=== PATIENT | female | born 1940 | race Caucasian/White ===

== ENCOUNTER → 2016-03-16 | Outpatient (CLI) | payer OTHER, MEDICARE ==
[~2016-03-16] MED LIST: ACET325T96 PO; ALBUAER2 INH; ALPHTAB4 PO; AMLO2.5T PO; ASCO250T4 PO; CALC1TAB9 PO; CARB6.5D11 OTB; CHOL100010 PO; CICL160A INH; COEN100C7 PO; ESTR10TA PV; FEXO1TAB49 PO; LEVO50TA PO; LEVO75TA PO; MISCCAP80 PO; MONT1TAB3 PO; MULT-845 PO; PANT40TA PO; POLY335019 PO; SALI1SPR3
[2016-03-16 16:44] LABS: BASO % 1.1 %; BASO ABS # 0.05 K/uL (0-0.2); COMPLETE YES; EOS % 0.4 %; HEMATOCRIT 41.8 % (37-47); IG% 0.2 %; LYMPH % 23.2 %; LYMPH ABS # 1.04 K/uL (1.2-3.4); MEAN CELL VOLUME 89.7 fL (80-100); MEAN CORPUSCULAR HEMOGLOBIN 30.3 pg (25-34); MEAN CORPUSCULAR HGB CONC 33.7 g/dl (32-36); MEAN PLATELET VOLUME 11.4 fL (7.4-10.4); MONO % 9.4 %; NEUT % 65.7 %; PLATELET COUNT 181 K/uL (130-400); RED BLOOD COUNT 4.66 M/uL (4.2-5.4); WHITE BLOOD COUNT 4.48 K/uL (4.8-10.8)
[2016-03-16 16:51] LABS: BLOOD UREA NITROGEN 20 mg/dl (7-18); BUN/CREATININE RATIO 25.2 (10-20); CALCIUM 9.2 mg/dl (8.5-10.1); CARBON DIOXIDE 24 mmol/L (21-32); CHLORIDE 107 mmol/L (98-107); GLUCOSE 98 mg/dl (70-99); POTASSIUM 3.7 mmol/L (3.5-5.1); SODIUM 143 mmol/L (136-145)
[2016-03-16 16:54] LABS: ALB/GLOB RATIO 1.2 (0.9-2); ALKALINE PHOSPHATASE 87 U/L (45-117); ALT/SGPT 21 U/L (12-78); AST/SGOT 20 U/L (15-37)
== END | disposition home or self-care (01) ==
LOC: C.LAB1850 15:23
PROVIDERS: ATTEND Internal Medicine
DX: D69.3 Immune thrombocytopenic purpura (principal)

== ENCOUNTER → 2016-05-24 | Outpatient (CLI) | payer OTHER, MEDICARE | END | disposition home or self-care (01) | LOC: C.PATH 13:24 | PROVIDERS: ATTEND Dermatology | DX: L60.1 Onycholysis (principal) ==

== ENCOUNTER → 2016-07-06 | Outpatient (CLI) | payer OTHER, MEDICARE | END | disposition home or self-care (01) | LOC: C.PATHSPEC 07-05 17:24 → C.LABSPEC 14:24 | PROVIDERS: ATTEND Dermatology | DX: L08.9 Local infection of the skin and subcutaneous tissue, unspecified (principal) ==

== ENCOUNTER → 2016-07-12 | Outpatient (CLI) | payer OTHER, MEDICARE ==
[2016-07-12 14:53] LABS: BLOOD UREA NITROGEN 22 mg/dl (7-18); BUN/CREATININE RATIO 28.2 (10-20); CARBON DIOXIDE 25 mmol/L (21-32); CHLORIDE 106 mmol/L (98-107); CHOLESTEROL 305 mg/dl (0-200); CREATININE 0.78 mg/dl (0.60-1.20); GLUCOSE 99 mg/dl (70-99); POTASSIUM 3.5 mmol/L (3.5-5.1); SODIUM 143 mmol/L (136-145); TRIGLYCERIDES 69 mg/dl (0-150); VERY LOW DENSITY LIPOPROT CALC 14 mg/dl
[2016-07-12 14:55] LABS: CALCIUM 9.6 mg/dl (8.5-10.1)
[2016-07-12 15:04] LABS: CHOLESTEROL/HDL RATIO 3.2; HDL CHOLESTEROL 95 mg/dl; LDL CHOLESTEROL CALCULATED 196 mg/dl
== END | disposition home or self-care (01) ==
LOC: C.LAB1850 13:11
PROVIDERS: ATTEND Internal Medicine
DX: E78.5 Hyperlipidemia, unspecified (principal); E03.9 Hypothyroidism, unspecified; I10 Essential (primary) hypertension; J45.909 Unspecified asthma, uncomplicated

== ENCOUNTER → 2016-09-14 | Outpatient (CLI) | payer OTHER, MEDICARE ==
--- NOTE | 2016-09-14 16:19 | MAMMOGRAPHY REPORT ---
BILATERAL DIGITAL SCREENING MAMMOGRAM TOMOSYNTHESIS WITH CAD: 09/14/2016 CLINICAL HISTORY: Routine screening. Patient has no complaints. TECHNIQUE: Breast tomosynthesis in addition to standard 2D mammography was performed. Current study was also evaluated with a Computer Aided Detection (CAD) system. COMPARISON: Comparison is made to exams dated: 09/08/2015 mammogram, 09/02/2014 mammogram, 09/01/2013 m ammogram, 08/29/2012 mammogram, 08/29/2011 mammogram, and 08/25/2010 mammogram - [facility] enter. BREAST COMPOSITION: The tissue of both breasts is heterogeneously dense, which may obscure small mas ses. FINDINGS: There is evidence of previous surgery in the posterior 12:00 right breast. There are mo derate vascular calcifications and benign-appearing rim calcifications in the breasts. No new suspic ious mass, architectural distortion or cluster of microcalcifications is seen bilaterally. IMPRESSION: ACR BI-RADS CATEGORY 2: BENIGN Stable bilateral mammograms, without mammographic evidence of malignancy. A 1 year screening mammogra m is recommended. The patient will receive written notification of the results. Approximately 10% of breast cancers are not detected with mammography. A negative mammographic report should not delay biopsy if a clinically suggestive mass is present. Sophie Joyce M.D. ay/:09/14/2016 15:26:36 Global Climate Change Researcher: Lacie STALLINGS(Melodie)(Manpreet)(BD), [facility] letter sent: Normal 1/2 BI-RADS Code: ACR BI-RADS Category 2: Benign
== END | disposition home or self-care (01) ==
LOC: C.MAMM 14:46
PROVIDERS: ATTEND Obstetrics & Gynecology
DX: Z12.31 Encounter for screening mammogram for malignant neoplasm of breast (principal); Z85.3 Personal history of malignant neoplasm of breast

== ENCOUNTER → 2016-10-02 | Outpatient (CLI) | payer OTHER, MEDICARE ==
[2016-10-05 14:15] LABS: HERPES SIMPLEX CULT SOURCE OTHER-LOWER LIP; HERPES SIMPLEX VIRUS CULT NOT ISOLATED (NOT ISOLATED)
== END | disposition home or self-care (01) ==
LOC: C.LABSPEC 17:40
PROVIDERS: ATTEND Dermatology
DX: B00.9 Herpesviral infection, unspecified (principal); B35.1 Tinea unguium

== ENCOUNTER → 2016-10-12 | Outpatient (CLI) | payer OTHER, MEDICARE ==
[2015-10-12 14:35] VITALS: BP 138/76; PULSE 64
[2016-10-12 13:52] VITALS: BP 137/71; PULSE 68; TEMP 36.8; O2SAT 97
--- NOTE | 2016-10-12 15:58 | Radiation Oncology Follow-Up ---
Radiation Oncology Follow-Up Date of Visit Oct 12, 2016. 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 She denies any changes to her breast. She has noted no masses or tenderness no change of the axilla. She's had no swelling of her arm. She is up-to-date on mammography. We did discuss at length the procedure for obtaining her mammography results. She has anxiety prior to having her mammogram and then waiting for the results. She noted that this past year she had her mammogram at the end of the week and by Sunday had a result. Previously she had to wait approximately 3 weeks. She now has screening mammograms and previously with a diagnostic mammograms she was given her results prior to leaving the breast Center. Allergies Coded Allergies: Sulfa Drugs (Verified Allergy, Intermediate, HIVES, 06/01/15) Atropine (Unverified Allergy, Mild, pain & diarrhea, 06/01/15) Diphenoxylate (Unverified Allergy, Mild, pain & diarrhea, 06/01/15) Moxifloxacin (Unverified Allergy, Mild, pain & diarrhea, 06/01/15) Amoxicillin (Unverified Allergy, Unknown, GI SYMPTOMS, 06/01/15) Cat Dander (Verified Allergy, Unknown, ALLERGIES, 06/01/15) Ciprofloxacin (Unverified Allergy, Unknown, GI SYMPTOMS, 06/01/15) Clavulanic Acid (Unverified Allergy, Unknown, GI SYMPTOMS, 06/01/15) [place] (Verified Allergy, Unknown, ALLERGIES, 06/01/15) Desloratadine (Verified Allergy, Unknown, UNK, 06/01/15) Dust (Verified Allergy, Unknown, ALLERGIES, 06/01/15) Erythromycin (Unverified Allergy, Unknown, GI SYMPTOMS, 06/01/15) Macrolides (Verified Allergy, Unknown, 06/01/15) Metronidazole (Unverified Allergy, Unknown, GI SYMPTOMS, 06/01/15) Minocycline (Unverified Allergy, Unknown, GI SYMPTOMS, 06/01/15) Home Medications Scheduled Pqork-R-Gvxhhjdgqspad (Beano), 2 TAB PO DAILY Amlodipine Besylate (Norvasc), 1 TAB PO DAILY Ascorbic Acid (Vitamin C), 1 TAB PO DAILY Calcium Citrate-Vitamin D (Citracal + D3 Maximum), 1 TAB PO BID Cholecalciferol (Vitamin D), 1,000 INTER.UNIT PO BID Ciclesonide (Alvesco), 1 PUFF INH DAILY Coenzyme Q10 (Ubidecarenone) (Coq10), 1 CAP PO DAILY Estradiol Vaginal (Vagifem), 1 TAB PV 3XWK Fexofenadine Hcl (Estee Allergy), 1 TAB PO DAILY Levothyroxine Sodium (Synthroid), 1 TAB PO Q2D Levothyroxine Sodium (Synthroid), 1 TAB PO Q2D Montelukast Sodium (Singulair), 1 TAB PO HS Multiple Vitamins W/ Minerals (Centrum Silver Adult 50+), 1 TAB PO Q2D Pantoprazole Sodium (Protonix), 1 TAB PO BID Polyethylene Glycol 3350 (Miralax), 17 GM PO HS Probiotic Product (Probiotic), 1 CAP PO DAILY Scheduled PRN Acetaminophen Tab (Tylenol), 325 MG PO Q6 PRN for prn Albuterol (Ventolin), 2 PUFFS INH QID PRN for SOB/Wheezing Carbamide Peroxide (Otic) (Ear Drops), 1 DROP OTB for prn Saline (Saline Nasal [place]), 1 SPRAY NA QID PRN for prn Review of Systems Gastrointestinal: Symptoms: Constipation GI Comments: Constipation manageable with miralax; Oral: Symptoms: No Problems Respiratory: Symptoms: Dry Cough Other Respiratory: That she relates to a constan postnasal drip; Urinary: Symptoms: Frequency Comments: Follows with Dr. Joyce for blood in urine; Skin: Symptoms: No Problems Breast: Right Upper Arm Measurement: 25.3 Right Mid Arm Measurement: 21.0 Right Wrist Measurement: 15.3 Left Upper Arm Measurement: 27.0 Left Mid Arm Measurement: 21.0 Left Wrist Measurement: 16.3 Arm Dominence: Right Patient Cosmetic Evaluation: Excellent Staff Cosmetic Evalaluation: Excellent Physical Exam Vital Signs Date Time Temp Pulse Resp B/P (MAP) Pulse Ox O2 Delivery O2 Flow Rate FiO2 10/12/16 13:52 36.8 68 12 137/71 97 Pain: Side: Bilateral Patient Pain Scale: 0 - 10 Initial Pain Intensity: 0.0 Fatigue: None General Appearance: no apparent distress Eyes: normal inspection, EOMI ENT: normal ENT inspection, hearing grossly normal Neck: no adenopathy, thyroid normal Respiratory/Chest: lungs clear, no respiratory distress, no accessory muscle use Breast: Right breast reveals well-healed incisions. There are no masses or tenderness and no axillary adenopathy. She has no skin retractions or nipple changes. Using the [place] score cosmesis she has a in excellent outcome. Left breast shows no masses or tenderness and no axillary adenopathy. Cardiovascular: regular rate, rhythm, no gallop, no murmur Abdomen: non tender, soft, no organomegaly Extremities: no pedal edema Neurologic/Psychiatric: no motor/sensory deficits, alert, normal mood/affect Skin: warm/dry Laboratory Studies Test 07/12/16 13:23 10/02/16 00:00 10/12/16 14:44 Sodium Level 143 mmol/L (136-145) 142 mmol/L (136-145) Potassium Level 3.5 mmol/L (3.5-5.1) 3.8 mmol/L (3.5-5.1) Chloride Level 106 mmol/L (98-107) 109 mmol/L (98-107) Carbon Dioxide Level 25 mmol/L (21-32) 28 mmol/L (21-32) Anion Gap 12.0 mmol/L (3-11) 5.0 mmol/L (3-11) Blood Urea Nitrogen 22 mg/dl (7-18) 21 mg/dl (7-18) Creatinine 0.78 mg/dl (0.60-1.20) 0.74 mg/dl (0.60-1.20) Estimated GFR () 84.4 89.9 Estimated GFR (Non- 72.8 77.6 BUN/Creatinine Ratio 28.2 (10-20) 27.8 (10-20) Random Glucose 99 mg/dl (70-99) 95 mg/dl (70-99) Calcium Level 9.6 mg/dl (8.5-10.1) 9.3 mg/dl (8.5-10.1) Triglycerides Level 69 mg/dl (0-150) Cholesterol Level 305 mg/dl (0-200) HDL Cholesterol 95 mg/dl LDL Cholesterol, Calculated 196 mg/dl VLDL Cholesterol, Calculated 14 mg/dl Cholesterol/HDL Ratio 3.2 Thyroid Stimulating Hormone (TSH) 1.360 uIu/ml (0.300-4.500) Herpes Simplex Virus Culture Source OTHER-LOWER LIP Herpes Simplex Virus Culture NOT ISOLATED (NOT ISOLATED) White Blood Count 4.20 K/uL (4.8-10.8) Red Blood Count 4.64 M/uL (4.2-5.4) Hemoglobin 14.0 g/dL (12.0-16.0) Hematocrit 42.3 % (37-47) Mean Corpuscular Volume 91.2 fL (80-100) Mean Corpuscular Hemoglobin 30.2 pg (25-34) Mean Corpuscular Hemoglobin Concent 33.1 g/dl (32-36) Platelet Count 140 K/uL (130-400) Mean Platelet Volume 10.3 fL (7.4-10.4) Neutrophils (%) (Auto) 58.9 % Lymphocytes (%) (Auto) 27.9 % Monocytes (%) (Auto) 11.2 % Eosinophils (%) (Auto) 1.0 % Basophils (%) (Auto) 1.0 % Neutrophils # (Auto) 2.48 K/uL (1.4-6.5) Lymphocytes # (Auto) 1.17 K/uL (1.2-3.4) Monocytes # (Auto) 0.47 K/uL (0.11-0.59) Eosinophils # (Auto) 0.04 K/uL (0-0.5) Basophils # (Auto) 0.04 K/uL (0-0.2) RDW Standard Deviation 49.4 fL (36.4-46.3) RDW Coefficient of Variation 14.7 % (11.5-14.5) Immature Granulocyte % (Auto) 0.0 % Immature Granulocyte # (Auto) 0.00 K/uL (0.00-0.02) Est Creatinine Clear Calc Drug Dose 63.6 ml/min Total Bilirubin 0.8 mg/dl (0.2-1) Aspartate Amino Transferase (AST) 19 U/L (15-37) Alanine Aminotransferase (ALT) 25 U/L (12-78) Alkaline Phosphatase 83 U/L (45-117) Lactate Dehydrogenase 183 U/L (84-246) Total Protein 7.2 gm/dl (6.4-8.2) Albumin 4.0 gm/dl (3.4-5.0) Globulin 3.2 gm/dl (2.5-4.0) Albumin/Globulin Ratio 1.3 (0.9-2) Additional Studies Patient: NICK ROMERO Rec: [id number] Address1: [address] Address2: Acct ID: [id number] Date: 1940 Sex: F Ref Phy: Heide Farley M.D. Att Phy: Heide Farley M.D. Elvia Phy: Luis Daniel Flores M.D. Inter Phy: Sophie Joyce MD [facility] Zip: [place] [address] SC: C.MAMM Report #: [id number] Supervisor [place] Department: [facility] Diagnosis: ASYMPTOMATIC, HX BREAST CANCER Service Date: 09/14/16 MNE: [id number] Ordering Dr: Heide Farley M.D. CC: Heide Farley M.D. CONF: DICTATED BY: Sophie Joyce MD MAMMOGRAPHY REPORT BILATERAL DIGITAL SCREENING MAMMOGRAM TOMOSYNTHESIS WITH CAD: 09/14/2016 CLINICAL HISTORY: Routine screening. Patient has no complaints. TECHNIQUE: Breast tomosynthesis in addition to standard 2D mammography was performed. Current study was also evaluated with a Computer Aided Detection (CAD ) system. COMPARISON: Comparison is made to exams dated: 09/08/2015 mammogram, 09/02/2014 mammogram, 09/01/2013 mammogram, 08/29/2012 mammogram, 08/29/2011 mammogram, and mammogram - [facility]. BREAST COMPOSITION: The tissue of both breasts is heterogeneously dense, which may obscure small masses. FINDINGS: There is evidence of previous surgery in the posterior 12:00 right breast. There are moderate vascular calcifications and benign-appearing rim calcifications in the breasts. No new suspicious mass, architectural distortion or cluster of microcalcifications is seen bilaterally. IMPRESSION: ACR BI-RADS CATEGORY 2: BENIGN Stable bilateral mammograms, without mammographic evidence of malignancy. A 1 year screening mammogram is recommended. The patient will receive written notification of the results. Approximately 10% of breast cancers are not detected with mammography. A negative mammographic report should not delay biopsy if a clinically suggestive mass is present. Sophie Joyce M.D. ay/:09/14/2016 15:26:36 Production Potter: Lacie BOYER)(Manpreet)(BD), [facility] letter sent: Normal 1/2 BI-RADS Code: ACR BI-RADS Category 2: Benign Dictated by: Sophie Joyce MD Signed by: Sophie Joyce MD Assessment & Plan Continue annual mammography. We discussed having her mammogram scheduled on a Sunday so that she could have her results by Sunday. We also discussed the patient portal its available at [facility]. She currently does not have this available at home. I discussed with her she could have her results the next day if she wanted to set up this program. She was happy with the idea of having a mammogram earlier in the week to have the results by Sunday. We asked her to return to our office in 1 year. She may call if she has any questions or concerns in the interim. Total Time In Follow-Up I spent 20 minutes the patient performing examination. I spent 15 minutes reviewing information on completing this note. Copy To Abraham Morfin D.O.; ,Luis Daniel Miner M.D.
== END | disposition home or self-care (01) ==
LOC: C.ONC 13:28
PROVIDERS: ATTEND Physician Assistant Medical
DX: Z08 Encounter for follow-up examination after completed treatment for malignant neoplasm (principal); Z92.3 Personal history of irradiation; Z85.3 Personal history of malignant neoplasm of breast; D69.3 Immune thrombocytopenic purpura

== ENCOUNTER → 2016-10-26 | Outpatient (CLI) | payer OTHER, MEDICARE ==
--- NOTE | 2016-10-26 18:20 | DIAGNOSTIC IMAGING REPORT ---
ABDOMEN 2VIEW W/PA CHEST RTN CLINICAL HISTORY: 76 years-old Female presenting with CONSTIPATION. TECHNIQUE: PA view of the chest and supine and upright views of the abdomen were obtained. COMPARISON: CT from 06/01/2015. FINDINGS: Carotid mediastinal silhouette lungs and pleural spaces clear. Degenerative changes of the right glenohumeral joint.. Nonobstructive bowel gas pattern. Moderate stool burden noted in the colon. No gross pneumoperitoneum. Calcification in the pelvis system with calcified uterine fibroid. Splenic arterial calcifications also noted. No convincing evidence of calcifications projecting over the kidneys or along the courses of the ureters. Scoliotic curvature of the spine with associated degenerative changes. IMPRESSION: 1. No acute cardiopulmonary disease. 2. Moderate stool burden consistent with constipation. No bowel obstruction. Electronically signed by: Andres Mackey M.D. 10/26/2016 6:19 PM Dictated Date/Time: 10/26/2016 6:15 PM
== END | disposition home or self-care (01) ==
LOC: C.RAD 17:51
PROVIDERS: ATTEND Registered Nurse
DX: K59.00 Constipation, unspecified (principal)

== ENCOUNTER → 2016-12-06 | Outpatient (CLI) | payer OTHER, MEDICARE ==
[2016-12-06 17:33] LABS: BASO % 1.9 %; BASO ABS # 0.07 K/uL (0-0.2); COMPLETE YES; EOS % 1.1 %; HEMATOCRIT 42.3 % (37-47); IG% 0.3 %; LYMPH ABS # 1.16 K/uL (1.2-3.4); MEAN CELL VOLUME 91.6 fL (80-100); MEAN CORPUSCULAR HEMOGLOBIN 29.7 pg (25-34); MEAN CORPUSCULAR HGB CONC 32.4 g/dl (32-36); MEAN PLATELET VOLUME 10.6 fL (7.4-10.4); MONO % 7.4 %; NEUT % 57.3 %; PLATELET COUNT 168 K/uL (130-400); RED BLOOD COUNT 4.62 M/uL (4.2-5.4); WHITE BLOOD COUNT 3.63 K/uL (4.8-10.8)
[2016-12-06 17:55] LABS: ALT/SGPT 27 U/L (12-78); BLOOD UREA NITROGEN 22 mg/dl (7-18); BUN/CREATININE RATIO 26.9 (10-20); CALCIUM 9.6 mg/dl (8.5-10.1); CARBON DIOXIDE 24 mmol/L (21-32); CHLORIDE 107 mmol/L (98-107); CREATININE 0.83 mg/dl (0.60-1.20); GLUCOSE 91 mg/dl (70-99); POTASSIUM 3.8 mmol/L (3.5-5.1); SODIUM 143 mmol/L (136-145)
[2016-12-06 18:06] LABS: ALB/GLOB RATIO 1.2 (0.9-2); ALKALINE PHOSPHATASE 86 U/L (45-117); AST/SGOT 24 U/L (15-37)
== END | disposition home or self-care (01) ==
LOC: C.LAB1850 16:39
PROVIDERS: ATTEND Internal Medicine
DX: D69.3 Immune thrombocytopenic purpura (principal); E03.9 Hypothyroidism, unspecified

== ENCOUNTER → 2017-01-26 | Outpatient (CLI) | payer OTHER, MEDICARE ==
--- NOTE | 2017-01-26 17:53 | DIAGNOSTIC IMAGING REPORT ---
RIGHT HIP 2 VIEWS HISTORY: Right HIP PAIN COMPARISON: None. FINDINGS: There is no fracture or dislocation. Soft tissues are unremarkable. Mild cartilage space narrowing within the right hip and tiny marginal osteophytes. This is consistent with degenerative change. The visualized pelvic bones are intact. IMPRESSION: Mild right hip osteoarthritis. No fracture or dislocation. Electronically signed by: Hugo Drake M.D. 01/26/2017 5:51 PM Dictated Date/Time: 01/26/2017 5:50 PM
== END | disposition home or self-care (01) ==
LOC: C.RAD1850 16:39
PROVIDERS: ATTEND Internal Medicine
DX: M25.551 Pain in right hip (principal)

== ENCOUNTER 2017-03-13 19:26 | Emergency (ER) | payer OTHER, MEDICARE ==
[~2017-03-13] VITALS: Ht 167.6 cm; Wt 72.2 kg
[~2017-03-13 19:26] MED LIST changes: -ACET-1693 PO; +ACET325T96 PO; -BLACK PEPPER PO; -CEFD1CAP14 PO; -CHOL100027 PO; -IVER1CRE TOP; -MOME0.1O3 TOP; -NZRCR TOP; -PLMINS INH; -PRD10 PO; -PRVHFAIN INH; -SALI-3; +SALI1SPR3; -SNG10 PO; -SYN50 PO; -SYN75 PO; -UBIDECARENONE PO; -VGFVS/24 PV; -XRL20 PO
[2017-03-13 19:42] VITALS: TEMP 37.2; Ht 167.6 cm; Wt 72.2 kg
[2017-03-13] MEDS ORDERED: ALBUT/IPRATROP 3MG/0.5MG NEB 3 ML VIAL INH STA (20:30)
[2017-03-13] MEDS ORDERED: CEFTRIAXONE SOD INJ 1 GM ADDVIAL IV STA (20:33)
--- NOTE | 2017-03-13 20:40 | EMERGENCY ROOM VISIT NOTE ---
History Report prepared by Nico: Yani Brumfield Under the Supervision of: Dr. Luis Daniel Watts D.O. First contact with patient: 20:21 Chief Complaint: RESPIRATORY PROBLEMS Stated Complaint: PNEUMONIA- PHYSICIAN REFERRED History of Present Illness The patient is a 76 year old female who presents to the Emergency Room with complaints of worsening generalized illness beginning ten days ago. The patient notes that on Sunday, ten days ago, she started to feel fatigued and short of breath. She also reports a productive cough, abdominal pain, and decreased appetite but denies urinary symptoms or increased swelling to her legs. At baseline, the patient has swelling to her legs. The patient was able to get into her PCP's office today. While there, she had a chest x-ray. Then she was told she had pneumonia and was refereed to the ED. She denies having a flu swab at her PCPs office today. The patient has a history of IBS. The patient notes sensitivity to antibiotics. The patient does not drink alcohol and denies any recent travel. Source of History: patient Onset: ten days ago Position: other (generalized illness) Quality: other (illness) Timing: worsening Associated Symptoms: + cough, + SOB, + abdominal pain, + fatigue, No urinary symptoms Review of Systems See HPI for pertinent positives & negatives. A total of 10 systems reviewed and were otherwise negative. Past Medical & Surgical Medical Problems: (1) Asthma (2) Breast cancer (3) Hypertension (4) Positive ARTEMIO (antinuclear antibody) (5) Thrombocytopenia (6) Vaginal irritation Family History Cancer Diabetes mellitus Heart disease Hypertension Lung disease Social History Smoking Status: Never Smoker Alcohol Use: none Housing Status: lives with family Occupation Status: unemployed Current/Historical Medications Scheduled Opmxq-K-Qfdhuueyrkyef (Beano), 2 TABS PO DAILY Amlodipine Besylate (Norvasc), 2.5 MG PO DAILY Ascorbic Acid (Vitamin C), 250 MG PO DAILY Calcium Citrate-Vitamin D (Citracal + D3 Maximum), 1 TAB PO BID Cefdinir (Omnicef), 300 MG PO Q12H Cholecalciferol (Vitamin D 1000 Unit), 2,000 INTER.UNIT PO DAILY Ciclesonide (Alvesco), 1 PUFF INH DAILY Coenzyme Q10 (Ubidecarenone) (Coq10), 100 MG PO DAILY Estradiol (Vagifem), 10 MCG PV 3XWK Ivermectin (Rosacea) (Soolantra), 1 APPLN TOP DAILY Levothyroxine Sodium (Synthroid), 50 MCG PO Q2D Levothyroxine Sodium (Synthroid), 75 MCG PO Q2D Montelukast Sod (Montelukast Sodium), 10 MG PO HS Multiple Vitamins W/ Minerals (Centrum Silver Adult 50+), 1 TAB PO Q2D Pantoprazole Sodium (Protonix), 40 MG PO BID Probiotic Product (Probiotic), 1 CAP PO DAILY Scheduled PRN Acetaminophen Tab (Tylenol), 325 MG PO Q6H PRN for Pain or Fever Albuterol (Ventolin Hfa), 2 PUFFS INH Q6H PRN for SOB/Wheezing Fexofenadine Hcl (Estee Allergy), 180 MG PO DAILY PRN for Allergy Symptoms Polyethylene Glycol 3350 (Miralax), 17 GM PO BID PRN for Constipation Saline (Saline Nasal [place]), 1 SPRAY NA QID PRN for Nasal Dryness Allergies Coded Allergies: Sulfa Drugs (Verified Allergy, Intermediate, HIVES, 06/01/15) Atropine (Unverified Allergy, Mild, pain & diarrhea, 06/01/15) Diphenoxylate (Unverified Allergy, Mild, pain & diarrhea, 06/01/15) Moxifloxacin (Unverified Allergy, Mild, pain & diarrhea, 06/01/15) Amoxicillin (Unverified Allergy, Unknown, GI SYMPTOMS, 06/01/15) Cat Dander (Verified Allergy, Unknown, ALLERGIES, 06/01/15) Ciprofloxacin (Unverified Allergy, Unknown, GI SYMPTOMS, 06/01/15) Clavulanic Acid (Unverified Allergy, Unknown, GI SYMPTOMS, 06/01/15) [place] Tree (Verified Allergy, Unknown, ALLERGIES, 06/01/15) Desloratadine (Verified Allergy, Unknown, UNK, 06/01/15) Dust (Verified Allergy, Unknown, ALLERGIES, 06/01/15) Erythromycin (Unverified Allergy, Unknown, GI SYMPTOMS, 06/01/15) Macrolides (Verified Allergy, Unknown, 06/01/15) Metronidazole (Unverified Allergy, Unknown, GI SYMPTOMS, 06/01/15) Minocycline (Unverified Allergy, Unknown, GI SYMPTOMS, 06/01/15) Physical Exam Vital Signs Date Time Temp Pulse Resp B/P (MAP) Pulse Ox O2 Delivery O2 Flow Rate FiO2 03/13/17 23:01 84 145/64 95 03/13/17 22:46 88 16 94 03/13/17 22:31 84 19 94 03/13/17 22:30 147/71 03/13/17 22:16 90 20 94 03/13/17 22:01 83 139/73 95 03/13/17 21:46 84 100 03/13/17 21:41 85 100 03/13/17 21:31 144/83 03/13/17 21:26 78 12 100 03/13/17 21:17 157/86 03/13/17 21:11 72 03/13/17 21:11 79 20 96 Room Air 03/13/17 19:42 37.2 100 20 141/78 100 Room Air Physical Exam GENERAL: Patient is awake, alert, and in no acute distress. Patient is mildly anxious appearing but resting comfortably. EYES: The conjunctivae are clear. The pupils are round and reactive. EARS, NOSE, MOUTH AND THROAT: The nose is without any evidence of any deformity. Mucous membranes are moist tongue is midline NECK: The neck is nontender and supple. RESPIRATORY: Lung sounds diminished throughout, scattered rhonchi, diminished breath sounds at right base. CARDIOVASCULAR: Irregular rate, no definite murmurs noted to auscultation. GASTROINTESTINAL: The abdomen is soft. Bowel sounds are present in all quadrants. Abdomen is nontender MUSCULOSKELETAL/EXTREMITIES: There is no evidence of gross deformity full range of motion is noted in the hips and shoulders SKIN: There is no obvious evidence of any rash. There are no petechiae, pallor or cyanosis noted. NEUROLOGIC: Patient is awake alert and oriented x3 Medical Decision & Procedures Laboratory Results 03/13/17 21:10 Red Blood Count 4.31, Mean Corpuscular Volume 89.8, Mean Corpuscular Hemoglobin 30.4, Mean Corpuscular Hemoglobin Concent 33.9, Mean Platelet Volume 10.3, Neutrophils (%) (Auto) 74.6, Lymphocytes (%) (Auto) 13.6, Monocytes (%) (Auto) 11.3, Eosinophils (%) (Auto) 0.3, Basophils (%) (Auto) 0.1, Neutrophils # (Auto ) 5.00, Lymphocytes # (Auto) 0.91, Monocytes # (Auto) 0.76, Eosinophils # (Auto ) 0.02, Basophils # (Auto) 0.01 03/13/17 21:10 Test 03/13/17 21:10 White Blood Count 6.71 K/uL (4.8-10.8) Red Blood Count 4.31 M/uL (4.2-5.4) Hemoglobin 13.1 g/dL (12.0-16.0) Hematocrit 38.7 % (37-47) Mean Corpuscular Volume 89.8 fL (80-100) Mean Corpuscular Hemoglobin 30.4 pg (25-34) Mean Corpuscular Hemoglobin Concent 33.9 g/dl (32-36) Platelet Count 247 K/uL (130-400) Mean Platelet Volume 10.3 fL (7.4-10.4) Neutrophils (%) (Auto) 74.6 % Lymphocytes (%) (Auto) 13.6 % Monocytes (%) (Auto) 11.3 % Eosinophils (%) (Auto) 0.3 % Basophils (%) (Auto) 0.1 % Neutrophils # (Auto) 5.00 K/uL (1.4-6.5) Lymphocytes # (Auto) 0.91 K/uL (1.2-3.4) Monocytes # (Auto) 0.76 K/uL (0.11-0.59) Eosinophils # (Auto) 0.02 K/uL (0-0.5) Basophils # (Auto) 0.01 K/uL (0-0.2) RDW Standard Deviation 46.4 fL (36.4-46.3) RDW Coefficient of Variation 14.1 % (11.5-14.5) Immature Granulocyte % (Auto) 0.1 % Immature Granulocyte # (Auto) 0.01 K/uL (0.00-0.02) Prothrombin Time 11.4 SECONDS (9.0-12.0) Prothromb Time International Ratio 1.1 (0.9-1.1) Activated Partial Thromboplast Time 29.0 SECONDS (21.0-31.0) Partial Thromboplastin Ratio 1.1 Anion Gap 8.0 mmol/L (3-11) Est Creatinine Clear Calc Drug Dose 73.7 ml/min Estimated GFR () 99.1 Estimated GFR (Non- 85.5 BUN/Creatinine Ratio 16.7 (10-20) Calcium Level 8.7 mg/dl (8.5-10.1) Total Bilirubin 0.6 mg/dl (0.2-1) Aspartate Amino Transf (AST/SGOT) 15 U/L (15-37) Alanine Aminotransferase (ALT/SGPT) 23 U/L (12-78) Alkaline Phosphatase 99 U/L (45-117) Troponin I < 0.015 ng/ml (0-0.045) Total Protein 7.2 gm/dl (6.4-8.2) Albumin 3.5 gm/dl (3.4-5.0) Globulin 3.7 gm/dl (2.5-4.0) Albumin/Globulin Ratio 0.9 (0.9-2) Laboratory results per my review. Medications Administered Medications (Trade) Dose Ordered Sig/Drew Route Start Time Stop Time Status Last Admin Dose Admin Albuterol/ Ipratropium (Duoneb) 3 ml NOW STAT INH 03/13/17 20:30 03/13/17 20:33 DC 03/13/17 21:23 3 ML Ceftriaxone Sodium (Rocephin Inj) 1 gm NOW STAT IV 03/13/17 20:33 03/13/17 20:34 DC 03/13/17 21:37 1 GM Potassium Chloride (Klor-Con M10) 10 meq NOW STAT PO 03/13/17 22:52 03/13/17 22:53 DC 03/13/17 23:02 10 MEQ ECG Indication: SOB/dyspnea Rate (beats per minute): 67 Rhythm: atrial fibrillation Findings: other (No PVC, no acute ST segment) Comparison ECG Date: 08/01/08 Change: Atrial fibrillation new. ED Course 2026: The patient was evaluated in room B11B. A complete history and physical examination were performed. 2029: Ordered Duoneb 3ml INH. 2032: Ordered Rocephin Inj 1 gm IV. 2145: The patient states she has a history of atrial fibrillation but is not on any anticoagulation. 2251: Ordered Potassium Chloride 10 meq PO. 2302: Upon reevaluation, the patient is resting comfortably. I discussed the results and treatment plan with the patient. She verbalized agreement of the treatment plan. The patient was discharged home. Medical Decision Differential diagnosis: Etiologies such as infections, reactive airway disease, pneumonia, pneumothorax , COPD, CHF, cardiac ischemia, pulmonary embolism, musculoskeletal, gastrointestinal, as well as others were entertained. Nursing notes reviewed. The patient's chest x-ray from earlier was also reviewed. The patient is a 76-year-old female who presented to the emergency department at the request of her primary care physician for pneumonia. The patient's had a cough. She had a chest x-ray is an outpatient showed a pneumonia. The patient was not hypoxic. She was treated with IV antibiotic in emergency department. I discussed the patient's laboratory and radiographic studies with her. She was encouraged to continue all medications as prescribed and follow-up with her family doctor this week. Otherwise she was encouraged to rest and avoid any strenuous activity and return to the emergency department immediately if symptoms change worsen or the need arises. Medication Reconcilliation Current Medication List: was personally reviewed by me Blood Pressure Screening Patient's blood pressure: Elevated blood pressure Blood pressure disposition: Elevated BP felt to be situational Impression Primary Impression: Pneumonia Scribe Attestation The scribe's documentation has been prepared under my direction and personally reviewed by me in its entirety. I confirm that the note above accurately reflects all work, treatment, procedures, and medical decision making performed by me. Departure Information Dispostion Home / Self-Care Prescriptions Cefdinir (Omnicef) 300 Mg Cap 300 MG PO Q12H, #14 CAP Prov: Luis Daniel Watts, DO 03/13/17 Referrals Luis Daniel Flores M.D. (PCP) Forms HOME CARE DOCUMENTATION FORM, IMPORTANT VISIT INFORMATION, WORK / SCHOOL INSTRUCTIONS Patient Instructions My [facility], Pneumonia Additional Instructions Follow-up with your family for reevaluation. Continue all medications as prescribed. Drink plenty clear liquids. I would recommend that you have a repeat EKG as well as repeat electrolytes to recheck the abnormalities were noted in the emergency Department this evening. Problem Qualifiers Primary Impression: Pneumonia Pneumonia type: due to unspecified organism Laterality: unspecified laterality Lung location: unspecified part of lung Qualified Codes: J18.9 - Pneumonia, unspecified organism
[2017-03-13 21:33] LABS: BASO % 0.1 %; BASO ABS # 0.01 K/uL (0-0.2); EOS % 0.3 %; EOS ABS # 0.02 K/uL (0-0.5); HEMATOCRIT 38.7 % (37-47); HEMOGLOBIN 13.1 g/dL (12.0-16.0); IG# 0.01 K/uL (0.00-0.02); LYMPH % 13.6 %; LYMPH ABS # 0.91 K/uL (1.2-3.4); MEAN CELL VOLUME 89.8 fL (80-100); MEAN CORPUSCULAR HEMOGLOBIN 30.4 pg (25-34); MEAN CORPUSCULAR HGB CONC 33.9 g/dl (32-36); MEAN PLATELET VOLUME 10.3 fL (7.4-10.4); MONO % 11.3 %; MONO ABS # 0.76 K/uL (0.11-0.59); NEUT % 74.6 %; PLATELET COUNT 247 K/uL (130-400); RED CELL DISTRIBUTION WIDTH CV 14.1 % (11.5-14.5); RED CELL DISTRIBUTION WIDTH SD 46.4 fL (36.4-46.3); WHITE BLOOD COUNT 6.71 K/uL (4.8-10.8)
[2017-03-13 21:43] LABS: INR 1.1 (0.9-1.1)
[2017-03-13] MEDS ORDERED: SNG10 PO (22:06)
[2017-03-13] MEDS ORDERED: SYN75 PO (22:06)
[2017-03-13] MEDS ORDERED: SYN50 PO (22:06)
[2017-03-13] MEDS ORDERED: IVER1CRE TOP (22:06)
[2017-03-13] MEDS ORDERED: VGFVS/24 PV (22:06)
[2017-03-13 22:21] LABS: ALBUMIN 3.5 gm/dl (3.4-5.0); ALKALINE PHOSPHATASE 99 U/L (45-117); ALT/SGPT 23 U/L (12-78); AST/SGOT 15 U/L (15-37); BLOOD UREA NITROGEN 11 mg/dl (7-18); CALCIUM 8.7 mg/dl (8.5-10.1); CARBON DIOXIDE 27 mmol/L (21-32); CREATININE 0.64 mg/dl (0.60-1.20); GLUCOSE 107 mg/dl (70-99); POTASSIUM 2.9 mmol/L (3.5-5.1); SODIUM 139 mmol/L (136-145); TOTAL PROTEIN 7.2 gm/dl (6.4-8.2)
[2017-03-13] MEDS ORDERED: PRVHFAIN INH (22:23)
[2017-03-13] MEDS ORDERED: CHOL100027 PO (22:23)
[2017-03-13] MEDS ORDERED: POTASSIUM CHLORIDE 10 MEQ TABCR PO STA (22:52)
[2017-03-13] MEDS ORDERED: CEFD1CAP14 PO (23:00)
[2017-03-13 23:01] VITALS: BP 145/64; PULSE 84; O2SAT 95
== END 2017-03-13 23:11 | disposition home or self-care (01) ==
LOC: C.EDB 19:27
DX: J18.9 Pneumonia, unspecified organism (principal); K58.9 Irritable bowel syndrome, unspecified; J45.909 Unspecified asthma, uncomplicated; I10 Essential (primary) hypertension; Z85.3 Personal history of malignant neoplasm of breast; Z80.9 Family history of malignant neoplasm, unspecified; Z83.3 Family history of diabetes mellitus; Z82.49 Family history of ischemic heart disease and other diseases of the circulatory system; Z79.899 Other long term (current) drug therapy

== ENCOUNTER → 2017-03-13 | Outpatient (CLI) | payer OTHER, MEDICARE ==
[~2017-03-13] MED LIST changes: +ACET-1693 PO; -ACET325T96 PO; +BLACK PEPPER PO; +CEFD1CAP14 PO; +CHOL100027 PO; +IVER1CRE TOP; +MOME0.1O3 TOP; +NZRCR TOP; +PLMINS INH; +PRD10 PO; +PRVHFAIN INH; +SALI-3; -SALI1SPR3; +SNG10 PO; +SYN50 PO; +SYN75 PO; +UBIDECARENONE PO; +VGFVS/24 PV; +XRL20 PO
--- NOTE | 2017-03-13 17:08 | DIAGNOSTIC IMAGING REPORT ---
CHEST 2 VIEWS ROUTINE HISTORY: 76 years-old Female R50.9 [id number] Cough productive of purulent sputum acute fever with cough COMPARISON: Acute abdominal series radiographs 10/26/2016, CT 08/03/2013 TECHNIQUE: PA and lateral views of the chest FINDINGS: Subsegmental alveolar opacities are present within the basal right lower lobe. There is associated trace right pleural effusion. No pneumothorax. Mild cardiomegaly without overt pulmonary edema. Left lung is generally clear. Atherosclerosis of the aorta. Advanced degenerative changes of the shoulders with dextroscoliosis of the lower thoracic spine. IMPRESSION: Alveolar opacities of the right lower lobe suggest pneumonia or aspiration pneumonitis. Small right pleural effusion is likely parapneumonic. The above report was generated using voice recognition software. It may contain grammatical, syntax or spelling errors. Electronically signed by: Kam Sheehan M.D. 03/13/2017 5:06 PM Dictated Date/Time: 03/13/2017 5:02 PM
== END | disposition home or self-care (01) ==
LOC: C.RAD1850 16:49
PROVIDERS: ATTEND Internal Medicine
DX: R05 Cough (principal); R50.9 Fever, unspecified; R91.8 Other nonspecific abnormal finding of lung field; J90 Pleural effusion, not elsewhere classified

== ENCOUNTER → 2017-03-16 | Outpatient (CLI) | payer OTHER, MEDICARE ==
[~2017-03-16] MED LIST changes: +ACET-1693 PO; -ACET325T96 PO; -ALBUAER2 INH; +BLACK PEPPER PO; -CARB6.5D11 OTB; +CEFD1CAP14 PO; -CHOL100010 PO; +CHOL100027 PO; -ESTR10TA PV; +IVER1CRE TOP; -LEVO50TA PO; -LEVO75TA PO; +MOME0.1O3 TOP; -MONT1TAB3 PO; +NZRCR TOP; +PLMINS INH; +PRD10 PO; +PRVHFAIN INH; +SALI-3; -SALI1SPR3; +SNG10 PO; +SYN50 PO; +SYN75 PO; +UBIDECARENONE PO; +VGFVS/24 PV; +XRL20 PO
== END | disposition home or self-care (01) ==
LOC: C.LAB1850 14:31
PROVIDERS: ATTEND Physician Assistant
DX: E87.6 Hypokalemia (principal)

== ENCOUNTER → 2017-03-29 | Outpatient (CLI) | payer OTHER, MEDICARE ==
[~2017-03-29] MED LIST changes: -ACET-1693 PO; +ACET325T96 PO; -BLACK PEPPER PO; -MOME0.1O3 TOP; -NZRCR TOP; -PLMINS INH; -PRD10 PO; -SALI-3; +SALI1SPR3; -UBIDECARENONE PO; -XRL20 PO
== END | disposition home or self-care (01) ==
LOC: C.LAB1850 15:10
PROVIDERS: ATTEND Physician Assistant
DX: E87.6 Hypokalemia (principal)

== ENCOUNTER → 2017-04-16 | Outpatient (CLI) | payer OTHER, MEDICARE ==
--- NOTE | 2017-04-16 16:17 | DIAGNOSTIC IMAGING REPORT ---
CHEST 2 VIEWS ROUTINE CLINICAL HISTORY: 76 years-old Female presenting with J18.9 community acquired pneumonia. TECHNIQUE: PA and lateral views of the chest were obtained. COMPARISON: 03/13/2017. FINDINGS: Atherosclerosis of aortic arch. Cardiac silhouette mildly enlarged. Blunting of the bilateral posterior costophrenic sulci right or on the right. No new focal infiltrate. Degenerative changes of the thoracic spine. Degenerative changes of the bilateral glenohumeral joints. Surgical clips noted in the right axilla. Upper abdomen normal. IMPRESSION: 1. Trace bilateral pleural effusions and possible minimal bibasilar atelectasis suspected. No focal infiltrate to suggest pneumonia. 2. Mild cardiomegaly. No lucila pulmonary edema. Electronically signed by: Andres Mackey M.D. 04/16/2017 4:15 PM Dictated Date/Time: 04/16/2017 4:13 PM
== END | disposition home or self-care (01) ==
LOC: C.RAD1850 15:56
PROVIDERS: ATTEND Internal Medicine Pulmonary Disease
DX: J18.9 Pneumonia, unspecified organism (principal)

== ENCOUNTER → 2017-04-24 | Outpatient (CLI) | payer OTHER, MEDICARE ==
[~2017-04-24] MED LIST changes: +ACET-1693 PO; -ACET325T96 PO
[2017-04-24 16:46] LABS: HEMATOCRIT 39.8 % (37-47); HEMOGLOBIN 13.3 g/dL (12.0-16.0); MEAN CELL VOLUME 89.4 fL (80-100); MEAN CORPUSCULAR HEMOGLOBIN 29.9 pg (25-34); MEAN CORPUSCULAR HGB CONC 33.4 g/dl (32-36); MEAN PLATELET VOLUME 11.1 fL (7.4-10.4); PLATELET COUNT 194 K/uL (130-400); RED CELL DISTRIBUTION WIDTH SD 49.1 fL (36.4-46.3); WHITE BLOOD COUNT 4.37 K/uL (4.8-10.8)
[2017-04-24 17:05] LABS: BLOOD UREA NITROGEN 26 mg/dl (7-18); CALCIUM 9.3 mg/dl (8.5-10.1); CARBON DIOXIDE 25 mmol/L (21-32); GLUCOSE 90 mg/dl (70-99); POTASSIUM 3.6 mmol/L (3.5-5.1); SODIUM 141 mmol/L (136-145)
== END | disposition home or self-care (01) ==
LOC: C.LAB1850 15:29
PROVIDERS: ATTEND Internal Medicine
DX: E87.6 Hypokalemia (principal); D69.3 Immune thrombocytopenic purpura

== ENCOUNTER 2017-07-10 20:15 | Inpatient (IN) | payer OTHER, MEDICARE ==
[~2017-07-10] VITALS: Ht 170.2 cm; Wt 73.4 kg
[~2017-07-10 20:15] MED LIST changes: -BLACK PEPPER PO; -CHOL100027 PO; -IVER1CRE TOP; -MOME0.1O3 TOP; -NZRCR TOP; -PRVHFAIN INH; -SNG10 PO; -SYN50 PO; -SYN75 PO; -UBIDECARENONE PO; -VGFVS/24 PV; -XRL20 PO
[2017-07-10] MEDS ORDERED: SODIUM CHLORIDE 0.9% 1000ML 1,000 ML IV STA (21:06)
[2017-07-10 21:29] LABS: BASO % 0.5 %; BASO ABS # 0.03 K/uL (0-0.2); EOS % 0.3 %; EOS ABS # 0.02 K/uL (0-0.5); HEMATOCRIT 36.3 % (37-47); LYMPH % 14.7 %; LYMPH ABS # 0.88 K/uL (1.2-3.4); MEAN CELL VOLUME 86.4 fL (80-100); MEAN CORPUSCULAR HEMOGLOBIN 28.6 pg (25-34); MEAN CORPUSCULAR HGB CONC 33.1 g/dl (32-36); MEAN PLATELET VOLUME 9.6 fL (7.4-10.4); MONO % 10.4 %; MONO ABS # 0.62 K/uL (0.11-0.59); NEUT % 74.1 %; NEUT ABS # 4.44 K/uL (1.4-6.5); PLATELET COUNT 215 K/uL (130-400); RED CELL DISTRIBUTION WIDTH CV 15.1 % (11.5-14.5); RED CELL DISTRIBUTION WIDTH SD 47.8 fL (36.4-46.3); WHITE BLOOD COUNT 5.99 K/uL (4.8-10.8)
[2017-07-10] MEDS ORDERED: CEFTRIAXONE SOD INJ 1 GM in DEXTROSE 5% ADD-VANTAGE 50ML 50 ML IV STA (21:33)
--- NOTE | 2017-07-10 21:33 | EMERGENCY ROOM VISIT NOTE ---
History Report prepared by Nico: Iris Chaparro Under the Supervision of: Dr. Trevor Wiggins M.D. First contact with patient: 20:53 Chief Complaint: REFERRED BY DOCTOR Stated Complaint: DR FERRARA REFERED. CHEST X RAY SHOWS PNEUMONIA History of Present Illness The patient is a 77 year old female who presents to the Emergency Room with complaints of persistent SOB starting 1.5 weeks ago. The patient was seen by her doctor today and sent to the ED after the chest X-ray found pneumonia. She has had pneumonia in the past. She has had a minor cough and chills. She has some soreness in her chest which worsens with breathing. She denies any fever. She has a history of irregular heartbeat. She is on Xarelto. She denies any history of PE. She had phlebitis after her 2nd son was born. She has a history of asthma. Source of History: patient Onset: 1.5 weeks ago Position: chest Quality: other (SOB) Timing: other (persistent) Associated Symptoms: + chills, + cough, + chest pain, No fevers Review of Systems See HPI for pertinent positives & negatives. A total of 10 systems reviewed and were otherwise negative. Past Medical & Surgical Medical Problems: (1) Asthma (2) Breast cancer (3) Hypertension (4) Positive ARTEMIO (antinuclear antibody) (5) Thrombocytopenia (6) Vaginal irritation Old medical records were reviewed. Nurse's notes were reviewed and I agree with. Family History Cancer Diabetes mellitus Heart disease Hypertension Lung disease Social History Smoking Status: Former Smoker Alcohol Use: none Marital Status: Occupation Status: retired Current/Historical Medications Scheduled Ydrpk-S-Ohsdiklowreme (Beano), 2 TABS PO DAILY Amlodipine Besylate (Norvasc), 2.5 MG PO DAILY Ascorbic Acid (Vitamin C), 250 MG PO DAILY Calcium Citrate-Vitamin D (Citracal + D3 Maximum), 1 TAB PO BID Cefdinir (Omnicef), 300 MG PO Q12H Cholecalciferol (Vitamin D 1000 Unit), 2,000 INTER.UNIT PO DAILY Ciclesonide (Alvesco), 1 PUFF INH DAILY Coenzyme Q10 (Ubidecarenone) (Coq10), 100 MG PO DAILY Estradiol (Vagifem), 10 MCG PV 3XWK Ivermectin (Rosacea) (Soolantra), 1 APPLN TOP DAILY Levothyroxine Sodium (Synthroid), 50 MCG PO Q2D Levothyroxine Sodium (Synthroid), 75 MCG PO Q2D Montelukast Sod (Montelukast Sodium), 10 MG PO HS Multiple Vitamins W/ Minerals (Centrum Silver Adult 50+), 1 TAB PO Q2D Pantoprazole Sodium (Protonix), 40 MG PO BID Probiotic Product (Probiotic), 1 CAP PO DAILY Scheduled PRN Acetaminophen Tab (Tylenol), 325 MG PO Q6H PRN for Pain or Fever Albuterol (Ventolin Hfa), 2 PUFFS INH Q6H PRN for SOB/Wheezing Fexofenadine Hcl (Estee Allergy), 180 MG PO DAILY PRN for Allergy Symptoms Polyethylene Glycol 3350 (Miralax), 17 GM PO BID PRN for Constipation Saline (Saline Nasal [place]), 1 SPRAY NA QID PRN for Nasal Dryness Allergies Coded Allergies: Sulfa Drugs (Verified Allergy, Intermediate, HIVES, 07/10/17) Atropine (Unverified Allergy, Mild, pain & diarrhea, 07/10/17) Diphenoxylate (Unverified Allergy, Mild, pain & diarrhea, 07/10/17) Moxifloxacin (Unverified Allergy, Mild, pain & diarrhea, 07/10/17) Amoxicillin (Unverified Allergy, Unknown, GI SYMPTOMS, 07/10/17) Cat Dander (Verified Allergy, Unknown, ALLERGIES, 07/10/17) Ciprofloxacin (Unverified Allergy, Unknown, GI SYMPTOMS, 07/10/17) Clavulanic Acid (Unverified Allergy, Unknown, GI SYMPTOMS, 07/10/17) [place] Tree (Verified Allergy, Unknown, ALLERGIES, 07/10/17) Desloratadine (Verified Allergy, Unknown, UNK, 07/10/17) Dust (Verified Allergy, Unknown, ALLERGIES, 07/10/17) Erythromycin (Unverified Allergy, Unknown, GI SYMPTOMS, 07/10/17) Macrolides (Verified Allergy, Unknown, 07/10/17) Metronidazole (Unverified Allergy, Unknown, GI SYMPTOMS, 07/10/17) Minocycline (Unverified Allergy, Unknown, GI SYMPTOMS, 07/10/17) Physical Exam Vital Signs Date Time Temp Pulse Resp B/P (MAP) Pulse Ox O2 Delivery O2 Flow Rate FiO2 07/10/17 22:51 78 18 135/77 96 Room Air 07/10/17 21:29 37.0 81 20 119/71 94 Room Air 07/10/17 20:48 81 07/10/17 20:45 94 Room Air 07/10/17 20:30 37.0 87 20 119/71 96 Room Air Physical Exam General: Non-ill appearing older female in no acute distress. HEENT: Normal cephalic atraumatic. Pupils are equal round and reactive to light. Extraocular movements are intact. Oropharynx is pink with moist mucous membranes. No swelling of the mouth lips or tongue. Neck: Supple with a midline trachea. No meningeal signs or stiffness, no JVD or bruits. No Stridor. Chest: Crackles in the base, mostly on the right. No increased work of breathing. Heart: regular rate and rhythm. Abdomen: Soft nontender, nondistended without rebound guarding or rigidity. Extremities: No cyanosis clubbing or edema. No calf tenderness or assymetry Spine/Back. Non tender to palpation. No CVA tenderness Skin: Good turgor without rashes. Neurologic exam: Cranial nerves two through 12 are intact. Motor and sensation are intact and symmetrical throughout. Medical Decision & Procedures Laboratory Results 07/10/17 20:40 Red Blood Count 4.20, Mean Corpuscular Volume 86.4, Mean Corpuscular Hemoglobin 28.6, Mean Corpuscular Hemoglobin Concent 33.1, Mean Platelet Volume 9.6, Neutrophils (%) (Auto) 74.1, Lymphocytes (%) (Auto) 14.7, Monocytes (%) (Auto) 10.4, Eosinophils (%) (Auto) 0.3, Basophils (%) (Auto) 0.5, Neutrophils # (Auto ) 4.44, Lymphocytes # (Auto) 0.88, Monocytes # (Auto) 0.62, Eosinophils # (Auto ) 0.02, Basophils # (Auto) 0.03 07/10/17 20:40 Test 07/10/17 20:40 07/10/17 21:07 White Blood Count 5.99 K/uL (4.8-10.8) Red Blood Count 4.20 M/uL (4.2-5.4) Hemoglobin 12.0 g/dL (12.0-16.0) Hematocrit 36.3 % (37-47) Mean Corpuscular Volume 86.4 fL (80-100) Mean Corpuscular Hemoglobin 28.6 pg (25-34) Mean Corpuscular Hemoglobin Concent 33.1 g/dl (32-36) Platelet Count 215 K/uL (130-400) Mean Platelet Volume 9.6 fL (7.4-10.4) Neutrophils (%) (Auto) 74.1 % Lymphocytes (%) (Auto) 14.7 % Monocytes (%) (Auto) 10.4 % Eosinophils (%) (Auto) 0.3 % Basophils (%) (Auto) 0.5 % Neutrophils # (Auto) 4.44 K/uL (1.4-6.5) Lymphocytes # (Auto) 0.88 K/uL (1.2-3.4) Monocytes # (Auto) 0.62 K/uL (0.11-0.59) Eosinophils # (Auto) 0.02 K/uL (0-0.5) Basophils # (Auto) 0.03 K/uL (0-0.2) RDW Standard Deviation 47.8 fL (36.4-46.3) RDW Coefficient of Variation 15.1 % (11.5-14.5) Immature Granulocyte % (Auto) 0.0 % Immature Granulocyte # (Auto) 0.00 K/uL (0.00-0.02) Prothrombin Time 11.6 SECONDS (9.0-12.0) Prothromb Time International Ratio 1.1 (0.9-1.1) Activated Partial Thromboplast Time 28.4 SECONDS (21.0-31.0) Partial Thromboplastin Ratio 1.1 Anion Gap 7.0 mmol/L (3-11) Est Creatinine Clear Calc Drug Dose 60.7 ml/min Estimated GFR () 90.8 Estimated GFR (Non- 78.3 BUN/Creatinine Ratio 24.5 (10-20) Calcium Level 8.7 mg/dl (8.5-10.1) Total Bilirubin 0.7 mg/dl (0.2-1) Aspartate Amino Transf (AST/SGOT) 16 U/L (15-37) Alanine Aminotransferase (ALT/SGPT) 19 U/L (12-78) Alkaline Phosphatase 107 U/L (45-117) Total Protein 7.2 gm/dl (6.4-8.2) Albumin 3.4 gm/dl (3.4-5.0) Globulin 3.8 gm/dl (2.5-4.0) Albumin/Globulin Ratio 0.9 (0.9-2) Bedside Lactic Acid Venous 1.24 mmol/L (0.90-1.70) Laboratory studies as stated above per my review. Medications Administered Medications (Trade) Dose Ordered Sig/Drew Route Start Time Stop Time Status Last Admin Dose Admin Sodium Chloride 1,000 ml @ 999 mls/hr Q1H1M STAT IV 07/10/17 21:06 07/10/17 22:06 DC 07/10/17 21:12 999 MLS/HR Ceftriaxone Sodium 1 gm/ Dextrose 50 ml @ 100 mls/hr ONE STAT IV 07/10/17 21:33 07/10/17 22:02 DC 07/10/17 21:44 100 MLS/HR ECG Per My Interpretation Indication: SOB/dyspnea Rate (beats per minute): 78 Rhythm: atrial flutter Findings: PVC (occasional), no acute ischemic change, other (variable block) Comparison ECG Date: 13-Mar-2017 Change: A flutter has replaced A fib. ED Course 2053: Past medical records reviewed. The patient was evaluated in room C7, and a complete history and physical examination were performed. 2105: Sodium Chloride 1000 ml @ 999 mls/hr IV. 2132: Ceftriaxone Sodium 1 gm/Dextrose 50 ml @ 100 mls/hr IV. 0: I discussed the patient's case with Dr. Lagunas, [facility] [place] hospitalist. The patient will be evaluated for further management. 5: Upon reevaluation, the patient is resting comfortably. I discussed the results and treatment plan with the patient. She verbalized agreement of the treatment plan. The patient will be evaluated for further management. Medical Decision Differentials include, but are not limited to; pneumonia, cardiac disease, arrhythmia, electrolyte or metabolic abnormality, PE. This patient comes in as described above. She was sent over for admission by her furniture removalist, Dr. Ferrara. She had an outpatient x-ray which showed infiltrates in the bases bilaterally. IV access established, blood work was obtained including blood cultures. She does have a history of asthma. She has been having trouble breathing for about a week. Her furniture removalist was also worried about aspiration apparently. I have reviewed her chest x-ray. EKG was obtained which shows atrial flutter without ischemic changes. she apparently has been on this chronically and is on anticoagulation for this. Multiple blood testing was obtained. She has no elevation of her lactic acid. She is non-hypoxemic. She has multiple antibiotic sensitivities or allergies. Most of them seem to be GI sensitivities to p.o. meds. She was seen earlier this year for pneumonia and did tolerate IV Rocephin and was given this. She has no elevation of her white count or lactic acid. She has no significant electrolyte or metabolic abnormalities. I did consult Dr. Lopez who saw her in the ER for admission/observation. Medication Reconcilliation Current Medication List: was personally reviewed by me Blood Pressure Screening Patient's blood pressure: Normal blood pressure Blood pressure disposition: Did not require urgent referral Consults Time Called: 2214 Consulting Physician: Dr. Lagunas, [place] [facility] [place] hospitalist Returned Call: [phone] Discussed the patient's case. The patient will be evaluated for further management. Impression Primary Impression: Pneumonia Scribe Attestation The scribe's documentation has been prepared under my direction and personally reviewed by me in its entirety. I confirm that the note above accurately reflects all work, treatment, procedures, and medical decision making performed by me. Departure Information Dispostion Being Evaluated By Hospitalist Referrals Luis Daniel Flores M.D. (PCP) Patient Instructions My [facility]
[2017-07-10 21:38] LABS: ALBUMIN 3.4 gm/dl (3.4-5.0); CALCIUM 8.7 mg/dl (8.5-10.1); CREATININE 0.73 mg/dl (0.60-1.20); POTASSIUM 3.3 mmol/L (3.5-5.1)
[2017-07-10 21:40] LABS: TOTAL PROTEIN 7.2 gm/dl (6.4-8.2)
[2017-07-10] MEDS ORDERED: CEFTRIAXONE SOD INJ 1 GM ADDVIAL ONE (21:40)
[2017-07-10 21:47] LABS: INR 1.1 (0.9-1.1); PTT PATIENT 28.4 SECONDS (21.0-31.0)
[2017-07-10] MEDS ORDERED: VGFVS/24 PV (22:06)
[2017-07-10] MEDS ORDERED: SNG10 PO (22:06)
[2017-07-10] MEDS ORDERED: IVER1CRE TOP (22:06)
[2017-07-10] MEDS ORDERED: SYN50 PO (22:06)
[2017-07-10] MEDS ORDERED: SYN75 PO (22:06)
[2017-07-10] MEDS ORDERED: PRVHFAIN INH (22:23)
[2017-07-10] MEDS ORDERED: CHOL100027 PO (22:23)
--- NOTE | 2017-07-10 23:02 | History and Physical ---
History & Physical Date & Time of Service: July 10, 2017 at 23:02 Chief Complaint: Dr Anderson Refered. Chest X Ray Shows Pneumonia Primary Care Physician: Luis Daniel Flores M.D. History of Present Illness Source: patient, clinic records, hospital records The patient is a 77-year-old female who presents to the emergency department after referral from her outpatient seamer panty hose Dr. Anderson, to whom she reported to today due to shortness of breath over the past 1-1/2 weeks, and had an outside chest x-ray performed suggesting pneumonia. Other significant history is the patient is on Xarelto for atrial fibrillation. She is also known to have several medication allergies/sensitivities, including penicillins , fluoroquinolones, macrolides and tetracyclines. She does have a history of previous pneumonia. Past Medical/Surgical History Medical Problems: (1) Abdominal pain (2) Anxiety (3) Anxiety (4) Asthma (5) Breast cancer (6) Cyst of kidney, acquired (7) Facial contusion (8) Fall (9) Hematoma of arm (10) Hypertension (11) Pneumonia (12) Positive ARTEMIO (antinuclear antibody) (13) Renal cyst (14) Right knee injury (15) Thrombocytopenia (16) Vaginal irritation Family History Cancer Diabetes mellitus Heart disease Hypertension Lung disease Social History Smoking Status: Former Smoker Smokeless Tobacco Use: No Alcohol Use: none Drug Use: none Marital Status: Housing status: lives with family Occupational Status: retired Immunizations History of Influenza Vaccine: Yes History of Tetanus Vaccine?: UTD History of Pneumococcal: Yes History of Hepatitis B Vaccine: No Allergies Coded Allergies: Sulfa Drugs (Verified Allergy, Intermediate, HIVES, 07/10/17) Atropine (Unverified Allergy, Mild, pain & diarrhea, 07/10/17) Diphenoxylate (Unverified Allergy, Mild, pain & diarrhea, 07/10/17) Moxifloxacin (Unverified Allergy, Mild, pain & diarrhea, 07/10/17) Amoxicillin (Unverified Allergy, Unknown, GI SYMPTOMS, 07/10/17) Cat Dander (Verified Allergy, Unknown, ALLERGIES, 07/10/17) Ciprofloxacin (Unverified Allergy, Unknown, GI SYMPTOMS, 07/10/17) Clavulanic Acid (Unverified Allergy, Unknown, GI SYMPTOMS, 07/10/17) [place] Tree (Verified Allergy, Unknown, ALLERGIES, 07/10/17) Desloratadine (Verified Allergy, Unknown, UNK, 07/10/17) Dust (Verified Allergy, Unknown, ALLERGIES, 07/10/17) Erythromycin (Unverified Allergy, Unknown, GI SYMPTOMS, 07/10/17) Macrolides (Verified Allergy, Unknown, 07/10/17) Metronidazole (Unverified Allergy, Unknown, GI SYMPTOMS, 07/10/17) Minocycline (Unverified Allergy, Unknown, GI SYMPTOMS, 07/10/17) Home Medications Scheduled Acetaminophen Tab (Tylenol), 325 MG PO BID Mukmn-D-Fuvsvogmhzuwb (Beano), 2 TABS PO DAILY Amlodipine Besylate (Norvasc), 2.5 MG PO DAILY Ascorbic Acid (Vitamin C), 250 MG PO DAILY Calcium Citrate-Vitamin D (Citracal + D3 Maximum), 1 TAB PO BID Cholecalciferol (Vitamin D 1000 Unit), 2,000 INTER.UNIT PO DAILY Ciclesonide (Alvesco), 1 PUFF INH BID Estradiol (Vagifem), 10 MCG PV 3XWK Ivermectin (Rosacea) (Soolantra), 1 APPLN TOP DAILY Ketoconazole (Ketoconazole), 1 APPLN TOP BID Levothyroxine Sodium (Synthroid), 50 MCG PO Q2D Levothyroxine Sodium (Synthroid), 75 MCG PO Q2D Mometasone Furoate (Mometasone Furoate), 1 APPLN TOP UD Montelukast Sod (Montelukast Sodium), 10 MG PO HS Multiple Vitamins W/ Minerals (Centrum Silver Adult 50+), 1 TAB PO Q2D Pantoprazole Sodium (Protonix), 40 MG PO BID Probiotic Product (Probiotic), 1 CAP PO DAILY Rivaroxaban (Xarelto), 20 MG PO DAILY [Coq10/Black Pepper], 200 MG PO DAILY Scheduled PRN Acetaminophen Tab (Tylenol), 325 MG PO Q6H PRN for Pain or Fever Albuterol (Ventolin Hfa), 2 PUFFS INH Q6H PRN for SOB/Wheezing Fexofenadine Hcl (Estee Allergy), 180 MG PO DAILY PRN for Allergy Symptoms Polyethylene Glycol 3350 (Miralax), 17 GM PO BID PRN for Constipation Saline (Saline Nasal [place]), 1 SPRAY NA QID PRN for Nasal Dryness Review of Systems The patient denies cough, lower extremity swelling, sore throat, fevers, chills , sweats, nausea, vomiting, diarrhea , constipation, abdominal pain, pelvic pain, blood in urine or stool, dysuria, urinary frequency or urgency, lightheadedness, dizziness, headache, memory loss, loss of consciousness, imbalance, focal weakness, numbness or tingling in arms or legs, back or neck pain, or night sweats. The review of systems is otherwise negative other than for that already noted above, and at least 10 systems have been reviewed. Physical Exam Vital Signs Date Time Temp Pulse Resp B/P (MAP) Pulse Ox O2 Delivery O2 Flow Rate FiO2 07/10/17 22:51 78 18 135/77 96 Room Air 07/10/17 21:29 37.0 81 20 119/71 94 Room Air 07/10/17 20:48 81 07/10/17 20:45 94 Room Air 07/10/17 20:30 37.0 87 20 119/71 96 Room Air The patient is awake, alert and oriented 3, normocephalic and atraumatic, lying in bed and in no acute distress. HEENT--PERRL, EOMI, mucous membranes and oropharynx normal. Neck--supple. No JVD. No bruits. Thyroid normal, trachea midline, no adenopathy. Heart--normal S1 and S2. Premature beats. Lungs--clear bilaterally, no respiratory distress, no accessory muscle use. Abdomen--normal bowel sounds and soft. Nontender. Nondistended. Extremities--no cyanosis or clubbing. No edema. There are good distal pulses b/ l. Dermatologic--normal skin turgor, normal color, no abnormal lymph nodes. A few scattered ecchymoses. Neurologic--cranial nerves II through XII grossly intact. Rheumatologic--normal range of motion. Psychiatric--normal affect. Diagnostics Laboratory Results Results Past 24 Hours Test 07/10/17 20:40 07/10/17 21:07 Range/Units White Blood Count 5.99 4.8-10.8 K/uL Red Blood Count 4.20 4.2-5.4 M/uL Hemoglobin 12.0 12.0-16.0 g/dL Hematocrit 36.3 37-47 % Mean Corpuscular Volume 86.4 80-100 fL Mean Corpuscular Hemoglobin 28.6 25-34 pg Mean Corpuscular Hemoglobin Concent 33.1 32-36 g/dl Platelet Count 215 130-400 K/uL Mean Platelet Volume 9.6 7.4-10.4 fL Neutrophils (%) (Auto) 74.1 % Lymphocytes (%) (Auto) 14.7 % Monocytes (%) (Auto) 10.4 % Eosinophils (%) (Auto) 0.3 % Basophils (%) (Auto) 0.5 % Neutrophils # (Auto) 4.44 1.4-6.5 K/uL Lymphocytes # (Auto) 0.88 1.2-3.4 K/uL Monocytes # (Auto) 0.62 0.11-0.59 K/uL Eosinophils # (Auto) 0.02 0-0.5 K/uL Basophils # (Auto) 0.03 0-0.2 K/uL RDW Standard Deviation 47.8 36.4-46.3 fL RDW Coefficient of Variation 15.1 11.5-14.5 % Immature Granulocyte % (Auto) 0.0 % Immature Granulocyte # (Auto) 0.00 0.00-0.02 K/uL Prothrombin Time 11.6 9.0-12.0 SECONDS Prothromb Time International Ratio 1.1 0.9-1.1 Activated Partial Thromboplast Time 28.4 21.0-31.0 SECONDS Partial Thromboplastin Ratio 1.1 Sodium Level 140 136-145 mmol/L Potassium Level 3.3 3.5-5.1 mmol/L Chloride Level 106 98-107 mmol/L Carbon Dioxide Level 27 21-32 mmol/L Anion Gap 7.0 3-11 mmol/L Blood Urea Nitrogen 18 7-18 mg/dl Creatinine 0.73 0.60-1.20 mg/dl Est Creatinine Clear Calc Drug Dose 60.7 ml/min Estimated GFR () 90.8 Estimated GFR (Non- 78.3 BUN/Creatinine Ratio 24.5 10-20 Random Glucose 107 70-99 mg/dl Calcium Level 8.7 8.5-10.1 mg/dl Total Bilirubin 0.7 0.2-1 mg/dl Aspartate Amino Transf (AST/SGOT) 16 15-37 U/L Alanine Aminotransferase (ALT/SGPT) 19 12-78 U/L Alkaline Phosphatase 107 45-117 U/L Total Protein 7.2 6.4-8.2 gm/dl Albumin 3.4 3.4-5.0 gm/dl Globulin 3.8 2.5-4.0 gm/dl Albumin/Globulin Ratio 0.9 0.9-2 Bedside Lactic Acid Venous 1.24 0.90-1.70 mmol/L Microbiology Results 07/10/17 Blood Culture, Received Pending 07/10/17 Blood Culture, Received Pending Diagnostic Radiology Patient Name: NICK ROMERO Unit Number: [id number] Dictated: 07/10/171611 Transcribed: 07/10/171611 MS Printed Date/Time: [~ rep prt dt]/[~ rep prt tm] [~ rep ct labl] - [~ rep ct ivnm] [facility] [place] [address] Dictated: 07/10/171611 Transcribed: 07/10/171611 MS Printed Date/Time: [~ rep prt dt]/[~ rep prt tm] [~ rep ct labl] - [~ rep ct ivnm] [~ rep ct add3]] CHEST 2 VIEWS ROUTINE CLINICAL HISTORY: J45.909 Extrinsic [id number] dyspnea COMPARISON STUDY: 04/16/2017 FINDINGS: Mild stable cardiomegaly. Poorly defined parenchymal infiltrate left perihilar region. Parenchymal infiltrate right mid and lower lung. Pulmonary apices are clear. Emphysematous changes present. IMPRESSION: Bilateral parenchymal infiltrates. Baseline emphysematous change. The above report was generated using voice recognition software. It may contain grammatical, syntax or spelling errors. Electronically signed by: Hussain Cody M.D. 07/10/2017 4:13 PM Dictated Date/Time: 07/10/2017 4:12 PM The status of this report is Signed. Draft = Not yet reviewed or approved by Radiologist. Signed = Reviewed and approved by Radiologist. <AttendingPhy>Zachary Anderson, </AttendingPhy> <FamilyPhy></FamilyPhy> < PrimaryPhy>Luis Daniel Flores M.D.</PrimaryPhy> <UnitNumber>[id number]</UnitNumber > <VisitNumber>[id number]</VisitNumber> <PatientName>NICK ROMERO</ PatientName> <DateOfBirth>1940</DateOfBirth> <Location>[id number]</Location > <ServiceDate>07/10/17</ServiceDate> <MNE>ESINDI</MNE> <OrderingPhy>Zachary Anderson DO</OrderingPhy> <OrderingPhyMNE>f rep ord dr tan</OrderingPhyMNE> < DictatingPhyMNE>f rep dict dr tan</DictatingPhyMNE> <CCListMNE>f rep ct rahule</ CCListMNE> <AdmittingPhyMNE>f pt admit dr tan</AdmittingPhyMNE> <AttendingPhyMNE >f pt attend dr tan</AttendingPhyMNE> <ConsultingPhyMNE>f pt consult dr tan</ConsultingPhyMNE> <FamilyPhyMNE>f pt fam dr tan</FamilyPhyMNE> <OtherPhyMNE>f pt other dr tan</OtherPhyMNE> < PrimaryPhyMNE>f pt prim care dr tan</PrimaryPhyMNE> <ReferringPhyMNE>f pt referring dr tan</ReferringPhyMNE> EKG NICK ROMERO ID:[id number] 10-JUL-2017 20:41:12 [facility] Atrial fibrillation with premature ventricular or aberrantly conducted complexes Left axis deviation Anteroseptal infarct (cited on or before 10-JUL-2017) Abnormal ECG When compared with ECG of 13-MAR-2017 21:05, Nonspecific T wave abnormality no longer evident in Lateral leads 25mm/s 10mm/mV 150Hz 8.0 SP2 12SL 241 MIGUEL: 13 Referred by: Unconfirmed Vent. rate 78 BPM NM interval * ms QRS duration 94 ms QT/QTc 400/456 ms P-R-T axes * -76 73 1940 (77 yr) Female Room: Loc:15 Petrol Tanker Driver:SHAZIA QUICK Test ind: My interpretation of EKG is that of atrial flutter with variable block at 78 bpm , left axis deviation, old anteroseptal infarct, there are no acute ST-T changes. Impression Assessment and Plan Bilateral pneumonia involving low both lower lobes, right greater than left/ asthma-- Considering multiple patient antibiotic allergies, will start patient on vancomycin IV and aztreonam IV. Guaifenesin 600 mg p.o. twice daily. Nasal cannula 2 L oxygen, titrate to keep pulse ox greater than or equal to 92%. Add Pulmicort Respules 0.5 mg inhaled twice daily. Avoid other nebulizers at this point due to heart rhythm and the patient is relatively comfortable. Increase probiotic to 4 tabs p.o with meals and at bedtime. Continue Singulair 10 mg p.o. daily. Consult her seamer panty hose Dr. Anderson History of atrial fibrillation/presently in atrial flutter with variable block-- Continue Xarelto 20 mg daily. Hold amlodipine 2.5 mg p.o. daily. Potassium presently 3.3. We will replace via IV fluids. And check a magnesium level Consult her industrial chemistry teacher Dr. Cantu Hypothyroidism-- Continue levothyroxine sodium 50 mcg alternating 75 mcg. Check a TSH level. GERD-- Continue pantoprazole 40 mg p.o. twice daily. Advanced Directives Existing Advance Directive: No Existing Living Will: No Existing Power of Fork Truck Driver: No Resuscitation Status VTE Prophylaxis Will order VTE Prophylaxis: Yes Social Service Consult None Apply
[2017-07-10] MEDS ORDERED: VANCOMYCIN IV 1,000 MG in SODIUM CHLORIDE 0.9% 250ML 250 ML IV STA (23:04)
[2017-07-10] MEDS ORDERED: ONDANSETRON INJ 2 MG/ML 2 ML VIAL IV PRN (23:15)
[2017-07-10] MEDS ORDERED: VANCOMYCIN CONSULT ACTIVE PRN (23:15)
[2017-07-10] MEDS ORDERED: MOME0.1O3 TOP (23:26)
[2017-07-10] MEDS ORDERED: XRL20 PO (23:26)
[2017-07-10] MEDS ORDERED: NZRCR TOP (23:26)
[2017-07-10] MEDS ORDERED: BLACK PEPPER PO (23:26)
[2017-07-10] MEDS ORDERED: ACET-1693 PO (23:26)
[2017-07-10] MEDS ORDERED: UBIDECARENONE PO (23:26)
[2017-07-10 23:30] VITALS: BP 151/84; PULSE 85; TEMP 36.7; O2SAT 93; Ht 170.2 cm; Wt 73.4 kg
[2017-07-10 23:59] VITALS: BP 135/78; PULSE 80; TEMP 36.8; O2SAT 96
[2017-07-11] VITALS (11 sets, daily range): BP systolic 128–154; BP diastolic 70–89; PULSE 71–85; TEMP 36.6–37.1; O2SAT 95–98
[2017-07-11] MEDS ORDERED: VANCOMYCIN IV 1,500 MG in SODIUM CHLORIDE 0.9% 500ML 500 ML IV SCH ×2
[2017-07-11] MEDS ORDERED: FEXOFENADINE HCL 180 MG TAB PO PRN (03:30)
[2017-07-11] MEDS ORDERED: POLYETHYLENE (MIRALAX) 17 GM PACK PO PRN (03:30)
[2017-07-11] MEDS ORDERED: SODIUM CHLORIDE 0.65% NA SOLN 45 ML (OCEAN) PRN (03:30)
[2017-07-11] MEDS: CEROVITE ADV FORMULA TAB PO SCH ×2 (03:30→05:58)
[2017-07-11] MEDS: AZTREONAM IV 1,000 MG in DEXTROSE 5% 100ML 100 ML IV SCH ×3 (03:33→18:18)
[2017-07-11] MEDS: ACETAMINOPHEN 325 MG TAB PO PRN (05:57)
[2017-07-11] MEDS: LEVOTHYROXINE 50 MCG TAB PO SCH (05:57)
[2017-07-11] MEDS: BUDESONIDE 0.5 MG/2 ML VIAL (PULMICORT) INH SCH ×2 (06:58→18:52)
[2017-07-11] MEDS: PANTOprazole SOD 40 MG TAB PO SCH ×2 (07:54→20:52)
[2017-07-11] MEDS: LACTOBACILLUS ACIDOPHILUS (FLORANEX) TAB PO SCH ×3 (07:54→18:18)
[2017-07-11] MEDS: GUAIFENESIN 600 MG TABCR PO SCH ×2 (07:54→20:52)
[2017-07-11] MEDS: ASCORBIC ACID 500 MG TAB PO SCH (07:54)
[2017-07-11] MEDS: CALCIUM 600MG + VIT D 400 IU TAB PO SCH ×2 (07:54→20:52)
[2017-07-11] MEDS: CHOLECALCIFEROL 1000 INTER.UNIT TAB PO SCH (07:55)
[2017-07-11] MEDS ORDERED: RIVAROXABAN 20 MG TAB PO SCH (09:00)
[2017-07-11] MEDS ORDERED: NON-FORMULARY MEDICATION (Alpha-D-Galactosidase (Beano) 2 TABS) PO SCH (09:00)
--- NOTE | 2017-07-11 09:48 | Pharmacy Progress Note ---
Pharmacy Abx Initial Consult Date of Service July 11, 2017. Pharmacy Dosing Scope Date of Consult: 07/11/17 Consultation requested by: Dr. Lagunas Pharmacy is consulted to initiate Vancomycin IV dosing therapy, order appropriate labs and adjust drug dose/frequency. Subjective The patient is a 77 year old female admitted on July 10, 2017 at 23:04. Objective Height (Feet): 5 Height (Inches): 7.00 Weight (Kilograms): 74.700 (BMI 25.8) Vital Signs (Past 12Hrs) Vital Signs Past 12 Hours Date Time Temp Pulse Resp B/P (MAP) Pulse Ox O2 Delivery O2 Flow Rate FiO2 07/11/17 08:00 95 Room Air 07/11/17 07:28 36.8 78 16 154/89 (110) 95 07/11/17 06:58 78 16 95 Room Air 07/11/17 04:00 Room Air 07/11/17 03:55 37.0 78 16 153/77 (102) 97 Room Air 07/11/17 03:25 36.6 80 18 128/82 (97) 98 Room Air 07/10/17 23:59 36.8 80 18 135/78 (97) 96 Room Air 07/10/17 23:30 36.7 85 20 151/84 93 Room Air 07/10/17 22:51 78 18 135/77 96 Room Air 07/10/17 21:29 37.0 81 20 119/71 94 Room Air Lab Results (24Hrs) Laboratory Tests (24 Hours) Test 07/10/17 20:40 White Blood Count 5.99 K/uL (4.8-10.8) Red Blood Count 4.20 M/uL (4.2-5.4) Hemoglobin 12.0 g/dL (12.0-16.0) Hematocrit 36.3 % (37-47) L Mean Corpuscular Volume 86.4 fL (80-100) Mean Corpuscular Hemoglobin 28.6 pg (25-34) Mean Corpuscular Hemoglobin Concent 33.1 g/dl (32-36) Platelet Count 215 K/uL (130-400) Mean Platelet Volume 9.6 fL (7.4-10.4) Neutrophils (%) (Auto) 74.1 % Lymphocytes (%) (Auto) 14.7 % Monocytes (%) (Auto) 10.4 % Eosinophils (%) (Auto) 0.3 % Basophils (%) (Auto) 0.5 % Neutrophils # (Auto) 4.44 K/uL (1.4-6.5) Lymphocytes # (Auto) 0.88 K/uL (1.2-3.4) L Monocytes # (Auto) 0.62 K/uL (0.11-0.59) H Eosinophils # (Auto) 0.02 K/uL (0-0.5) Basophils # (Auto) 0.03 K/uL (0-0.2) Micro Results Date/Time Source Procedure Growth Status 07/10/17 20:57 Blood Blood Culture Pending Received 07/10/17 20:40 Blood Blood Culture Pending Received Assessment & Plan Assessment 77 year old female started on Vancomycin and Aztreonam for pneumonia. Patient has multiple drug allergies Plan Estimated p'kinetics: Uriel ~ 0.055 hr-1; T1/2 ~ 12 hr; Vd ~ 0.7 L/kg Vancomycin & Aztreonam for treatment of pneumonia Vancomycin IV * Loading dose: 1500 mg ~ (24 mg/kg) * Maintenance dose: 1000 mg IV ~ (16 mg/kg) every 12 hours * Goal trough level for indication : 15 to 20 mcg/mL * Trough level ordered for 07/12/17 @ 1130 Will also order MRSA nasal swab to see if deescalation is possible. Pharmacy will continue to follow and will adjust dose/frequency as necessary. Thank you.
--- NOTE | 2017-07-11 10:16 | PULMONARY CONSULTATION ---
DATE OF CONSULTATION: 07/11/2017 REASON FOR CONSULTATION: Pneumonia. HISTORY OF PRESENT ILLNESS: A 77-year-old white female, patient of Dr. Zachary Anderson and Dr. Luis Daniel Flores, was admitted through the Emergency Room last evening by Dr. Lagunas. Dr. Anderson have seen the patient earlier in the day and the patient over the past several weeks has complained of an atypical chest discomfort associated with "incomplete expansion of the lungs" and inability to get "air into her lungs." She just has not felt well. Admits to some dyspnea with exertion over this time period. She has been on Xarelto for paroxysmal atrial fibrillation and has been exquisitely sensitive from a GI standpoint to numerous antibiotics including penicillin, fluoroquinolones, macrolides, and tetracycline, although she tends to tolerate the intravenous antibiotic better. She does have a limited smoking history, perhaps 6 years of smoking less than a pack of cigarettes a day in the early . 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 She denies dysphagia or true postprandial symptomatology, i.e., coughing with signs of aspiration. She has a remote history in 1997 of being diagnosed with a right breast cancer and underwent a lumpectomy followed by irradiation to that field. She was evaluated by Dr. Morfin for thrombocytopenia in mid 2011 and it was perhaps felt to be from an autoimmune etiology. ITP was considered. Platelet count ranged from 150,000 to 185,000 and then dropped to 108,000 in September of 2011. She was mildly leukopenic, but not anemic at that time. Ultrasound of the liver and spleen showed a stable right hepatic lobe hemangioma and workup by Dr. Perez, a perinatal specialist in the past showed an ARTEMIO of 1:640 homogenous pattern, but further testing that included antiDNA, anti-Chowdary, anti-RNT, SSA, SSP, anticentromere, SCL 70 antibody and antihistone antibody and were all negative at that time. She was told she had pneumonia and needed to be admitted but came to the Emergency Room from Dr. Anderson's office. She has not been running a fever. Her sputum for the most part has been minimal; has an intermittent dry and nonproductive cough. No true pleuritic pain or hemoptysis has been noted. She has been on Alvesco b.i.d. along with a short acting beta agonist for asthma/COPD. Apparently last time she had a CAT scan with contrast. There was infiltration and a great deal of pain in the left upper arm and she is reticent to undergo CAT scanning where contrast is used. Apparently she saw Dr. Perez for chronic knee pain in the past. She has also been evaluated by urology in the past and a complex cyst involving the right kidney. No current symptoms are noted to that extent currently. She has had extensive allergy testing in the past. For details of past medical history, medications, family and social history, refer your current and past record. PAST MEDICAL HISTORY: Review of Dr. Anderson's note states the patient has been acutely ill or became acutely ill at [facility] 2017. She does have a history of extrinsic asthma/COPD and has symptoms of allergic rhinitis, reflux, and anxiety. She was on immunotherapy with allergy injections from 2001 to 2008. PHYSICAL EXAMINATION: GENERAL: Reveals a well-developed, well-nourished white female, in no respiratory distress. CURRENT VITAL SIGNS: Stable. Respirations were 16, blood pressure 130/82, 96% sats on room air, afebrile, heart rate 103 and irregular. SKIN: Without lesion. HEENT: Atraumatic, normocephalic, PERRLA, EOMI. Conjunctivae pale. Sclerae nonicteric. Fundi poorly visualized. NECK: Neck veins are not distended at 45 degrees. No obvious adenopathy in the supra or infraclavicular areas. LUNGS: Distant P and A, may be some fine rales, right posterior base. CARDIAC EXAM: Irregular regular rhythm. I do not appreciate an S3. ABDOMEN: Soft, scaphoid. No evidence for hepatosplenomegaly. EXTREMITIES: Trace pedal edema. No clubbing. Peripheral cyanosis. NEUROLOGICAL: Cranial nerves II-XII grossly intact. No lateralizing signs. OVERALL ASSESSMENT: A 77-year-old white female with mild chronic obstructive pulmonary disease/extrinsic asthma with significant allergic rhinitis symptoms with worsening and persistent respiratory symptoms that are hard to fully categorize. Chest x-ray clearly shows with now as appearing to be a chronic right basilar infiltrate that is quite vague perhaps also with a left perihilar infiltrate. It is more extensive than it was back in March of this year and was virtually absent a year ago. I do not appreciate any hilar or mediastinal adenopathy from the plain radiograph. At this point in time, I think the patient requires an additional workup. I have discussed with her CAT scanning of the chest with and without contrast. She has a significant fear of contrast because of a previous infiltration involving the left forearm and upper arm. I tried to reassure her that if contrast was to be given, the technicians are usually quite careful to make sure that the IV access is adequate for the contrast to be given, but certainly we do not have to do that to give contrast if she is loathe to receiving it. In addition, I have offered her bronchoscopic evaluation at this point because I think we need to see if there is any endobronchial etiology for these persistent infiltrates whether indeed chronic aspiration is playing a role here. It is somewhat coincidental that the right-sided infiltrate is on the side of the previous lumpectomy and breast irradiation, but that would be an unusual manifestation of radiation changes this many years later without having seen it back in the late or early 1999. In any event, this is atypical for a community acquired pneumonitis. The patient is currently on IV vancomycin and IV aztreonam given her multiple drug allergies. I will go back and discuss with her further workup and will follow along with you.Patient reports mild dysphagia when eating rice and isolated foodstuffs w post-prandial cough. She is adverse to stopping her xarelto for 3 days for bronchoscopic evaluation( due to Embolic risk for CVA-she was told we could bridge w lovenox to reduce the risk) Thank you very much for this consultation. Certainly, if she was to undergo bronchoscopic evaluation, we would have to hold her Xarelto for 3 days. MTDD
--- NOTE | 2017-07-11 11:02 | Cardiology Consultation ---
Cardiology Consultation Date of Consultation: July 11, 2017. Requesting Physician: Dr. Lagunas Attending Physician: Dr. Devine Reason for Consultation: Atrial flutter Pt evaluation today including: conversation w/ patient, physical exam, chart review, lab review, review of studies, review of inpatient medication list, conversation w/ attending History of Present Illness Ms. Malone is a 77-year-old female with a history of atrial fibrillation who was admitted yesterday in the setting of bilateral pneumonia. 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 She also noted a dry cough and nasal congestion. A chest x-ray was obtained which showed bilateral parenchymal infiltrates. She was subsequently referred to the hospital for further evaluation and treatment. She was ill with pneumonia in March of 2017, and she was also diagnosed with atrial fibrillation around that time. She has been asymptomatic with the arrhythmia, and she has not required rate control therapy. She has been treated with anticoagulation in the form of Xarelto 20 mg daily. The patient is currently resting comfortably in her room in 275. She denies shortness of breath. She always sleeps with the head of her bed elevated due to reflux symptoms. She denies PND. She has noted mild ankle edema over the last 2.5 months, but she denies any significant lower extremity edema currently. She notes soreness of her chest when palpating her chest wall but denies any anginal symptoms. She denies palpitations, syncope, or presyncope. She denies abnormal bleeding such as melena, hematochezia, or hematuria. She denies cerebrovascular symptoms. Review of symptoms: As noted in HPI. All other ROS are reviewed and otherwise negative at this time. Past Medical/Surgical History 1. Atrial fibrillation 2. Hypertension 3. Chronic venous insufficiency 4. Dyslipidemia 5. ITP 6. Asthma 7. GERD 8. Anxiety 9. Hypothyroidism 10. Allergic rhinitis 11. Appendectomy 12. Cholecystectomy 13. Tonsillectomy Family History Cancer Diabetes mellitus Heart disease Hypertension Lung disease Noncontributory given advanced age. Social History Smoking Status: Former Smoker History of Alcohol Use: No She quit smoking in the 1980s. She denies alcohol or illicit drug use. Allergies Coded Allergies: Sulfa Drugs (Verified Allergy, Intermediate, HIVES, 07/10/17) Atropine (Unverified Allergy, Mild, pain & diarrhea, 07/10/17) Diphenoxylate (Unverified Allergy, Mild, pain & diarrhea, 07/10/17) Moxifloxacin (Unverified Allergy, Mild, pain & diarrhea, 07/10/17) Amoxicillin (Unverified Allergy, Unknown, GI SYMPTOMS, 07/10/17) Cat Dander (Verified Allergy, Unknown, ALLERGIES, 07/10/17) Ciprofloxacin (Unverified Allergy, Unknown, GI SYMPTOMS, 07/10/17) Clavulanic Acid (Unverified Allergy, Unknown, GI SYMPTOMS, 07/10/17) [place] (Verified Allergy, Unknown, ALLERGIES, 07/10/17) Desloratadine (Verified Allergy, Unknown, UNK, 07/10/17) Dust (Verified Allergy, Unknown, ALLERGIES, 07/10/17) Erythromycin (Unverified Allergy, Unknown, GI SYMPTOMS, 07/10/17) Macrolides (Verified Allergy, Unknown, 07/10/17) Metronidazole (Unverified Allergy, Unknown, GI SYMPTOMS, 07/10/17) Minocycline (Unverified Allergy, Unknown, GI SYMPTOMS, 07/10/17) Medications Current Inpatient Medications Medications (Trade) Dose Ordered Sig/Drew Route Start Time Stop Time Status Last Admin Dose Admin Acetaminophen (Tylenol Tab) 650 mg Q4H PRN PO 07/10/17 23:15 08/09/17 23:14 07/11/17 05:57 650 MG Miscellaneous Information (Consult) 1 ea UD PRN N/A 07/10/17 23:15 08/09/17 23:14 Aztreonam 1000 mg/ Dextrose 110 ml @ 100 mls/hr Q8H IV 07/11/17 02:00 07/18/17 01:59 07/11/17 03:33 100 MLS/HR Budesonide (Pulmicort Respules 0.5MG/ 2ML Neb Soln) 0.5 mg BIDR INH 07/11/17 08:00 08/10/17 07:59 07/11/17 06:58 0.5 MG Ondansetron HCl (Zofran Inj) 4 mg Q6H PRN IV 07/10/17 23:15 08/09/17 23:14 Guaifenesin (Mucinex Contr Rel Tab) 600 mg Q12 PO 07/11/17 09:00 08/10/17 08:59 07/11/17 07:54 600 MG Lactobacillus Acidophilus (Floranex Tab) 4 tab TIDM PO 07/11/17 08:00 08/10/17 07:59 07/11/17 07:54 4 TAB Cholecalciferol (Vitamin D Tab) 2,000 inter.unit DAILY PO 07/11/17 09:00 08/10/17 08:59 07/11/17 07:55 2,000 INTER.UNIT Fexofenadine HCl (Estee Tab) 180 mg DAILY PRN PO 07/11/17 03:30 08/10/17 03:29 Levothyroxine Sodium (Synthroid Tab) 50 mcg Q2D@0630 PO 07/11/17 06:30 08/10/17 06:29 07/11/17 05:57 50 MCG Levothyroxine Sodium (Synthroid Tab) 75 mcg Q2D@0630 PO 07/12/17 06:30 08/11/17 06:29 Montelukast Sodium (Singulair Tab) 10 mg HS PO 07/11/17 21:00 08/10/17 20:59 Multivitamins/ Minerals (Multivitamin W/ Minerals Tab) 1 tab Q2D PO 07/11/17 03:30 08/10/17 03:29 Pantoprazole Sodium (Protonix Tab) 40 mg BID PO 07/11/17 09:00 08/10/17 08:59 07/11/17 07:54 40 MG Rivaroxaban (Xarelto Tab) 20 mg DAILY PO 07/11/17 09:00 08/10/17 08:59 07/11/17 07:55 20 MG Sodium Chloride ([place] Nasal [place]) 1 sprays QID PRN NA 07/11/17 03:30 08/10/17 03:29 07/11/17 05:55 1 SPRAYS Ascorbic Acid (Vitamin C Tab) 250 mg DAILY PO 07/11/17 09:00 08/10/17 08:59 07/11/17 07:54 250 MG Miscellaneous Information (Order Awaiting Action) 1 ea QS N/A 07/11/17 08:00 08/10/17 07:59 Miscellaneous Information (Order Awaiting Action) 1 ea QS N/A 07/11/17 08:00 08/10/17 07:59 Calcium/Vitamin D (Caltrate Plus Tab) 1 tab BID PO 07/11/17 09:00 08/10/17 08:59 07/11/17 07:54 1 TAB Polyethylene (Miralax Powder Packet) 17 gm BID PRN PO 07/11/17 03:30 08/10/17 03:29 07/11/17 06:08 17 GM Physical Exam Vital Signs Past 12 Hours Date Time Temp Pulse Resp B/P (MAP) Pulse Ox O2 Delivery O2 Flow Rate FiO2 07/11/17 08:00 95 Room Air 07/11/17 07:28 36.8 78 16 154/89 (110) 95 07/11/17 06:58 78 16 95 Room Air 07/11/17 04:00 Room Air 07/11/17 03:55 37.0 78 16 153/77 (102) 97 Room Air 07/11/17 03:25 36.6 80 18 128/82 (97) 98 Room Air 07/10/17 23:59 36.8 80 18 135/78 (97) 96 Room Air 07/10/17 23:30 36.7 85 20 151/84 93 Room Air 07/10/17 22:51 78 18 135/77 96 Room Air 07/10/17 21:29 37.0 81 20 119/71 94 Room Air Constitutional: Alert, oriented, in no acute distress HEENT: Head is atraumatic and normocephalic. EOMs intact. Sclera anicteric. Face is symmetric. No perioral cyanosis. Mucous membranes moist. Neck: Supple, no JVD Pulmonary: Normal respiratory effort, bibasilar crackles Cardiac: Irregularly irregular, normal S1 and S2, no gallops, no rubs, no murmurs Extremities: No significant lower extremity edema bilaterally. No clubbing or cyanosis. Pulses intact Abdomen: Normal bowel sounds, soft, non-tender, no abdominal mass palpated Skin: Normal skin color, turgor, and pigmentation, no rash, no skin lesions Neurological: Oriented to person, place, and time Data Laboratory Results: Last 24 Hours Test 07/10/17 20:40 07/10/17 21:07 07/11/17 03:44 White Blood Count 5.99 K/uL Red Blood Count 4.20 M/uL Hemoglobin 12.0 g/dL Hematocrit 36.3 % Mean Corpuscular Volume 86.4 fL Mean Corpuscular Hemoglobin 28.6 pg Mean Corpuscular Hemoglobin Concent 33.1 g/dl Platelet Count 215 K/uL Mean Platelet Volume 9.6 fL Neutrophils (%) (Auto) 74.1 % Lymphocytes (%) (Auto) 14.7 % Monocytes (%) (Auto) 10.4 % Eosinophils (%) (Auto) 0.3 % Basophils (%) (Auto) 0.5 % Neutrophils # (Auto) 4.44 K/uL Lymphocytes # (Auto) 0.88 K/uL Monocytes # (Auto) 0.62 K/uL Eosinophils # (Auto) 0.02 K/uL Basophils # (Auto) 0.03 K/uL RDW Standard Deviation 47.8 fL RDW Coefficient of Variation 15.1 % Immature Granulocyte % (Auto) 0.0 % Immature Granulocyte # (Auto) 0.00 K/uL Prothrombin Time 11.6 SECONDS Prothromb Time International Ratio 1.1 Activated Partial Thromboplast Time 28.4 SECONDS Partial Thromboplastin Ratio 1.1 Sodium Level 140 mmol/L Potassium Level 3.3 mmol/L Chloride Level 106 mmol/L Carbon Dioxide Level 27 mmol/L Anion Gap 7.0 mmol/L Blood Urea Nitrogen 18 mg/dl Creatinine 0.73 mg/dl Est Creatinine Clear Calc Drug Dose 60.7 ml/min Estimated GFR () 90.8 Estimated GFR (Non- 78.3 BUN/Creatinine Ratio 24.5 Random Glucose 107 mg/dl Calcium Level 8.7 mg/dl Total Bilirubin 0.7 mg/dl Aspartate Amino Transf (AST/SGOT) 16 U/L Alanine Aminotransferase (ALT/SGPT) 19 U/L Alkaline Phosphatase 107 U/L Total Protein 7.2 gm/dl Albumin 3.4 gm/dl Globulin 3.8 gm/dl Albumin/Globulin Ratio 0.9 Bedside Lactic Acid Venous 1.24 mmol/L Magnesium Level 1.9 mg/dl Thyroid Stimulating Hormone (TSH) 1.750 uIu/ml Echo 04/17/2017: Normal LV, wall motion and systolic function. EF 55-60%. Mild MR. Mild to moderately dilated left and right atrium. Mild TR. Normal RVSP. EKG: Atrial fibrillation with a PVC or aberrantly conducted complex. 78 bpm. Left axis deviation. Poor R wave progression. Telemetry reviewed: Atrial fibrillation with rates in the 70-80s. PVCs and couplets. 13 beat run of wide complex tachycardia which appears to be nonsustained ventricular tachycardia. Assessment & Plan ASSESSMENT/PLAN: 1. Atrial fibrillation: Her ECG was thought to possibly be atrial flutter, but upon further review, it does appear consistent with atrial fibrillation. Patient has been in persistent atrial fibrillation since at least March of 2017. She has been well rate controlled without the need for rate control therapy. She is asymptomatic with the arrhythmia. She is tolerating anticoagulation therapy with no bleeding complaints. Would continue her current dose of Xarelto for thromboembolic prophylaxis. 2. Nonsustained ventricular tachycardia: She had a 13 beat run of what appears to be nonsustained VT. She was asymptomatic with this. Her recent echocardiogram in April 2017 demonstrated normal LV size and systolic function. There is therefore no need for further evaluation in this regard. Would not institute beta blockade at this time as she may be more prone to bradycardia given her atrial fibrillation. 3. Hypertension: Her BP has been mildly elevated. Would resume her usual outpatient antihypertensive therapy with amlodipine 2.5 mg daily. Thank you for allowing us to see this patient in consultation. The patient was discussed with Dr. Devine as well as Dr. Sandhu.
--- NOTE | 2017-07-11 11:53 | DIAGNOSTIC IMAGING REPORT ---
CT OF THE CHEST WITHOUT IV CONTRAST CLINICAL HISTORY: Bronchopneumonia. COMPARISON STUDY: Chest radiograph July 10, 2017 and April 16, 2017. CT DOSE: 194.37 mGycm TECHNIQUE: Axial images of the chest were obtained without IV contrast. Images were reviewed in the axial, sagittal, and coronal planes. IV contrast was not administered for this examination. A dose lowering technique was utilized adhering to the principles of ALARA. FINDINGS: No enlarged axillary, mediastinal or hilar lymph nodes are present. The heart is moderately enlarged. There is no pericardial effusion. There is extensive coronary artery calcification. The central airways are patent. Multifocal consolidation with associated groundglass opacities noted, most pronounced within the right lower lobe and the lingula. No cavitation is present. There is no pneumothorax or pleural effusion. The central airways are patent. No suspicious osseous lesion is present. Upper abdomen is unremarkable this unenhanced study. Caliber of the thoracic aorta is normal. IMPRESSION: 1. Multifocal consolidation with adjacent groundglass opacity. No cavitation or pleural effusion. The findings suggest multifocal pneumonia. Less likely considerations include pulmonary hemorrhage, eosinophilic pneumonia and organizing pneumonia. Radiographic follow up to ensure resolution is recommended. 2. Moderate cardiomegaly and extensive coronary artery calcification. 3. No thoracic lymphadenopathy. Electronically signed by: Rickey Monae M.D. 07/11/2017 11:51 AM Dictated Date/Time: 07/11/2017 11:43 AM
[2017-07-11] MEDS: VANCOMYCIN IV 1,000 MG in SODIUM CHLORIDE 0.9% 250ML 250 ML IV SCH ×2 (12:07→23:36)
--- NOTE | 2017-07-11 12:32 | DIAGNOSTIC IMAGING REPORT ---
VIDEO SWALLOW CLINICAL HISTORY: dysphagia r/o Chronic Aspiration COMPARISON STUDY: Upper GI series November 21, 2016. Fluoroscopy time: 2 minutes. FINDINGS: Note is made of moderate esophageal dysmotility. No tracheal aspiration is identified with thin liquids, nectar thick liquids, pudding or crackers with paste. Swallowing mechanism was intact. IMPRESSION: 1. No tracheal aspiration. 2. Moderate esophageal dysmotility. 3. Full recommendations by speech pathology to follow. Electronically signed by: Rickey Monae M.D. 07/11/2017 12:31 PM Dictated Date/Time: 07/11/2017 12:30 PM
--- NOTE | 2017-07-11 13:57 | Hospitalist Progress Note ---
Hospitalist Progress Note Date of Service July 11, 2017. (Sydney Youngblood ., EDGAR) Subjective Pt evaluation today including: conversation w/ patient, physical exam, chart review, lab review, review of inpatient medication list Voiding: no voiding problems Ms. Malone continues to have some mild sob, mild cough with scant sputum production. She has some reproducible to palpation chest pain across the front of her chest. She has had nauseas on and off but is feeling well enough to eat. She has also had some intermittent diarrhea. ROS Constitutional: no chills, aches, sweats or fever Respiratory: see HPI Cardiac: see HPI GI: no abdominal pain, nausea, vomiting, diarrhea or constipation : no dysuria or hesitancy Extremities: no joint pain or weakness Skin: no rash All other systems reviewed and negative (Sydney Youngblood CRNP) Medications Medications Administered Medications (Trade) Dose Ordered Sig/Drew Route Start Time Stop Time Status Last Admin Dose Admin Sodium Chloride 1,000 ml @ 999 mls/hr Q1H1M STAT IV 07/10/17 21:06 07/10/17 22:06 DC 07/10/17 21:12 999 MLS/HR Ceftriaxone Sodium 1 gm/ Dextrose 50 ml @ 100 mls/hr ONE STAT IV 07/10/17 21:33 07/10/17 22:02 DC 07/10/17 21:44 100 MLS/HR Acetaminophen (Tylenol Tab) 650 mg Q4H PRN PO 07/10/17 23:15 08/09/17 23:14 07/11/17 05:57 650 MG Aztreonam 1000 mg/ Dextrose 110 ml @ 100 mls/hr Q8H IV 07/11/17 02:00 07/18/17 01:59 07/11/17 10:58 100 MLS/HR Budesonide (Pulmicort Respules 0.5MG/ 2ML Neb Soln) 0.5 mg BIDR INH 07/11/17 08:00 08/10/17 07:59 07/11/17 06:58 0.5 MG Guaifenesin (Mucinex Contr Rel Tab) 600 mg Q12 PO 07/11/17 09:00 08/10/17 08:59 07/11/17 07:54 600 MG Vancomycin HCl 1500 mg/Sodium Chloride 530 ml @ 200 mls/hr TODAY@0000 IV 07/11/17 00:00 07/11/17 02:38 DC 07/11/17 00:00 200 MLS/HR Lactobacillus Acidophilus (Floranex Tab) 4 tab TIDM PO 07/11/17 08:00 08/10/17 07:59 07/11/17 12:06 4 TAB Cholecalciferol (Vitamin D Tab) 2,000 inter.unit DAILY PO 07/11/17 09:00 08/10/17 08:59 07/11/17 07:55 2,000 INTER.UNIT Levothyroxine Sodium (Synthroid Tab) 50 mcg Q2D@0630 PO 07/11/17 06:30 08/10/17 06:29 07/11/17 05:57 50 MCG Pantoprazole Sodium (Protonix Tab) 40 mg BID PO 07/11/17 09:00 08/10/17 08:59 07/11/17 07:54 40 MG Rivaroxaban (Xarelto Tab) 20 mg DAILY PO 07/11/17 09:00 08/10/17 08:59 07/11/17 07:55 20 MG Sodium Chloride ([place] Nasal [place]) 1 sprays QID PRN NA 07/11/17 03:30 08/10/17 03:29 07/11/17 05:55 1 SPRAYS Ascorbic Acid (Vitamin C Tab) 250 mg DAILY PO 07/11/17 09:00 08/10/17 08:59 07/11/17 07:54 250 MG Calcium/Vitamin D (Caltrate Plus Tab) 1 tab BID PO 07/11/17 09:00 08/10/17 08:59 07/11/17 07:54 1 TAB Polyethylene (Miralax Powder Packet) 17 gm BID PRN PO 07/11/17 03:30 08/10/17 03:29 07/11/17 06:08 17 GM Vancomycin HCl 1000 mg/Sodium Chloride 270 ml @ 125 mls/hr Q12H IV 07/11/17 12:00 07/18/17 11:59 07/11/17 12:07 125 MLS/HR (Sydney Youngblood CRNP) Objective Vital Signs Date Time Temp Pulse Resp B/P (MAP) Pulse Ox O2 Delivery O2 Flow Rate FiO2 07/11/17 11:41 36.7 71 16 135/70 (91) 96 07/11/17 08:00 95 Room Air 07/11/17 07:28 36.8 78 16 154/89 (110) 95 07/11/17 06:58 78 16 95 Room Air 07/11/17 04:00 Room Air 07/11/17 03:55 37.0 78 16 153/77 (102) 97 Room Air 07/11/17 03:25 36.6 80 18 128/82 (97) 98 Room Air 07/10/17 23:59 36.8 80 18 135/78 (97) 96 Room Air 07/10/17 23:30 36.7 85 20 151/84 93 Room Air 07/10/17 22:51 78 18 135/77 96 Room Air 07/10/17 21:29 37.0 81 20 119/71 94 Room Air 07/10/17 20:48 81 07/10/17 20:45 94 Room Air 07/10/17 20:30 37.0 87 20 119/71 96 Room Air (Sydney Youngblood CRNP) Physical Exam Notes: General: no distress Eyes: normal inspection, PERLL Respiratory: chest non tender, clear to auscultation, diminished breath sounds, no respiratory distress, no accessory muscle use Cardiac: irregular rate and rhythm, no rub or gallop, no murmur, no edema, no jvd GI/: active bowel sounds, no abd pain or tenderness, soft, non distended Extremities: normal range of motion, normal strength, non tender Neuro/Psych: alert and oriented x 3, normal mood and affect Skin: normal color, dry (Sydney Youngblood CRNP) Laboratory Results Last 24 Hours Test 07/10/17 20:40 07/10/17 21:07 07/11/17 03:44 White Blood Count 5.99 K/uL Red Blood Count 4.20 M/uL Hemoglobin 12.0 g/dL Hematocrit 36.3 % Mean Corpuscular Volume 86.4 fL Mean Corpuscular Hemoglobin 28.6 pg Mean Corpuscular Hemoglobin Concent 33.1 g/dl Platelet Count 215 K/uL Mean Platelet Volume 9.6 fL Neutrophils (%) (Auto) 74.1 % Lymphocytes (%) (Auto) 14.7 % Monocytes (%) (Auto) 10.4 % Eosinophils (%) (Auto) 0.3 % Basophils (%) (Auto) 0.5 % Neutrophils # (Auto) 4.44 K/uL Lymphocytes # (Auto) 0.88 K/uL Monocytes # (Auto) 0.62 K/uL Eosinophils # (Auto) 0.02 K/uL Basophils # (Auto) 0.03 K/uL RDW Standard Deviation 47.8 fL RDW Coefficient of Variation 15.1 % Immature Granulocyte % (Auto) 0.0 % Immature Granulocyte # (Auto) 0.00 K/uL Prothrombin Time 11.6 SECONDS Prothromb Time International Ratio 1.1 Activated Partial Thromboplast Time 28.4 SECONDS Partial Thromboplastin Ratio 1.1 Sodium Level 140 mmol/L Potassium Level 3.3 mmol/L Chloride Level 106 mmol/L Carbon Dioxide Level 27 mmol/L Anion Gap 7.0 mmol/L Blood Urea Nitrogen 18 mg/dl Creatinine 0.73 mg/dl Est Creatinine Clear Calc Drug Dose 60.7 ml/min Estimated GFR () 90.8 Estimated GFR (Non- 78.3 BUN/Creatinine Ratio 24.5 Random Glucose 107 mg/dl Calcium Level 8.7 mg/dl Total Bilirubin 0.7 mg/dl Aspartate Amino Transf (AST/SGOT) 16 U/L Alanine Aminotransferase (ALT/SGPT) 19 U/L Alkaline Phosphatase 107 U/L Total Protein 7.2 gm/dl Albumin 3.4 gm/dl Globulin 3.8 gm/dl Albumin/Globulin Ratio 0.9 Bedside Lactic Acid Venous 1.24 mmol/L Magnesium Level 1.9 mg/dl Thyroid Stimulating Hormone (TSH) 1.750 uIu/ml (Sydney Youngblood, EDGAR) Assessment and Plan Ms. Malone is a 77 year old woman here for community acquired pneumonia. Bilateral community acquired multifocal pneumonia/asthma/COPD - CT without contrast today showing multifocal pneumonia - continue telemetry monitoring - patient did have 13 beat run of V tach over the night - continue IV vanc and aztreonam - patient has multiple antibiotic allergies, BC pending - Continue Guaifenesin, Pulmicort - Add Pulmicort Respules 0.5 mg inhaled twice daily, add Xopenex inhaler q6h prn - Continue Singulair 10 mg p.o. daily. - Consult her pulmonology - considering bronch - will need to hold Xeralto for three days if bronch is opted for per pulm note - Speech consult and video swallow - no apparent aspiration History of atrial fibrillation/presently in atrial flutter with variable block, htn-- - Continue Xarelto 20 mg daily. - amlodipine 2.5 mg p.o. held on admission - can restart today - bps stable Hypokalemia - replaced - prp am Hypothyroidism-- Continue levothyroxine sodium 50 mcg alternating 75 mcg. Check a TSH level. GERD-- Continue pantoprazole 40 mg p.o. twice daily. Diarrhea - C.diff pending Full code Xeralto, SCDs Continued [facility] stay due to: multiple IV medications needed Discharge planning: home (Sydney Youngblood ., EDGAR) IP COUNSEL Physician Supervision Note: I interviewed and examined the patient. Discussed with Sydney Youngblood IP COUNSEL and agree with findings and plan as documented in the note. Any exceptions or clarifications are listed here: None Patient is a direct admitted for multifocal pneumonia she does have some esophageal dysmotility seen in video swallow but no lucila aspiration. CT scan does also confirm this multifocal pneumonia she has multiple drug allergies is currently on vancomycin and aztreonam as oversight by pulmonary medicine. She is a history of atrial fibrillation to have a short run of V. tach but cardiology did see the patient is not concerned that further evaluation needs to be undertaken regarding this She is currently comfortable she is slightly fatigued she sleeps poorly in the hospital temperature 36 8 pulse 70 respiration 16 BP 1 454/89 her cardiac exam is regular lungs have coarse breath sounds in all lung waller no focal air loss or wheezes. She has a nonproductive cough during my visit her cardiac exam sounds to be irregular with no murmurs Multifocal pneumonia with concern for gram-negative or atypical like she is also on vancomycin with concern for healthcare associated pneumonia subsequently she will have atypical coverage attempted to be added with azithromycin and with pulmonary medicine following up to consider if the patient needs further diagnostic testing continuing her rate control but holding her anticoagulation for the possibility of bronchoscopy in the future I did speak on the answering machine to her son dog at area code [phone] with message left for him Documented By: Ángel Anderson (Ángel Anderson M.D.)
[2017-07-11] MEDS ORDERED: LEValbuterol HFA 15GM INHALER INH PRN (14:00)
[2017-07-11] MEDS: MONTELUKAST SOD 10 MG TAB PO SCH (20:53)
[2017-07-12] VITALS (10 sets, daily range): BP systolic 143–164; BP diastolic 72–98; PULSE 60–93; TEMP 36.2–37.1; O2SAT 91–97
[2017-07-12] MEDS: AZTREONAM IV 1,000 MG in DEXTROSE 5% 100ML 100 ML IV SCH ×2 (02:10→10:27)
[2017-07-12] MEDS: ACETAMINOPHEN 325 MG TAB PO PRN (04:58)
[2017-07-12] MEDS: LEVOTHYROXINE 75 MCG TAB PO SCH (06:21)
[2017-07-12] MEDS: BUDESONIDE 0.5 MG/2 ML VIAL (PULMICORT) INH SCH ×2 (06:55→18:56)
[2017-07-12 07:20] LABS: BASO % 0.5 %; BASO ABS # 0.03 K/uL (0-0.2); EOS % 1.1 %; EOS ABS # 0.07 K/uL (0-0.5); HEMATOCRIT 37.2 % (37-47); HEMOGLOBIN 12.5 g/dL (12.0-16.0); IG# 0.01 K/uL (0.00-0.02); LYMPH % 21.3 %; MEAN CELL VOLUME 85.1 fL (80-100); MEAN CORPUSCULAR HEMOGLOBIN 28.6 pg (25-34); MEAN CORPUSCULAR HGB CONC 33.6 g/dl (32-36); MEAN PLATELET VOLUME 9.8 fL (7.4-10.4); MONO % 11.6 %; MONO ABS # 0.71 K/uL (0.11-0.59); NEUT % 65.3 %; NEUT ABS # 3.98 K/uL (1.4-6.5); PLATELET COUNT 211 K/uL (130-400); RED CELL DISTRIBUTION WIDTH CV 14.8 % (11.5-14.5); RED CELL DISTRIBUTION WIDTH SD 46.6 fL (36.4-46.3)
[2017-07-12 07:28] LABS: INR 1.1 (0.9-1.1); PTT PATIENT 28.7 SECONDS (21.0-31.0)
[2017-07-12 07:46] LABS: CALCIUM 8.7 mg/dl (8.5-10.1); CREATININE 0.67 mg/dl (0.60-1.20)
[2017-07-12] MEDS: FEXOFENADINE HCL 180 MG TAB PO SCH (08:13)
[2017-07-12] MEDS: AMLODIPINE BESYLATE 5 MG TAB PO SCH (08:14)
[2017-07-12] MEDS: CALCIUM 600MG + VIT D 400 IU TAB PO SCH ×2 (08:14→21:43)
[2017-07-12] MEDS: CHOLECALCIFEROL 1000 INTER.UNIT TAB PO SCH (08:14)
[2017-07-12] MEDS: GUAIFENESIN 600 MG TABCR PO SCH ×2 (08:14→21:43)
[2017-07-12] MEDS: ASCORBIC ACID 500 MG TAB PO SCH (08:15)
[2017-07-12] MEDS: PANTOprazole SOD 40 MG TAB PO SCH ×2 (08:15→21:43)
[2017-07-12] MEDS: LACTOBACILLUS ACIDOPHILUS (FLORANEX) TAB PO SCH ×3 (08:16→17:42)
[2017-07-12] MEDS: SOOLANTRA 1% EXT SCH (08:22)
[2017-07-12] MEDS ORDERED: ENOXAPARIN 40 MG/0.4 ML SYR SQ SCH (09:00)
[2017-07-12] MEDS ORDERED: POTASSIUM CHLORIDE 20 MEQ TABCR PO ONE (09:15)
[2017-07-12] MEDS ORDERED: VANCOMYCIN TROUGH ONE (11:30)
[2017-07-12] MEDS: VANCOMYCIN IV 1,000 MG in SODIUM CHLORIDE 0.9% 250ML 250 ML IV SCH (12:01)
--- NOTE | 2017-07-12 12:25 | PULMONARY PROGRESS NOTE ---
DATE: 07/12/2017 Pulmonary medicine note. HISTORY OF PRESENT ILLNESS: A 77-year-old with a history of atrial fibrillation, was admitted after discussion with Dr. Anderson through the ER onto the hospitalist service because she had abnormal chest x-ray. Patient was afebrile at that time, but has noted several weeks of increased dyspnea and chest congestion and inability to take a deep breath. She does have a dry cough. No hemoptysis has been noted. On 03/2017, she was diagnosed with atrial fibrillation, was asymptomatic and had not required rate control therapy. She was started on Xarelto and is now on 20 mg daily. She has had no previous TIA or cerebrovascular accident. She does have a limited remote smoking history. Workup yesterday included a video swallow which showed moderate esophageal dysmotility, but no tracheal aspiration and chest CT was obtained without contrast showed multifocal consolidation with adjacent ground-glass opacity with no cavitation or pleural effusion. This suggested a multifocal pneumonia less likely, considerations include pulmonary hemorrhage, eosinophilic granuloma and organizing pneumonia, moderate cardiomegaly with extensive coronary artery calcification noted. No thoracic lymphadenopathy. Contrast was not given. The patient's white count is 6100, H&H 12.5 and 37.2 and no significant peripheral eosinophilia. PT, PTT within normal limits. Potassium 3.0. Patient is currently receiving IV vancomycin and IV aztreonam. She has a history of ALLERGIES TO PENICILLIN, SULFA, QUINOLONE in the form of MOXIFLOXACIN and CIPROFLOXACIN, ERYTHROMYCIN, MACROLIDES, METRONIDAZOLE, and MINOCYCLINE, MOST OF WHICH GIVES HER GI DISTRESS. OVERALL ASSESSMENT: A 77-year-old with a history of extrinsic asthma/mild chronic obstructive pulmonary disease with persistent infiltrates and areas of opacification and consolidation involving right lower lobe and lingula. While these findings appeared to have been present and looking at the abdominal/pelvic CT scan that was performed on 06/01/2015, they appeared more prominent and consolidated now. I suspect patient has been aspirating and now has more of an organized pneumonia. There is no sign of pulmonary hemorrhage clinically as patient has not exhibited any hemoptysis. Eosinophilic granuloma would be unusual to manifest at this age and without the presence of cystic or nodular lesions involving these infiltrative areas, neoplasm would be way down on the list. I do believe she should undergo bronchoscopic evaluation with and without transbronchial biopsy and would aim for Sunday. Her Xarelto will need to be held 3 days. While empirically she does not need to be bridged with Lovenox given the absence of previous TIA or a history of embolic phenomenon, this may reassure her that she will be left "uncovered" without anticoagulation "for a shorter period of time" by bridging with Lovenox. We will discuss with primary service. In addition, I would consider adding Cleocin to the regimen and may be helpful to involve infectious disease consultation with her management at this point in time.
--- NOTE | 2017-07-12 12:48 | Hospitalist Progress Note ---
Hospitalist Progress Note Date of Service July 12, 2017. (Katie Del Toro ., PA-C) Subjective Pt evaluation today including: conversation w/ patient, physical exam, lab review, review of studies, review of inpatient medication list Voiding: no voiding problems Patient ambulated from restroom to beside w/out difficulty. Feeling well. +cough w/out sputum production. No SOB. On RA. Eating and drinking OK. Pulmonary recommending bronchoscopy- leaning towards doing it but once to speak w/ cardiology about Xarelto. +diarrhea but improving. Patient denies any fever, chills, sweats, lightheadedness, dizziness, vision changes, CP, palpitations, edema, SOB, wheezing, abdominal pain, nausea, vomiting, urinary symptoms, melena, numbness/tingling, weakness, muscle/joint pain, anxiety/depression, active bleeding, or new skin discoloration/changes. (Katie Del Toro ., PA-C) Medications Current Inpatient Medications Medications (Trade) Dose Ordered Sig/Drew Route Start Time Stop Time Status Last Admin Dose Admin Acetaminophen (Tylenol Tab) 650 mg Q4H PRN PO 07/10/17 23:15 08/09/17 23:14 07/12/17 04:58 325 MG Miscellaneous Information (Consult) 1 ea UD PRN N/A 07/10/17 23:15 08/09/17 23:14 Aztreonam 1000 mg/ Dextrose 110 ml @ 100 mls/hr Q8H IV 07/11/17 02:00 07/18/17 01:59 07/12/17 10:27 100 MLS/HR Budesonide (Pulmicort Respules 0.5MG/ 2ML Neb Soln) 0.5 mg BIDR INH 07/11/17 08:00 08/10/17 07:59 07/12/17 06:55 0.5 MG Ondansetron HCl (Zofran Inj) 4 mg Q6H PRN IV 07/10/17 23:15 08/09/17 23:14 Guaifenesin (Mucinex Contr Rel Tab) 600 mg Q12 PO 07/11/17 09:00 08/10/17 08:59 07/12/17 08:14 600 MG Lactobacillus Acidophilus (Floranex Tab) 4 tab TIDM PO 07/11/17 08:00 08/10/17 07:59 07/12/17 12:01 4 TAB Cholecalciferol (Vitamin D Tab) 2,000 inter.unit DAILY PO 07/11/17 09:00 08/10/17 08:59 07/12/17 08:14 2,000 INTER.UNIT Levothyroxine Sodium (Synthroid Tab) 50 mcg Q2D@0630 PO 07/11/17 06:30 08/10/17 06:29 07/11/17 05:57 50 MCG Levothyroxine Sodium (Synthroid Tab) 75 mcg Q2D@0630 PO 07/12/17 06:30 08/11/17 06:29 07/12/17 06:21 75 MCG Montelukast Sodium (Singulair Tab) 10 mg HS PO 07/11/17 21:00 08/10/17 20:59 07/11/17 20:53 10 MG Multivitamins/ Minerals (Multivitamin W/ Minerals Tab) 1 tab Q2D PO 07/11/17 03:30 08/10/17 03:29 Pantoprazole Sodium (Protonix Tab) 40 mg BID PO 07/11/17 09:00 08/10/17 08:59 07/12/17 08:15 40 MG Sodium Chloride ([place] Nasal [place]) 1 sprays QID PRN NA 07/11/17 03:30 08/10/17 03:29 07/11/17 05:55 1 SPRAYS Ascorbic Acid (Vitamin C Tab) 250 mg DAILY PO 07/11/17 09:00 08/10/17 08:59 07/12/17 08:15 250 MG Miscellaneous Information (Order Awaiting Action) 1 ea QS N/A 07/11/17 08:00 08/10/17 07:59 Calcium/Vitamin D (Caltrate Plus Tab) 1 tab BID PO 07/11/17 09:00 08/10/17 08:59 07/12/17 08:14 1 TAB Polyethylene (Miralax Powder Packet) 17 gm BID PRN PO 07/11/17 03:30 08/10/17 03:29 07/11/17 06:08 17 GM Vancomycin HCl 1000 mg/Sodium Chloride 270 ml @ 125 mls/hr Q12H IV 07/11/17 12:00 07/18/17 11:59 5/3/18 12:01 125 MLS/HR Levalbuterol (Xopenex Hfa Inhaler) 2 puffs QID PRN INH 07/11/17 14:00 08/10/17 13:59 Amlodipine Besylate (Norvasc Tab) 2.5 mg DAILY PO 07/12/17 09:00 08/11/17 08:59 07/12/17 08:14 2.5 MG Fexofenadine HCl (Estee Tab) 180 mg DAILY PO 07/12/17 09:00 08/10/17 03:29 07/12/17 08:13 180 MG Non-Formulary Medication (Non-Formulary Patient'S Own Med) 1 ea QAM EXT 07/12/17 09:00 08/11/17 08:59 07/12/17 08:22 1 EA (Katie Del Toro, PA-C) Objective Vital Signs Date Time Temp Pulse Resp B/P (MAP) Pulse Ox O2 Delivery O2 Flow Rate FiO2 07/12/17 11:19 36.5 60 18 149/77 (101) 96 Room Air 07/12/17 07:45 96 Room Air 07/12/17 07:28 36.2 85 18 159/98 (118) 96 Room Air 07/12/17 06:55 73 16 96 Room Air 07/12/17 04:31 36.7 93 20 149/72 (97) 91 Room Air 07/12/17 04:00 Room Air 07/12/17 00:00 Room Air 07/11/17 23:17 37.1 75 20 144/78 (100) 97 Room Air 07/11/17 20:00 Room Air 07/11/17 19:38 36.6 85 20 153/77 (102) 96 Room Air 07/11/17 18:54 77 16 97 Room Air 07/11/17 16:00 Room Air 07/11/17 15:23 36.7 78 20 136/73 (94) 95 (Katie Del Toro, PA-C) Physical Exam General Appearance: no apparent distress Eyes: normal inspection, PERRL ENT: hearing grossly normal Neck: supple Respiratory/Chest: lungs clear, no respiratory distress, no accessory muscle use, + decreased breath sounds (throughout) Cardiovascular: + irregularly irregular (rate controlled) Abdomen: normal bowel sounds, non tender, soft Extremities: no pedal edema, no calf tenderness Neurologic/Psychiatric: alert, normal mood/affect, oriented x 3 Skin: normal color, warm/dry, no rash (Katie Del Toro PA-C) Laboratory Results Last 24 Hours Test 07/12/17 07:04 07/12/17 11:57 White Blood Count 6.10 K/uL Red Blood Count 4.37 M/uL Hemoglobin 12.5 g/dL Hematocrit 37.2 % Mean Corpuscular Volume 85.1 fL Mean Corpuscular Hemoglobin 28.6 pg Mean Corpuscular Hemoglobin Concent 33.6 g/dl Platelet Count 211 K/uL Mean Platelet Volume 9.8 fL Neutrophils (%) (Auto) 65.3 % Lymphocytes (%) (Auto) 21.3 % Monocytes (%) (Auto) 11.6 % Eosinophils (%) (Auto) 1.1 % Basophils (%) (Auto) 0.5 % Neutrophils # (Auto) 3.98 K/uL Lymphocytes # (Auto) 1.30 K/uL Monocytes # (Auto) 0.71 K/uL Eosinophils # (Auto) 0.07 K/uL Basophils # (Auto) 0.03 K/uL RDW Standard Deviation 46.6 fL RDW Coefficient of Variation 14.8 % Immature Granulocyte % (Auto) 0.2 % Immature Granulocyte # (Auto) 0.01 K/uL Prothrombin Time 12.0 SECONDS Prothromb Time International Ratio 1.1 Activated Partial Thromboplast Time 28.7 SECONDS Partial Thromboplastin Ratio 1.1 Sodium Level 139 mmol/L Potassium Level 3.0 mmol/L Chloride Level 107 mmol/L Carbon Dioxide Level 26 mmol/L Anion Gap 6.0 mmol/L Blood Urea Nitrogen 12 mg/dl Creatinine 0.67 mg/dl Est Creatinine Clear Calc Drug Dose 66.2 ml/min Estimated GFR () 96.9 Estimated GFR (Non- 83.6 BUN/Creatinine Ratio 18.1 Random Glucose 95 mg/dl Calcium Level 8.7 mg/dl Magnesium Level 1.8 mg/dl (Katie Del Toro PA-C) Assessment and Plan Ms. Malone is a 77 year old woman here for community acquired pneumonia. Bilateral community-acquired multifocal PNA, asthma, COPD: - Admitted to [facility] for cardiac monitoring - CT w/out contrast- multifocal PNA - CT without contrast today showing multifocal pneumonia - Speech consulted- no evidence of aspiration on video swallow - IV Vancomycin + Aztreonam on admission due to allergies- discussed w/ pharmacy , will deescalate abx treatment to IV Rocephin today - BCx negative; MRSA swab negative - Continue Guaifenesin, Pulmicort 0.5 mg inhaled BID, Xopenex inhaler q6h PRN - Continue Singulair and Estee - Consult Pulmonary, appreciate recommendations- recommend bronchoscopy, Xarelto needs held x3 days- received on 07/11 h/o atrial fibrillation- rate controlled, HTN, NSVT: - Xarelto held as above - Continue Amlodipine 2.5 mg daily - Cardiology consulted, appreciate recommendations- continue current management , 13 beat-run of NSVT- no intervention at this time Hypokalemia- STABLE: Replace w/ PO KCL supplement, follow and replace PRN Hypothyroidism- TSH WNL: Continue Levothyroxine 50 mcg Q2D and 75 mcg Q2D Diarrhea: - C.diff- negative - Continue Probiotic GERD: Continue Pantoprazole 40 mg BID DVT prophylaxis: Ambulation; hold chemical anticoagulation due to possible upcoming bronch Code status: LEVEL I, FULL Dispo: From home- following Called and updated sonRajesh- # [phone] (Katie Del Toro ., PA-C) PA Physician Supervision Note: I Discussed with Katie GUERRA and agree with findings and plan as documented in the note. Any exceptions or clarifications are listed here: None Patient has multiple complaints about somatic effects of her antibiotics mostly with abnormal taste in her mouth etc. Patient is improving however not at a pace acceptable by pulmonary medicine and there is consideration for bronchoscopic evaluation her antibiotics were changed today which did prompt some of her more frequent somatic complaints vital signs are stable Patient is noted with multifocal pneumonia which is refractory to outpatient therapy antibiotics were amended today including clearance in an consideration of bronchoscopy on 07/13 Documented By: Ángel Anderson (Ángel Anderson M.D.)
--- NOTE | 2017-07-12 13:40 | PULMONARY PROGRESS NOTE ---
DATE: 07/12/2017 TIME OF VISIT: 1300. I reviewed the patient's case with Dr. King and will discuss with Dr. Anderson as well. I went back and I spoke with the patient. The patient has been on IV vancomycin and IV aztreonam, has numerous drug allergies or intolerances. I have added IV Cleocin 600 mg q.8 to the regimen to cover for acute on chronic aspiration and will also consider IV Solu-Medrol if patient continues to complain of dyspnea and inability to produce any significant amount of sputum. I think we can be conservative and continue our regimen and see if we see improvement in symptoms, and once discharged, to see if we see radiographic improvement as well. If not, then I would strongly consider a robotic VATS assisted biopsy or at least at a minimum fiberoptic bronchoscopy with transbronchial biopsy. I did speak with Dr. Devine who felt we could safely stop the Xarelto without bridging as patient remains at very-very low risk for embolic phenomenon given the absence of previous TIA or CVA from an embolic episode. We will hold the Xarelto, add the Cleocin and Solu-Medrol along with aerosolized bronchodilator, and reevaluate in the weekend. If there is clinical improvement, then I believe we can safely discharge her on oral medication, restart her Xarelto, and reevaluate as an outpatient.
[2017-07-12] MEDS: CLINDAMYCIN IV 600 MG in DEXTROSE 5% 50ML 50 ML IV SCH ×2 (14:20→21:43)
[2017-07-12] MEDS: CEFTRIAXONE SOD INJ 1 GM in DEXTROSE 5% ADD-VANTAGE 50ML 50 ML IV SCH (15:34)
[2017-07-12] MEDS ORDERED: COUGH DROP (SUGAR FREE) LOZ 24 LOZ/1 BOX LOZ PRN (18:00)
[2017-07-12] MEDS: METHYLPREDNISOLONE IV 40 MG in SYRINGE 0 ML IV SCH (21:15)
[2017-07-12] MEDS: MONTELUKAST SOD 10 MG TAB PO SCH (21:43)
[2017-07-13] VITALS (9 sets, daily range): BP systolic 135–165; BP diastolic 65–94; PULSE 76–98; TEMP 36.4–36.8; O2SAT 94–99
[2017-07-13] MEDS: ACETAMINOPHEN 325 MG TAB PO PRN ×2 (00:44→22:23)
[2017-07-13] MEDS: CEROVITE ADV FORMULA TAB PO SCH ×2 (03:30→07:17)
[2017-07-13 06:33] LABS: BASO % 0.2 %; BASO ABS # 0.01 K/uL (0-0.2); HEMATOCRIT 40.1 % (37-47); HEMOGLOBIN 13.7 g/dL (12.0-16.0); IG# 0.01 K/uL (0.00-0.02); LYMPH % 8.7 %; LYMPH ABS # 0.46 K/uL (1.2-3.4); MEAN CELL VOLUME 85.3 fL (80-100); MEAN CORPUSCULAR HEMOGLOBIN 29.1 pg (25-34); MEAN CORPUSCULAR HGB CONC 34.2 g/dl (32-36); MEAN PLATELET VOLUME 9.7 fL (7.4-10.4); MONO ABS # 0.05 K/uL (0.11-0.59); NEUT % 89.9 %; NEUT ABS # 4.73 K/uL (1.4-6.5); PLATELET COUNT 222 K/uL (130-400); RED CELL DISTRIBUTION WIDTH CV 14.7 % (11.5-14.5); RED CELL DISTRIBUTION WIDTH SD 46.1 fL (36.4-46.3); WHITE BLOOD COUNT 5.26 K/uL (4.8-10.8)
[2017-07-13] MEDS: CLINDAMYCIN IV 600 MG in DEXTROSE 5% 50ML 50 ML IV SCH ×3 (06:38→22:16)
[2017-07-13] MEDS: LEVOTHYROXINE 50 MCG TAB PO SCH (06:40)
[2017-07-13 07:05] LABS: CALCIUM 8.8 mg/dl (8.5-10.1); CREATININE 0.64 mg/dl (0.60-1.20); POTASSIUM 3.3 mmol/L (3.5-5.1)
[2017-07-13 07:11] LABS: INR 1.1 (0.9-1.1); PTT PATIENT 29.2 SECONDS (21.0-31.0)
[2017-07-13] MEDS: BUDESONIDE 0.5 MG/2 ML VIAL (PULMICORT) INH SCH ×2 (07:20→20:10)
[2017-07-13] MEDS ORDERED: POTASSIUM CHLORIDE 10 MEQ TABCR PO ONE (08:30)
[2017-07-13] MEDS: METHYLPREDNISOLONE IV 40 MG in SYRINGE 0 ML IV SCH ×2 (08:39→21:24)
[2017-07-13] MEDS: SOOLANTRA 1% EXT SCH (08:39)
[2017-07-13] MEDS: ASCORBIC ACID 500 MG TAB PO SCH (08:44)
[2017-07-13] MEDS: AMLODIPINE BESYLATE 5 MG TAB PO SCH (08:44)
[2017-07-13] MEDS: PANTOprazole SOD 40 MG TAB PO SCH ×2 (08:44→21:26)
[2017-07-13] MEDS: FEXOFENADINE HCL 180 MG TAB PO SCH (08:44)
[2017-07-13] MEDS: GUAIFENESIN 600 MG TABCR PO SCH ×2 (08:44→21:26)
[2017-07-13] MEDS: LACTOBACILLUS ACIDOPHILUS (FLORANEX) TAB PO SCH ×3 (08:44→17:10)
[2017-07-13] MEDS: CALCIUM 600MG + VIT D 400 IU TAB PO SCH ×2 (08:44→21:00)
[2017-07-13] MEDS: CHOLECALCIFEROL 1000 INTER.UNIT TAB PO SCH (08:45)
[2017-07-13] MEDS ORDERED: NURSING VERBAL MED ORDER ONE (10:45)
[2017-07-13] MEDS: KETOCONAZOLE 2% EXT SCH ×2 (11:51→21:23)
[2017-07-13] MEDS: MOMETASONE FUROATE 0.1% EXT SCH ×2 (11:51→21:24)
[2017-07-13] MEDS: ESTRADIOL PV SCH (11:52)
[2017-07-13] MEDS: [UNRECOGNIZED DRUG - OTHER] PV SCH (11:52)
--- NOTE | 2017-07-13 12:17 | CARDIOLOGY PROGRESS NOTE ---
DATE: 07/13/2017 SUBJECTIVE: Mrs. Malone is resting comfortably at the bedside without complaints of chest pain, dyspnea, or palpitations. OBJECTIVE: VITAL SIGNS: Blood pressure is 149/77 with an irregular pulse of 80. Respiratory rate is 18. The patient is afebrile at 36.7 degrees Celsius. Saturations 95% on room air. NECK: Supple with full carotid upstrokes. No obvious bruits. Jugular venous pressure is flat at 90 degrees. There is no thyromegaly. CARDIOVASCULAR: Reveals an irregular regular rhythm with distant heart sounds. No obvious murmurs. LUNGS: Clear without rales, rhonchi, or wheezes. ABDOMEN: Soft without bruits. EXTREMITIES: Reveal intact radial artery pulses bilaterally. Trace pretibial edema is noted. DATA: CBC notes hemoglobin 13.7, hematocrit 40.1, white count 5.26, platelet count 222,000. Electrolytes note a sodium of 141, potassium 3.3, chloride 108, bicarb 25, BUN 13, creatinine 0.64, glucose 147. EKG notes atrial fibrillation with a controlled ventricular response. There is left axis deviation along with an old anteroseptal myocardial infarction pattern. IMPRESSION AND PLAN: 1. Permanent atrial fibrillation - Xarelto currently on hold as she will have a bronchoscopy performed. No need for bridging therapy at this time. 2. Hypertension - controlled. 3. Hypercholesterolemia - continue statin. 4. Gastroesophageal reflux disease. 5. Chronic venous insufficiency.
--- NOTE | 2017-07-13 12:35 | Hospitalist Progress Note ---
Hospitalist Progress Note Date of Service July 13, 2017. (Sydney Youngblood, EDGAR) Subjective Pt evaluation today including: conversation w/ patient, physical exam, chart review, lab review, review of inpatient medication list Voiding: no voiding problems Ms. Malone is not feeling much improvement of her breathing symptoms. She is on room air, coughing occasionally. ROS Constitutional: no chills, aches, sweats or fever Respiratory: no sob,cough, sputum, or wheezing Cardiac: no chest pain, palpitations, edema, orthopnea or lightheadedness GI: no abdominal pain, nausea, vomiting, diarrhea or constipation : no dysuria or hesitancy Extremities: no joint pain or weakness Skin: no rash All other systems reviewed and negative (Sydney Youngblood CRNP) Medications Medications Administered Medications (Trade) Dose Ordered Sig/Drew Route Start Time Stop Time Status Last Admin Dose Admin Sodium Chloride 1,000 ml @ 999 mls/hr Q1H1M STAT IV 07/10/17 21:06 07/10/17 22:06 DC 07/10/17 21:12 999 MLS/HR Ceftriaxone Sodium 1 gm/ Dextrose 50 ml @ 100 mls/hr ONE STAT IV 07/10/17 21:33 07/10/17 22:02 DC 07/10/17 21:44 100 MLS/HR Acetaminophen (Tylenol Tab) 650 mg Q4H PRN PO 07/10/17 23:15 08/09/17 23:14 07/13/17 00:44 650 MG Aztreonam 1000 mg/ Dextrose 110 ml @ 100 mls/hr Q8H IV 07/11/17 02:00 07/12/17 12:45 DC 07/12/17 10:27 100 MLS/HR Budesonide (Pulmicort Respules 0.5MG/ 2ML Neb Soln) 0.5 mg BIDR INH 07/11/17 08:00 08/10/17 07:59 07/13/17 07:20 0.5 MG Guaifenesin (Mucinex Contr Rel Tab) 600 mg Q12 PO 07/11/17 09:00 08/10/17 08:59 07/13/17 08:44 600 MG Vancomycin HCl 1500 mg/Sodium Chloride 530 ml @ 200 mls/hr TODAY@0000 IV 07/11/17 00:00 07/11/17 02:38 DC 07/11/17 00:00 200 MLS/HR Lactobacillus Acidophilus (Floranex Tab) 4 tab TIDM PO 07/11/17 08:00 08/10/17 07:59 07/13/17 11:52 4 TAB Cholecalciferol (Vitamin D Tab) 2,000 inter.unit DAILY PO 07/11/17 09:00 08/10/17 08:59 07/13/17 08:45 2,000 INTER.UNIT Levothyroxine Sodium (Synthroid Tab) 50 mcg Q2D@0630 PO 07/11/17 06:30 08/10/17 06:29 07/13/17 06:40 50 MCG Levothyroxine Sodium (Synthroid Tab) 75 mcg Q2D@0630 PO 07/12/17 06:30 08/11/17 06:29 07/12/17 06:21 75 MCG Montelukast Sodium (Singulair Tab) 10 mg HS PO 07/11/17 21:00 08/10/17 20:59 07/12/17 21:43 10 MG Multivitamins/ Minerals (Multivitamin W/ Minerals Tab) 1 tab Q2D PO 07/11/17 03:30 08/10/17 03:29 07/13/17 07:17 1 TAB Pantoprazole Sodium (Protonix Tab) 40 mg BID PO 07/11/17 09:00 08/10/17 08:59 07/13/17 08:44 40 MG Rivaroxaban (Xarelto Tab) 20 mg DAILY PO 07/11/17 09:00 07/11/17 14:11 DC 07/11/17 07:55 20 MG Sodium Chloride ([place] Nasal [place]) 1 sprays QID PRN NA 07/11/17 03:30 08/10/17 03:29 07/11/17 05:55 1 SPRAYS Ascorbic Acid (Vitamin C Tab) 250 mg DAILY PO 07/11/17 09:00 08/10/17 08:59 07/13/17 08:44 250 MG Calcium/Vitamin D (Caltrate Plus Tab) 1 tab BID PO 07/11/17 09:00 08/10/17 08:59 07/13/17 08:44 1 TAB Polyethylene (Miralax Powder Packet) 17 gm BID PRN PO 07/11/17 03:30 08/10/17 03:29 07/11/17 06:08 17 GM Vancomycin HCl 1000 mg/Sodium Chloride 270 ml @ 125 mls/hr Q12H IV 07/11/17 12:00 07/12/17 12:45 DC 07/12/17 12:01 125 MLS/HR Amlodipine Besylate (Norvasc Tab) 2.5 mg DAILY PO 07/12/17 09:00 08/11/17 08:59 07/13/17 08:44 2.5 MG Fexofenadine HCl (Estee Tab) 180 mg DAILY PO 07/12/17 09:00 08/10/17 03:29 07/13/17 08:44 180 MG Non-Formulary Medication (Non-Formulary Patient'S Own Med) 1 ea QAM EXT 07/12/17 09:00 08/11/17 08:59 07/13/17 08:39 1 EA Potassium Chloride (Klor-Con Tab) 40 meq NOW ONCE PO 07/12/17 09:15 07/12/17 09:16 DC 07/12/17 10:01 40 MEQ Ceftriaxone Sodium 1 gm/ Dextrose 50 ml @ 100 mls/hr Q24H IV 07/12/17 16:00 07/19/17 15:59 07/12/17 15:34 100 MLS/HR Clindamycin Phosphate 600 mg/ Dextrose 54 ml @ 100 mls/hr Q8H IV 07/12/17 14:00 07/26/17 13:59 07/13/17 06:38 100 MLS/HR Methylprednisolone Sodium Succinate 40 mg/Syringe 0.64 ml @ 1.5 mls/min Q12 IV 07/12/17 21:00 08/11/17 20:59 07/13/17 08:39 1.5 MLS/MIN Potassium Chloride (Klor-Con M10) 40 meq NOW ONCE PO 07/13/17 08:30 07/13/17 08:35 DC 07/13/17 09:17 40 MEQ Ketoconazole (Nizoral 2% Crm) 1 appln BID EXT 07/13/17 12:00 07/23/17 11:59 07/13/17 11:51 1 APPLN Mometasone Furoate (Elocon 0.1% Oint) 1 appln BID EXT 07/13/17 12:00 08/12/17 11:59 07/13/17 11:51 1 APPLN Estradiol (Vagifem Vaginal Tab) 10 mcg MoWeFr@0900 PV 07/13/17 12:00 08/12/17 11:59 07/13/17 11:52 10 MCG (Sydney Youngblood CRNP) Objective Vital Signs Date Time Temp Pulse Resp B/P (MAP) Pulse Ox O2 Delivery O2 Flow Rate FiO2 07/13/17 11:20 36.7 90 18 149/77 (101) 95 Room Air 07/13/17 08:10 95 Room Air 07/13/17 07:30 36.6 81 17 148/91 (110) 95 Room Air 07/13/17 07:22 82 16 97 Room Air 07/13/17 04:31 36.8 98 18 165/94 (117) 94 Room Air 07/13/17 04:01 Room Air 07/13/17 00:05 Room Air 07/12/17 23:52 37.1 78 18 158/90 (112) 95 Room Air 07/12/17 20:14 36.5 84 18 164/83 (110) 93 Room Air 07/12/17 20:00 Room Air 07/12/17 18:58 70 16 97 Room Air 07/12/17 16:00 Room Air 07/12/17 15:34 37.0 88 18 143/82 (102) 97 Room Air (Sydney Youngblood CRNP) Physical Exam Notes: General: no distress Eyes: normal inspection, PERLL Respiratory: chest non tender, clear to auscultation, normal breath sounds, no respiratory distress, no accessory muscle use Cardiac: irregular rate and rhythm, no rub or gallop, no murmur, no edema, no jvd GI/: active bowel sounds, no abd pain or tenderness, soft, non distended Extremities: normal range of motion, normal strength, non tender Neuro/Psych: alert and oriented x 3, normal mood and affect Skin: normal color, dry (Sydney Youngblood CRNP) Laboratory Results Last 24 Hours Test 07/13/17 06:21 White Blood Count 5.26 K/uL Red Blood Count 4.70 M/uL Hemoglobin 13.7 g/dL Hematocrit 40.1 % Mean Corpuscular Volume 85.3 fL Mean Corpuscular Hemoglobin 29.1 pg Mean Corpuscular Hemoglobin Concent 34.2 g/dl Platelet Count 222 K/uL Mean Platelet Volume 9.7 fL Neutrophils (%) (Auto) 89.9 % Lymphocytes (%) (Auto) 8.7 % Monocytes (%) (Auto) 1.0 % Eosinophils (%) (Auto) 0.0 % Basophils (%) (Auto) 0.2 % Neutrophils # (Auto) 4.73 K/uL Lymphocytes # (Auto) 0.46 K/uL Monocytes # (Auto) 0.05 K/uL Eosinophils # (Auto) 0.00 K/uL Basophils # (Auto) 0.01 K/uL RDW Standard Deviation 46.1 fL RDW Coefficient of Variation 14.7 % Immature Granulocyte % (Auto) 0.2 % Immature Granulocyte # (Auto) 0.01 K/uL Prothrombin Time 11.7 SECONDS Prothromb Time International Ratio 1.1 Activated Partial Thromboplast Time 29.2 SECONDS Partial Thromboplastin Ratio 1.1 Sodium Level 141 mmol/L Potassium Level 3.3 mmol/L Chloride Level 108 mmol/L Carbon Dioxide Level 25 mmol/L Anion Gap 8.0 mmol/L Blood Urea Nitrogen 13 mg/dl Creatinine 0.64 mg/dl Est Creatinine Clear Calc Drug Dose 69.3 ml/min Estimated GFR () 98.4 Estimated GFR (Non- 84.9 BUN/Creatinine Ratio 20.0 Random Glucose 147 mg/dl Calcium Level 8.8 mg/dl Magnesium Level 1.8 mg/dl (Sydney Youngblood CRNP) Assessment and Plan Ms. Malone is a 77 year old woman here for community acquired pneumonia. Bilateral community acquired multifocal pneumonia/asthma/COPD - CT without contrast showing multifocal pneumonia - no events on telemetry overnight - initially on IV vanc and aztreonam - patient has multiple antibiotic allergies - changed to clindamycin and ceftriaxone per pulmonology - Continue Guaifenesin, Pulmicort, Xopenex inhaler q6h prn - Continue Singulair 10 mg p.o. daily. - Consult her pulmonology - considering bronch - will need to hold Xeralto for three days if bronch is opted for - at the moment pulm recommending continue Xeralto and see how patient does on abx - Speech consult and video swallow - no apparent aspiration History of atrial fibrillation/presently in atrial flutter with variable block, htn-- - Continue Xarelto 20 mg daily. - continue amlodipine 2.5 mg - bps stable Hypokalemia - replaced - prp am Hypothyroidism-- Continue levothyroxine sodium 50 mcg alternating 75 mcg. TSH wnl GERD-- Continue pantoprazole 40 mg p.o. twice daily. Diarrhea - C.diff negative Chronic vaginitis - continue home estradiol cream and mometasone cream Full code Xeralto, SCDs Transfer to med/surg (Sydney Youngblood ., EDGAR) [employer] Physician Supervision Note: I interviewed and examined the patient. Discussed with Sydney Youngblood [employer] and agree with findings and plan as documented in the note. Any exceptions or clarifications are listed here: None This patient is doing well the decision to proceed with bronchoscopy has been postponed we will continue with IV antibiotic therapy to see if she improves patient is markedly anxious about returning home at this time Vital signs show 36 6 pulse 81 respiration rate 17 BP 148/91 her lung exam is some coarse breath sounds but otherwise sounds fairly clear her heart is regular Multifocal pneumonia failing outpatient treatment patient continue intravenous antibiotics as directed by pulmonary medicine with no plans of bronchoscopy at this time continuing her chronic anticoagulation Documented By: Ángel Anderson (Ángel Anderson M.D.)
--- NOTE | 2017-07-13 13:20 | PULMONARY PROGRESS NOTE ---
DATE: 07/13/2017 SUBJECTIVE: The patient feels somewhat better. States that she is breathing slightly more easily, but still has a "tickle in the back of her throat", may be having some reflux symptoms. Tolerating medications without difficulty. Major complaint is that she is not getting enough sleep as her sleep is constantly interrupted "by people coming in and out of the room", no pleuritic pain or significant sputum production noted. PHYSICAL EXAMINATION: CURRENT VITAL SIGNS: Temperature 36.6, pulse 81 and regular, respiratory rate 17, blood pressure 148/91, O2 sat 95% on room air. SKIN: Warm and dry. HEENT: Atraumatic, normocephalic. PERRLA. LUNGS: Distant P and A. CARDIAC: Unchanged. ABDOMEN: Soft. EXTREMITIES: No pedal edema, clubbing or cyanosis. NEUROLOGIC: Intact. OVERALL ASSESSMENT: A 77-year-old with a history of extrinsic asthma with probable multifocal areas of acute and chronic aspiration pneumonia, currently on triple antibiotics including recent addition of IV Cleocin (numerous drug allergies and intolerances to oral antibiotic). I would continue the patient through the weekend on the current regimen(discontinuing the IV Vanco and IV Aztreonam this weekend )and slowly tapering the steroid therapy and would restart the patient's Xarelto. I do not anticipate an invasive procedure, i.e. bronchoscopy or even open lung biopsy at this point until the patient has had several weeks of oral antibiotic therapy with a slow steroid taper over 16 days that would also include her chronic maintenance inhaler and the use of a nebulizer with aerosolized bronchodilator. If followup chest x-ray or even CT scans continued to show the areas in question have not improved significantly or resolved, and they remains consolidation, then I would discuss with Dr. Anderson a more invasive workup. She will follow up with Dr. Anderson as an outpatient. CESAR
[2017-07-13] MEDS: CEFTRIAXONE SOD INJ 1 GM in DEXTROSE 5% ADD-VANTAGE 50ML 50 ML IV SCH (17:10)
[2017-07-13] MEDS: RIVAROXABAN 20 MG TAB PO SCH (17:38)
[2017-07-13] MEDS: MONTELUKAST SOD 10 MG TAB PO SCH (21:26)
[2017-07-14] VITALS (7 sets, daily range): BP systolic 105–151; BP diastolic 65–88; PULSE 65–88; TEMP 36.6–36.9; O2SAT 95–97
[2017-07-14] MEDS: LEVOTHYROXINE 75 MCG TAB PO SCH (06:17)
[2017-07-14] MEDS: CLINDAMYCIN IV 600 MG in DEXTROSE 5% 50ML 50 ML IV SCH ×3 (06:17→22:19)
[2017-07-14] MEDS: BUDESONIDE 0.5 MG/2 ML VIAL (PULMICORT) INH SCH ×2 (07:08→19:10)
[2017-07-14] MEDS: GUAIFENESIN 600 MG TABCR PO SCH ×2 (08:28→20:35)
[2017-07-14] MEDS: CHOLECALCIFEROL 1000 INTER.UNIT TAB PO SCH (08:28)
[2017-07-14] MEDS: PANTOprazole SOD 40 MG TAB PO SCH ×2 (08:28→20:34)
[2017-07-14] MEDS: METHYLPREDNISOLONE IV 40 MG in SYRINGE 0 ML IV SCH ×2 (08:28→20:35)
[2017-07-14] MEDS: ASCORBIC ACID 500 MG TAB PO SCH (08:29)
[2017-07-14] MEDS: FEXOFENADINE HCL 180 MG TAB PO SCH (08:29)
[2017-07-14] MEDS: CALCIUM 600MG + VIT D 400 IU TAB PO SCH ×2 (08:30→20:33)
[2017-07-14] MEDS: AMLODIPINE BESYLATE 5 MG TAB PO SCH (08:30)
[2017-07-14] MEDS: KETOCONAZOLE 2% EXT SCH ×2 (08:31→20:33)
[2017-07-14] MEDS: LACTOBACILLUS ACIDOPHILUS (FLORANEX) TAB PO SCH ×3 (08:31→17:12)
[2017-07-14] MEDS: SOOLANTRA 1% EXT SCH (08:32)
[2017-07-14] MEDS: MOMETASONE FUROATE 0.1% EXT SCH ×2 (08:32→20:33)
[2017-07-14 09:14] LABS: HEMATOCRIT 37.6 % (37-47); HEMOGLOBIN 12.6 g/dL (12.0-16.0); IG# 0.01 K/uL (0.00-0.02); LYMPH % 5.5 %; LYMPH ABS # 0.38 K/uL (1.2-3.4); MEAN CELL VOLUME 85.6 fL (80-100); MEAN CORPUSCULAR HEMOGLOBIN 28.7 pg (25-34); MEAN CORPUSCULAR HGB CONC 33.5 g/dl (32-36); MEAN PLATELET VOLUME 9.9 fL (7.4-10.4); MONO % 5.3 %; MONO ABS # 0.37 K/uL (0.11-0.59); NEUT % 89.1 %; NEUT ABS # 6.18 K/uL (1.4-6.5); PLATELET COUNT 263 K/uL (130-400); RED CELL DISTRIBUTION WIDTH CV 14.9 % (11.5-14.5); WHITE BLOOD COUNT 6.94 K/uL (4.8-10.8)
[2017-07-14 09:43] LABS: CALCIUM 9.1 mg/dl (8.5-10.1); CREATININE 0.66 mg/dl (0.60-1.20); POTASSIUM 3.6 mmol/L (3.5-5.1)
[2017-07-14] MEDS: RIVAROXABAN 20 MG TAB PO SCH (12:03)
--- NOTE | 2017-07-14 14:46 | Hospitalist Progress Note ---
Hospitalist Progress Note Date of Service July 14, 2017. Subjective Pt evaluation today including: conversation w/ patient, physical exam, chart review, lab review, review of inpatient medication list Voiding: no voiding problems Ms. Malone feels marginally better today than yesterday but is still sob. She feels like when she coughs she has something she needs to cough up but just can' t get it out. ROS Constitutional: no chills, aches, sweats or fever Respiratory: no sob,cough, sputum, or wheezing Cardiac: no chest pain, palpitations, edema, orthopnea or lightheadedness GI: no abdominal pain, nausea, vomiting, diarrhea or constipation : no dysuria or hesitancy Extremities: no joint pain or weakness Skin: no rash All other systems reviewed and negative Medications Medications Administered Medications (Trade) Dose Ordered Sig/Drew Route Start Time Stop Time Status Last Admin Dose Admin Sodium Chloride 1,000 ml @ 999 mls/hr Q1H1M STAT IV 07/10/17 21:06 07/10/17 22:06 DC 07/10/17 21:12 999 MLS/HR Ceftriaxone Sodium 1 gm/ Dextrose 50 ml @ 100 mls/hr ONE STAT IV 07/10/17 21:33 07/10/17 22:02 DC 07/10/17 21:44 100 MLS/HR Acetaminophen (Tylenol Tab) 650 mg Q4H PRN PO 07/10/17 23:15 08/09/17 23:14 07/13/17 22:23 650 MG Aztreonam 1000 mg/ Dextrose 110 ml @ 100 mls/hr Q8H IV 07/11/17 02:00 07/12/17 12:45 DC 07/12/17 10:27 100 MLS/HR Budesonide (Pulmicort Respules 0.5MG/ 2ML Neb Soln) 0.5 mg BIDR INH 07/11/17 08:00 08/10/17 07:59 07/14/17 07:08 0.5 MG Guaifenesin (Mucinex Contr Rel Tab) 600 mg Q12 PO 07/11/17 09:00 08/10/17 08:59 07/14/17 08:28 600 MG Vancomycin HCl 1500 mg/Sodium Chloride 530 ml @ 200 mls/hr TODAY@0000 IV 07/11/17 00:00 07/11/17 02:38 DC 07/11/17 00:00 200 MLS/HR Lactobacillus Acidophilus (Floranex Tab) 4 tab TIDM PO 07/11/17 08:00 08/10/17 07:59 07/14/17 12:03 4 TAB Cholecalciferol (Vitamin D Tab) 2,000 inter.unit DAILY PO 07/11/17 09:00 08/10/17 08:59 07/14/17 08:28 2,000 INTER.UNIT Levothyroxine Sodium (Synthroid Tab) 50 mcg Q2D@0630 PO 07/11/17 06:30 08/10/17 06:29 07/13/17 06:40 50 MCG Levothyroxine Sodium (Synthroid Tab) 75 mcg Q2D@0630 PO 07/12/17 06:30 08/11/17 06:29 07/14/17 06:17 75 MCG Montelukast Sodium (Singulair Tab) 10 mg HS PO 07/11/17 21:00 08/10/17 20:59 07/13/17 21:26 10 MG Multivitamins/ Minerals (Multivitamin W/ Minerals Tab) 1 tab Q2D PO 07/11/17 03:30 08/10/17 03:29 07/13/17 07:17 1 TAB Pantoprazole Sodium (Protonix Tab) 40 mg BID PO 07/11/17 09:00 08/10/17 08:59 07/14/17 08:28 40 MG Rivaroxaban (Xarelto Tab) 20 mg DAILY PO 07/11/17 09:00 07/11/17 14:11 DC 07/11/17 07:55 20 MG Sodium Chloride ([place] Nasal [place]) 1 sprays QID PRN NA 07/11/17 03:30 08/10/17 03:29 07/11/17 05:55 1 SPRAYS Ascorbic Acid (Vitamin C Tab) 250 mg DAILY PO 07/11/17 09:00 08/10/17 08:59 07/14/17 08:29 250 MG Calcium/Vitamin D (Caltrate Plus Tab) 1 tab BID PO 07/11/17 09:00 08/10/17 08:59 07/14/17 08:30 1 TAB Polyethylene (Miralax Powder Packet) 17 gm BID PRN PO 07/11/17 03:30 08/10/17 03:29 07/11/17 06:08 17 GM Vancomycin HCl 1000 mg/Sodium Chloride 270 ml @ 125 mls/hr Q12H IV 07/11/17 12:00 07/12/17 12:45 DC 07/12/17 12:01 125 MLS/HR Amlodipine Besylate (Norvasc Tab) 2.5 mg DAILY PO 07/12/17 09:00 08/11/17 08:59 07/14/17 08:30 2.5 MG Fexofenadine HCl (Estee Tab) 180 mg DAILY PO 07/12/17 09:00 08/10/17 03:29 07/14/17 08:29 180 MG Non-Formulary Medication (Non-Formulary Patient'S Own Med) 1 ea QAM EXT 07/12/17 09:00 08/11/17 08:59 07/14/17 08:32 1 EA Potassium Chloride (Klor-Con Tab) 40 meq NOW ONCE PO 07/12/17 09:15 07/12/17 09:16 DC 07/12/17 10:01 40 MEQ Ceftriaxone Sodium 1 gm/ Dextrose 50 ml @ 100 mls/hr Q24H IV 07/12/17 16:00 07/19/17 15:59 07/13/17 17:10 100 MLS/HR Clindamycin Phosphate 600 mg/ Dextrose 54 ml @ 100 mls/hr Q8H IV 07/12/17 14:00 07/26/17 13:59 07/14/17 06:17 100 MLS/HR Methylprednisolone Sodium Succinate 40 mg/Syringe 0.64 ml @ 1.5 mls/min Q12 IV 07/12/17 21:00 08/11/17 20:59 07/14/17 08:28 1.5 MLS/MIN Potassium Chloride (Klor-Con M10) 40 meq NOW ONCE PO 07/13/17 08:30 07/13/17 08:35 DC 07/13/17 09:17 40 MEQ Ketoconazole (Nizoral 2% Crm) 1 appln BID EXT 07/13/17 12:00 07/23/17 11:59 07/14/17 08:31 1 APPLN Mometasone Furoate (Elocon 0.1% Oint) 1 appln BID EXT 07/13/17 12:00 08/12/17 11:59 07/14/17 08:32 1 APPLN Estradiol (Vagifem Vaginal Tab) 10 mcg MoWeFr@0900 PV 07/13/17 12:00 08/12/17 11:59 07/13/17 11:52 10 MCG Rivaroxaban (Xarelto Tab) 20 mg DAILY@1800 PO 07/14/17 12:00 08/13/17 11:59 07/14/17 12:03 20 MG Objective Vital Signs Date Time Temp Pulse Resp B/P (MAP) Pulse Ox O2 Delivery O2 Flow Rate FiO2 07/14/17 08:00 Room Air 07/14/17 07:09 88 16 97 Room Air 07/14/17 07:08 36.7 68 18 151/70 (97) 95 Room Air 07/14/17 04:19 36.7 85 20 147/84 (105) 97 Room Air 07/14/17 00:04 Room Air 07/14/17 00:01 36.9 83 20 142/88 (106) 96 Room Air 07/13/17 20:10 91 16 97 Room Air 07/13/17 19:44 36.6 76 16 135/65 (88) 96 Room Air 07/13/17 16:03 95 Room Air 07/13/17 15:14 36.4 91 18 147/80 (102) 99 Room Air Physical Exam Notes: General: no distress Eyes: normal inspection, PERLL Respiratory: chest non tender, clear to auscultation, normal breath sounds, no respiratory distress, no accessory muscle use Cardiac: regular rate and rhythm, no rub or gallop, no murmur, no edema, no jvd GI/: active bowel sounds, no abd pain or tenderness, soft, non distended Extremities: normal range of motion, normal strength, non tender Neuro/Psych: alert and oriented x 3, normal mood and affect Skin: normal color, dry Laboratory Results Last 24 Hours Test 07/14/17 07:59 White Blood Count 6.94 K/uL Red Blood Count 4.39 M/uL Hemoglobin 12.6 g/dL Hematocrit 37.6 % Mean Corpuscular Volume 85.6 fL Mean Corpuscular Hemoglobin 28.7 pg Mean Corpuscular Hemoglobin Concent 33.5 g/dl Platelet Count 263 K/uL Mean Platelet Volume 9.9 fL Neutrophils (%) (Auto) 89.1 % Lymphocytes (%) (Auto) 5.5 % Monocytes (%) (Auto) 5.3 % Eosinophils (%) (Auto) 0.0 % Basophils (%) (Auto) 0.0 % Neutrophils # (Auto) 6.18 K/uL Lymphocytes # (Auto) 0.38 K/uL Monocytes # (Auto) 0.37 K/uL Eosinophils # (Auto) 0.00 K/uL Basophils # (Auto) 0.00 K/uL RDW Standard Deviation 46.0 fL RDW Coefficient of Variation 14.9 % Immature Granulocyte % (Auto) 0.1 % Immature Granulocyte # (Auto) 0.01 K/uL Sodium Level 140 mmol/L Potassium Level 3.6 mmol/L Chloride Level 109 mmol/L Carbon Dioxide Level 24 mmol/L Anion Gap 7.0 mmol/L Blood Urea Nitrogen 20 mg/dl Creatinine 0.66 mg/dl Est Creatinine Clear Calc Drug Dose 67.2 ml/min Estimated GFR () 97.4 Estimated GFR (Non- 84.0 BUN/Creatinine Ratio 30.3 Random Glucose 135 mg/dl Calcium Level 9.1 mg/dl Assessment and Plan Ms. Malone is a 77 year old woman here for community acquired pneumonia. Bilateral community acquired multifocal pneumonia/asthma/COPD - CT without contrast showing multifocal pneumonia - initially on IV vanc and aztreonam - patient has multiple antibiotic allergies - changed to clindamycin and ceftriaxone per pulmonology - Continue Guaifenesin, Pulmicort, Xopenex inhaler q6h prn - Continue Singulair 10 mg p.o. daily. - Consulted pulmonology - per their note, do not anticipate need for bronch - continue abx and steroids - they recommend 16 day taper - Speech consult and video swallow - no apparent aspiration History of atrial fibrillation/presently in atrial flutter with variable block, htn-- - Continue Xarelto 20 mg daily. - continue amlodipine 2.5 mg - bps stable Hypokalemia - replaced - prp am Hypothyroidism-- Continue levothyroxine sodium 50 mcg alternating 75 mcg. TSH wnl GERD-- Continue pantoprazole 40 mg p.o. twice daily. Diarrhea - C.diff negative Chronic vaginitis - continue home estradiol cream and mometasone cream Full code Xeralto, SCDs
--- NOTE | 2017-07-14 15:51 | Pulmonology Progress Note ---
Pulmonary Progress Note Date of Service July 14, 2017. Attending Dr. King Subjective Patient is able to sit up in bed with no signs of respiratory insufficiency during our conversation: She has noted acute changes no instability in her pulmonary function/status Objective Patient doing well sitting up in bed having long conversation on room air showing no signs of respiratory insufficiency: PmHx: Extrinsic asthma (allergy injections 2001 until 2008), allergic rhinitis , GERD, anxiety, atrial fibrillation/Xarelto, hypertension, hypercholesterolemia , chronic venous insufficiency Vital signs: Stable on room air Respiratory: Some inspiratory rhonchi/Velcro rales appreciated in the right lower lobe posterior subsegment Cardiac: S1-S2 no murmurs rubs or gallops appreciated, irregular rhythm Abdomen: Positive bowel sounds soft nontender Extremities: No clubbing cyanosis or edema Pulmonary Medications 1. Xarelto 20 mg daily 2. Methylprednisolone 40 mg q.12 hours 3. Ceftriaxone 1 g Q 24 hours 4. Clindamycin 600 mg q.8 hours 5. Estee 180 mg daily 6. Montelukast 10 mg daily 7. Xopenex HFA a 8. Mucinex 600 mg q.12 hours 9. Budesonide 0.5 mg b.i.d. Medication allergies: Augmentin, moxifloxacin, ciprofloxacin, erythromycin derivatives, Flagyl, minocycline Spirometry 03/28/2016: Mild obstructive ventilatory disease with an FEV1 of 77% Spirometry 10/07/2007: Mild obstructive ventilatory disease with an FEV1 of 79% Outpatient medications Estee 180 mg, [place] 160 mcg nebulized b.i.d., montelukast 10 mg, saline nasal spray, Protonix 40 mg, Ventolin HFA, Xarelto 20 mg daily, Xopenex HFA, Assessment & Plan 77-year-old female admitted for community-acquired pneumonia notably stabilizing and workup showing bilateral infiltrate versus mass process: 1. Pneumonia: This is a difficult patient is she has multiple allergy case and is notably responding well to current therapy. Per the IDSA/ATS standards patient will require minimum of 5 days of antibiotic therapy with a 48 hour window of no signs of pneumonia complication. At this time I suggest we continue the patient on a 7 day course of IV antibiotics as once again current recommendations for oral antibiotics are not feasible secondary to patient's allergies. 2. Asthma: Patient has a history of asthma. Looking back at her spirometry over the last decade there is no signs of notable obstructive ventilatory disease. I will move her steroids down to 40 mg oral prednisone starting 2017. 3. Pulmonary Masses: Patient does have large bilateral pulmonary infiltrates versus masses with normal looking mediastinum. After the patient's 7 day course of antibiotics if she is doing well as suggest we discharge in the follow -up with PET-CT imaging and then if required repeat high-resolution CT scan 6 weeks following 07/11/[address] imaging. Patient's Xarelto can be re-initiated. Data Medications: Current Inpatient Medications Medications (Trade) Dose Ordered Sig/Drew Route Start Time Stop Time Status Last Admin Dose Admin Acetaminophen (Tylenol Tab) 650 mg Q4H PRN PO 07/10/17 23:15 08/09/17 23:14 07/13/17 22:23 650 MG Budesonide (Pulmicort Respules 0.5MG/ 2ML Neb Soln) 0.5 mg BIDR INH 07/11/17 08:00 08/10/17 07:59 07/14/17 07:08 0.5 MG Ondansetron HCl (Zofran Inj) 4 mg Q6H PRN IV 07/10/17 23:15 08/09/17 23:14 Guaifenesin (Mucinex Contr Rel Tab) 600 mg Q12 PO 07/11/17 09:00 08/10/17 08:59 07/14/17 08:28 600 MG Lactobacillus Acidophilus (Floranex Tab) 4 tab TIDM PO 07/11/17 08:00 08/10/17 07:59 07/14/17 12:03 4 TAB Cholecalciferol (Vitamin D Tab) 2,000 inter.unit DAILY PO 07/11/17 09:00 08/10/17 08:59 07/14/17 08:28 2,000 INTER.UNIT Levothyroxine Sodium (Synthroid Tab) 50 mcg Q2D@0630 PO 07/11/17 06:30 08/10/17 06:29 07/13/17 06:40 50 MCG Levothyroxine Sodium (Synthroid Tab) 75 mcg Q2D@0630 PO 07/12/17 06:30 08/11/17 06:29 07/14/17 06:17 75 MCG Montelukast Sodium (Singulair Tab) 10 mg HS PO 07/11/17 21:00 08/10/17 20:59 07/13/17 21:26 10 MG Multivitamins/ Minerals (Multivitamin W/ Minerals Tab) 1 tab Q2D PO 07/11/17 03:30 08/10/17 03:29 07/13/17 07:17 1 TAB Pantoprazole Sodium (Protonix Tab) 40 mg BID PO 07/11/17 09:00 08/10/17 08:59 07/14/17 08:28 40 MG Sodium Chloride ([place] Nasal [place]) 1 sprays QID PRN NA 07/11/17 03:30 08/10/17 03:29 07/11/17 05:55 1 SPRAYS Ascorbic Acid (Vitamin C Tab) 250 mg DAILY PO 07/11/17 09:00 08/10/17 08:59 07/14/17 08:29 250 MG Calcium/Vitamin D (Caltrate Plus Tab) 1 tab BID PO 07/11/17 09:00 08/10/17 08:59 07/14/17 08:30 1 TAB Polyethylene (Miralax Powder Packet) 17 gm BID PRN PO 07/11/17 03:30 08/10/17 03:29 07/11/17 06:08 17 GM Levalbuterol (Xopenex Hfa Inhaler) 2 puffs QID PRN INH 07/11/17 14:00 08/10/17 13:59 Amlodipine Besylate (Norvasc Tab) 2.5 mg DAILY PO 07/12/17 09:00 08/11/17 08:59 07/14/17 08:30 2.5 MG Fexofenadine HCl (Estee Tab) 180 mg DAILY PO 07/12/17 09:00 08/10/17 03:29 07/14/17 08:29 180 MG Non-Formulary Medication (Non-Formulary Patient'S Own Med) 1 ea QAM EXT 07/12/17 09:00 08/11/17 08:59 07/14/17 08:32 1 EA Ceftriaxone Sodium 1 gm/ Dextrose 50 ml @ 100 mls/hr Q24H IV 07/12/17 16:00 07/19/17 15:59 07/13/17 17:10 100 MLS/HR Clindamycin Phosphate 600 mg/ Dextrose 54 ml @ 100 mls/hr Q8H IV 07/12/17 14:00 07/26/17 13:59 07/14/17 13:43 100 MLS/HR Methylprednisolone Sodium Succinate 40 mg/Syringe 0.64 ml @ 1.5 mls/min Q12 IV 07/12/17 21:00 08/11/17 20:59 07/14/17 08:28 1.5 MLS/MIN Menthol (Nice Jb) 1 jb Q1H PRN JB 07/12/17 18:00 08/11/17 17:59 Ketoconazole (Nizoral 2% Crm) 1 appln BID EXT 07/13/17 12:00 07/23/17 11:59 07/14/17 08:31 1 APPLN Mometasone Furoate (Elocon 0.1% Oint) 1 appln BID EXT 07/13/17 12:00 08/12/17 11:59 07/14/17 08:32 1 APPLN Estradiol (Vagifem Vaginal Tab) 10 mcg MoWeFr@0900 PV 07/13/17 12:00 08/12/17 11:59 07/13/17 11:52 10 MCG Rivaroxaban (Xarelto Tab) 20 mg DAILY@1800 PO 07/14/17 12:00 08/13/17 11:59 07/14/17 12:03 20 MG I & O: 24-Hour Column 07/15/17 08:00 Intake Total 384 ml Output Total 500 ml Balance -116 ml Vital Signs: Date Time Temp Pulse Resp B/P (MAP) Pulse Ox O2 Delivery O2 Flow Rate FiO2 07/14/17 14:48 36.8 76 18 105/65 (78) 96 Room Air 07/14/17 08:00 Room Air 07/14/17 07:09 88 16 97 Room Air 07/14/17 07:08 36.7 68 18 151/70 (97) 95 Room Air 07/14/17 04:19 36.7 85 20 147/84 (105) 97 Room Air 07/14/17 00:04 Room Air 07/14/17 00:01 36.9 83 20 142/88 (106) 96 Room Air 07/13/17 20:10 91 16 97 Room Air 07/13/17 19:44 36.6 76 16 135/65 (88) 96 Room Air 07/13/17 16:03 95 Room Air Laboratory Results: Last 24 Hours Test 07/14/17 07:59 White Blood Count 6.94 K/uL Red Blood Count 4.39 M/uL Hemoglobin 12.6 g/dL Hematocrit 37.6 % Mean Corpuscular Volume 85.6 fL Mean Corpuscular Hemoglobin 28.7 pg Mean Corpuscular Hemoglobin Concent 33.5 g/dl Platelet Count 263 K/uL Mean Platelet Volume 9.9 fL Neutrophils (%) (Auto) 89.1 % Lymphocytes (%) (Auto) 5.5 % Monocytes (%) (Auto) 5.3 % Eosinophils (%) (Auto) 0.0 % Basophils (%) (Auto) 0.0 % Neutrophils # (Auto) 6.18 K/uL Lymphocytes # (Auto) 0.38 K/uL Monocytes # (Auto) 0.37 K/uL Eosinophils # (Auto) 0.00 K/uL Basophils # (Auto) 0.00 K/uL RDW Standard Deviation 46.0 fL RDW Coefficient of Variation 14.9 % Immature Granulocyte % (Auto) 0.1 % Immature Granulocyte # (Auto) 0.01 K/uL Sodium Level 140 mmol/L Potassium Level 3.6 mmol/L Chloride Level 109 mmol/L Carbon Dioxide Level 24 mmol/L Anion Gap 7.0 mmol/L Blood Urea Nitrogen 20 mg/dl Creatinine 0.66 mg/dl Est Creatinine Clear Calc Drug Dose 67.2 ml/min Estimated GFR () 97.4 Estimated GFR (Non- 84.0 BUN/Creatinine Ratio 30.3 Random Glucose 135 mg/dl Calcium Level 9.1 mg/dl
[2017-07-14] MEDS: CEFTRIAXONE SOD INJ 1 GM in DEXTROSE 5% ADD-VANTAGE 50ML 50 ML IV SCH (15:59)
[2017-07-14] MEDS: MONTELUKAST SOD 10 MG TAB PO SCH (20:34)
[2017-07-15] VITALS (9 sets, daily range): BP systolic 133–159; BP diastolic 72–95; PULSE 55–104; TEMP 36.4–36.9; O2SAT 95–97
[2017-07-15] MEDS: ACETAMINOPHEN 325 MG TAB PO PRN ×2 (00:30→20:54)
[2017-07-15] MEDS: LEVOTHYROXINE 50 MCG TAB PO SCH (06:26)
[2017-07-15] MEDS: CEROVITE ADV FORMULA TAB PO SCH (06:26)
[2017-07-15] MEDS: CLINDAMYCIN IV 600 MG in DEXTROSE 5% 50ML 50 ML IV SCH ×3 (06:26→21:48)
[2017-07-15] MEDS: BUDESONIDE 0.5 MG/2 ML VIAL (PULMICORT) INH SCH ×2 (07:07→19:46)
[2017-07-15] MEDS: SOOLANTRA 1% EXT SCH (07:46)
[2017-07-15] MEDS: KETOCONAZOLE 2% EXT SCH ×2 (07:47→20:45)
[2017-07-15] MEDS: MOMETASONE FUROATE 0.1% EXT SCH ×2 (07:47→20:45)
[2017-07-15] MEDS: ESTRADIOL PV SCH (07:47)
[2017-07-15] MEDS: [UNRECOGNIZED DRUG - OTHER] PV SCH (07:47)
[2017-07-15] MEDS: CHOLECALCIFEROL 1000 INTER.UNIT TAB PO SCH (07:48)
[2017-07-15] MEDS: ASCORBIC ACID 500 MG TAB PO SCH (07:48)
[2017-07-15] MEDS: PANTOprazole SOD 40 MG TAB PO SCH ×2 (07:48→20:54)
[2017-07-15] MEDS: CALCIUM 600MG + VIT D 400 IU TAB PO SCH ×2 (07:49→20:56)
[2017-07-15] MEDS: FEXOFENADINE HCL 180 MG TAB PO SCH (07:50)
[2017-07-15] MEDS: GUAIFENESIN 600 MG TABCR PO SCH ×2 (07:50→20:55)
[2017-07-15] MEDS: LACTOBACILLUS ACIDOPHILUS (FLORANEX) TAB PO SCH ×3 (07:50→17:33)
[2017-07-15] MEDS: AMLODIPINE BESYLATE 5 MG TAB PO SCH (07:51)
--- NOTE | 2017-07-15 14:46 | Hospitalist Progress Note ---
Hospitalist Progress Note Date of Service July 15, 2017. Subjective Pt evaluation today including: conversation w/ patient, physical exam, chart review, lab review, review of inpatient medication list Voiding: no voiding problems Ms. Malone is slowly improving, she still has a cough that is not particularly productive. Her sob is improving. ROS Constitutional: no chills, aches, sweats or fever Respiratory: see HPI Cardiac: no chest pain, palpitations, edema, orthopnea or lightheadedness GI: no abdominal pain, nausea, vomiting, diarrhea or constipation : no dysuria or hesitancy Extremities: no joint pain or weakness Skin: no rash All other systems reviewed and negative Medications Medications Administered Medications (Trade) Dose Ordered Sig/Drew Route Start Time Stop Time Status Last Admin Dose Admin Sodium Chloride 1,000 ml @ 999 mls/hr Q1H1M STAT IV 07/10/17 21:06 07/10/17 22:06 DC 07/10/17 21:12 999 MLS/HR Ceftriaxone Sodium 1 gm/ Dextrose 50 ml @ 100 mls/hr ONE STAT IV 07/10/17 21:33 07/10/17 22:02 DC 07/10/17 21:44 100 MLS/HR Acetaminophen (Tylenol Tab) 650 mg Q4H PRN PO 07/10/17 23:15 08/09/17 23:14 07/15/17 00:30 325 MG Aztreonam 1000 mg/ Dextrose 110 ml @ 100 mls/hr Q8H IV 07/11/17 02:00 07/12/17 12:45 DC 07/12/17 10:27 100 MLS/HR Budesonide (Pulmicort Respules 0.5MG/ 2ML Neb Soln) 0.5 mg BIDR INH 07/11/17 08:00 08/10/17 07:59 07/15/17 07:07 0.5 MG Guaifenesin (Mucinex Contr Rel Tab) 600 mg Q12 PO 07/11/17 09:00 08/10/17 08:59 07/15/17 07:50 600 MG Vancomycin HCl 1500 mg/Sodium Chloride 530 ml @ 200 mls/hr TODAY@0000 IV 07/11/17 00:00 07/11/17 02:38 DC 07/11/17 00:00 200 MLS/HR Lactobacillus Acidophilus (Floranex Tab) 4 tab TIDM PO 07/11/17 08:00 08/10/17 07:59 07/15/17 12:00 4 TAB Cholecalciferol (Vitamin D Tab) 2,000 inter.unit DAILY PO 07/11/17 09:00 08/10/17 08:59 07/15/17 07:48 2,000 INTER.UNIT Levothyroxine Sodium (Synthroid Tab) 50 mcg Q2D@0630 PO 07/11/17 06:30 08/10/17 06:29 07/15/17 06:26 50 MCG Levothyroxine Sodium (Synthroid Tab) 75 mcg Q2D@0630 PO 07/12/17 06:30 08/11/17 06:29 07/14/17 06:17 75 MCG Montelukast Sodium (Singulair Tab) 10 mg HS PO 07/11/17 21:00 08/10/17 20:59 07/14/17 20:34 10 MG Multivitamins/ Minerals (Multivitamin W/ Minerals Tab) 1 tab Q2D PO 07/11/17 03:30 08/10/17 03:29 07/15/17 06:26 1 TAB Pantoprazole Sodium (Protonix Tab) 40 mg BID PO 07/11/17 09:00 08/10/17 08:59 07/15/17 07:48 40 MG Rivaroxaban (Xarelto Tab) 20 mg DAILY PO 07/11/17 09:00 07/11/17 14:11 DC 07/11/17 07:55 20 MG Sodium Chloride ([place] Nasal [place]) 1 sprays QID PRN NA 07/11/17 03:30 08/10/17 03:29 07/11/17 05:55 1 SPRAYS Ascorbic Acid (Vitamin C Tab) 250 mg DAILY PO 07/11/17 09:00 08/10/17 08:59 07/15/17 07:48 250 MG Calcium/Vitamin D (Caltrate Plus Tab) 1 tab BID PO 07/11/17 09:00 08/10/17 08:59 07/15/17 07:49 1 TAB Polyethylene (Miralax Powder Packet) 17 gm BID PRN PO 07/11/17 03:30 08/10/17 03:29 07/11/17 06:08 17 GM Vancomycin HCl 1000 mg/Sodium Chloride 270 ml @ 125 mls/hr Q12H IV 07/11/17 12:00 07/12/17 12:45 DC 07/12/17 12:01 125 MLS/HR Amlodipine Besylate (Norvasc Tab) 2.5 mg DAILY PO 07/12/17 09:00 08/11/17 08:59 07/15/17 07:51 2.5 MG Fexofenadine HCl (Estee Tab) 180 mg DAILY PO 07/12/17 09:00 08/10/17 03:29 07/15/17 07:50 180 MG Non-Formulary Medication (Non-Formulary Patient'S Own Med) 1 ea QAM EXT 07/12/17 09:00 08/11/17 08:59 07/15/17 07:46 1 EA Potassium Chloride (Klor-Con Tab) 40 meq NOW ONCE PO 07/12/17 09:15 07/12/17 09:16 DC 07/12/17 10:01 40 MEQ Ceftriaxone Sodium 1 gm/ Dextrose 50 ml @ 100 mls/hr Q24H IV 07/12/17 16:00 07/19/17 15:59 07/14/17 15:59 100 MLS/HR Clindamycin Phosphate 600 mg/ Dextrose 54 ml @ 100 mls/hr Q8H IV 07/12/17 14:00 07/26/17 13:59 07/15/17 13:47 100 MLS/HR Methylprednisolone Sodium Succinate 40 mg/Syringe 0.64 ml @ 1.5 mls/min Q12 IV 07/12/17 21:00 07/14/17 23:59 DC 07/14/17 20:35 1.5 MLS/MIN Potassium Chloride (Klor-Con M10) 40 meq NOW ONCE PO 07/13/17 08:30 07/13/17 08:35 DC 07/13/17 09:17 40 MEQ Ketoconazole (Nizoral 2% Crm) 1 appln BID EXT 07/13/17 12:00 07/23/17 11:59 07/15/17 07:47 1 APPLN Mometasone Furoate (Elocon 0.1% Oint) 1 appln BID EXT 07/13/17 12:00 08/12/17 11:59 07/15/17 07:47 1 APPLN Estradiol (Vagifem Vaginal Tab) 10 mcg MoWeFr@0900 PV 07/13/17 12:00 08/12/17 11:59 07/15/17 07:47 10 MCG Rivaroxaban (Xarelto Tab) 20 mg DAILY@1800 PO 07/14/17 12:00 08/13/17 11:59 07/14/17 12:03 20 MG Prednisone (PredniSONE TAB) 40 mg DAILY PO 07/15/17 09:00 08/14/17 08:59 07/15/17 07:49 40 MG Objective Vital Signs Date Time Temp Pulse Resp B/P (MAP) Pulse Ox O2 Delivery O2 Flow Rate FiO2 07/15/17 11:49 36.9 75 18 133/72 (92) 95 Room Air 07/15/17 08:00 Room Air 07/15/17 07:20 36.5 75 18 156/95 (115) 95 Room Air 07/15/17 07:07 55 16 96 Room Air 07/15/17 04:36 36.4 104 18 159/88 (111) 97 Room Air 07/15/17 00:32 36.6 76 18 155/80 (105) 95 Room Air 07/15/17 00:02 Room Air 07/14/17 19:27 36.6 74 18 147/80 (102) 95 Room Air 07/14/17 19:10 65 16 97 Room Air 07/14/17 16:00 Room Air 07/14/17 14:48 36.8 76 18 105/65 (78) 96 Room Air Physical Exam Notes: General: no distress Eyes: normal inspection, PERLL Respiratory: chest non tender, clear to auscultation, normal breath sounds, no respiratory distress, no accessory muscle use Cardiac: irregular rate and rhythm, no rub or gallop, no murmur, no edema, no jvd GI/: active bowel sounds, no abd pain or tenderness, soft, non distended Extremities: normal range of motion, normal strength, non tender Neuro/Psych: alert and oriented x 3, normal mood and affect Skin: normal color, dry Assessment and Plan Ms. Malone is a 77 year old woman here for community acquired pneumonia. Bilateral community acquired multifocal pneumonia/asthma/COPD - CT without contrast showing multifocal pneumonia - initially on IV vanc and aztreonam - patient has multiple antibiotic allergies - changed to clindamycin and ceftriaxone per pulmonology - tomorrow is 7 days of abx and can be discontinued after that point - Continue Guaifenesin, Pulmicort, Xopenex inhaler q6h prn - Continue Singulair 10 mg p.o. daily. - Consulted pulmonology - per their note, do not anticipate need for bronch - continue abx and steroids - decreased steroids to 40 mg prednisone - Speech consult and video swallow - no apparent aspiration History of atrial fibrillation/presently in atrial flutter with variable block, htn-- - Continue Xarelto 20 mg daily. - continue amlodipine 2.5 mg - bps stable Hypokalemia - replaced - prp am Hypothyroidism-- Continue levothyroxine sodium 50 mcg alternating 75 mcg. TSH wnl GERD-- Continue pantoprazole 40 mg p.o. twice daily. Diarrhea - C.diff negative Chronic vaginitis - continue home estradiol cream and mometasone cream Full code Xeralto, SCDs
[2017-07-15] MEDS: CEFTRIAXONE SOD INJ 1 GM in DEXTROSE 5% ADD-VANTAGE 50ML 50 ML IV SCH (15:49)
[2017-07-15] MEDS: RIVAROXABAN 20 MG TAB PO SCH (17:33)
--- NOTE | 2017-07-15 17:45 | Pulmonology Progress Note ---
Pulmonary Progress Note Date of Service July 15, 2017. Attending Dr. King Subjective Patient notes she is overall doing better today. She denies any acute changes in her respiratory status over the last 24 hours. Objective Patient is sitting up in bed easily moving throughout her bed with no signs of respiratory insufficiency: PmHx: Extrinsic asthma (allergy injections 2001 until 2008), allergic rhinitis , GERD, anxiety, atrial fibrillation/Xarelto, hypertension, hypercholesterolemia , chronic venous insufficiency Vital signs: Stable on room air Respiratory: Some inspiratory rhonchi/Velcro rales appreciated in the right lower lobe posterior subsegment Cardiac: S1-S2 no murmurs rubs or gallops appreciated, irregular rhythm Abdomen: Positive bowel sounds soft nontender Extremities: No clubbing cyanosis or edema Pulmonary Medications 1. Xarelto 20 mg daily 2. Prednisone 40 mg daily 3. Ceftriaxone 1 g Q 24 hours 4. Clindamycin 600 mg q.8 hours 5. Estee 180 mg daily 6. Montelukast 10 mg daily 7. Xopenex HFA a 8. Mucinex 600 mg q.12 hours 9. Budesonide 0.5 mg b.i.d. Medication allergies: Augmentin, moxifloxacin, ciprofloxacin, erythromycin derivatives, Flagyl, minocycline Spirometry 03/28/2016: Mild obstructive ventilatory disease with an FEV1 of 77% Spirometry 10/07/2007: Mild obstructive ventilatory disease with an FEV1 of 79% Outpatient medications Estee 180 mg, Alvesco 160 mcg nebulized b.i.d., montelukast 10 mg, saline nasal spray, Protonix 40 mg, Ventolin HFA, Xarelto 20 mg daily, Xopenex HFA, Assessment & Plan 77-year-old female admitted for community-acquired pneumonia notably stabilizing and workup showing bilateral infiltrate versus mass process: 1. Pneumonia: This is a difficult patient is she has multiple allergy case and is notably responding well to current therapy. Per the IDSA/ATS standards patient will require minimum of 5 days of antibiotic therapy with a 48 hour window of no signs of pneumonia complication. At this time I suggest we continue the patient on a 7 day course of IV antibiotics as once again current recommendations for oral antibiotics are not feasible secondary to patient's allergies. 2. Asthma: Patient has a history of asthma. Patient is doing well on oral prednisone at this time suggest we slowly taper over the next 10 days. 3. Pulmonary Masses: Patient does have large bilateral pulmonary infiltrates versus masses with normal looking mediastinum. After the patient's 7 day course of antibiotics if she is doing well as suggest we discharge in the follow -up with PET-CT imaging and then if required repeat high-resolution CT scan 6 weeks following 07/11/[address] imaging. Patient's Xarelto can be re-initiated. At this time pulmonary will follow up the patient can be seen by Dr. Zachary bates as an outpatient within the 2 weeks status post discharge. Data Medications: Current Inpatient Medications Medications (Trade) Dose Ordered Sig/Drew Route Start Time Stop Time Status Last Admin Dose Admin Acetaminophen (Tylenol Tab) 650 mg Q4H PRN PO 07/10/17 23:15 08/09/17 23:14 07/15/17 00:30 325 MG Budesonide (Pulmicort Respules 0.5MG/ 2ML Neb Soln) 0.5 mg BIDR INH 07/11/17 08:00 08/10/17 07:59 07/15/17 07:07 0.5 MG Ondansetron HCl (Zofran Inj) 4 mg Q6H PRN IV 07/10/17 23:15 08/09/17 23:14 Guaifenesin (Mucinex Contr Rel Tab) 600 mg Q12 PO 07/11/17 09:00 08/10/17 08:59 07/15/17 07:50 600 MG Lactobacillus Acidophilus (Floranex Tab) 4 tab TIDM PO 07/11/17 08:00 08/10/17 07:59 07/15/17 17:33 4 TAB Cholecalciferol (Vitamin D Tab) 2,000 inter.unit DAILY PO 07/11/17 09:00 08/10/17 08:59 07/15/17 07:48 2,000 INTER.UNIT Levothyroxine Sodium (Synthroid Tab) 50 mcg Q2D@0630 PO 07/11/17 06:30 08/10/17 06:29 07/15/17 06:26 50 MCG Levothyroxine Sodium (Synthroid Tab) 75 mcg Q2D@0630 PO 07/12/17 06:30 08/11/17 06:29 07/14/17 06:17 75 MCG Montelukast Sodium (Singulair Tab) 10 mg HS PO 07/11/17 21:00 08/10/17 20:59 07/14/17 20:34 10 MG Multivitamins/ Minerals (Multivitamin W/ Minerals Tab) 1 tab Q2D PO 07/11/17 03:30 08/10/17 03:29 07/15/17 06:26 1 TAB Pantoprazole Sodium (Protonix Tab) 40 mg BID PO 07/11/17 09:00 08/10/17 08:59 07/15/17 07:48 40 MG Sodium Chloride ([place] Nasal [place]) 1 sprays QID PRN NA 07/11/17 03:30 08/10/17 03:29 07/11/17 05:55 1 SPRAYS Ascorbic Acid (Vitamin C Tab) 250 mg DAILY PO 07/11/17 09:00 08/10/17 08:59 07/15/17 07:48 250 MG Calcium/Vitamin D (Caltrate Plus Tab) 1 tab BID PO 07/11/17 09:00 08/10/17 08:59 07/15/17 07:49 1 TAB Polyethylene (Miralax Powder Packet) 17 gm BID PRN PO 07/11/17 03:30 08/10/17 03:29 07/11/17 06:08 17 GM Levalbuterol (Xopenex Hfa Inhaler) 2 puffs QID PRN INH 07/11/17 14:00 08/10/17 13:59 Amlodipine Besylate (Norvasc Tab) 2.5 mg DAILY PO 07/12/17 09:00 08/11/17 08:59 07/15/17 07:51 2.5 MG Fexofenadine HCl (Estee Tab) 180 mg DAILY PO 07/12/17 09:00 08/10/17 03:29 07/15/17 07:50 180 MG Non-Formulary Medication (Non-Formulary Patient'S Own Med) 1 ea QAM EXT 07/12/17 09:00 08/11/17 08:59 07/15/17 07:46 1 EA Ceftriaxone Sodium 1 gm/ Dextrose 50 ml @ 100 mls/hr Q24H IV 07/12/17 16:00 07/19/17 15:59 07/15/17 15:49 100 MLS/HR Clindamycin Phosphate 600 mg/ Dextrose 54 ml @ 100 mls/hr Q8H IV 07/12/17 14:00 07/26/17 13:59 07/15/17 13:47 100 MLS/HR Menthol (Nice Jb) 1 jb Q1H PRN JB 07/12/17 18:00 08/11/17 17:59 Ketoconazole (Nizoral 2% Crm) 1 appln BID EXT 07/13/17 12:00 07/23/17 11:59 07/15/17 07:47 1 APPLN Mometasone Furoate (Elocon 0.1% Oint) 1 appln BID EXT 07/13/17 12:00 08/12/17 11:59 07/15/17 07:47 1 APPLN Estradiol (Vagifem Vaginal Tab) 10 mcg MoWeFr@0900 PV 07/13/17 12:00 08/12/17 11:59 07/15/17 07:47 10 MCG Rivaroxaban (Xarelto Tab) 20 mg DAILY@1800 PO 07/14/17 12:00 08/13/17 11:59 07/15/17 17:33 20 MG Prednisone (PredniSONE TAB) 40 mg DAILY PO 07/15/17 09:00 08/14/17 08:59 07/15/17 07:49 40 MG I & O: 24-Hour Column 07/16/17 08:00 Intake Total 240 ml Output Total 1000 ml Balance -760 ml Vital Signs: Date Time Temp Pulse Resp B/P (MAP) Pulse Ox O2 Delivery O2 Flow Rate FiO2 07/15/17 16:00 Room Air 07/15/17 15:28 36.7 78 18 150/85 (106) 95 Room Air 07/15/17 11:49 36.9 75 18 133/72 (92) 95 Room Air 07/15/17 08:00 Room Air 07/15/17 07:20 36.5 75 18 156/95 (115) 95 Room Air 07/15/17 07:07 55 16 96 Room Air 07/15/17 04:36 36.4 104 18 159/88 (111) 97 Room Air 07/15/17 00:32 36.6 76 18 155/80 (105) 95 Room Air 07/15/17 00:02 Room Air 07/14/17 19:27 36.6 74 18 147/80 (102) 95 Room Air 07/14/17 19:10 65 16 97 Room Air
[2017-07-15] MEDS: MONTELUKAST SOD 10 MG TAB PO SCH (20:56)
[2017-07-16] VITALS (7 sets, daily range): BP systolic 116–154; BP diastolic 70–90; PULSE 48–86; TEMP 36.4–36.6; O2SAT 92–97
[2017-07-16] MEDS: CLINDAMYCIN IV 600 MG in DEXTROSE 5% 50ML 50 ML IV SCH ×3 (05:57→21:13)
[2017-07-16] MEDS: LEVOTHYROXINE 75 MCG TAB PO SCH (06:01)
[2017-07-16] MEDS: BUDESONIDE 0.5 MG/2 ML VIAL (PULMICORT) INH SCH ×2 (07:04→19:07)
[2017-07-16 09:13] LABS: HEMATOCRIT 43.1 % (37-47); HEMOGLOBIN 14.6 g/dL (12.0-16.0); MEAN CELL VOLUME 85.5 fL (80-100); MEAN CORPUSCULAR HGB CONC 33.9 g/dl (32-36); MEAN PLATELET VOLUME 9.7 fL (7.4-10.4); PLATELET COUNT 334 K/uL (130-400); RED CELL DISTRIBUTION WIDTH CV 15.1 % (11.5-14.5); WHITE BLOOD COUNT 7.43 K/uL (4.8-10.8)
[2017-07-16] MEDS: CALCIUM 600MG + VIT D 400 IU TAB PO SCH ×2 (09:19→21:13)
[2017-07-16] MEDS: AMLODIPINE BESYLATE 5 MG TAB PO SCH (09:20)
[2017-07-16] MEDS: FEXOFENADINE HCL 180 MG TAB PO SCH (09:20)
[2017-07-16] MEDS: LACTOBACILLUS ACIDOPHILUS (FLORANEX) TAB PO SCH ×3 (09:21→17:40)
[2017-07-16] MEDS: PANTOprazole SOD 40 MG TAB PO SCH ×2 (09:21→21:13)
[2017-07-16] MEDS: GUAIFENESIN 600 MG TABCR PO SCH ×2 (09:21→21:13)
[2017-07-16] MEDS: ASCORBIC ACID 500 MG TAB PO SCH (09:21)
[2017-07-16] MEDS: CHOLECALCIFEROL 1000 INTER.UNIT TAB PO SCH (09:21)
[2017-07-16] MEDS: ESTRADIOL PV SCH (09:22)
[2017-07-16] MEDS: [UNRECOGNIZED DRUG - OTHER] PV SCH (09:22)
[2017-07-16] MEDS: MOMETASONE FUROATE 0.1% EXT SCH ×2 (09:23→21:14)
[2017-07-16] MEDS: KETOCONAZOLE 2% EXT SCH ×2 (09:23→21:14)
[2017-07-16] MEDS: SOOLANTRA 1% EXT SCH (09:33)
[2017-07-16 09:43] LABS: CALCIUM 8.7 mg/dl (8.5-10.1); CREATININE 0.84 mg/dl (0.60-1.20); POTASSIUM 3.5 mmol/L (3.5-5.1)
--- NOTE | 2017-07-16 09:49 | CARDIOLOGY PROGRESS NOTE ---
DATE: 07/16/2017 SUBJECTIVE: Mrs. Malone is resting comfortably in the bedside chair without complaints of chest pain, dyspnea, or palpitations. OBJECTIVE: VITAL SIGNS: Blood pressure is 140/70 with an irregular pulse of 60. Respiratory rate is 18. The patient is afebrile at 36.6 degrees Celsius. Saturations 95% on room air. NECK: Supple with full carotid upstrokes. There are no carotid bruits. Jugular venous pressure is flat at 90 degrees. There is no thyromegaly. CARDIOVASCULAR: Reveals an irregular regular rhythm with distant heart sounds. No obvious murmurs. LUNGS: Clear without rales, rhonchi, or wheeze. ABDOMEN: Soft, nontender without bruits. EXTREMITIES: Reveals intact radial artery pulses bilaterally. There is no peripheral edema. DATA: CBC and PRP are pending at this time. IMPRESSION AND PLAN: 1. Permanent atrial fibrillation - Xarelto has been restarted as there is no plan for pulmonary biopsy. 2. Hypertension - controlled. 3. Hypercholesterolemia - continue statin. 4. Gastroesophageal reflux disease. 5. Chronic venous insufficiency. 6. Pulmonary issues - being treated for bilobar pneumonia. The possibility of pulmonary masses is being entertained. Management per tutorial laboratory supervisor. MTDD
--- NOTE | 2017-07-16 15:28 | Hospitalist Progress Note ---
Hospitalist Progress Note Date of Service July 16, 2017. (Sydney Youngblood ., EDGAR) Subjective Pt evaluation today including: conversation w/ patient, physical exam, chart review, lab review, conversation w/ contaminated land consultant (Dr. King ) Voiding: no voiding problems Ms. Malone is feeling somewhat better today. She is still complaining of feeling that something is sticking in her throat and that she is not breathing as well as she'd like. She had a number of questions about medications which I did spend time answering for her. ROS Constitutional: no chills, aches, sweats or fever Respiratory: no sob,cough, sputum, or wheezing Cardiac: no chest pain, palpitations, edema, orthopnea or lightheadedness GI: no abdominal pain, nausea, vomiting, diarrhea or constipation : no dysuria or hesitancy Extremities: no joint pain or weakness Skin: no rash All other systems reviewed and negative (Sydney Youngblood .EDGAR) Medications Medications Administered Medications (Trade) Dose Ordered Sig/Drew Route Start Time Stop Time Status Last Admin Dose Admin Sodium Chloride 1,000 ml @ 999 mls/hr Q1H1M STAT IV 07/10/17 21:06 07/10/17 22:06 DC 07/10/17 21:12 999 MLS/HR Ceftriaxone Sodium 1 gm/ Dextrose 50 ml @ 100 mls/hr ONE STAT IV 07/10/17 21:33 07/10/17 22:02 DC 07/10/17 21:44 100 MLS/HR Acetaminophen (Tylenol Tab) 650 mg Q4H PRN PO 07/10/17 23:15 08/09/17 23:14 07/15/17 20:54 325 MG Aztreonam 1000 mg/ Dextrose 110 ml @ 100 mls/hr Q8H IV 07/11/17 02:00 07/12/17 12:45 DC 07/12/17 10:27 100 MLS/HR Budesonide (Pulmicort Respules 0.5MG/ 2ML Neb Soln) 0.5 mg BIDR INH 07/11/17 08:00 08/10/17 07:59 07/16/17 07:04 0.5 MG Guaifenesin (Mucinex Contr Rel Tab) 600 mg Q12 PO 07/11/17 09:00 6/1/18 08:59 07/16/17 09:21 600 MG Vancomycin HCl 1500 mg/Sodium Chloride 530 ml @ 200 mls/hr TODAY@0000 IV 07/11/17 00:00 07/11/17 02:38 DC 07/11/17 00:00 200 MLS/HR Lactobacillus Acidophilus (Floranex Tab) 4 tab TIDM PO 07/11/17 08:00 08/10/17 07:59 07/16/17 13:38 4 TAB Cholecalciferol (Vitamin D Tab) 2,000 inter.unit DAILY PO 07/11/17 09:00 08/10/17 08:59 07/16/17 09:21 2,000 INTER.UNIT Levothyroxine Sodium (Synthroid Tab) 50 mcg Q2D@0630 PO 07/11/17 06:30 08/10/17 06:29 07/15/17 06:26 50 MCG Levothyroxine Sodium (Synthroid Tab) 75 mcg Q2D@0630 PO 07/12/17 06:30 08/11/17 06:29 07/16/17 06:01 75 MCG Montelukast Sodium (Singulair Tab) 10 mg HS PO 07/11/17 21:00 08/10/17 20:59 07/15/17 20:56 10 MG Multivitamins/ Minerals (Multivitamin W/ Minerals Tab) 1 tab Q2D PO 07/11/17 03:30 08/10/17 03:29 07/15/17 06:26 1 TAB Pantoprazole Sodium (Protonix Tab) 40 mg BID PO 07/11/17 09:00 08/10/17 08:59 07/16/17 09:21 40 MG Rivaroxaban (Xarelto Tab) 20 mg DAILY PO 07/11/17 09:00 07/11/17 14:11 DC 07/11/17 07:55 20 MG Sodium Chloride ([place] Nasal [place]) 1 sprays QID PRN NA 07/11/17 03:30 08/10/17 03:29 07/11/17 05:55 1 SPRAYS Ascorbic Acid (Vitamin C Tab) 250 mg DAILY PO 07/11/17 09:00 08/10/17 08:59 07/16/17 09:21 250 MG Calcium/Vitamin D (Caltrate Plus Tab) 1 tab BID PO 07/11/17 09:00 08/10/17 08:59 07/16/17 09:19 1 TAB Polyethylene (Miralax Powder Packet) 17 gm BID PRN PO 07/11/17 03:30 08/10/17 03:29 07/11/17 06:08 17 GM Vancomycin HCl 1000 mg/Sodium Chloride 270 ml @ 125 mls/hr Q12H IV 07/11/17 12:00 07/12/17 12:45 DC 07/12/17 12:01 125 MLS/HR Amlodipine Besylate (Norvasc Tab) 2.5 mg DAILY PO 07/12/17 09:00 08/11/17 08:59 07/16/17 09:20 2.5 MG Fexofenadine HCl (Estee Tab) 180 mg DAILY PO 07/12/17 09:00 08/10/17 03:29 07/16/17 09:20 180 MG Non-Formulary Medication (Non-Formulary Patient'S Own Med) 1 ea QAM EXT 07/12/17 09:00 08/11/17 08:59 07/16/17 09:33 1 EA Potassium Chloride (Klor-Con Tab) 40 meq NOW ONCE PO 07/12/17 09:15 07/12/17 09:16 DC 07/12/17 10:01 40 MEQ Ceftriaxone Sodium 1 gm/ Dextrose 50 ml @ 100 mls/hr Q24H IV 07/12/17 16:00 07/19/17 15:59 07/15/17 15:49 100 MLS/HR Clindamycin Phosphate 600 mg/ Dextrose 54 ml @ 100 mls/hr Q8H IV 07/12/17 14:00 07/26/17 13:59 07/16/17 13:38 100 MLS/HR Methylprednisolone Sodium Succinate 40 mg/Syringe 0.64 ml @ 1.5 mls/min Q12 IV 07/12/17 21:00 07/14/17 23:59 DC 07/14/17 20:35 1.5 MLS/MIN Potassium Chloride (Klor-Con M10) 40 meq NOW ONCE PO 07/13/17 08:30 07/13/17 08:35 DC 07/13/17 09:17 40 MEQ Ketoconazole (Nizoral 2% Crm) 1 appln BID EXT 07/13/17 12:00 07/23/17 11:59 07/16/17 09:23 1 APPLN Mometasone Furoate (Elocon 0.1% Oint) 1 appln BID EXT 07/13/17 12:00 08/12/17 11:59 07/16/17 09:23 1 APPLN Estradiol (Vagifem Vaginal Tab) 10 mcg MoWeFr@0900 PV 07/13/17 12:00 08/12/17 11:59 07/16/17 09:22 10 MCG Rivaroxaban (Xarelto Tab) 20 mg DAILY@1800 PO 07/14/17 12:00 08/13/17 11:59 07/15/17 17:33 20 MG Prednisone (PredniSONE TAB) 40 mg DAILY PO 07/15/17 09:00 08/14/17 08:59 07/16/17 09:21 40 MG (Sydney Youngblood CRNP) Objective Vital Signs Date Time Temp Pulse Resp B/P (MAP) Pulse Ox O2 Delivery O2 Flow Rate FiO2 07/16/17 15:07 36.4 70 18 144/75 (98) 92 Room Air 07/16/17 11:46 36.4 53 18 116/70 (85) 96 Room Air 07/16/17 08:00 Room Air 07/16/17 07:06 50 15 96 Room Air 07/16/17 07:03 36.6 48 18 140/73 (95) 93 Room Air 07/16/17 03:28 36.6 57 18 154/82 (106) 97 Room Air 07/16/17 00:01 Room Air 07/15/17 23:25 36.6 80 20 156/88 (110) 96 Room Air 07/15/17 19:50 77 16 97 Room Air 07/15/17 18:59 36.8 70 18 148/73 (98) 96 Room Air 07/15/17 16:00 Room Air 07/15/17 15:28 36.7 78 18 150/85 (106) 95 Room Air (Sydney Youngblood CRNP) Physical Exam Notes: General: no distress Eyes: normal inspection, PERLL Respiratory: chest non tender, clear to auscultation, normal breath sounds, no respiratory distress, no accessory muscle use Cardiac: irregular rate and rhythm, no rub or gallop, no murmur, no edema, no jvd GI/: active bowel sounds, no abd pain or tenderness, soft, non distended Extremities: normal range of motion, normal strength, non tender Neuro/Psych: alert and oriented x 3, normal mood and affect Skin: normal color, dry (Sydney Youngblood, EDGAR) Laboratory Results Last 24 Hours Test 07/16/17 09:05 White Blood Count 7.43 K/uL Red Blood Count 5.04 M/uL Hemoglobin 14.6 g/dL Hematocrit 43.1 % Mean Corpuscular Volume 85.5 fL Mean Corpuscular Hemoglobin 29.0 pg Mean Corpuscular Hemoglobin Concent 33.9 g/dl RDW Standard Deviation 47.0 fL RDW Coefficient of Variation 15.1 % Platelet Count 334 K/uL Mean Platelet Volume 9.7 fL Sodium Level 140 mmol/L Potassium Level 3.5 mmol/L Chloride Level 105 mmol/L Carbon Dioxide Level 26 mmol/L Anion Gap 9.0 mmol/L Blood Urea Nitrogen 22 mg/dl Creatinine 0.84 mg/dl Est Creatinine Clear Calc Drug Dose 52.8 ml/min Estimated GFR () 76.6 Estimated GFR (Non- 66.1 BUN/Creatinine Ratio 26.7 Random Glucose 101 mg/dl Calcium Level 8.7 mg/dl (Sydney Youngblood CRNP) Assessment and Plan Ms. Malone is a 77 year old woman here for community acquired pneumonia. Bilateral community acquired multifocal pneumonia/asthma/COPD - CT without contrast showing multifocal pneumonia - initially on IV vanc and aztreonam - patient has multiple antibiotic allergies - changed to clindamycin and ceftriaxone per pulmonology - today is 7 days of abx and can be discontinued - Continue Guaifenesin, Pulmicort, Xopenex inhaler q6h prn - Continue Singulair 10 mg p.o. daily. - Consulted pulmonology - per their note, do not anticipate need for bronch - continue abx and steroids - decreased steroids to 40 mg prednisone yesterday - continue to taper - Speech consult and video swallow - no apparent aspiration History of atrial fibrillation/presently in atrial flutter with variable block, htn-- - Continue Xarelto 20 mg daily. - continue amlodipine 2.5 mg - bps stable Hypokalemia - replaced - prp am Hypothyroidism-- Continue levothyroxine sodium 50 mcg alternating 75 mcg. TSH wnl GERD-- Continue pantoprazole 40 mg p.o. twice daily. - Follow up with ENT outpatient for feeling of something stuck in throat - no apparent stridor or airway compromise Diarrhea - C.diff negative Chronic vaginitis - continue home estradiol cream and mometasone cream Full code Xeralto, SCDs DC tomorrow as IV abx completed and patient has improved - will dc with home health, will also send home with budesonide nebulizer. (Sydney Youngblood CRNP) Supervising Note Dr. Godoy I performed a history and physical examination on the patient. I reviewed above note and agree with it. I discussed plan with APC and patient. During my face to face encounter with the patient, I answered all of the patient's questions. Patient will contiue antibiotics to finish course today. Will continue to monitor her symptoms with likely discharge tomorrow. Patient has difficult to control asthma which requires nebulizer treatments. (Flavio Godoy M.D.)
[2017-07-16] MEDS: CEFTRIAXONE SOD INJ 1 GM in DEXTROSE 5% ADD-VANTAGE 50ML 50 ML IV SCH (15:53)
[2017-07-16] MEDS: RIVAROXABAN 20 MG TAB PO SCH (17:40)
[2017-07-16] MEDS: CEROVITE ADV FORMULA TAB PO SCH (21:13)
[2017-07-16] MEDS: MONTELUKAST SOD 10 MG TAB PO SCH (21:13)
[2017-07-16] MEDS: ACETAMINOPHEN 325 MG TAB PO PRN (23:50)
[2017-07-17] MEDS ORDERED: BUDESONIDE 0.5 MG/2 ML VIAL (PULMICORT) INH SCH
[2017-07-17] MEDS: LEVOTHYROXINE 50 MCG TAB PO SCH (06:16)
[2017-07-17 07:13] VITALS: PULSE 76; O2SAT 97
[2017-07-17] MEDS: BUDESONIDE 0.5 MG/2 ML VIAL (PULMICORT) INH SCH (07:13)
[2017-07-17 07:30] VITALS: BP 182/84; PULSE 60; TEMP 35.6; O2SAT 95
[2017-07-17 09:22] VITALS: BP 125/77
[2017-07-17] MEDS: MOMETASONE FUROATE 0.1% EXT SCH (09:23)
[2017-07-17] MEDS: FEXOFENADINE HCL 180 MG TAB PO SCH (09:24)
[2017-07-17] MEDS: LACTOBACILLUS ACIDOPHILUS (FLORANEX) TAB PO SCH ×3 (09:24→17:35)
[2017-07-17] MEDS: KETOCONAZOLE 2% EXT SCH (09:24)
[2017-07-17] MEDS: AMLODIPINE BESYLATE 5 MG TAB PO SCH (09:24)
[2017-07-17] MEDS: SOOLANTRA 1% EXT SCH (09:25)
[2017-07-17] MEDS: CHOLECALCIFEROL 1000 INTER.UNIT TAB PO SCH (09:25)
[2017-07-17] MEDS: ASCORBIC ACID 500 MG TAB PO SCH (09:25)
[2017-07-17] MEDS: GUAIFENESIN 600 MG TABCR PO SCH (09:25)
[2017-07-17] MEDS: CALCIUM 600MG + VIT D 400 IU TAB PO SCH (09:25)
[2017-07-17] MEDS: PANTOprazole SOD 40 MG TAB PO SCH (09:25)
[2017-07-17 15:48] VITALS: BP 136/87; PULSE 80; TEMP 36.9; O2SAT 96
[2017-07-17] MEDS ORDERED: PRD10 PO (15:56)
[2017-07-17] MEDS ORDERED: PLMINS INH (15:56)
--- NOTE | 2017-07-17 15:57 | Discharge Instructions ---
Discharge Instructions Date of Service July 17, 2017. Admission Reason for Admission: Pneumonia Discharge Discharge Diagnosis / Problem: Pneumonia Discharge Goals Goal(s): Decrease discomfort, Improve function Activity Recommendations Activity Limitations: resume your previous activity . Instructions / Follow-Up Instructions / Follow-Up [facility]: Follow up appointment information was added to the DC instructions - "Please, follow up at Dr. Flores's office with Dana Estrella PA-C on SundayJuly 20 at 9:30 am. *If you need to change this appointment, call their office at [phone]. Please, follow up at [facility]'s Pulmonology Office with Dr. Anderson's claims assistant, Rosa Rodríguez PA-C, on SundayJuly 25 at 1:00 pm. *If you need to change this appointment, call their office at [phone]. Please, follow up at [facility]'s Ear Nose & Throat (ENT) Office - the nurse will call you with the appointment details. *If you have any questions, call the office at [phone]." I spoke w/ the family practice doctor at the ENT office and she prefers to call the pt directly so they can coordinate the appointment date and time. Current Hospital Diet Patient's current hospital diet: Low Fiber Diet Discharge Diet Recommended Diet: Low Fiber Diet Pending Studies Studies pending at discharge: no Medical Emergencies . Who to Call and When: Medical Emergencies: If at any time you feel your situation is an emergency, please call 911 immediately. . Non-Emergent Contact Non-Emergency issues call your: Primary Care Provider Call Non-Emergent contact if: you have any medication questions . . "Provider Documentation" section prepared by Flavio Godoy. .
[2017-07-17 17:08] VITALS: BP 136/87; PULSE 80; TEMP 36.9; O2SAT 96
[2017-07-17] MEDS: RIVAROXABAN 20 MG TAB PO SCH (17:35)
--- NOTE | 2017-07-18 09:45 | Discharge Summary ---
Discharge Summary Date of Service July 17, 2017. Discharge Summary Admission Date: July 10, 2017 at 23:04 Discharge Date: July 17, 2017 Discharge Disposition: Home with services Principal Diagnosis: Asthma/copd exacerbation Immunizations: Have You Had Influenza Vaccine: Yes History of Tetanus Vaccine?: UTD History of Pneumococcal: Yes History of Hepatitis B Vaccine: No Medication Reconciliation New Medications: Budesonide (Inhalation) (Pulmicort Respules 0.5MG/2ML) 0.5 Mg/2 Ml Laura 0.5 MG INH BID for 30 Days, #60 AMP 1 Refill Prednisone (Prednisone) 10 Mg Tab 10 MG PO UD for 9 Days, #18 TAB Take 3 tablets BY MOUTH FOR 3 DAYS 2 TABLETS BY MOUTH FOR 3 DAYS 1 TABLET BY MOUTH FOR 3 DAY Continued Medications: Acetaminophen Tab (Tylenol) 325 Mg Tab 325 MG PO Q6H PRN for Pain or Fever, TAB Acetaminophen Tab (Tylenol) 325 Mg Tab 325 MG PO BID Albuterol (Ventolin Hfa) 60 Puffs/5400 Mcg Aers 2 PUFFS INH Q6H PRN for SOB/Wheezing [id number] (Beano) 1 Tab Tab 2 TABS PO DAILY Amlodipine Besylate (Norvasc) 2.5 Mg Tab 2.5 MG PO DAILY, TAB Ascorbic Acid (Vitamin C) 250 Mg Tab 250 MG PO DAILY Calcium Citrate-Vitamin D (Citracal + D3 Maximum) 1 Tab Tab 1 TAB PO BID Cholecalciferol (Vitamin D 1000 Unit) 1,000 Unit Cap 2000 INTER.UNIT PO DAILY, CAP Estradiol (Vagifem) 10 Mcg Tab 10 MCG PV [id number] Fexofenadine Hcl (Estee Allergy) 180 Mg Tab 180 MG PO DAILY PRN for Allergy Symptoms, TAB Ivermectin (Rosacea) (Soolantra) 1 % Cre 1 APPLN TOP DAILY APPLY DIRECTED TO BILATERAL CHEEKS AND CHIN Ketoconazole (Ketoconazole) 45 Appln/15 Gm Cr 1 APPLN TOP BID Levothyroxine Sodium (Synthroid) 50 Mcg Tab 50 MCG PO Q2D Levothyroxine Sodium (Synthroid) 75 Mcg Tab 75 MCG PO Q2D Mometasone Furoate (Mometasone Furoate) 0.1 % Oin 1 APPLN TOP BID PRN for . Montelukast Sod (Montelukast Sodium) 10 Mg Tab 10 MG PO HS Multiple Vitamins W/ Minerals (Centrum Silver Adult 50+) 1 Tab Tab 1 TAB PO Q2D Pantoprazole Sodium (Protonix) 40 Mg Tab 40 MG PO BID, TAB TAKE THIS MEDICATION 30 MINUTES BEFORE BREAKFAST AND EVENING MEAL Polyethylene Glycol 3350 (Miralax) 1 Pow Pow 17 GM PO BID PRN for Constipation, GM MIX WITH 8 OUNCES OF LIQUID Rivaroxaban (Xarelto) 20 Mg Tab 20 MG PO DAILY Saline (Saline Nasal [place]) 0.65 % Spr 1 SPRAY NA QID PRN for Nasal Dryness [Coq10/Black Pepper] () 200 MG PO DAILY Discontinued Medications: Ciclesonide (Alvesco) 160 Mcg/Act Aer 1 PUFF INH BID RINSE MOUTH AFTER USE Probiotic Product (Probiotic) 1 Cap Cap 1 CAP PO DAILY Discharge Exam ROS Constitutional: no chills, aches, sweats or fever Respiratory: no sob,cough, sputum, or wheezing Cardiac: no chest pain, palpitations, edema, orthopnea or lightheadedness GI: no abdominal pain, nausea, vomiting, diarrhea or constipation : no dysuria or hesitancy Extremities: no joint pain or weakness Skin: no rash All other systems reviewed and negative Physical Exam Notes: General: no distress Eyes: normal inspection, PERLL Respiratory: chest non tender, clear to auscultation, normal breath sounds, no respiratory distress, no accessory muscle use Cardiac: irregular rate and rhythm, no rub or gallop, no murmur, no edema, no jvd GI/: active bowel sounds, no abd pain or tenderness, soft, non distended Extremities: normal range of motion, normal strength, non tender Neuro/Psych: alert and oriented x 3, normal mood and affect Skin: normal color, dry Hospital Course Ms. Malone is a 77 year old woman here for community acquired pneumonia. Bilateral community acquired multifocal pneumonia/asthma/COPD Multifocal Pneumonia with possible Gram-Negative Pneumonia -cultures were negative. -Patient gradullay improved [facility] hospital stay - CT without contrast showing multifocal pneumonia - initially on IV vanc and aztreonam - patient has multiple antibiotic allergies - changed to clindamycin and ceftriaxone per pulmonology - today is 7 days of abx and can be discontinued - Continue Guaifenesin, Pulmicort, Xopenex inhaler q6h prn - Continue Singulair 10 mg p.o. daily. - Consulted pulmonology - per their note, do not anticipate need for bronch - continue abx and steroids - decreased steroids to 40 mg prednisone yesterday - continue to taper - Speech consult and video swallow - no apparent aspiration -Given the difficult course of her COPD/asthma, patient required and continues to need pulmicort via nebulizer. -Patient will also be on steroid taper. -will followup with pulmonary as an outpatient. -patient completed her antibiotics. History of atrial fibrillation/presently in atrial flutter with variable block, htn-- - Continue Xarelto 20 mg daily. - continue amlodipine 2.5 mg - bps stable Hypokalemia - replaced Hypothyroidism-- Continue levothyroxine sodium 50 mcg alternating 75 mcg. TSH wnl GERD-- Continue pantoprazole 40 mg p.o. twice daily. - Follow up with ENT outpatient for feeling of something stuck in throat - no apparent stridor or airway compromise Diarrhea - C.diff negative Chronic vaginitis - continue home estradiol cream and mometasone cream Full code Xeralto, SCDs Total Time Spent: Greater than 30 minutes This includes examination of the patient, discharge planning, medication reconciliation, and communication with other providers. Discharge Instructions Please refer to the electronic Patient Visit Report (Discharge Instructions) for additional information. Follow-Up as noted in discharge instructions Additional Copies To Luis Daniel Flores M.D.
--- NOTE | 2017-07-19 09:00 | EDITING REQUIRED CODING QUERY ---
CODING QUERY To promote full compliance with coding requirements relating to patient care, provider participation is requested in all cases of certified medical coder uncertainty. Please assist us with the question(s) below: Coding Question(s): There is documentation of Multifocal Pneumonia. The 07/11/17 Progress Note documents Multifocal Pneumonia with concern for Gram-Negative Pneumonia, however, this was not further documented or ruled-out. Please specify below, in your clinical opinion, regarding the Multifocal Pneumonia. ( x ) Multifocal Pneumonia with possible Gram-Negative Pneumonia ( ) Multifocal Pneumonia with Community Acquired Pneumonia with No Gram-Negative Pneumonia (Gram-Negative Pneumonia was ruled-out) ( ) Multifocal Pneumonia - Other, Please Specify Physician's Response(s): Thank you Darby Byers Principal Diagnosis: "_that condition established after study, to be chiefly responsible for occasioning the admission of the patient to the hospital for care." Co-Existing Principal Diagnosis: "_when two or more diagnoses equally meet the criteria for principal diagnosis as determined by the circumstances of admission, diagnostic work up, and/or therapy provided, and the Alphabetic Index, Tabular List, or another coding guideline does not provide sequencing direction, any one of the diagnoses may be sequenced first." "When the physician has documented what appears to be a current diagnosis in the body of the record, but has not included the diagnosis in the final diagnostic statement, the physician should be asked whether the diagnosis should be added." ([facility] 2 QTR90. p3-4)
== END 2017-07-17 18:45 | disposition home health service (06) | DRG 178 ==
LOC: C.EDB 20:17 → C.MED 23:04 → ENRESERV 23:18
PROVIDERS: ADMIT Hospitalist; ATTEND Internal Medicine Sports Medicine
DX: J15.6 Pneumonia due to other Gram-negative bacteria (principal); J44.0 Chronic obstructive pulmonary disease with (acute) lower respiratory infection; J44.1 Chronic obstructive pulmonary disease with (acute) exacerbation; J45.901 Unspecified asthma with (acute) exacerbation; I47.2 Ventricular tachycardia; I48.92 Unspecified atrial flutter; E87.6 Hypokalemia; R19.7 Diarrhea, unspecified; K22.4 Dyskinesia of esophagus; I48.2 Chronic atrial fibrillation; I11.9 Hypertensive heart disease without heart failure; E03.9 Hypothyroidism, unspecified; K21.9 Gastro-esophageal reflux disease without esophagitis; N76.1 Subacute and chronic vaginitis; Z79.899 Other long term (current) drug therapy; Z79.01 Long term (current) use of anticoagulants; Z87.01 Personal history of pneumonia (recurrent); Z85.3 Personal history of malignant neoplasm of breast; Z87.891 Personal history of nicotine dependence; Z88.2 Allergy status to sulfonamides; Z88.0 Allergy status to penicillin; Z88.8 Allergy status to other drugs, medicaments and biological substances; Z88.3 Allergy status to other anti-infective agents; Z88.1 Allergy status to other antibiotic agents; Z91.048 Other nonmedicinal substance allergy status; Z82.49 Family history of ischemic heart disease and other diseases of the circulatory system; Z83.3 Family history of diabetes mellitus

== ENCOUNTER → 2017-07-10 | Outpatient (CLI) | payer OTHER, MEDICARE ==
[~2017-07-10] MED LIST changes: +BLACK PEPPER PO; +MOME0.1O3 TOP; +NZRCR TOP; +SALI-3; -SALI1SPR3; +UBIDECARENONE PO; +XRL20 PO
--- NOTE | 2017-07-10 16:15 | DIAGNOSTIC IMAGING REPORT ---
CHEST 2 VIEWS ROUTINE CLINICAL HISTORY: J45.909 Extrinsic [id number] dyspnea COMPARISON STUDY: 04/16/2017 FINDINGS: Mild stable cardiomegaly. Poorly defined parenchymal infiltrate left perihilar region. Parenchymal infiltrate right mid and lower lung. Pulmonary apices are clear. Emphysematous changes present. IMPRESSION: Bilateral parenchymal infiltrates. Baseline emphysematous change. The above report was generated using voice recognition software. It may contain grammatical, syntax or spelling errors. Electronically signed by: Hussain Cody M.D. 07/10/2017 4:13 PM Dictated Date/Time: 07/10/2017 4:12 PM
== END | disposition home or self-care (01) ==
LOC: C.RAD1850 16:01
PROVIDERS: ATTEND Internal Medicine Pulmonary Disease
DX: J45.909 Unspecified asthma, uncomplicated (principal); R91.8 Other nonspecific abnormal finding of lung field

== ENCOUNTER → 2017-07-31 | Outpatient (CLI) | payer OTHER, MEDICARE ==
[~2017-07-31] MED LIST changes: +BLACK PEPPER PO; -CEFD1CAP14 PO; +CHOL100027 PO; -CICL160A INH; -COEN100C7 PO; +IVER1CRE TOP; -MISCCAP80 PO; +MOME0.1O3 TOP; +NZRCR TOP; +PLMINS INH; +PRD10 PO; +PRVHFAIN INH; +SNG10 PO; +SYN50 PO; +SYN75 PO; +UBIDECARENONE PO; +VGFVS/24 PV; +XRL20 PO
--- NOTE | 2017-07-31 14:51 | DIAGNOSTIC IMAGING REPORT ---
TWO VIEW CHEST CLINICAL HISTORY: Follow-up abnormal chest x-ray. FINDINGS: PA and lateral chest radiographs are compared to study dated 07/10/2017 and correlated with chest CT dated 07/11/2017. The heart is enlarged and there is atherosclerotic calcification of the thoracic aorta. The pulmonary vasculature is noncongested. There is mild patchy airspace consolidation seen in the left midlung and at the right lung base. This has partially cleared from 07/10/2017. No pleural effusion is identified. There is no pneumothorax. The skeletal structures are osteopenic. The bony thorax appears intact. Degenerative change is noted throughout the thoracic spine and shoulders IMPRESSION: 1. Cardiomegaly without radiographic evidence of congestive failure. 2. Airspace consolidation in the left midlung and at the right lung base has partially cleared from 07/10/2017. Continued follow-up to complete resolution is recommended. Electronically signed by: David Marcum M.D. 07/31/2017 2:49 PM Dictated Date/Time: 07/31/2017 2:47 PM
== END | disposition home or self-care (01) ==
LOC: C.RAD1850 14:13
PROVIDERS: ATTEND Physician Assistant
DX: R93.8 Abnormal findings on diagnostic imaging of other specified body structures (principal); I51.7 Cardiomegaly

== ENCOUNTER → 2017-10-10 | Outpatient (CLI) | payer OTHER, MEDICARE ==
[2017-10-10 16:55] LABS: BASO % 0.7 %; BASO ABS # 0.04 K/uL (0-0.2); EOS ABS # 0.06 K/uL (0-0.5); HEMATOCRIT 39.9 % (37-47); HEMOGLOBIN 12.7 g/dL (12.0-16.0); IG# 0.01 K/uL (0.00-0.02); LYMPH % 19.4 %; LYMPH ABS # 1.14 K/uL (1.2-3.4); MEAN CELL VOLUME 83.6 fL (80-100); MEAN CORPUSCULAR HEMOGLOBIN 26.6 pg (25-34); MEAN CORPUSCULAR HGB CONC 31.8 g/dl (32-36); MEAN PLATELET VOLUME 10.1 fL (7.4-10.4); MONO % 9.2 %; MONO ABS # 0.54 K/uL (0.11-0.59); NEUT % 69.5 %; NEUT ABS # 4.08 K/uL (1.4-6.5); PLATELET COUNT 166 K/uL (130-400); RED CELL DISTRIBUTION WIDTH CV 16.1 % (11.5-14.5); RED CELL DISTRIBUTION WIDTH SD 49.1 fL (36.4-46.3); WHITE BLOOD COUNT 5.87 K/uL (4.8-10.8)
[2017-10-10 17:25] LABS: BLOOD UREA NITROGEN 22 mg/dl (7-18); CARBON DIOXIDE 23 mmol/L (21-32); CHOLESTEROL 256 mg/dl (0-200); CREATININE 0.77 mg/dl (0.60-1.20); GLUCOSE 94 mg/dl (70-99); LDL CHOLESTEROL CALCULATED 145 mg/dl; POTASSIUM 3.6 mmol/L (3.5-5.1); SODIUM 137 mmol/L (136-145)
== END | disposition home or self-care (01) ==
LOC: C.LAB1850 15:51
PROVIDERS: ATTEND Internal Medicine
DX: D69.3 Immune thrombocytopenic purpura (principal); I48.91 Unspecified atrial fibrillation; E78.5 Hyperlipidemia, unspecified

== ENCOUNTER 2018-12-10 15:06 | Inpatient (IN) ==
[2018-12-10] MEDS ORDERED: SODIUM CHLORIDE 0.9% 500 ML IV SCH (15:30)
[2018-12-10 15:50] LABS: Basophils # (auto) 0.01 K/uL (0-0.2); Basophils % (auto) 0.1 %; Hematocrit (blood only) 38.2 % (37-47); Hemoglobin 12.8 g/dL (12.0-16.0); Immature Granulocytes # (auto) 0.02 K/uL (0.00-0.02); Immature Granulocytes % (auto) 0.3 %; Lymphocytes # (auto) 0.32 K/uL (1.2-3.4); Lymphocytes % (auto) 4.4 %; Mean Corpuscular Hemoglobin 30.3 pg (25-34); Mean Corpuscular Hgb Conc 33.5 g/dL (32-36); Mean Corpuscular Volume 90.5 fL (80-100); Mean Platelet Volume 9.7 fL (7.4-10.4); Monocytes % (auto) 6.9 %; Neutrophils # (auto) 6.42 K/uL (1.4-6.5); Neutrophils % (auto) 88.3 %; Platelet Count 162 K/uL (130-400); RDW Coefficient of Variation 16.2 % (11.5-14.5); RDW Standard Deviation 52.8 fL (36.4-46.3); Red Blood Count 4.22 M/uL (4.2-5.4); White Blood Count 7.27 K/uL (4.8-10.8)
--- NOTE | 2018-12-10 15:50 | XRay Report ---
XR chest 1V portable CLINICAL HISTORY: 78 years-old Female presenting with weakness. TECHNIQUE: Portable upright AP view of the chest was obtained. COMPARISON: 12/07/2018. FINDINGS: Atherosclerosis of the aortic arch. Cardiac silhouette enlarged. No focal opacity. No large effusion or pneumothorax. Degenerative changes of the thoracic spine. Osteopenia. Advanced degenerative change s of the glenohumeral joints. Surgical clips project over the right axilla. IMPRESSION: 1. Cardiomegaly. No other convincing evidence of acute cardiopulmonary disease. Electronically signed by: Andres Mackey M.D. 12/10/2018 3:49 PM
--- NOTE | 2018-12-10 15:52 | XRay Report ---
XR knee RT 2V routine CLINICAL HISTORY: 78 years-old Female presenting with fall, pain. TECHNIQUE: Frontal and crosstable lateral views of the right knee were obtained. COMPARISON: 12/07/2018. FINDINGS: Knee joint congruent with moderate joint space loss medially and mild joint space loss laterally. Laura pected chondrocalcinosis. Osteophytosis in all 3 compartments though most prominently in the medial c ompartment. The positioning of the patient on crosstable lateral view limits evaluation for joint eff usion. Underlying osteopenia. No acute fracture or malalignment. Atherosclerosis. IMPRESSION: 1. Allowing for osteopenia and the degree of degenerative change. No acute osseous injury. 2. Tricompartmental degenerative changes most severe in the medial compartment. Electronically signed by: Andres Mackey M.D. 12/10/2018 3:50 PM
--- NOTE | 2018-12-10 15:54 | XRay Report ---
XR knee LT 2V routine CLINICAL HISTORY: 78 years-old Female presenting with fall, pain. TECHNIQUE: Frontal and crosstable lateral views of the left knee were obtained. COMPARISON: 02/08/2015. FINDINGS: Knee joint congruent with severe medial joint space loss and mild lateral joint space loss. Chondroca lcinosis. Osteophytosis in all 3 compartments though most severe in the medial compartment, where the re is also subchondral sclerosis and cystic change. Mild varus alignment at the knee joint as a resul t of the degenerative change. Positioning and crosstable lateral view limits evaluation for knee join t effusion. Underlying osteopenia. Calcification/ossification along the lateral femoral condyle may i ndicate prior LCL avulsion/injury. No acute fracture or malalignment. IMPRESSION: 1. Allowing for the degree of osteopenia and degenerative change, no acute osseous injury. 2. Severe tricompartmental degenerative changes most prominently in the medial compartment. Electronically signed by: Andres Mackey M.D. 12/10/2018 3:52 PM
[2018-12-10 16:07] LABS: Alanine Aminotransferase 41 U/L (12-78); Albumin Level 3.5 gm/dl (3.4-5.0); Aspartate Aminotransferase 69 U/L (15-37); BUN Creatinine Ratio 27.8 (10-20); Blood Urea Nitrogen 17 mg/dl (7-18); Calcium 9.3 mg/dl (8.5-10.1); Carbon Dioxide 22 mmol/L (21-32); Chloride 104 mmol/L (98-107); Creatinine Clr Calc Pharmacy 74.3 ml/min; Est GFR (African American) 99.2; Est GFR (Non-African American) 85.6; Glucose 113 mg/dl (70-99); Magnesium 1.9 mg/dl (1.8-2.4); Sodium 140 mmol/L (136-145)
[2018-12-10] MEDS ORDERED: POTASSIUM CHLORIDE / WTR 10 MEQ/100 ML PLCT IV ONE (16:14)
[2018-12-10 16:22] LABS: Albumin Globulin Ratio 0.8 (0.9-2); Alkaline Phosphatase 84 U/L (45-117); Bilirubin,Total 1.4 mg/dl (0.2-1); Creatine Kinase 1684 U/L (26-192); Globulin 4.4 gm/dl (2.5-4.0); Total Protein 7.9 gm/dl (6.4-8.2); Troponin I < 0.015 ng/ml (0-0.045)
--- NOTE | 2018-12-10 16:23 | CT Scan Report ---
CT head/brain wo con CLINICAL HISTORY: 78 years-old Female presenting with fall. TECHNIQUE: Multidetector CT imaging of the head was performed without the use of intravenous contrast . IV contrast: None. One or more dose lowering techniques were used consistent with the principles of ALARA (as low as reasonably achievable), including automatic exposure control, mA or kV adjustment t o individual patient size, and/or use of iterative reconstruction. COMPARISON: 12/07/2018. CT DOSE (mGy.cm): The estimated cumulative dose is 876.12 mGy.cm. FINDINGS: Wall Steamer topogram: Unremarkable. Proportional ventricular and sulcal prominence, likely age-related parenchymal volume loss. No hemorr yessica. Brain parenchyma normal in appearance with preserved whitney-white differentiation. No acute charito torial infarct. No mass effect or midline shift. No extra-axial fluid collection. Paranasal sinuses a nd mastoid air cells clear. Calvarium intact. Soft tissue swelling and infiltration along the left pe riorbital/left frontal scalp with trace subcutaneous hematoma. IMPRESSION: 1. No acute intracranial abnormality. 2. Trace contusion and hematoma in the left periorbital/frontal scalp. No subjacent osseous injury. Electronically signed by: Andres Mackey M.D. 12/10/2018 4:22 PM
--- NOTE | 2018-12-10 16:26 | CT Scan Report ---
CT OF THE CERVICAL SPINE WITHOUT CONTRAST CLINICAL HISTORY: Fall. COMPARISON STUDY: Cervical spine CT December 07, 2018. TECHNIQUE: Helical axial images of the cervical spine were obtained without IV contrast. Sagittal a nd coronal reconstructions were viewed. Automated exposure control was utilized for the study. A do se lowering technique was utilized adhering to the principles of ALARA. FINDINGS: No cervical spine fracture is noted. Severe multilevel facet arthrosis is noted with modera te to severe multilevel degenerative disc disease. The appearance of the cervical spine is unchanged. There is no prevertebral edema. Craniocervical junction is intact. There are no suspicious osseous l esions. IMPRESSION: No acute cervical spine fracture or subluxation. Electronically signed by: Rickey Monae M.D. 12/10/2018 4:25 PM
[2018-12-10 17:55] LABS: Appearance Urine Clear (Clear); Bacteria Urine Automated Negative (Negative); Bilirubin Urine Negative (Negative); Blood Urine Trace (Negative); Cast Urine Automated 0 /lpf (0-5); Color Urine Dark Yellow; Epithelial Cell Urine Auto 20-30 /lpf (0-5); Glucose Urine UA Negative (Negative); Ketones Urine 1+ (Negative); Leukocyte Esterase Urine Negative (Negative); Nitrite Urine Negative (Negative); Protein Urine 2+ (Negative); RBC Urine Automated 0-4 /hpf (0-4); Specific Gravity Urine 1.026 (1.000-1.030); Urobilinogen Urine Negative (Negative); WBC Urine Automated 0 /hpf (0-5); pH Urine 5.5 (4.5-7.5)
--- NOTE | 2018-12-10 18:16 | History & Physical Report ---
Date of Service December 10, 2018 Assessment & Plan (1) Near syncope: Admit to PCU on telemetry Vital signs every 4 hours Neurochecks every 4 hours Orthostatics IV fluid with normal saline and potassium at 80 cc/h. Reassess daily and discontinued when potassium normalized and patient well-hydrated. Watch for volume overload. BNP pending CBC CMP daily. Will check for lipid panel, A1c. TTE pending CT angiogram head and neck pending, Renal ultrasound for 30 RBCs and urine pending Physical and Occupational Therapy for frequent falls-to address gait and balance. Patient would possibly need snf Consider nuclear stress test Present on Admission?: Yes (2) Fall: As above, PT OT Present on Admission?: Yes (3) Acute hypokalemia: Continue replenishment with IV fluids with potassium at 80 cc/h, monitor daily Present on Admission?: Yes (4) Chronic constipation: Continue home meds polyethylene glycol Present on Admission?: Yes (5) Generalized anxiety disorder: Patient does not have lorazepam on her list even though she says she takes it occasionally. I would rather use Seroquel if patient is anxious than lorazepam in 78 years old. Present on Admission?: Yes History of Present Illness Chief Complaint: Patient is a 78 years old female with past medical history of hypertension, anxiety, hypothyroidism, positive ARTEMIO, asthma A. lupe's was brought by the ambulance to the emergency room after she was found by her caregiver on the floor for possibly 30 minutes to 1 hour. Patient said that she felt generalized weakness and she fell down on the floor and she could not move. She said that she never lost consciousness but she said she could fall to sleep. Patient is regularly takes her medicine and does not check her blood pressure before she takes her blood pressure medication. It is not clear what occurred t his afternoon when she fell. Patient is on Xarelto for A. fib's. Patient also has anxiety and she takes Lorazepam for it. Her caregiver said that she gets panic attacks if something something does not go her way. Patient had shingles just resolving this week and she completed her therapy for it. She still has some lesions which are in resolution over her right arm. EKG shows atrial fibrillation with premature ventricular complexes and right bundle branch block, with nonspecific T wave abnormalities especially in the anterolateral lateral leads which are abnormal in comparison to her EKG from December 07, 2018. This time patient reports having diarrhea. She had loose bowel movement normal in color this morning. At that time patient was also in the ER for similar fall. Labs are reviewed: WBC 7.27, hemoglobin 12.8, hematocrit 38.2, platelets 162, PT PTT INR pending, potassium 3, chloride 104, anion gap 14, BUN 17, creatinine 0.61 GFR 85.6, magnesium 1.9, bilirubin 1.4, AST 69, ALT 41, alkaline phosphatase 84, creatinine kinase 1684, troponin -0.015, TSH 1.77. CT of the head: No acute intracranial abnormality, trace contusion and hematoma in the left periorbital/frontal scalp. No subjacent osseous injury. Chest x-ray significant for cardiomegaly, no other convincing evidence of acute cardiopulmonary disease. Cervical spine and no acute cervical spine fracture or subluxation. Right knee x-rays: Osteopenia and the degree of degenerative changes, no acute osseous injury. Tricompartmental degenerative changes more severe in the medial compartment. Left knee x-rays degree of osteopenia and degenerative changes no acute osseous injury. Severe tricompartmental degenerative changes prominently in the medial compartment. Due to frequent falls and second visit to the emergency room and near syncope decision was made to admit patient for further evaluation and treatment to PCU telemetry. Primary Care Provider: Luis Daniel Flores MD Allergies Allergy/AdvReac Type Severity Reaction Status Date / Time cat dander Allergy Unknown ALLERGIES Verified 12/07/18 13:02 desloratadine Allergy Unknown UNK Verified 12/07/18 13:02 Sulfa (Sulfonamide Allergy Unknown HIVES Verified 12/07/18 13:02 Antibiotics) mold Allergy Verified 12/07/18 13:02 atropine AdvReac Mild pain & Verified 12/07/18 13:02 diarrhea diphenoxylate AdvReac Mild pain & Verified 12/07/18 13:02 diarrhea moxifloxacin AdvReac Mild pain & Verified 12/07/18 13:02 diarrhea amoxicillin AdvReac Unknown GI SYMPTOMS Verified 12/07/18 13:02 Cipro AdvReac Unknown GI SYMPTOMS Unverified 07/12/17 08:57 ciprofloxacin AdvReac Unknown GI SYMPTOMS Verified 12/07/18 13:02 clavulanic acid AdvReac Unknown GI SYMPTOMS Verified 12/07/18 13:02 erythromycin base AdvReac Unknown GI SYMPTOMS Verified 12/07/18 13:02 metronidazole AdvReac Unknown GI SYMPTOMS Verified 12/07/18 13:02 minocycline AdvReac Unknown GI SYMPTOMS Verified 12/07/18 13:02 Imllpoe-Hpl-Zpm Reductase AdvReac Verified 12/07/18 13:02 Inhibitor Berkley Tree Allergy Unknown ALLERGIES Uncoded 12/07/18 13:02 Dust Allergy Unknown ALLERGIES Uncoded 12/07/18 13:02 Trees Allergy HAY FEVER Uncoded 12/07/18 13:02 Home Medications Home Medications Medication Instructions Recorded Confirmed Type acetaminophen 325 mg tablet 325 mg PO BID tab 07/23/18 12/10/18 History amlodipine 2.5 mg tablet 2.5 mg PO DAILY #30 tab 07/23/18 12/10/18 History calcium citrate 315 mg-vitamin D3 0.5 tab PO DAILY tab 07/23/18 12/10/18 History 250 unit tablet cholecalciferol (vitamin D3) 1,000 1,000 units PO DAILY cap 07/23/18 12/10/18 History unit capsule budesonide 0.5 mg/2 mL suspension 0.5 mg INHALATION Q12H #120 ml 09/24/18 12/10/18 Rx for nebulization coenzyme Q10 200 mg capsule 200 mg PO DAILY 09/24/18 12/10/18 History multivit with 1 tab PO DAILY 09/24/18 12/10/18 History weqwrryu-bvhv-VY-lutein 8 mg iron-400 mcg-300 mcg tablet ascorbic acid (vitamin C) 250 mg 250 mg PO DAILY tab 10/30/18 12/10/18 History tablet cyanocobalamin (vit B-12) 100 mcg 100 mcg PO DAILY tab 10/30/18 12/10/18 History tablet fexofenadine 180 mg tablet 180 mg PO DAILY tab 10/30/18 12/10/18 History levothyroxine 50 mcg tablet 50 mcg PO Q2D #15 tab 10/30/18 12/10/18 History levothyroxine 75 mcg tablet 75 mcg PO Q2D #15 tab 10/30/18 12/10/18 History albuterol sulfate [Ventolin HFA] 2 puff INHALATION QID PRN 11/13/18 12/10/18 History estradiol [Yuvafem] 10 mcg VAGINAL 3XWK 11/13/18 12/10/18 History rivaroxaban 20 mg tablet 20 mg PO DAILY #90 tab 11/13/18 12/10/18 Rx tbtyp-k-ixkbjvheihelx 150 unit 1 tab PO DAILY PRN tab 11/26/18 12/10/18 History tablet pantoprazole 40 mg tablet,delayed 40 mg PO BID #60 tab 11/26/18 12/10/18 History release lidocaine HCl 4 % topical cream 1 appln TOP DAILY #76.5 gm 11/28/18 12/10/18 Rx montelukast 10 mg tablet 10 mg PO DAILY 11/30/18 12/10/18 History pimecrolimus 1 % topical cream 1 applic TOPICAL BID PRN 11/30/18 12/10/18 History polyethylene glycol 3350 [Miralax] 8.5 gm PO DAILY PRN 12/10/18 12/10/18 History sodium chloride [Saline Nasal Mist] 1 spray INTNAS BID PRN 12/10/18 12/10/18 History Past Med/Surg History Medical History Abnormal chest CT (Acute) Allergic rhinitis due to cats (Acute) Allergic rhinitis due to dust (Acute) Bloating (Acute) Chronic ITP (idiopathic thrombocytopenia) (Acute) Chronic constipation (Acute) Depression with anxiety (Acute) Dyslipidemia (Acute) Extrinsic asthma (Acute) Fatigue (Acute) Gastroparesis (Acute) Generalized anxiety disorder (Acute) History of esophageal reflux (Acute) Hypothyroidism (Acute) Impacted cerumen of left ear (Acute) Irritable bowel syndrome (Acute) Peripheral edema (Acute) Permanent atrial fibrillation (Acute) Rosacea (Acute) Sensorineural hearing loss (SNHL) of both ears (Acute) Somnolence, daytime (Acute) Telangiectasia (Acute) Tinea pedis (Acute) Vaginal discharge (Acute) Vaginal yeast infection (Acute) Venous insufficiency (chronic) (peripheral) (Acute) Vitamin D deficiency (Acute) Thrombocytopenia (Chronic) Positive ARTEMIO (antinuclear antibody) (Chronic) Anxiety (Chronic) Renal cyst (Chronic ~08/28/13) Hypertension (Chronic) Asthma (Chronic) Breast cancer (Resolved ~1998) "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 [id number] Status post completion of radiation therapy 03/30/1998" On 10/07/14 16:50 Teresa Karimi wrote "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 [id number] Status post completion of radiation therapy 03/30/1998" Bilateral impacted cerumen (Resolved) Surgical History History of appendectomy History of cholecystectomy History of dilation and curettage History of mastectomy History of tonsillectomy and adenoidectomy Family History Aunt Breast cancer Mother Renal failure Unknown Diabetes Hypertension Son Malignant neoplasm of brain Social History Preferred Language: Mongolian Communication Ability: Effective Glassware Maker Required: No Beliefs That Will Affect Care: None Current Living Situation: Alone Other Information That Helps Us Care for You: No Feels Safe at Home: Yes Safety Concerns: Feels Safe At This Time Smoking Status: Former smoker Do You Dip or Chew Tobacco: No ; Second Hand Exposure: No ; Tobacco Cessation Education Requested by Patient: No Hx Alcohol Use: No Hx Substance Use: No Review of Systems Review of Systems: All systems reviewed & are unremarkable except as noted in HPI & below Physical Exam Constitutional: WD/WN, vitals as above well developed and + cachectic Eyes: PERRL, conjunctivae normal, anicteric sclerae ENMT: external ear and nose normal, oropharynx normal Neck: trachea midline, no thyromegaly Respiratory: normal respiratory effort, lungs clear to auscultation Cardiovascular: Rate/Rhythm: + irregularly irregular Heart Sounds: normal S1 and normal S2 Gastrointestinal (Abdomen): normal bowel sounds, soft, nontender, no hepatosplenomegaly Musculoskeletal: no cyanosis or clubbing, extremities motor strength 5/5 Skin: Bruise over the left knee and left periorbital/frontal scalp, some erythema over the right arm where her shingles a week ago in the process of healing, appears mostly wilma status post resolution of of the zoster. Neurologic: patellar DTR's 2+ bilat, sensation intact Psychiatric: A+Ox3, euthymic affect Lymphatic: no cervical or axillary lymphadenopathy Results & Data Vital Signs (Past 12 Hours) Vital Signs Temp Pulse Resp BP Pulse Ox 12/10/18 17:31 69 18 161/65 H 12/10/18 17:26 63 12 162/83 H 12/10/18 17:02 58 L 17 12/10/18 17:00 61 19 146/72 H 12/10/18 16:59 61 22 149/77 H 12/10/18 16:00 62 24 98 12/10/18 15:30 56 L 17 99 12/10/18 15:21 59 L 22 167/104 H 100 12/10/18 15:19 97 12/10/18 15:15 36.5 C 66 20 167/104 H 99 Code Status & VTE Plan Code Status Full code VTE Prophylaxis Plan VTE Prophylaxis will be ordered: Yes PG Care Time/CCT Total # of Minutes Spent Total Time Spent with Patient: Total time spent is greater than 50% in coordination of care (as documented) at patient's floor/unit and/or counseling patient: (1) Fall Encounter type: initial encounter Qualified Code(s): W19.XXXA - Unspecified fall, initial encounter
[2018-12-10] MEDS ORDERED: ESTRADIOL 10 MCG PV SCH (18:56)
[2018-12-10] MEDS ORDERED: ALBUTEROL HFA 8 GM INHALER INH PRN (18:56)
[2018-12-10] MEDS ORDERED: ZOLPIDEM TARTRATE 5 MG TAB PO PRN (18:56)
[2018-12-10] MEDS ORDERED: POLYETHYLENE (MIRALAX) 17 GM PACK PO PRN ×2 (18:56)
[2018-12-10] MEDS ORDERED: SODIUM CHLORIDE 0.65% NA SOLN 45 ML (OCEAN) NAE PRN (18:56)
[2018-12-10] MEDS ORDERED: MAGNESIUM HYDROXIDE SUSP 30 ML UDC PO PRN (18:56)
[2018-12-10] MEDS ORDERED: ALUMINUM/MAGNESIUM SUSP 30 ML UDC PO PRN (18:56)
[2018-12-10] MEDS ORDERED: ALPHA D GALACTOSIDASE PO PRN (18:56)
[2018-12-10] MEDS ORDERED: OXYCODONE/ACETAMINOPHEN 5mg/325mg TAB PO PRN (18:56)
[2018-12-10] MEDS ORDERED: hydrOXYzine HCl 10 MG TAB PO PRN (18:56)
[2018-12-10] MEDS ORDERED: QUETIAPINE FUMARATE 25 MG TABLET PO PRN (18:56)
[2018-12-10] MEDS ORDERED: ONDANSETRON INJ 2 MG/ML 2 ML VIAL IV PRN (18:56)
[2018-12-10] MEDS ORDERED: PIMECROLIMUS TOP PRN (18:56)
[2018-12-10] MEDS ORDERED: NON-FORMULARY MEDICATION (Coenzyme Q10 200 MG) PO SCH (18:56)
[2018-12-10] MEDS: BUDESONIDE 0.5 MG/2 ML VIAL (PULMICORT) INH SCH (19:23)
[2018-12-10] MEDS ORDERED: INFLUENZA ADMINISTRATION CHARGE ONE (19:30)
[2018-12-10] MEDS ORDERED: INFLUENZA VACCINE HIGH DOSE 65+ 0.5 ML SYR IM ONE (19:30)
[2018-12-10] MEDS ORDERED: OPTIRAY 320 125ml IV PRN (19:52)
[2018-12-10] MEDS: NSS + 20MEQ KCL 20 MEQ/1,000 ML BAG IV SCH (20:23)
[2018-12-10] MEDS: PANTOprazole 40 MG TAB PO SCH (20:25)
[2018-12-10] MEDS: CALCIUM 600MG + VIT D 400 IU TAB PO SCH (20:26)
[2018-12-10] MEDS: AMLODIPINE BESYLATE 5 MG TAB PO SCH (20:27)
[2018-12-10] MEDS: LIDOCAINE 4% CREAM 15 GM TUBE EXT SCH (20:29)
[2018-12-10] MEDS: CHOLECALCIFEROL 1,000 UNITS TAB PO SCH (20:30)
[2018-12-10] MEDS: ASCORBIC ACID 500 MG TAB PO SCH (20:30)
--- NOTE | 2018-12-10 20:31 | CT Scan Report ---
CT ANGIOGRAPHY OF THE NECK WITH CONTRAST CLINICAL HISTORY: near syncope COMPARISON STUDY: Cervical spine CT performed earlier today. Technique: CT angiography of the carotid and vertebral arteries was obtained using Mamaya 320 IV and 3D reconstruction on an independent workstation. NASCET criteria was utilized. Automated exposure c ontrol was utilized for the study. A dose lowering technique was utilized adhering to the principles of ALARA. Findings: Lung apices are clear. There is no cervical spine fracture. There is no cervical lymphadeno norma. There is mild atherosclerotic plaque within the proximal bilateral internal carotid arteries w ithout significant stenosis. The right vertebral artery is dominant and patent. There is mild stenosi s at the origin of the left vertebral artery which is suboptimally assessed due to motion. IMPRESSION: 1. Mild plaque within the proximal bilateral internal carotid arteries without significant stenosis. No dissection. 2. Dominant, patent right vertebral artery. 3. Mild stenosis at the origin of the left vertebral artery which is suboptimally assessed on this ex am. Electronically signed by: Rickey Monae M.D. 12/10/2018 8:30 PM
--- NOTE | 2018-12-10 20:36 | CT Scan Report ---
CTA ANGIOGRAPHY OF THE HEAD CLINICAL HISTORY: near syncope COMPARISON STUDY: Head CT November 29, 2018 and December 10, 2018. TECHNIQUE: Helical axial images of the head were obtained following uneventful intravenous administr ation of 118 cc of Optiray 320. Automated exposure control was utilized for the study. A dose lower ing technique was utilized adhering to the principles of ALARA. CT DOSE: 537.72 mGy.cm FINDINGS: The bilateral M1, M2, A1 and A2 segments are patent. The right vertebral artery is dominant and patent. The left vertebral artery is diminutive and likely hypoplastic. No abrupt vessel cut off is identified on this examination. There is moderate plaque within the bilateral cavernous carotids without severe stenosis. There is a tiny 2 mm aneurysm arising from the inferior aspect of the left s upraclinoid ICA which is of doubtful significance. No additional intracranial aneurysms are identifie d. No calvarial fracture is present. No acute hemorrhage is noted. Ventricular system is unremarkable . IMPRESSION: 1. No abrupt vessel cut off. 2. 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 This tiny aneurysm is of doubtful significance. 3. No high-grade stenosis within the major intracranial vessels. Electronically signed by: Rickey Monae M.D. 12/10/2018 8:34 PM
--- NOTE | 2018-12-10 22:13 | Emergency Department Note ---
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 Per the nursing staff, the patient was found on the floor by a process engineering technician after being on the ground for at least 2 hours. The nursing staff notes that she is confused. She complains of hitting her head during the fall. The patient complains of bilateral knee pain, stating that her left knee is in more pain. She complains of intermittent diarrhea for the past 3-4 days. The patient denies any nausea/vomiting. She notes that she lives alone. HPI limited secondary to mental state. Home Medications Home Medications Medication Instructions Recorded Confirmed Type acetaminophen 325 mg tablet 325 mg PO BID tab 07/23/18 12/10/18 History amlodipine 2.5 mg tablet 2.5 mg PO DAILY #30 tab 07/23/18 12/10/18 History calcium citrate 315 mg-vitamin D3 0.5 tab PO DAILY tab 07/23/18 12/10/18 History 250 unit tablet cholecalciferol (vitamin D3) 1,000 1,000 units PO DAILY cap 07/23/18 12/10/18 History unit capsule budesonide 0.5 mg/2 mL suspension 0.5 mg INHALATION Q12H #120 ml 09/24/18 12/10/18 Rx for nebulization coenzyme Q10 200 mg capsule 200 mg PO DAILY 09/24/18 12/10/18 History multivit with 1 tab PO DAILY 09/24/18 12/10/18 History qqspaodc-uqct-LT-lutein 8 mg iron-400 mcg-300 mcg tablet ascorbic acid (vitamin C) 250 mg 250 mg PO DAILY tab 10/30/18 12/10/18 History tablet cyanocobalamin (vit B-12) 100 mcg 100 mcg PO DAILY tab 10/30/18 12/10/18 History tablet fexofenadine 180 mg tablet 180 mg PO DAILY tab 10/30/18 12/10/18 History levothyroxine 50 mcg tablet 50 mcg PO Q2D #15 tab 10/30/18 12/10/18 History levothyroxine 75 mcg tablet 75 mcg PO Q2D #15 tab 10/30/18 12/10/18 History albuterol sulfate [Ventolin HFA] 2 puff INHALATION QID PRN 11/13/18 12/10/18 History estradiol [Yuvafem] 10 mcg VAGINAL 3XWK 11/13/18 12/10/18 History rivaroxaban 20 mg tablet 20 mg PO DAILY #90 tab 11/13/18 12/10/18 Rx arqvb-n-byzqzwrlcmjkh 150 unit 1 tab PO DAILY PRN tab 11/26/18 12/10/18 History tablet pantoprazole 40 mg tablet,delayed 40 mg PO BID #60 tab 11/26/18 12/10/18 History release lidocaine HCl 4 % topical cream 1 appln TOP DAILY #76.5 gm 11/28/18 12/10/18 Rx montelukast 10 mg tablet 10 mg PO DAILY 11/30/18 12/10/18 History pimecrolimus 1 % topical cream 1 applic TOPICAL BID PRN 11/30/18 12/10/18 History polyethylene glycol 3350 [Miralax] 8.5 gm PO DAILY PRN 12/10/18 12/10/18 History sodium chloride [Saline Nasal Mist] 1 spray INTNAS BID PRN 12/10/18 12/10/18 History Allergies Allergy/AdvReac Type Severity Reaction Status Date / Time cat dander Allergy Unknown ALLERGIES Verified 12/07/18 13:02 desloratadine Allergy Unknown Unknown Verified 12/10/18 19:03 house dust Allergy Unknown ALLERGIES Verified 12/10/18 19:03 mold Allergy Unknown Unknown Verified 12/10/18 19:03 Sulfa (Sulfonamide Allergy Unknown HIVES Verified 12/07/18 13:02 Antibiotics) amoxicillin AdvReac Mild GI SYMPTOMS Verified 12/10/18 19:03 atropine AdvReac Mild pain & Verified 12/07/18 13:02 diarrhea diphenoxylate AdvReac Mild pain & Verified 12/07/18 13:02 diarrhea moxifloxacin AdvReac Mild pain & Verified 12/07/18 13:02 diarrhea Cipro AdvReac Unknown GI SYMPTOMS Unverified 07/12/17 08:57 ciprofloxacin AdvReac Unknown GI SYMPTOMS Verified 12/07/18 13:02 clavulanic acid AdvReac Unknown GI SYMPTOMS Verified 12/07/18 13:02 erythromycin base AdvReac Unknown GI SYMPTOMS Verified 12/07/18 13:02 metronidazole AdvReac Unknown GI SYMPTOMS Verified 12/07/18 13:02 minocycline AdvReac Unknown GI SYMPTOMS Verified 12/07/18 13:02 Lscphfo-Goi-Uus Reductase AdvReac Unknown Unknown Verified 12/10/18 19:03 Inhibitor Past Med/Surg History Medical History Abnormal chest CT (Acute) Allergic rhinitis due to cats (Acute) Allergic rhinitis due to dust (Acute) Bloating (Acute) Chronic ITP (idiopathic thrombocytopenia) (Acute) Chronic constipation (Acute) Depression with anxiety (Acute) Dyslipidemia (Acute) Extrinsic asthma (Acute) Fatigue (Acute) Gastroparesis (Acute) Generalized anxiety disorder (Acute) History of esophageal reflux (Acute) Hypothyroidism (Acute) Impacted cerumen of left ear (Acute) Irritable bowel syndrome (Acute) Peripheral edema (Acute) Permanent atrial fibrillation (Acute) Rosacea (Acute) Sensorineural hearing loss (SNHL) of both ears (Acute) Somnolence, daytime (Acute) Telangiectasia (Acute) Tinea pedis (Acute) Vaginal discharge (Acute) Vaginal yeast infection (Acute) Venous insufficiency (chronic) (peripheral) (Acute) Vitamin D deficiency (Acute) Thrombocytopenia (Chronic) Positive ARTEMIO (antinuclear antibody) (Chronic) Anxiety (Chronic) Renal cyst (Chronic ~08/28/13) Hypertension (Chronic) Asthma (Chronic) Breast cancer (Resolved ~1998) "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 [id number] Status post completion of radiation therapy 03/30/1998" On 10/07/14 16:50 Teresa Karimi wrote "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 [id number] Status post completion of radiation therapy 03/30/1998" Bilateral impacted cerumen (Resolved) Surgical History History of appendectomy History of cholecystectomy History of dilation and curettage History of mastectomy History of tonsillectomy and adenoidectomy Family History Aunt Breast cancer Mother Renal failure Unknown Diabetes Hypertension Son Malignant neoplasm of brain Social History Preferred Language: Mongolian Communication Ability: Effective Communication Coordinator Required: No Beliefs That Will Affect Care: None Current Living Situation: Alone Feels Safe at Home: Yes Smoking Status: Former smoker Second Hand Exposure: No ; Hx Alcohol Use: No Hx Substance Use: No Review of Systems See HPI for pertinent positives & negatives. Other (ROS limited secondary to mental state.) Physical Exam Vital Signs Vital Signs - 24 hr 12/10/18 15:15 12/10/18 15:19 12/10/18 15:21 Temperature 36.5 C Temperature Source Oral Sepsis Recent Fever Within 48 Hours No Sepsis New/Unexplained Change in Mental Status No Sepsis Action Taken by Nursing No Action Required Pulse Rate 66 59 L Pulse Rate from SpO2 Sensor 61 Respiratory Rate 20 22 Respiratory Effort / Characteristics Non-Labored Spontaneous Respiratory Depth Normal Respiratory Pattern Regular Blood Pressure 167/104 H 167/104 H Blood Pressure Mean 125 125 Pulse Oximetry 99 97 100 Oxygen Delivery Method Room Air Room Air 12/10/18 15:30 12/10/18 16:00 12/10/18 16:59 Temperature Temperature Source Sepsis Recent Fever Within 48 Hours Sepsis New/Unexplained Change in Mental Status Sepsis Action Taken by Nursing Pulse Rate 56 L 62 61 Pulse Rate from SpO2 Sensor 61 61 Respiratory Rate 17 24 22 Respiratory Effort / Characteristics Respiratory Depth Respiratory Pattern Blood Pressure 149/77 H Blood Pressure Mean 101 Pulse Oximetry 99 98 Oxygen Delivery Method 12/10/18 17:00 12/10/18 17:02 12/10/18 17:26 Temperature Temperature Source Sepsis Recent Fever Within 48 Hours Sepsis New/Unexplained Change in Mental Status Sepsis Action Taken by Nursing Pulse Rate 61 58 L 63 Pulse Rate from SpO2 Sensor Respiratory Rate 19 17 12 Respiratory Effort / Characteristics Respiratory Depth Respiratory Pattern Blood Pressure 146/72 H 162/83 H Blood Pressure Mean 96 109 Pulse Oximetry Oxygen Delivery Method 12/10/18 17:31 Temperature Temperature Source Sepsis Recent Fever Within 48 Hours Sepsis New/Unexplained Change in Mental Status Sepsis Action Taken by Nursing Pulse Rate 69 Pulse Rate from SpO2 Sensor Respiratory Rate 18 Respiratory Effort / Characteristics Respiratory Depth Respiratory Pattern Blood Pressure 161/65 H Blood Pressure Mean 97 Pulse Oximetry Oxygen Delivery Method GENERAL: Patient is in no acute distress. HEENT: Forming hematoma around the lateral left eyebrow. No bony stepoff. Mucous membranes are dry. No facial contusion. No nasal congestion. NECK: No stridor, no adenopathy, trachea is midline. Nontender posterior C- spine. LUNGS: Clear to auscultation bilaterally, no wheeze, no rhonchi, breath sounds equal. HEART: Irregular rhythm, normal rate. No murmur. ABDOMEN: Soft, nontender, bowel sounds positive, no hernias, no peritonitis. EXTREMITIES: Pain with movement and palpation of both knees. No gross deformity. Contusion to the anterior left knee. No significant pedal edema. NEUROLOGIC: Confused, no slurred speech. Awake, moves all extremities. SKIN: No rash, no jaundice, no diaphoresis. Course 1514: The patient was evaluated in room B10. A complete history and physical exam was performed. I reviewed the patients EMR. Per the patients EMR, she was here on the 06 of november for a fall. She had a CT of the head and neck that were negative for acute findings. She was eventually discharged. Per her EMR, she is on Xarelto. 1644: I spoke with Dr. Savage, [facility] hospitalist, about the patients case. Dr. Savage with further evaluate the patient. Consultations Consultation #1: I spoke with Dr. Savage, [facility] hospitalist, about the patients case. Dr. Savage with further evaluate the patient. Time: 16:44 Administered Medications Amlodipine Besylate (Norvasc) 2.5 mg PO DAILY [facility] Stop: 01/09/19 18:55 Last Admin: 12/10/18 20:27 Dose: 2.5 mg Documented by: [id number] Ascorbic Acid (Vitamin C) 250 mg PO DAILY [facility] Stop: 01/09/19 18:55 Last Admin: 12/10/18 20:30 Dose: 250 mg Documented by: [id number] Budesonide (Pulmicort Respules) 0.5 mg INH Q12H [facility] Stop: 01/09/19 18:55 Last Admin: 12/10/18 19:23 Dose: 0.5 mg Documented by: [id number] Potassium Chloride/Sodium Chloride (Normal Saline W/20 Meq Kcl) 20 meq in 1,000 mls @ 80 mls/hr IV .[id number] [facility] Stop: 01/09/19 18:55 Last Admin: 12/10/18 20:23 Dose: 80 mls/hr Documented by: [id number] Ioversol (Optiray 320 125ml) 118 ml IV ONCE PRN PRN Reason: Interaction Checking Stop: 12/14/18 19:51 Last Admin: 12/10/18 19:53 Dose: 118 ml Documented by: [id number] Lidocaine (Anecream 4% Cream) 1 appln EXT HS [facility] Stop: 01/09/19 20:59 Last Admin: 12/10/18 20:29 Dose: 1 appln Documented by: [id number] Multivitamins/Minerals (Caltrate Plus) 0.5 tab PO DAILY [facility] Stop: 01/09/19 18:55 Last Admin: 12/10/18 20:26 Dose: 0.5 tab Documented by: [id number] Pantoprazole Sodium (Protonix) 40 mg PO BID [facility] Stop: 01/09/19 20:59 Last Admin: 12/10/18 20:25 Dose: 40 mg Documented by: [id number] Vitamin D (Vitamin D3) 1,000 units PO DAILY [facility] Stop: 01/09/19 18:55 Last Admin: 12/10/18 20:30 Dose: 1,000 units Documented by: [id number] Discontinued Medications Sodium Chloride (Nss) 500 mls @ 999 mls/hr IV .Q31M [facility] Stop: 12/10/18 16:00 Last Infusion: 12/10/18 16:25 Dose: 0 mls/hr Documented by: [id number] Admin: 12/10/18 15:54 Dose: 999 mls/hr Documented by: [id number] Potassium Chloride (K Tolu / Wtr) 10 meq in 100 mls @ 100 mls/hr IV ONE ONE Stop: 12/10/18 17:13 Last Infusion: 12/10/18 18:35 Dose: 0 mls/hr Documented by: [id number] Admin: 12/10/18 17:43 Dose: 100 mls/hr Documented by: [id number] Non-Formulary Medication (Coenzyme Q10) 200 mg PO DAILY [facility] Stop: 01/09/19 18:55 Last Admin: 12/10/18 21:29 Dose: Not Given Documented by: [id number] Medical Decision Making Differential Diagnosis The differential diagnosis includes: intracranial bleeding, stroke, dehydration, debilitation, dementia, anemia, electrolyte imbalance, UTI, cervical spine injury, and knee fracture. Medical Records Attestation: I reviewed the patient's medical records. Home Medications Current Medication List: was personally reviewed by me Laboratory Data Attestation: I reviewed the patient's lab results. Result diagrams: 12/10/18 15:30 12/10/18 15:30 Lab Results 12/10/18 12/10/18 12/10/18 Range/Units 15:30 15:30 15:30 WBC 7.27 (4.8-10.8) K/uL RBC 4.22 (4.2-5.4) M/uL Hgb 12.8 (12.0-16.0) g/dL Hct 38.2 (37-47) % MCV 90.5 (80-100) fL MCH 30.3 (25-34) pg MCHC 33.5 (32-36) g/dL RDW Std Deviation 52.8 H (36.4-46.3) fL RDW Coeff of Reina 16.2 H (11.5-14.5) % Plt Count 162 (130-400) K/uL MPV 9.7 (7.4-10.4) fL Immature Gran % (Auto) 0.3 % Neut % (Auto) 88.3 % Lymph % (Auto) 4.4 % Parker % (Auto) 6.9 % Eos % (Auto) 0.0 % Baso % (Auto) 0.1 % Immature Gran # (Auto) 0.02 (0.00-0.02) K/uL Neut # (Auto) 6.42 (1.4-6.5) K/uL Lymph # (Auto) 0.32 L (1.2-3.4) K/uL Parker # (Auto) 0.50 (0.11-0.59) K/uL Eos # (Auto) 0.00 (0-0.5) K/uL Baso # (Auto) 0.01 (0-0.2) K/uL Sodium 140 (136-145) mmol/L Potassium 3.0 L (3.5-5.1) mmol/L Chloride 104 (98-107) mmol/L Carbon Dioxide 22 (21-32) mmol/L Anion Gap 14.0 H (3-11) BUN 17 (7-18) mg/dl Creatinine 0.61 (0.6-1.2) mg/dl Est Cr Clr Drug Dosing 74.3 ml/min Est GFR ( Amer) 99.2 Est GFR (Non-Af Amer) 85.6 BUN/Creatinine Ratio 27.8 H (10-20) Glucose 113 H (70-99) mg/dl Calcium 9.3 (8.5-10.1) mg/dl Magnesium 1.9 (1.8-2.4) mg/dl Total Bilirubin 1.4 H (0.2-1) mg/dl AST 69 H (15-37) U/L ALT 41 (12-78) U/L Alkaline Phosphatase 84 (45-117) U/L Total Creatine Kinase 1684 H (26-192) U/L Troponin I < 0.015 (0-0.045) ng/ml NT-Pro-B Natriuret Pep 2231 H (0-1800) pg/ml Total Protein 7.9 (6.4-8.2) gm/dl Albumin 3.5 (3.4-5.0) gm/dl Globulin 4.4 H (2.5-4.0) gm/dl Albumin/Globulin Ratio 0.8 L (0.9-2) TSH 1.770 (0.300-4.500) uIu/ml Urine Color Urine Appearance (Clear) Urine pH (4.5-7.5) Ur Specific [place] (1.000-1.030) Urine Protein (Negative) Urine Glucose (UA) (Negative) Urine Ketones (Negative) Urine Blood (Negative) Urine Nitrite (Negative) Urine Bilirubin (Negative) Urine Urobilinogen (Negative) Ur Leukocyte Esterase (Negative) Urine WBC (Auto) (0-5) /hpf Urine RBC (Auto) (0-4) /hpf U Hyaline Cast (Auto) (0-5) /lpf U Epithel Cells (Auto) (0-5) /lpf Urine Bacteria (Auto) (Negative) 12/10/18 Range/Units 17:30 WBC (4.8-10.8) K/uL RBC (4.2-5.4) M/uL Hgb (12.0-16.0) g/dL Hct (37-47) % MCV (80-100) fL MCH (25-34) pg MCHC (32-36) g/dL RDW Std Deviation (36.4-46.3) fL RDW Coeff of Reina (11.5-14.5) % Plt Count (130-400) K/uL MPV (7.4-10.4) fL Immature Gran % (Auto) % Neut % (Auto) % Lymph % (Auto) % Parker % (Auto) % Eos % (Auto) % Baso % (Auto) % Immature Gran # (Auto) (0.00-0.02) K/uL Neut # (Auto) (1.4-6.5) K/uL Lymph # (Auto) (1.2-3.4) K/uL Parker # (Auto) (0.11-0.59) K/uL Eos # (Auto) (0-0.5) K/uL Baso # (Auto) (0-0.2) K/uL Sodium (136-145) mmol/L Potassium (3.5-5.1) mmol/L Chloride (98-107) mmol/L Carbon Dioxide (21-32) mmol/L Anion Gap (3-11) BUN (7-18) mg/dl Creatinine (0.6-1.2) mg/dl Est Cr Clr Drug Dosing ml/min Est GFR ( Amer) Est GFR (Non-Af Amer) BUN/Creatinine Ratio (10-20) Glucose (70-99) mg/dl Calcium (8.5-10.1) mg/dl Magnesium (1.8-2.4) mg/dl Total Bilirubin (0.2-1) mg/dl AST (15-37) U/L ALT (12-78) U/L Alkaline Phosphatase (45-117) U/L Total Creatine Kinase (26-192) U/L Troponin I (0-0.045) ng/ml NT-Pro-B Natriuret Pep (0-1800) pg/ml Total Protein (6.4-8.2) gm/dl Albumin (3.4-5.0) gm/dl Globulin (2.5-4.0) gm/dl Albumin/Globulin Ratio (0.9-2) TSH (0.300-4.500) uIu/ml Urine Color Dark Yellow Urine Appearance Clear (Clear) Urine pH 5.5 (4.5-7.5) Ur Specific [place] 1.026 (1.000-1.030) Urine Protein 2+ H (Negative) Urine Glucose (UA) Negative (Negative) Urine Ketones 1+ H (Negative) Urine Blood Trace H (Negative) Urine Nitrite Negative (Negative) Urine Bilirubin Negative (Negative) Urine Urobilinogen Negative (Negative) Ur Leukocyte Esterase Negative (Negative) Urine WBC (Auto) 0 (0-5) /hpf Urine RBC (Auto) 0-4 (0-4) /hpf U Hyaline Cast (Auto) 0 (0-5) /lpf U Epithel Cells (Auto) 20-30 H (0-5) /lpf Urine Bacteria (Auto) Negative (Negative) Imaging Data Radiologist's Impression: Radiology results as stated below per my review and the radiologist's interpretation: CT OF THE CERVICAL SPINE WITHOUT CONTRAST CLINICAL HISTORY: Fall. COMPARISON STUDY: Cervical spine CT December 07, 2018. TECHNIQUE: Helical axial images of the cervical spine were obtained without IV contrast. Sagittal and coronal reconstructions were viewed. Automated exposure control was utilized for the study. A dose lowering technique was utilized adhering to the principles of ALARA. FINDINGS: No cervical spine fracture is noted. Severe multilevel facet arthrosis is noted with moderate to severe multilevel degenerative disc disease. The appearance of the cervical spine is unchanged. There is no prevertebral edema. Craniocervical junction is intact. There are no suspicious osseous lesions. IMPRESSION: No acute cervical spine fracture or subluxation. Electronically signed by: Rickey Monae M.D. 12/10/2018 4:[address] head/brain wo con CLINICAL HISTORY: 78 years-old Female presenting with fall. TECHNIQUE: Multidetector CT imaging of the head was performed without the use of intravenous contrast. IV contrast: None. One or more dose lowering techniques were used consistent with the principles of ALARA (as low as reasonably achievable), including automatic exposure control, mA or kV adjustment to individual patient size, and/or use of iterative reconstruction. COMPARISON: 12/07/2018. CT DOSE (mGy.cm): The estimated cumulative dose is 876.12 mGy.cm. 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 Proportional ventricular and sulcal prominence, likely age-related parenchymal volume loss. No hemorrhage. Brain parenchyma normal in appearance with preserved whitney-white differentiation. No acute territorial infarct. No mass effect or midline shift. No extra-axial fluid collection. Paranasal sinuses and mastoid air cells clear. Calvarium intact. Soft tissue swelling and infiltration along the left periorbital/left frontal scalp with trace subcutaneous hematoma. IMPRESSION: 1. No acute intracranial abnormality. 2. Trace contusion and hematoma in the left periorbital/frontal scalp. No subjacent osseous injury. Electronically signed by: Andres Mackey M.D. 12/10/2018 4:22 PM XR chest 1V portable CLINICAL HISTORY: 78 years-old Female presenting with weakness. TECHNIQUE: Portable upright AP view of the chest was obtained. COMPARISON: 12/07/2018. FINDINGS: Atherosclerosis of the aortic arch. Cardiac silhouette enlarged. No focal opacity. No large effusion or pneumothorax. Degenerative changes of the thoracic spine. Osteopenia. Advanced degenerative changes of the glenohumeral joints. Surgical clips project over the right axilla. IMPRESSION: 1. Cardiomegaly. No other convincing evidence of acute cardiopulmonary disease. Electronically signed by: Andres Mackey M.D. 12/10/2018 3:49 PM XR knee RT 2V routine CLINICAL HISTORY: 78 years-old Female presenting with fall, pain. TECHNIQUE: Frontal and crosstable lateral views of the right knee were obtained. COMPARISON: 12/07/2018. FINDINGS: Knee joint congruent with moderate joint space loss medially and mild joint space loss laterally. Suspected chondrocalcinosis. Osteophytosis in all 3 compartments though most prominently in the medial compartment. The positioning of the patient on crosstable lateral view limits evaluation for joint effusion. Underlying osteopenia. No acute fracture or malalignment. Atherosclerosis. IMPRESSION: 1. Allowing for osteopenia and the degree of degenerative change. No acute osseous injury. 2. Tricompartmental degenerative changes most severe in the medial compartment. Electronically signed by: Andres Mackey M.D. 12/10/2018 3:50 PM XR knee LT 2V routine CLINICAL HISTORY: 78 years-old Female presenting with fall, pain. TECHNIQUE: Frontal and crosstable lateral views of the left knee were obtained. COMPARISON: 02/08/2015. FINDINGS: Knee joint congruent with severe medial joint space loss and mild lateral joint space loss. Chondrocalcinosis. Osteophytosis in all 3 compartments though most severe in the medial compartment, where there is also subchondral sclerosis and cystic change. Mild varus alignment at the knee joint as a result of the degenerative change. Positioning and crosstable lateral view limits evaluation for knee joint effusion. Underlying osteopenia. Calcification/ossification along the lateral femoral condyle may indicate prior LCL avulsion/injury. No acute fracture or malalignment. IMPRESSION: 1. Allowing for the degree of osteopenia and degenerative change, no acute osseous injury. 2. Severe tricompartmental degenerative changes most prominently in the medial compartment. Electronically signed by: Andres Mackey M.D. 12/10/2018 3:52 PM ECG Data Attestation: I personally reviewed and interpreted this ECG as follows: Indication: altered mental status Rate (beats per minute): 62 Rhythm: atrial fibrillation (with a PVC) Findings: + other (non specific ST change diffusely, QTC is 434, appears to be an old septal infarct); no ST elevation Comparison ECG Date: from (12/07/18) Change: no significant change Blood Pressure Blood Pressure Findings: Elevated blood pressure Blood Pressure Disposition: further management by hospitalist [facility] Narrative There is no leukocytosis or concerning anemia. No kidney failure. Potassium was low at 3. There were some subtle liver enzyme elevations, nothing of serious concern. Total CK was elevated consistent with some mild rhabdomyolysis. The patient appeared to be in a euthyroid state. Urinalysis suggested some dehydration, there was no infection. Brain CT showed no acute bleed or mass-effect. C-spine CT showed no acute fracture. Chest film did not show pneumonia or concerning CHF. EKG showed atrial fibrillation, no acute ischemia. Cardiac enzyme testing x1 was not consistent with acute cardiac injury. Bilateral knee films were done, arthritis was seen, no acute fractures. The patient presents with some confusion and weakness. She is living alone. This is her second fall in just a few days. She does not appear to have suffered any significant injury from the fall. The patient was given IV saline, she received IV potassium. Patient is not stable for discharge home. She requires further work-up in the hospital for her confusion and weakness. She requires hydration for the rhabdomyolysis. I did speak to the patient and case management. The on-call hospitalist was consulted. Impression & Plan Acute confusion, Fall, Dehydration, Rhabdomyolysis, Weakness Discharge Plan Visit Data *Final* Discharge Date/Time: 12/10/18 19:02 Chief Complaint: Fall Stated Complaint: FALL, CONFUSION ED Provider: David Fay Discharge Problem: Acute confusion, Fall, Dehydration, Rhabdomyolysis, Weakness Patient Disposition: Admitted As Inpatient Discharge Instructions Interventions: ED Discharge Assessment Last Done: 12/10/18 19:02 Discharge Problem: Fall Qualifiers: Encounter type: initial encounter Qualified Code(s): W19.XXXA - Unspecified fall, initial encounter Rhabdomyolysis Qualifiers: Rhabdomyolysis type: traumatic Encounter type: initial encounter Qualified Code(s): T79.6XXA - Traumatic ischemia of muscle, initial encounter The scribe's documentation has been prepared under my direction and personally reviewed by me in its entirety. I confirm that the note above accurately reflects all work, treatment, procedures, and medical decision making performed by me.
[2018-12-11] MEDS: LEVOTHYROXINE SODIUM 50 MCG TABLET PO SCH (05:58)
[2018-12-11 06:34] LABS: Basophils # (auto) 0.01 K/uL (0-0.2); Basophils % (auto) 0.2 %; Eosinophils # (auto) 0.01 K/uL (0-0.5); Eosinophils % (auto) 0.2 %; Hematocrit (blood only) 35.1 % (37-47); Hemoglobin 11.8 g/dL (12.0-16.0); Lymphocytes # (auto) 0.68 K/uL (1.2-3.4); Lymphocytes % (auto) 12.3 %; Mean Corpuscular Hemoglobin 30.8 pg (25-34); Mean Corpuscular Hgb Conc 33.6 g/dL (32-36); Mean Corpuscular Volume 91.6 fL (80-100); Mean Platelet Volume 9.8 fL (7.4-10.4); Monocytes # (auto) 0.52 K/uL (0.11-0.59); Monocytes % (auto) 9.4 %; Neutrophils # (auto) 4.32 K/uL (1.4-6.5); Neutrophils % (auto) 77.9 %; Platelet Count 152 K/uL (130-400); RDW Coefficient of Variation 16.3 % (11.5-14.5); RDW Standard Deviation 54.8 fL (36.4-46.3); Red Blood Count 3.83 M/uL (4.2-5.4); White Blood Count 5.54 K/uL (4.8-10.8)
[2018-12-11 06:37] LABS: Amphetamines+Metham, Urine Neg (Neg); Barbiturates, Urine Neg (Neg); Benzodiazepine, Urine Neg (Neg); Cocaine, Urine Neg (Neg); MDMA (Ecstacy), Urine Neg (Neg); Methadone, Urine Neg (Neg); Opiate, Urine Neg (Neg); Phencyclidine, Urine Neg (Neg)
[2018-12-11 07:03] LABS: Alanine Aminotransferase 40 U/L (12-78); Albumin Level 2.9 gm/dl (3.4-5.0); Aspartate Aminotransferase 61 U/L (15-37); BUN Creatinine Ratio 23.4 (10-20); Blood Urea Nitrogen 13 mg/dl (7-18); Calcium 8.7 mg/dl (8.5-10.1); Carbon Dioxide 24 mmol/L (21-32); Chloride 108 mmol/L (98-107); Cholesterol 187 mg/dl (0-200); Est GFR (African American) 103.9; Est GFR (Non-African American) 89.7; Glucose 91 mg/dl (70-99); Potassium 2.7 mmol/L (3.5-5.1); Sodium 141 mmol/L (136-145)
[2018-12-11 07:05] LABS: Estimated Average Glucose 120 mg/dl; Hemoglobin A1C 5.8 % (4.5-5.6)
[2018-12-11 07:11] LABS: Albumin Globulin Ratio 0.9 (0.9-2); Alkaline Phosphatase 88 U/L (45-117); Bilirubin,Total 1.4 mg/dl (0.2-1); Chol HDL Ratio 3; Creatine Kinase MB 23.7 ng/ml (0.5-3.6); Globulin 3.4 gm/dl (2.5-4.0); HDL Cholesterol 67 mg/dl; LDL Cholesterol Calculated 109 mg/dl; Total Protein 6.3 gm/dl (6.4-8.2); Triglycerides 55 mg/dl (0-150); VLDL Cholesterol 11 mg/dl
[2018-12-11] MEDS: BUDESONIDE 0.5 MG/2 ML VIAL (PULMICORT) INH SCH ×2 (07:12→19:21)
--- NOTE | 2018-12-11 07:26 | Ultrasound Report ---
US renal/blad retro comp CLINICAL HISTORY: 78 years-old Female presenting with hematuria. TECHNIQUE: Real-time grayscale and limited color Doppler ultrasound imaging of the kidneys and bladde r was performed. COMPARISON: CT from 06/01/2015 and ultrasound from 11/18/2013. FINDINGS: Right kidney: Normal echogenicity with preserved corticomedullary differentiation. Normal cortical th ickness. Right kidney measures 11.5 cm. Minimal pelviectasis. No hydronephrosis. Complex cyst in the interpolar region measuring 3.0 x 2.5 x 3.0 cm with peripheral calcification suggested as well as few septations. These complexities were evident on prior ultrasound from 11/18/2013. Left kidney: Normal echogenicity with preserved corticomedullary differentiation. Normal cortical thi ckness. Left kidney measures 11.7 cm. No hydronephrosis. No convincing evidence of calculus or mass. Bladder: Minimal debris suggested. Bladder wall thickening may be present circumferentially. Bilatera l ureteral jets not visualized. Other: None. IMPRESSION: 1. Circumferential bladder wall thickening suggests cystitis, likely infectious. Correlate with urin alysis. 2. No hydronephrosis. 3. Grossly stable minimally complex cyst in the right kidney (likely Bosniak 2). Electronically signed by: Andres Mackey M.D. 12/11/2018 7:25 AM
[2018-12-11] MEDS: CEROVITE ADV FORMULA TAB PO SCH (07:58)
[2018-12-11] MEDS: PANTOprazole 40 MG TAB PO SCH ×2 (07:58→20:30)
[2018-12-11] MEDS: MONTELUKAST SODIUM 10 MG TABLET PO SCH (07:58)
[2018-12-11] MEDS: AMLODIPINE BESYLATE 5 MG TAB PO SCH (07:58)
[2018-12-11] MEDS: ASCORBIC ACID 500 MG TAB PO SCH (07:59)
[2018-12-11] MEDS: CALCIUM 600MG + VIT D 400 IU TAB PO SCH (07:59)
[2018-12-11] MEDS: CHOLECALCIFEROL 1,000 UNITS TAB PO SCH (07:59)
[2018-12-11] MEDS: CYANOCOBALAMIN (VITAMIN B-12) 100 MCG TABLET PO SCH (07:59)
[2018-12-11] MEDS: FEXOFENADINE HCL 180 MG TAB PO SCH (07:59)
--- NOTE | 2018-12-11 09:29 | Cardiology Consultation ---
Date of Consultation December 11, 2018 Assessment & Plan (1) Fall: 2. Atrial fibrillation with pause 3. Gait instability/generalized weakness Patient was admitted after suffering two falls at home over the past week. She has evidence of atrial fibrillation with slow ventricular response at times and two pauses overnight (3.2 and 3.3 seconds). However per patient description falls seem more consistent with gait instability and weakness rather than cardiac etiology. No current indication for pacemaker with pauses occurring overnight and no clear correlation to symptoms. Recommend walking patient today and will reevaluate telemetry. Supervising Physician Co-Signing Physician Notes I saw and examined the patient at the bedside with Clara GUERRA. Briefly, the patient she suffered 2 falls recently. The circumstances in these events were similar and that she may have fallen asleep and slid out of a chair. A more recent episode involve some difficulty getting up off the ground and she was on the ground for a few hours. The patient does not feel that she lost consciousness but is somewhat unclear this event. She does not report symptoms of dizziness at other times. She has been known to have falls quite frequently before these episodes. While she does have atrial fibrillation of some slow heart rates at times, there is no clear correlation between bradycardia and these events. I do not believe she had true syncope. 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 This point, I think we should simply c ontinue monitoring her specially when ambulatory in active to see if her heart rate rises appropriately. History of Present Illness Attending Physician: Herson Santos MD History of Present Illness Patient is an 78 year old female with a medical history significant for pe rmanent atrial fibrillation, hypertension, chronic venous insufficiency, ITP, dyslipidemia. She is followed by Dr. Cantu. She was admitted yesterday after a fall at home. We were consulted for raheem granados of atrial fibrillation with multiple pauses overnight. Patient has a longstanding history of permanent atrial fibrillation and does not require rate control medications. She is chronically anticoagulated with Xarelto. She reports being prone to falling throughout her lifetime but recently has had more frequent falls. She was in the ED on 12/07/18 after a fall at home per reports the fall occurred while sleeping in a chair and she woke up suddenly and realized she was falling forward. The patient states she does not recall this fall. She gives a similar story when describing her fall yesterday. She was sitting in a chair in her kitchen and apparently fell asleep. She suddenly jolted awake and slid forward off the chair. She was unable to get herself up and laid on her floor for several hours until her neighbor found her. She is fairly certain she did not lose consciousness at any point. She lives alone and remains somewhat independent. She is able to prepare her own meals, dress and bath herself. She has someone who helps her with housework. She uses a walker due to instability. She reports knee pain limits her activity. She also has had significant pain due to shingles involving her right arm. She denies lightheadedness or dizziness with ambulation. She is able to get up during the night and use the restroom without any significant lightheadedness. Does mention her head feels funny occasionally which she has attributed to her sinuses. No chest pain, shortness of breath, orthopnea or PND. She has chronic mild lower extremity edema and uses compression stockings. No abnormal bleeding. Allergies Allergy/AdvReac Type Severity Reaction Status Date / Time cat dander Allergy Unknown ALLERGIES Verified 12/07/18 13:02 desloratadine Allergy Unknown Unknown Verified 12/10/18 19:03 house dust Allergy Unknown ALLERGIES Verified 12/10/18 19:03 mold Allergy Unknown Unknown Verified 12/10/18 19:03 Sulfa (Sulfonamide Allergy Unknown HIVES Verified 12/07/18 13:02 Antibiotics) amoxicillin AdvReac Mild GI SYMPTOMS Verified 12/10/18 19:03 atropine AdvReac Mild pain & Verified 12/07/18 13:02 diarrhea diphenoxylate AdvReac Mild pain & Verified 12/07/18 13:02 diarrhea moxifloxacin AdvReac Mild pain & Verified 12/07/18 13:02 diarrhea Cipro AdvReac Unknown GI SYMPTOMS Unverified 07/12/17 08:57 ciprofloxacin AdvReac Unknown GI SYMPTOMS Verified 12/07/18 13:02 clavulanic acid AdvReac Unknown GI SYMPTOMS Verified 12/07/18 13:02 erythromycin base AdvReac Unknown GI SYMPTOMS Verified 12/07/18 13:02 metronidazole AdvReac Unknown GI SYMPTOMS Verified 12/07/18 13:02 minocycline AdvReac Unknown GI SYMPTOMS Verified 12/07/18 13:02 [id number] Reductase AdvReac Unknown Unknown Verified 12/10/18 19:03 Inhibitor Home Medications Home Medications Medication Instructions Recorded Confirmed Type acetaminophen 325 mg tablet 325 mg PO BID tab 07/23/18 12/10/18 History amlodipine 2.5 mg tablet 2.5 mg PO DAILY #30 tab 07/23/18 12/10/18 History calcium citrate 315 mg-vitamin D3 0.5 tab PO DAILY tab 07/23/18 12/10/18 History 250 unit tablet cholecalciferol (vitamin D3) 1,000 1,000 units PO DAILY cap 07/23/18 12/10/18 History unit capsule budesonide 0.5 mg/2 mL suspension 0.5 mg INHALATION Q12H #120 ml 09/24/18 12/10/18 Rx for nebulization coenzyme Q10 200 mg capsule 200 mg PO DAILY 09/24/18 12/10/18 History multivit with 1 tab PO DAILY 09/24/18 12/10/18 History otycbivp-xmkv-JM-lutein 8 mg iron-400 mcg-300 mcg tablet ascorbic acid (vitamin C) 250 mg 250 mg PO DAILY tab 10/30/18 12/10/18 History tablet cyanocobalamin (vit B-12) 100 mcg 100 mcg PO DAILY tab 10/30/18 12/10/18 History tablet fexofenadine 180 mg tablet 180 mg PO DAILY tab 10/30/18 12/10/18 History levothyroxine 50 mcg tablet 50 mcg PO Q2D #15 tab 10/30/18 12/10/18 History levothyroxine 75 mcg tablet 75 mcg PO Q2D #15 tab 10/30/18 12/10/18 History albuterol sulfate [Ventolin HFA] 2 puff INHALATION QID PRN 11/13/18 12/10/18 History estradiol [Yuvafem] 10 mcg VAGINAL 3XWK 11/13/18 12/10/18 History rivaroxaban 20 mg tablet 20 mg PO DAILY #90 tab 11/13/18 12/10/18 Rx owhhm-c-vbdwjstdsrizn 150 unit 1 tab PO DAILY PRN tab 11/26/18 12/10/18 History tablet pantoprazole 40 mg tablet,delayed 40 mg PO BID #60 tab 11/26/18 12/10/18 History release lidocaine HCl 4 % topical cream 1 appln TOP DAILY #76.5 gm 11/28/18 12/10/18 Rx montelukast 10 mg tablet 10 mg PO DAILY 11/30/18 12/10/18 History pimecrolimus 1 % topical cream 1 applic TOPICAL BID PRN 11/30/18 12/10/18 History polyethylene glycol 3350 [Miralax] 8.5 gm PO DAILY PRN 12/10/18 12/10/18 History sodium chloride [Saline Nasal Mist] 1 spray INTNAS BID PRN 12/10/18 12/10/18 History Patient History Medical History Abnormal chest CT (Acute) Allergic rhinitis due to cats (Acute) Allergic rhinitis due to dust (Acute) Bloating (Acute) Chronic ITP (idiopathic thrombocytopenia) (Acute) Chronic constipation (Acute) Depression with anxiety (Acute) Dyslipidemia (Acute) Extrinsic asthma (Acute) Fatigue (Acute) Gastroparesis (Acute) Generalized anxiety disorder (Acute) History of esophageal reflux (Acute) Hypothyroidism (Acute) Impacted cerumen of left ear (Acute) Irritable bowel syndrome (Acute) Peripheral edema (Acute) Permanent atrial fibrillation (Acute) Rosacea (Acute) Sensorineural hearing loss (SNHL) of both ears (Acute) Somnolence, daytime (Acute) Telangiectasia (Acute) Tinea pedis (Acute) Vaginal discharge (Acute) Vaginal yeast infection (Acute) Venous insufficiency (chronic) (peripheral) (Acute) Vitamin D deficiency (Acute) Thrombocytopenia (Chronic) Positive ARTEMIO (antinuclear antibody) (Chronic) Anxiety (Chronic) Renal cyst (Chronic ~08/28/13) Hypertension (Chronic) Asthma (Chronic) Breast cancer (Resolved ~1998) "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 [id number] Status post completion of radiation therapy 03/30/1998" On 10/07/14 16:50 Teresa Karimi wrote "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 [id number] Status post completion of radiation therapy 03/30/1998" Bilateral impacted cerumen (Resolved) Surgical History History of appendectomy History of cholecystectomy History of dilation and curettage History of mastectomy History of tonsillectomy and adenoidectomy Family History Aunt Breast cancer Mother Renal failure Unknown Diabetes Hypertension Son Malignant neoplasm of brain Social History Preferred Language: Belgian Communication Ability: Effective Medical Engineer Required: No Beliefs That Will Affect Care: None Current Living Situation: Alone Feels Safe at Home: Yes Smoking Status: Former smoker Second Hand Exposure: No ; Hx Alcohol Use: No Hx Substance Use: No Review of Systems Review of Systems: All systems reviewed & are unremarkable except as noted in HPI & below Physical Exam Physical Exam: General: No acute distress, comfortable. HEENT: Head is normal. PERRLA. EOMI. Sclerae anicteric. Ears, nose and throat unremarkable. Mucous membranes moist. Neck: Normal carotid upstrokes, no bruits. No appreciable JVD. Lungs: Clear to auscultation bilaterally without rales, rhonchi or wheezes. Cardiac: Irregularly irregular. S1-S2 normal. No appreciable murmur, gallop or rub. Abdomen: Soft and nontender. Bowel sounds normal. No mass or organomegaly. No abdominal bruit. Extremities/vascular: Well perfused. 1+ pretibial edema bilaterally Radial, DP and PT pulses 2+ bilaterally Skin: Resolving vesicular rash right arm Neurologic: No focal deficits. Global weakness. Psychiatric: Affect appropriate. Alert and oriented. Results & Data Vital Signs (Past 12 Hours) Vital Signs Temp Pulse Pulse Resp BP Pulse Ox 12/11/18 08:00 53 L 12/11/18 07:12 55 L 16 97 12/11/18 02:58 50 L 17 136/61 95 12/10/18 23:22 36.5 C 59 L 15 145/66 H 96 Laboratory Results Laboratory Results - last 24 hr 12/10/18 12/10/18 12/10/18 15:30 15:30 15:30 WBC 7.27 RBC 4.22 Hgb 12.8 Hct 38.2 MCV 90.5 MCH 30.3 MCHC 33.5 RDW Std Deviation 52.8 H RDW Coeff of Reina 16.2 H Plt Count 162 MPV 9.7 Immature Gran % (Auto) 0.3 Neut % (Auto) 88.3 Lymph % (Auto) 4.4 [place] % (Auto) 6.9 Eos % (Auto) 0.0 Baso % (Auto) 0.1 Immature Gran # (Auto) 0.02 Neut # (Auto) 6.42 Lymph # (Auto) 0.32 L [place] # (Auto) 0.50 Eos # (Auto) 0.00 Baso # (Auto) 0.01 Sodium 140 Potassium 3.0 L Chloride 104 Carbon Dioxide 22 Anion Gap 14.0 H BUN 17 Creatinine 0.61 Est Cr Clr Drug Dosing 74.3 Est GFR ( Amer) 99.2 Est GFR (Non-Af Amer) 85.6 BUN/Creatinine Ratio 27.8 H Glucose 113 H Estimat Average Glucose Hemoglobin A1c Calcium 9.3 Magnesium 1.9 Total Bilirubin 1.4 H AST 69 H ALT 41 Alkaline Phosphatase 84 Total Creatine Kinase 1684 H CK-MB (CK-2) Troponin I < 0.015 NT-Pro-B Natriuret Pep 2231 H Total Protein 7.9 Albumin 3.5 Globulin 4.4 H Albumin/Globulin Ratio 0.8 L Triglycerides Cholesterol LDL Cholesterol, Calc VLDL Cholesterol, Calc HDL Cholesterol Cholesterol/HDL Ratio TSH 1.770 Urine Color Urine Appearance Urine pH Ur Specific [place] Urine Protein Urine Glucose (UA) Urine Ketones Urine Blood Urine Nitrite Urine Bilirubin Urine Urobilinogen Ur Leukocyte Esterase Urine WBC (Auto) Urine RBC (Auto) U Hyaline Cast (Auto) U Epithel Cells (Auto) Urine Bacteria (Auto) Urine Opiates Screen Ur Methadone, Qual Urine Barbiturates Ur Phencyclidine (PCP) U Amphetamin/Meth Scrn MDMA (Ecstasy) Screen U Benzodiazepines Scrn Ur Cocaine Metabolite U Marijuana (THC) Screen 12/10/18 12/11/18 12/11/18 17:30 05:45 06:20 WBC 5.54 RBC 3.83 L Hgb 11.8 L Hct 35.1 L MCV 91.6 MCH 30.8 MCHC 33.6 RDW Std Deviation 54.8 H RDW Coeff of Reina 16.3 H Plt Count 152 MPV 9.8 Immature Gran % (Auto) 0.0 Neut % (Auto) 77.9 Lymph % (Auto) 12.3 [place] % (Auto) 9.4 Eos % (Auto) 0.2 Baso % (Auto) 0.2 Immature Gran # (Auto) 0.00 Neut # (Auto) 4.32 Lymph # (Auto) 0.68 L [place] # (Auto) 0.52 Eos # (Auto) 0.01 Baso # (Auto) 0.01 Sodium Potassium Chloride Carbon Dioxide Anion Gap BUN Creatinine Est Cr Clr Drug Dosing Est GFR ( Amer) Est GFR (Non-Af Amer) BUN/Creatinine Ratio Glucose Estimat Average Glucose Hemoglobin A1c Calcium Magnesium Total Bilirubin AST ALT Alkaline Phosphatase Total Creatine Kinase CK-MB (CK-2) Troponin I NT-Pro-B Natriuret Pep Total Protein Albumin Globulin Albumin/Globulin Ratio Triglycerides Cholesterol LDL Cholesterol, Calc VLDL Cholesterol, Calc HDL Cholesterol Cholesterol/HDL Ratio TSH Urine Color Dark Yellow Urine Appearance Clear Urine pH 5.5 Ur Specific [place] 1.026 Urine Protein 2+ H Urine Glucose (UA) Negative Urine Ketones 1+ H Urine Blood Trace H Urine Nitrite Negative Urine Bilirubin Negative Urine Urobilinogen Negative Ur Leukocyte Esterase Negative Urine WBC (Auto) 0 Urine RBC (Auto) 0-4 U Hyaline Cast (Auto) 0 U Epithel Cells (Auto) 20-30 H Urine Bacteria (Auto) Negative Urine Opiates Screen Neg Ur Methadone, Qual Neg Urine Barbiturates Neg Ur Phencyclidine (PCP) Neg U Amphetamin/Meth Scrn Neg MDMA (Ecstasy) Screen Neg U Benzodiazepines Scrn Neg Ur Cocaine Metabolite Neg U Marijuana (THC) Screen Neg 12/11/18 12/11/18 06:20 06:20 WBC RBC Hgb Hct MCV MCH MCHC RDW Std Deviation RDW Coeff of Reina Plt Count MPV Immature Gran % (Auto) Neut % (Auto) Lymph % (Auto) [place] % (Auto) Eos % (Auto) Baso % (Auto) Immature Gran # (Auto) Neut # (Auto) Lymph # (Auto) [place]ie # (Auto) Eos # (Auto) Baso # (Auto) Sodium 141 Potassium 2.7 L Chloride 108 H Carbon Dioxide 24 Anion Gap 9.0 BUN 13 Creatinine 0.53 L Est Cr Clr Drug Dosing 86.0 Est GFR ( Amer) 103.9 Est GFR (Non-Af Amer) 89.7 BUN/Creatinine Ratio 23.4 H Glucose 91 Estimat Average Glucose 120 Hemoglobin A1c 5.8 H Calcium 8.7 Magnesium Total Bilirubin 1.4 H AST 61 H ALT 40 Alkaline Phosphatase 88 Total Creatine Kinase CK-MB (CK-2) 23.7 H Troponin I NT-Pro-B Natriuret Pep Total Protein 6.3 L D Albumin 2.9 L Globulin 3.4 Albumin/Globulin Ratio 0.9 Triglycerides 55 Cholesterol 187 LDL Cholesterol, Calc 109 VLDL Cholesterol, Calc 11 HDL Cholesterol 67 Cholesterol/HDL Ratio 3 TSH Urine Color Urine Appearance Urine pH Ur Specific [place] Urine Protein Urine Glucose (UA) Urine Ketones Urine Blood Urine Nitrite Urine Bilirubin Urine Urobilinogen Ur Leukocyte Esterase Urine WBC (Auto) Urine RBC (Auto) U Hyaline Cast (Auto) U Epithel Cells (Auto) Urine Bacteria (Auto) Urine Opiates Screen Ur Methadone, Qual Urine Barbiturates Ur Phencyclidine (PCP) U Amphetamin/Meth Scrn MDMA (Ecstasy) Screen U Benzodiazepines Scrn Ur Cocaine Metabolite U Marijuana (THC) Screen ECG Additional Comments: EKG atrial fibrillation with PVC or aberrantly conducted complexes. left axis deviation. Incomplete RBBB. Anteroseptal infarct. Nonspecific T wave abnormality. Tele reviewed-- Atrial fibrillation with rates into the 40s especially overnight. Two pauses around 12 and 1 am, 3.2 and 3.3 seconds in duration. PG Care Time/CCT Total # of Minutes Spent Total Time Spent with Patient: Total time spent is greater than 50% in coordination of care (as documented) at patient's floor/unit and/or counseling patient: (1) Fall Encounter type: initial encounter Qualified Code(s): W19.XXXA - Unspecified fall, initial encounter
[2018-12-11] MEDS: RIVAROXABAN 20 MG TAB PO SCH (09:30)
[2018-12-11] MEDS: NSS + 20MEQ KCL 20 MEQ/1,000 ML BAG IV SCH ×2 (09:30→20:28)
[2018-12-11] MEDS: ACETAMINOPHEN 325 MG TAB PO PRN ×2 (11:17→20:27)
--- NOTE | 2018-12-11 16:26 | Hospitalist Progress Note ---
Date of Service December 11, 2018 Assessment & Plan (1) Near syncope: Her story does not give a clear cause. She seems to more be falling asleep and not being able to catch herself as she falls rather than actually passing out. Possibly due to bradycardia, but seen by cardiology with thought that this was not as likely and we were just seeing natural sinus pauses. - Possibly due to weakness and inability to catch herself - Monitor on telemetry - Given focal weakness on the right side, consider MRI lumbar spine - Replete potassium (2) Fall: As above, PT OT (3) Hypertension: BP is 145/60. - Continue home amlodipine (4) Afib: EKG shows afib which is long-standing with slow ventricular response. - Continue Xarelto - No need for rate-control (5) Generalized anxiety disorder: Has a somewhat anxious affect. - Patient does not have lorazepam on her list even though she says she takes it occasionally. - Hydroxyzine PRN (6) Rhabdomyolysis: Traumatic Rhabdomyolysis in setting of fall and prolonged downtime. - IV fluids (7) Irritable bowel syndrome: Has IBS with some chronic constipation. Had a looser BM on 12/11. - Continue home meds polyethylene glycol (8) Chronic ITP (idiopathic thrombocytopenia): Notes indicate history of ITP; however, platelets recently have been normal. - Monitor (9) Asthma: No shortness of breath today. - Continue home budesonide, montelukast, and fexofenadine - DuoNebs PRN (10) DVT prophylaxis: Xarelto for afib Subjective Still feels weak today. Particularly right leg. This is concerning as she reports that it is worse than yesterday. Review of Systems Review of Systems: All systems reviewed & are unremarkable except as noted in HPI & below Physical Exam Constitutional: WD/WN, vitals as above Eyes: EOM intact bilaterally; no conjunctival abnormality ENMT: external ear and nose normal, oropharynx normal Neck: trachea midline, no thyromegaly normal visual inspection Respiratory: normal respiratory effort, lungs clear to auscultation no respiratory distress Cardiovascular: RRR, no murmur, no edema Gastrointestinal (Abdomen): Inspection/Auscultation: abdomen normal to inspection; abdomen not distended Musculoskeletal: no cyanosis or clubbing, extremities motor strength 5/5 Skin: no rashes, warm and dry Neurologic: moves all extremities (Right leg is slightly weaker than left in elevation (hip flexion) 3+/5. ) and awake Psychiatric: Orientation: alert, oriented to person and cooperative Results & Data Vital Signs (Past 12 Hours) Vital Signs Temp Pulse Pulse Resp BP Pulse Ox 12/11/18 15:11 36.8 C 59 L 20 145/58 H 95 12/11/18 10:46 36.7 C 62 17 133/64 97 12/11/18 08:00 53 L 12/11/18 07:12 55 L 16 97 PG Care Time/CCT Total # of Minutes Spent Total Time Spent with Patient: Total time spent is greater than 50% in coordination of care (as documented) at patient's floor/unit and/or counseling patient: (1) Rhabdomyolysis Encounter type: initial encounter Rhabdomyolysis type: traumatic Qualified Code(s): T79.6XXA - Traumatic ischemia of muscle, initial encounter (2) Fall Encounter type: initial encounter Qualified Code(s): W19.XXXA - Unspecified fall, initial encounter
--- NOTE | 2018-12-11 17:59 | Magnetic Resonance Report ---
MRI OF THE LUMBAR SPINE WITHOUT CONTRAST CLINICAL HISTORY: Worsening right lower extremity weakness. COMPARISON STUDY: No previous studies for comparison. TECHNIQUE: Utilizing a 1.5 Paula magnet and dedicated coil, multiplanar, multiecho imaging of the [facility] spine was performed without IV contrast. FINDINGS: For purposes of numbering on this exam, the L5-S1 disc space is assigned to axial image 23 of 25. The re is mild levoscoliosis of the lumbar spine. Note is made of a 7 mm of anterolisthesis of L4 and L5. There is slight loss of height of the superior endplate of L3 with minimal increased T2 marrow signa l. No intracanalicular mass or fluid collection is present. The conus terminates at the L1-L2 level. Several right renal cysts are better depicted on prior ultrasound. L1-2: There is disc space narrowing with disc bulge and facet arthrosis. The central canal and neural foramen are patent. L2-3: There is disc space narrowing with facet arthrosis and ligamentous hypertrophy. The central can al is patent. There is mild bilateral neural foraminal narrowing. L3-4: There is disc space narrowing with ligamentous hypertrophy and facet arthrosis. The central can al and left neural foramen are patent. There is mild narrowing of the right neural foramen. L4-5: There is grade one anterolisthesis with uncovering of the disc, facet arthrosis and ligamentous hypertrophy. There is mild to moderate central canal and left lateral recess narrowing. L5-S1: The central canal and neural foramen are patent. There are facet arthrosis. IMPRESSION: 1. Slight loss of height of the superior endplate of L3. This favors a mild subacute compression frac ture. No retropulsion. 2. Grade one anterolisthesis of L4 and L5 with uncovering of the disc, ligamentous hypertrophy and fa cet arthrosis. Mild to moderate central canal stenosis at this level. Otherwise, patent central canal . 3. Mild levoscoliosis of the lumbar spine. Electronically signed by: Rickey Monea M.D. 12/11/2018 5:58 PM
[2018-12-11] MEDS: LIDOCAINE 4% CREAM 15 GM TUBE EXT SCH (20:30)
[2018-12-12] MEDS: ACETAMINOPHEN 325 MG TAB PO PRN ×2 (02:48→10:02)
[2018-12-12] MEDS: LEVOTHYROXINE SODIUM 75 MCG TABLET PO SCH (07:16)
[2018-12-12 07:21] LABS: Basophils # (auto) 0.01 K/uL (0-0.2); Basophils % (auto) 0.2 %; Eosinophils # (auto) 0.02 K/uL (0-0.5); Eosinophils % (auto) 0.3 %; Hematocrit (blood only) 33.6 % (37-47); Hemoglobin 11.3 g/dL (12.0-16.0); Immature Granulocytes # (auto) 0.01 K/uL (0.00-0.02); Immature Granulocytes % (auto) 0.2 %; Lymphocytes # (auto) 0.87 K/uL (1.2-3.4); Lymphocytes % (auto) 13.3 %; Mean Corpuscular Hemoglobin 30.2 pg (25-34); Mean Corpuscular Hgb Conc 33.6 g/dL (32-36); Mean Corpuscular Volume 89.8 fL (80-100); Mean Platelet Volume 10.3 fL (7.4-10.4); Monocytes # (auto) 0.82 K/uL (0.11-0.59); Monocytes % (auto) 12.5 %; Neutrophils # (auto) 4.82 K/uL (1.4-6.5); Neutrophils % (auto) 73.5 %; Platelet Count 157 K/uL (130-400); RDW Coefficient of Variation 16.4 % (11.5-14.5); RDW Standard Deviation 53.2 fL (36.4-46.3); Red Blood Count 3.74 M/uL (4.2-5.4); White Blood Count 6.55 K/uL (4.8-10.8)
[2018-12-12] MEDS: BUDESONIDE 0.5 MG/2 ML VIAL (PULMICORT) INH SCH ×2 (07:22→19:11)
[2018-12-12 08:02] LABS: Alanine Aminotransferase 46 U/L (12-78); Albumin Globulin Ratio 0.8 (0.9-2); Albumin Level 2.9 gm/dl (3.4-5.0); Alkaline Phosphatase 86 U/L (45-117); BUN Creatinine Ratio 17.5 (10-20); Blood Urea Nitrogen 9 mg/dl (7-18); Calcium 8.5 mg/dl (8.5-10.1); Carbon Dioxide 25 mmol/L (21-32); Chloride 106 mmol/L (98-107); Creatine Kinase MB 13.5 ng/ml (0.5-3.6); Creatinine Clr Calc Pharmacy 91.9 ml/min; Est GFR (African American) 105.9; Est GFR (Non-African American) 91.4; Globulin 3.7 gm/dl (2.5-4.0); Glucose 111 mg/dl (70-99); Sodium 139 mmol/L (136-145); Total Protein 6.6 gm/dl (6.4-8.2)
[2018-12-12 08:42] LABS: Potassium 2.7 mmol/L (3.5-5.1)
[2018-12-12 08:47] LABS: Magnesium 1.4 mg/dl (1.8-2.4)
[2018-12-12] MEDS ORDERED: POTASSIUM CHLORIDE 40 MEQ in SODIUM CHLORIDE 0.9% 1000ML 500 ML IV ONE (09:26)
[2018-12-12] MEDS: MAGNESIUM SULFATE / D5W 1 GM/100 ML BAG IV SCH ×4 (10:03→13:59)
[2018-12-12] MEDS: ASCORBIC ACID 500 MG TAB PO SCH (10:41)
[2018-12-12] MEDS: CEROVITE ADV FORMULA TAB PO SCH (10:41)
[2018-12-12] MEDS: AMLODIPINE BESYLATE 5 MG TAB PO SCH (10:41)
[2018-12-12] MEDS: CALCIUM 600MG + VIT D 400 IU TAB PO SCH (10:41)
[2018-12-12] MEDS: PANTOprazole 40 MG TAB PO SCH ×2 (10:41→21:33)
[2018-12-12] MEDS: CHOLECALCIFEROL 1,000 UNITS TAB PO SCH (10:42)
[2018-12-12] MEDS: MONTELUKAST SODIUM 10 MG TABLET PO SCH (10:42)
[2018-12-12] MEDS: CYANOCOBALAMIN (VITAMIN B-12) 100 MCG TABLET PO SCH (10:42)
[2018-12-12] MEDS: FEXOFENADINE HCL 180 MG TAB PO SCH (10:42)
[2018-12-12] MEDS: RIVAROXABAN 20 MG TAB PO SCH (10:42)
[2018-12-12] MEDS: POTASSIUM CHLORIDE 20 MEQ/15 ML UDC PO SCH ×2 (10:42→21:33)
--- NOTE | 2018-12-12 15:05 | Hospitalist Progress Note ---
Date of Service December 12, 2018 Assessment & Plan (1) Near syncope: Her story does not give a clear cause. She seems to more be falling asleep and not being able to catch herself as she falls rather than actually passing out. Possibly due to bradycardia, but seen by cardiology with thought that this was not as likely and we were just seeing natural sinus pauses. MRI lumbar spine on 12/11 showed mild subacute compression fracture at L3 and mild to moderate central canal stenosis at L4/L5, but was otherwise non-acute. - Possibly due to weakness and inability to catch herself - Monitor on telemetry - Replete potassium & magnesium (2) Fall: As above, PT OT - Endurance is poor (3) Hypertension: BP is 155/60. Overall controlled. - Continue home amlodipine 2.5mg (4) Afib: EKG shows afib which is long-standing with slow to normal ventricular response. - Continue Xarelto - No need for rate-control (5) Generalized anxiety disorder: Has a somewhat anxious affect. Per son, has had life-long issues with anxiety. - Patient does not have lorazepam on her list even though she says she takes it occasionally. - Hydroxyzine PRN (6) Rhabdomyolysis: Traumatic rhabdomyolysis in setting of fall and prolonged downtime. Resolved quickly. - IV fluids (7) Irritable bowel syndrome: Has IBS with some chronic constipation. Had a looser BM on 12/11. - Continue home meds polyethylene glycol (8) Chronic ITP (idiopathic thrombocytopenia): Notes indicate history of ITP; however, platelets recently have been normal. - Still normal on 12/12. No bleeding. - Monitor (9) Asthma: No shortness of breath today. - Continue home budesonide, montelukast, and fexofenadine - DuoNebs PRN (10) DVT prophylaxis: Xarelto for afib Subjective Reports right knee pain that has been ongoing for years, but is worse today due to being stuck in bed. Review of Systems Review of Systems: All systems reviewed & are unremarkable except as noted in HPI & below Physical Exam Constitutional: WD/WN, vitals as above Eyes: EOM intact bilaterally; no conjunctival abnormality ENMT: external ear and nose normal, oropharynx normal Neck: trachea midline, no thyromegaly normal visual inspection Respiratory: normal respiratory effort, lungs clear to auscultation no respiratory distress Cardiovascular: RRR, no murmur, no edema Gastrointestinal (Abdomen): Inspection/Auscultation: abdomen normal to inspection; abdomen not distended Musculoskeletal: no cyanosis or clubbing, extremities motor strength 5/5 Skin: no rashes, warm and dry Neurologic: moves all extremities (Right leg is slightly weaker than left in elevation (hip flexion) 4/5. ) and awake Psychiatric: Orientation: alert, oriented to person and cooperative Results & Data Vital Signs (Past 12 Hours) Vital Signs Temp Pulse Pulse Resp BP Pulse Ox 12/12/18 11:59 36.5 C 73 18 153/62 H 97 12/12/18 09:00 56 L 12/12/18 07:24 74 16 95 12/12/18 07:17 36.9 C 69 17 147/67 H 96 PG Care Time/CCT Total # of Minutes Spent Total Time Spent with Patient: Total time spent is greater than 50% in coordination of care (as documented) at patient's floor/unit and/or counseling patient: (1) Rhabdomyolysis Encounter type: initial encounter Rhabdomyolysis type: traumatic Qualified Code(s): T79.6XXA - Traumatic ischemia of muscle, initial encounter (2) Fall Encounter type: initial encounter Qualified Code(s): W19.XXXA - Unspecified fall, initial encounter
[2018-12-12] MEDS: LIDOCAINE 4% CREAM 15 GM TUBE EXT SCH (21:33)
[2018-12-12] MEDS: DICLOFENAC SOD 1% GEL 100 GM TUBE EXT SCH (21:33)
[2018-12-13] MEDS: LEVOTHYROXINE SODIUM 50 MCG TABLET PO SCH (06:11)
[2018-12-13 06:21] LABS: Basophils # (auto) 0.01 K/uL (0-0.2); Basophils % (auto) 0.1 %; Eosinophils # (auto) 0.02 K/uL (0-0.5); Eosinophils % (auto) 0.3 %; Hematocrit (blood only) 33.9 % (37-47); Hemoglobin 11.3 g/dL (12.0-16.0); Immature Granulocytes # (auto) 0.01 K/uL (0.00-0.02); Immature Granulocytes % (auto) 0.1 %; Lymphocytes # (auto) 0.72 K/uL (1.2-3.4); Lymphocytes % (auto) 10.6 %; Mean Corpuscular Hemoglobin 30.4 pg (25-34); Mean Corpuscular Hgb Conc 33.3 g/dL (32-36); Mean Corpuscular Volume 91.1 fL (80-100); Mean Platelet Volume 9.9 fL (7.4-10.4); Monocytes # (auto) 0.65 K/uL (0.11-0.59); Monocytes % (auto) 9.6 %; Neutrophils # (auto) 5.39 K/uL (1.4-6.5); Neutrophils % (auto) 79.3 %; Platelet Count 157 K/uL (130-400); RDW Coefficient of Variation 16.7 % (11.5-14.5); RDW Standard Deviation 55.2 fL (36.4-46.3); Red Blood Count 3.72 M/uL (4.2-5.4)
[2018-12-13] MEDS: NSS + 20MEQ KCL 20 MEQ/1,000 ML BAG IV SCH (06:38)
[2018-12-13] MEDS: ACETAMINOPHEN 325 MG TAB PO PRN ×2 (06:45→22:27)
[2018-12-13 06:50] LABS: Alanine Aminotransferase 41 U/L (12-78); Albumin Level 2.7 gm/dl (3.4-5.0); Aspartate Aminotransferase 44 U/L (15-37); BUN Creatinine Ratio 12.4 (10-20); Blood Urea Nitrogen 6 mg/dl (7-18); Carbon Dioxide 25 mmol/L (21-32); Chloride 104 mmol/L (98-107); Creatinine Clr Calc Pharmacy 97.4 ml/min; Est GFR (African American) 108.1; Est GFR (Non-African American) 93.3; Glucose 104 mg/dl (70-99); Potassium 3.4 mmol/L (3.5-5.1); Sodium 139 mmol/L (136-145)
[2018-12-13 06:59] LABS: Albumin Globulin Ratio 0.7 (0.9-2); Alkaline Phosphatase 82 U/L (45-117); Bilirubin,Total 0.9 mg/dl (0.2-1); Creatine Kinase MB 5.3 ng/ml (0.5-3.6); Globulin 3.9 gm/dl (2.5-4.0); Phosphorus 2.8 mg/dl (2.5-4.9); Total Protein 6.6 gm/dl (6.4-8.2)
[2018-12-13] MEDS: BUDESONIDE 0.5 MG/2 ML VIAL (PULMICORT) INH SCH ×2 (07:17→19:01)
[2018-12-13] MEDS: AMLODIPINE BESYLATE 5 MG TAB PO SCH (08:55)
[2018-12-13] MEDS: CHOLECALCIFEROL 1,000 UNITS TAB PO SCH (08:55)
[2018-12-13] MEDS: PANTOprazole 40 MG TAB PO SCH ×2 (08:56→21:28)
[2018-12-13] MEDS: CALCIUM 600MG + VIT D 400 IU TAB PO SCH (08:56)
[2018-12-13] MEDS: MONTELUKAST SODIUM 10 MG TABLET PO SCH (08:56)
[2018-12-13] MEDS: CYANOCOBALAMIN (VITAMIN B-12) 100 MCG TABLET PO SCH (08:56)
[2018-12-13] MEDS: RIVAROXABAN 20 MG TAB PO SCH (08:56)
[2018-12-13] MEDS: FEXOFENADINE HCL 180 MG TAB PO SCH (08:56)
[2018-12-13] MEDS: CEROVITE ADV FORMULA TAB PO SCH (08:56)
[2018-12-13] MEDS: ASCORBIC ACID 500 MG TAB PO SCH (08:57)
[2018-12-13] MEDS: DICLOFENAC SOD 1% GEL 100 GM TUBE EXT SCH ×2 (09:16→20:39)
--- NOTE | 2018-12-13 12:39 | Hospitalist Progress Note ---
Date of Service December 13, 2018 Assessment & Plan (1) Near syncope: Her story does not give a clear cause. She seems to more be falling asleep and not being able to catch herself as she falls rather than actually passing out. Possibly due to bradycardia, but seen by cardiology with thought that this was not as likely and we were just seeing natural sinus pauses. MRI lumbar spine on 12/11 showed mild subacute compression fracture at L3 and mild to moderate central canal stenosis at L4/L5, but was otherwise non-acute. - Possibly due to weakness and inability to catch herself - Monitor on telemetry - Repleted potassium & magnesium (2) Fall: As above, PT OT - Endurance is poor (3) Hypertension: BP is 140/70. Overall controlled. - Continue home amlodipine 2.5mg (4) Afib: EKG shows afib which is long-standing with slow to normal ventricular response. - Continue Xarelto - No need for rate-control (5) Generalized anxiety disorder: Has a somewhat anxious affect. Per son, has had life-long issues with anxiety. - Patient does not have lorazepam on her list even though she says she takes it occasionally. - Hydroxyzine PRN (6) Rhabdomyolysis: Traumatic rhabdomyolysis in setting of fall and prolonged downtime. Resolved quickly. - IV fluids (7) Irritable bowel syndrome: Has IBS with some chronic constipation. Had a looser BM on 12/11. - Continue home meds polyethylene glycol (8) Chronic ITP (idiopathic thrombocytopenia): Notes indicate history of ITP; however, platelets recently have been normal. - Still normal on 12/12. No bleeding. - Monitor (9) Asthma: No shortness of breath today. - Continue home budesonide, montelukast, and fexofenadine - DuoNebs PRN (10) DVT prophylaxis: Xarelto for afib Subjective Feels the knee might be slightly better today. Does not even remember if she is getting her diclofenac gel though. Otherwise, her appetite is improved. Review of Systems Review of Systems: All systems reviewed & are unremarkable except as noted in HPI & below Physical Exam Constitutional: WD/WN, vitals as above Eyes: EOM intact bilaterally; no conjunctival abnormality ENMT: external ear and nose normal, oropharynx normal Neck: trachea midline, no thyromegaly normal visual inspection Respiratory: normal respiratory effort, lungs clear to auscultation no respiratory distress Cardiovascular: RRR, no murmur, no edema Gastrointestinal (Abdomen): Inspection/Auscultation: abdomen normal to inspection; abdomen not distended Musculoskeletal: no cyanosis or clubbing, extremities motor strength 5/5 Skin: no rashes, warm and dry Neurologic: moves all extremities (Right leg is slightly weaker than left in elevation (hip flexion) 4/5. ) and awake Psychiatric: Orientation: alert, oriented to person and cooperative Results & Data Vital Signs (Past 12 Hours) Vital Signs Temp Pulse Resp BP Pulse Ox 12/13/18 12:16 37.0 C 89 18 138/68 95 12/13/18 07:31 36.6 C 67 17 146/78 H 95 12/13/18 07:17 83 16 97 12/13/18 04:17 36.9 C 96 H 28 H 145/89 H 26 L PG Care Time/CCT Total # of Minutes Spent Total Time Spent with Patient: Total time spent is greater than 50% in coordination of care (as documented) at patient's floor/unit and/or counseling patient: (1) Fall Encounter type: initial encounter Qualified Code(s): W19.XXXA - Unspecified fall, initial encounter (2) Rhabdomyolysis Encounter type: initial encounter Rhabdomyolysis type: traumatic Qualified Code(s): T79.6XXA - Traumatic ischemia of muscle, initial encounter
[2018-12-13] MEDS: POTASSIUM CHLORIDE PWD 20 MEQ PACK PO SCH ×2 (14:45→21:29)
[2018-12-13] MEDS: LIDOCAINE 4% CREAM 15 GM TUBE EXT SCH ×2 (20:39→21:53)
[2018-12-14 05:31] LABS: BUN Creatinine Ratio 17.6 (10-20); Calcium 8.2 mg/dl (8.5-10.1); Creatinine Clr Calc Pharmacy 81.8 ml/min; Est GFR (African American) 102.1; Est GFR (Non-African American) 88.1; Magnesium 1.8 mg/dl (1.8-2.4); Phosphorus 3.2 mg/dl (2.5-4.9); Potassium 3.3 mmol/L (3.5-5.1)
[2018-12-14] MEDS: LEVOTHYROXINE SODIUM 75 MCG TABLET PO SCH (06:25)
[2018-12-14] MEDS: BUDESONIDE 0.5 MG/2 ML VIAL (PULMICORT) INH SCH ×2 (07:09→18:58)
[2018-12-14] MEDS: ACETAMINOPHEN 325 MG TAB PO PRN ×2 (07:35→22:37)
[2018-12-14] MEDS: AMLODIPINE BESYLATE 5 MG TAB PO SCH (07:37)
[2018-12-14] MEDS: POTASSIUM CHLORIDE PWD 20 MEQ PACK PO SCH ×2 (07:37→21:03)
[2018-12-14] MEDS: PANTOprazole 40 MG TAB PO SCH ×2 (07:37→21:02)
[2018-12-14] MEDS: MONTELUKAST SODIUM 10 MG TABLET PO SCH (07:38)
[2018-12-14] MEDS: DICLOFENAC SOD 1% GEL 100 GM TUBE EXT SCH ×3 (08:42→21:02)
[2018-12-14] MEDS: RIVAROXABAN 20 MG TAB PO SCH (08:43)
[2018-12-14] MEDS ORDERED: CALCIUM GLUCONATE 10% 10 ML VIAL IV STA (09:11)
[2018-12-14] MEDS ORDERED: CALCIUM GLUCONATE 10% 1,000 MG in SODIUM CHLORIDE 0.9% 50 ML IV STA (09:19)
[2018-12-14] MEDS ORDERED: POTASSIUM CHLORIDE 20 MEQ in SODIUM CHLORIDE 0.9% 500 ML IV ONE (09:30)
[2018-12-14] MEDS: LIDOCAINE 5% 1 PATCH TD SCH (11:22)
[2018-12-14] MEDS ORDERED: POLYETHYLENE (MIRALAX) 17 GM PACK PO ONE ×2 (12:00→20:00)
--- NOTE | 2018-12-14 14:25 | Hospitalist Progress Note ---
Date of Service December 14, 2018 Assessment & Plan (1) Near syncope: Her story does not give a clear cause. She seems to more be falling asleep and not being able to catch herself as she falls rather than actually passing out. Possibly due to bradycardia, but seen by cardiology with thought that this was not as likely and we were just seeing natural sinus pauses. MRI lumbar spine on 12/11 showed mild subacute compression fracture at L3 and mild to moderate central canal stenosis at L4/L5, but was otherwise non-acute. - Possibly due to weakness and inability to catch herself - Monitor on telemetry - Repleted potassium & calcium today - May be contributing to weakness. (2) Fall: As above, PT OT - Endurance is poor (3) Hypertension: BP is 170/75. Overall controlled, but at times higher. - Continue home amlodipine 2.5mg - Hold off on any additive medication at this time. (4) Afib: EKG shows afib which is long-standing with slow to normal ventricular response. - Continue Xarelto - No need for rate-control (5) Generalized anxiety disorder: Has a somewhat anxious affect. Per son, has had life-long issues with anxiety. - Patient does not have lorazepam on her list even though she says she takes it occasionally. - Hydroxyzine PRN (6) Rhabdomyolysis: Traumatic rhabdomyolysis in setting of fall and prolonged downtime. Resolved quickly with IV fluids. - No further inpatient needs. (7) Irritable bowel syndrome: Has IBS with some chronic constipation. Had a looser BM on 12/11. - Continue home meds polyethylene glycol - Having to negotiate with her to take Miralax. (8) Chronic ITP (idiopathic thrombocytopenia): Notes indicate history of ITP; however, platelets recently have been normal. - Still normal on 12/12. No bleeding. - Monitor (9) Asthma: No shortness of breath today. - Continue home budesonide, montelukast, and fexofenadine - DuoNebs PRN (10) DVT prophylaxis: Xarelto for afib Subjective Reports continued pain in the knees and in the back with some sciatic radiation. Nausea is slightly worse today. Review of Systems Review of Systems: All systems reviewed & are unremarkable except as noted in HPI & below Physical Exam Constitutional: WD/WN, vitals as above Eyes: EOM intact bilaterally; no conjunctival abnormality ENMT: external ear and nose normal, oropharynx normal Neck: trachea midline, no thyromegaly normal visual inspection Respiratory: normal respiratory effort, lungs clear to auscultation no respiratory distress Cardiovascular: RRR, no murmur, no edema Gastrointestinal (Abdomen): Inspection/Auscultation: abdomen normal to inspection; abdomen not distended Musculoskeletal: no cyanosis or clubbing, extremities motor strength 5/5 Skin: no rashes, warm and dry Neurologic: moves all extremities (Right leg is slightly weaker than left in elevation (hip flexion) 4/5. ) and awake Psychiatric: Orientation: alert, oriented to person and cooperative Results & Data Vital Signs (Past 12 Hours) Vital Signs Temp Pulse Resp BP Pulse Ox 12/14/18 07:20 37.2 C 78 18 168/75 H 94 12/14/18 07:09 73 18 95 PG Care Time/CCT Total # of Minutes Spent Total Time Spent with Patient: Total time spent is greater than 50% in coordination of care (as documented) at patient's floor/unit and/or counseling patient: (1) Fall Encounter type: initial encounter Qualified Code(s): W19.XXXA - Unspecified fall, initial encounter (2) Rhabdomyolysis Encounter type: initial encounter Rhabdomyolysis type: traumatic Qualified Code(s): T79.6XXA - Traumatic ischemia of muscle, initial encounter
[2018-12-14] MEDS: LIDOCAINE 4% CREAM 15 GM TUBE EXT SCH (21:03)
[2018-12-15] MEDS: LEVOTHYROXINE SODIUM 50 MCG TABLET PO SCH (06:06)
[2018-12-15] MEDS: BUDESONIDE 0.5 MG/2 ML VIAL (PULMICORT) INH SCH (07:03)
[2018-12-15 07:20] VITALS: BP 155/88; PULSE 85; TEMP 98.1; O2SAT 96
[2018-12-15] MEDS: POTASSIUM CHLORIDE PWD 20 MEQ PACK PO SCH (09:09)
[2018-12-15] MEDS: PANTOprazole 40 MG TAB PO SCH (09:10)
[2018-12-15] MEDS: MONTELUKAST SODIUM 10 MG TABLET PO SCH (09:11)
[2018-12-15] MEDS: LIDOCAINE 5% 1 PATCH TD SCH (09:11)
[2018-12-15] MEDS: AMLODIPINE BESYLATE 5 MG TAB PO SCH (09:12)
[2018-12-15] MEDS: DICLOFENAC SOD 1% GEL 100 GM TUBE EXT SCH (09:13)
[2018-12-15] MEDS: RIVAROXABAN 20 MG TAB PO SCH (09:13)
--- NOTE | 2018-12-15 13:10 | Discharge Summary ---
Date of Service December 15, 2018 Admission HPI Per Admitting Provider Patient is a 78 years old female with past medical history of hypertension, anxiety, hypothyroidism, positive ARTEMIO, asthma AFlor gerards was brought by the ambulance to the emergency room after she was found by her caregiver on the floor for possibly 30 minutes to 1 hour. Patient said that she felt generalized weakness and she fell down on the floor and she could not move. She said that she never lost consciousness but she said she could fall to sleep. Patient is regularly takes her medicine and does not check her blood pressure before she takes her blood pressure medication. It is not clear what occurred this af ternoon when she fell. Patient is on Xarelto for Jessica gerards. Patient also has anxiety and she takes Lorazepam for it. Her caregiver said that she gets panic attacks if something something does not go her way. Patient had shingles just resolving this week and she completed her therapy for it. She still has some lesions which are in resolution over her right arm. EKG shows atrial fibrillation with premature ventricular complexes and right bundle branch block, with nonspecific T wave abnormalities especially in the anterolateral lateral leads which are abnormal in comparison to her EKG from December 07, 2018. This time patient reports having diarrhea. She had loose bowel movement normal in color this morning. At that time patient was also in the ER for similar fall. Labs are reviewed: WBC 7.27, hemoglobin 12.8, hematocrit 38.2, platelets 162, PT PTT INR pending, potassium 3, chloride 104, anion gap 14, BUN 17, creatinine 0.61 GFR 85.6, magnesium 1.9, bilirubin 1.4, AST 69, ALT 41, alkaline phosphatase 84, creatinine kinase 1684, troponin -0.015, TSH 1.77. CT of the head: No acute intracranial abnormality, trace contusion and hematoma in the left periorbital/frontal scalp. No subjacent osseous injury. Chest x-ray significant for cardiomegaly, no other convincing evidence of acute cardiopulmonary disease. Cervical spine and no acute cervical spine fracture or subluxation. Right knee x-rays: Osteopenia and the degree of degenerative changes, no acute osseous injury. Tricompartmental degenerative changes more severe in the medial compartment. Left knee x-rays degree of osteopenia and degenerative changes no acute osseous injury. Severe tricompartmental degenerative changes prominently in the medial compartment. Due to frequent falls and second visit to the emergency room and near syncope decision was made to admit patient for further evaluation and treatment to PCU telemetry. Principal Diagnosis Multifactorial weakness Discharge Exam Constitutional WD/WN, vitals as above Eyes EOM intact bilaterally; no conjunctival abnormality ENMT external ear and nose normal, oropharynx normal Neck trachea midline, no thyromegaly normal visual inspection Respiratory normal respiratory effort, lungs clear to auscultation no respiratory distress Cardiovascular RRR, no murmur, no edema Gastrointestinal (Abdomen) Inspection/Auscultation: abdomen normal to inspection; abdomen not distended Musculoskeletal no cyanosis or clubbing, extremities motor strength 5/5 Skin no rashes, warm and dry Neurologic moves all extremities (Right leg is slightly weaker than left in elevation (hip flexion) 4/5. ) and awake Psychiatric Orientation: alert, oriented to person and cooperative Discharge Data Allergies Allergy/AdvReac Type Severity Reaction Status Date / Time cat dander Allergy Unknown ALLERGIES Verified 12/07/18 13:02 desloratadine Allergy Unknown Unknown Verified 12/10/18 19:03 house dust Allergy Unknown ALLERGIES Verified 12/10/18 19:03 mold Allergy Unknown Unknown Verified 12/10/18 19:03 Sulfa (Sulfonamide Allergy Unknown HIVES Verified 12/07/18 13:02 Antibiotics) amoxicillin AdvReac Mild GI SYMPTOMS Verified 12/10/18 19:03 atropine AdvReac Mild pain & Verified 12/07/18 13:02 diarrhea diphenoxylate AdvReac Mild pain & Verified 12/07/18 13:02 diarrhea moxifloxacin AdvReac Mild pain & Verified 12/07/18 13:02 diarrhea Cipro AdvReac Unknown GI SYMPTOMS Unverified 07/12/17 08:57 ciprofloxacin AdvReac Unknown GI SYMPTOMS Verified 12/07/18 13:02 clavulanic acid AdvReac Unknown GI SYMPTOMS Verified 12/07/18 13:02 erythromycin base AdvReac Unknown GI SYMPTOMS Verified 12/07/18 13:02 metronidazole AdvReac Unknown GI SYMPTOMS Verified 12/07/18 13:02 minocycline AdvReac Unknown GI SYMPTOMS Verified 12/07/18 13:02 [id number] Reductase AdvReac Unknown Unknown Verified 12/10/18 19:03 Inhibitor Consultations 12/10/18 16:43 ED Decision to Admit Stat 12/11/18 01:30 Consult Cardiology Routine Ordered Studies 12/10/18 15:19 CT cervical spine wo con Stat CT head/brain wo con Stat 12/10/18 18:56 CT angio head w con Stat CT angio neck with con Stat US renal/blad retro comp Urgent 12/11/18 16:54 MR lumbar spine wo con Routine Hospital Course (1) Near syncope: Her story does not give a clear cause. She seemed to more be falling asleep and not being able to catch herself as she falls rather than actually passing out. Possibly due to bradycardia, but seen by cardiology with thought that this was not as likely and we were just seeing natural sinus pauses. MRI lumbar spine on 12/11 showed mild subacute compression fracture at L3 and mild to moderate central canal stenosis at L4/L5, but was otherwise non-acute. - Possibly due to weakness and inability to catch herself - Monitored on telemetry - No arrythmias at any point. - Repleted electrolytes - May have contributed to weakness. (2) Confusion: Reported to me some hallucinations about men in her home that almost bordered on delusions. She had a full backstory that almost sounded like a hostage situation with masked men taking people out of the room and almost implying they were being executed. It sounds like there were several of these events over the course of the last month or so. - Seen by speech therapy - MOCA testing revealed difficulty with memory and recall. She would not do the spatial or executive testing due to reporting her hand hurt. - Follow up with neurology and [facility] for further testing. (3) Fall: Some right knee and right sciatic pain. MRI lumbar spine and x-rays of the knee showed no injuries. - Diclofenac gel helped the knee -> Continue TID - Lidocaine patch for the back. (4) Hypertension: BP is 170/75. Overall controlled, but at times higher. - Continue home amlodipine 2.5mg - Hold off on any additive medication at this time. - Back down to 155/90 by discharge. Titrate as needed. (5) Afib: EKG showed afib which is long-standing with normal ventricular response. - Continue Xarelto - No need for rate-control (6) Generalized anxiety disorder: Has a somewhat anxious affect. Per son, has had life-long issues with anxiety. - Patient does not have lorazepam on her list even though she says she takes it occasionally. - Hydroxyzine PRN (7) Rhabdomyolysis: Traumatic rhabdomyolysis in setting of fall and prolonged downtime. Resolved quickly with IV fluids. - No further inpatient needs. (8) Irritable bowel syndrome: Has IBS with some chronic constipation. Had a looser BM on 12/11. Normal on 12/14. - Continue home meds polyethylene glycol - Having to negotiate with her to take Miralax. (9) Chronic ITP (idiopathic thrombocytopenia): Notes indicate history of ITP; however, platelets recently have been normal. - Still normal on discharge. No bleeding. - Monitor with CBC in 2-3 weeks. (10) Asthma: No shortness of breath today. - Continue home budesonide, montelukast, and fexofenadine - DuoNebs PRN (11) DVT prophylaxis: Xarelto for afib Total Time Total Time Spent Total Time Spent (In Minutes): 35 Total Time Includes: Examination of the Patient, Discharge Planning and Medication Reconciliation Discharge Plan Discharge Items Patient Disposition: [facility] Reason For Visit: NEAR SYNCOPE Discharge Diagnosis: Weakness, fall Activity: Resume your previous activity Exercise/Sports: Gradually increase as tolerated Non-emergency contact: Primary Care Provider Call non-emergency contact if: your symptoms worsen Follow-up/Referrals: Luis Daniel Flores MD [Primary Care Provider] - Diet: Regular Addtl Attending Provider Instructions: Ms. Malone had a fall at home. She did not lose consciousness; however, she could not get up and had a mild rhabdo from being on the ground. She had a cognitive evaluation which revealed memory and attention deficits. MRI lumbar spine showed only mild spinal stenosis and no nerve compression. CTAs of the head and neck showed no major occlusions. She had x-rays of her right knee which did not show any fracture, but did show arthritis. She was seen by cardiology with no concern for heart rate. BP remained stable. She had mildly low potassium and could have a BMP recheck in 5-7 days. She is in afib, but is rate-controlled without medications and had no issues with it here in the hospital. She should follow up with neurology in 2-4 weeks for further dementia work-up and could consider follow up with orthopedics if her right knee pain and back pain aren't improving. Pending Studies at Discharge: No Stand-Alone Forms: My [facility] Skilled Items Patient informed of condition?: Yes DNR: No Discharge Level of Care: Skilled Communicable Disease: No Discharge Prognosis: Improving Lines: None Urinary Catheter: No Medications and DC Order Prescriptions: New acetaminophen [Mapap (acetaminophen)] 325 mg Tablet 650 mg PO Q4H PRN (Reason: pain) Qty: 1 RF: 0 diclofenac sodium [Voltaren] 1 % Gel 4 gm EXT TID Qty: 100 RF: 0 hydroxyzine HCl 10 mg Tablet 10 mg PO Q8 PRN (Reason: anxiety) Qty: 1 RF: 0 potassium chloride 20 mEq Packet 20 meq PO DAILY Qty: 1 RF: 0 lidocaine 5 % Adhesive Patch,Medicated 1 patch transdermal QAM Qty: 1 RF: 0 Continued lidocaine HCl [Aspercreme (lidocaine)] 4 % cream 1 appln TOP DAILY Qty: 76.5 RF: 0 calcium citrate-vitamin D3 315 mg- 250 unit tablet 0.5 tab PO DAILY RF: 0 amlodipine 2.5 mg tablet 2.5 mg PO DAILY Qty: 30 RF: 0 acetaminophen 325 mg tablet 325 mg PO BID RF: 0 cholecalciferol (vitamin D3) 1,000 unit capsule 1,000 units PO DAILY RF: 0 coenzyme Q10 200 mg capsule 200 mg PO DAILY RF: 0 Centrum Silver Women 8 mg iron-400 mcg-300 mcg tablet 1 tab PO DAILY RF: 0 budesonide 0.5 mg/2 mL suspension for nebulization 0.5 mg inhalation Q12H Qty: 120 RF: 5 ascorbic acid (vitamin C) 250 mg tablet 250 mg PO DAILY RF: 0 cyanocobalamin (vitamin B-12) 100 mcg tablet 100 mcg PO DAILY RF: 0 fexofenadine 180 mg tablet 180 mg PO DAILY RF: 0 levothyroxine 50 mcg tablet 50 mcg PO Q2D Qty: 15 RF: 0 levothyroxine 75 mcg tablet 75 mcg PO Q2D Qty: 15 RF: 0 Xarelto 20 mg tablet 20 mg PO DAILY Qty: 90 RF: 3 polyethylene glycol 3350 [Miralax] 17 gram/dose powder 8.5 gm PO DAILY PRN (Reason: Constipation) RF: 0 sodium chloride [Saline Nasal Mist] 0.65 % aerosol,spray 1 spray INTNAS BID PRN (Reason: Dry Nasal Passages) RF: 0 albuterol sulfate [Ventolin HFA] 90 mcg/actuation HFA aerosol inhaler 2 puff inhalation QID PRN (Reason: Shortness Of Breath Or Wheezing) RF: 0 estradiol [Yuvafem] 10 mcg tablet 10 mcg vaginal 3XWK RF: 0 Beano 150 unit tablet 1 tab PO DAILY PRN (Reason: Indigestion) RF: 0 montelukast [Singulair] 10 mg tablet 10 mg PO DAILY RF: 0 pimecrolimus [Elidel] 1 % cream 1 applic topical BID PRN (Reason: Breakouts) RF: 0 Changed pantoprazole 40 mg tablet,delayed release (DR/EC) 40 mg PO DAILY Qty: 60 RF: 0 Discharge Orders: Discharge Order (Routine); Ordered 12/15/18 Ordered By: Herson Santos Admission Data Admit Date/Time: 12/10/18 17:37 Attending Provider: Herson Santos Admit Provider: Cristo Savage Primary Care Provider: Luis Daniel Flores Other Providers: Herson Santos ; Heather Allen [place] ; Cristo Savage ; Dov Rodriguez Other Interventions: Discharge Summary Assessment (RN) Last Done: 12/15/18 11:00 DC Date/Time DO NOT enter until pt leaves facility: 12/15/18 11:20
== END 2018-12-15 11:20 | DRG 565 ==
LOC: ED 15:06 → SUATTDRO 17:37 → 2E 17:37 → 4W 12-13 14:59

== ENCOUNTER 2019-02-04 11:41 | Inpatient (IN) ==
[2019-02-04] MEDS ORDERED: ALBUT/IPRATROP 3MG/0.5MG NEB 3 ML VIAL INH STA (12:14)
[2019-02-04 12:42] LABS: Basophils # (auto) 0.03 K/uL (0-0.2); Basophils % (auto) 0.4 %; Eosinophils # (auto) 0.03 K/uL (0-0.5); Eosinophils % (auto) 0.4 %; Hematocrit (blood only) 32.5 % (37-47); Hemoglobin 10.6 g/dL (12.0-16.0); Immature Granulocytes # (auto) 0.02 K/uL (0.00-0.02); Immature Granulocytes % (auto) 0.3 %; Lymphocytes # (auto) 0.61 K/uL (1.2-3.4); Lymphocytes % (auto) 7.8 %; Mean Corpuscular Hemoglobin 30.1 pg (25-34); Mean Corpuscular Hgb Conc 32.6 g/dL (32-36); Mean Corpuscular Volume 92.3 fL (80-100); Mean Platelet Volume 9.1 fL (7.4-10.4); Monocytes # (auto) 1.09 K/uL (0.11-0.59); Neutrophils # (auto) 6.01 K/uL (1.4-6.5); Neutrophils % (auto) 77.1 %; Platelet Count 247 K/uL (130-400); RDW Coefficient of Variation 16.8 % (11.5-14.5); RDW Standard Deviation 56.6 fL (36.4-46.3); Red Blood Count 3.52 M/uL (4.2-5.4); White Blood Count 7.79 K/uL (4.8-10.8)
--- NOTE | 2019-02-04 12:48 | XRay Report ---
XR chest 1V portable CLINICAL HISTORY: Dyspnea dyspnea COMPARISON STUDY: 12/10/2018 FINDINGS: Interval development of diffuse bilateral parenchymal infiltrative change versus atypical p ulmonary edema. Mild stable cardiomegaly. Diaphragms are smooth. Slight blunting left lateral costophrenic angle. IMPRESSION: Interval development of widespread bilateral parenchymal infiltrates versus atypical pul monary edema. The above report was generated using voice recognition software. It may contain grammatical, syntax or spelling errors. Electronically signed by: Hussain Cody M.D. 02/04/2019 12:47 PM
[2019-02-04 12:49] LABS: INR 1.3 (0.9-1.1); Prothrombin Time 13.5 Seconds (9.0-12.0)
[2019-02-04 12:57] LABS: Alanine Aminotransferase 20 U/L (12-78); Albumin Level 2.8 gm/dl (3.4-5.0); Aspartate Aminotransferase 19 U/L (15-37); BUN Creatinine Ratio 22.7 (10-20); Blood Urea Nitrogen 13 mg/dl (7-18); Calcium 9.5 mg/dl (8.5-10.1); Carbon Dioxide 21 mmol/L (21-32); Chloride 106 mmol/L (98-107); Est GFR (African American) 100.3; Est GFR (Non-African American) 86.6; Glucose 111 mg/dl (70-99); Potassium 3.4 mmol/L (3.5-5.1); Sodium 137 mmol/L (136-145)
[2019-02-04 13:02] LABS: Albumin Globulin Ratio 0.6 (0.9-2); Alkaline Phosphatase 111 U/L (45-117); Bilirubin,Total 1.1 mg/dl (0.2-1); Globulin 4.7 gm/dl (2.5-4.0); Total Protein 7.5 gm/dl (6.4-8.2); Troponin I < 0.015 ng/ml (0-0.045)
[2019-02-04] MEDS ORDERED: methylPREDNISolone 125 MG/2 ML VIAL IV STA (13:27)
[2019-02-04] MEDS ORDERED: cefTRIAXone SODIUM 1,000 MG/50 ML BAG IV STA (13:27)
[2019-02-04 14:03] LABS: Influenza A virus by PCR Neg for Influ A (Neg); Influenza B virus by PCR Neg for Influ B (Neg)
[2019-02-04 17:28] LABS: Appearance Urine Turbid (Clear); Bacteria Urine Automated 4+ (Negative); Bilirubin Urine Negative (Negative); Blood Urine 2+ (Negative); Color Urine Dark Yellow; Epithelial Cell Urine Auto >30 /lpf (0-5); Glucose Urine UA Negative (Negative); Ketones Urine 1+ (Negative); Leukocyte Esterase Urine 2+ (Negative); Nitrite Urine Positive (Negative); Protein Urine Trace (Negative); Specific Gravity Urine 1.021 (1.000-1.030); Urobilinogen Urine Negative (Negative); WBC Urine Automated >30 /hpf (0-5)
[2019-02-04] MEDS ORDERED: ALPHA D GALACTOSIDASE PO PRN (17:47)
[2019-02-04] MEDS ORDERED: hydrOXYzine HCl 10 MG TAB PO PRN (17:47)
[2019-02-04] MEDS ORDERED: MAGNESIUM HYDROXIDE SUSP 30 ML UDC PO PRN (17:47)
[2019-02-04] MEDS ORDERED: POLYETHYLENE (MIRALAX) 17 GM PACK PO PRN (17:47)
[2019-02-04] MEDS ORDERED: ALBUTEROL HFA 8 GM INHALER INH PRN (17:47)
[2019-02-04] MEDS ORDERED: OXYCODONE/ACETAMINOPHEN 5mg/325mg TAB PO PRN (17:47)
[2019-02-04] MEDS ORDERED: ALUMINUM/MAGNESIUM SUSP 30 ML UDC PO PRN (17:47)
--- NOTE | 2019-02-04 18:27 | Emergency Department Note ---
Entered by Georgia East acting as a scribe for History of Present Illness General Chief complaint: Shortness of Breath/Dyspnea Stated complaint: TROUBLE BREATHING WITH ASTHMA, 2-3 WEEKS Time Seen by Provider: 02/04/19 11:59 Source: patient History of Present Illness Onset (ago): day(s) 2 Location: chest Pain Consistency: + other (worsening ) Maximum Pain Intensity: 6 Quality: + other (shortness of breath ) Associated symptoms: + loss of appetite and + other (positive chest tightness; positive uncomfortable in chest with breathing; positive leg swelling; positive gassy); no chest pain The patient is a 78 year old female with PMHx of breast cancer, asthma, HTN, Afib, IBS, and hypothyroidism who presents to the Emergency Room with complaints of worsening shortness of breath that began 2 days prior to arrival. The patient reports that it is hard for her to take a deep breath, stating that her chest feels tight and it feels uncomfortable in her chest with breathing. She reports a nonproductive cough during this time. The patient denies chest pain. She states that she has had generalized weakness during this time and reports some leg swelling. The patient states that she has been nauseous and gassy during this time. She reports no appetite over the past several days. The patient states that she used a rescue inhaler last night for her symptoms, and states that this did not relieve her symptoms. The patient states that a little over a year ago she had 2 episodes of pneumonia, and states that she was in the hospital one month ago for a fall. She states that she is on Xarelto. Home Medications Home Medications Medication Instructions Recorded Confirmed Type amlodipine 2.5 mg tablet 2.5 mg PO QAM #30 tab 07/23/18 02/04/19 History cholecalciferol (vitamin D3) 25 1,000 units PO QAM cap 07/23/18 02/04/19 History mcg (1,000 unit) capsule budesonide 0.5 mg/2 mL suspension 0.5 mg INHALATION Q12H #120 ml 09/24/18 02/04/19 Rx for nebulization multivit with 1 tab PO QAM 09/24/18 02/04/19 History qozadlup-okle-JA-lutein 8 mg iron-400 mcg-300 mcg tablet ascorbic acid (vitamin C) 250 mg 250 mg PO QAM tab 10/30/18 02/04/19 History tablet cyanocobalamin (vitamin B-12) 100 100 mcg PO DAILY tab 10/30/18 02/04/19 History mcg tablet fexofenadine 180 mg tablet 180 mg PO DAILY tab 10/30/18 02/04/19 History levothyroxine 50 mcg tablet 50 mcg PO Q2D #15 tab 10/30/18 02/04/19 History levothyroxine 75 mcg tablet 75 mcg PO Q2D #15 tab 10/30/18 02/04/19 History albuterol sulfate [Ventolin HFA] 2 puff INHALATION QID PRN 11/13/18 02/04/19 History montelukast 10 mg tablet 10 mg PO DAILY 11/30/18 02/04/19 History pantoprazole 40 mg PO DAILY #60 tab 12/15/18 02/04/19 Rx acetaminophen 325 mg tablet 650 mg PO Q4H PRN tab 12/18/18 02/04/19 History judmp-l-eeufijvrdazgj 150 unit 1 tab PO DAILY PRN tab 01/22/19 02/04/19 History tablet calcium citrate 315 mg-vitamin D3 0.5 tab PO QAM tab 01/22/19 02/04/19 History 250 unit tablet coenzyme Q10 100 mg capsule 200 mg PO DAILY cap 01/22/19 02/04/19 History diclofenac sodium 1 % topical gel 4 gm TOP QID 01/22/19 02/04/19 History estradiol 10 mcg vaginal tablet 10 mcg PV QPM 01/22/19 02/04/19 History hydroxyzine HCl 10 mg tablet 10 mg PO Q8H PRN tab 01/22/19 02/04/19 History lidocaine 4 % topical patch 1 patch TOP DAILY 01/22/19 02/04/19 History lidocaine HCl 4 % topical liquid 4 % TOP UD 01/22/19 02/04/19 History roll-on melatonin 3 mg capsule 6 mg PO HS cap 01/22/19 02/04/19 History pimecrolimus 1 % topical cream 1 appln TOP QPM gm 01/22/19 02/04/19 History polyethylene glycol 3350 17 17 gm PO DAILY PRN 01/22/19 02/04/19 History gram/dose oral powder potassium chloride 20 mEq 20 meq PO DAILY 11/13/19 11/26/19 History tablet,extended release rivaroxaban [Xarelto] 20 mg PO QDD 02/04/19 02/04/19 History Allergies Allergy/AdvReac Type Severity Reaction Status Date / Time cat dander Allergy Unknown ALLERGIES Verified 02/04/19 13:34 desloratadine Allergy Unknown Unknown Verified 02/04/19 13:34 house dust Allergy Unknown ALLERGIES Verified 02/04/19 13:34 mold Allergy Unknown Unknown Verified 02/04/19 13:34 Sulfa (Sulfonamide Allergy Unknown HIVES Verified 02/04/19 13:34 Antibiotics) amoxicillin AdvReac Mild GI SYMPTOMS Verified 02/04/19 13:34 atropine AdvReac Mild pain & Verified 02/04/19 13:34 diarrhea diphenoxylate AdvReac Mild pain & Verified 02/04/19 13:34 diarrhea moxifloxacin AdvReac Mild pain & Verified 02/04/19 13:34 diarrhea Cipro AdvReac Unknown GI SYMPTOMS Unverified 07/12/17 08:57 ciprofloxacin AdvReac Unknown GI SYMPTOMS Verified 02/04/19 13:34 clavulanic acid AdvReac Unknown GI SYMPTOMS Verified 02/04/19 13:34 erythromycin base AdvReac Unknown GI SYMPTOMS Verified 02/04/19 13:34 metronidazole AdvReac Unknown GI SYMPTOMS Verified 02/04/19 13:34 minocycline AdvReac Unknown GI SYMPTOMS Verified 02/04/19 13:34 Mplbndo-Fds-Zyn Reductase AdvReac Unknown Unknown Verified 02/04/19 13:34 Inhibitor Past Med/Surg History Medical History Abnormal chest CT (Acute) Allergic rhinitis due to cats (Acute) Allergic rhinitis due to dust (Acute) Anxiety (Chronic) Asthma (Chronic) Bilateral impacted cerumen (Resolved) Bloating (Acute) Breast cancer (Resolved ~1998) "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 [id number] Status post completion of radiation therapy 03/30/1998" On 10/07/14 16:50 Teresa Karimi wrote "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 [id number] Status post completion of radiation therapy 03/30/1998" Chronic constipation (Acute) Chronic ITP (idiopathic thrombocytopenia) (Acute) Depression with anxiety (Acute) Dyslipidemia (Acute) Extrinsic asthma (Acute) Fatigue (Acute) Gastroparesis (Acute) Generalized anxiety disorder (Acute) History of esophageal reflux (Acute) Hypertension (Chronic) Hypothyroidism (Acute) Impacted cerumen of left ear (Acute) Irritable bowel syndrome (Acute) Peripheral edema (Acute) Permanent atrial fibrillation (Acute) Positive ARTEMIO (antinuclear antibody) (Chronic) Renal cyst (Chronic ~08/28/13) Rosacea (Acute) Sensorineural hearing loss (SNHL) of both ears (Acute) Somnolence, daytime (Acute) Telangiectasia (Acute) Thrombocytopenia (Chronic) Tinea pedis (Acute) Vaginal discharge (Acute) Vaginal yeast infection (Acute) Venous insufficiency (chronic) (peripheral) (Acute) Vitamin D deficiency (Acute) Surgical History History of appendectomy History of cholecystectomy History of dilation and curettage History of mastectomy History of tonsillectomy and adenoidectomy Family History Aunt Breast cancer Mother Renal failure Unknown Diabetes Hypertension Son Malignant neoplasm of brain Social History Preferred Language: Arabic Communication Ability: Effective Radiology Orderly Required: No Beliefs That Will Affect Care: None Current Living Situation: Legal Guardian Current Living Situation Comment: [facility] Other Information That Helps Us Care for You: No Feels Safe at Home: Yes Safety Concerns: Feels Safe At This Time Smoking Status: Former smoker Second Hand Exposure: No ; Hx Alcohol Use: No Hx Substance Use: No Seatbelt Use: always Review of Systems See HPI for pertinent positives & negatives. and A total of 10 systems reviewed and were otherwise negative Physical Exam Vital Signs Vital Signs - 24 hr 02/04/19 11:45 02/04/19 12:15 02/04/19 13:00 Temperature Source Oral Pulse Rate 102 H Pulse Rate [Apical] 94 H Pulse Rhythm Pulse Rhythm [Apical] Irregular Pulse Strength [Apical] Normal Respiratory Rate 28 H 22 Respiratory Effort / Characteristics Non-Labored Spontaneous Non-Labored Spontaneous Respiratory Depth Normal Normal Respiratory Pattern Regular Regular Blood Pressure 141/74 H Blood Pressure [Left Arm] 150/81 H Blood Pressure Mean 96 Blood Pressure Mean [Left Arm] 104 Blood Pressure Position [Left Arm] Sitting Pulse Oximetry 89 L 91 Oxygen Delivery Method Room Air Room Air Nasal Cannula Oxygen Flow Rate 2 Sepsis Recent Fever Within 48 Hours No Sepsis New/Unexplained Change in Mental Status No Sepsis Action Taken by Nursing No Action Required 02/04/19 13:04 02/04/19 14:36 Temperature Source Pulse Rate 89 Pulse Rate [Apical] 91 H Pulse Rhythm Irregular Pulse Rhythm [Apical] Regular Pulse Strength [Apical] Normal Respiratory Rate 22 20 Respiratory Effort / Characteristics Non-Labored Spontaneous Respiratory Depth Normal Respiratory Pattern Regular Blood Pressure Blood Pressure [Left Arm] 140/72 Blood Pressure Mean Blood Pressure Mean [Left Arm] 94 Blood Pressure Position [Left Arm] Sitting Pulse Oximetry 94 92 Oxygen Delivery Method Nasal Cannula Nasal Cannula Oxygen Flow Rate 2 2 Sepsis Recent Fever Within 48 Hours Sepsis New/Unexplained Change in Mental Status Sepsis Action Taken by Nursing GENERAL: Awake, alert, well-appearing, in no distress. On nasal cannula oxygen. HENT: Normocephalic, atraumatic. EYES: Normal conjunctiva. Sclera non-icteric. NECK: Supple. No nuchal rigidity. RESPIRATORY: Mild expiratory wheeze. Normal respiratory effort. CARDIAC: Normal rate. Irregular rhythm. Extremities warm and well perfused. GI: Soft, non-distended. No tenderness to palpation. No rebound or guarding. RECTAL: Deferred. MUSCULOSKELETAL: Atraumatic. Chest examination reveals no tenderness. LOWER EXTREMITIES: Calves are equal size bilaterally and non-tender. Trace bilateral pedal edema. NEURO: Normal sensorium. No sensory or motor deficits noted. No facial droop. SKIN: Warm and dry. No rash or jaundice noted. Course Course 1212: Past medical records reviewed. The patient was evaluated in room B11B. A complete history and physical exam was performed. 1325: I reassessed the patient and updated her on the x-ray result. 1346: I discussed the case with Dr. Savage[facility] Hospitalist who accepts the patient for further evaluation. Administered Medications Discontinued Medications Albuterol (Duoneb) 3 ml INH NOW STA Stop: 02/04/19 12:15 Last Admin: 02/04/19 13:08 Dose: 3 ml Documented by: [id number] Ceftriaxone Sodium (Rocephin) 1,000 mg in 50 mls @ 100 mls/hr IV NOW STA Stop: 02/04/19 13:56 Last Infusion: 02/04/19 15:00 Dose: 0 mls/hr Documented by: [id number] Admin: 02/04/19 14:30 Dose: 100 mls/hr Documented by: [id number] Methylprednisolone (Solumedrol) 125 mg IV NOW STA Stop: 02/04/19 13:28 Last Admin: 02/04/19 14:29 Dose: 125 mg Documented by: [id number] Medical Decision Making Differential Diagnosis Differential diagnoses includes but is not limited to pneumonia, bronchitis, COPD/Asthma exacerbation, pneumothorax, pulmonary embolism, congestive heart failure, acute coronary syndrome Medical Records Attestation: I reviewed the patient's medical records. Home Medications Current Medication List: was personally reviewed by md Laboratory Data Attestation: I reviewed the patient's lab results. Result diagrams: 02/04/19 12:27 02/04/19 12:27 Lab Results 02/04/19 02/04/19 02/04/19 Range/Units 12:27 12:27 12:27 WBC 7.79 (4.8-10.8) K/uL RBC 3.52 L (4.2-5.4) M/uL Hgb 10.6 L (12.0-16.0) g/dL Hct 32.5 L (37-47) % MCV 92.3 (80-100) fL MCH 30.1 (25-34) pg MCHC 32.6 (32-36) g/dL RDW Std Deviation 56.6 H (36.4-46.3) fL RDW Coeff of Reina 16.8 H (11.5-14.5) % Plt Count 247 (130-400) K/uL MPV 9.1 (7.4-10.4) fL Immature Gran % (Auto) 0.3 % Neut % (Auto) 77.1 % Lymph % (Auto) 7.8 % Sterling % (Auto) 14.0 % Eos % (Auto) 0.4 % Baso % (Auto) 0.4 % Immature Gran # (Auto) 0.02 (0.00-0.02) K/uL Neut # (Auto) 6.01 (1.4-6.5) K/uL Lymph # (Auto) 0.61 L (1.2-3.4) K/uL Sterling # (Auto) 1.09 H (0.11-0.59) K/uL Eos # (Auto) 0.03 (0-0.5) K/uL Baso # (Auto) 0.03 (0-0.2) K/uL PT 13.5 H (9.0-12.0) Seconds INR 1.3 H (0.9-1.1) Sodium 137 (136-145) mmol/L Potassium 3.4 L (3.5-5.1) mmol/L Chloride 106 (98-107) mmol/L Carbon Dioxide 21 (21-32) mmol/L Anion Gap 11.0 (3-11) BUN 13 (7-18) mg/dl Creatinine 0.59 L (0.6-1.2) mg/dl Est Cr Clr Drug Dosing Not Reportable Est GFR ( Amer) 100.3 Est GFR (Non-Af Amer) 86.6 BUN/Creatinine Ratio 22.7 H (10-20) Glucose 111 H (70-99) mg/dl Lactate (0.4-2.0) mmol/L Calcium 9.5 (8.5-10.1) mg/dl Total Bilirubin 1.1 H (0.2-1) mg/dl AST 19 (15-37) U/L ALT 20 (12-78) U/L Alkaline Phosphatase 111 (45-117) U/L Troponin I < 0.015 (0-0.045) ng/ml NT-Pro-B Natriuret Pep (0-1800) pg/ml Total Protein 7.5 (6.4-8.2) gm/dl Albumin 2.8 L (3.4-5.0) gm/dl Globulin 4.7 H (2.5-4.0) gm/dl Albumin/Globulin Ratio 0.6 L (0.9-2) Influenza Type A (PCR) (Neg) Influenza Type B (PCR) (Neg) 02/04/19 02/04/19 02/04/19 Range/Units 12:27 13:05 14:14 WBC (4.8-10.8) K/uL RBC (4.2-5.4) M/uL Hgb (12.0-16.0) g/dL Hct (37-47) % MCV (80-100) fL MCH (25-34) pg MCHC (32-36) g/dL RDW Std Deviation (36.4-46.3) fL RDW Coeff of Reina (11.5-14.5) % Plt Count (130-400) K/uL MPV (7.4-10.4) fL Immature Gran % (Auto) % Neut % (Auto) % Lymph % (Auto) % Sterling % (Auto) % Eos % (Auto) % Baso % (Auto) % Immature Gran # (Auto) (0.00-0.02) K/uL Neut # (Auto) (1.4-6.5) K/uL Lymph # (Auto) (1.2-3.4) K/uL Sterling # (Auto) (0.11-0.59) K/uL Eos # (Auto) (0-0.5) K/uL Baso # (Auto) (0-0.2) K/uL PT (9.0-12.0) Seconds INR (0.9-1.1) Sodium (136-145) mmol/L Potassium (3.5-5.1) mmol/L Chloride (98-107) mmol/L Carbon Dioxide (21-32) mmol/L Anion Gap (3-11) BUN (7-18) mg/dl Creatinine (0.6-1.2) mg/dl Est Cr Clr Drug Dosing Est GFR ( Amer) Est GFR (Non-Af Amer) BUN/Creatinine Ratio (10-20) Glucose (70-99) mg/dl Lactate 1.5 (0.4-2.0) mmol/L Calcium (8.5-10.1) mg/dl Total Bilirubin (0.2-1) mg/dl AST (15-37) U/L ALT (12-78) U/L Alkaline Phosphatase (45-117) U/L Troponin I (0-0.045) ng/ml NT-Pro-B Natriuret Pep 3521 H (0-1800) pg/ml Total Protein (6.4-8.2) gm/dl Albumin (3.4-5.0) gm/dl Globulin (2.5-4.0) gm/dl Albumin/Globulin Ratio (0.9-2) Influenza Type A (PCR) Neg for Influ A (Neg) Influenza Type B (PCR) Neg for Influ B (Neg) Imaging Data Radiologist's Impression: Radiology results as stated below per my review and the radiologist's interpretation: XR chest 1V portable CLINICAL HISTORY: Dyspnea dyspnea COMPARISON STUDY: 12/10/2018 FINDINGS: Interval development of diffuse bilateral parenchymal infiltrative change versus atypical pulmonary edema. Mild stable cardiomegaly. Diaphragms are smooth. Slight blunting left lateral costophrenic angle. IMPRESSION: Interval development of widespread bilateral parenchymal infiltrates versus atypical pulmonary edema. The above report was generated using voice recognition software. It may contain grammatical, syntax or spelling errors. Electronically signed by: Hussain Cody M.D. 02/04/2019 12:47 PM ECG Data Attestation: I personally reviewed and interpreted this ECG as follows: Indication: + SOB/dyspnea Rate (beats per minute): 95 Rhythm: + atrial fibrillation ECG Intervals/blocks: + Incomplete right bundle branch block ECG [place]: + Left axis deviation ECG ST segments: no ST elevation ECG Findings: + PVCs Comparison ECG Date: from (12/10/18) Change: no significant change Blood Pressure Blood Pressure Findings: Elevated blood pressure Blood Pressure Disposition: further management by hospitalist REJI Narrative Patient is an 78-year-old female with a past medical history including asthma, atrial fibrillation stating compliance with Xarelto, hypertension, anxiety, dyslipidemia presenting today from [facility] with worsening breathing over the past 2 to 3 days. Tried rescue inhaler yesterday with minimal improvement. Hypoxic in triage. Afebrile. Endorses some difficulty breathing and wheeze on exam. Trace pedal edema but no significant signs of fluid overload. Given nebulizer here. Basic labs, EKG, and chest x-ray were obtained. Doubt PE given anticoagulation. Lower suspicion for dissection. Benign abdomen. No significant clinical evidence of lower extremity edema or fluid overload. The x- ray shows concerning bilateral parenchymal infiltrates versus atypical pulmonary edema. Patient without significant leukocytosis here and again afebrile. Flu testing was ordered. Blood cultures and lactate obtained. Sputum culture ordered. Given Solu-Medrol and ceftriaxone. The multifocal pneumonia finding on the chest x-ray is concerning especially with hypoxia. Again anticoagulated already. Seems somewhat atypical distribution for fluid overload. Again covering with steroids in case possible reactive airway disease and antibiotics for possible pneumonia. proBNP is moderately elevated but again clinically does not appear to have significant right-sided fluid overload signs. Will admit for further care. Patient updated. Hospitalist contacted. Impression & Plan Multifocal pneumonia, Hypoxia, Asthma exacerbation Discharge Plan Visit Data Chief Complaint: Shortness of Breath/Dyspnea Stated Complaint: TROUBLE BREATHING WITH ASTHMA, 2-3 WEEKS ED Provider: Sam Norman Discharge Problem: Multifocal pneumonia, Hypoxia, Asthma exacerbation Patient Disposition: Being Evaluated by Hospitalist Discharge Instructions Interventions: ED Discharge Assessment Last Done: 02/04/19 17:24 Discharge Problem: Asthma exacerbation Qualifiers: Asthma severity: unspecified severity Asthma persistence: intermittent Qualified Code(s): J45.21 - Mild intermittent asthma with (acute) exacerbation The tommieibe's documentation has been prepared under my direction and personally reviewed by me in its entirety. I confirm that the note above accurately reflects all work, treatment, procedures, and medical decision making performed by me.
[2019-02-04] MEDS: RIVAROXABAN 20 MG TAB PO SCH (18:52)
[2019-02-04] MEDS ORDERED: DOXYCYCLINE HYCLATE 100 MG in DEXTROSE 5% 100 ML IV SCH (19:00)
[2019-02-04] MEDS: DICLOFENAC SOD 1% GEL 100 GM TUBE EXT SCH ×2 (19:34→21:42)
[2019-02-04] MEDS: ALBUT/IPRATROP 3MG/0.5MG NEB 3 ML VIAL NEB SCH ×2 (19:55→23:27)
[2019-02-04] MEDS: BUDESONIDE 0.5 MG/2 ML VIAL (PULMICORT) INH SCH (19:55)
[2019-02-04] MEDS ORDERED: BUDESONIDE/FORMOTEROL FUMARATE 160/4.5 60 PUFFS/INHALER INH SCH (21:00)
[2019-02-04] MEDS ORDERED: NON-FORMULARY MEDICATION (Melatonin 6 MG) PO SCH (21:00)
--- NOTE | 2019-02-04 21:41 | History & Physical Report ---
Date of Service February 04, 2019 Assessment & Plan (1) Multifocal pneumonia: Admit patient to the [facility] on telemetry. Vital signs every 4 hours. Ceftriaxone started continue at the word. Doxycycline 500 mg IV twice daily. Blood culture and sputum cultures pending. Replenish electrolytes. Supplemental oxygen to keep oxygenation above 92%. DVT prophylaxis Xarelto Full code Present on Admission?: Yes (2) Hypoxia: As the above Present on Admission?: Yes (3) Afib: Continue Xarelto Present on Admission?: Yes (4) Fall: PT OT Present on Admission?: Yes (5) Chronic constipation: Continue MiraLAX Present on Admission?: Yes (6) Hypothyroidism: Continue levothyroxine 75 MCG's p.o. daily Present on Admission?: Yes (7) Hypertension: Continue home medicine: Amlodipine 2.5 mg p.o. every morning. Present on Admission?: Yes History of Present Illness Chief Complaint: Pneumonia and shortness of breath Primary Care Provider: Luis Daniel Flores MD Patient is a 78 years old female with past medical history of hypertension, asthma, anxiety, thrombocytopenia, positive ARTEMIO, vitamin D deficiency, history of breast cancer, GERD, gastroparesis, hypothyroidism who presents to the emergency room with shortness of breath and cough for 2 days. Patient reports that it is hard for her to take a deep breath, stating that her chest felt tight and uncomfortable and has urge to cough. Patient reports nonproductive cough during this time. Patient denies fever, chills, chest pain, shortness of breath, abdominal pain, frequency, urgency. Patient was using her rescue inhaler last night for her symptoms to relieve her pain but that did not help her. Patient had 2 episodes of pneumonia in the past and she states that she was in the hospital months ago for a fall. Patient is on Xarelto for permanent atrial fibrillation.Labs are reviewed: WBC 7.79, hemoglobin 10.6, hematocrit 32.5, platelets 247, PT 13.5, APTT 1.3, sodium 137, potassium 3.4, BUN 13, creatinine 0.59, GFR, BNP 3437, procalcitonin 0.05. Chest x-ray: Interval development of widespread bilateral parenchymal infiltrates versus atypical pulmonary edema. Decision was made to admit patient to [facility] on telemetry for further evaluation and treatment of possible pneumonia versus congestive heart failure. Allergies Allergy/AdvReac Type Severity Reaction Status Date / Time cat dander Allergy Unknown ALLERGIES Verified 02/04/19 13:34 desloratadine Allergy Unknown Unknown Verified 02/04/19 13:34 house dust Allergy Unknown ALLERGIES Verified 02/04/19 13:34 mold Allergy Unknown Unknown Verified 02/04/19 13:34 Sulfa (Sulfonamide Allergy Unknown HIVES Verified 02/04/19 13:34 Antibiotics) amoxicillin AdvReac Mild GI SYMPTOMS Verified 02/04/19 13:34 atropine AdvReac Mild pain & Verified 02/04/19 13:34 diarrhea diphenoxylate AdvReac Mild pain & Verified 02/04/19 13:34 diarrhea moxifloxacin AdvReac Mild pain & Verified 02/04/19 13:34 diarrhea Cipro AdvReac Unknown GI SYMPTOMS Unverified 07/12/17 08:57 ciprofloxacin AdvReac Unknown GI SYMPTOMS Verified 02/04/19 13:34 clavulanic acid AdvReac Unknown GI SYMPTOMS Verified 02/04/19 13:34 erythromycin base AdvReac Unknown GI SYMPTOMS Verified 02/04/19 13:34 metronidazole AdvReac Unknown GI SYMPTOMS Verified 02/04/19 13:34 minocycline AdvReac Unknown GI SYMPTOMS Verified 02/04/19 13:34 Rsqwtma-Sat-Wne Reductase AdvReac Unknown Unknown Verified 02/04/19 13:34 Inhibitor Home Medications Home Medications Medication Instructions Recorded Confirmed Type amlodipine 2.5 mg tablet 2.5 mg PO QAM #30 tab 07/23/18 02/04/19 History cholecalciferol (vitamin D3) 25 1,000 units PO QAM cap 07/23/18 02/04/19 History mcg (1,000 unit) capsule budesonide 0.5 mg/2 mL suspension 0.5 mg INHALATION Q12H #120 ml 09/24/18 02/04/19 Rx for nebulization multivit with 1 tab PO QAM 09/24/18 02/04/19 History [id number]-iumc-NM-lutein 8 mg iron-400 mcg-300 mcg tablet ascorbic acid (vitamin C) 250 mg 250 mg PO QAM tab 10/30/18 02/04/19 History tablet cyanocobalamin (vitamin B-12) 100 100 mcg PO DAILY tab 10/30/18 02/04/19 History mcg tablet fexofenadine 180 mg tablet 180 mg PO DAILY tab 10/30/18 02/04/19 History levothyroxine 50 mcg tablet 50 mcg PO Q2D #15 tab 10/30/18 02/04/19 History levothyroxine 75 mcg tablet 75 mcg PO Q2D #15 tab 10/30/18 02/04/19 History albuterol sulfate [Ventolin HFA] 2 puff INHALATION QID PRN 11/13/18 02/04/19 History montelukast 10 mg tablet 10 mg PO DAILY 11/30/18 02/04/19 History pantoprazole 40 mg PO DAILY #60 tab 12/15/18 02/04/19 Rx acetaminophen 325 mg tablet 650 mg PO Q4H PRN tab 12/18/18 02/04/19 History vydcf-p-gdhptdgjlfsye 150 unit 1 tab PO DAILY PRN tab 01/22/19 02/04/19 History tablet calcium citrate 315 mg-vitamin D3 0.5 tab PO QAM tab 01/22/19 02/04/19 History 250 unit tablet coenzyme Q10 100 mg capsule 200 mg PO DAILY cap 01/22/19 02/04/19 History diclofenac sodium 1 % topical gel 4 gm TOP QID 01/22/19 02/04/19 History estradiol 10 mcg vaginal tablet 10 mcg PV QPM 01/22/19 02/04/19 History hydroxyzine HCl 10 mg tablet 10 mg PO Q8H PRN tab 01/22/19 02/04/19 History lidocaine 4 % topical patch 1 patch TOP DAILY 01/22/19 02/04/19 History lidocaine HCl 4 % topical liquid 4 % TOP UD 01/22/19 02/04/19 History roll-on melatonin 3 mg capsule 6 mg PO HS cap 01/22/19 02/04/19 History pimecrolimus 1 % topical cream 1 appln TOP QPM gm 01/22/19 02/04/19 History polyethylene glycol 3350 17 17 gm PO DAILY PRN 01/22/19 02/04/19 History gram/dose oral powder potassium chloride 20 mEq 20 meq PO DAILY 01/22/19 02/04/19 History tablet,extended release rivaroxaban [Xarelto] 20 mg PO QDD 02/04/19 02/04/19 History Past Med/Surg History Medical History Abnormal chest CT (Acute) Allergic rhinitis due to cats (Acute) Allergic rhinitis due to dust (Acute) Anxiety (Chronic) Asthma (Chronic) Bilateral impacted cerumen (Resolved) Bloating (Acute) Breast cancer (Resolved ~1998) "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 [id number] Status post completion of radiation therapy 03/30/1998" On 10/07/14 16:50 Teresa Karimi wrote "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 [id number] Status post completion of radiation therapy 03/30/1998" Chronic constipation (Acute) Chronic ITP (idiopathic thrombocytopenia) (Acute) Depression with anxiety (Acute) Dyslipidemia (Acute) Extrinsic asthma (Acute) Fatigue (Acute) Gastroparesis (Acute) Generalized anxiety disorder (Acute) History of esophageal reflux (Acute) Hypertension (Chronic) Hypothyroidism (Acute) Impacted cerumen of left ear (Acute) Irritable bowel syndrome (Acute) Peripheral edema (Acute) Permanent atrial fibrillation (Acute) Positive ARTEMIO (antinuclear antibody) (Chronic) Renal cyst (Chronic ~08/28/13) Rosacea (Acute) Sensorineural hearing loss (SNHL) of both ears (Acute) Somnolence, daytime (Acute) Telangiectasia (Acute) Thrombocytopenia (Chronic) Tinea pedis (Acute) Vaginal discharge (Acute) Vaginal yeast infection (Acute) Venous insufficiency (chronic) (peripheral) (Acute) Vitamin D deficiency (Acute) Surgical History History of appendectomy History of cholecystectomy History of dilation and curettage History of mastectomy History of tonsillectomy and adenoidectomy Family History Aunt Breast cancer Mother Renal failure Unknown Diabetes Hypertension Son Malignant neoplasm of brain Social History Preferred Language: [place] Communication Ability: Effective 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 Beliefs That Will Affect Care: None Current Living Situation: Legal Guardian Current Living Situation Comment: [facility] Other Information That Helps Us Care for You: No Feels Safe at Home: Yes Safety Concerns: Feels Safe At This Time Smoking Status: Former smoker Second Hand Exposure: No ; Hx Alcohol Use: No Hx Substance Use: No Seatbelt Use: always Review of Systems Review of Systems: All systems reviewed & are unremarkable except as noted in HPI & below Physical Exam Constitutional: WD/WN, vitals as above well developed and + ill appearing Eyes: PERRL, conjunctivae normal, anicteric sclerae ENMT: external ear and nose normal, oropharynx normal Neck: trachea midline, no thyromegaly Respiratory: normal respiratory effort Auscultation: + crackles and + wheezes Cardiovascular: Rate/Rhythm: + irregularly irregular Heart Sounds: normal S1 and normal S2 Palpation: + palpable S3 Vessels: + JVD and dorsalis pedis pulses present Extremities: + pedal edema Musculoskeletal: no cyanosis or clubbing, extremities motor strength 5/5 Skin: no rashes, warm and dry Neurologic: patellar DTR's 2+ bilat, sensation intact Psychiatric: A+Ox3, euthymic affect Genitourinary: no vaginal lesions, no adnexal mass Lymphatic: no cervical or axillary lymphadenopathy Results & Data Vital Signs (Past 12 Hours) Vital Signs Temp Pulse Pulse Pulse Resp BP BP 02/04/19 20:01 77 18 02/04/19 19:18 36.6 C 96 H 20 162/80 H 02/04/19 17:38 36.7 C 97 H 18 155/79 H 02/04/19 17:00 95 H 22 145/84 H 02/04/19 15:30 77 22 135/64 02/04/19 14:36 91 H 20 140/72 02/04/19 13:04 89 22 02/04/19 13:00 94 H 22 150/81 H 02/04/19 11:45 102 H 28 H 141/74 H Pulse Ox 02/04/19 20:01 93 02/04/19 19:18 92 02/04/19 17:38 91 02/04/19 17:00 91 02/04/19 15:30 91 02/04/19 14:36 92 02/04/19 13:04 94 02/04/19 13:00 91 02/04/19 11:45 89 L Code Status & VTE Plan Code Status Full code VTE Prophylaxis Plan VTE Prophylaxis will be ordered: Yes PG Care Time/CCT Total # of Minutes Spent Total Time Spent with Patient: Total time spent is greater than 50% in coordination of care (as documented) at patient's floor/unit and/or counseling patient: (1) Fall Encounter type: initial encounter Qualified Code(s): W19.XXXA - Unspecified fall, initial encounter
[2019-02-04] MEDS: ACETAMINOPHEN 325 MG TAB PO PRN (21:42)
[2019-02-04] MEDS ORDERED: POTASSIUM CHLORIDE 20 MEQ TABCR PO ONE (23:15)
[2019-02-04] MEDS: FUROSEMIDE 20 MG in SYRINGE 0 ML IV SCH (23:44)
[2019-02-05] MEDS: ALBUT/IPRATROP 3MG/0.5MG NEB 3 ML VIAL NEB SCH ×6 (03:33→23:29)
[2019-02-05] MEDS: LEVOTHYROXINE SODIUM 50 MCG TABLET PO SCH (05:48)
[2019-02-05] MEDS: BUDESONIDE 0.5 MG/2 ML VIAL (PULMICORT) INH SCH ×2 (07:20→19:21)
[2019-02-05] MEDS: DOXYCYCLINE HYCLATE 100 MG in DEXTROSE 5% 100 ML IV SCH ×2 (07:42→20:36)
[2019-02-05] MEDS: LIDOCAINE 5% 1 PATCH TD SCH (07:42)
[2019-02-05] MEDS: FUROSEMIDE 20 MG in SYRINGE 0 ML IV SCH ×2 (07:43→17:30)
[2019-02-05] MEDS: DICLOFENAC SOD 1% GEL 100 GM TUBE EXT SCH ×4 (07:43→20:33)
[2019-02-05] MEDS: POTASSIUM CHLORIDE 20 MEQ TABCR PO SCH (07:44)
[2019-02-05] MEDS: CYANOCOBALAMIN (VITAMIN B-12) 100 MCG TABLET PO SCH (07:44)
[2019-02-05] MEDS: ASCORBIC ACID 500 MG TAB PO SCH (07:44)
[2019-02-05] MEDS: AMLODIPINE BESYLATE 5 MG TAB PO SCH (07:44)
[2019-02-05] MEDS: CALCIUM 600MG + VIT D 400 IU TAB PO SCH (07:45)
[2019-02-05] MEDS: CEROVITE ADV FORMULA TAB PO SCH (07:45)
[2019-02-05] MEDS: CHOLECALCIFEROL 1,000 UNITS TAB PO SCH (07:45)
[2019-02-05] MEDS: FEXOFENADINE HCL 180 MG TAB PO SCH (07:45)
[2019-02-05 08:07] LABS: Hematocrit (blood only) 31.8 % (37-47); Hemoglobin 10.5 g/dL (12.0-16.0); Immature Granulocytes # (auto) 0.03 K/uL (0.00-0.02); Immature Granulocytes % (auto) 0.6 %; Lymphocytes # (auto) 0.39 K/uL (1.2-3.4); Lymphocytes % (auto) 7.3 %; Mean Corpuscular Volume 90.9 fL (80-100); Mean Platelet Volume 9.8 fL (7.4-10.4); Monocytes # (auto) 0.23 K/uL (0.11-0.59); Monocytes % (auto) 4.3 %; Neutrophils % (auto) 87.8 %; Platelet Count 236 K/uL (130-400); RDW Coefficient of Variation 16.7 % (11.5-14.5); RDW Standard Deviation 55.6 fL (36.4-46.3); White Blood Count 5.35 K/uL (4.8-10.8)
[2019-02-05 08:36] LABS: Albumin Level 2.8 gm/dl (3.4-5.0); BUN Creatinine Ratio 32.8 (10-20); Calcium 9.5 mg/dl (8.5-10.1); Creatinine Clr Calc Pharmacy 73.3 ml/min; Est GFR (African American) 98.2; Est GFR (Non-African American) 84.7; Potassium 3.5 mmol/L (3.5-5.1)
[2019-02-05 08:40] LABS: Albumin Globulin Ratio 0.6 (0.9-2); Bilirubin,Total 0.7 mg/dl (0.2-1); Globulin 4.9 gm/dl (2.5-4.0); Total Protein 7.7 gm/dl (6.4-8.2)
[2019-02-05 08:50] LABS: Estimated Average Glucose 123 mg/dl; Hemoglobin A1C 5.9 % (4.5-5.6)
[2019-02-05] MEDS ORDERED: POTASSIUM CHLORIDE 20 MEQ TABCR PO SCH (09:00)
[2019-02-05] MEDS ORDERED: NON-FORMULARY MEDICATION (Coenzyme Q10 200 MG) PO SCH (09:00)
[2019-02-05] MEDS: cefTRIAXone SODIUM 2,000 MG/70 ML BAG IV SCH (09:02)
[2019-02-05] MEDS: PANTOprazole 40 MG TAB PO SCH (10:22)
--- NOTE | 2019-02-05 14:17 | Hospitalist Progress Note ---
Date of Service February 05, 2019 Assessment & Plan (1) Multifocal pneumonia: - Uncertain if this is pneumonia vs pulmonary edema - given afebrile/no leukocytosis/neg procal if anything this could be a viral pneumonia resulting in fluid congestion - Pt does not carry a H/O CHF with last echo (Dec 2018) - EF 60-65%, no wall motion abnormalities, mild LVH, severe biatrial dilation, mild mitral regurg, mild pulm HTN at 48 mmHg -- No complaints of CP or ACS symptoms - does note that she has had progressive SOB but has always related this to her asthma over the past couple weeks; fluctuating weight but no obvious weight gain; does not examine in obvious heart failure - BNP appears to be chronically elevated but currently at nearly 5000 - Will repeat echo to determine for any new wall motion abnormalities or changes with EF/diastolic issues; she has been living at [facility] so maybe a component of processed foods/salt leading to fluid retention? - Will keep Ceftriaxone and Doxycycline on currently and monitor - again if anything this may favor a viral etiology with secondary acute pulmonary edema/congestion vs acute diastolic dysfunction?; as well she reports she thinks her HRs have been intermittently going faster and she reports she thinks she has been in A Fib more frequently since her last episode of pneumonia which maybe playing a role in fluid retention - Will continue Lasix 20 mg IV BID - obtain BMP in AM to make sure for any renal changes/electrolyte changes - Discussed with Jossy Dela Cruz PA-C - will await echocardiogram to see if this reveals true CHF vs other cause of pulmonary edema - can formally consult if necessary (2) Hypoxia: - Acute on chronic respiratory failure - currently still requiring supplemental O2 but improving since treatment began - Further treatment as above (3) Afib: - Largely rate controlled between 80-100; not requiring rate controlling medications - Xarelto 20 mg daily (4) Asthma: - No wheezing on examination; does not appear to be in an exacerbation at this time - Continue nebs; Budesonide BID; Singulair 10 mg daily (5) Hypothyroidism: - Continue Levothyroxine 50 mcg Q2D (6) Hypertension: - Continue Norvasc 2.5 mg daily Subjective Reports she can breath easier today but still requiring supplemental O2. She is in A Fib on monitor and thinks she has had some higher HRs over the past few weeks. She does report that her SOB has been more progressive than she has realized sp anning over a couple weeks and she always related this to her asthma. She states she does not feel the same way as she did when she had pneumonia in the past. She does not appear in overt failure and does not carry a dx of CHF or reporting fluid retention issues. She denies angina or recalling unusual CP/acid reflux. She states her weights have fluctuated between 164-169 and had one reading up to 180 which she thinks was likely error. She verbalizes no new complaints at this time. Review of Systems Constitutional: + fatigue; no fever, no chills and no weight gain Eyes: no worsening vision Ear, Nose, Mouth, Throat: no nasal congestion, no sore throat, no hoarseness and no dysphagia Respiratory: + cough and + dyspnea; no hemoptysis and no sputum production Cardiovascular: no chest pain, no palpitations, no lightheadedness and no edema Gastrointestinal: no abdominal pain, no nausea, no vomiting, no constipation and no diarrhea/loose stools Genitourinary: no dysuria Musculoskeletal: no body aches Integumentary: no rash Physical Exam Constitutional: WD/WN, vitals as above Eyes: + anicteric sclerae; no conjunctival abnormality ENMT: Ears: no hearing impairment Neck: trachea midline Respiratory: normal respiratory effort Auscultation: no wheezes course breath sounds largely of L lung and R Mid/Upper lung Cardiovascular: Rate/Rhythm: regular rate and + irregularly irregular Heart Sounds: no murmur Vessels: no JVD Gastrointestinal (Abdomen): Inspection/Auscultation: normal bowel sounds Percussion/Palpation: abdomen soft; abdomen nontender Musculoskeletal: no cyanosis or clubbing, extremities motor strength 5/5 Head/Neck/Chest: normocephalic and head atraumatic Skin: no rashes, warm and dry Neurologic: moves all extremities Psychiatric: Orientation: alert and oriented x 3 Results & Data Vital Signs (Past 12 Hours) Vital Signs Temp Pulse Pulse Pulse Resp BP Pulse Ox 02/05/19 11:11 99 H 16 91 02/05/19 09:26 79 02/05/19 07:21 73 16 92 02/05/19 07:16 36.6 C 81 20 145/75 H 93 02/05/19 04:00 36.4 C L 81 20 127/77 94 PG Care Time/CCT Total # of Minutes Spent Total Time Spent with Patient: Total time spent is greater than 50% in coordination of care (as documented) at patient's floor/unit and/or counseling patient:
[2019-02-05] MEDS: RIVAROXABAN 20 MG TAB PO SCH (17:30)
[2019-02-05] MEDS: MONTELUKAST SODIUM 10 MG TABLET PO SCH (20:33)
[2019-02-05] MEDS: ACETAMINOPHEN 325 MG TAB PO PRN (20:41)
[2019-02-06] MEDS: ALBUT/IPRATROP 3MG/0.5MG NEB 3 ML VIAL NEB SCH ×6 (04:02→22:55)
[2019-02-06] MEDS: LEVOTHYROXINE SODIUM 75 MCG TABLET PO SCH (06:28)
[2019-02-06 07:23] LABS: Basophils # (auto) 0.01 K/uL (0-0.2); Basophils % (auto) 0.1 %; Eosinophils # (auto) 0.03 K/uL (0-0.5); Eosinophils % (auto) 0.3 %; Hematocrit (blood only) 31.8 % (37-47); Hemoglobin 10.3 g/dL (12.0-16.0); Immature Granulocytes # (auto) 0.03 K/uL (0.00-0.02); Immature Granulocytes % (auto) 0.3 %; Lymphocytes # (auto) 1.08 K/uL (1.2-3.4); Lymphocytes % (auto) 10.7 %; Mean Corpuscular Hgb Conc 32.4 g/dL (32-36); Mean Corpuscular Volume 92.7 fL (80-100); Mean Platelet Volume 9.4 fL (7.4-10.4); Monocytes # (auto) 0.96 K/uL (0.11-0.59); Monocytes % (auto) 9.5 %; Neutrophils # (auto) 7.98 K/uL (1.4-6.5); Neutrophils % (auto) 79.1 %; Platelet Count 275 K/uL (130-400); RDW Coefficient of Variation 16.9 % (11.5-14.5); Red Blood Count 3.43 M/uL (4.2-5.4); White Blood Count 10.09 K/uL (4.8-10.8)
[2019-02-06] MEDS: BUDESONIDE 0.5 MG/2 ML VIAL (PULMICORT) INH SCH ×2 (07:26→19:14)
[2019-02-06 07:54] LABS: Albumin Level 2.9 gm/dl (3.4-5.0); BUN Creatinine Ratio 40.1 (10-20); Calcium 9.3 mg/dl (8.5-10.1); Creatinine Clr Calc Pharmacy 64.9 ml/min; Est GFR (African American) 93.2; Est GFR (Non-African American) 80.4; Potassium 3.3 mmol/L (3.5-5.1)
[2019-02-06 07:57] LABS: Albumin Globulin Ratio 0.6 (0.9-2); Bilirubin,Total 0.6 mg/dl (0.2-1); Globulin 4.5 gm/dl (2.5-4.0); Total Protein 7.4 gm/dl (6.4-8.2)
[2019-02-06] MEDS ORDERED: POTASSIUM CHLORIDE 20 MEQ TABCR PO ONE (08:13)
[2019-02-06] MEDS: CHOLECALCIFEROL 1,000 UNITS TAB PO SCH (08:59)
[2019-02-06] MEDS: cefTRIAXone SODIUM 2,000 MG/70 ML BAG IV SCH (08:59)
[2019-02-06] MEDS: ASCORBIC ACID 500 MG TAB PO SCH (08:59)
[2019-02-06] MEDS: CYANOCOBALAMIN (VITAMIN B-12) 100 MCG TABLET PO SCH (08:59)
[2019-02-06] MEDS: PANTOprazole 40 MG TAB PO SCH (08:59)
[2019-02-06] MEDS: LIDOCAINE 5% 1 PATCH TD SCH (08:59)
[2019-02-06] MEDS: AMLODIPINE BESYLATE 5 MG TAB PO SCH (09:00)
[2019-02-06] MEDS: CALCIUM 600MG + VIT D 400 IU TAB PO SCH (09:00)
[2019-02-06] MEDS: CEROVITE ADV FORMULA TAB PO SCH (09:00)
[2019-02-06] MEDS: POTASSIUM CHLORIDE 20 MEQ TABCR PO SCH (09:00)
[2019-02-06] MEDS: FUROSEMIDE 20 MG in SYRINGE 0 ML IV SCH (09:00)
[2019-02-06] MEDS: DICLOFENAC SOD 1% GEL 100 GM TUBE EXT SCH ×4 (09:01→20:47)
[2019-02-06] MEDS: FEXOFENADINE HCL 180 MG TAB PO SCH (09:01)
[2019-02-06] MEDS: DOXYCYCLINE HYCLATE 100 MG in DEXTROSE 5% 100 ML IV SCH ×2 (09:43→21:09)
--- NOTE | 2019-02-06 12:08 | Hospitalist Progress Note ---
Date of Service February 06, 2019 Assessment & Plan (1) Multifocal pneumonia: - Uncertain if this is pneumonia vs pulmonary edema - given afebrile/no leukocytosis/neg procal, it may be viral pneumonia & fluid congestion. - CXR on admission with bilateral parenchymal infiltrates vs. atypical pulm edema. - No known h/o CHF, repeat echo showed no evidence of systolic failure. - BNP is chronically elevated, ~5,000 on 02/05. - Continue Ceftriaxone and Doxycycline for empiric coverage of pneumonia. - Duonebs q4hr, Pulmicort BID scheduled with Albuterol prn. (2) Pulmonary edema: - CXR showed possible atypical pulm edema - may be related to secondary pulm congestion in setting of pneumonia vs. related to diastolic HF. - Echo in Dec 2018 showed EF 60-65%, no wall motion abnormalities, mild LVH, severe biatrial dilation, mild mitral regurg, mild pulm HTN at 48 mmHg. Repeat echo showed no change in systolic function. - BNP is chronically elevated, was close to 5,000 on 02/05; no indication for repeat level. - Monitor weight -- trending down slightly; monitor I/O's. - Received Lasix 20 mg IV this morning, will hold further doses due to elevated BUN. - Discussed case with Jossy Ordonez PA-C -- pulm edema may not be related to true HF exacerbation. (3) Hypoxia: - Has been requiring 2L via NC - related to pulm edema vs. PNA. - Wean oxygen as tolerated. (4) Afib: - Rate controlled; is not on rate controlling agents. - Continue Xarelto as prescribed. (5) Asthma: - Does not appear to be in an exacerbation at this time - Continue nebs; Budesonide BID; Singulair 10 mg daily (6) Hypothyroidism: - Continue Levothyroxine as prescribed. - TSH is 1.18. (7) Hypertension: - Continue Norvasc 2.5 mg daily. Dispo: Med/surg with tele; discharge pending improvement in respiratory issues. PT/OT evaluation ordered. Subjective Pt. c/o mild SOB at rest, has been requiring 2L via NC. Has productive cough -- slightly red tinged sputum this morning, pt. was concerned about bleeding. Carlos es chest pain, N/V, constipation or diarrhea. She has not been ambulating in hallways -- encouraged walking as tolerated. PT/OT ordered. Review of Systems Review of Systems: All systems reviewed & are unremarkable except as noted in HPI & below Constitutional: no fever, no chills, no fatigue, no weakness and no anorexia Respiratory: + cough, + dyspnea, + dyspnea on exertion and + sputum production; no hemoptysis and no wheezing Cardiovascular: no chest pain, no palpitations and no edema Gastrointestinal: no abdominal pain, no nausea and no constipation Genitourinary: no difficulty urinating Musculoskeletal: no back pain and no joint pain Integumentary: no non-healing lesions Physical Exam Physical Exam: General: Resting comfortably HEENT: NC/AT; PERRLA with EOMI; Olin conjunctiva, MMM. No erythema of posterior pharynx Neck: Supple and nontender Cardiac: RRR Lungs: on 2L via NC; crackles in bilat lung bases. Abdomen: Bowel normoactive X 4; Nontender to palpation Extremities: Warm. +1 bilat LE pitting edema noted. Neuro: No focal weakness Skin: No rash Results & Data Vital Signs (Past 12 Hours) Vital Signs Temp Pulse Resp BP Pulse Ox 02/06/19 11:17 94 H 20 91 02/06/19 07:36 36.6 C 79 20 143/77 H 92 02/06/19 07:28 85 18 93 02/06/19 03:02 36.5 C 73 18 132/74 93 Laboratory Results 02/06/19 02/06/19 Range/Units 06:56 06:56 WBC 10.09 (4.8-10.8) K/uL RBC 3.43 L (4.2-5.4) M/uL Hgb 10.3 L (12.0-16.0) g/dL Hct 31.8 L (37-47) % MCV 92.7 (80-100) fL MCH 30.0 (25-34) pg MCHC 32.4 (32-36) g/dL RDW Std Deviation 57.0 H (36.4-46.3) fL RDW Coeff of Reina 16.9 H (11.5-14.5) % Plt Count 275 (130-400) K/uL MPV 9.4 (7.4-10.4) fL Immature Gran % (Auto) 0.3 % Neut % (Auto) 79.1 % Lymph % (Auto) 10.7 % [place] % (Auto) 9.5 % Eos % (Auto) 0.3 % Baso % (Auto) 0.1 % Immature Gran # (Auto) 0.03 H (0.00-0.02) K/uL Neut # (Auto) 7.98 H (1.4-6.5) K/uL Lymph # (Auto) 1.08 L (1.2-3.4) K/uL [place] # (Auto) 0.96 H (0.11-0.59) K/uL Eos # (Auto) 0.03 (0-0.5) K/uL Baso # (Auto) 0.01 (0-0.2) K/uL Sodium 141 (136-145) mmol/L Potassium 3.3 L (3.5-5.1) mmol/L Chloride 106 (98-107) mmol/L Carbon Dioxide 24 (21-32) mmol/L Anion Gap 11.0 (3-11) BUN 29 H (7-18) mg/dl Creatinine 0.71 (0.6-1.2) mg/dl Est Cr Clr Drug Dosing 64.9 ml/min Est GFR ( Amer) 93.2 Est GFR (Non-Af Amer) 80.4 BUN/Creatinine Ratio 40.1 H (10-20) Glucose 95 (70-99) mg/dl Calcium 9.3 (8.5-10.1) mg/dl Total Bilirubin 0.6 (0.2-1) mg/dl AST 13 L (15-37) U/L ALT 19 (12-78) U/L Alkaline Phosphatase 101 (45-117) U/L Total Protein 7.4 (6.4-8.2) gm/dl Albumin 2.9 L (3.4-5.0) gm/dl Globulin 4.5 H (2.5-4.0) gm/dl Albumin/Globulin Ratio 0.6 L (0.9-2) PG Care Time/CCT Total # of Minutes Spent Total Time Spent with Patient: Total time spent is greater than 50% in coordination of care (as documented) at patient's floor/unit and/or counseling patient:
[2019-02-06] MEDS: RIVAROXABAN 20 MG TAB PO SCH (17:21)
[2019-02-06] MEDS: MONTELUKAST SODIUM 10 MG TABLET PO SCH (20:47)
[2019-02-06] MEDS: ACETAMINOPHEN 325 MG TAB PO PRN (20:54)
[2019-02-07] MEDS: ALBUT/IPRATROP 3MG/0.5MG NEB 3 ML VIAL NEB SCH ×5 (03:16→19:20)
[2019-02-07] MEDS: LEVOTHYROXINE SODIUM 50 MCG TABLET PO SCH (05:47)
[2019-02-07 06:25] LABS: Basophils # (auto) 0.02 K/uL (0-0.2); Basophils % (auto) 0.3 %; Eosinophils % (auto) 1.4 %; Hematocrit (blood only) 32.1 % (37-47); Hemoglobin 10.2 g/dL (12.0-16.0); Immature Granulocytes # (auto) 0.02 K/uL (0.00-0.02); Immature Granulocytes % (auto) 0.3 %; Lymphocytes # (auto) 0.86 K/uL (1.2-3.4); Lymphocytes % (auto) 11.9 %; Mean Corpuscular Hemoglobin 29.5 pg (25-34); Mean Corpuscular Hgb Conc 31.8 g/dL (32-36); Mean Corpuscular Volume 92.8 fL (80-100); Mean Platelet Volume 9.6 fL (7.4-10.4); Monocytes # (auto) 0.95 K/uL (0.11-0.59); Monocytes % (auto) 13.2 %; Neutrophils # (auto) 5.27 K/uL (1.4-6.5); Neutrophils % (auto) 72.9 %; Platelet Count 268 K/uL (130-400); RDW Coefficient of Variation 17.2 % (11.5-14.5); RDW Standard Deviation 57.6 fL (36.4-46.3); Red Blood Count 3.46 M/uL (4.2-5.4); White Blood Count 7.22 K/uL (4.8-10.8)
[2019-02-07 06:54] LABS: Albumin Level 2.6 gm/dl (3.4-5.0); BUN Creatinine Ratio 41.1 (10-20); Calcium 9.4 mg/dl (8.5-10.1); Est GFR (African American) 101.5; Est GFR (Non-African American) 87.6; Potassium 3.5 mmol/L (3.5-5.1)
[2019-02-07 06:57] LABS: Albumin Globulin Ratio 0.6 (0.9-2); Bilirubin,Total 0.7 mg/dl (0.2-1); Globulin 4.4 gm/dl (2.5-4.0)
[2019-02-07] MEDS: BUDESONIDE 0.5 MG/2 ML VIAL (PULMICORT) INH SCH ×2 (07:31→19:20)
--- NOTE | 2019-02-07 08:57 | XRay Report ---
TWO VIEW CHEST CLINICAL HISTORY: Hypoxia. FINDINGS: PA and lateral chest radiographs are compared to study dated 02/04/2019 and correlated with chest CT dated 08/28/2017. The heart is enlarged noting atherosclerotic calcification of the thoracic aorta. The pulmonary vasculature is noncongested. There is multifocal patchy airspace consolidation seen bilaterally with an upper lobe predominance. This appears slightly progressive as compared to 1 04/06/2018. No pleural effusion is identified. There is no pneumothorax. The skeletal structures are o steopenic. The bony thorax appears intact. IMPRESSION: 1. Cardiomegaly without clear radiographic evidence of congestive failure. 2. There is multifocal bilateral airspace consolidation an upper lobe predominance. This appears mode stly progressed from 02/04/2019. Multifocal pneumonia is favored with pulmonary edema considered less likely. Clinical correlation will be essential. 3. No pleural effusion is identified. Electronically signed by: David Marcum M.D. 02/07/2019 8:56 AM
[2019-02-07] MEDS: cefTRIAXone SODIUM 2,000 MG/70 ML BAG IV SCH (09:01)
[2019-02-07] MEDS: DICLOFENAC SOD 1% GEL 100 GM TUBE EXT SCH ×4 (09:02→22:26)
[2019-02-07] MEDS: ASCORBIC ACID 500 MG TAB PO SCH (09:02)
[2019-02-07] MEDS: CYANOCOBALAMIN (VITAMIN B-12) 100 MCG TABLET PO SCH (09:02)
[2019-02-07] MEDS: CHOLECALCIFEROL 1,000 UNITS TAB PO SCH (09:02)
[2019-02-07] MEDS: LIDOCAINE 5% 1 PATCH TD SCH (09:03)
[2019-02-07] MEDS: FEXOFENADINE HCL 180 MG TAB PO SCH (09:03)
[2019-02-07] MEDS: PANTOprazole 40 MG TAB PO SCH (09:03)
[2019-02-07] MEDS: CALCIUM 600MG + VIT D 400 IU TAB PO SCH (09:03)
[2019-02-07] MEDS: AMLODIPINE BESYLATE 5 MG TAB PO SCH (09:03)
[2019-02-07] MEDS: POTASSIUM CHLORIDE 20 MEQ TABCR PO SCH (09:03)
[2019-02-07] MEDS: CEROVITE ADV FORMULA TAB PO SCH (09:03)
[2019-02-07] MEDS ORDERED: PIPERACILL/TAZOBAC CONSULT ACTIVE PRN (09:28)
[2019-02-07] MEDS: DOXYCYCLINE HYCLATE 100 MG in DEXTROSE 5% 100 ML IV SCH (09:35)
[2019-02-07] MEDS ORDERED: PIPERACILLIN/TAZOBACTAM 3.375 GM in DEXTROSE 5% 100 ML IV ONE (09:45)
--- NOTE | 2019-02-07 10:48 | Hospitalist Progress Note ---
Date of Service February 07, 2019 Assessment & Plan (1) Multifocal pneumonia: - Uncertain if this is pneumonia vs pulmonary edema - given afebrile/no leukocytosis/neg procal, it may be viral pneumonia & fluid congestion. - CXR on admission with bilateral parenchymal infiltrates vs. atypical pulm edema. - Has had minimal improvement in resp issues; f/u CXR this morning showed multifocal bilat opacities, progressed compared to previous study. - CT chest w/o contrast pending. - No known h/o CHF, repeat echo showed no evidence of systolic failure. - BNP is chronically elevated, most recently ~5,000 on 02/05. - Convert Ceftriaxone to Zosyn for broader spectrum coverage; continue Doxy for atypicals and MRSA -- consider stronger MRSA coverage (MRSA swab pending) - Add Solu-medrol 40 mg IV BID for coverage of ?pneumonitis; convert to Pred 40 mg PO daily tomorrow. - Duonebs q4hr, Pulmicort BID scheduled with Albuterol prn. - Consult pulm for evaluation - has had minimal improvement in resp status. (2) Pulmonary edema: - CXR showed possible atypical pulm edema - may be related to secondary pulm congestion in setting of pneumonia vs. related to diastolic HF. - F/u CXR this morning with no evidence of congestive failure; CT chest pending. - Echo in Dec 2018 showed EF 60-65%, no wall motion abnormalities, mild LVH, severe biatrial dilation, mild mitral regurg, mild pulm HTN at 48 mmHg. Repeat echo showed no change in systolic function. - BNP is chronically elevated, was close to 5,000 on 02/05. - Monitor weight -- increased by ~4-5 kg over last 24 hours (not likely accurate) - Hold further doses of Lasix due to elevated BUN. - Discussed case with Jossy Ordonez PA-C -- pulm edema is not likely related to true HF exacerbation. (3) Hypoxia: - Has been requiring 2L via NC - related to PNA. - Wean oxygen as tolerated. (4) Afib: - Rate controlled; is not on rate controlling agents. - Continue Xarelto as prescribed. (5) Asthma: - Does not appear to be in an exacerbation at this time - Continue nebs; Budesonide BID; Singulair 10 mg daily (6) Hypothyroidism: - Continue Levothyroxine as prescribed. - TSH is 1.18. (7) Hypertension: - Continue Norvasc 2.5 mg daily. Dispo: Discharge pending improvement in respiratory issues. Consider pulmonary consult. Subjective Pt. c/o SOB at rest with increased wheezing this morning. She has a non- productive cough. Denies chest pain. C/o being thirsty d/t fluid restriction. Will add IV steroids and change abx for broader spectrum coverage due to lack of improvement. Has been requiring 2L via NC, previously on room air at home. Review of Systems Review of Systems: All systems reviewed & are unremarkable except as noted in HPI & below Constitutional: + fatigue and + weakness; no fever, no chills and no anorexia Respiratory: + cough, + chest congestion, + dyspnea, + dyspnea on exertion and + wheezing; no sputum production Cardiovascular: no chest pain, no palpitations and no edema Gastrointestinal: no abdominal pain and no nausea Genitourinary: no difficulty urinating Musculoskeletal: no back pain and no joint pain Integumentary: no non-healing lesions Physical Exam Physical Exam: General: Resting comfortably, no acute distress. HEENT: NC/AT; PERRLA with EOMI; Jay conjunctiva, MMM. No erythema of posterior pharynx Neck: Supple and nontender Cardiac: RRR Lungs: on 2L via NC; scattered wheezing throughout all lung waller. Abdomen: Bowel normoactive X 4; Nontender to palpation Extremities: Warm. No LE edema noted. Neuro: No focal weakness Skin: No rash Results & Data Vital Signs (Past 12 Hours) Vital Signs Temp Pulse Pulse Resp BP Pulse Ox 02/07/19 07:32 72 16 93 02/07/19 07:27 36.7 C 76 18 129/76 95 02/07/19 03:34 36.5 C 61 16 131/72 100 02/07/19 02:42 36.3 C L 83 18 127/69 94 02/07/19 02:12 72 02/06/19 23:14 36.6 C 64 16 132/71 93 02/06/19 22:57 95 H 18 95 Laboratory Results 02/07/19 02/07/19 02/07/19 Range/Units 07:47 06:00 06:00 WBC 7.22 (4.8-10.8) K/uL RBC 3.46 L (4.2-5.4) M/uL Hgb 10.2 L (12.0-16.0) g/dL Hct 32.1 L (37-47) % MCV 92.8 (80-100) fL MCH 29.5 (25-34) pg MCHC 31.8 L (32-36) g/dL RDW Std Deviation 57.6 H (36.4-46.3) fL RDW Coeff of Reina 17.2 H (11.5-14.5) % Plt Count 268 (130-400) K/uL MPV 9.6 (7.4-10.4) fL Immature Gran % (Auto) 0.3 % Neut % (Auto) 72.9 % Lymph % (Auto) 11.9 % Wayne % (Auto) 13.2 % Eos % (Auto) 1.4 % Baso % (Auto) 0.3 % Immature Gran # (Auto) 0.02 (0.00-0.02) K/uL Neut # (Auto) 5.27 (1.4-6.5) K/uL Lymph # (Auto) 0.86 L (1.2-3.4) K/uL Wayne # (Auto) 0.95 H (0.11-0.59) K/uL Eos # (Auto) 0.10 (0-0.5) K/uL Baso # (Auto) 0.02 (0-0.2) K/uL Sodium 139 (136-145) mmol/L Potassium 3.5 (3.5-5.1) mmol/L Chloride 106 (98-107) mmol/L Carbon Dioxide 26 (21-32) mmol/L Anion Gap 7.0 (3-11) BUN 23 H (7-18) mg/dl Creatinine 0.57 L (0.6-1.2) mg/dl Est Cr Clr Drug Dosing 83.0 ml/min Est GFR ( Amer) 101.5 Est GFR (Non-Af Amer) 87.6 BUN/Creatinine Ratio 41.1 H (10-20) Glucose 97 (70-99) mg/dl POC Glucose 108 H (70-99) Calcium 9.4 (8.5-10.1) mg/dl Total Bilirubin 0.7 (0.2-1) mg/dl AST 12 L (15-37) U/L ALT 15 (12-78) U/L Alkaline Phosphatase 93 (45-117) U/L Total Protein 7.0 (6.4-8.2) gm/dl Albumin 2.6 L (3.4-5.0) gm/dl Globulin 4.4 H (2.5-4.0) gm/dl Albumin/Globulin Ratio 0.6 L (0.9-2) PG Care Time/CCT Total # of Minutes Spent Total Time Spent with Patient: Total time spent is greater than 50% in coordination of care (as documented) at patient's floor/unit and/or counseling patient:
[2019-02-07] MEDS: methylPREDNISolone 40 MG in SYRINGE 0 ML IV SCH ×2 (11:21→22:25)
[2019-02-07] MEDS: PIPERACILLIN/TAZOBACTAM 3.375 GM in DEXTROSE 5% 100 ML IV SCH ×2 (13:29→22:28)
--- NOTE | 2019-02-07 15:09 | CT Scan Report ---
CT SCAN OF THE CHEST WITHOUT IV CONTRAST CLINICAL HISTORY: Hypoxia. COMPARISON STUDY: Chest x-ray dated 02/07/2019. Chest CT dated 08/28/2017. TECHNIQUE: CT scan of the thorax was performed from the thoracic inlet to the upper abdomen. Images are reviewed in the axial, sagittal, and coronal planes. IV contrast was not administered for this ex amination as per the referring clinician. A dose lowering technique was utilized adhering to the [facility]. CT DOSE: 229.35 mGy.cm FINDINGS: Thyroid: Atrophic. Thoracic aorta: There is atherosclerotic calcification of the thoracic aorta, which is normal in tiana tonja and demonstrates bovine variant arch anatomy. Heart: The heart is enlarged noting trace pericardial effusion. The coronary arteries and mitral kapil yari are densely calcified. The pulmonary trunk is dilated, measuring 3.7 cm in diameter. This suggest s pulmonary artery hypertension. Lungs and pleural spaces: Evaluation of the lung parenchyma is degraded by motion artifact. There are small left and trace right pleural effusions. Patchy consolidative change is identified throughout t he upper lobes with a "crazy paving" appearance. Milder patchy consolidation is seen in the lower lob es. The trachea and central airways are clear. Scattered calcified granulomas are observed. Mediastinum: There are numerous mildly enlarged mediastinal lymph nodes. Rhianna: Not well assessed without IV contrast. Axillae: There is no axillary lymphadenopathy. Upper abdomen: Partially visualized upper abdominal viscera is grossly unremarkable. Skeletal structures: The skeletal structures are osteopenic. Degenerative change and hyperkyphosis ar e noted in the thoracic spine. Advanced arthritic change is seen in the shoulders. No lytic or blasti c bony lesions are seen. IMPRESSION: 1. There is patchy consolidation identified throughout the upper lungs bilaterally, with milder patch y consolidation seen in the lower lobes. The appearance is nonspecific and this could represent an in fectious/inflammatory pneumonitis, atypical pulmonary edema, pulmonary hemorrhage, and/or ARDS. Clini vale correlation will be essential. 2. Cardiomegaly. 3. Small left and trace right pleural effusions. 4. Additional findings as above. Electronically signed by: David Marcum M.D. 02/07/2019 3:08 PM
[2019-02-07] MEDS: RIVAROXABAN 20 MG TAB PO SCH (17:28)
[2019-02-07] MEDS: DOXYCYCLINE HYCLATE 100 MG CAP PO SCH (22:26)
[2019-02-07] MEDS: MONTELUKAST SODIUM 10 MG TABLET PO SCH (22:26)
[2019-02-07] MEDS: ACETAMINOPHEN 325 MG TAB PO PRN (23:35)
[2019-02-08] MEDS: LEVOTHYROXINE SODIUM 75 MCG TABLET PO SCH (05:55)
[2019-02-08] MEDS: PIPERACILLIN/TAZOBACTAM 3.375 GM in DEXTROSE 5% 100 ML IV SCH (05:56)
[2019-02-08] MEDS: ASCORBIC ACID 500 MG TAB PO SCH (08:09)
[2019-02-08] MEDS: CYANOCOBALAMIN (VITAMIN B-12) 100 MCG TABLET PO SCH (08:09)
[2019-02-08] MEDS: FEXOFENADINE HCL 180 MG TAB PO SCH (08:09)
[2019-02-08] MEDS: CHOLECALCIFEROL 1,000 UNITS TAB PO SCH (08:10)
[2019-02-08] MEDS: DOXYCYCLINE HYCLATE 100 MG CAP PO SCH (08:10)
[2019-02-08] MEDS: predniSONE 20 MG TAB PO SCH (08:10)
[2019-02-08] MEDS: CEROVITE ADV FORMULA TAB PO SCH (08:11)
[2019-02-08] MEDS: LIDOCAINE 5% 1 PATCH TD SCH (08:11)
[2019-02-08] MEDS: PANTOprazole 40 MG TAB PO SCH (08:11)
[2019-02-08] MEDS: AMLODIPINE BESYLATE 5 MG TAB PO SCH (08:11)
[2019-02-08] MEDS: CALCIUM 600MG + VIT D 400 IU TAB PO SCH (08:11)
[2019-02-08] MEDS: DICLOFENAC SOD 1% GEL 100 GM TUBE EXT SCH ×4 (08:12→20:56)
[2019-02-08] MEDS: BUDESONIDE 0.5 MG/2 ML VIAL (PULMICORT) INH SCH ×2 (08:25→19:39)
[2019-02-08] MEDS: ALBUT/IPRATROP 3MG/0.5MG NEB 3 ML VIAL NEB SCH ×4 (08:25→19:39)
[2019-02-08 08:43] LABS: Hematocrit (blood only) 33.9 % (37-47); Immature Granulocytes # (auto) 0.02 K/uL (0.00-0.02); Immature Granulocytes % (auto) 0.3 %; Lymphocytes % (auto) 6.3 %; Mean Corpuscular Hemoglobin 29.9 pg (25-34); Mean Corpuscular Hgb Conc 32.4 g/dL (32-36); Mean Corpuscular Volume 92.1 fL (80-100); Mean Platelet Volume 9.4 fL (7.4-10.4); Monocytes # (auto) 0.22 K/uL (0.11-0.59); Monocytes % (auto) 3.4 %; Neutrophils # (auto) 5.75 K/uL (1.4-6.5); Platelet Count 291 K/uL (130-400); RDW Coefficient of Variation 16.6 % (11.5-14.5); RDW Standard Deviation 55.6 fL (36.4-46.3); Red Blood Count 3.68 M/uL (4.2-5.4); White Blood Count 6.39 K/uL (4.8-10.8)
[2019-02-08 09:20] LABS: Albumin Level 2.9 gm/dl (3.4-5.0); Calcium 9.6 mg/dl (8.5-10.1); Creatinine Clr Calc Pharmacy 78.2 ml/min; Est GFR (African American) 100.3; Est GFR (Non-African American) 86.6
[2019-02-08 09:23] LABS: Albumin Globulin Ratio 0.6 (0.9-2); Bilirubin,Total 0.6 mg/dl (0.2-1); Globulin 4.7 gm/dl (2.5-4.0); Total Protein 7.6 gm/dl (6.4-8.2)
--- NOTE | 2019-02-08 10:34 | Pulmonary Consultation ---
Date of Consultation February 08, 2019 Assessment & Plan (1) Abnormal CT scan of lung: Impression: 78-year-old female with PFTs demonstrating obstructive/restrictive physiology now with progressive multifocal airspace opacity. This does not appear consistent with pneumonia given her lack of response to antibiotics, lack of fever, and normal procalcitonin. Differential would include inflammatory etiologies including organizing pneumonia, ABPA, and pulmonary hemorrhage. She did have a urinalysis on presentation demonstrating hematuria but is unclear if this is persisting. No evidence of eosinophilia prior to initiation of steroids. She does not give a clear occupational or environmental exposure history concerning for ILD. Recommendations: 1. Abnormal CT scan: The patient is not particularly enthusiastic about pursuing bronchoscopy and she has already been started on steroids. At this point time it seems reasonable to conduct serological evaluation and continue the steroids and reassess her in 48 hours over the weekend. If she fails to show significant clinical and radiographic improvement, would have a low threshold for proceeding with bronchoscopy with BAL Sunday or Sunday. For now would continue with prednisone. Will discontinue Zosyn and place on azithromycin. 2. Will check serological evaluation including ARTEMIO, ESR, CRP, ANCA, rheumatoid factor, and anti-CCP as well as aldolase. Hypersensitivity panel also be checked. 3. Patient did have an elevated BNP. Atypical pulmonary edema would be on the differential. Her echocardiogram did not demonstrate any significant valvular dysfunction but I suspect there may be some diastolic dysfunction. Will place her on Lasix today and reassess over the next 24 hours as to whether or not this should be continued. 4. (2) Extrinsic asthma: (3) Hypoxia: History of Present Illness Attending Physician: Dom Neal, DO History of Present Illness Asked by Dr. Neal to evaluate this patient with an abnormal CT scan and hypoxemia. History is obtained from review the electronic medical record as well as interview the patient bedside and discussion with the attending hospitalist. The patient is a very pleasant 78-year-old female with a history of extrinsic asthma followed by Dr. bates in the outpatient clinic. The patient states that about a year ago she had an episode of difficult resolved pneumonia. She is unclear if she received steroids at that point time. She states there was discussion about bronchoscopy and a lung biopsy but this was never accomplished. She improved back to baseline but states that over the last month or so she has had issues with increasing shortness of breath and a dry nonproductive cough. She has not noted any wheezing. Her inhalers have not offered her a significant clinical benefit. She was seen in the emergency room and admitted to the hospitalist service about 5 days ago. She has been treated with broad-spectrum antibiotics but has not really improved. She continues to feel short of breath with any significant exertion and has had hypoxemia. Her x-ray demonstrated multifocal reticular opacities. A CT scan obtained yesterday demonstrated mosaic attenuation with some septal prominence. She has not noted palpitations or lower extremity edema. She has not had any lucila hemoptysis but again is not coughing any phlegm up so it is difficult for her to say. She denies fevers chills or night sweats. The patient recently moved to [place]. She does not relate any significant history of occupational or environmental exposures. She is retired. She has a remote history of tobacco abuse and quit smoking in the 80s. She is unclear if she has down pillows or down comforters. No hot tub exposures. She does not do any woodworking metalworking or welding. She does not have any pets, specifically birds at home. She has not noted any skin rashes or lesions. No family history of lung disease and no ill contacts. Allergies Allergy/AdvReac Type Severity Reaction Status Date / Time cat dander Allergy Unknown ALLERGIES Verified 02/04/19 13:34 desloratadine Allergy Unknown Unknown Verified 02/04/19 13:34 house dust Allergy Unknown ALLERGIES Verified 02/04/19 13:34 mold Allergy Unknown Unknown Verified 02/04/19 13:34 Sulfa (Sulfonamide Allergy Unknown HIVES Verified 02/04/19 13:34 Antibiotics) amoxicillin AdvReac Mild GI SYMPTOMS Verified 02/04/19 13:34 atropine AdvReac Mild pain & Verified 02/04/19 13:34 diarrhea diphenoxylate AdvReac Mild pain & Verified 02/04/19 13:34 diarrhea moxifloxacin AdvReac Mild pain & Verified 02/04/19 13:34 diarrhea Cipro AdvReac Unknown GI SYMPTOMS Unverified 07/12/17 08:57 ciprofloxacin AdvReac Unknown GI SYMPTOMS Verified 02/04/19 13:34 clavulanic acid AdvReac Unknown GI SYMPTOMS Verified 02/04/19 13:34 erythromycin base AdvReac Unknown GI SYMPTOMS Verified 02/04/19 13:34 metronidazole AdvReac Unknown GI SYMPTOMS Verified 02/04/19 13:34 minocycline AdvReac Unknown GI SYMPTOMS Verified 02/04/19 13:34 Akebkqa-Uxz-Uei Reductase AdvReac Unknown Unknown Verified 02/04/19 13:34 Inhibitor Home Medications Home Medications Medication Instructions Recorded Confirmed Type amlodipine 2.5 mg tablet 2.5 mg PO QAM #30 tab 07/23/18 02/04/19 History cholecalciferol (vitamin D3) 25 1,000 units PO QAM cap 07/23/18 02/04/19 History mcg (1,000 unit) capsule budesonide 0.5 mg/2 mL suspension 0.5 mg INHALATION Q12H #120 ml 09/24/18 02/04/19 Rx for nebulization multivit with 1 tab PO QAM 09/24/18 02/04/19 History wgkxxejp-gkdq-NT-lutein 8 mg iron-400 mcg-300 mcg tablet ascorbic acid (vitamin C) 250 mg 250 mg PO QAM tab 10/30/18 02/04/19 History tablet cyanocobalamin (vitamin B-12) 100 100 mcg PO DAILY tab 10/30/18 02/04/19 History mcg tablet fexofenadine 180 mg tablet 180 mg PO DAILY tab 10/30/18 02/04/19 History levothyroxine 50 mcg tablet 50 mcg PO Q2D #15 tab 10/30/18 02/04/19 History levothyroxine 75 mcg tablet 75 mcg PO Q2D #15 tab 10/30/18 02/04/19 History albuterol sulfate [Ventolin HFA] 2 puff INHALATION QID PRN 11/13/18 02/04/19 History montelukast 10 mg tablet 10 mg PO DAILY 11/30/18 02/04/19 History pantoprazole 40 mg PO DAILY #60 tab 12/15/18 02/04/19 Rx acetaminophen 325 mg tablet 650 mg PO Q4H PRN tab 12/18/18 02/04/19 History dfvoz-b-jmiogidanmtvu 150 unit 1 tab PO DAILY PRN tab 01/22/19 02/04/19 History tablet calcium citrate 315 mg-vitamin D3 0.5 tab PO QAM tab 01/22/19 02/04/19 History 250 unit tablet coenzyme Q10 100 mg capsule 200 mg PO DAILY cap 01/22/19 02/04/19 History diclofenac sodium 1 % topical gel 4 gm TOP QID 01/22/19 02/04/19 History estradiol 10 mcg vaginal tablet 10 mcg PV QPM 01/22/19 02/04/19 History hydroxyzine HCl 10 mg tablet 10 mg PO Q8H PRN tab 01/22/19 02/04/19 History lidocaine 4 % topical patch 1 patch TOP DAILY 01/22/19 02/04/19 History lidocaine HCl 4 % topical liquid 4 % TOP UD 01/22/19 02/04/19 History roll-on melatonin 3 mg capsule 6 mg PO HS cap 01/22/19 02/04/19 History pimecrolimus 1 % topical cream 1 appln TOP QPM gm 01/22/19 02/04/19 History polyethylene glycol 3350 17 17 gm PO DAILY PRN 01/22/19 02/04/19 History gram/dose oral powder potassium chloride 20 mEq 20 meq PO DAILY 01/22/19 02/04/19 History tablet,extended release rivaroxaban [Xarelto] 20 mg PO QDD 02/04/19 02/04/19 History Patient History Medical History Abnormal chest CT (Acute) Allergic rhinitis due to cats (Acute) Allergic rhinitis due to dust (Acute) Anxiety (Chronic) Asthma (Chronic) Bilateral impacted cerumen (Resolved) Bloating (Acute) Breast cancer (Resolved ~1998) "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 [id number] Status post completion of radiation therapy 03/30/1998" On 10/07/14 16:50 Teresa Karimi wrote "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 [id number] Status post completion of radiation therapy 03/30/1998" Chronic constipation (Acute) Chronic ITP (idiopathic thrombocytopenia) (Acute) Depression with anxiety (Acute) Dyslipidemia (Acute) Extrinsic asthma (Acute) Fatigue (Acute) Gastroparesis (Acute) Generalized anxiety disorder (Acute) History of esophageal reflux (Acute) Hypertension (Chronic) Hypothyroidism (Acute) Impacted cerumen of left ear (Acute) Irritable bowel syndrome (Acute) Peripheral edema (Acute) Permanent atrial fibrillation (Acute) Positive ARTEMIO (antinuclear antibody) (Chronic) Renal cyst (Chronic ~08/28/13) Rosacea (Acute) Sensorineural hearing loss (SNHL) of both ears (Acute) Somnolence, daytime (Acute) Telangiectasia (Acute) Thrombocytopenia (Chronic) Tinea pedis (Acute) Vaginal discharge (Acute) Vaginal yeast infection (Acute) Venous insufficiency (chronic) (peripheral) (Acute) Vitamin D deficiency (Acute) Surgical History History of appendectomy History of cholecystectomy History of dilation and curettage History of mastectomy History of tonsillectomy and adenoidectomy Family History Aunt Breast cancer Mother Renal failure Unknown Diabetes Hypertension Son Malignant neoplasm of brain Social History Preferred Language: Swedish Communication Ability: Effective [employer] Scout Required: No Beliefs That Will Affect Care: None Current Living Situation: Legal Guardian Current Living Situation Comment: [facility] Other Information That Helps Us Care for You: No Feels Safe at Home: Yes Safety Concerns: Feels Safe At This Time Smoking Status: Former smoker Second Hand Exposure: No ; Hx Alcohol Use: No Hx Substance Use: No Seatbelt Use: always Review of Systems Review of Systems: All systems reviewed & are unremarkable except as noted in HPI & below See H&P. No additions Physical Exam Constitutional: WD/WN, vitals as above Neck: trachea midline, no thyromegaly Respiratory: normal respiratory effort; no respiratory distress and no retractions Auscultation: + crackles Cardiovascular: RRR, no murmur, no edema Gastrointestinal (Abdomen): normal bowel sounds, soft, nontender, no hepatosplenomegaly Musculoskeletal: Extremities: extremities normal to inspection Skin: no rashes, warm and dry Neurologic: Nonfocal exam Lymphatic: no cervical lymphadenopathy Results & Data Vital Signs (Past 12 Hours) Vital Signs Temp Pulse Pulse Resp BP Pulse Ox 02/08/19 08:28 86 18 93 02/08/19 06:30 36.7 C 89 20 160/76 H 93 02/08/19 02:32 93 H 02/08/19 00:09 36.7 C 85 20 140/74 93 Laboratory Results 02/08/19 08:25 02/08/19 08:[address] of the chest from 02/[address] SCAN OF THE CHEST WITHOUT IV CONTRAST CLINICAL HISTORY: Hypoxia. COMPARISON STUDY: Chest x-ray dated 02/07/2019. Chest CT dated 08/28/2017. TECHNIQUE: CT scan of the thorax was performed from the thoracic inlet to the upper abdomen. Images are reviewed in the axial, sagittal, and coronal planes. IV contrast was not administered for this examination as per the referring clinician. A dose lowering technique was utilized adhering to the principles of ALARA. CT DOSE: 229.35 mGy.cm FINDINGS: Thyroid: Atrophic. Thoracic aorta: There is atherosclerotic calcification of the thoracic aorta, which is normal in caliber and demonstrates bovine variant arch anatomy. Heart: The heart is enlarged noting trace pericardial effusion. The coronary arteries and mitral annulus are densely calcified. The pulmonary trunk is dilated, measuring 3.7 cm in diameter. This suggests pulmonary artery hypertension. Lungs and pleural spaces: Evaluation of the lung parenchyma is degraded by motion artifact. There are small left and trace right pleural effusions. Patchy consolidative change is identified throughout the upper lobes with a "crazy paving" appearance. Milder patchy consolidation is seen in the lower lobes. The trachea and central airways are clear. Scattered calcified granulomas are observed. Mediastinum: There are numerous mildly enlarged mediastinal lymph nodes. Rhianna: Not well assessed without IV contrast. Axillae: There is no axillary lymphadenopathy. Upper abdomen: Partially visualized upper abdominal viscera is grossly unremarkable. Skeletal structures: The skeletal structures are osteopenic. Degenerative change and hyperkyphosis are noted in the thoracic spine. Advanced arthritic change is seen in the shoulders. No lytic or blastic bony lesions are seen. IMPRESSION: 1. There is patchy consolidation identified throughout the upper lungs bilaterally, with milder patchy consolidation seen in the lower lobes. The appearance is nonspecific and this could represent an infectious/inflammatory pneumonitis, atypical pulmonary edema, pulmonary hemorrhage, and/or ARDS. Clinical correlation will be essential. 2. Cardiomegaly. 3. Small left and trace right pleural effusions. 4. Additional findings as above. PG Care Time/CCT Total # of Minutes Spent Total Time Spent with Patient: Total time spent is greater than 50% in coordination of care (as documented) at patient's floor/unit and/or counseling patient:
[2019-02-08] MEDS ORDERED: FUROSEMIDE 40 MG TAB PO ONE (11:15)
[2019-02-08] MEDS: AZITHROMYCIN 250 MG TAB PO SCH (11:51)
[2019-02-08] MEDS ORDERED: ALBUT/IPRATROP 3MG/0.5MG NEB 3 ML VIAL NEB PRN (13:57)
[2019-02-08] MEDS: RIVAROXABAN 20 MG TAB PO SCH (17:14)
--- NOTE | 2019-02-08 17:37 | Hospitalist Progress Note ---
Date of Service February 08, 2019 Assessment & Plan (1) Multifocal pneumonia: - Uncertain if this is pneumonia vs pulmonary edema - given afebrile/no leukocytosis/neg procal, it may be viral pneumonia & fluid congestion? inflammatory? - CXR on admission with bilateral parenchymal infiltrates vs. atypical pulm edema; F/U CXR showed progression of these opacities - CTA - patchy consolidation in upper lungs b/l with milder patchy consolidation in lower lobes (infectious vs inflammatory vs atypical edema vs pulm hemorrhage vs ARDS) - No known H/O CHF; repeat echocardiogram without evidence of systolic/diastolic failure - Chronic elevations of BNP - Continue Zosyn at this time; Doxycyline for atypicals; MRSA swab negative - Continue Prednisone 40 mg daily; Duonebs, Pulmicort BID - Consult pulmonology - appreciate input - serological testing ordered (ESR > 90 CRP 9) all other pending; monitoring over next 48 hours - possible bronchoscopy on Sunday (2) Pulmonary edema: - Again true etiology is uncertain - no known systolic/diastolic CHF as cause of hypoxia - Chronic elevated BNP - Was given Lasix IV BID initially on admission; given Lasix 40 mg x 1 dose today with reassessment to consider further dosing (3) Hypoxia: - Has been requiring 2L via NC - related to above - Wean oxygen as tolerated (4) Afib: - Rate controlled; is not on rate controlling agents - Continue Xarelto 20 mg daily (5) Asthma: - Does not appear to be in an exacerbation at this time - Continue nebs; Budesonide BID; Singulair 10 mg daily (6) Hypothyroidism: - Continue Levothyroxine 75 mcg Q2D - TSH is 1.18. (7) Hypertension: - Continue Norvasc 2.5 mg daily Dispo: Currently at [facility] [place]; Possible bronchoscopy on Sunday pending clinical response Subjective Reports she feels a little bit better but has not been able to wean from supplemental O2. She continues to have a nonproductive cough that feels "tight" She remains in A Fib on monitor. She is tolerating diet without issue. Verbalizes no new complaints today Review of Systems Constitutional: + fatigue and + weakness; no fever and no chills Ear, Nose, Mouth, Throat: no nasal congestion, no sore throat, no hoarseness and no dysphagia Respiratory: + cough, + chest congestion, + dyspnea, + dyspnea on exertion and + wheezing; no sputum production Cardiovascular: no chest pain, no palpitations, no lightheadedness and no edema Gastrointestinal: no abdominal pain, no nausea, no vomiting, no constipation and no diarrhea/loose stools Genitourinary: no dysuria Musculoskeletal: no body aches Integumentary: no rash Physical Exam Constitutional: WD/WN, vitals as above Eyes: + anicteric sclerae; no conjunctival abnormality ENMT: Ears: no hearing impairment Neck: trachea midline Respiratory: normal respiratory effort Auscultation: + crackles (scattered); no wheezes improved aeration from my assessment on 02/05 as significantly course at that time Cardiovascular: Rate/Rhythm: regular rate and + irregularly irregular Heart Sounds: no murmur Vessels: no JVD Gastrointestinal (Abdomen): Inspection/Auscultation: normal bowel sounds Percussion/Palpation: abdomen soft; abdomen nontender Musculoskeletal: no cyanosis or clubbing, extremities motor strength 5/5 Head/Neck/Chest: normocephalic and head atraumatic Skin: no rashes, warm and dry Neurologic: moves all extremities Psychiatric: Orientation: alert and oriented x 3 Results & Data Vital Signs (Past 12 Hours) Vital Signs Temp Pulse Pulse Resp BP Pulse Ox 02/08/19 15:52 36.5 C 92 H 20 135/82 94 02/08/19 15:27 86 02/08/19 14:21 94 H 14 95 02/08/19 11:53 36.4 C L 88 20 132/76 95 02/08/19 11:35 87 02/08/19 08:28 86 18 93 02/08/19 06:30 36.7 C 89 20 160/76 H 93 PG Care Time/CCT Total # of Minutes Spent Total Time Spent with Patient: Total time spent is greater than 50% in coordination of care (as documented) at patient's floor/unit and/or counseling patient:
[2019-02-08] MEDS: MONTELUKAST SODIUM 10 MG TABLET PO SCH (20:56)
[2019-02-08] MEDS: HYDROCORTISONE HC 2.5% CRM 30GM TUBE EXT PRN (22:30)
[2019-02-08] MEDS: ACETAMINOPHEN 325 MG TAB PO PRN (23:17)
[2019-02-09] MEDS: LEVOTHYROXINE SODIUM 50 MCG TABLET PO SCH (06:16)
[2019-02-09] MEDS: ALBUT/IPRATROP 3MG/0.5MG NEB 3 ML VIAL NEB SCH ×4 (07:10→19:24)
[2019-02-09] MEDS: BUDESONIDE 0.5 MG/2 ML VIAL (PULMICORT) INH SCH ×2 (07:10→19:24)
[2019-02-09] MEDS: predniSONE 20 MG TAB PO SCH (07:51)
[2019-02-09] MEDS: CALCIUM 600MG + VIT D 400 IU TAB PO SCH (07:51)
[2019-02-09] MEDS: CEROVITE ADV FORMULA TAB PO SCH (07:51)
[2019-02-09] MEDS: AZITHROMYCIN 250 MG TAB PO SCH (07:51)
[2019-02-09] MEDS: CYANOCOBALAMIN (VITAMIN B-12) 100 MCG TABLET PO SCH (07:51)
[2019-02-09] MEDS: PANTOprazole 40 MG TAB PO SCH (07:51)
[2019-02-09] MEDS: FEXOFENADINE HCL 180 MG TAB PO SCH (07:51)
[2019-02-09] MEDS: HYDROCORTISONE HC 2.5% CRM 30GM TUBE EXT PRN ×2 (07:52→19:02)
[2019-02-09] MEDS: ASCORBIC ACID 500 MG TAB PO SCH (07:52)
[2019-02-09] MEDS: AMLODIPINE BESYLATE 5 MG TAB PO SCH (07:52)
[2019-02-09] MEDS: CHOLECALCIFEROL 1,000 UNITS TAB PO SCH (07:52)
[2019-02-09] MEDS: DICLOFENAC SOD 1% GEL 100 GM TUBE EXT SCH ×4 (07:53→21:07)
[2019-02-09 07:54] LABS: Eosinophils # (auto) 0.02 K/uL (0-0.5); Eosinophils % (auto) 0.3 %; Hematocrit (blood only) 33.7 % (37-47); Hemoglobin 10.7 g/dL (12.0-16.0); Immature Granulocytes # (auto) 0.03 K/uL (0.00-0.02); Immature Granulocytes % (auto) 0.5 %; Lymphocytes # (auto) 1.07 K/uL (1.2-3.4); Lymphocytes % (auto) 16.5 %; Mean Corpuscular Hemoglobin 29.6 pg (25-34); Mean Corpuscular Hgb Conc 31.8 g/dL (32-36); Mean Corpuscular Volume 93.4 fL (80-100); Mean Platelet Volume 9.2 fL (7.4-10.4); Monocytes # (auto) 0.71 K/uL (0.11-0.59); Neutrophils # (auto) 4.64 K/uL (1.4-6.5); Neutrophils % (auto) 71.7 %; Platelet Count 339 K/uL (130-400); RDW Coefficient of Variation 16.7 % (11.5-14.5); Red Blood Count 3.61 M/uL (4.2-5.4); White Blood Count 6.47 K/uL (4.8-10.8)
[2019-02-09] MEDS: LIDOCAINE 5% 1 PATCH TD SCH (07:54)
[2019-02-09 08:19] LABS: Albumin Level 2.7 gm/dl (3.4-5.0); BUN Creatinine Ratio 57.8 (10-20); Calcium 9.7 mg/dl (8.5-10.1); Creatinine Clr Calc Pharmacy 76.9 ml/min; Est GFR (African American) 99.8; Est GFR (Non-African American) 86.1; Potassium 3.7 mmol/L (3.5-5.1)
[2019-02-09 08:22] LABS: Albumin Globulin Ratio 0.6 (0.9-2); Bilirubin,Total 0.6 mg/dl (0.2-1); Globulin 4.4 gm/dl (2.5-4.0); Total Protein 7.1 gm/dl (6.4-8.2)
--- NOTE | 2019-02-09 10:33 | Pulmonology Progress Note ---
Date of Service February 09, 2019 Assessment & Plan (1) Abnormal CT scan of lung: Impression: 78-year-old female with PFTs demonstrating obstructive/restrictive physiology now with progressive multifocal airspace opacity. This does not appear consistent with pneumonia given her lack of respo nse to antibiotics, lack of fever, and normal procalcitonin. Differential would include inflammatory etiologies including organizing pneumonia, ABPA, and pulmonary hemorrhage. She did have a urinalysis on presentation demonstrating hematuria. No evidence of eosinophilia prior to initiation of steroids. She does not give a clear occupational or environmental exposure history concerning for ILD. Serological evaluation was positive for markedly increased inflammatory markers Recommendations: 1. Abnormal CT scan: Differential remains unchanged. Given the fact the patient is now having some mild hemoptysis I would favor pulmonary hemorrhage and recommended bronchoscopy with BAL. The patient is amenable to proceeding. This is tentatively been scheduled for 9:00 in the morning. We will discontinue her Xarelto and make n.p.o. after midnight. 2. Will check serological evaluation including ARTEMIO, ESR, CRP, ANCA, rheumatoid factor, and anti-CCP as well as aldolase. Hypersensitivity panel also be checked. Most of her labs are currently pending. 3. Patient did have an elevated BNP. Continue low-dose Lasix. 4. Would proceed with steroids for now. Repeat urinalysis for hematuria and check anti-GBM We will follow (2) Extrinsic asthma: (3) Hypoxia: Subjective Patient seen and examined. EMR reviewed. She states she is feeling slightly better since yesterday. She did cough and expectorate some dark blood. She is not had any chest pain. No wheezing. No fevers chills or night sweats. Review of Systems Review of Systems: Unchanged from prior Physical Exam Constitutional: WD/WN, vitals as above Neck: trachea midline, no thyromegaly Respiratory: normal respiratory effort; no respiratory distress and no retractions Auscultation: + crackles Cardiovascular: RRR, no murmur, no edema Gastrointestinal (Abdomen): normal bowel sounds, soft, nontender, no hepatosplenomegaly Musculoskeletal: Extremities: extremities normal to inspection Skin: no rashes, warm and dry Lymphatic: no cervical lymphadenopathy Results & Data Vital Signs (Past 12 Hours) Vital Signs Temp Pulse Pulse Pulse Resp BP Pulse Ox 02/09/19 09:57 71 02/09/19 07:12 71 16 97 02/09/19 07:05 36.8 C 68 20 119/68 94 02/09/19 00:08 132 H 02/08/19 23:05 36.4 C L 79 99 H 20 119/59 L 93 Laboratory Results 02/09/19 07:34 02/09/19 07:34 CPK 22 which is normal CRP elevated at 9.02 ESR elevated at greater than 90 Aldolase pending Anti-CCP negative ARTEMIO, ANCA, IgE, and rheumatoid factor currently pending. Diagnostic Findings No new imaging PG Care Time/CCT Total # of Minutes Spent Total Time Spent with Patient: Total time spent is greater than 50% in coordination of care (as documented) at patient's floor/unit and/or counseling patient:
[2019-02-09] MEDS ORDERED: SODIUM CHLORIDE 0.9% 500 ML IV SCH (10:45)
--- NOTE | 2019-02-09 17:11 | Hospitalist Progress Note ---
Date of Service February 09, 2019 Assessment & Plan (1) Multifocal pneumonia: - Uncertain of true etiology- given afebrile/no leukocytosis/neg procal it is unlikely to be infectious - CXR on admission with bilateral parenchymal infiltrates vs. atypical pulm edema; F/U CXR showed progression of these opacities - CTA - patchy consolidation in upper lungs b/l with milder patchy consolidation in lower lobes (infectious vs inflammatory vs atypical edema vs pulm hemorrhage vs ARDS) - No known H/O CHF; repeat echocardiogram without evidence of systolic/diastolic failure - Chronic elevations of BNP -utilized intermittent diuretics without significant change in presentation -BUN continues to rise but creatinine remained stable -we will continue to monitor for ongoing diuretic needs -Initially placed on ceftriaxone/doxy then was escalated to Zosyn -currently only on Zithromax at this time -Prednisone 40 mg daily; duo nebs and Pulmicort twice daily -Now reporting hemoptysis -question of possible pulmonary hemorrhage -she does report this is jellylike appearance which could support Klebsiella however no complete resolution of symptoms while on antibiotics and therefore hemorrhage may be the underlying culprit -Pulmonology following-appreciate input-serological testing ordered (ESR > 90 CRP 9) all others pending; currently scheduled for bronchoscopy on Sunday (2) Pulmonary edema: - Again true etiology is uncertain - no known systolic/diastolic CHF as cause of hypoxia - Chronic elevated BNP - Was given Lasix IV BID initially on admission; given Lasix 40 mg x 1 dose on 02/08 with reassessment to consider further dosing (3) Hypoxia: - Has been requiring 1-2L via NC - related to above - Wean oxygen as tolerated (4) Afib: - Rate controlled; is not on rate controlling agents - Xarelto 20 mg daily currently on hold due to plans of bronchoscopy (5) Asthma: - Does not appear to be in an exacerbation at this time - Continue nebs; Budesonide BID; Singulair 10 mg daily (6) Hypothyroidism: - Continue Levothyroxine 75 mcg Q2D - TSH is 1.18. (7) Hypertension: - Continue Norvasc 2.5 mg daily Dispo: Currently residing at [facility] likely bronchoscopy on Sunday Subjective Patient reports feeling a little bit better. However still has not been able to wean off of supplemental O2. She reports coughing dark red jellylike sputum this morning. She then stated a few days prior she had similar mucus but reports eating grape jelly and thought she just coughed this up. She states today she did not have any jelly prior to this episode. Given Xarelto and question of pulmonary hemorrhage this may be the underlying culprit? The plan is to do bronchoscopy tomorrow. She verbalizes no new complaints at this time. Review of Systems Constitutional: + fatigue; no fever and no chills Ear, Nose, Mouth, Throat: + hoarseness; no nasal congestion, no sore throat and no dysphagia Respiratory: + cough, + chest congestion, + dyspnea, + dyspnea on exertion, + hemoptysis and + sputum production (Minimal) Cardiovascular: no chest pain, no palpitations and no edema Gastrointestinal: no abdominal pain, no nausea, no vomiting, no constipation and no diarrhea/loose stools Genitourinary: no dysuria Musculoskeletal: no body aches Integumentary: no rash Physical Exam Constitutional: WD/WN, vitals as above Eyes: + anicteric sclerae; no conjunctival abnormality ENMT: Ears: no hearing impairment Neck: trachea midline Respiratory: normal respiratory effort Auscultation: + crackles (scattered); no wheezes Cardiovascular: Rate/Rhythm: regular rate and + irregularly irregular Heart Sounds: no murmur Vessels: no JVD Gastrointestinal (Abdomen): Inspection/Auscultation: normal bowel sounds Percussion/Palpation: abdomen soft; abdomen nontender Musculoskeletal: no cyanosis or clubbing, extremities motor strength 5/5 Head/Neck/Chest: normocephalic and head atraumatic Skin: no rashes, warm and dry Neurologic: moves all extremities Psychiatric: Orientation: alert and oriented x 3 Results & Data Vital Signs (Past 12 Hours) Vital Signs Temp Pulse Pulse Resp BP Pulse Ox 02/09/19 16:00 36.8 C 74 88 20 121/68 94 02/09/19 11:15 36.9 C 81 18 126/68 92 02/09/19 09:57 71 02/09/19 07:12 71 16 97 02/09/19 07:05 36.8 C 68 20 119/68 94 PG Care Time/CCT Total # of Minutes Spent Total Time Spent with Patient: Total time spent is greater than 50% in coordination of care (as documented) at patient's floor/unit and/or counseling patient:
[2019-02-09] MEDS: MONTELUKAST SODIUM 10 MG TABLET PO SCH (21:08)
[2019-02-10] MEDS: ACETAMINOPHEN 325 MG TAB PO PRN ×2 (00:01→22:09)
[2019-02-10] MEDS ORDERED: OXYMETAZOLINE 0.05% 30 ML BTL NAE SCH (06:00)
[2019-02-10] MEDS ORDERED: SODIUM CHLORIDE 0.9% 500 ML IV SCH (06:00)
[2019-02-10] MEDS: ALBUT/IPRATROP 3MG/0.5MG NEB 3 ML VIAL NEB SCH ×6 (07:16→19:35)
[2019-02-10] MEDS: BUDESONIDE 0.5 MG/2 ML VIAL (PULMICORT) INH SCH ×2 (07:16→19:35)
--- NOTE | 2019-02-10 09:12 | Pulmonology Progress Note ---
Date of Service February 10, 2019 Assessment & Plan (1) Abnormal CT scan of lung: Impression: 78-year-old female with PFTs demonstrating obstructive/restrictive physiology now with progressive multifocal airspace opacity. This does not appear consistent with pneumonia given her lack of respo nse to antibiotics, lack of fever, and normal procalcitonin. Differential would include inflammatory etiologies including organizing pneumonia, ABPA, and pulmonary hemorrhage. She did have a urinalysis on presentation demonstrating hematuria. No evidence of eosinophilia prior to initiation of steroids. She does not give a clear occupational or environmental exposure history concerning for ILD. Serological evaluation was positive for markedly increased inflammatory markers Recommendations: 1. Abnormal CT scan: Differential remains unchanged. Holding Xarelto. Bronchoscopy with BAL today.. 2. Serological studies currently pending. 3. Patient did have an elevated BNP. Continue low-dose Lasix. 4. Would proceed with steroids for now. We will follow (2) Extrinsic asthma: (3) Hypoxia: Subjective Patient with increasing oxygen requirement overnight. She is coughing and states that she expectorated a small amount of blood. No fevers or chills. No interval imaging done. Review of Systems Review of Systems: Unchanged from prior Physical Exam Constitutional: WD/WN, vitals as above Neck: trachea midline, no thyromegaly Respiratory: normal respiratory effort; no respiratory distress and no retractions Auscultation: + crackles Cardiovascular: RRR, no murmur, no edema Gastrointestinal (Abdomen): normal bowel sounds, soft, nontender, no hepatosplenomegaly Musculoskeletal: Extremities: extremities normal to inspection Skin: no rashes, warm and dry Lymphatic: no cervical lymphadenopathy Results & Data Vital Signs (Past 12 Hours) Vital Signs Temp Pulse Pulse Resp BP Pulse Ox 02/10/19 07:30 36.2 C L 103 H 16 154/78 H 97 02/10/19 07:17 66 18 97 02/10/19 01:12 110 H 02/09/19 23:58 36.4 C L 74 16 136/65 94 Laboratory Results 02/09/19 07:34 02/09/19 07:34 Diagnostic Findings No new films PG Care Time/CCT Total # of Minutes Spent Total Time Spent with Patient: Total time spent is greater than 50% in coordination of care (as documented) at patient's floor/unit and/or counseling patient:
--- NOTE | 2019-02-10 09:27 | Pre Anesthesia Assessment ---
Date of Service February 10, 2019 Pre Sedation Assessment Vital Signs Temp Pulse Pulse Resp BP Pulse Ox 02/10/19 07:30 36.2 C L 103 H 16 154/78 H 97 02/10/19 07:17 66 18 97 02/10/19 01:12 110 H 02/09/19 23:58 36.4 C L 74 16 136/65 94 02/09/19 19:58 36.5 C 94 H 20 123/67 93 02/09/19 19:30 90 20 96 02/09/19 16:00 36.8 C 74 88 20 121/68 94 02/09/19 11:15 36.9 C 81 18 126/68 92 02/09/19 09:57 71 Cardiovascular RRR, no murmur, no edema Respiratory + respiratory effort normal Pre-Sedation Airway Assessment Smoking Status: Former smoker Thyromental Distance: > or= 3.5 Finger Breadths Mallampati Class: II ASA: ASA2 Procedure Planning Contraindications for Sedation: none Current Medications Reviewed: Yes Notes The planned sedation has been discussed with the patient. Informed Consent was obtained. I have identified the patient, determined the appropriateness of se dation and have assessed the patient immediately prior to the procedure. All medicine(s) and interventions are by my order.
--- NOTE | 2019-02-10 09:42 | Post Anesthesia Assessment ---
Date of Service February 10, 2019 Post Sedation Assessment Vital Signs Temp Pulse Pulse Resp BP Pulse Ox 02/10/19 09:35 100 H 16 148/86 H 100 02/10/19 09:30 99 H 20 148/84 H 100 02/10/19 09:25 92 H 20 152/83 H 100 02/10/19 09:20 93 H 20 166/87 H 100 02/10/19 07:30 36.2 C L 103 H 16 154/78 H 97 02/10/19 07:17 66 18 97 02/10/19 01:12 110 H 02/09/19 23:58 36.4 C L 74 16 136/65 94 02/09/19 19:58 36.5 C 94 H 20 123/67 93 02/09/19 19:30 90 20 96 02/09/19 16:00 36.8 C 74 88 20 121/68 94 02/09/19 11:15 36.9 C 81 18 126/68 92 02/09/19 09:57 71 Discharge Sedation Level of Care: Fast Track Phase II Post Sedation Plan On clinical assessment, the patient appears to have tolerated the sedation without complications. Patient is recovering as anticipated. Patient will continue to be monitored by nursing and may be discharged when sedation discharge criteria are met per below protocol. Upon Completions of procedure up to 15 minutes continue every 5 minute vital signs and the P.A.R. score; then discharge to a Phase I or Fast Track to Phase II per the following guidelines: * Discharge Patient to appropriate Phase II area if PAR is 8 or greater or return to pre- procedure baseline. The post - procedure orders will be as directed. * If PAR score is less than 8 or not return to pre-procedure baseline then patient will follow Phase I monitoring till PAR is reached for Phase II. The Phase I may be done in procedure room or may call to secure a Phase I area. * If naloxone or flumazenil are used for reversal, hold in Phase I for continued monitoring from when last reversal dose was given for a minimum of 60 minutes or longer pending the nurse and/or physician discretion of patient condition before discharge to Phase II. Please call the Sedation Physician to re-evaluate and complete post-note for discharge to Phase II area. Do NOT discharge from procedure sedation or Phase 1 until post- sedation evaluation note is complete by procedure /sedation MD Sedation Discharge Instructions to be given to the patient at discharge to home.
[2019-02-10] MEDS ORDERED: LIDOCAINE HCL 2% (LOCAL) INJ 50 ML VIAL INFIL STA (09:46)
[2019-02-10] MEDS ORDERED: OXYMETAZOLINE 0.05% 30 ML BTL ONE (09:46)
[2019-02-10] MEDS ORDERED: LIDOCAINE 4% INH SOLN 4 ML BTL NAE ONE (09:46)
[2019-02-10] MEDS ORDERED: LIDOCAINE HCL VISCOUS SOLN 2% 15 ML UDC TOP ONE (09:46)
[2019-02-10] MEDS ORDERED: MIDAZOLAM HCL 1 MG/ML 2ML VIAL IV STA (09:46)
[2019-02-10] MEDS ORDERED: fentaNYL citrate 100 MCG/2 ML VIAL IV ONE (09:46)
[2019-02-10] MEDS ORDERED: LEVALBUTEROL HCL 1.25 MG/3 ML NEB NEB STA (09:46)
--- NOTE | 2019-02-10 09:46 | Procedure Note ---
Procedure Note: Bronchoscopy Procedure Procedure: Fiberoptic bronchoscopy Bronchoalveolar lavage Transbronchial lung biopsy without fluoroscopy, single lobe Conscious sedation Provider: Judd Goodrich MD Consent: Signed by patient and timeout verified prior to procedure. Sedation start: 0 924 Sedation end: 0 945 Conscious sedation: 75 mcg fentanyl, 3 mg Versed, topical lidocaine per protocol Procedure: Patient was brought to the bronchoscopy suite. Consent was verified. Appropriate radiographic studies had been reviewed prior to the procedure. Standard monitoring was applied. Oxygen was administered. After topical anesthesia of the airways per respiratory therapy protocol, the fiberoptic scope was advanced through the left nares. Oropharynx was unremarkable. Vocal cords were visualized and were normal in function and appearance. Topical anesthesia of the cords was achieved with instillation of lidocaine through the scope. Scope was then passed through the vocal cords. The trachea was midline and normal. Main deyanira was sharp. Anesthesia of the lower airways was achieved with instillation of lidocaine through the scope. A sequential and systematic examination of the lower airways was conducted. The right-sided airways were patent and the mucosa appeared normal. Left-sided airways were patent and the mucosa appeared normal. After the inspection bronchoscopy was completed, the scope was wedged into the left upper lobe. BAL was performed with instillation of 2 aliquots of 60 cc of sterile saline. Return was slightly yellow but did not appear bloody and had no evidence of pulmonary hemorrhage. The scope was then advanced into the right upper lobe. Biopsy forceps were extended through the anterior segment and 3 transbronchial biopsies were taken without fluoroscopic guidance. Minimal bleeding was encountered which was controlled with instillation of saline. Hemostasis was confirmed. The bronchoscope was then removed from the airways. The patient tolerated the procedure well without obvious complication. Patient was returned to the recovery room. Impression: 1. Normal inspection bronchoscopy without evidence of endobronchial lesion or mucosal abnormality. 2. Successful BAL right upper lobe without evidence of pulmonary hemorrhage. Await cytology and culture data. 3. Successful transbronchial biopsy anterior segment right upper lobe, await pathology.
--- NOTE | 2019-02-10 10:18 | XRay Report ---
SINGLE VIEW CHEST CLINICAL HISTORY: Status post biopsy. FINDINGS: An AP, portable, upright chest radiograph is compared to chest x-ray and chest CT dated . The examination is degraded by portable technique and patient rotation. The heart is enlarge d noting atherosclerotic calcification of the thoracic aorta. There is prominence of the pulmonary va sculature. There is multifocal patchy airspace consolidation seen bilaterally with an upper lobe pre dominance. This appears slightly progressive as compared to 02/04/2019. Trace pleural effusions are n oted. There is no pneumothorax. The skeletal structures are osteopenic. The bony thorax appears intac t. Advanced arthritic change is noted in the shoulders. Surgical clips are noted in the right axilla. IMPRESSION: 1. Cardiomegaly. 2. Again seen is multifocal bilateral airspace consolidation with an upper lobe predominance. This is unchanged from 02/07/2019 and clinical correlation will be essential. 3. Trace pleural effusions are noted. 4. No pneumothorax is seen post procedure. Electronically signed by: David Marcum M.D. 02/10/2019 10:16 AM
[2019-02-10] MEDS: CYANOCOBALAMIN (VITAMIN B-12) 100 MCG TABLET PO SCH (10:38)
[2019-02-10] MEDS: LIDOCAINE 5% 1 PATCH TD SCH (10:38)
[2019-02-10] MEDS: CEROVITE ADV FORMULA TAB PO SCH (10:38)
[2019-02-10] MEDS: ASCORBIC ACID 500 MG TAB PO SCH (10:39)
[2019-02-10] MEDS: CHOLECALCIFEROL 1,000 UNITS TAB PO SCH ×2 (10:39→12:35)
[2019-02-10] MEDS: DICLOFENAC SOD 1% GEL 100 GM TUBE EXT SCH ×4 (10:39→21:02)
[2019-02-10 12:01] LABS: Eosinophil Body Fluid Man 2 %; Fluid Mono/Macrophage 18 %; Lymphocyte Body Fluid Man 73 %; Neutrophil Body Fluid Man 7 %
--- NOTE | 2019-02-10 12:05 | Hospitalist Progress Note ---
Date of Service February 10, 2019 Assessment & Plan (1) Acute respiratory failure with hypoxia: etiology of such still uncertain. hence the bronch today with BAL and trans-bronchial biopsy. sed rate/crp markedly elevated suggestive of inflammatory lung process. remains on prednisone. finishing zithromax course. cont NC O2, supportive care. appreciate pulmonary consultation and recs. auto-immune w/u is pending. (2) Abnormal CT scan of lung: b/l upper and lower lobe infiltrates. infectious vs inflammatory vs other. s/p bronch today as above in "resp failure." cont prednisone. finish zithromax course. repeat CRP in am. (3) Afib: rates acceptable. xarelto on hold for bronch w/ biopsy. cont telemetry. (4) Depression with anxiety: controlled (5) Dyslipidemia: (6) Extrinsic asthma: w/ exacerbation cont prednisone cont bronchodilators cont inhaled steroids cont singulair (7) Hypothyroidism: recent TSH wnl cont synthroid according to home schedule (8) DVT prophylaxis: xarelto on hold due to bronch today PT, OT slowly progressing await cultures and path from bronch today Subjective saw the patient post-bronch she was resting comfortably reported no increasing shortness of breath, chest pain or other cardiopulmonary symptoms post-bronch she did have desaturation overnight and O2 had to be titrated for such telemetry w/ rate-controlled a.fib coughing still but not much sputum if any Review of Systems Constitutional: no fever and no chills Respiratory: + cough and + hemoptysis (occasional - small volume) Cardiovascular: no chest pain Gastrointestinal: no abdominal pain Physical Exam Constitutional: well developed and well nourished; no acute distress ENMT: external ear and nose normal, oropharynx normal Neck: trachea midline, no thyromegaly Respiratory: no respiratory distress Auscultation: + crackles (b/l anterior chest; b/l posterior lower lobes ); no diminished lung sounds and no wheezes Cardiovascular: Rate/Rhythm: regular rate and + irregularly irregular Heart Sounds: normal S1 and normal S2 Vessels: + JVD, posterior tibial pulses present and dorsalis pedis pulses present Extremities: no edema Gastrointestinal (Abdomen): normal bowel sounds, soft, nontender, no hepatosplenomegaly Psychiatric: A+Ox3, euthymic affect Results & Data Vital Signs (Past 12 Hours) Vital Signs Temp Pulse Pulse Resp BP Pulse Ox 02/10/19 10:01 98 H 20 141/89 H 94 02/10/19 09:56 97 H 20 147/79 H 94 02/10/19 09:51 102 H 16 139/88 93 02/10/19 09:46 114 H 20 155/83 H 93 02/10/19 09:41 107 H 20 147/100 H 96 02/10/19 09:40 108 H 20 134/104 H 95 02/10/19 09:35 100 H 16 148/86 H 100 02/10/19 09:30 99 H 20 148/84 H 100 02/10/19 09:25 92 H 20 152/83 H 100 02/10/19 09:20 93 H 20 166/87 H 100 02/10/19 07:30 36.2 C L 103 H 16 154/78 H 97 02/10/19 07:17 66 18 97 02/10/19 01:12 110 H Laboratory Results Laboratory Results - last 24 hr 02/10/19 09:35 Fluid Neutrophils % 7 Fluid Lymphocytes % 73 Fluid Eosinophils % 2 Fl Monocyt/Macrophag % 18 Fluid Other Cells % PG Care Time/CCT Total # of Minutes Spent Total Time Spent with Patient: Total time spent is greater than 50% in coordination of care (as documented) at patient's floor/unit and/or counseling patient: (1) Afib Atrial fibrillation type: permanent Qualified Code(s): I48.21 - Permanent atrial fibrillation (2) Extrinsic asthma Asthma severity: unspecified severity Asthma persistence: unspecified Asthma complication type: unspecified Qualified Code(s): J45.909 - Unspecified asthma, uncomplicated (3) Hypothyroidism Hypothyroidism type: acquired Qualified Code(s): E03.9 - Hypothyroidism, unspecified
[2019-02-10] MEDS: LEVOTHYROXINE SODIUM 75 MCG TABLET PO SCH (12:34)
[2019-02-10] MEDS: AZITHROMYCIN 250 MG TAB PO SCH (12:34)
[2019-02-10] MEDS: predniSONE 20 MG TAB PO SCH (12:34)
[2019-02-10] MEDS: PANTOprazole 40 MG TAB PO SCH (12:35)
[2019-02-10] MEDS: AMLODIPINE BESYLATE 5 MG TAB PO SCH (12:35)
[2019-02-10] MEDS: FEXOFENADINE HCL 180 MG TAB PO SCH (12:35)
[2019-02-10] MEDS: CALCIUM 600MG + VIT D 400 IU TAB PO SCH (12:36)
[2019-02-10] MEDS: MONTELUKAST SODIUM 10 MG TABLET PO SCH (20:45)
[2019-02-11] MEDS: LEVOTHYROXINE SODIUM 50 MCG TABLET PO SCH (06:04)
[2019-02-11] MEDS: ALBUT/IPRATROP 3MG/0.5MG NEB 3 ML VIAL NEB SCH ×5 (07:04→19:16)
[2019-02-11] MEDS: BUDESONIDE 0.5 MG/2 ML VIAL (PULMICORT) INH SCH ×2 (07:04→19:16)
[2019-02-11 08:01] LABS: BUN Creatinine Ratio 43.4 (10-20); C Reactive Protein 2.29 mg/dl (0-0.29); Calcium 8.8 mg/dl (8.5-10.1); Creatinine Clr Calc Pharmacy 88.8 ml/min; Est GFR (African American) 104.6; Est GFR (Non-African American) 90.2; Potassium 3.6 mmol/L (3.5-5.1)
[2019-02-11] MEDS: PANTOprazole 40 MG TAB PO SCH (08:36)
[2019-02-11] MEDS: FEXOFENADINE HCL 180 MG TAB PO SCH (08:36)
[2019-02-11] MEDS: CALCIUM 600MG + VIT D 400 IU TAB PO SCH (08:36)
[2019-02-11] MEDS: AZITHROMYCIN 250 MG TAB PO SCH (08:36)
[2019-02-11] MEDS: CYANOCOBALAMIN (VITAMIN B-12) 100 MCG TABLET PO SCH (08:37)
[2019-02-11] MEDS: AMLODIPINE BESYLATE 5 MG TAB PO SCH (08:37)
[2019-02-11] MEDS: CEROVITE ADV FORMULA TAB PO SCH (08:37)
[2019-02-11] MEDS: predniSONE 20 MG TAB PO SCH (08:37)
[2019-02-11] MEDS: ASCORBIC ACID 500 MG TAB PO SCH (08:38)
[2019-02-11] MEDS: DICLOFENAC SOD 1% GEL 100 GM TUBE EXT SCH ×4 (08:39→22:26)
[2019-02-11] MEDS: LIDOCAINE 5% 1 PATCH TD SCH (08:39)
--- NOTE | 2019-02-11 09:22 | Pulmonology Progress Note ---
Date of Service February 11, 2019 Assessment & Plan (1) Abnormal CT scan of lung: Impression: 78-year-old female with PFTs demonstrating obstructive/restrictive physiology now with progressive multifocal airspace opacity. This does not appear consistent with pneumonia given her lack of respo nse to antibiotics, lack of fever, and normal procalcitonin. Differential would include inflammatory etiologies including organizing pneumonia, ABPA, and pulmonary hemorrhage. She did have a urinalysis on presentation demonstrating hematuria. No evidence of eosinophilia prior to initiation of steroids. She does not give a clear occupational or environmental exposure history concerning for ILD. Serological evaluation was positive for markedly increased inflammatory markers Recommendations: 1. Abnormal CT scan: Status post bronchoscopy with BAL and transbronchial biopsies 02/10/2019. Gram stain negative. BAL was lymphocytic which would argue against acute infection. 2. Serological studies currently pending. 3. Patient did have an elevated BNP. Continue low-dose Lasix. 4. Would proceed with steroids for now. We will follow. Should have some pathologic data available within the next few days. If the patient is stable, she can be dismissed from the hospital with outpatient follow-up with Dr. bates. Would discharge her on prednisone 40 mg a day. P LOLIS prophylaxis also recommended (2) Extrinsic asthma: Asthma severity: unspecified severity Asthma persistence: unspeci fied Asthma complication type: unspecified Qualified Code(s): J45.909 - Unspecified asthma, uncomplicated (3) Hypoxia: Subjective Patient seen and examined this morning. She is done well post bronchoscopy. He r oxygen is back down to 2 L. She is not coughing or expectorating phlegm. No additional hemoptysis. No fevers or chills overnight. Her appetite is good. She denies chest pain. Review of Systems Review of Systems: Unchanged from prior Physical Exam Constitutional: WD/WN, vitals as above ENMT: Mallampati Class: II Neck: trachea midline, no thyromegaly Respiratory: normal respiratory effort; no respiratory distress and no retractions Auscultation: + crackles Cardiovascular: RRR, no murmur, no edema Gastrointestinal (Abdomen): normal bowel sounds, soft, nontender, no hepatosplenomegaly Musculoskeletal: Extremities: extremities normal to inspection Skin: no rashes, warm and dry Lymphatic: no cervical lymphadenopathy Results & Data Vital Signs (Past 12 Hours) Vital Signs Temp Pulse Pulse Resp BP Pulse Ox 02/11/19 07:25 36.9 C 73 18 152/71 H 95 02/11/19 07:04 76 16 95 02/11/19 03:57 91 H 02/11/19 03:49 36.6 C 84 19 132/79 94 02/10/19 23:20 36.6 C 103 H 19 115/69 95 Laboratory Results 02/09/19 07:34 02/11/19 07:10 Microbiology 02/09/19 08:30 Sputum, Expectorated Gram Stain - Final 02/09/19 08:30 Sputum, Expectorated Sputum Culture - Final Light normal divya. 02/10/19 09:35 Bronch Wash,Left Upper Lobe Acid Fast Bacilli Smear - Final 02/10/19 09:35 Bronch Wash,Left Upper Lobe Gram Stain - Final 02/04/19 14:27 Blood Aerobic Blood Culture - Final No growth in Aerobic bottle after 5 days. 02/04/19 14:27 Blood Anaerobic Blood Culture - Final No growth in Anaerobic bottle after 5 days. 02/04/19 14:14 Blood Aerobic Blood Culture - Final No growth in Aerobic bottle after 5 days. 02/04/19 14:14 Blood Anaerobic Blood Culture - Final No growth in Anaerobic bottle after 5 days. 02/04/19 17:03 Urine,Clean Catch Urine Culture - Final Escherichia coli BAL: Lymphocytic predominant. No organisms. Diagnostic Findings No new imaging PG Care Time/CCT Total # of Minutes Spent Total Time Spent with Patient: Total time spent is greater than 50% in coordination of care (as documented) at patient's floor/unit and/or counseling patient:
[2019-02-11] MEDS: RIVAROXABAN 20 MG TAB PO SCH (20:53)
[2019-02-11] MEDS: MONTELUKAST SODIUM 10 MG TABLET PO SCH (20:54)
[2019-02-11] MEDS: ACETAMINOPHEN 325 MG TAB PO PRN (20:56)
--- NOTE | 2019-02-11 20:57 | Hospitalist Progress Note ---
Date of Service February 11, 2019 Assessment & Plan (1) Acute respiratory failure with hypoxia: etiology of such still not fully certain but path from bronch with fibrosis/inflammation and elevated inflammatory markers suggest inflammatory lung process. infectious process unlikely. remains on prednisone. at discharge will remain on such. finishing zithromax course. day #4/5. cont NC O2, supportive care. will need formal 2-step at d/c (anticipate tomorrow am). appreciate pulmonary consultation and recs. auto-immune w/u is still pending. (2) Abnormal CT scan of lung: b/l upper and lower lobe infiltrates. infectious vs inflammatory vs other. s/p bronch. favoring inflammatory process hence ongoing prednisone use. finish zithromax course. repeat CRP is down today which is good sign. (3) Afib: rates acceptable. xarelto was on hold for bronch w/ biopsy. can resume xarelto 02/11. cont telemetry. (4) Depression with anxiety: controlled (5) Dyslipidemia: (6) Extrinsic asthma: w/ exacerbation but this is improving cont prednisone cont bronchodilators cont inhaled steroids cont singulair (7) Hypothyroidism: recent TSH wnl cont synthroid according to home schedule (8) DVT prophylaxis: resume xarelto today PT, OT recommending PCH level at d/c anticipate d/c back to [facility] on 02/12 2-step prior to discharge Subjective patient denies any complaints during my visit. resting comfortably. mild cough but no wheezing, no dyspnea, no hemoptysis. has numerous questions about her current situation, her O2, when she will be discharged, etc. telemetry stable overnight with good a.fib rate control. Review of Systems Constitutional: no fever, no chills and no anorexia Respiratory: + cough; no sputum production Cardiovascular: no chest pain Gastrointestinal: no abdominal pain Physical Exam Constitutional: well developed and well nourished; no acute distress ENMT: external ear and nose normal, oropharynx normal Neck: trachea midline, no thyromegaly Respiratory: no respiratory distress Auscultation: + crackles (b/l anterior chest - improved today; bibasilar posterior- also better); no diminished lung sounds and no wheezes Cardiovascular: Rate/Rhythm: regular rate and + irregularly irregular Heart Sounds: normal S1 and normal S2 Vessels: + JVD, posterior tibial pulses present and dorsalis pedis pulses present Extremities: no edema Gastrointestinal (Abdomen): normal bowel sounds, soft, nontender, no hepatosplenomegaly Psychiatric: A+Ox3, euthymic affect Results & Data Vital Signs (Past 12 Hours) Vital Signs Temp Pulse Pulse Resp BP Pulse Ox 02/11/19 19:34 86 18 97 02/11/19 19:06 36.5 C 78 18 149/70 H 94 02/11/19 15:39 75 02/11/19 15:34 36.8 C 72 18 133/70 96 02/11/19 11:28 36.5 C 79 18 144/67 H 94 02/11/19 11:25 78 16 95 Laboratory Results Laboratory Results - last 24 hr 02/11/19 07:10 Sodium 140 Potassium 3.6 Chloride 104 Carbon Dioxide 27 Anion Gap 9.0 BUN 23 H Creatinine 0.52 L Est Cr Clr Drug Dosing 88.8 Est GFR ( Amer) 104.6 Est GFR (Non-Af Amer) 90.2 BUN/Creatinine Ratio 43.4 H Glucose 94 Calcium 8.8 C-Reactive Protein 2.29 H Diagnostic Findings path report- fibrosis, chronic inflammation PG Care Time/CCT Total # of Minutes Spent Total Time Spent with Patient: Total time spent is greater than 50% in coordination of care (as documented) at patient's floor/unit and/or counseling patient: (1) Extrinsic asthma Asthma complication type: unspecified Asthma persistence: unspecified Asthma severity: unspecified severity Qualified Code(s): J45.909 - Unspecified asthma, uncomplicated (2) Afib Atrial fibrillation type: permanent Qualified Code(s): I48.21 - Permanent atrial fibrillation (3) Hypothyroidism Hypothyroidism type: acquired Qualified Code(s): E03.9 - Hypothyroidism, unspecified
[2019-02-12] MEDS: LEVOTHYROXINE SODIUM 75 MCG TABLET PO SCH (06:18)
[2019-02-12] MEDS: BUDESONIDE 0.5 MG/2 ML VIAL (PULMICORT) INH SCH (07:00)
[2019-02-12] MEDS: ALBUT/IPRATROP 3MG/0.5MG NEB 3 ML VIAL NEB SCH ×3 (07:00→15:17)
[2019-02-12] MEDS: CALCIUM 600MG + VIT D 400 IU TAB PO SCH (07:32)
[2019-02-12] MEDS: ASCORBIC ACID 500 MG TAB PO SCH (07:33)
[2019-02-12] MEDS: PANTOprazole 40 MG TAB PO SCH (07:33)
[2019-02-12] MEDS: AZITHROMYCIN 250 MG TAB PO SCH (07:33)
[2019-02-12] MEDS: AMLODIPINE BESYLATE 5 MG TAB PO SCH (07:33)
[2019-02-12] MEDS: CHOLECALCIFEROL 1,000 UNITS TAB PO SCH (07:33)
[2019-02-12] MEDS: CYANOCOBALAMIN (VITAMIN B-12) 100 MCG TABLET PO SCH (07:33)
[2019-02-12] MEDS: predniSONE 20 MG TAB PO SCH (07:33)
[2019-02-12] MEDS: FEXOFENADINE HCL 180 MG TAB PO SCH (07:34)
[2019-02-12] MEDS: LIDOCAINE 5% 1 PATCH TD SCH (07:34)
[2019-02-12] MEDS: CEROVITE ADV FORMULA TAB PO SCH (07:35)
[2019-02-12] MEDS: DICLOFENAC SOD 1% GEL 100 GM TUBE EXT SCH ×2 (07:35→13:52)
[2019-02-12] MEDS: RIVAROXABAN 20 MG TAB PO SCH (07:35)
[2019-02-12] MEDS ORDERED: SODIUM CHLORIDE 0.65% NA SOLN 45 ML (OCEAN) PRN (07:43)
--- NOTE | 2019-02-12 12:07 | Pulmonology Progress Note ---
Date of Service February 12, 2019 Assessment & Plan (1) Acute respiratory failure with hypoxia: Most likely multifactorial Previous PFTs with obstructive/restrictive physiology CT of the chest appears with acute airspace opacities. No significant response to antibiotics Continue day 5 of azithromycin today and then discontinue Discharge on prednisone daily with follow-up in the office pending immunological studies Two-step (6-minute walk test) demonstrates need for supplemental O2 2 L at rest and 3 L with exercise Discharge back to [facility] with supplemental oxygen -further outpatient work-up (2) Abnormal chest CT: Status post fiberoptic bronchoscopy with BAL and transbronchial biopsies 02/10/2019 No growth or pathology identified Atypical epithelial cells consistent with inflammatory process Outpatient follow-up 02/20/[address] Goodrich in the outpatient clinic (3) Extrinsic asthma: Does not appear to be acute exacerbation -no bronchospasm on exam today Continue with steroids for now Continue with bronchodilators including nebulizers as needed Outpatient follow-up Thank you for including us in the care of this patient. We will sign off at this time and follow outpatient as listed above. Please feel free to reconsult as needed Asthma severity: unspecified severity Asthma persistence: unspecified Asthma complication type: unspecified Qualified Code(s): J45.909 - Unspecified asthma, uncomplicated Subjective Attending: Dr. Goodrich I saw Ms. Malone at bedside this morning. She is very frustrated with her sudden need of oxygen and increased nebulizer treatments, etc. She is slated to be transferred back to [facility] today. I did discuss with her that she has most likely an inflammatory process that hopefully will improve over several weeks. She is also aware that we are still waiting for immunology results to rule out autoimmune disease. She is fatigued and continues with a nonproductive cough. She denies any fever, chills, sweats, rigors. She admits to needing assisted living but can perform ADLs. She has no acute complaints today. I informed her of her follow-up appoint with Dr. Goodrich 02/20/2019 at 3 PM in the outpatient clinic. Review of Systems Review of Systems: All systems reviewed & are unremarkable except as noted in HPI & below Physical Exam Physical Exam: GENERAL : No acute distress EYES: No icterus, gaze conjugate NOSE: No evidence of epistaxis MOUTH: No lesions or candidiasis NECK: Supple LUNGS: CTA B/L, no wheezes, rales or rhonchi HEART: Regular, rate controlled ABDOMEN: Soft, NT, ND, BS Present EXTREMITIES: No LE edema, pedal pulses intact NEURO: A&OX3 Results & Data Vital Signs (Past 12 Hours) Vital Signs Temp Pulse Pulse Pulse Pulse Pulse Pulse 02/12/19 11:28 90 02/12/19 11:25 90 99 H 90 110 H 02/12/19 07:17 36.6 C 64 02/12/19 07:05 79 02/12/19 03:14 36.5 C 73 02/12/19 01:14 70 Pulse Resp Resp Resp Resp Resp Resp 02/12/19 11:28 21 02/12/19 11:25 82 18 22 22 20 18 02/12/19 07:17 16 02/12/19 07:05 19 02/12/19 03:14 19 02/12/19 01:14 BP Pulse Ox Pulse Ox Pulse Ox Pulse Ox Pulse Ox Pulse Ox 02/12/19 11:28 95 02/12/19 11:25 92 94 86 L 91 87 L 02/12/19 07:17 151/78 H 95 02/12/19 07:05 98 02/12/19 03:14 139/73 97 02/12/19 01:14 Laboratory Results 02/09/19 07:34 02/11/19 07:10 No laboratory results today Diagnostic Findings Most recent imaging 02/10/2019. No indication for further imaging prior to discharge PG Care Time/CCT Total # of Minutes Spent Total Time Spent with Patient: Total time spent is greater than 50% in coordination of care (as documented) at patient's floor/unit and/or counseling patient: 30 minutes including long discussion with patient about her frustrations with supplemental O2 requirements and lack of improvement over the last several days.
--- NOTE | 2019-02-12 14:23 | Discharge Summary ---
Date of Service date of admission - February 04, 2019 date of discharge - February 12, 2019 Admission HPI Per Admitting Provider Patient is a 78 years old female with past medical history of hypertension, asthma, anxiety, thrombocytopenia, positive ARTEMIO, vitamin D deficiency, history of breast cancer, GERD, gastroparesis, hypothyroidism who presents to the emergency room with shortness of breath and cough for 2 days. Patient reports that it is hard for her to take a deep breath, stating that her chest felt tight and uncomfortable and has urge to cough. Patient reports nonproductive cough during this time. Patient denies fever, chills, chest pain, shortness of breath, abdominal pain, frequency, urgency. Patient was using her rescue inhaler last night for her symptoms to relieve her pain but that did not help her. Patient had 2 episodes of pneumonia in the past and she states that she was in the hospital months ago for a fall. Patient is on Xarelto for permanent atrial fibrillation.Labs are reviewed: WBC 7.79, hemoglobin 10.6, hematocrit 32.5, platelets 247, PT 13.5, APTT 1.3, sodium 137, potassium 3.4, BUN 13, creatinine 0.59, GFR, BNP 3437, procalcitonin 0.05. Chest x-ray: Interval development of widespread bilateral parenchymal infiltrates versus atypical pulm onary edema. Decision was made to admit patient to [facility] on telemetry for further evaluation and treatment of possible pneumonia versus congestive heart failure. Principal Diagnosis acute hypoxic respiratory failure 2nd to suspected inflammatory lung disease process Discharge Exam Constitutional well developed and well nourished; no acute distress ENMT external ear and nose normal, oropharynx normal Neck trachea midline, no thyromegaly Respiratory no respiratory distress Auscultation: + crackles (b/l anterior chest - fine, minimal; bibasilar posterior - fine); no diminished lung sounds and no wheezes Cardiovascular Rate/Rhythm: regular rate and + irregularly irregular Heart Sounds: normal S1 and normal S2 Vessels: + JVD, posterior tibial pulses present and dorsalis pedis pulses present Extremities: no edema Gastrointestinal (Abdomen) normal bowel sounds, soft, nontender, no hepatosplenomegaly Psychiatric Orientation: alert and oriented x 3 Mood: + depressed mood Discharge Data Allergies Allergy/AdvReac Type Severity Reaction Status Date / Time cat dander Allergy Unknown ALLERGIES Verified 02/04/19 13:34 desloratadine Allergy Unknown Unknown Verified 02/04/19 13:34 house dust Allergy Unknown ALLERGIES Verified 02/04/19 13:34 mold Allergy Unknown Unknown Verified 02/04/19 13:34 Sulfa (Sulfonamide Allergy Unknown HIVES Verified 02/04/19 13:34 Antibiotics) amoxicillin AdvReac Mild GI SYMPTOMS Verified 02/04/19 13:34 atropine AdvReac Mild pain & Verified 02/04/19 13:34 diarrhea diphenoxylate AdvReac Mild pain & Verified 02/04/19 13:34 diarrhea moxifloxacin AdvReac Mild pain & Verified 02/04/19 13:34 diarrhea Cipro AdvReac Unknown GI SYMPTOMS Unverified 07/12/17 08:57 ciprofloxacin AdvReac Unknown GI SYMPTOMS Verified 02/04/19 13:34 clavulanic acid AdvReac Unknown GI SYMPTOMS Verified 02/04/19 13:34 erythromycin base AdvReac Unknown GI SYMPTOMS Verified 02/04/19 13:34 metronidazole AdvReac Unknown GI SYMPTOMS Verified 02/04/19 13:34 minocycline AdvReac Unknown GI SYMPTOMS Verified 02/04/19 13:34 Srtequi-Aay-Fml Reductase AdvReac Unknown Unknown Verified 02/04/19 13:34 Inhibitor Consultations pulmonary - Pro Goodrich MD Procedures Performed Operation Date: 02/10/19 Bronchoscopy with transbronchial biopsy - Judd Goodrich MD Ordered Studies CT chest - IMPRESSION: 1. There is patchy consolidation identified throughout the upper lungs bilaterally, with milder patchy consolidation seen in the lower lobes. The appearance is nonspecific and this could represent an infectious/inflammatory pneumonitis, atypical pulmonary edema, pulmonary hemorrhage, and/or ARDS. Clini vale correlation will be essential. 2. Cardiomegaly. 3. Small left and trace right pleural effusions. Hospital Course (1) Acute respiratory failure with hypoxia: Despite multiple courses of antibiotics (as outpatient and inpatient) she had little improvement with such. She received IV steroids, nebs, etc for her pulmonary symptoms. She underwent CT chest showing both upper & lower lobe infiltrates. Etiology of such still not fully certain but pathology from bronchoscopy biopsy showed fibrosis/inflammation. She also had elevated inflammatory markers which suggested inflammatory lung process. Finished a full course of zithromax while hospitalized to cover atypical pathogens, if present. Numerous labs for autoimmune disease were pending at time of discharge. She required NC O2 the entire stay. Thus, 2-step was completed showing 2 L NC O2 at rest and 3 L with activity. She will discharge on prednisone 40mg once daily until she sees Dr Goodrich in the pulmonary clinic. It is hoped the NC O2 is temporary. Dr Goodrich will manage her steroids in the office. (2) Abnormal CT scan of lung: b/l upper and lower lobe infiltrates. infectious vs inflammatory vs other. s/p bronch. favoring inflammatory process hence ongoing prednisone use. finished zithromax course while hospitalized. (3) Afib: rates were acceptable while hospitalized. xarelto was on hold for bronch w/ biopsy but it was resumed on 02/11/19 in the evening. (4) Depression with anxiety: Patient voiced despondency, sadness and wanting to give up. She denied actual suicidal ideation. She declined a consult with psychiatry, and declined any SSRI/other depression treatment. She refused speaking to a counselor or home inspector post-discharge. Much of her sadness stemmed from having to use oxygen at discharge. She also reported not liking her current living situation. She will need follow-up for her mood disorder post-discharge with her PCP. (5) Dyslipidemia: (6) Extrinsic asthma: With exacerbation but this improved while hospitalized. She will continue prednisone at 40mg/day for suspected inflammatory lung disease. It will NOT be tapered at this time. cont bronchodilators cont inhaled steroids cont singulair (7) Hypothyroidism: recent TSH wnl cont synthroid according to home schedule Total Time Total Time Spent Total Time Spent (In Minutes): 45 Total Time Includes: Examination of the Patient, Discharge Planning, Medication Reconciliation and Communication With Other Providers Discharge Plan Discharge Items Patient Disposition: Personal Group Home Reason For Visit: Possible PNEUMONIA Discharge Diagnosis: Suspected inflammatory lung disorder/condition - exact trigger or cause uncertain Activity: As commented below Activity Comment: gradually increase activities over the next 1-2 weeks; nothing strenuous Non-emergency contact: Primary Care Provider and Furnace Puncher Call non-emergency contact if: you have any medication questions, your symptoms worsen and you have a fever Follow-up/Referrals: Luis Daniel Flores MD [Primary Care Provider] - 02/17/19 2:00 pm (Please, follow up at Dr. Flores's office with his associate, Dana Estrella PA-C, on SundayFebruary 17 at 2:00 pm. *If you need to change this appointment, call their office at [phone].) Judd Goodrich MD [Physician] - 02/20/19 3:00 pm (Follow up at [facility] Pulmonology Office with Dr. Goodrich to review immunology labs on February 20 at 3:00 pm. *The office is located in [address] of [facility], next to this hospital. If you need to change this appointment, call the office at [phone].) Diet: Heart Healthy Addtl Attending Provider Instructions: You were admitted to the hospital for cough and shortness of breath. Your chest x-ray at time of admission was initially suggestive of either pneumonia or fluid build-up in the lungs. Despite treating for pneumonia and giving you diuretics (water pills) for possible fluid you still felt poorly. You were ultimately started on steroids for your breathing and the lung specialist (television host) saw you in consultation. He recommended a bronchoscopy to sample the lung and to perform a biopsy for diagnosis. All the available information to date suggests that your current lung condition is due to an "inflammatory lung disease." We do not know the cause or trigger of this. Thus far it does NOT appear that your recent symptoms were due to an infection. At this time we recommend - 1. prednisone 40mg once daily for your lungs; take your first dose TOMORROW on 02/13/19. Take the prednisone with food. 2. oxygen via nasal cannula -- 2 liters at rest and 3 liters with activity/walking. Be sure to bring the portable unit when you leave your home. 3. duonebs - 1 treatment every 6 hours as needed for cough/wheeze/shortness of breath. 4. consider seeing your home inspector or a counselor to talk about your depression, anxiety, etc. 5. consider talking to Dr Flores about medication for your depression/anxiety. Follow-up -- see separate section. Return to [facility] if -- * you have fevers over 100.5 degrees * you have worsening shortness of breath * you are coughing up blood * you have to turn the oxygen up on your tanks to make your breathing more comfortable * any other concerns Pending Studies at Discharge: Yes Studies:: autoimmune labs (to determine the cause of the inflammation in the lungs) Stand-Alone Forms: My [employer], Smoking Cessation Skilled Items Patient informed of condition?: Yes DNR: No Discharge Level of Care: Other Communicable Disease: No Discharge Prognosis: Stable Lines: None Urinary Catheter: No Medications and DC Order Prescriptions: New prednisone 20 mg Tablet 40 mg PO DAILY Qty: 60 RF: 0 ipratropium-albuterol 0.5 mg-3 mg(2.5 mg base)/3 mL solution for nebulization 3 ml INH Q6H PRN (Reason: wheezing) Qty: 180 RF: 1 (DME) Oxygen Home Liters Per Minute See Rx Instructions .ROUTE .MEDSUPPLY Qty: 1 RF: 0 Continued acetaminophen [Mapap (acetaminophen)] 325 mg tablet 650 mg PO Q4H PRN (Reason: pain) RF: 0 Aspercreme (lidocaine) 4 % liquid roll-on 4 % TOP UD RF: 0 Beano 150 unit tablet 1 tab PO DAILY PRN (Reason: Indigestion) RF: 0 calcium citrate-vitamin D3 315 mg- 250 unit tablet 0.5 tab PO QAM RF: 0 coenzyme Q10 100 mg capsule 200 mg PO DAILY RF: 0 diclofenac sodium 1 % gel 4 gm TOP QID RF: 0 pimecrolimus [Elidel] 1 % cream 1 appln TOP QPM RF: 0 hydroxyzine HCl 10 mg tablet 10 mg PO Q8H PRN (Reason: Anxiety) RF: 0 lidocaine 4 % adhesive patch,medicated 1 patch TOP DAILY RF: 0 melatonin 3 mg capsule 6 mg PO HS RF: 0 polyethylene glycol 3350 [Miralax] 17 gram/dose powder 17 gm PO DAILY PRN (Reason: Constipation) RF: 0 potassium chloride 20 mEq tablet extended release 20 meq PO DAILY RF: 0 estradiol [Yuvafem] 10 mcg tablet 10 mcg PV QPM RF: 0 amlodipine 2.5 mg tablet 2.5 mg PO QAM Qty: 30 RF: 0 cholecalciferol (vitamin D3) 1,000 unit capsule 1,000 units PO QAM RF: 0 Centrum Silver Women 8 mg iron-400 mcg-300 mcg tablet 1 tab PO QAM RF: 0 budesonide 0.5 mg/2 mL suspension for nebulization 0.5 mg inhalation Q12H Qty: 120 RF: 5 ascorbic acid (vitamin C) 250 mg tablet 250 mg PO QAM RF: 0 cyanocobalamin (vitamin B-12) 100 mcg tablet 100 mcg PO DAILY RF: 0 fexofenadine 180 mg tablet 180 mg PO DAILY RF: 0 levothyroxine 50 mcg tablet 50 mcg PO Q2D Qty: 15 RF: 0 levothyroxine 75 mcg tablet 75 mcg PO Q2D Qty: 15 RF: 0 pantoprazole 40 mg tablet,delayed release (DR/EC) 40 mg PO DAILY Qty: 60 RF: 0 albuterol sulfate [Ventolin HFA] 90 mcg/actuation HFA aerosol inhaler 2 puff inhalation QID PRN (Reason: Shortness Of Breath Or Wheezing) RF: 0 montelukast [Singulair] 10 mg tablet 10 mg PO DAILY RF: 0 Xarelto 20 mg tablet 20 mg PO QDD RF: 0 Discharge Orders: Discharge Order (Routine); Ordered 02/12/19 Ordered By: Gennaro Menjivar Admission Data Admit Date/Time: 02/04/19 14:44 Attending Provider: Gennaro Menjivar Admit Provider: Cirsto Savage Primary Care Provider: Luis Daniel Flores Other Providers: Cristo Savage ; Judd Goodrich Other Interventions: Discharge Summary Assessment (RN) Last Done: 02/12/19 14:33 DC Date/Time DO NOT enter until pt leaves facility: 02/12/19 17:56
== END 2019-02-12 17:56 | disposition home or self-care (01) | DRG 193 ==
LOC: ED 11:41 → 2W 14:44 → SUATTDRO 14:44 → 2W 17:24

== ENCOUNTER 2019-04-27 07:01 | Inpatient (IN) ==
[2019-04-27] MEDS ORDERED: ALBUT/IPRATROP 3MG/0.5MG NEB 3 ML VIAL INH STA (07:27)
[2019-04-27 07:36] LABS: Basophils # (auto) 0.02 K/uL (0-0.2); Basophils % (auto) 0.1 %; Eosinophils # (auto) 0.04 K/uL (0-0.5); Eosinophils % (auto) 0.3 %; Hematocrit (blood only) 29.7 % (37-47); Hemoglobin 9.1 g/dL (12.0-16.0); Immature Granulocytes # (auto) 0.06 K/uL (0.00-0.02); Immature Granulocytes % (auto) 0.4 %; Lymphocytes # (auto) 1.33 K/uL (1.2-3.4); Lymphocytes % (auto) 8.8 %; Mean Corpuscular Hemoglobin 24.8 pg (25-34); Mean Corpuscular Hgb Conc 30.6 g/dL (32-36); Mean Corpuscular Volume 80.9 fL (80-100); Mean Platelet Volume 8.7 fL (7.4-10.4); Monocytes % (auto) 11.3 %; Neutrophils % (auto) 79.1 %; Platelet Count 515 K/uL (130-400); RDW Coefficient of Variation 15.8 % (11.5-14.5); RDW Standard Deviation 46.9 fL (36.4-46.3); Red Blood Count 3.67 M/uL (4.2-5.4); White Blood Count 15.05 K/uL (4.8-10.8)
[2019-04-27] MEDS ORDERED: PIPERACILLIN/TAZOBACTAM 3.375 GM in DEXTROSE 5% 100 ML/100 ML BAG IV STA (07:37)
[2019-04-27] MEDS ORDERED: PIPERACILL/TAZOBAC CONSULT ACTIVE PRN (07:37)
[2019-04-27] MEDS ORDERED: VANCOMYCIN HCL 2,000 MG in SODIUM CHLORIDE 0.9% 500 ML IV ONE (07:39)
[2019-04-27] MEDS ORDERED: VANCOMYCIN CONSULT ACTIVE PRN (07:39)
[2019-04-27] MEDS ORDERED: MoRPHine SULFATE 4 MG/ML 1 ML CARP\\VIAL IV STA (07:44)
--- NOTE | 2019-04-27 07:52 | Emergency Department Note ---
Entered by Valeria Bell acting as a scribe for Rakan Rao DO History of Present Illness General Chief complaint: Respiratory Problems Stated complaint: breathing diff. Time Seen by Provider: 04/27/19 07:08 Source: patient Mode of arrival: EMS Limitations: no limitations History of Present Illness Provider complaint: Shortness of breath Onset (ago): week(s) 2 Location: chest Pain Consistency: + intermittent Quality: + other (shortness of breath) Associated symptoms: + other (Additional symptoms: leg swelling, leg pain) The patient is an 78 year old female with a history of breast cancer, asthma, dyslipidemia, gastroparesis, hypertension, hypothyroidism, esophageal reflux, IBS, atrial fibrillation, appendectomy, cholecystectomy, and mastectomy who presents to the Emergency Room with complaints of intermittent shortness of breath starting 2 weeks ago. Per nurse, the patient was diagnosed with pneumonia 2 days ago and placed on Levaquin and Prednisone. The patient was reportedly 77% on her regular 2L O2 at [facility] today, so she was subsequently referred to the ED. The nurse explains that the patient also complains of leg swelling and leg pain. She states that the patient denies a history of COPD and CHF. Home Medications Home Medications Medication Instructions Recorded Confirmed Type cholecalciferol (vitamin D3) 25 1,000 units PO QAM cap 07/23/18 04/27/19 History mcg (1,000 unit) capsule multivit with 1 tab PO QAM 09/24/18 04/27/19 History lfrlevps-cxhs-IR-lutein 8 mg iron-400 mcg-300 mcg tablet ascorbic acid (vitamin C) 250 mg 250 mg PO QAM tab 10/30/18 04/27/19 History tablet cyanocobalamin (vitamin B-12) 100 100 mcg PO DAILY tab 10/30/18 04/27/19 History mcg tablet fexofenadine 180 mg tablet 180 mg PO DAILY tab 10/30/18 04/27/19 History albuterol sulfate [Ventolin HFA] 2 puff INHALATION QID PRN 11/13/18 04/27/19 History acetaminophen 325 mg tablet 650 mg PO Q4H PRN tab 12/18/18 04/27/19 History ofrqp-x-ulrvqufvxhtvn 150 unit 1 tab PO DAILY PRN tab 01/22/19 04/27/19 History tablet calcium citrate 315 mg-vitamin D3 0.5 tab PO QAM tab 01/22/19 04/27/19 History 250 unit tablet coenzyme Q10 100 mg capsule 200 mg PO DAILY cap 01/22/19 04/27/19 History estradiol 10 mcg vaginal tablet 10 mcg PV QPM 01/22/19 04/27/19 History hydroxyzine HCl 10 mg tablet 10 mg PO Q8H PRN tab 01/22/19 04/27/19 History melatonin 3 mg capsule 6 mg PO HS cap 01/22/19 04/27/19 History pimecrolimus 1 % topical cream 1 appln TOP QPM gm 01/22/19 04/27/19 History polyethylene glycol 3350 17 17 gm PO DAILY PRN 01/22/19 04/27/19 History gram/dose oral powder Oxygen Home #1 ea 02/12/19 04/25/19 Rx prednisone 40 mg PO DAILY #60 tab 02/12/19 04/27/19 Rx wheelchair #1 02/19/19 04/25/19 History amlodipine 2.5 mg tablet 2.5 mg PO QAM #30 tab 03/18/19 04/27/19 Rx levothyroxine 50 mcg tablet 50 mcg PO Q2D #15 tab 03/18/19 04/27/19 Rx levothyroxine 75 mcg tablet 75 mcg PO Q2D #15 tab 03/18/19 04/27/19 Rx montelukast 10 mg tablet 10 mg PO DAILY #30 tab 03/18/19 04/27/19 Rx pantoprazole 40 mg tablet,delayed 40 mg PO DAILY #30 tab 03/18/19 04/27/19 Rx release potassium chloride 20 mEq 20 meq PO DAILY #30 tab 03/18/19 04/27/19 Rx tablet,extended release rivaroxaban 20 mg tablet 20 mg PO DAILY 04/07/19 04/27/19 History sodium chloride-aloe vera 1 sprays INTNAS DAILY PRN 04/07/19 04/27/19 History budesonide 0.5 mg/2 mL suspension 0.5 mg INHALATION Q12H #120 ml 04/15/19 04/27/19 Rx for nebulization ipratropium 0.5 mg-albuterol 3 mg 3 ml INH Q6H PRN #180 ml 04/15/19 04/27/19 Rx (2.5 mg base)/3 mL nebulization soln diclofenac sodium 1 % topical gel 4 gm TOP QID #100 gm 04/17/19 04/27/19 Rx benzonatate 100 mg capsule 100 mg PO BID PRN #20 cap 04/25/19 04/27/19 Rx levofloxacin 500 mg tablet 500 mg PO DAILY #7 tab 04/25/19 04/27/19 Rx prednisone 10 mg tablet See Rx Instructions PO DAILY #41 04/25/19 04/27/19 Rx tab Allergies Allergy/AdvReac Type Severity Reaction Status Date / Time cat dander Allergy Unknown ALLERGIES Verified 04/27/19 07:24 desloratadine Allergy Unknown Unknown Verified 04/27/19 07:24 house dust Allergy Unknown ALLERGIES Verified 04/27/19 07:24 mold Allergy Unknown Unknown Verified 04/27/19 07:24 Sulfa (Sulfonamide Allergy Unknown HIVES Verified 04/27/19 07:24 Antibiotics) amoxicillin AdvReac Mild GI SYMPTOMS Verified 04/27/19 07:24 atropine AdvReac Mild pain & Verified 04/27/19 07:24 diarrhea diphenoxylate AdvReac Mild pain & Verified 04/27/19 07:24 diarrhea moxifloxacin AdvReac Mild pain & Verified 04/27/19 07:24 diarrhea Cipro AdvReac Unknown GI SYMPTOMS Unverified 07/12/17 08:57 ciprofloxacin AdvReac Unknown GI SYMPTOMS Verified 04/27/19 07:24 clavulanic acid AdvReac Unknown GI SYMPTOMS Verified 04/27/19 07:24 erythromycin base AdvReac Unknown GI SYMPTOMS Verified 04/27/19 07:24 metronidazole AdvReac Unknown GI SYMPTOMS Verified 04/27/19 07:24 minocycline AdvReac Unknown GI SYMPTOMS Verified 04/27/19 07:24 Yaqceqq-Gwa-Vfv Reductase AdvReac Unknown Unknown Verified 04/27/19 07:24 Inhibitor Past Med/Surg History Family History Aunt Breast cancer Mother Renal failure Unknown Diabetes Hypertension Son Malignant neoplasm of brain Social History Preferred Language: Vincentian Communication Ability: Effective Patient Placement Coordinator Required: No Beliefs That Will Affect Care: None Current Living Situation: Legal Guardian Current [facility] Situation Comment: [facility] Feels Safe at Home: Yes Smoking Status: Former smoker Second Hand Exposure: No ; Hx Alcohol Use: No Hx Substance Use: No Seatbelt Use: always Review of Systems See HPI for pertinent positives & negatives. and A total of 10 systems reviewed and were otherwise negative Physical Exam Vital Signs Vital Signs - 24 hr 04/27/19 07:13 04/27/19 07:28 04/27/19 07:29 Pulse Rate 108 H Pulse Rate [Right Radial] 105 H Respiratory Rate 36 H 32 H Respiratory Effort / Characteristics Grunting Labored Short of Breath Spontaneous Labored Retracting Short of Breath SOB on Exertion Spontaneous Gasping/Agonal Grunting Labored Respiratory Depth Retractive Retractive Respiratory Pattern Regular Gasping Grunting Tachypnea Blood Pressure 163/113 H Blood Pressure Mean 129 Pulse Oximetry 98 99 Oxygen Delivery Method Non-rebreather BiPAP Oxygen Flow Rate 10 15 Fraction of Inspired Oxygen Sepsis Recent Fever Within 48 Hours No Sepsis Action Taken by Nursing No Action Required 04/27/19 07:44 Pulse Rate 108 H Pulse Rate [Right Radial] Respiratory Rate 28 H Respiratory Effort / Characteristics Respiratory Depth Normal Respiratory Pattern Regular Grunting Blood Pressure Blood Pressure Mean Pulse Oximetry 100 Oxygen Delivery Method Oxygen Flow Rate Fraction of Inspired Oxygen 40 Sepsis Recent Fever Within 48 Hours Sepsis Action Taken by Nursing CONSTITUTIONAL/VITAL SIGNS: Reviewed / noted above. GENERAL: Non-toxic in appearance. INTEGUMENTARY: Warm, dry, and [place]. HEAD: Normocephalic. EYES: without scleral icterus or trauma. ENT/OROPHARYNX: clear and moist. LYMPHADENOPATHY/NECK: Is supple without lymphadenopathy or meningismus. RESPIRATORY: Tachypnea, rhonchi bilaterally. CARDIOVASCULAR: Regular rate and rhythm. GI/ABDOMEN: Soft and nontender. No organomegaly or pulsatile mass. No rebound or guarding. Normal bowel sounds. EXTREMITIES: Warm and well perfused. Chronic appearing pedal edema. BACK: No CVA tenderness. NEUROLOGICAL: Intact without focal deficits. PSYCHIATRIC: normal affect. MUSCULOSKELETAL: Normally developed with good muscle tone. Course Course 1729: The patient was evaluated in room C9, and a complete history and physical examination were performed. 12: I checked on the patient and updated her on her results. She verbalized agreement of the treatment plan. 15: I discussed the patient's case with Dr. Otto Elder. Dr. Menjivar will evaluate the patient for further management. Consultations Consultation #1: I discussed the patient's case with Dr. Otto Elder. Dr. Menjivar will evaluate the patient for further management. Time: 08:15 Administered Medications Discontinued Medications Albuterol (Duoneb) 12 ml INH NOW STA Stop: 04/27/19 07:28 Last Admin: 04/27/19 07:41 Dose: 12 ml Documented by: [id number] Morphine Sulfate (Morphine Sulfate) 4 mg IV NOW STA Stop: 04/27/19 07:45 Last Admin: 04/27/19 08:03 Dose: 4 mg Documented by: [id number] Medical Decision Making Differential Diagnosis Differential diagnosis includes: infections, reactive airway disease, pneumonia, pneumothorax, COPD, CHF, cardiac ischemia, pulmonary embolism, musculoskeletal, gastrointestinal, as well as others were entertained. Medical Records Attestation: I reviewed the patient's medical records. Home Medications Current Medication List: was personally reviewed by me Laboratory Data Attestation: I reviewed the patient's lab results. Result diagrams: 04/27/19 07:25 04/27/19 07:25 Lab Results 04/27/19 04/27/19 04/27/19 Range/Units 07:25 07:25 07:25 WBC 15.05 H (4.8-10.8) K/uL RBC 3.67 L (4.2-5.4) M/uL Hgb 9.1 L (12.0-16.0) g/dL Hct 29.7 L (37-47) % MCV 80.9 (80-100) fL MCH 24.8 L (25-34) pg MCHC 30.6 L (32-36) g/dL RDW Std Deviation 46.9 H (36.4-46.3) fL RDW Coeff of Reina 15.8 H (11.5-14.5) % Plt Count 515 H (130-400) K/uL MPV 8.7 (7.4-10.4) fL Immature Gran % (Auto) 0.4 % Neut % (Auto) 79.1 % Lymph % (Auto) 8.8 % Mccone % (Auto) 11.3 % Eos % (Auto) 0.3 % Baso % (Auto) 0.1 % Immature Gran # (Auto) 0.06 H (0.00-0.02) K/uL Neut # (Auto) 11.90 H (1.4-6.5) K/uL Lymph # (Auto) 1.33 (1.2-3.4) K/uL Mccone # (Auto) 1.70 H (0.11-0.59) K/uL Eos # (Auto) 0.04 (0-0.5) K/uL Baso # (Auto) 0.02 (0-0.2) K/uL Sodium 137 (136-145) mmol/L Potassium 3.7 (3.5-5.1) mmol/L Chloride 104 (98-107) mmol/L Carbon Dioxide 24 (21-32) mmol/L Anion Gap 9.0 (3-11) BUN 16 (7-18) mg/dl Creatinine 0.66 (0.6-1.2) mg/dl Est Cr Clr Drug Dosing 74.0 ml/min Est GFR ( Amer) 96.7 Est GFR (Non-Af Amer) 83.4 BUN/Creatinine Ratio 24.5 H (10-20) Glucose 120 H (70-99) mg/dl Lactate 2.2 H* (0.4-2.0) mmol/L Calcium 9.6 (8.5-10.1) mg/dl Troponin I < 0.015 (0-0.045) ng/ml Influenza Type A Ag (Neg) Influenza Type B Ag (Neg) 04/27/19 Range/Units 07:40 WBC (4.8-10.8) K/uL RBC (4.2-5.4) M/uL Hgb (12.0-16.0) g/dL Hct (37-47) % MCV (80-100) fL MCH (25-34) pg MCHC (32-36) g/dL RDW Std Deviation (36.4-46.3) fL RDW Coeff of Reina (11.5-14.5) % Plt Count (130-400) K/uL MPV (7.4-10.4) fL Immature Gran % (Auto) % Neut % (Auto) % Lymph % (Auto) % Mccone % (Auto) % Eos % (Auto) % Baso % (Auto) % Immature Gran # (Auto) (0.00-0.02) K/uL Neut # (Auto) (1.4-6.5) K/uL Lymph # (Auto) (1.2-3.4) K/uL Mccone # (Auto) (0.11-0.59) K/uL Eos # (Auto) (0-0.5) K/uL Baso # (Auto) (0-0.2) K/uL Sodium (136-145) mmol/L Potassium (3.5-5.1) mmol/L Chloride (98-107) mmol/L Carbon Dioxide (21-32) mmol/L Anion Gap (3-11) BUN (7-18) mg/dl Creatinine (0.6-1.2) mg/dl Est Cr Clr Drug Dosing ml/min Est GFR ( Amer) Est GFR (Non-Af Amer) BUN/Creatinine Ratio (10-20) Glucose (70-99) mg/dl Lactate (0.4-2.0) mmol/L Calcium (8.5-10.1) mg/dl Troponin I (0-0.045) ng/ml Influenza Type A Ag Neg for Influ A (Neg) Influenza Type B Ag Neg for Influ B (Neg) Imaging Data Radiologist's Impression: Radiology results as stated below per my review and the radiologist's interpretation: SINGLE VIEW CHEST CLINICAL HISTORY: Respiratory distress. FINDINGS: 2 AP, portable, upright chest radiographs are compared to study dated 04/25/2019 and correlated with chest CT dated 02/07/2019. The The examination is degraded by portable technique and patient rotation. The heart is enlarged noting atherosclerotic calcification of the thoracic aorta. There is pulmonary vascular congestion. Emphysematous changes suspected. Patchy airspace opacities are seen throughout both lungs, greatest in the perihilar region. There are layering pleural effusions. No pneumothorax is seen. The skeletal structures are osteopenic. The bony thorax is grossly intact. Advanced degenerative change is seen in the shoulders. Surgical clips are noted in the right axilla. IMPRESSION: 1. Cardiomegaly with evidence of congestive failure. 2. Extensive bilateral airspace opacities could represent interstitial edema and/or multifocal pneumonia. Clinical correlation will be required. 3. Small pleural effusions. ACT 112: Negative or not required by law. Electronically signed by: David Marcum M.D. 04/27/2019 7:56 AM ECG Data Attestation: I personally reviewed and interpreted this ECG as follows: Indication: + SOB/dyspnea Rate (beats per minute): 106 Rhythm: + atrial fibrillation ECG ST segments: no ST elevation ECG Findings: + PVCs and + Other (wandering baseline) Blood Pressure Blood Pressure Findings: Elevated blood pressure Blood Pressure Disposition: further management by hospitalist REJI Garrett This is an 78-year-old female who presents to the ED with a chief complaint of shortness of breath. The patient was diagnosed with pneumonia on Sunday. She was started on Levaquin and prednisone. The patient has had some upper respiratory symptoms for a week or 2. She is chronically on home oxygen at 2 L. She was saturating 77% on 2 L here. The patient reports a cough. She also reports some increased fluid in her legs. Her initial vital signs revealed hy pertension. She was slightly tachycardic. Her pulse ox on a nebulizer treatment was above 90%. She was tachypneic. She was able to converse but feels short of breath with conversation. Her lungs reveal bilateral rhonchi. Lower extremities reveal some chronic appearing pedal edema. She appears to have mild to moderate increased work of breathing. The patient was placed on BiPAP in the ED. She was reporting pain in various parts of her body which appears to be mostly chronic. She is having some challenges tolerating the BiPAP. She was given 4 mg of IV morphine to help her tolerate BiPAP as well as for her chronic discomfort. She was given a DuoNeb treatment. She was also given IV Zosyn and IV vancomycin. The patient appears more comfortable on reexam. Her blood pressure improved about 145 systolic. Her white blood cell count was 15. Hemoglobin is 9.1. PRP is unremarkable. Troponin is negative. Lactic acid was mildly elevated at 2.2. Flu swab was negative.The patient was not given 30 cc/kg normal saline as the initial chest x-ray reveals possibility of pneumonia versus congestive heart failure. Because she was hypertensive, fluids were held to further delineate if pulmonary edema is a possibility. She does have some chronic appearing pedal edema on exam. I do think that the symptoms likely represent a worsening pneumonia but pulmonary edema is not completely ruled out. We will hold on diuretics at this time as well. He does not appear to be dehydrated and she has no signs of septic shock. Impression & Plan Bilateral pneumonia, Hypoxia, Respiratory failure Discharge Plan Visit Data Chief Complaint: Respiratory Problems Stated Complaint: breathing diff. ED Provider: Rakan Rao Discharge Problem: Bilateral pneumonia, Hypoxia, Respiratory failure Patient Disposition: Admitted As Inpatient Forms Stand Alone Forms: [facility] Prescriptions Prescriptions: No Action acetaminophen [Mapap (acetaminophen)] 325 mg tablet 650 mg PO Q4H PRN (Reason: pain) RF: 0 (DME) wheelchair device See Rx Instructions .ROUTE .MEDSUPPLY Qty: 1 RF: 0 amlodipine 2.5 mg tablet 2.5 mg PO QAM Qty: 30 RF: 5 levothyroxine 75 mcg tablet 75 mcg PO Q2D Qty: 15 RF: 5 levothyroxine 50 mcg tablet 50 mcg PO Q2D Qty: 15 RF: 5 montelukast [Singulair] 10 mg tablet 10 mg PO DAILY Qty: 30 RF: 5 pantoprazole 40 mg tablet,delayed release (DR/EC) 40 mg PO DAILY Qty: 30 RF: 5 potassium chloride 20 mEq tablet extended release 20 meq PO DAILY Qty: 30 RF: 5 budesonide 0.5 mg/2 mL suspension for nebulization 0.5 mg inhalation Q12H Qty: 120 RF: 5 ipratropium-albuterol 0.5 mg-3 mg(2.5 mg base)/3 mL solution for nebulization 3 ml INH Q6H PRN (Reason: wheezing) Qty: 180 RF: 1 diclofenac sodium 1 % gel 4 gm TOP QID Qty: 100 RF: 3 prednisone 10 mg tablet See Rx Instructions PO DAILY Qty: 41 RF: 0 Beano 150 unit tablet 1 tab PO DAILY PRN (Reason: Indigestion) RF: 0 calcium citrate-vitamin D3 315 mg- 250 unit tablet 0.5 tab PO QAM RF: 0 coenzyme Q10 100 mg capsule 200 mg PO DAILY RF: 0 pimecrolimus [Elidel] 1 % cream 1 appln TOP QPM RF: 0 hydroxyzine HCl 10 mg tablet 10 mg PO Q8H PRN (Reason: Anxiety) RF: 0 melatonin 3 mg capsule 6 mg PO HS RF: 0 polyethylene glycol 3350 [Miralax] 17 gram/dose powder 17 gm PO DAILY PRN (Reason: Constipation) RF: 0 estradiol [Yuvafem] 10 mcg tablet 10 mcg PV QPM RF: 0 [place] Saline Gel [place],Non-Aerosol 1 sprays INTNAS DAILY PRN (Reason: Dry Nasal Passages) RF: 0 Xarelto 20 mg tablet 20 mg PO DAILY RF: 0 cholecalciferol (vitamin D3) 1,000 unit capsule 1,000 units PO QAM RF: 0 Centrum Silver Women 8 mg iron-400 mcg-300 mcg tablet 1 tab PO QAM RF: 0 ascorbic acid (vitamin C) 250 mg tablet 250 mg PO QAM RF: 0 cyanocobalamin (vitamin B-12) 100 mcg tablet 100 mcg PO DAILY RF: 0 fexofenadine 180 mg tablet 180 mg PO DAILY RF: 0 benzonatate [Tessalon Perles] 100 mg capsule 100 mg PO BID PRN (Reason: cough) Qty: 20 RF: 0 levofloxacin [Levaquin] 500 mg tablet 500 mg PO DAILY Qty: 7 RF: 0 albuterol sulfate [Ventolin HFA] 90 mcg/actuation HFA aerosol inhaler 2 puff inhalation QID PRN (Reason: Shortness Of Breath Or Wheezing) RF: 0 prednisone 20 mg Tablet 40 mg PO DAILY Qty: 60 RF: 0 (DME) Oxygen Home Liters Per Minute See Rx Instructions .ROUTE .MEDSUPPLY Qty: 1 RF: 0 Referrals Referrals: Luis Daniel Flores MD [Primary Care Provider] - Discharge Problem: Bilateral pneumonia Qualifiers: Pneumonia type: due to unspecified organism Lung location: unspecified part of lung Qualified Code(s): J18.9 - Pneumonia, unspecified organism Respiratory failure Qualifiers: Chronicity: unspecified Respiratory failure complication: hypoxia Qualified Code(s): J96.91 - Respiratory failure, unspecified with hypoxia The scribe's documentation has been prepared under my direction and personally reviewed by me in its entirety. I confirm that the note above accurately reflects all work, treatment, procedures, and medical decision making performed by me.
[2019-04-27 07:57] LABS: BUN Creatinine Ratio 24.5 (10-20); Blood Urea Nitrogen 16 mg/dl (7-18); Calcium 9.6 mg/dl (8.5-10.1); Carbon Dioxide 24 mmol/L (21-32); Chloride 104 mmol/L (98-107); Est GFR (African American) 96.7; Est GFR (Non-African American) 83.4; Glucose 120 mg/dl (70-99); Potassium 3.7 mmol/L (3.5-5.1); Sodium 137 mmol/L (136-145)
--- NOTE | 2019-04-27 07:57 | XRay Report ---
SINGLE VIEW CHEST CLINICAL HISTORY: Respiratory distress. FINDINGS: 2 AP, portable, upright chest radiographs are compared to study dated 04/25/2019 and correla razia with chest CT dated 02/07/2019. The The examination is degraded by portable technique and patient rotation. The heart is enlarged noting atherosclerotic calcification of the thoracic aorta. There is pulmonary vascular congestion. Emphysematous changes suspected. Patchy airspace opacities are seen t hroughout both lungs, greatest in the perihilar region. There are layering pleural effusions. No pneu mothorax is seen. The skeletal structures are osteopenic. The bony thorax is grossly intact. Advanced degenerative change is seen in the shoulders. Surgical clips are noted in the right axilla. IMPRESSION: 1. Cardiomegaly with evidence of congestive failure. 2. Extensive bilateral airspace opacities could represent interstitial edema and/or multifocal pneumo rachelle. Clinical correlation will be required. 3. Small pleural effusions. ACT 112: Negative or not required by law. Electronically signed by: David Marcum M.D. 04/27/2019 7:56 AM
[2019-04-27 08:02] LABS: Troponin I < 0.015 ng/ml (0-0.045)
--- NOTE | 2019-04-27 09:15 | History & Physical Report ---
Date of Service April 27, 2019 Assessment & Plan (1) SOB (shortness of breath): * Admit to PCU -- likely secondary to CHF/volume overload. O2 76% on 2L at [facility]. Patient being treated with levaquin/prednisone as outpatient. Patient's weight on admission 83.5kg. Baseline ~ 74kg. Patient up approximately 20lbs. Also, patient with history of atrial fibrillation on xarelto, not on any BB. HR 103bpm. * Doxycycline for atypicals, although suspect secondary to volume overload * CXR with cardiomegaly with evidence of congestive failure, extensive biateral airspace opacities likley representing interstitial edema over multifocal pneumonia given exam. Small pleural effusions. * Lactic initially 2.2 -- trending down, 1.4 on repeat * Troponin x 3 * Added BNP to profile -- 4432 * ECHO pending -- most recent ECHO 02/05/19 with normal LV size and systolic function. EF 55-60%. No regional wall motion abnormalities. Moderate LVH. Severe biatrial dilation. * BiPAP * Lasix 40mg IV x 1. Additional 40mg to be given this evening * Daily weights * I&Os * Duonebs Q6prn * Tessalon Pearls * Cardiology consult -- appreciate input (2) Acute and chronic respiratory failure with hypoxia: (3) Acute diastolic CHF (congestive heart failure): (4) Respiratory failure: * As above. (5) Atrial fibrillation: * Continue Xarelto * Not on BB, however has had repeat courses of steroids --> HR 103, EKG with afib with RVR, R axis deviation, low voltage QRS * Could consider BB for better rate control when not in acute failure. Possible increased rate and decompensation leading to acute CHF (6) Hypoxia: * 97% on BiPAP, 10/5, FiO2 40% (7) Hypertension: * Chronic. Stable * BP 136/76 * Continue home amlodipine 2.5mg -- would avoid once out of failure given increased LE edema (8) Hypothyroid: * Chronic. Stable - TSH 1.49 * Patient alternates 75mcg and 50mcg dosing -- continue home schedule (9) Allergic rhinitis due to allergen: * Continue home motelukast 10mg, fexofenadine 180mg (10) DVT prophylaxis: * Continue eliquis Dispo: patient likely to remain hospitalized for at least 2-3 days History of Present Illness Chief Complaint: Shortness of Breath Primary Care Provider: Luis Daniel Flores MD 78 year old white female with PMH significant for atrial fibrillation (on Xarelto), depression/anxiety, asthma, hypothyroidism, GERD, allergic rhinitis presented to the emergency room for progressive shortness of breath and possible pneumonia failing outpatient treatment. Patient is a resident at [facility] since December of 2018. She states on Sunday a chest xray was performed secondary to her feeling under the weather and with a cough. She states she was given an antibiotic, which was levaquin, in addition to steroids and did not have any improvement. Patient was brought in with an oxygen saturation between 76-89% on 2L. The patient states she has noticed that she has been utilizing more than her usual 2-3 pillows to sleep at night, but states she believes this is due to her reflux. She states progressive shortness of breath with activity, worsening abdominal fullness and increased lower extremity edema. She notes not having much of an appetite secondary to abdominal fullness. The patient denies being on diuretics as an outpatient and denies any history of congestive heart failure in the past. She states she has a non-productive cough and albuterol inhaler has been ineffective. She states she has had some chills, but denies having a fever. Of note, the patient was just recently placed on oxygen in February for acute respiratory failure with hypoxia and possible pneumonia which failed outpatient treatment and multiple rounds of steroids. It was determined not to be a bacterial pneumonia at that time. She underwent a bronchoscopy and biopsy at that time which suggested ILD. She was discharged on 40mg daily prednisone. Pulmonary follow appears patient may have been volume overloaded at that time. She was brought in by ambulance for an oxygen saturation between 76-89% despite 2L via [place]. In the emergency room, patient placed on BiPAP with improvement of respiratory status, RR previously 32. Was given albuterol neb, Zosyn, Vancomycin. Labs reveal WBC 15K in the setting of recent steroid use, H/h 9.1/29.7. Plt 515. Na 137. K 3.7. Bun/Cr 24.5. Lactate 2.2. Negative flu swab. CXR with congestive failure, extensive bilateral airspace opacities which could represent interstitial edema and/or multifocal pneumonia. Small pleural effusions noted. Allergies Allergy/AdvReac Type Severity Reaction Status Date / Time Sulfa (Sulfonamide Allergy Intermediate HIVES Verified 04/27/19 11:24 Antibiotics) cat dander Allergy Unknown ALLERGIES Verified 04/27/19 07:24 desloratadine Allergy Unknown Unknown Verified 04/27/19 07:24 house dust Allergy Unknown ALLERGIES Verified 04/27/19 07:24 mold Allergy Unknown Unknown Verified 04/27/19 07:24 amoxicillin AdvReac Mild GI SYMPTOMS Verified 04/27/19 07:24 atropine AdvReac Mild pain & Verified 04/27/19 07:24 diarrhea diphenoxylate AdvReac Mild pain & Verified 04/27/19 07:24 diarrhea moxifloxacin AdvReac Mild pain & Verified 04/27/19 07:24 diarrhea Cipro AdvReac Unknown GI SYMPTOMS Unverified 07/12/17 08:57 ciprofloxacin AdvReac Unknown GI SYMPTOMS Verified 04/27/19 07:24 clavulanic acid AdvReac Unknown GI SYMPTOMS Verified 04/27/19 07:24 erythromycin base AdvReac Unknown GI SYMPTOMS Verified 04/27/19 07:24 metronidazole AdvReac Unknown GI SYMPTOMS Verified 04/27/19 07:24 minocycline AdvReac Unknown GI SYMPTOMS Verified 04/27/19 07:24 Noiudve-Owk-Elh Reductase AdvReac Unknown Unknown Verified 04/27/19 07:24 Inhibitor Home Medications Home Medications Medication Instructions Recorded Confirmed Type cholecalciferol (vitamin D3) 25 1,000 units PO QAM cap 07/23/18 04/27/19 History mcg (1,000 unit) capsule multivit with 1 tab PO QAM 09/24/18 04/27/19 History dlabhekt-codm-YY-lutein 8 mg iron-400 mcg-300 mcg tablet ascorbic acid (vitamin C) 250 mg 250 mg PO QAM tab 10/30/18 04/27/19 History tablet cyanocobalamin (vitamin B-12) 100 100 mcg PO DAILY tab 10/30/18 04/27/19 History mcg tablet fexofenadine 180 mg tablet 180 mg PO DAILY tab 10/30/18 04/27/19 History albuterol sulfate [Ventolin HFA] 2 puff INHALATION QID PRN 11/13/18 04/27/19 History acetaminophen 325 mg tablet 650 mg PO Q4H PRN tab 12/18/18 04/27/19 History ubyjt-g-atelizfnqrvmm 150 unit 1 tab PO DAILY PRN tab 01/22/19 04/27/19 History tablet calcium citrate 315 mg-vitamin D3 0.5 tab PO QAM tab 01/22/19 04/27/19 History 250 unit tablet coenzyme Q10 100 mg capsule 200 mg PO DAILY cap 01/22/19 04/27/19 History estradiol 10 mcg vaginal tablet 10 mcg PV QPM 01/22/19 04/27/19 History hydroxyzine HCl 10 mg tablet 10 mg PO Q8H PRN tab 01/22/19 04/27/19 History melatonin 3 mg capsule 6 mg PO HS cap 01/22/19 04/27/19 History pimecrolimus 1 % topical cream 1 appln TOP QPM gm 01/22/19 04/27/19 History polyethylene glycol 3350 17 17 gm PO DAILY PRN 01/22/19 04/27/19 History gram/dose oral powder Oxygen Home #1 ea 02/12/19 04/25/19 Rx prednisone 40 mg PO DAILY #60 tab 02/12/19 04/27/19 Rx wheelchair #1 02/19/19 04/25/19 History amlodipine 2.5 mg tablet 2.5 mg PO QAM #30 tab 03/18/19 04/27/19 Rx levothyroxine 50 mcg tablet 50 mcg PO Q2D #15 tab 03/18/19 04/27/19 Rx levothyroxine 75 mcg tablet 75 mcg PO Q2D #15 tab 03/18/19 04/27/19 Rx montelukast 10 mg tablet 10 mg PO DAILY #30 tab 03/18/19 04/27/19 Rx pantoprazole 40 mg tablet,delayed 40 mg PO DAILY #30 tab 03/18/19 04/27/19 Rx release potassium chloride 20 mEq 20 meq PO DAILY #30 tab 03/18/19 04/27/19 Rx tablet,extended release rivaroxaban 20 mg tablet 20 mg PO DAILY 04/07/19 04/27/19 History sodium chloride-aloe vera 1 sprays INTNAS DAILY PRN 04/07/19 04/27/19 History budesonide 0.5 mg/2 mL suspension 0.5 mg INHALATION Q12H #120 ml 04/15/19 04/27/19 Rx for nebulization ipratropium 0.5 mg-albuterol 3 mg 3 ml INH Q6H PRN #180 ml 04/15/19 04/27/19 Rx (2.5 mg base)/3 mL nebulization soln diclofenac sodium 1 % topical gel 4 gm TOP QID #100 gm 04/17/19 04/27/19 Rx benzonatate 100 mg capsule 100 mg PO BID PRN #20 cap 04/25/19 04/27/19 Rx levofloxacin 500 mg tablet 500 mg PO DAILY #7 tab 04/25/19 04/27/19 Rx prednisone 10 mg tablet See Rx Instructions PO DAILY #41 04/25/19 04/27/19 Rx tab Past Med/Surg History Medical History Allergic rhinitis due to cats Allergic rhinitis due to dust Anxiety Asthma exacerbation Bilateral impacted cerumen (Resolved) Breast cancer (~1998) "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 [id number] Status post completion of radiation therapy 03/30/1998" On 10/07/14 16:50 Teresa Karimi wrote "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 [id number] Status post completion of radiation therapy 03/30/1998" Chronic constipation Chronic ITP (idiopathic thrombocytopenia) Depression with anxiety Dyslipidemia Extrinsic asthma Extrinsic asthma Gastroparesis Generalized anxiety disorder History of esophageal reflux Hypertension Hypothyroidism Irritable bowel syndrome Mixed hearing loss, bilateral Peripheral edema Permanent atrial fibrillation Positive ARTEMIO (antinuclear antibody) Renal cyst (~08/28/13) Rosacea Sensorineural hearing loss (SNHL) of both ears Somnolence, daytime Telangiectasia Thrombocytopenia Tinea pedis Venous insufficiency (chronic) (peripheral) Vitamin D deficiency Surgical History History of appendectomy History of cholecystectomy History of dilation and curettage History of mastectomy History of tonsillectomy and adenoidectomy Family History Aunt Breast cancer Mother Renal failure Unknown Diabetes Hypertension Son Malignant neoplasm of brain Social History Preferred Language: Malian Communication Ability: Effective Brooch Maker Novelty Required: No Beliefs That Will Affect Care: None Current Living Situation: Personal Care Facility Current Living Situation Comment: [facility] Other Information That Helps Us Care for You: No Feels Safe at Home: Yes Safety Concerns: Feels Safe At This Time Smoking Status: Former smoker Do You Dip or Chew Tobacco: No ; Second Hand Exposure: No ; Tobacco Cessation Education Requested by Patient: No Hx Alcohol Use: No Hx Substance Use: No Seatbelt Use: always Review of Systems Review of Systems: All systems reviewed & are unremarkable except as noted in HPI & below Constitutional: + chills and + anorexia; no fever Eyes: no diplopia and no worsening vision Ear, Nose, Mouth, Throat: no sore throat and no dysphagia Respiratory: + cough, + chest congestion, + dyspnea and + wheezing Cardiovascular: + chest pain (earlier this morning) and + edema; no palpitations Gastrointestinal: + bloating; no nausea and no vomiting Genitourinary: no dysuria and no urinary frequency Musculoskeletal: + swelling; no deformity Integumentary: no rash and no lesions Neurologic: no falls and no syncope Psychiatric: + depression (reported history) and + anxiety (reported history) Endocrine: + fatigue; no polydipsia Hematologic / Lymphatic: + easy bleeding; no night sweats Allergy / Immunological: + wheezing and + cough Physical Exam Constitutional: WD/WN, vitals as above in respiratory distress, belly breathing Eyes: + anicteric sclerae and PERRL ENMT: external ear and nose normal, oropharynx normal Neck: trachea midline, no thyromegaly Respiratory: Auscultation: + crackles (R>L, diffusely), + rales (posterior lung waller) and + wheezes (expiratory) on BiPAP 10/5, 40% FiO2 with O2 sat 93% Cardiovascular: Rate/Rhythm: + irregularly irregular Heart Sounds: no murmur Vessels: + JVD Extremities: + edema (3+ b/l LE) Gastrointestinal (Abdomen): Inspection/Auscultation: + abdomen distended and normal bowel sounds Percussion/Palpation: abdomen nontender, no guarding and abdomen not rigid Musculoskeletal: no cyanosis or clubbing, extremities motor strength 5/5 Skin: no rashes, warm and dry Neurologic: PERRL, EOMI, accommodation nl, no face palsy, no dysarthria Psychiatric: Orientation: alert and oriented x 3 Lymphatic: no cervical or axillary lymphadenopathy Results & Data Vital Signs (Past 12 Hours) Vital Signs Pulse Pulse Resp BP Pulse Ox 04/27/19 08:31 111 H 24 100 04/27/19 08:30 106 H 29 H 169/84 H 100 04/27/19 08:02 110 H 27 H 148/95 H 100 04/27/19 08:00 113 H 21 100 04/27/19 07:44 108 H 28 H 100 04/27/19 07:30 109 H 26 H 96 04/27/19 07:29 105 H 32 H 99 04/27/19 07:17 107 H 24 97 04/27/19 07:13 108 H 36 H 163/113 H 98 04/27/19 07:12 105 H 22 163/119 H 98 Laboratory Results 04/27/19 04/27/19 04/27/19 Range/Units 11:40 10:38 07:40 WBC (4.8-10.8) K/uL RBC (4.2-5.4) M/uL Hgb (12.0-16.0) g/dL Hct (37-47) % MCV (80-100) fL MCH (25-34) pg MCHC (32-36) g/dL RDW Std Deviation (36.4-46.3) fL RDW Coeff of Reina (11.5-14.5) % Plt Count (130-400) K/uL MPV (7.4-10.4) fL Immature Gran % (Auto) % Neut % (Auto) % Lymph % (Auto) % Burke % (Auto) % Eos % (Auto) % Baso % (Auto) % Immature Gran # (Auto) (0.00-0.02) K/uL Neut # (Auto) (1.4-6.5) K/uL Lymph # (Auto) (1.2-3.4) K/uL Burke # (Auto) (0.11-0.59) K/uL Eos # (Auto) (0-0.5) K/uL Baso # (Auto) (0-0.2) K/uL Sodium (136-145) mmol/L Potassium (3.5-5.1) mmol/L Chloride (98-107) mmol/L Carbon Dioxide (21-32) mmol/L Anion Gap (3-11) BUN (7-18) mg/dl Creatinine (0.6-1.2) mg/dl Est Cr Clr Drug Dosing ml/min Est GFR ( Amer) Est GFR (Non-Af Amer) BUN/Creatinine Ratio (10-20) Glucose (70-99) mg/dl Lactate 1.4 (0.4-2.0) mmol/L Calcium (8.5-10.1) mg/dl Total Bilirubin (0.2-1) mg/dl Direct Bilirubin (0-0.2) mg/dl AST (15-37) U/L ALT (12-78) U/L Alkaline Phosphatase (45-117) U/L Troponin I < 0.015 (0-0.045) ng/ml NT-Pro-B Natriuret Pep (0-1800) pg/ml Total Protein (6.4-8.2) gm/dl Albumin (3.4-5.0) gm/dl TSH (0.300-4.500) uIu/ml Influenza Type A Ag Neg for Influ A (Neg) Influenza Type B Ag Neg for Influ B (Neg) 04/27/19 04/27/19 04/27/19 Range/Units 07:25 07:25 07:25 WBC (4.8-10.8) K/uL RBC (4.2-5.4) M/uL Hgb (12.0-16.0) g/dL Hct (37-47) % MCV (80-100) fL MCH (25-34) pg MCHC (32-36) g/dL RDW Std Deviation (36.4-46.3) fL RDW Coeff of Reina (11.5-14.5) % Plt Count (130-400) K/uL MPV (7.4-10.4) fL Immature Gran % (Auto) % Neut % (Auto) % Lymph % (Auto) % Burke % (Auto) % Eos % (Auto) % Baso % (Auto) % Immature Gran # (Auto) (0.00-0.02) K/uL Neut # (Auto) (1.4-6.5) K/uL Lymph # (Auto) (1.2-3.4) K/uL Burke # (Auto) (0.11-0.59) K/uL Eos # (Auto) (0-0.5) K/uL Baso # (Auto) (0-0.2) K/uL Sodium (136-145) mmol/L Potassium (3.5-5.1) mmol/L Chloride (98-107) mmol/L Carbon Dioxide (21-32) mmol/L Anion Gap (3-11) BUN (7-18) mg/dl Creatinine (0.6-1.2) mg/dl Est Cr Clr Drug Dosing ml/min Est GFR ( Amer) Est GFR (Non-Af Amer) BUN/Creatinine Ratio (10-20) Glucose (70-99) mg/dl Lactate 2.2 H* (0.4-2.0) mmol/L Calcium (8.5-10.1) mg/dl Total Bilirubin 0.6 (0.2-1) mg/dl Direct Bilirubin < 0.1 (0-0.2) mg/dl AST 18 (15-37) U/L ALT 22 (12-78) U/L Alkaline Phosphatase 106 (45-117) U/L Troponin I (0-0.045) ng/ml NT-Pro-B Natriuret Pep 4432 H (0-1800) pg/ml Total Protein 7.2 (6.4-8.2) gm/dl Albumin 3.3 L (3.4-5.0) gm/dl TSH 1.490 (0.300-4.500) uIu/ml Influenza Type A Ag (Neg) Influenza Type B Ag (Neg) 04/27/19 04/27/19 Range/Units 07:25 07:25 WBC 15.05 H (4.8-10.8) K/uL RBC 3.67 L (4.2-5.4) M/uL Hgb 9.1 L (12.0-16.0) g/dL Hct 29.7 L (37-47) % MCV 80.9 (80-100) fL MCH 24.8 L (25-34) pg MCHC 30.6 L (32-36) g/dL RDW Std Deviation 46.9 H (36.4-46.3) fL RDW Coeff of Reina 15.8 H (11.5-14.5) % Plt Count 515 H (130-400) K/uL MPV 8.7 (7.4-10.4) fL Immature Gran % (Auto) 0.4 % Neut % (Auto) 79.1 % Lymph % (Auto) 8.8 % Burke % (Auto) 11.3 % Eos % (Auto) 0.3 % Baso % (Auto) 0.1 % Immature Gran # (Auto) 0.06 H (0.00-0.02) K/uL Neut # (Auto) 11.90 H (1.4-6.5) K/uL Lymph # (Auto) 1.33 (1.2-3.4) K/uL Burke # (Auto) 1.70 H (0.11-0.59) K/uL Eos # (Auto) 0.04 (0-0.5) K/uL Baso # (Auto) 0.02 (0-0.2) K/uL Sodium 137 (136-145) mmol/L Potassium 3.7 (3.5-5.1) mmol/L Chloride 104 (98-107) mmol/L Carbon Dioxide 24 (21-32) mmol/L Anion Gap 9.0 (3-11) BUN 16 (7-18) mg/dl Creatinine 0.66 (0.6-1.2) mg/dl Est Cr Clr Drug Dosing 74.0 ml/min Est GFR ( Amer) 96.7 Est GFR (Non-Af Amer) 83.4 BUN/Creatinine Ratio 24.5 H (10-20) Glucose 120 H (70-99) mg/dl Lactate (0.4-2.0) mmol/L Calcium 9.6 (8.5-10.1) mg/dl Total Bilirubin (0.2-1) mg/dl Direct Bilirubin (0-0.2) mg/dl AST (15-37) U/L ALT (12-78) U/L Alkaline Phosphatase (45-117) U/L Troponin I < 0.015 (0-0.045) ng/ml NT-Pro-B Natriuret Pep (0-1800) pg/ml Total Protein (6.4-8.2) gm/dl Albumin (3.4-5.0) gm/dl TSH (0.300-4.500) uIu/ml Influenza Type A Ag (Neg) Influenza Type B Ag (Neg) Supervising Physician Co-Signing Physician Notes Attending Attestation & Admission note: Pt seen/examined, chart reviewed, admission care plan d/w GOLDEN Alejandro. I agree w/ the sanchez components of her admission documentation. 78yo female with chronic hypoxic respiratory failure since late 2019 - likely underlying interstitial lung disease - on chronic prednisone & followed by Dr Anderson - who presented with worsening pulmonary symptoms including cough, dyspnea, and orthopnea. Has had significant weight gain over last several weeks. Presented today with acute/chronic resp failure. Had significant distress upon ER presentation necessitating use of BIPAP. Chest x-ray with diffuse infiltrates b/l. PMH, PSH, allergies, meds, sochx, famhx, ros - reviewed vitals - tachypneic, tachy, afebrile gen - tachypneic, mildly dyspneic, BIPAP in place mouth - MM dry neck - JVD to the jaw heart - irregular, tachy lungs - diffuse rales b/l anterior/posterior abd - distended (ascites/abd wall edema suspected), NT, BS+ ext - 2-3+ edema to the thighs labs reviewed cxr - diffuse infiltrates b/l A/P: 1. acute/chronic hypoxic respiratory failure - acute component likely volume overload/diastolic CHF (see below). Cannot rule out infectious process or ILD exacerbation but less likely. 2. acute diastolic CHF - copious response to 40mg IV lasix (1.5 liters minimum) with improved pulmonary symptoms. Will give additional dose of lasix tonight. Suspect will need BID IV lasix ongoing. Suspect chronic prednisone use is leading to fluid retention. Cannot rule out uncontrolled a.fib contributing. 3. a.fib with RVR - adjust meds for such; cont anticoagulation. 4. hypothyroidism - TSH wnl; cont synthroid. 5. ? pneumonia - finish abx course in the event some of cxr findings are from infectious process. 6. 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 will need PT/OT - defer until pulmonary status is improved Gennaro Menjivar MD PG Care Time/CCT Total # of Minutes Spent Total Time Spent with Patient: Total time spent is greater than 50% in coordination of care (as documented) at patient's floor/unit and/or counseling patient: Coding Level of Care Code 24803 Initial Inpt Care Lvl 3 Diagnoses SOB (shortness of breath) R06.02 Acute and chronic respiratory failure with hypoxia J96.21 Acute diastolic CHF (congestive heart failure) I50.31 Respiratory failure J96.91 Chronicity: unspecified Respiratory failure complication: hypoxia Atrial fibrillation I48.91 Hypoxia R09.02 Hypertension I10 Hypothyroid E03.9 Allergic rhinitis due to allergen J30.9 Allergic rhinitis seasonality: unspecified Allergic rhinitis trigger: unspecified DVT prophylaxis Z29.9 (1) Respiratory failure Chronicity: unspecified Respiratory failure complication: hypoxia Qualified Code(s): J96.91 - Respiratory failure, unspecified with hypoxia (2) Allergic rhinitis due to allergen Allergic rhinitis seasonality: unspecified Allergic rhinitis trigger: unspecified Qualified Code(s): J30.9 - Allergic rhinitis, unspecified
[2019-04-27] MEDS ORDERED: NON-FORMULARY MEDICATION (Oxygen Home 2 LITER) SCH (11:19)
[2019-04-27] MEDS ORDERED: ALBUTEROL HFA 8 GM INHALER INH PRN (11:19)
[2019-04-27] MEDS ORDERED: ONDANSETRON INJ 2 MG/ML 2 ML VIAL IV PRN (11:19)
[2019-04-27] MEDS ORDERED: NITROGLYCERIN SL 0.4 MG/TAB TAB SL PRN (11:19)
[2019-04-27] MEDS ORDERED: POLYETHYLENE (MIRALAX) 17 GM PACK PO PRN (11:19)
[2019-04-27] MEDS ORDERED: FUROSEMIDE 40 MG/4 ML VIAL IV STA (11:19)
[2019-04-27] MEDS ORDERED: ALPHA D GALACTOSIDASE PO PRN (11:19)
[2019-04-27] MEDS ORDERED: MAGNESIUM HYDROXIDE SUSP 30 ML UDC PO PRN (11:19)
[2019-04-27] MEDS ORDERED: FUROSEMIDE 40 MG in SYRINGE 0 ML IV ONE ×2 (11:45→23:00)
[2019-04-27] MEDS: DICLOFENAC SOD 1% GEL 100 GM TUBE EXT SCH ×3 (11:58→21:31)
[2019-04-27 11:59] LABS: Alanine Aminotransferase 22 U/L (12-78); Albumin Level 3.3 gm/dl (3.4-5.0); Alkaline Phosphatase 106 U/L (45-117); Aspartate Aminotransferase 18 U/L (15-37); Bilirubin Direct < 0.1 mg/dl (0-0.2); Bilirubin,Total 0.6 mg/dl (0.2-1); Total Protein 7.2 gm/dl (6.4-8.2)
[2019-04-27] MEDS: LEVOTHYROXINE SODIUM 75 MCG TABLET PO SCH (12:01)
[2019-04-27] MEDS: hydrOXYzine HCl 10 MG TAB PO PRN ×3 (12:01→20:09)
[2019-04-27] MEDS: RIVAROXABAN 20 MG TAB PO SCH (12:01)
[2019-04-27] MEDS: methylPREDNISolone 20 MG in SYRINGE 0 ML IV SCH ×2 (12:02→21:31)
[2019-04-27] MEDS: BUDESONIDE 0.5 MG/2 ML VIAL (PULMICORT) INH SCH ×2 (12:18→19:12)
--- NOTE | 2019-04-27 14:21 | Electrocardiogram Report ---
Test Reason : Blood Pressure : / mmHG Vent. Rate : 108 BPM Atrial Rate : 091 BPM P-R Int : 000 ms QRS Dur : 078 ms QT Int : 476 ms P-R-T Axes : 000 099 227 degrees QTc Int : 637 ms Poor data quality, interpretation may be adversely affected Atrial fibrillation with rapid ventricular response with premature ventricular or aberrantly conducte d complexes Rightward axis Low voltage QRS Septal infarct , age undetermined Prolonged QT Abnormal ECG When compared with ECG of 05-FEB-2019 06:22, Significant changes have occurred Confirmed by Wilber Do ([id number]) on 04/27/2019 2:21:02 PM Referred By: Confirmed By:Wilber Do
[2019-04-27] MEDS ORDERED: PIMECROLIMUS TOP SCH (21:00)
[2019-04-27] MEDS ORDERED: NON-FORMULARY MEDICATION (Melatonin 6 MG) PO SCH (21:00)
[2019-04-27] MEDS ORDERED: ESTRADIOL 10 MCG PV SCH (21:00)
[2019-04-28] MEDS: ACETAMINOPHEN 325 MG TAB PO PRN ×3 (02:03→22:13)
[2019-04-28] MEDS: BENZONATATE 100 MG CAPSULE PO PRN (03:07)
[2019-04-28] MEDS: ALBUT/IPRATROP 3MG/0.5MG NEB 3 ML VIAL INH PRN ×2 (03:33→06:57)
[2019-04-28 06:16] LABS: Hematocrit (blood only) 27.7 % (37-47); Hemoglobin 8.3 g/dL (12.0-16.0); Immature Granulocytes # (auto) 0.04 K/uL (0.00-0.02); Immature Granulocytes % (auto) 0.4 %; Lymphocytes # (auto) 0.27 K/uL (1.2-3.4); Lymphocytes % (auto) 2.9 %; Mean Corpuscular Hemoglobin 24.5 pg (25-34); Mean Corpuscular Volume 81.7 fL (80-100); Mean Platelet Volume 9.1 fL (7.4-10.4); Monocytes # (auto) 0.47 K/uL (0.11-0.59); Neutrophils # (auto) 8.59 K/uL (1.4-6.5); Neutrophils % (auto) 91.7 %; Platelet Count 412 K/uL (130-400); RDW Coefficient of Variation 16.1 % (11.5-14.5); RDW Standard Deviation 47.7 fL (36.4-46.3); Red Blood Count 3.39 M/uL (4.2-5.4); White Blood Count 9.37 K/uL (4.8-10.8)
[2019-04-28] MEDS: LEVOTHYROXINE SODIUM 50 MCG TABLET PO SCH (06:19)
[2019-04-28 06:52] LABS: Albumin Level 2.7 gm/dl (3.4-5.0); BUN Creatinine Ratio 31.8 (10-20); Calcium 8.6 mg/dl (8.5-10.1); Est GFR (African American) 99.2; Est GFR (Non-African American) 85.6; Potassium 3.3 mmol/L (3.5-5.1)
[2019-04-28 06:54] LABS: Albumin Globulin Ratio 0.8 (0.9-2); Bilirubin,Total 0.5 mg/dl (0.2-1); Globulin 3.4 gm/dl (2.5-4.0); Total Protein 6.1 gm/dl (6.4-8.2)
[2019-04-28] MEDS: BUDESONIDE 0.5 MG/2 ML VIAL (PULMICORT) INH SCH ×2 (06:57→18:57)
[2019-04-28] MEDS: MONTELUKAST SODIUM 10 MG TABLET PO SCH (07:50)
[2019-04-28] MEDS: CHOLECALCIFEROL 1,000 UNITS 25 MCG TAB PO SCH (07:50)
[2019-04-28] MEDS: hydrOXYzine HCl 10 MG TAB PO PRN ×2 (07:50→21:57)
[2019-04-28] MEDS: POTASSIUM CHLORIDE 20 MEQ TABCR PO SCH (07:51)
[2019-04-28] MEDS: AMLODIPINE BESYLATE 5 MG TAB PO SCH (07:51)
[2019-04-28] MEDS: CYANOCOBALAMIN (VITAMIN B-12) 100 MCG TABLET PO SCH (07:51)
[2019-04-28] MEDS: CALCIUM 600MG + VIT D 400 IU TAB PO SCH (07:51)
[2019-04-28] MEDS: PANTOprazole 40 MG TAB PO SCH (07:51)
[2019-04-28] MEDS: RIVAROXABAN 20 MG TAB PO SCH ×2 (07:51→16:52)
[2019-04-28] MEDS: DICLOFENAC SOD 1% GEL 100 GM TUBE EXT SCH ×4 (07:52→21:30)
[2019-04-28] MEDS: FEXOFENADINE HCL 180 MG TAB PO SCH (07:52)
[2019-04-28] MEDS: methylPREDNISolone 20 MG in SYRINGE 0 ML IV SCH ×2 (07:52→21:30)
[2019-04-28] MEDS ORDERED: POTASSIUM CHLORIDE 20 MEQ TABCR PO STA (08:12)
[2019-04-28] MEDS ORDERED: DOXYCYCLINE HYCLATE 100 MG in DEXTROSE 5% 100 ML IV SCH (09:00)
[2019-04-28] MEDS ORDERED: NON-FORMULARY MEDICATION (Coenzyme Q10 200 MG) PO SCH (09:00)
--- NOTE | 2019-04-28 09:25 | XCELERA ---
[id number] [id number]
--- NOTE | 2019-04-28 09:47 | XRay Report ---
XR chest 1V portable CLINICAL HISTORY: chf dyspnea COMPARISON STUDY: 04/27/2019 FINDINGS: Slight improvement in the findings of congestive failure versus pulmonary edema. Improved v isibility right hemidiaphragm. Small left effusion. Moderate stable cardiomegaly. IMPRESSION: 1. Congestive failure versus pulmonary edema slightly improved from the prior exam. 2. Persistent opacification left lung base possibly on the basis of a left effusion. ACT 112: Negative or not required by law. The above report was generated using voice recognition software. It may contain grammatical, syntax or spelling errors. Electronically signed by: Hussain Cody M.D. 04/28/2019 9:46 AM
--- NOTE | 2019-04-28 10:05 | Cardiology Consultation ---
Date of Consultation April 28, 2019 Assessment & Plan (1) Hypervolemia: Mrs. Malone is an 78 year old female with a history of Hypertension, Dyslipidemia, Permanent Atrial Fibrillation (rates currently 90's to low 100's), Mild Concentric LVH, Panic/Somatization Disorder, Hypothyroidism, Idiopathic Thrombocytopenic Purpura, Positive ARTEMIO, Asthma, Multiple Allergies (dust, cat dander, pollen), Chronic Venous Insufficiency, Anemia, history of Capillaritis, Elevated ESR, and Recurrent Pneumonic Infiltrates who was admitted on 04/27/2019 with Superimposed Hypervolemia which is likely related to steroid induced fluid retention -- but there is an unexplained / undefined inflammatory or autoimmune condition which needs to be further explored that is contributing to her recurrent pneumonic infiltrates / symptoms. She has had PFT's in the past and pulmonology feels that she has mixed obstructive/restrictive lung disease. Past bronchoscopy with biopsy showed non-specific findings -- but a repeat biopsy may be helpful at this point. Would recommend Pulmonology Consultation. From a cardiac standpoint -- patient has Atrial Fibrillation with reasonable ventricular response rates and Echocardiogram shows Normal Biventricular Systolic Function, mild concentric LVH, mild MR, top normal RVSP -- so this does not suggest systolic heart failure per se. Recommend the following: -- Continue IV Lasix 40 mg daily until euvolemic / return to "dry weight". -- Continue Amlodipine 2.5 mg daily. 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 -- Supplement Potassium as needed. -- Monitor daily I&O's and body weights. -- Monitor renal function closely. -- 2 Gram low sodium diet ADDENDUM (Dr. Cantu): Patient seen and examined. Agree with plan as outlined above by Mr. Jason EVANS. Complex patient with 3 prior separate episodes of inflammatory pneumonic process over the past 2 years, none of which were suggestive of congestive heart failure (she had atypical infiltrates, elevated inflammatory markers, etc.). Work-up of these episodes by the pulmonary division has been unrevealing (including lung biopsy). Her current episode of respiratory distress, however, is consistent with superimposed hypervolemia/diastolic congestive heart failure. As such, should respond well to volume unloading/diuresis (she still appears hypervolemic, further volume unloading will be needed). No symptoms or ECG findings suggestive of ischemia. Suspect her volume retention is in part due to prednisone, which may be helpful for her underlying inflammatory process, but which in the future will need to be accompanied by strict low sodium diet and weight-based sliding scale diuretic use to avoid recurrent hypervolemia/congestive heart failure. We will follow along with you. Thank you for this consultation. (2) Atrial fibrillation: Permanent Atrial Fibrillation: -- Continue Xarelto 20 mg daily. -- Ventricular response rates in 90's and low 100's are acceptable considering her acute illness. -- She is not on any negative chronotropic agents. (3) Peripheral edema: Improving. -- Continue medications as outlined above. (4) Hypertension: -- Continue Amlodipine 2.5 mg daily. (5) Respiratory failure: -- Recommend consulting Pulmonology for further evaluation, ? repeat biopsy. Supervising Physician Co-Signing Physician Notes Xavi Cantu MD History of Present Illness Reason for Consultation: -- Superimposed Hypervolemia. -- Permanent Atrial Fibrillation. Requesting Physician: Gennaro Mcdonald MD Attending Physician: Xavi Cantu MD History of Present Illness Mrs. Malone is an 78 year old female with a history of Hypertension, Dyslipidemia, Permanent Atrial Fibrillation (rates currently 90's to low 100's), Mild Concentric LVH, Panic/Somatization Disorder, Hypothyroidism, Idiopathic Thrombocytopenic Purpura, Positive ARTEMIO, Asthma, Multiple Allergies (dust, cat dander, pollen), Chronic Venous Insufficiency, Anemia, history of Capillaritis, Elevated ESR, and Recurrent Pneumonic Infiltrates who was admitted on 04/27/2019 with SOB, JEREZ, [place] Non-Intentional Weight Gain, and Orthopnea over the past 3 to 4 weeks. Patient was hypoxic on admission as well. Patient has seen various providers over the past several weeks for pulmonary complaints and a lung infiltrate -- she has been on multiple oral antibiotics as an outpatient and she has been on a Prednisone taper. She failed to respond to these measures and became markedly more symptomatic over the past 48 hours -- which prompted admission. Patient has developed bilateral scattered infiltrates on her CXR and she had an elevated Pro-BNP on admission so she was diagnosed with pneumonia with a component of CHF. Her Echocardiogram 04/28/2019 shows normal biventricular systolic function, LVEF 55% to 60% with normal wall motion, severe biatrial dilatation, top normal estimated RV systolic pressure, and only mild concentric LVH. Prednisone may have contributed to some fluid weight gain. Patient denies any recent changes in her diet or her dietary salt intake. Patient is currently being seen in 230-2 and she is on BiPAP after dropping her O2 saturation into upper 80's after eating breakfast. Patient is currently receiving IV Vibramycin, Supplemental Oxygen, IV Solumedrol, and IV Lasix -- and she is feeling significantly better today than at the time of admission. She offers no complaints at the present time -- her breathing is better than it was on admission but she still has scattered wheezes and crackles. Patient denies any chest pain, pressure, or discomfort. Patient denies any neck, jaw, back, or arm pain. Her peripheral edema is much better as well. She hasn't noticed any tachy-palpitations or unusually elevated heart rates despite being chronically in atrial fibrillation. Patient remains in Atrial Fibrillation with V rates in the 90's to low 100's at a state of rest on telemetry monitoring. Her Troponin I levels are undetectable. ProBNP was elevated at 4432 pg/ml on admission. Please note that she had a sedimentation rate of > 90 mm/hr. Allergies Allergy/AdvReac Type Severity Reaction Status Date / Time Sulfa (Sulfonamide Allergy Intermediate HIVES Verified 04/27/19 11:24 Antibiotics) cat dander Allergy Unknown ALLERGIES Verified 04/27/19 07:24 desloratadine Allergy Unknown Unknown Verified 04/27/19 07:24 house dust Allergy Unknown ALLERGIES Verified 04/27/19 07:24 mold Allergy Unknown Unknown Verified 04/27/19 07:24 amoxicillin AdvReac Mild GI SYMPTOMS Verified 04/27/19 07:24 atropine AdvReac Mild pain & Verified 04/27/19 07:24 diarrhea diphenoxylate AdvReac Mild pain & Verified 04/27/19 07:24 diarrhea moxifloxacin AdvReac Mild pain & Verified 04/27/19 07:24 diarrhea Cipro AdvReac Unknown GI SYMPTOMS Unverified 07/12/17 08:57 ciprofloxacin AdvReac Unknown GI SYMPTOMS Verified 04/27/19 07:24 clavulanic acid AdvReac Unknown GI SYMPTOMS Verified 04/27/19 07:24 erythromycin base AdvReac Unknown GI SYMPTOMS Verified 04/27/19 07:24 metronidazole AdvReac Unknown GI SYMPTOMS Verified 04/27/19 07:24 minocycline AdvReac Unknown GI SYMPTOMS Verified 04/27/19 07:24 Fznpcss-Ong-Eka Reductase AdvReac Unknown Unknown Verified 04/27/19 07:24 Inhibitor Home Medications Home Medications Medication Instructions Recorded Confirmed Type cholecalciferol (vitamin D3) 25 1,000 units PO QAM cap 07/23/18 04/27/19 History mcg (1,000 unit) capsule multivit with 1 tab PO QAM 09/24/18 04/27/19 History vgdbimvh-kcui-JJ-lutein 8 mg iron-400 mcg-300 mcg tablet ascorbic acid (vitamin C) 250 mg 250 mg PO QAM tab 10/30/18 04/27/19 History tablet cyanocobalamin (vitamin B-12) 100 100 mcg PO DAILY tab 10/30/18 04/27/19 History mcg tablet fexofenadine 180 mg tablet 180 mg PO DAILY tab 10/30/18 04/27/19 History albuterol sulfate [Ventolin HFA] 2 puff INHALATION QID PRN 11/13/18 04/27/19 History acetaminophen 325 mg tablet 650 mg PO Q4H PRN tab 12/18/18 04/27/19 History bohvn-j-csysfbkpihzab 150 unit 1 tab PO DAILY PRN tab 01/22/19 04/27/19 History tablet calcium citrate 315 mg-vitamin D3 0.5 tab PO QAM tab 01/22/19 04/27/19 History 250 unit tablet coenzyme Q10 100 mg capsule 200 mg PO DAILY cap 01/22/19 04/27/19 History estradiol 10 mcg vaginal tablet 10 mcg PV QPM 01/22/19 04/27/19 History hydroxyzine HCl 10 mg tablet 10 mg PO Q8H PRN tab 01/22/19 04/27/19 History melatonin 3 mg capsule 6 mg PO HS cap 01/22/19 04/27/19 History pimecrolimus 1 % topical cream 1 appln TOP QPM gm 01/22/19 04/27/19 History polyethylene glycol 3350 17 17 gm PO DAILY PRN 01/22/19 04/27/19 History gram/dose oral powder Oxygen Home #1 ea 02/12/19 04/25/19 Rx prednisone 40 mg PO DAILY #60 tab 02/12/19 04/27/19 Rx wheelchair #1 02/19/19 04/25/19 History amlodipine 2.5 mg tablet 2.5 mg PO QAM #30 tab 03/18/19 04/27/19 Rx levothyroxine 50 mcg tablet 50 mcg PO Q2D #15 tab 03/18/19 04/27/19 Rx levothyroxine 75 mcg tablet 75 mcg PO Q2D #15 tab 03/18/19 04/27/19 Rx montelukast 10 mg tablet 10 mg PO DAILY #30 tab 03/18/19 04/27/19 Rx pantoprazole 40 mg tablet,delayed 40 mg PO DAILY #30 tab 03/18/19 04/27/19 Rx release potassium chloride 20 mEq 20 meq PO DAILY #30 tab 03/18/19 04/27/19 Rx tablet,extended release rivaroxaban 20 mg tablet 20 mg PO DAILY 04/07/19 04/27/19 History sodium chloride-aloe vera 1 sprays INTNAS DAILY PRN 04/07/19 04/27/19 History budesonide 0.5 mg/2 mL suspension 0.5 mg INHALATION Q12H #120 ml 04/15/19 04/27/19 Rx for nebulization ipratropium 0.5 mg-albuterol 3 mg 3 ml INH Q6H PRN #180 ml 04/15/19 04/27/19 Rx (2.5 mg base)/3 mL nebulization soln diclofenac sodium 1 % topical gel 4 gm TOP QID #100 gm 04/17/19 04/27/19 Rx benzonatate 100 mg capsule 100 mg PO BID PRN #20 cap 04/25/19 04/27/19 Rx levofloxacin 500 mg tablet 500 mg PO DAILY #7 tab 04/25/19 04/27/19 Rx prednisone 10 mg tablet See Rx Instructions PO DAILY #41 04/25/19 04/27/19 Rx tab Patient History Medical History Allergic rhinitis due to cats Allergic rhinitis due to dust Anxiety Asthma exacerbation Bilateral impacted cerumen (Resolved) Breast cancer (~1998) "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 [id number] Status post completion of radiation therapy 03/30/1998" On 10/07/14 16:50 Teresa Karimi wrote "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 [id number] Status post completion of radiation therapy 03/30/1998" Chronic constipation Chronic ITP (idiopathic thrombocytopenia) Depression with anxiety Dyslipidemia Extrinsic asthma Extrinsic asthma Gastroparesis Generalized anxiety disorder History of esophageal reflux Hypertension Hypothyroidism Irritable bowel syndrome Mixed hearing loss, bilateral Peripheral edema Permanent atrial fibrillation Positive ARTEMIO (antinuclear antibody) Renal cyst (~08/28/13) Rosacea Sensorineural hearing loss (SNHL) of both ears Somnolence, daytime Telangiectasia Thrombocytopenia Tinea pedis Venous insufficiency (chronic) (peripheral) Vitamin D deficiency Surgical History History of appendectomy History of cholecystectomy History of dilation and curettage History of mastectomy History of tonsillectomy and adenoidectomy Family History Aunt Breast cancer Mother Renal failure Unknown Diabetes Hypertension Son Malignant neoplasm of brain Social History Preferred Language: Azeri Communication Ability: Effective Public Affairs Manager Required: No Beliefs That Will Affect Care: None Current Living Situation: Personal Care Facility Current Living Situation Comment: [facility] Other Information That Helps Us Care for You: No Feels Safe at Home: Yes Safety Concerns: Feels Safe At This Time Smoking Status: Former smoker Do You Dip or Chew Tobacco: No ; Second Hand Exposure: No ; Tobacco Cessation Education Requested by Patient: No Hx Alcohol Use: No Hx Substance Use: No Seatbelt Use: always Physical Exam Physical Exam: GENERAL: Patient currently with BiPAP in place, she is in no acute distress. HEENT: Head is atraumatic, normocephalic. EOM's intact. Facies symmetric. No perioral cyanosis. NECK: JVP is elevated. Carotid upstrokes are + 2 bilaterally. No bruits are noted. CHEST/LUNGS: Breath sounds are present bilaterally with scattered crackles and expiratory wheezes. CVS: S1 and S2 are irregularly irregular at 98 bpm. No obvious murmurs, gallops, or rubs. PMI is nondisplaced. No abdominal aortic or renal bruits. ABDOMINAL EXAM: Bowel sounds are present. No masses, organomegaly, or tenderness. EXTREMITIES: No clubbing or cyanosis. Trace pretibial edema bilaterally. Intact posterior tibial and radial pulses bilaterally. NEUROLOGIC EXAM: Patient is awake, alert, and oriented. Pleasant and cooperative. Answers questions appropriately. Speech is clear. Normal movement in all 4 extremities. Results & Data ([facility]) Vital Signs (Past 12 Hours) Vital Signs Temp Pulse Pulse Pulse Resp BP Pulse Ox 04/28/19 08:27 90 04/28/19 06:59 102 H 22 87 L 04/28/19 06:40 36.6 C 92 H 20 145/77 H 89 L 04/28/19 03:50 100 H 26 H 93 04/28/19 03:37 92 H 22 88 L 04/28/19 03:01 36.6 C 108 H 20 148/84 H 94 04/28/19 00:28 78 04/27/19 23:36 36.8 C 105 H 20 144/88 H 88 L 04/27/19 22:45 94 H 04/27/19 22:39 90 18 90 Laboratory Results Laboratory Results - last 24 hr 04/27/19 04/27/19 04/27/19 07:25 10:38 11:40 WBC RBC Hgb Hct MCV MCH MCHC RDW Std Deviation RDW Coeff of Reina Plt Count MPV Immature Gran % (Auto) Neut % (Auto) Lymph % (Auto) [place] % (Auto) Eos % (Auto) Baso % (Auto) Immature Gran # (Auto) Neut # (Auto) Lymph # (Auto) [place] # (Auto) Eos # (Auto) Baso # (Auto) Sodium Potassium Chloride Carbon Dioxide Anion Gap BUN Creatinine Est Cr Clr Drug Dosing Est GFR ( Amer) Est GFR (Non-Af Amer) BUN/Creatinine Ratio Glucose Lactate 1.4 Calcium Total Bilirubin 0.6 Direct Bilirubin < 0.1 AST 18 ALT 22 Alkaline Phosphatase 106 Troponin I < 0.015 Total Protein 7.2 Albumin 3.3 L Globulin Albumin/Globulin Ratio Procalcitonin TSH 1.490 Nasal Screen MRSA (PCR) 04/27/19 04/28/19 04/28/19 19:20 05:25 05:25 WBC 9.37 RBC 3.39 L Hgb 8.3 L Hct 27.7 L MCV 81.7 MCH 24.5 L MCHC 30.0 L RDW Std Deviation 47.7 H RDW Coeff of Reina 16.1 H Plt Count 412 H MPV 9.1 Immature Gran % (Auto) 0.4 Neut % (Auto) 91.7 Lymph % (Auto) 2.9 [place] % (Auto) 5.0 Eos % (Auto) 0.0 Baso % (Auto) 0.0 Immature Gran # (Auto) 0.04 H Neut # (Auto) 8.59 H Lymph # (Auto) 0.27 L [place] # (Auto) 0.47 Eos # (Auto) 0.00 Baso # (Auto) 0.00 Sodium 139 Potassium 3.3 L Chloride 104 Carbon Dioxide 29 Anion Gap 6.0 BUN 20 H Creatinine 0.61 Est Cr Clr Drug Dosing 80.0 Est GFR ( Amer) 99.2 Est GFR (Non-Af Amer) 85.6 BUN/Creatinine Ratio 31.8 H Glucose 164 H Lactate Calcium 8.6 Total Bilirubin 0.5 Direct Bilirubin AST 17 ALT 21 Alkaline Phosphatase 100 Troponin I < 0.015 Total Protein 6.1 L Albumin 2.7 L Globulin 3.4 Albumin/Globulin Ratio 0.8 L Procalcitonin TSH Nasal Screen MRSA (PCR) 04/28/19 04/28/19 08:20 08:27 WBC RBC Hgb Hct MCV MCH MCHC RDW Std Deviation RDW Coeff of Reina Plt Count MPV Immature Gran % (Auto) Neut % (Auto) Lymph % (Auto) [place] % (Auto) Eos % (Auto) Baso % (Auto) Immature Gran # (Auto) Neut # (Auto) Lymph # (Auto) [place] # (Auto) Eos # (Auto) Baso # (Auto) Sodium Potassium Chloride Carbon Dioxide Anion Gap BUN Creatinine Est Cr Clr Drug Dosing Est GFR ( Amer) Est GFR (Non-Af Amer) BUN/Creatinine Ratio Glucose Lactate Calcium Total Bilirubin Direct Bilirubin AST ALT Alkaline Phosphatase Troponin I Total Protein Albumin Globulin Albumin/Globulin Ratio Procalcitonin 0.12 TSH Nasal Screen MRSA (PCR) Negative Medications Administered Active Medications Generic Name Dose Route Start Last Admin Trade Name Freq PRN Reason Stop Dose Admin Acetaminophen 650 mg 04/27/19 11:19 04/28/19 02:03 Tylenol PO 05/27/19 11:18 650 mg Q4H PRN Administration pain Albuterol 3 ml 04/27/19 11:19 04/28/19 06:57 Duoneb INH 05/27/19 11:18 3 ml Q6H PRN Administration wheezing Albuterol 2 puffs 04/27/19 11:19 Ventolin Hfa INH 05/27/19 11:18 QID PRN Shortness Of Breath Or Wheezing Amlodipine Besylate 2.5 mg 04/28/19 09:00 04/28/19 07:51 Norvasc PO 05/28/19 08:59 2.5 mg QAM BAYLEE Administration Benzonatate 100 mg 04/27/19 11:19 04/28/19 03:07 Tessalon Perle PO 05/27/19 11:18 100 mg BID PRN Administration cough Budesonide 0.5 mg 04/27/19 11:19 04/28/19 06:57 Pulmicort Respules INH 05/27/19 11:18 0.5 mg Q12R BAYLEE Administration Cyanocobalamin 100 mcg 04/28/19 09:00 04/28/19 07:51 Vitamin B-12 PO 05/28/19 08:59 100 mcg DAILY BAYLEE Administration Diclofenac Sodium 4 gm 04/27/19 13:00 04/28/19 07:52 Voltaren 1% Top EXT 05/27/19 12:59 4 gm QID BAYLEE Administration Fexofenadine HCl 180 mg 04/28/19 09:00 04/28/19 07:52 Estee PO 05/28/19 08:59 180 mg DAILY BAYLEE Administration Hydroxyzine HCl 10 mg 04/27/19 11:19 04/28/19 07:50 Vistaril PO 05/27/19 11:18 10 mg Q8H PRN Administration Anxiety Doxycycline Hyclate 100 mg/ 110 mls @ 50 mls/hr 04/28/19 09:00 04/28/19 10:21 Dextrose IV 05/05/19 08:59 Infused QAM BAYLEE Infusion Methylprednisolone 20 mg/ 0.32 mls @ 1.5 mls/min 04/27/19 12:00 04/28/19 07:52 Syringe IV 05/27/19 11:59 1.5 mls/min Q12 BAYLEE Administration Furosemide 40 mg/ Syringe 4 mls @ 4 mls/min 04/29/19 09:00 IV 05/29/19 08:59 QAM BAYLEE Levothyroxine Sodium 75 mcg 04/27/19 11:19 04/27/19 12:01 Synthroid PO 05/27/19 11:18 75 mcg Q2D@0630 BAYLEE Administration Levothyroxine Sodium 50 mcg 04/28/19 06:30 04/28/19 06:19 Synthroid PO 05/28/19 06:29 50 mcg Q2D@0630 BAYLEE Administration Magnesium Hydroxide 30 ml 04/27/19 11:19 Milk Of Magnesia PO 05/27/19 11:18 Q12H PRN Constipation Miscellaneous 1 ea 04/27/19 16:00 04/28/19 10:21 Order Awaiting Action N/A 05/27/19 15:59 Not Given QS BAYLEE Miscellaneous 1 ea 04/27/19 16:00 04/28/19 10:20 Order Awaiting Action N/A 05/27/19 15:59 Not Given QS BAYLEE Montelukast Sodium 10 mg 04/28/19 09:00 04/28/19 07:50 Singulair PO 05/28/19 08:59 10 mg DAILY BAYLEE Administration Multivitamins/Minerals 0.5 tab 04/28/19 09:00 04/28/19 07:51 Caltrate Plus PO 05/28/19 08:59 0.5 tab QAM BAYLEE Administration Nitroglycerin 0.4 mg 04/27/19 11:19 Nitrostat SL 05/27/19 11:18 UD PRN Chest Pain Non-Formulary Medication 2 liter 04/27/19 11:19 Oxygen Home NA 05/27/19 11:18 .MEDSUPPLY [facility] Ondansetron HCl 4 mg 04/27/19 11:19 Zofran IV 05/27/19 11:18 Q6H PRN Nausea Pantoprazole Sodium 40 mg 04/28/19 09:00 04/28/19 07:51 Protonix PO 05/28/19 08:59 40 mg DAILY BAYLEE Administration Polyethylene Glycol 17 gm 04/27/19 11:19 Miralax Powder Packet PO 05/27/19 11:18 DAILY PRN Constipation Potassium Chloride 20 meq 04/28/19 09:00 04/28/19 07:51 Klor-Con M20 PO 05/28/19 08:59 20 meq DAILY BAYLEE Administration Rivaroxaban 20 mg 04/27/19 11:19 04/28/19 07:51 Xarelto PO 05/27/19 11:18 20 mg DAILY BAYLEE Administration Vitamin D 1,000 units 04/28/19 09:00 04/28/19 07:50 Vitamin D3 PO 05/28/19 08:59 1,000 units QAM BAYLEE Administration PG Care Time/CCT Total # of Minutes Spent Total Time Spent with Patient: Total time spent is greater than 50% in coordination of care (as documented) at patient's floor/unit and/or counseling patient: Coding Level of Care Code 89534 Initial Inpt Care Lvl 3 Diagnoses Hypervolemia E87.70 Atrial fibrillation I48.91 Peripheral edema R60.9 Hypertension I10 Respiratory failure J96.91 Chronicity: unspecified Respiratory failure complication: hypoxia (1) Respiratory failure Chronicity: unspecified Respiratory failure complication: hypoxia Qualified Code(s): J96.91 - Respiratory failure, unspecified with hypoxia
[2019-04-28] MEDS ORDERED: FUROSEMIDE 40 MG in SYRINGE 0 ML IV ONE (10:27)
[2019-04-28] MEDS ORDERED: Nursing to Pharmacy Communication ONE (16:19)
--- NOTE | 2019-04-28 18:01 | Hospitalist Progress Note ---
Date of Service April 28, 2019 Assessment & Plan (1) Acute and chronic respiratory failure with hypoxia: Most of current failure appears secondary to interstitial edema rather than infection. Procalcitonin negative. Although chills 2 days prior to admission concerning for infection there is no evidence of bacterial element to this at present. She was also on levaquin already as outpatient without clinical improvement. Will d/c doxycyline at this time. CXR markedly improved with diuresis - see below for CHF. (2) Acute diastolic CHF (congestive heart failure): Patient's weight on admission 83.5kg. Baseline ~ 74kg. Patient up approximately 20lbs. BNP trending up since 04/25 2999 -> 4432. Suspect caused by prednisone vs. Rapid rate a. fib. Prednisone only started on however patient reports ongoing leg swelling for the week prior to this. In addition she had little improvement with prednisone and antibiotic treatment therefore I suspect her hypervolemia which is the major cause of her current respiratory failure is most likely related to a.fib with RVR however this doesn't seem the case with her prior episodes. Trend BNP and BMP. I&Os, daily weights Appreciate cardiology input Continue lasix IV 40 mg daily (on no diuretic as outpatient) (3) Extrinsic asthma: With acute exacerbation, although most of respiratory failure secondary to hypervolemic state her improvement with nebulizers suggests a degree of asthma exacerbation. Therefore will continue steroids but taper over 4 days and touch base with pulmonology in the morning in case any additional inpatient workup warranted at this time. (4) Normocytic anemia: No melena or bright right blood noted. FOB pending. Appears to be trending down over month. MCV low normal therefore suspect iron def. If SOB not clinically improving as expected we may wish to transfuse Hgb < 9 but for now will continue to monitor her improvement with diuretics. Iron studies ordered for AM labs. Likely will need GI referral as outpatient. (5) Atrial fibrillation: Continue Xarelto Will defer to cardiology regarding rate controlling strategy, but may wish to use diltiazem in light of asthma exacerbation causing these episodes. (6) Hypertension: Chronic. Stable Continue home amlodipine 2.5mg (7) Hypothyroid: Chronic. Stable - TSH 1.49 Patient alternates 75mcg and 50mcg dosing -- continue home schedule (8) Allergic rhinitis due to allergen: Continue home motelukast 10mg, fexofenadine 180mg (9) DVT prophylaxis: Continue Xarelto Admission and Anticipated Discharge Date Admission Date: April 27, 2019 Subjective Patient feels much improved since admission. Less short of breath, no chest pain. She feels the majority of her symptoms are related to fluid build up and associated with increased leg edema b/l equal over the last week correlates well with her shortness of breath. She does report 2 episodes of chills on Sunday and Sunday however no other signs of a bacterial pneumonia elicited from history and actually she feels her shortness of breath had been slowly progressing along with her leg edema for 1-2 weeks prior to having any chills. No longer requiring BiPAP to maintain oxygen levels. Review of Systems Review of Systems: All systems reviewed & are unremarkable except as noted in HPI & below Physical Exam Constitutional: WD/WN, vitals as above no acute distress Eyes: + anicteric sclerae; normal pupil size ENMT: external ear and nose normal, oropharynx normal Neck: trachea midline, no thyromegaly Respiratory: + uses accessory muscles and able to speak in complete sentences; no respiratory distress, no labored breathing and no retractions Auscultation: + crackles (Bibasal coarse); no diminished lung sounds, no rales and no wheezes Cardiovascular: Rate/Rhythm: + tachycardic and + irregularly irregular He art Sounds: no murmur Vessels: + JVD Extremities: + edema (2+ b/l LE) Gastrointestinal (Abdomen): Inspection/Auscultation: + abdomen distended and normal bowel sounds Percussion/Palpation: abdomen soft; abdomen nontender, no guarding and abdomen not rigid Musculoskeletal: no cyanosis or clubbing, extremities motor strength 5/5 Skin: no rashes, warm and dry Neurologic: moves all extremities and awake; no focal motor deficits and not confused Speech / Cognition: normal speech Motor/Sensory: no tremor and no pronator drift Psychiatric: A+Ox3, euthymic affect Genitourinary: no CVA tenderness Lymphatic: no cervical or axillary lymphadenopathy Results & Data ([facility]) Vital Signs (Past 12 Hours) Vital Signs Temp Pulse Pulse Pulse Resp BP Pulse Ox 04/28/19 15:34 36.6 C 96 H 23 117/70 91 04/28/19 11:26 83 16 90 04/28/19 11:06 36.4 C L 104 H 19 127/66 93 04/28/19 08:27 90 04/28/19 06:59 102 H 22 87 L 04/28/19 06:40 36.6 C 92 H 20 145/77 H 89 L PG Care Time/CCT Total # of Minutes Spent Total Time Spent with Patient: Total time spent is greater than 50% in coordination of care (as documented) at patient's floor/unit and/or counseling patient: Coding Level of Care Code 79724 Subseq Hosp Care Lvl 3 Diagnoses Acute and chronic respiratory failure with hypoxia J96.21 Acute diastolic CHF (congestive heart failure) I50.31 Extrinsic asthma J45.41 Asthma severity: moderate Asthma persistence: persistent Asthma complication type: with acute exacerbation Normocytic anemia D64.9 Atrial fibrillation I48.11 Atrial fibrillation type: longstanding persistent Hypertension I10 Hypertension type: essential hypertension Hypothyroid E03.9 Hypothyroidism type: unspecified Allergic rhinitis due to allergen J30.9 Allergic rhinitis seasonality: unspecified Allergic rhinitis trigger: unspecified DVT prophylaxis Z29.9 (1) Atrial fibrillation Atrial fibrillation type: longstanding persistent Qualified Code(s): I48.11 - Longstanding persistent atrial fibrillation (2) Hypothyroid Hypothyroidism type: unspecified Qualified Code(s): E03.9 - Hypothyroidism, unspecified (3) Allergic rhinitis due to allergen Allergic rhinitis seasonality: unspecified Allergic rhinitis trigger: unspecified Qualified Code(s): J30.9 - Allergic rhinitis, unspecified (4) Hypertension Hypertension type: essential hypertension Qualified Code(s): I10 - Essential (primary) hypertension (5) Extrinsic asthma Asthma severity: moderate Asthma persistence: persistent Asthma complication type: with acute exacerbation Qualified Code(s): J45.41 - Moderate persistent asthma with (acute) exacerbation
[2019-04-28] MEDS ORDERED: RIVAROXABAN 20 MG TAB PO SCH (21:00)
[2019-04-29] MEDS: BENZONATATE 100 MG CAPSULE PO PRN ×3 (02:26→20:14)
[2019-04-29] MEDS ORDERED: FUROSEMIDE 40 MG in SYRINGE 0 ML IV ONE (04:01)
--- NOTE | 2019-04-29 04:05 | Communication Note ---
Date of Service: April 29, 2019 Pt tachycardic, increasing O2 req with sats mid-high 80s on 5LNC. Lungs wet/crackles. Pt refusing BiPaP overnight. Lasix 40mg IV given, KCL 20meq x3 do ses Q4H + MgOx qAM with Mag levels drawn for hypokalemia previous day (repleted previously). Importance of Bipap while she is diuresed for fluid overload reinforced.
[2019-04-29] MEDS: POTASSIUM CHLORIDE 20 MEQ TABCR PO SCH ×5 (04:20→20:06)
[2019-04-29] MEDS: LEVOTHYROXINE SODIUM 75 MCG TABLET PO SCH (05:42)
--- NOTE | 2019-04-29 05:57 | Electrocardiogram Report ---
Test Reason : Blood Pressure : / mmHG Vent. Rate : 095 BPM Atrial Rate : 000 BPM P-R Int : 000 ms QRS Dur : 090 ms QT Int : 350 ms P-R-T Axes : 000 021 066 degrees QTc Int : 439 ms Atrial fibrillation Septal infarct (cited on or before 10-JUL-2017) Abnormal ECG When compared with ECG of 27-APR-2019 07:17, much less artifact on current ECG Confirmed by Dov Rodriguez [id number]) on 04/29/2019 5:57:03 AM Referred By: REFERRED SELF Confirmed By:Dov Rodriguez
[2019-04-29 06:06] LABS: Basophils # (auto) 0.01 K/uL (0-0.2); Basophils % (auto) 0.1 %; Hematocrit (blood only) 31.3 % (37-47); Hemoglobin 9.3 g/dL (12.0-16.0); Immature Granulocytes # (auto) 0.06 K/uL (0.00-0.02); Immature Granulocytes % (auto) 0.4 %; Lymphocytes % (auto) 2.7 %; Mean Corpuscular Hemoglobin 24.5 pg (25-34); Mean Corpuscular Hgb Conc 29.7 g/dL (32-36); Mean Corpuscular Volume 82.6 fL (80-100); Mean Platelet Volume 9.1 fL (7.4-10.4); Monocytes # (auto) 0.89 K/uL (0.11-0.59); Monocytes % (auto) 6.1 %; Neutrophils # (auto) 13.19 K/uL (1.4-6.5); Neutrophils % (auto) 90.7 %; Platelet Count 467 K/uL (130-400); RDW Standard Deviation 48.1 fL (36.4-46.3); Red Blood Count 3.79 M/uL (4.2-5.4); White Blood Count 14.55 K/uL (4.8-10.8)
[2019-04-29 06:43] LABS: BUN Creatinine Ratio 39.8 (10-20); Calcium 8.8 mg/dl (8.5-10.1); Creatinine Clr Calc Pharmacy 62.1 ml/min; Est GFR (African American) 81.9; Est GFR (Non-African American) 70.7; Potassium 3.9 mmol/L (3.5-5.1)
[2019-04-29 06:51] LABS: Ferritin 53.7 ng/ml (8-388)
[2019-04-29] MEDS: BUDESONIDE 0.5 MG/2 ML VIAL (PULMICORT) INH SCH ×2 (06:57→19:41)
[2019-04-29] MEDS: ALBUT/IPRATROP 3MG/0.5MG NEB 3 ML VIAL INH PRN (06:57)
[2019-04-29] MEDS: FEXOFENADINE HCL 180 MG TAB PO SCH (08:18)
[2019-04-29] MEDS: CYANOCOBALAMIN (VITAMIN B-12) 100 MCG TABLET PO SCH (08:18)
[2019-04-29] MEDS: PANTOprazole 40 MG TAB PO SCH (08:19)
[2019-04-29] MEDS: CALCIUM 600MG + VIT D 400 IU TAB PO SCH (08:19)
[2019-04-29] MEDS: MONTELUKAST SODIUM 10 MG TABLET PO SCH (08:19)
[2019-04-29] MEDS: AMLODIPINE BESYLATE 5 MG TAB PO SCH (08:20)
[2019-04-29] MEDS: CHOLECALCIFEROL 1,000 UNITS 25 MCG TAB PO SCH (08:20)
[2019-04-29] MEDS: MAGNESIUM OXIDE 400 MG TAB PO SCH (08:20)
[2019-04-29] MEDS: hydrOXYzine HCl 10 MG TAB PO PRN ×2 (08:20→21:04)
[2019-04-29] MEDS: DICLOFENAC SOD 1% GEL 100 GM TUBE EXT SCH ×4 (08:21→20:08)
--- NOTE | 2019-04-29 08:45 | Cardiology Progress Note ---
Date of Service April 29, 2019 Assessment & Plan (1) Hypervolemia: Mrs. Malone is an 78 year old female with a history of Hypertension, Dyslipidemia, Permanent Atrial Fibrillation (rates currently 90's to low 100's), Mild Concentric LVH, Panic/Somatization Disorder, Hypothyroidism, Idiopathic Thrombocytopenic Purpura, Positive ARTEMIO, Asthma, Multiple Allergies (dust, cat dander, pollen), Chronic Venous Insufficiency, Anemia, history of Capillaritis, Elevated ESR, and Recurrent Pneumonic Infiltrates / Processes -- who was admitted on 04/27/2019 with Superimposed Hypervolemia which is likely related to steroid induced fluid retention -- but there appears to be an unexplained / undefined inflammatory or autoimmune condition that responds to prednisone Would recommend Pulmonology Consultation. Recommend the following: -- Increase IV Lasix 40 mg to b.i.d. dosing until euvolemic / return to "dry weight". -- Continue Amlodipine 2.5 mg daily. -- Continue Xarelto as patient's [id number] is 4. -- Supplement Potassium as needed. -- Monitor daily I&O's and body weights. -- Monitor renal function closely. -- 2 Gram low sodium diet. -- Patient will likely need ongoing corticosteroid therapy upon discharge from the hospital -- would recommend starting oral diuretic therapy to be taken according to her body weights / sliding scale dosing. ADDENDUM (Dr. Cantu): Patient seen and examined. Agree with plan as outlined above by Mr. Jason EVANS. Case discussed with Dr. Mcdonald. With BUN increasing from 12 to 31, transient hypokalemia yesterday, and very vigorous output, reasonable to decrease rate of diuresis as per Dr. Mcdonald's suggestion. Once her "dry" weight is achieved, utilize sliding scale diuretic regimen as an outpatient. We will continue to follow. (2) Atrial fibrillation: Permanent Atrial Fibrillation: -- Continue Xarelto 20 mg daily. -- Ventricular response rates are acceptable considering her acute illness. -- She is not on any negative chronotropic agents. (3) Peripheral edema: Improving. -- Continue medications as outlined above. (4) Hypertension: -- Continue Amlodipine 2.5 mg daily. (5) Respiratory failure: -- Recommend consulting Pulmonology for further evaluation. Admission and Anticipated Discharge Date Admission Date: April 27, 2019 Subjective Mrs. Day was feeling better, less SOB throughout the morning and afternoon yesterday -- but then decompensated and desaturated late yesterday afternoon. Today she is feeling less SOB but has been unable remove her supplemental oxygen as she desaturates. Cumulative I&O's show a negative fluid balance of > 6 liters as of this morning. She sleeps with her head elevated. Patient denies any chest pain, heaviness, tightness, or heaviness. No syncope or near syncope. She denies any tachy-palpitations. Physical Exam Physical Exam: GENERAL: Patient currently with supplemental O2 in place, she is in no acute distress. HEENT: Head is atraumatic, normocephalic. EOM's intact. Facies symmetric. No perioral cyanosis. NECK: JVP is elevated to fpc to the angle of the jaw. Carotid upstrokes are + 2 bilaterally. No bruits are noted. CHEST/LUNGS: Breath sounds are present bilaterally with scattered crackles and expiratory wheezes. CVS: S1 and S2 are irregularly irregular at 101 bpm. No obvious murmurs, gallops, or rubs. PMI is nondisplaced. No abdominal aortic or renal bruits. ABDOMINAL EXAM: Bowel sounds are present. No masses, organomegaly, or tenderness. EXTREMITIES: No clubbing or cyanosis. Trace pretibial edema bilaterally. Intact posterior tibial and radial pulses bilaterally. NEUROLOGIC EXAM: Patient is awake, alert, and oriented. Pleasant and cooperative. Answers questions appropriately. Speech is clear. Renal function is stable. Potassium is 3.9 mmol/L. Telemetry: -- Atrial fibrillation with rates in the low 100's this morning. Results & Data ([facility]) Vital Signs (Past 12 Hours) Vital Signs Temp Pulse Pulse Pulse Resp BP Pulse Ox 04/29/19 07:11 36.4 C L 89 19 154/92 H 90 04/29/19 07:01 91 H 22 93 04/29/19 06:58 91 H 22 93 04/29/19 04:42 100 H 26 H 92 04/29/19 04:00 36 C L 111 H 20 157/92 H 88 L 04/28/19 23:07 36.8 C 96 H 20 133/76 90 Laboratory Results Laboratory Results - last 24 hr 04/28/19 04/28/19 04/29/19 08:20 08:27 05:32 WBC RBC Hgb Hct MCV MCH MCHC RDW Std Deviation RDW Coeff of Reina Plt Count MPV Immature Gran % (Auto) Neut % (Auto) Lymph % (Auto) [place] % (Auto) Eos % (Auto) Baso % (Auto) Immature Gran # (Auto) Neut # (Auto) Lymph # (Auto) [place] # (Auto) Eos # (Auto) Baso # (Auto) Sodium 138 Potassium 3.9 D Chloride 101 Carbon Dioxide 32 Anion Gap 5.0 BUN 31 H D Creatinine 0.79 Est Cr Clr Drug Dosing 62.1 Est GFR ( Amer) 81.9 Est GFR (Non-Af Amer) 70.7 BUN/Creatinine Ratio 39.8 H Glucose 163 H Calcium 8.8 Magnesium 2.0 Iron 11 L Transferrin 280 Transferrin % Sat 3 L Ferritin 53.7 NT-Pro-B Natriuret Pep 6847 H Procalcitonin 0.12 Nasal Screen MRSA (PCR) Negative Stool Occult Bld Scrn Blood Type Antibody Screen 04/29/19 04/29/19 04/29/19 05:32 05:32 07:30 WBC 14.55 H RBC 3.79 L Hgb 9.3 L Hct 31.3 L MCV 82.6 MCH 24.5 L MCHC 29.7 L RDW Std Deviation 48.1 H RDW Coeff of Reina 16.0 H Plt Count 467 H MPV 9.1 Immature Gran % (Auto) 0.4 Neut % (Auto) 90.7 Lymph % (Auto) 2.7 [place] % (Auto) 6.1 Eos % (Auto) 0.0 Baso % (Auto) 0.1 Immature Gran # (Auto) 0.06 H Neut # (Auto) 13.19 H Lymph # (Auto) 0.40 L [place] # (Auto) 0.89 H Eos # (Auto) 0.00 Baso # (Auto) 0.01 Sodium Potassium Chloride Carbon Dioxide Anion Gap BUN Creatinine Est Cr Clr Drug Dosing Est GFR ( Amer) Est GFR (Non-Af Amer) BUN/Creatinine Ratio Glucose Calcium Magnesium Iron Transferrin Transferrin % Sat Ferritin NT-Pro-B Natriuret Pep Procalcitonin Nasal Screen MRSA (PCR) Stool Occult Bld Scrn Negative Blood Type O Negative Antibody Screen NEGATIVE Medications Administered Active Medications Generic Name Dose Route Start Last Admin Trade Name Freq PRN Reason Stop Dose Admin Acetaminophen 650 mg 04/27/19 11:19 04/28/19 22:13 Tylenol PO 05/27/19 11:18 650 mg Q4H PRN Administration pain Albuterol 3 ml 04/27/19 11:19 04/29/19 06:57 Duoneb INH 05/27/19 11:18 3 ml Q6H PRN Administration wheezing Albuterol 2 puffs 04/27/19 11:19 Ventolin Hfa INH 05/27/19 11:18 QID PRN Shortness Of Breath Or Wheezing Amlodipine Besylate 2.5 mg 04/28/19 09:00 04/29/19 08:20 Norvasc PO 05/28/19 08:59 2.5 mg QAM BAYLEE Administration Benzonatate 100 mg 04/27/19 11:19 04/29/19 08:18 Tessalon Perle PO 05/27/19 11:18 100 mg BID PRN Administration cough Budesonide 0.5 mg 04/27/19 11:19 04/29/19 06:57 Pulmicort Respules INH 05/27/19 11:18 0.5 mg Q12R BAYLEE Administration Cyanocobalamin 100 mcg 04/28/19 09:00 04/29/19 08:18 Vitamin B-12 PO 05/28/19 08:59 100 mcg DAILY BAYLEE Administration Diclofenac Sodium 4 gm 04/27/19 13:00 04/29/19 08:21 Voltaren 1% Top EXT 05/27/19 12:59 4 gm QID BAYLEE Administration Fexofenadine HCl 180 mg 04/28/19 09:00 04/29/19 08:18 Estee PO 05/28/19 08:59 180 mg DAILY BAYLEE Administration Hydroxyzine HCl 10 mg 04/27/19 11:19 04/29/19 08:20 Vistaril PO 05/27/19 11:18 10 mg Q8H PRN Administration Anxiety Furosemide 40 mg/ Syringe 4 mls @ 4 mls/min 04/29/19 09:00 04/29/19 08:18 IV 05/29/19 08:59 4 mls/min QAM BAYLEE Administration Levothyroxine Sodium 75 mcg 04/27/19 11:19 04/29/19 05:42 Synthroid PO 05/27/19 11:18 75 mcg Q2D@0630 BAYLEE Administration Levothyroxine Sodium 50 mcg 04/28/19 06:30 04/28/19 06:19 Synthroid PO 05/28/19 06:29 50 mcg Q2D@0630 BAYLEE Administration Magnesium Hydroxide 30 ml 04/27/19 11:19 Milk Of Magnesia PO 05/27/19 11:18 Q12H PRN Constipation Magnesium Oxide 400 mg 04/29/19 09:00 04/29/19 08:20 Mag-Ox PO 05/29/19 08:59 400 mg QAM BAYLEE Administration Miscellaneous 1 ea 04/27/19 16:00 04/29/19 08:06 Order Awaiting Action N/A 05/27/19 15:59 Not Given QS BAYLEE Miscellaneous 1 ea 04/27/19 16:00 04/29/19 08:06 Order Awaiting Action N/A 05/27/19 15:59 Not Given QS BAYLEE Montelukast Sodium 10 mg 04/28/19 09:00 04/29/19 08:19 Singulair PO 05/28/19 08:59 10 mg DAILY BAYLEE Administration Multivitamins/Minerals 0.5 tab 04/28/19 09:00 04/29/19 08:19 Caltrate Plus PO 05/28/19 08:59 0.5 tab QAM BAYLEE Administration Nitroglycerin 0.4 mg 04/27/19 11:19 Nitrostat SL 05/27/19 11:18 UD PRN Chest Pain Non-Formulary Medication 2 liter 04/27/19 11:19 Oxygen Home NA 05/27/19 11:18 .MEDSUPPLY [facility] Ondansetron HCl 4 mg 04/27/19 11:19 Zofran IV 05/27/19 11:18 Q6H PRN Nausea Pantoprazole Sodium 40 mg 04/28/19 09:00 04/29/19 08:19 Protonix PO 05/28/19 08:59 40 mg DAILY BAYLEE Administration Polyethylene Glycol 17 gm 04/27/19 11:19 Miralax Powder Packet PO 05/27/19 11:18 DAILY PRN Constipation Potassium Chloride 20 meq 04/28/19 09:00 04/29/19 08:19 Klor-Con M20 PO 05/28/19 08:59 20 meq DAILY BAYLEE Administration Potassium Chloride 20 meq 04/29/19 04:15 04/29/19 04:20 Klor-Con M20 PO 04/29/19 12:16 20 meq Q4H BAYLEE Administration Prednisone 30 mg 04/29/19 09:00 04/29/19 08:18 Prednisone PO 06/02/19 08:59 30 mg QAM BAYLEE Administration Taper Rivaroxaban 20 mg 04/28/19 21:00 04/28/19 17:16 Xarelto PO 05/27/19 11:18 20 mg HS BAYLEE Administration Vitamin D 1,000 units 04/28/19 09:00 04/29/19 08:20 Vitamin D3 PO 05/28/19 08:59 1,000 units QAM BAYLEE Administration PG Care Time/CCT Total # of Minutes Spent Total Time Spent with Patient: Total time spent is greater than 50% in coordination of care (as documented) at patient's floor/unit and/or counseling patient: Coding Level of Care Code 66772 Subseq Hosp Care Lvl 3 Diagnoses Hypervolemia E87.70 Atrial fibrillation I48.11 Atrial fibrillation type: longstanding persistent Peripheral edema R60.9 Hypertension I10 Hypertension type: essential hypertension Respiratory failure J96.91 Chronicity: unspecified Respiratory failure complication: hypoxia (1) Atrial fibrillation Atrial fibrillation type: longstanding persistent Qualified Code(s): I48.11 - Longstanding persistent atrial fibrillation (2) Respiratory failure Chronicity: unspecified Respiratory failure complication: hypoxia Qualified Code(s): J96.91 - Respiratory failure, unspecified with hypoxia (3) Hypertension Hypertension type: essential hypertension Qualified Code(s): I10 - Essential (primary) hypertension
[2019-04-29] MEDS ORDERED: FUROSEMIDE 40 MG in SYRINGE 0 ML IV SCH ×2 (09:00→17:00)
[2019-04-29] MEDS ORDERED: predniSONE 20 MG TAB PO SCH (09:00)
[2019-04-29] MEDS ORDERED: NEOMYCIN/POLYMYX/BACITR OINT 15 GM TUBE EXT PRN (09:12)
--- NOTE | 2019-04-29 13:21 | Hospitalist Progress Note ---
Date of Service April 29, 2019 Assessment & Plan (1) Acute and chronic respiratory failure with hypoxia: Discussed with Dr Goodrich and will place formal consult as clinical picture appears less clear - she certainly has a lot of pulmonary edema but the cause of this uncertain and suspect respiratory inflammatory disease may be playing a larger part than first thought. (2) Inflammation of lung: As above. Consult pulmonology - for bronchoscopy tomorrow. Will defer steroids to pulmonology but I suspect part of her feeling worse generally today is due to significant dose reduction. Suspect we will need to increase these s/p bronchoscopy. (3) Iron deficiency anemia: FOB negative. Possibly diet related as she reports reduced diet since October but Iron sats 3%. FOB positive. Will defer GI consult given current SOB and hypoxia she is not current candidate for EGD. Patient already on pantoprazole. No acute Hgb drop to suggest ongoing large bleeding. Hemoglobin iron deficit (mg) = 84.2kg x (14 - 9.3) x (2.145) = 850 mg Will give total of 5 doses of 200mg elemental iron as Venofer. First dose today (4) Hypervolemia: It appears her hypervolemia predates the steroid-induced hypervolemia therefore feel there is an additional process occurring. Discussed with Dr Cantu and suspect ?capillary leakage from inflammatory lung disease is the best explanation Will decrease cardios recommendation of lasix 40mg BID back to OD as she is diuresing very well just on daily dosing - this was discussed with Dr Cantu who is in agreement. I&O's and daily weights. Na restricted diet. Daily BMP with potassium replacement as necessary Agree patient will need a lasix sliding scale on discharge. (5) Atrial fibrillation: Discussed with Dr Cantu and rate appropriate for current illness and agree RVR does not appear to be the primary process leading to heart failure here as she should be improving whereas her O2 requirement actually increased today. Xarelto on hold for bronchoscopy tomorrow. (6) Peripheral edema: Improving Secondary to right heart failure as above from hypervolemic state. (7) Hypertension: Continue Amlodipine 2.5 mg daily. Possibly change to ACEi prior to discharge depending on resolution of leg edema. (8) Hypothyroid: Chronic. Stable - TSH 1.49 Patient alternates 75mcg and 50mcg dosing -- continue home schedule (9) Allergic rhinitis due to allergen: Continue home montelukast 10mg, fexofenadine 180mg (10) DVT prophylaxis: Xarelto held for bronchoscopy, can be restarted after this procedure. Admission and Anticipated Discharge Date Admission Date: April 27, 2019 Subjective Feels no real change from yesterday in terms of shortness of breath. Possibly a little worse. No chest pain. Non-productive cough. Increased O2 requirement yesterday afternoon. Desaturates with any significant exertion or even talking. Positive for orthopnea and PND, having to sleep with head elevated. No recurrence in hemoptysis. No palpitations. Review of Systems Review of Systems: All systems reviewed & are unremarkable except as noted in HPI & below Physical Exam Constitutional: WD/WN, vitals as above no acute distress Eyes: + anicteric sclerae; normal pupil size ENMT: external ear and nose normal, oropharynx normal Neck: trachea midline, no thyromegaly Respiratory: + uses accessory muscles and able to speak in complete sentences (desaturates with long sentences); no respiratory distress, no labored breathing and no retractions Auscultation: + crackles (Bibasal coarse, improved); no diminished lung sounds, no rales and no wheezes Cardiovascular: Rate/Rhythm: + tachycardic and + irregularly irregular Heart Sounds: no murmur Vessels: + JVD Extremities: + edema (2+ b/l LE, more wrinkles than previous day) Gastrointestinal (Abdomen): Inspection/Auscultation: + abdomen distended and normal bowel sounds Percussion/Palpation: abdomen soft; abdomen nontender, no guarding and abdomen not rigid Musculoskeletal: no cyanosis or clubbing, extremities motor strength 5/5 Skin: no rashes, warm and dry Neurologic: moves all extremities and awake; no focal motor deficits and not confused Speech / Cognition: normal speech Motor/Sensory: no tremor and no pronator drift Psychiatric: A+Ox3, euthymic affect Results & Data ([facility]) Vital Signs (Past 12 Hours) Vital Signs Temp Pulse Pulse Pulse Resp BP Pulse Ox 04/29/19 11:32 36.5 C 80 19 162/92 H 96 04/29/19 07:11 36.4 C L 89 19 154/92 H 90 04/29/19 07:01 91 H 22 93 04/29/19 06:58 91 H 22 93 04/29/19 04:42 100 H 26 H 92 04/29/19 04:00 36 C L 111 H 20 157/92 H 88 L PG Care Time/CCT Total # of Minutes Spent Total Time Spent with Patient: Total time spent is greater than 50% in coordination of care (as documented) at patient's floor/unit and/or counseling patient: Coding Level of Care Code 04510 Subseq Hosp Care Lvl 3 Diagnoses Acute and chronic respiratory failure with hypoxia J96.21 Inflammation of lung J18.9 Iron deficiency anemia D50.9 Iron deficiency anemia type: unspecified iron deficiency Hypervolemia E87.79 Hypervolemia type: other Atrial fibrillation I48.11 Atrial fibrillation type: longstanding persistent Peripheral edema R60.9 Hypertension I10 Hypertension type: essential hypertension Hypothyroid E03.9 Hypothyroidism type: unspecified Allergic rhinitis due to allergen J30.9 Allergic rhinitis seasonality: unspecified Allergic rhinitis trigger: unspecified DVT prophylaxis Z29.9 (1) Atrial fibrillation Atrial fibrillation type: longstanding persistent Qualified Code(s): I48.11 - Longstanding persistent atrial fibrillation (2) Hypothyroid Hypothyroidism type: unspecified Qualified Code(s): E03.9 - Hypothyroidism, unspecified (3) Iron deficiency anemia Iron deficiency anemia type: unspecified iron deficiency Qualified Code(s): D50.9 - Iron deficiency anemia, unspecified (4) Allergic rhinitis due to allergen Allergic rhinitis seasonality: unspecified Allergic rhinitis trigger: unspecified Qualified Code(s): J30.9 - Allergic rhinitis, unspecified (5) Hypertension Hypertension type: essential hypertension Qualified Code(s): I10 - Essential (primary) hypertension (6) Hypervolemia Hypervolemia type: other Qualified Code(s): E87.79 - Other fluid overload
--- NOTE | 2019-04-29 13:41 | Pulmonology Progress Note ---
Date of Service April 29, 2019 Assessment & Plan (1) Acute and chronic respiratory failure with hypoxia: Impression: 78-year-old female with hypoxemic respiratory failure and diffuse pulmonary infiltrates with scant hemoptysis. She has had a slight decrease in her hemoglobin. Given the fact that she is anticoagulated and her radiographic pattern, I am concerned about the possibility of pulmonary hemorrhage. This was not identified during her prior bronchoscopy but she was on steroids at that point time. She certainly could have a component of diastolic heart failure as well given her markedly elevated BNP and lower extremity edema and continue diuresis is recommended. Recommendations: 1. Abnormal CT scan: Given the differential and potential therapeutic interventions, I favor bronchoscopy with BAL. Unfortunately the patient ate today and the earliest it can be done is tomorrow. I think this is reasonable. After extensive discussion with the patient she is agreed to proceed. The differential would include atypical pulmonary edema, pulmonary hemorrhage, or other interstitial lung disease. May need to consider repeating her CT scan but for now I do not think that would significantly change our diagnostic algorithm. Do not see much utility in repeating her serological evaluation at this point in time although I will repeat a urinalysis to see if she has persistent hematuria. This does appear to be a steroid responsive illness based on her prior approaches. She is already been placed on prednisone 30 mg daily as of today. I would like to try and get samples as soon as possible to ascertain if our prior bronchoscopy was a false negative because it was performed on steroids. I did advise the patient that if her breathing should worsen she may require intubation mechanical ventilation. I also advised her that she may require intubation to facilitate the bronchoscopy but I believe this is medically necessary. 2. Hypoxemic respiratory failure: Secondary to diffuse pulmonary infiltrates. Recommend continue diuretics. Noninvasive positive pressure ventilation may be utilized if the patient feels it is offering her clinical benefit. Otherwise can transition to high flow heated nasal cannula. Recommend keeping saturations above 90%. 3. History of asthma, I do not believe that the current infiltrates are related to asthma. She does not appear bronchospastic currently. (2) Acute diastolic CHF (congestive heart failure): (3) Abnormal CT scan of lung: Subjective Patient seen at the request of the hospitalist for evaluation management of hypoxemic respiratory failure and diffuse pulmonary infiltrates. I know this patient from prior admission back in January. At that point time she presented with upper lobe pulmonary infiltrates. She had an extensive serological evaluation putting hypersensitivity pneumonitis panel, rheumatoid factor, anti-CCP, ANCA, and ARTEMIO all of which were negative. She underwent bronchoscopy with BAL which showed no evidence of pulmonary hemorrhage at that point time. Transbronchial biopsies were performed with patchy fibrotic and chronic inflammatory changes with no evidence of malignancy. BAL cultures at that time were also negative. The patient at that point time was discharged on prednisone. She has been seen back in follow-up on several occasions in the pulmonary clinic and radiographically and clinically was markedly improved. The patient presented to the emergency room on the with shortness of breath and an abnormal chest x-ray. She been experiencing a cough which was nonproductive. She had been treated in the outpatient setting with Levaquin and was also placed on steroids. She was noted to be hypoxemic. She had a markedly elevated BNP of over 6000. Cardiology consultation was obtained. They felt this may be related to fluid retention secondary to corticosteroids. Pulmonary was consulted today due to lack of symptomatic improvement. Overnight last night the patient did develop an increasing oxygen requirement. She was placed on BiPAP. She does endorse that she has been experiencing some scant hemoptysis. Her chest x-ray does demonstrate new progressive bilateral patchy pulmonary infiltrates. She is not had any skin rashes or lesions. Review of Systems Review of Systems: Please refer to admission H&P Physical Exam Constitutional: + in distress Currently on full face BiPAP Neck: trachea midline, no thyromegaly Respiratory: normal respiratory effort, lungs clear to auscultation Cardiovascular: Rate/Rhythm: regular rate Heart Sounds: normal S1 and normal S2 Extremities: + edema Gastrointestinal (Abdomen): normal bowel sounds, soft, nontender, no hepatosplenomegaly Musculoskeletal: Extremities: extremities normal to inspection Skin: no rashes, warm and dry Neurologic: Nonfocal exam Lymphatic: no cervical lymphadenopathy Results & Data ([facility]) Vital Signs (Past 12 Hours) Vital Signs Temp Pulse Pulse Pulse Resp BP Pulse Ox 04/29/19 11:32 36.5 C 80 19 162/92 H 96 04/29/19 11:00 04/29/19 07:11 36.4 C L 89 19 154/92 H 90 04/29/19 07:01 91 H 22 93 04/29/19 06:58 91 H 22 93 04/29/19 04:42 100 H 26 H 92 04/29/19 04:00 36 C L 111 H 20 157/92 H 88 L Pulse Ox 04/29/19 11:32 04/29/19 11:00 93 04/29/19 07:11 04/29/19 07:01 04/29/19 06:58 04/29/19 04:42 04/29/19 04:00 Laboratory Results 04/29/19 05:32 04/29/19 05:32 Procalcitonin negative Diagnostic Findings Chest x-ray from 04/28/2019 was independently reviewed. There are patchy bilateral infiltrates which are markedly progressed compared to prior films from February and March of this year. PG Care Time/CCT Total # of Minutes Spent Total Time Spent with Patient: Total time spent is greater than 50% in coor dination of care (as documented) at patient's floor/unit and/or counseling patient: Coding Level of Care Code 15865 Inpt Consult Level 4 Diagnoses Acute and chronic respiratory failure with hypoxia J96.21 Acute diastolic CHF (congestive heart failure) I50.[address] scan of lung R91.8
[2019-04-29] MEDS ORDERED: SODIUM CHLORIDE 0.9% IV ONE (14:00)
[2019-04-29] MEDS ORDERED: IRON SUCROSE IV ONE (14:00)
[2019-04-29] MEDS ORDERED: IRON SUCROSE 150 MG in 0.9 % SODIUM CHLORIDE 100 ML IV ONE (15:30)
--- NOTE | 2019-04-29 21:34 | Electrocardiogram Report ---
Test Reason : Blood Pressure : / mmHG Vent. Rate : 099 BPM Atrial Rate : 000 BPM P-R Int : 000 ms QRS Dur : 082 ms QT Int : 370 ms P-R-T Axes : 000 004 065 degrees QTc Int : 474 ms Atrial fibrillation with premature ventricular or aberrantly conducted complexes Low voltage QRS Septal infarct (cited on or before 10-JUL-2017) Abnormal ECG When compared with ECG of 28-APR-2019 06:29, No significant change Confirmed by Dov Rodriguez [id number]) on 04/29/2019 9:33:50 PM Referred By: REFERRED SELF Confirmed By:Dov Rodriguez
[2019-04-29] MEDS ORDERED: OLANZAPINE 2.5 MG TAB PO PRN (23:06)
[2019-04-29] MEDS ORDERED: OLANZAPINE 2.5 MG TAB PO STA (23:06)
[2019-04-29] MEDS: ACETAMINOPHEN 325 MG TAB PO PRN (23:35)
[2019-04-30] MEDS ORDERED: FUROSEMIDE 20 MG in SYRINGE 0 ML IV ONE (03:58)
[2019-04-30] MEDS: LEVOTHYROXINE SODIUM 50 MCG TABLET PO SCH (05:35)
[2019-04-30 06:01] LABS: Basophils # (auto) 0.01 K/uL (0-0.2); Basophils % (auto) 0.1 %; Eosinophils # (auto) 0.02 K/uL (0-0.5); Eosinophils % (auto) 0.1 %; Hematocrit (blood only) 31.8 % (37-47); Hemoglobin 9.5 g/dL (12.0-16.0); Immature Granulocytes # (auto) 0.09 K/uL (0.00-0.02); Immature Granulocytes % (auto) 0.6 %; Lymphocytes # (auto) 1.14 K/uL (1.2-3.4); Lymphocytes % (auto) 7.4 %; Mean Corpuscular Hemoglobin 24.2 pg (25-34); Mean Corpuscular Hgb Conc 29.9 g/dL (32-36); Mean Corpuscular Volume 80.9 fL (80-100); Mean Platelet Volume 9.1 fL (7.4-10.4); Monocytes % (auto) 10.3 %; Neutrophils # (auto) 12.65 K/uL (1.4-6.5); Neutrophils % (auto) 81.5 %; Nucleated RBC # (auto) 0.09 K/uL (0-0); Nucleated RBC % (auto) 0.6 %; Platelet Count 403 K/uL (130-400); RDW Standard Deviation 47.6 fL (36.4-46.3); Red Blood Count 3.93 M/uL (4.2-5.4); White Blood Count 15.51 K/uL (4.8-10.8)
[2019-04-30 06:12] LABS: INR 1.4 (0.9-1.1); Partial Thromboplastin Time 26.8 Seconds (21.0-31.0)
[2019-04-30 06:34] LABS: BUN Creatinine Ratio 45.6 (10-20); C Reactive Protein 3.63 mg/dl (0-0.29); Creatinine Clr Calc Pharmacy 71.8 ml/min; Est GFR (African American) 96.7; Est GFR (Non-African American) 83.4; Potassium 3.3 mmol/L (3.5-5.1)
[2019-04-30] MEDS: BUDESONIDE 0.5 MG/2 ML VIAL (PULMICORT) INH SCH ×2 (07:03→19:03)
[2019-04-30] MEDS: ALBUT/IPRATROP 3MG/0.5MG NEB 3 ML VIAL INH PRN (07:03)
--- NOTE | 2019-04-30 08:12 | History & Physical Bridge Note ---
Date of Service April 30, 2019 History & Physical Bridge Note I have examined the patient, reviewed the History & Physical and in the interval since the performance of the History & Physical I have noted the following changes of clinical significance: no changes noted
--- NOTE | 2019-04-30 08:12 | Pre Anesthesia Assessment ---
Date of Service April 30, 2019 Pre Sedation Assessment Vital Signs Temp Pulse Pulse Pulse Resp BP BP 04/30/19 08:10 108 H 24 151/82 H 04/30/19 07:06 94 H 18 04/30/19 07:01 36.5 C 94 H 18 132/83 04/30/19 04:08 36.6 C 98 H 22 158/98 H 04/30/19 00:00 36.7 C 110 H 92 H 20 138/85 04/29/19 22:16 88 18 04/29/19 19:41 86 20 04/29/19 14:55 36.7 C 98 H 18 111/64 04/29/19 11:32 36.5 C 80 19 162/92 H 04/29/19 11:00 Pulse Ox Pulse Ox 04/30/19 08:10 92 04/30/19 07:06 88 L 04/30/19 07:01 83 L 04/30/19 04:08 90 04/30/19 00:00 88 L 04/29/19 22:16 93 04/29/19 19:41 90 04/29/19 14:55 90 04/29/19 11:32 96 04/29/19 11:00 93 Pre-Sedation Airway Assessment Smoking Status: Former smoker Hx Sleep Apnea: Yes (does not wear c pap) Short, Thick Neck: Yes Thyromental Distance: < 3.5 Finger Breadths Oral Cavity: + WNL Mallampati Class: II ASA: ASA3 NPO Status Date of Last Intake of Fluids: 04/30/19 Time of Last Intake of Fluids: 00:00 Last Oral Intake of Fluids Comment: sip with thryoid medication Date of Last Intake of Solid Food: 04/30/19 Time of Last Intake of Solid Foods: 00:00 Notes The planned sedation has been discussed with the patient. Informed Consent was obtained. I have identified the patient, determined the appropriateness of sedation and have assessed the patient immediately prior to the procedure. All medicine(s) and interventions are by my order.
--- NOTE | 2019-04-30 08:29 | Post Anesthesia Assessment ---
Date of Service April 30, 2019 Post Sedation Assessment Vital Signs Temp Pulse Pulse Pulse Resp BP BP 04/30/19 08:25 110 H 26 H 120/94 04/30/19 08:20 101 H 22 126/59 L 04/30/19 08:15 110 H 22 141/72 H 04/30/19 08:10 108 H 24 151/82 H 04/30/19 07:06 94 H 18 04/30/19 07:01 36.5 C 94 H 18 132/83 04/30/19 04:08 36.6 C 98 H 22 158/98 H 04/30/19 00:00 36.7 C 110 H 92 H 20 138/85 04/29/19 22:16 88 18 04/29/19 19:41 86 20 04/29/19 14:55 36.7 C 98 H 18 111/64 04/29/19 11:32 36.5 C 80 19 162/92 H 04/29/19 11:00 Pulse Ox Pulse Ox 04/30/19 08:25 99 04/30/19 08:20 99 04/30/19 08:15 97 04/30/19 08:10 92 04/30/19 07:06 88 L 04/30/19 07:01 83 L 04/30/19 04:08 90 04/30/19 00:00 88 L 04/29/19 22:16 93 04/29/19 19:41 90 04/29/19 14:55 90 04/29/19 11:32 96 04/29/19 11:00 93 Recovery Score Activity: Moves 4 extremities Respiration: Deep Breath/Cough Circulation: +/-20% PreAnes Value Consciousness: Arouseable (by name) Oxygen Saturation: O2 needed for >90% Post Anesthesia Score: 8 Discharge Sedation Level of Care: Fast Track Phase II Post Sedation Plan On clinical assessment, the patient appears to have tolerated the sedation without complications. Patient is recovering as anticipated. Patient will continue to be monitored by nursing and may be discharged when sedation discharge criteria are met per below protocol. Upon Completions of procedure up to 15 minutes continue every 5 minute vital signs and the P.A.R. score; then discharge to a Phase I or Fast Track to Phase II per the following guidelines: * Discharge Patient to appropriate Phase II area if PAR is 8 or greater or r eturn to pre- procedure baseline. The post - procedure orders will be as directed. * If PAR score is less than 8 or not return to pre-procedure baseline then patient will follow Phase I monitoring till PAR is reached for Phase II. The Phase I may be done in procedure room or may call to secure a Phase I area. * If naloxone or flumazenil are used for reversal, hold in Phase I for continued monitoring from when last reversal dose was given for a minimum of 60 minutes or longer pending the nurse and/or physician discretion of patient condition before discharge to Phase II. Please call the Sedation Physician to re-evaluate and complete post-note for discharge to Phase II area. Do NOT discharge from procedure sedation or Phase 1 until post- sedation evaluation note is complete by procedure /sedation MD Sedation Discharge Instructions to be given to the patient at discharge to home.
[2019-04-30] MEDS ORDERED: LIDOCAINE HCL 2% (LOCAL) INJ 50 ML VIAL INFIL STA (08:30)
[2019-04-30] MEDS ORDERED: LIDOCAINE 4% INH SOLN 4 ML BTL INH ONE (08:30)
[2019-04-30] MEDS ORDERED: fentaNYL citrate 100 MCG/2 ML VIAL IV ONE (08:30)
[2019-04-30] MEDS ORDERED: MIDAZOLAM HCL 1 MG/ML 2ML VIAL IV ONE (08:33)
--- NOTE | 2019-04-30 08:34 | Procedure Note ---
Procedure Note: Bronchoscopy Procedure Procedure: Fiberoptic bronchoscopy Bronchoalveolar lavage Conscious sedation Provider: Judd Goodrich MD Consent: Signed by patient and timeout verified prior to procedure. Sedation start:813 Sedation end:824 Conscious sedation: 4 mg Versed, 100 mcg fentanyl. Topical lidocaine per RT protocol Procedure: Patient was brought to the bronchoscopy suite. Consent was verified. Appropriate radiographic studies had been reviewed prior to the procedure. Standard monitoring was applied. Oxygen was administered. After topical anesthesia of the airways per respiratory therapy protocol, the fiberoptic scope was advanced through the right nares. Oropharynx was unremarkable. Vocal cords were visualized and were normal in function and appearance. There was a small amount of thin bloody secretions at the level of the glottis. Topical anesthesia of the cords was achieved with instillation of lidocaine through the scope. Scope was then passed through the vocal cords. The trachea was mildly tortuous with some evidence of dynamic collapse. Main deyanira was sharp. Anesthesia of the lower airways was achieved with instillation of lidocaine through the scope. A sequential and systematic examination of the lower airways was conducted. The right-sided airways were patent without endobronchial lesion and the mucosa appeared normal. Left-sided airways were widely patent and the mucosa appeared normal. There were some scant thin bloody secretions present in the lower respiratory tree. After the inspection bronchoscopy was completed, the scope was wedged into the anterior segment of the right upper lobe. A BAL was performed with instillation of 3 aliquots of 60 cc of sterile saline. Return was slightly suboptimal due to dynamic airway collapse and patient coughing but the returns did appear to be slightly increasingly bloody consistent with pulmonary hemorrhage. The bronchoscope was then removed from the airways. The patient tolerated the procedure well without obvious complication. Patient was returned to the recovery room. Impression: 1. Relatively normal inspection bronchoscopy. 2. BAL consistent with probable pulmonary hemorrhage.
--- NOTE | 2019-04-30 08:38 | Pulmonology Progress Note ---
Date of Service April 30, 2019 Assessment & Plan (1) Acute and chronic respiratory failure with hypoxia: Impression: 78-year-old female with hypoxemic respiratory failure and diffuse pulmonary infiltrates with scant hemoptysis. Bronchoscopy with BAL performed today was consistent with alveolar hemorrhage which again may be secondary to anticoagulation in conjunction with elevated diastolic filling pressures or primary pulmonary vasculitis although previous serological evaluation was negative. Recommendations: 1. Alveolar hemorrhage: Recommend discontinuing anticoagulation at this point time and high-dose steroids. Will change prednisone to Solu-Medrol. We will repeat her serological evaluation at this point time. Urinalysis was ordered yesterday but is still pending. 2. Hypoxemic respiratory failure: Secondary to diffuse pulmonary infiltrates. Recommend continue diuretics. Continue high flow heated oxygen titrated to keep saturations at or above 90 per 3. History of asthma, I do not believe that the current infiltrates are related to asthma. She does not appear bronchospastic currently. (2) Acute diastolic CHF (congestive heart failure): (3) Abnormal CT scan of lung: Subjective Patient seen and examined in the bronchoscopy suite. She is now off BiPAP. She remains in atrial fibrillation with rapid ventricular response. She continues to cough and expectorate somewhat bloody phlegm. Bronchoscopy performed this morning. Please see separate notes. Findings were consistent with mild alveolar hemorrhage. Unclear if this is related to heart failure, anticoagulation, or primary pulmonary vasculitis although her serological work- up previously was negative. Would favor diastolic heart failure in conjunction with anticoagulation. Review of Systems Review of Systems: Unchanged from prior Physical Exam Constitutional: + in distress ENMT: Mallampati Class: II Neck: trachea midline, no thyromegaly Respiratory: normal respiratory effort, lungs clear to auscultation Cardiovascular: Rate/Rhythm: regular rate Heart Sounds: normal S1 and normal S2 Extremities: + edema Gastrointestinal (Abdomen): normal bowel sounds, soft, nontender, no hepatosplenomegaly Musculoskeletal: Extremities: extremities normal to inspection Skin: no rashes, warm and dry Lymphatic: no cervical lymphadenopathy Results & Data ([facility]) Vital Signs (Past 12 Hours) Vital Signs Temp Pulse Pulse Pulse Resp BP BP 04/30/19 08:25 110 H 26 H 120/94 04/30/19 08:20 101 H 22 126/59 L 04/30/19 08:15 110 H 22 141/72 H 04/30/19 08:10 108 H 24 151/82 H 04/30/19 07:06 94 H 18 04/30/19 07:01 36.5 C 94 H 18 132/83 04/30/19 04:08 36.6 C 98 H 22 158/98 H 04/30/19 00:00 36.7 C 110 H 92 H 20 138/85 04/29/19 22:16 88 18 Pulse Ox 04/30/19 08:25 99 04/30/19 08:20 99 04/30/19 08:15 97 04/30/19 08:10 92 04/30/19 07:06 88 L 04/30/19 07:01 83 L 04/30/19 04:08 90 04/30/19 00:00 88 L 04/29/19 22:16 93 Laboratory Results 04/30/19 05:36 04/30/19 05:36 Urinalysis not yet collected Diagnostic Findings No new films PG Care Time/CCT Total # of Minutes Spent Total Time Spent with Patient: Total time spent is greater than 50% in coordination of care (as documented) at patient's floor/unit and/or counseling patient: Coding Level of Care Code 15116 Subseq Hosp Care Lvl 3 Diagnoses Acute and chronic respiratory failure with hypoxia J96.21 Acute diastolic CHF (congestive heart failure) I50.[address] scan of lung R91.8
[2019-04-30] MEDS ORDERED: ETOMIDATE 2 MG/ML 20 ML VIAL IV ONE (09:41)
[2019-04-30] MEDS ORDERED: SUCCINYLCHOLINE CHLORIDE 20 MG/ML 10 ML VIAL IV ONE (09:41)
[2019-04-30] MEDS ORDERED: fentaNYL citrate 100 MCG/2 ML CARP IV ONE (09:41)
[2019-04-30] MEDS ORDERED: ROCURONIUM BROMIDE 10 MG/ML 5 ML VIAL IV ONE (09:41)
[2019-04-30] MEDS ORDERED: MIDAZOLAM HCL 5 MG/ML 1 ML VIAL IV ONE (09:41)
[2019-04-30 10:24] LABS: Basophil Body Fluid Man 0 %; Eosinophil Body Fluid Man 0 %; Fluid Mono/Macrophage 48 %; Lymphocyte Body Fluid Man 20 %; Neutrophil Body Fluid Man 32 %
[2019-04-30] MEDS ORDERED: ICU PROTOCOL FOR HYPERGLYCEMIA PRN (10:44)
[2019-04-30] MEDS ORDERED: ICU ELECTROLYTE REPLACEMENT PROTOCOL PRN (10:47)
[2019-04-30] MEDS: methylPREDNISolone 125 MG in SYRINGE 0 ML IV SCH ×3 (12:39→23:26)
[2019-04-30] MEDS ORDERED: PROPOFOL IV EMULSION 10 MG/ML 100 ML VIAL IV ONE (12:56)
[2019-04-30] MEDS ORDERED: RAPID SEQUENCE INDUCTION BAG ONE (12:56)
[2019-04-30] MEDS: FUROSEMIDE 40 MG in SYRINGE 0 ML IV SCH (13:04)
[2019-04-30] MEDS: FEXOFENADINE HCL 180 MG TAB PO SCH (13:04)
[2019-04-30] MEDS: POTASSIUM CHLORIDE 20 MEQ TABCR PO SCH (13:05)
[2019-04-30] MEDS: PANTOprazole 40 MG TAB PO SCH (13:05)
[2019-04-30] MEDS: CYANOCOBALAMIN (VITAMIN B-12) 100 MCG TABLET PO SCH (13:05)
[2019-04-30] MEDS: AMLODIPINE BESYLATE 5 MG TAB PO SCH (13:05)
[2019-04-30] MEDS: CHOLECALCIFEROL 1,000 UNITS 25 MCG TAB PO SCH (13:05)
[2019-04-30] MEDS: MAGNESIUM OXIDE 400 MG TAB PO SCH (13:05)
[2019-04-30] MEDS: CALCIUM 600MG + VIT D 400 IU TAB PO SCH (13:05)
[2019-04-30] MEDS: DICLOFENAC SOD 1% GEL 100 GM TUBE EXT SCH ×4 (13:06→20:16)
--- NOTE | 2019-04-30 13:18 | Cardiology Progress Note ---
Date of Service April 30, 2019 Assessment & Plan (1) Hypervolemia: Mrs. Malone is an 78 year old female with a history of Hypertension, Dyslipidemia, Permanent Atrial Fibrillation (rates currently 90's to low 100's), Mild Concentric LVH, Panic/Somatization Disorder, Hypothyroidism, Idiopathic Thrombocytopenic Purpura, Positive ARTEMIO, Asthma, Multiple Allergies, Chronic Venous Insufficiency, Anemia, history of Capillaritis, Elevated ESR, Recurrent Pneumonic Infiltrates / Processes, and now a Pulmonary Hemorrhage -- who was admitted on 04/27/2019 with Acute Diastolic CHF and Hypervolemia (which was likely related to steroid induced fluid retention). Patient has had a good diuretic response and has a negative fluid balance of > 10 liters since being admitted. Recommend the following: -- Continue IV Lasix 40 mg daily until euvolemic / return to "dry weight". -- Continue Amlodipine 2.5 mg daily. -- Anticoagulation is being held due pulmonary hemorrhage. -- Supplement Potassium as needed. -- Monitor daily I&O's and body weights. -- Monitor renal function closely. -- 2 Gram low sodium diet. -- Patient will likely need ongoing corticosteroid therapy upon discharge from the hospital -- would recommend starting oral diuretic therapy to be taken according to her body weights / sliding scale dosing. (2) Atrial fibrillation: Permanent Atrial Fibrillation: -- Holding anticoagulation for now -- Resume Xarelto 20 mg daily when okay with Pulmonology. -- Consider changing Amlodipine to Verapamil or Diltiazem if her V rates stay elevated. (3) Peripheral edema: Improving. -- Continue medications as outlined above. (4) Hypertension: -- Continue current regimen for now. (5) Respiratory failure: -- Pulmonology input is greatly appreciated. Admission and Anticipated Discharge Date Admission Date: April 27, 2019 Supervising Physician Co-Signing Physician Notes Xavi Cantu MD Subjective Mrs. aMlone is currently being seen in the ICU. Patient underwent bronchoscopy this morning and was noted to have pulmonary hemorrhage. Patient is still somewhat somnolent, and she is on BiPAP at the present time. She does not open her eyes and is trying to adjust her facemask -- she is still SOB but denies chest pain or discomfort. Patient has a negative fluid balance of > 10 liters and her renal function is holding steady. Physical Exam Physical Exam: GENERAL: Patient currently with BiPAP in place, she is in no acute distress. HEENT: Head is atraumatic, normocephalic. EOM's intact. Facies symmetric. No perioral cyanosis. NECK: JVP remains elevated. Carotid upstrokes are + 2 bilaterally. No bruits are noted. CHEST/LUNGS: Breath sounds are present bilaterally with scattered crackles. CVS: S1 and S2 are irregularly irregular at 110 bpm. No obvious murmurs, gallops, or rubs. PMI is nondisplaced. No abdominal aortic or renal bruits. ABDOMINAL EXAM: Bowel sounds are present. No masses, organomegaly, or tenderness. EXTREMITIES: No clubbing or cyanosis. No edema. Intact posterior tibial and radial pulses bilaterally. Telemetry: -- Atrial fibrillation with rates ranging 100 to 118 bpm this morning. Results & Data ([facility]) Vital Signs (Past 12 Hours) Vital Signs Temp Pulse Pulse Pulse Resp BP BP 04/30/19 12:30 122 H 28 H 04/30/19 12:20 131 H 37 H 04/30/19 12:15 124 H 31 H 04/30/19 12:02 117 H 27 H 132/69 04/30/19 12:00 106 H 28 H 04/30/19 11:47 100 H 25 H 137/74 04/30/19 11:45 102 H 27 H 04/30/19 11:36 107 H 28 H 04/30/19 11:32 109 H 27 H 120/70 04/30/19 11:30 103 H 26 H 04/30/19 11:17 108 H 29 H 129/86 04/30/19 11:15 105 H 29 H 04/30/19 11:08 106 H 33 H 04/30/19 11:02 97 H 29 H 138/84 04/30/19 11:00 112 H 24 04/30/19 10:45 100 H 27 H 04/30/19 10:44 37 C 102 H 24 129/86 04/30/19 10:33 93 H 27 H 04/30/19 10:32 103 H 28 H 121/69 04/30/19 10:30 107 H 25 H 04/30/19 10:28 04/30/19 09:45 108 H 22 118/63 04/30/19 09:20 101 H 24 04/30/19 09:15 99 H 24 04/30/19 09:10 92 H 24 04/30/19 09:05 108 H 24 04/30/19 09:00 106 H 20 04/30/19 08:55 110 H 22 04/30/19 08:50 123 H 20 04/30/19 08:45 109 H 24 04/30/19 08:40 130 H 22 04/30/19 08:35 117 H 22 04/30/19 08:30 119 H 26 H 04/30/19 08:25 110 H 26 H 04/30/19 08:20 101 H 22 04/30/19 08:15 110 H 22 04/30/19 08:10 108 H 24 04/30/19 07:45 128 H 04/30/19 07:30 111 H 04/30/19 07:15 138 H 04/30/19 07:06 94 H 18 04/30/19 07:01 36.5 C 94 H 18 132/83 04/30/19 07:00 96 H 04/30/19 06:45 96 H 04/30/19 06:30 98 H 04/30/19 06:15 112 H 04/30/19 06:00 101 H 04/30/19 05:45 95 H 04/30/19 05:30 105 H 04/30/19 05:15 94 H 04/30/19 05:00 94 H 04/30/19 04:45 100 H 04/30/19 04:30 96 H 04/30/19 04:15 99 H 04/30/19 04:08 36.6 C 98 H 22 158/98 H 04/30/19 04:00 104 H 04/30/19 03:45 94 H 04/30/19 03:30 100 H 04/30/19 03:15 112 H 04/30/19 03:00 81 04/30/19 02:45 79 04/30/19 02:30 78 04/30/19 02:15 87 04/30/19 02:00 80 04/30/19 01:45 92 H 04/30/19 01:30 117 H 04/30/19 01:15 108 H BP Pulse Ox 04/30/19 12:30 92 04/30/19 12:20 93 04/30/19 12:15 91 04/30/19 12:02 98 04/30/19 12:00 98 04/30/19 11:47 98 04/30/19 11:45 99 04/30/19 11:36 98 04/30/19 11:32 100 04/30/19 11:30 100 04/30/19 11:17 98 04/30/19 11:15 100 04/30/19 11:08 93 04/30/19 11:02 86 L 04/30/19 11:00 97 04/30/19 10:45 80 L 04/30/19 10:44 96 04/30/19 10:33 88 L 04/30/19 10:32 04/30/19 10:30 89 L 04/30/19 10:28 85 L 04/30/19 09:45 98 04/30/19 09:20 112/64 92 04/30/19 09:15 114/59 L 92 04/30/19 09:10 106/77 93 04/30/19 09:05 117/55 L 93 04/30/19 09:00 107/66 94 04/30/19 08:55 121/67 94 04/30/19 08:50 115/65 93 04/30/19 08:45 113/73 93 04/30/19 08:40 130/86 93 04/30/19 08:35 116/82 93 04/30/19 08:30 132/100 92 04/30/19 08:25 120/94 99 04/30/19 08:20 126/59 L 99 04/30/19 08:15 141/72 H 97 04/30/19 08:10 151/82 H 92 04/30/19 07:45 04/30/19 07:30 04/30/19 07:15 04/30/19 07:06 88 L 04/30/19 07:01 83 L 04/30/19 07:00 04/30/19 06:45 04/30/19 06:30 04/30/19 06:15 04/30/19 06:00 04/30/19 05:45 04/30/19 05:30 04/30/19 05:15 04/30/19 05:00 04/30/19 04:45 04/30/19 04:30 04/30/19 04:15 04/30/19 04:08 90 04/30/19 04:00 04/30/19 03:45 04/30/19 03:30 04/30/19 03:15 04/30/19 03:00 04/30/19 02:45 04/30/19 02:30 04/30/19 02:15 04/30/19 02:00 04/30/19 01:45 04/30/19 01:30 04/30/19 01:15 PG Care Time/CCT Total # of Minutes Spent Total Time Spent with Patient: Total time spent is greater than 50% in coordination of care (as documented) at patient's floor/unit and/or counseling patient: Coding Level of Care Code 64529 Subseq Hosp Care Lvl 3 Diagnoses Hypervolemia E87.79 Hypervolemia type: other Atrial fibrillation I48.11 Atrial fibrillation type: longstanding persistent Peripheral edema R60.9 Hypertension I10 Hypertension type: essential hypertension Respiratory failure J96.91 Chronicity: unspecified Respiratory failure complication: hypoxia (1) Atrial fibrillation Atrial fibrillation type: longstanding persistent Qualified Code(s): I48.11 - Longstanding persistent atrial fibrillation (2) Respiratory failure Chronicity: unspecified Respiratory failure complication: hypoxia Qualified Code(s): J96.91 - Respiratory failure, unspecified with hypoxia (3) Hypertension Hypertension type: essential hypertension Qualified Code(s): I10 - Essential (primary) hypertension (4) Hypervolemia Hypervolemia type: other Qualified Code(s): E87.79 - Other fluid overload
[2019-04-30] MEDS ORDERED: propofoL 1,000 MG/100 ML VIAL IV SCH (13:45)
[2019-04-30] MEDS ORDERED: POTASSIUM CHLORIDE 20 MEQ/15 ML UDC PO STA (14:15)
--- NOTE | 2019-04-30 14:26 | XRay Report ---
XR chest 1V portable CLINICAL HISTORY: ET tube and line placement RESPIRATORY FAILURE COMPARISON STUDY: 04/28/2019 FINDINGS: There is an endotracheal tube 43 mm above the deyanira. There is a left internal jugular cent ral venous catheter, the tip of which projects in the superior vena cava. No pneumothorax is visualiz ed. There is a nasogastric tube which passes to the stomach. The heart is mildly enlarged. There are moderately extensive bilateral relatively diffuse pulmonary airspace opacities a small left pleural e ffusion is suspected[ IMPRESSION: 1. Interval placement of an endotracheal tube 43 mm above the deyanira. Satisfactory positioning of a l eft internal jugular central venous catheter nasogastric tube. No evidence of pneumothorax 2. Persistent extensive bilateral pulmonary airspace opacities. The findings could represent pulmonar y edema, multifocal pneumonia, or ARDS. Clinical and radiographic follow-up is recommended ACT 112: Negative or not required by law. Electronically signed by: Fili Pardo M.D. 04/30/2019 2:24 PM
[2019-04-30] MEDS ORDERED: POTASSIUM CHLORIDE 20 MEQ/15 ML UDC NG ONE (14:30)
--- NOTE | 2019-04-30 14:54 | Procedure Note ---
Procedure Note Date of Service April 30, 2019 INTUBATION PROCEDURE NOTE: Provider: Judd Goodrich MD A time-out was completed verifying correct patient, procedure, site, positioning. Patient was evaluated and required intubation for progressive hypoxemic respiratory failure. Sedative agent used: Etomidate, 40 mg: Propofol 20 mL's Paralysis agent used: 1.5 mix per kick succinylcholine Emergent consent was implied given patients rapidly declining clinical status and need for airway protection. Discussed with patient's son Rajesh who agreed The patient was prepared in the appropriate fashion. Patient was preoxygenated using the BiPAP system. She was placed on FiO2 of 100%. Suction was available at the bedside. A previously tested 7.5 endotracheal tube was loaded over the glide scope stylette. Sedation was administered. A neck roll was placed under the patient's shoulders. Initial attempt with a glide scope yielded a grade 4 view and the patient was biting on the tube despite sedation therefore decision was made to proceed with [id number] ventilation followed by paralytics. This resulted in a grade 2 view. We were able to pass the endotracheal tube. Tube misting was identified. Bilateral breath sounds were auscultated. End- tidal CO2 was detected. Post procedure chest x-ray was performed and revealed the endotracheal tube to be about 4 cm above the deyanira. The tube was secured in place using a [place]. Patient tolerated the procedure well and there were no immediate complications. Coding CPT Codes Resuscitation - Resuscitation: 15933 Endotracheal Intubation, emergency ([id number]) [facility] [place] Procedure Codes (Charges) Resuscitation Resuscitation: 55245 Endotracheal Intubation, emergency
--- NOTE | 2019-04-30 14:56 | Procedure Note ---
Procedure Note Date of Service April 30, 2019 CENTRAL LINE PROCEDURE NOTE: Procedure: Central Line Placement Provider: Judd Goodrich MD Indication: Central Drug Administration, Poor Venous Access, Multiple Lab Draws Necessary, etc. Anesthesia: 5 mL's lidocaine 1% Site: Left IJ Procedure was emergent and the patient was unable to sign due to medical condition. Verbal consent was obtained from the patient's son, Rajesh, on the phone. A time-out was completed verifying correct patient, procedure, site, positioning, and implants(s) or special equipment if applicable. Patients left neck was cleansed and draped in the typical sterile fashion using Chloraprep. The Internal Jugular Vein and Carotid Artery were identified using ultrasound. The superficial tissue was anesthetized using 4 mL of 1% lidocaine without epinephrine under direct visualization with the ultrasound. After adequate anesthetization was achieved, the Internal Jugular vein was cannulated under direct ultrasound guidance using an introducer needle on a syringe. Good venous blood return was maintained prior to removal of syringe from introducer needle. Using Seldinger Technique, a guide wire was advanced through the introducer needle without resistance. The introducer needle was removed and ultrasound images were obtained of the guide wire within the Internal Jugular Vein and saved to the patients medical record. A small incision was made in penetrating fashion at the guide wire insertion site utilizing an 11 blade scalpel. The dilator was advanced to the vessel without resistance. The dilator was exchanged for the triple lumen catheter which was advanced into the vessel without resistance. The guide wire was removed intact from the catheter without issue. Claves were placed on each catheter tip with confirmation of good blood flow from each lumen. Each port was easily flushed with sterile saline. The catheter was placed at 22 cm and sutured in place. BioPatch was applied to the catheter and a sterile Tegaderm dressing was applied over the catheter with careful attention to sterility. Patient tolerated procedure well. No immediate complications were met. Post procedure x-ray was completed, placement was appropriate and no pneumothorax was noted. Images obtained are saved for permanent record Coding CPT Codes Tubes, Drains, and Vasc Access - Tubes, Drains, and Vasc Access: [id number] Place catheter in vein superior or inferior vena cava ([id number]) Tubes, Drains, and Vasc Access - Tubes, Drains, and Vasc Access: [id number] Ultrasound Guidance For Vascular ([id number]) [facility] [place] Procedure Codes (Charges) Tubes, Drains, and Vasc Access Procedure 1: Tubes, Drains, and Vasc Access: [id number] Place catheter in vein superior or inferior vena cava Procedure 2: Tubes, Drains, and Vasc Access: [id number] Ultrasound Guidance For Vascular
[2019-04-30 15:12] LABS: iSTAT Allen Test Pass; iSTAT Art Bld Gas pCO2 Correct 50 mmHg (35-46); iSTAT Art Bld Gas pH Corrected 7.433 (7.35-7.45); iSTAT Arterial Blood Gas HCO3 33 meg/L (19-24); iSTAT Arterial Blood Gas pCO2 50 mmHg (35-46); iSTAT Arterial Blood Gas pH 7.43 (7.35-7.45); iSTAT Arterial Blood Gas pO2 251 mmHg (80-95); iSTAT Arterial Blood Gas pO2 C 251; iSTAT Carbon Dioxide 35 mmol/L (24-31); iSTAT FiO2 100 %; iSTAT Hematocrit 33 % (37-47); iSTAT Hemoglobin 11.2 g/dl (12.0-16.0); iSTAT Potassium 3.7 mmol/L (3.3-5.0); iSTAT Site L Radial; iSTAT Sodium 140 mmol/L (135-144)
[2019-04-30] MEDS ORDERED: fentaNYL citrate 100 MCG/2 ML VIAL IV PRN (15:21)
[2019-04-30] MEDS ORDERED: MIDAZOLAM HCL 1 MG/ML 2ML VIAL IV PRN (15:21)
[2019-04-30] MEDS ORDERED: STAT IV Infusion **Titration per Protocol STA (15:21)
[2019-04-30] MEDS ORDERED: ATOVAQUONE 750 MG/5 ML UDC PO SCH (15:30)
[2019-04-30] MEDS: fentaNYL DRIP 1,250 MCG/250 ML BAG IV SCH (15:43)
[2019-04-30] MEDS: MIDAZOLAM HCL 125 MG/250 ML BAG IV SCH (15:50)
--- NOTE | 2019-04-30 16:20 | Hospitalist Progress Note ---
Date of Service April 30, 2019 Assessment & Plan (1) Acute and chronic respiratory failure with hypoxia: Current intubated and sedated Unclear exact cause ?primarily unspecified lung inflammatory disease causing edema and alveolar hemorrhage while on anticoagulation vs. diastolic heart fa ilure causing pulmonary edema and subsequent alveolar hemorrhage while on anticoagulation. (2) Inflammation of lung: As above. High dose steroids started by pulmonology. Unclear exact etiology but vasculitis would appear to best fit these episodes although bronchial washing have been unremarkable. (3) Pulmonary alveolar hemorrhage: Holding Xarelto (4) Iron deficiency anemia: FOB negative. Possibly diet related as she reports reduced diet since October however with new diagnosis of alveolar hemorrhage this also could explain her significant iron deficiency Iron sats 3%. FOB negative. No acute Hgb drop to suggest ongoing large bleeding. Hemoglobin iron deficit (mg) = 84.2kg x (14 - 9.3) x (2.145) = 850 mg Will give total of 5 doses of 200mg elemental iron as Venofer. First dose 04/30. Defer further doses until she is more stable. (5) Hypervolemia: Pulmonary edema suspect secondary to her inflammatory lung disease. Lasix 40mg IV given in AM but further dosing limited by her current hypotension I&O's and daily weights. Na restricted diet. Daily BMP with potassium replacement as necessary Agree patient will need a lasix sliding scale on discharge. Appreciate continued fluid management with ICU. (6) Atrial fibrillation: Rate appropriate for current illness. Xarelto on hold due to alveolar hemorrhage as above Appreciate cardiology management (7) Peripheral edema: Improving (8) Hypertension: Holding anti-hypertensives due to hypotension. Possibly change to ACEi prior to discharge depending on resolution of leg edema. (9) Hypothyroid: Chronic. Stable - TSH 1.49 Patient alternates 75mcg and 50mcg dosing -- continue home schedule (10) Allergic rhinitis due to allergen: Continue home montelukast 10mg, fexofenadine 180mg (11) DVT prophylaxis: Xarelto on hold due to alveolar hemorrhage. Admission and Anticipated Discharge Date Admission Date: April 27, 2019 Continue PT/OT once extubated Subjective Tried to see patient in the morning but she was already taken down for bronchoscopy. Patient currently intubated and sedated when seen in afternoon. Unfortunately she did poorly trying to maintain saturations after bronchoscopy. Unable to tolerate BiPAP and failing high flow oxygen. Review of Systems Review of Systems: Unobtainable due to endotracheal tube and Unobtainable due to reduced consciousness Physical Exam Constitutional: well developed, + ill appearing and + mechanically ventilated; no acute distress Eyes: + anicteric sclerae; normal pupil size Neck: trachea midline Respiratory: + respiratory distress (on ventilator), + retractions and + uses accessory muscles; no labored breathing Auscultation: + rhonchi (b/l); no rales and no wheezes Cardiovascular: Rate/Rhythm: + tachycardic and + irregularly irregular Heart Sounds: no murmur Vessels: + JVD Extremities: + edema (1+ b/l LE) Gastrointestinal (Abdomen): Inspection/Auscultation: + abdomen distended and normal bowel sounds Percussion/Palpation: abdomen soft; abdomen nontender, no guarding and abdomen not rigid Skin: no rashes, warm and dry Neurologic: + not awake Psychiatric: Orientation: + not alert (sedated) Results & Data ([facility]) Vital Signs (Past 12 Hours) Vital Signs Temp Pulse Pulse Pulse Resp BP BP 04/30/19 15:42 131 H 32 H 04/30/19 14:33 104 H 108/74 04/30/19 14:30 107 H 04/30/19 14:20 107 H 04/30/19 14:17 99 H 112/62 04/30/19 14:10 107 H 04/30/19 14:03 114 H 111/69 04/30/19 14:01 104 H 04/30/19 14:00 110 H 101/65 04/30/19 13:53 110 H 23 04/30/19 13:50 103 H 73/45 L 04/30/19 13:48 97 H 78/48 L 04/30/19 13:40 106 H 04/30/19 13:32 112 H 125/64 04/30/19 13:30 113 H 23 04/30/19 13:26 108 H 12 102/63 04/30/19 13:20 119 H 23 126/85 04/30/19 13:19 153 H 27 H 136/97 04/30/19 13:10 122 H 39 H 04/30/19 13:02 116 H 37 H 117/77 04/30/19 13:00 111 H 34 H 02/19/20 12:50 139 H 38 H 04/30/19 12:48 152 H 29 H 119/97 04/30/19 12:41 124 H 35 H 04/30/19 12:30 124 H 122 H 31 H 04/30/19 12:20 131 H 37 H 04/30/19 12:15 124 H 31 H 04/30/19 12:02 117 H 27 H 132/69 04/30/19 12:00 106 H 28 H 04/30/19 11:47 100 H 25 H 137/74 04/30/19 11:45 102 H 27 H 04/30/19 11:36 107 H 28 H 04/30/19 11:32 109 H 27 H 120/70 04/30/19 11:30 103 H 26 H 04/30/19 11:17 108 H 29 H 129/86 04/30/19 11:15 105 H 29 H 04/30/19 11:08 106 H 33 H 04/30/19 11:02 97 H 29 H 138/84 04/30/19 11:00 112 H 24 04/30/19 10:45 100 H 27 H 04/30/19 10:44 37 C 102 H 24 129/86 04/30/19 10:33 93 H 27 H 04/30/19 10:32 103 H 28 H 121/69 04/30/19 10:30 107 H 25 H 04/30/19 10:28 04/30/19 09:45 108 H 22 118/63 04/30/19 09:20 101 H 24 04/30/19 09:15 99 H 24 04/30/19 09:10 92 H 24 04/30/19 09:05 108 H 24 04/30/19 09:00 106 H 20 04/30/19 08:55 110 H 22 04/30/19 08:50 123 H 20 04/30/19 08:45 109 H 24 04/30/19 08:40 130 H 22 04/30/19 08:35 117 H 22 04/30/19 08:30 119 H 26 H 04/30/19 08:25 110 H 26 H 04/30/19 08:20 101 H 22 04/30/19 08:15 110 H 22 04/30/19 08:10 108 H 24 04/30/19 07:45 128 H 04/30/19 07:30 111 H 04/30/19 07:15 138 H 04/30/19 07:06 94 H 18 04/30/19 07:01 36.5 C 94 H 18 132/83 04/30/19 07:00 96 H 04/30/19 06:45 96 H 04/30/19 06:30 98 H 04/30/19 06:15 112 H 04/30/19 06:00 101 H 04/30/19 05:45 95 H 04/30/19 05:30 105 H 04/30/19 05:15 94 H 04/30/19 05:00 94 H 04/30/19 04:45 100 H 04/30/19 04:30 96 H BP Pulse Ox 04/30/19 15:42 90 04/30/19 14:33 100 04/30/19 14:30 100 04/30/19 14:20 100 04/30/19 14:17 100 04/30/19 14:10 100 04/30/19 14:03 99 04/30/19 14:01 100 04/30/19 14:00 100 04/30/19 13:53 98 04/30/19 13:50 100 04/30/19 13:48 98 04/30/19 13:40 100 04/30/19 13:32 98 04/30/19 13:30 99 04/30/19 13:26 98 04/30/19 13:20 62 L 04/30/19 13:19 81 L 04/30/19 13:10 96 04/30/19 13:02 93 04/30/19 13:00 94 04/30/19 12:50 95 04/30/19 12:48 04/30/19 12:41 90 04/30/19 12:30 92 04/30/19 12:20 93 04/30/19 12:15 91 04/30/19 12:02 98 04/30/19 12:00 98 04/30/19 11:47 98 04/30/19 11:45 99 04/30/19 11:36 98 04/30/19 11:32 100 04/30/19 11:30 100 04/30/19 11:17 98 04/30/19 11:15 100 04/30/19 11:08 93 04/30/19 11:02 86 L 04/30/19 11:00 97 04/30/19 10:45 80 L 04/30/19 10:44 96 04/30/19 10:33 88 L 04/30/19 10:32 04/30/19 10:30 89 L 04/30/19 10:28 85 L 04/30/19 09:45 98 04/30/19 09:20 112/64 92 04/30/19 09:15 114/59 L 92 04/30/19 09:10 106/77 93 04/30/19 09:05 117/55 L 93 04/30/19 09:00 107/66 94 04/30/19 08:55 121/67 94 04/30/19 08:50 115/65 93 04/30/19 08:45 113/73 93 04/30/19 08:40 130/86 93 04/30/19 08:35 116/82 93 04/30/19 08:30 132/100 92 04/30/19 08:25 120/94 99 04/30/19 08:20 126/59 L 99 04/30/19 08:15 141/72 H 97 04/30/19 08:10 151/82 H 92 04/30/19 07:45 04/30/19 07:30 04/30/19 07:15 04/30/19 07:06 88 L 04/30/19 07:01 83 L 04/30/19 07:00 04/30/19 06:45 04/30/19 06:30 04/30/19 06:15 04/30/19 06:00 04/30/19 05:45 04/30/19 05:30 04/30/19 05:15 04/30/19 05:00 04/30/19 04:45 04/30/19 04:30 PG Care Time/CCT Total # of Minutes Spent Total Time Spent with Patient: Total time spent is greater than 50% in coordination of care (as documented) at patient's floor/unit and/or counseling patient: Coding Level of Care Code 51901 Subseq Hosp Care Lvl 3 Diagnoses Acute and chronic respiratory failure with hypoxia J96.21 Inflammation of lung J18.9 Pulmonary alveolar hemorrhage R04.89 Iron deficiency anemia D50.9 Iron deficiency anemia type: unspecified iron deficiency Hypervolemia E87.79 Hypervolemia type: other Atrial fibrillation I48.11 Atrial fibrillation type: longstanding persistent Peripheral edema R60.9 Hypertension I10 Hypertension type: essential hypertension Hypothyroid E03.9 Hypothyroidism type: unspecified Allergic rhinitis due to allergen J30.9 Allergic rhinitis seasonality: unspecified Allergic rhinitis trigger: unspecified DVT prophylaxis Z29.9 (1) Atrial fibrillation Atrial fibrillation type: longstanding persistent Qualified Code(s): I48.11 - Longstanding persistent atrial fibrillation (2) Hypothyroid Hypothyroidism type: unspecified Qualified Code(s): E03.9 - Hypothyroidism, unspecified (3) Iron deficiency anemia Iron deficiency anemia type: unspecified iron deficiency Qualified Code(s): D50.9 - Iron deficiency anemia, unspecified (4) Allergic rhinitis due to allergen Allergic rhinitis seasonality: unspecified Allergic rhinitis trigger: unspecified Qualified Code(s): J30.9 - Allergic rhinitis, unspecified (5) Hypertension Hypertension type: essential hypertension Qualified Code(s): I10 - Essential (primary) hypertension (6) Hypervolemia Hypervolemia type: other Qualified Code(s): E87.79 - Other fluid overload
[2019-04-30] MEDS: PHENYLEPHRINE HCL 20 MG in DEXTROSE 5% 500 ML IV SCH (16:58)
--- NOTE | 2019-04-30 16:59 | Procedure Note ---
Procedure Note Date of Service April 30, 2019 ARTERIAL LINE PROCEDURE NOTE: Procedure: Arterial Line Placement Provider: Judd Goodrich MD Indication: Monitoring on Pressors Patient is intubated sedated in the ICU. She is unable to provide consent. No family immediately available A time-out was completed verifying correct patient, procedure, site, positioning, and implant(s) or special equipment if applicable. Allens test was performed to ensure adequate perfusion. Patients right wrist was prepped and draped in the usual sterile fashion. Under sterile aseptic technique an 18- gauge catheter was placed in the right radial artery without difficulty. Pulsatile blood flow was returned and arterial waveform was confirmed on transduction. Sterile dressing was applied and the catheter secured in place. Blood Loss: Minimal Complications: None Coding CPT Codes Tubes, Drains, and Vasc Access - Tubes, Drains, and Vasc Access: [id number] Place Catheter In Artery ([id number]) [facility] [place] Procedure Codes (Charges) Tubes, Drains, and Vasc Access Procedure 1: Tubes, Drains, and Vasc Access: [id number] Place Catheter In Artery
[2019-04-30 17:18] LABS: Appearance Urine Clear (Clear); Bacteria Urine Automated Negative (Negative); Bilirubin Urine Negative (Negative); Blood Urine 1+ (Negative); Cast Urine Automated 0 /lpf (0-5); Color Urine Yellow; Glucose Urine UA Negative (Negative); Ketones Urine Negative (Negative); Leukocyte Esterase Urine Negative (Negative); Nitrite Urine Negative (Negative); Protein Urine Negative (Negative); Urobilinogen Urine Negative (Negative); pH Urine 8.5 (4.5-7.5)
[2019-04-30] MEDS: POTASSIUM CHLORIDE 20 MEQ/15 ML UDC NG SCH (20:16)
[2019-04-30] MEDS: DAPSONE 25 MG TAB PO SCH (20:16)
[2019-05-01] MEDS ORDERED: GLUCAGON FOR INJ 1 MG VIAL IM PRN (00:30)
[2019-05-01] MEDS ORDERED: GLUCOSE 40% GEL 15 GM TUBE PO PRN (00:30)
[2019-05-01] MEDS ORDERED: NovoLIN-R BOLUS FROM BAG IV ONE (00:30)
[2019-05-01] MEDS ORDERED: GLUCOSE 10 TABS/TUBE PO PRN (00:30)
[2019-05-01] MEDS ORDERED: DEXTROSE 50% 50 ML SYRINGE IV PRN (00:30)
[2019-05-01] MEDS ORDERED: CARBOHYDRATES FOR HYPOGLYCEMIA PO PRN (00:30)
[2019-05-01] MEDS: INSULIN REGULAR 250 UNITS in SODIUM CHLORIDE 0.9% 247.5 ML IV SCH (00:45)
[2019-05-01] MEDS: PHENYLEPHRINE HCL 20 MG in DEXTROSE 5% 500 ML IV SCH ×4 (01:07→19:50)
[2019-05-01] MEDS: methylPREDNISolone 125 MG in SYRINGE 0 ML IV SCH ×4 (05:30→23:46)
[2019-05-01] MEDS: LEVOTHYROXINE SODIUM 75 MCG TABLET NG SCH (05:30)
[2019-05-01 05:56] LABS: BUN Creatinine Ratio 41.2 (10-20); Calcium 8.4 mg/dl (8.5-10.1); Creatinine Clr Calc Pharmacy 53.9 ml/min; Est GFR (African American) 71.9; Est GFR (Non-African American) 62.1; Potassium 4.9 mmol/L (3.5-5.1)
[2019-05-01 06:31] LABS: Oxygen Saturation VBG 67.2 %; pH VBG 7.43 (7.36-7.41)
[2019-05-01] MEDS: BUDESONIDE 0.5 MG/2 ML VIAL (PULMICORT) INH SCH ×2 (07:10→20:29)
--- NOTE | 2019-05-01 07:22 | XRay Report ---
XR chest 1V portable CLINICAL HISTORY: 78 years-old Female presenting with intubated. TECHNIQUE: Portable upright AP view of the chest was obtained. COMPARISON: 04/30/2019. FINDINGS: Endotracheal tube terminates in the midthoracic trachea 5.5 cm from the deyanira. Left internal jugular central venous catheter terminates in the mid SVC. A nasogastric tube may be in place though the tub e appears to deviate off the midline at the level of the mid thoracic region coursing to the gastroes ophageal junction more inferiorly. This may be due to tortuosity of the esophagus or the presence of a hiatal hernia. Numerous overlying external leads to grating evaluation. Atherosclerosis of the aort ic arch. Moderate enlargement of the cardiopericardial silhouette. Diffuse added density of the lungs with interstitial prominence. Interval decrease in central and mid lung predominant dense patchy opa cities. There remains a dense opacity with obscuration of the left hemidiaphragm at the left lung bas e. Possible underlying left pleural effusion. No pneumothorax. Degenerative changes of the thoracic s pine. Upper abdomen normal. IMPRESSION: 1. Interval decrease in central predominant infiltrates may suggest decreasing pulmonary edema or re solving multifocal pneumonia or diffuse alveolar damage. Some degree of infiltrates remains. 2. Persistent extensive atelectasis at the left lung base. Left pleural effusion not excluded. 3. Cardiomegaly. 4. Appropriately positioned lines and tubes. ACT 112: Negative or not required by law. Electronically signed by: Andres Mackey M.D. 05/01/2019 7:21 AM
[2019-05-01] MEDS: INSULIN ASPART 100 UNITS/ML 3 ML PEN SC SCH ×4 (07:50→21:23)
[2019-05-01] MEDS: FUROSEMIDE 40 MG in SYRINGE 0 ML IV SCH (07:51)
[2019-05-01] MEDS: DAPSONE 25 MG TAB PO SCH ×2 (07:52→21:23)
[2019-05-01] MEDS: MAGNESIUM OXIDE 400 MG TAB NG SCH (07:52)
[2019-05-01] MEDS: AMLODIPINE BESYLATE 5 MG TAB PO SCH (08:02)
[2019-05-01] MEDS: DICLOFENAC SOD 1% GEL 100 GM TUBE EXT SCH ×4 (08:04→21:23)
[2019-05-01] MEDS: LANSOPRAZOLE 30 MG SOLTAB OG SCH (08:04)
[2019-05-01] MEDS: POTASSIUM CHLORIDE 20 MEQ/15 ML UDC NG SCH (08:07)
[2019-05-01 10:56] LABS: INR 1.6 (0.9-1.1); Prothrombin Time 16.1 Seconds (9.0-12.0)
--- NOTE | 2019-05-01 11:31 | Critical Care Progress Note ---
Date of Service May 01, 2019 Assessment & Plan (1) Acute and chronic respiratory failure with hypoxia: Impression: 78-year-old female with hypoxemic respiratory failure and d iffuse pulmonary infiltrates with scant hemoptysis. Bronchoscopy with BAL performed 04/30/2019 was consistent with alveolar hemorrhage which again may be secondary to anticoagulation in conjunction with elevated diastolic filling pressures or primary pulmonary vasculitis although previous serological evaluation was negative. She was intubated 04/30/2023 hypoxemic respiratory failure. 24-hour events: Status post bronchoscopy with BAL showing evidence of alveolar hemorrhage. Intubated due to refractory hypoxemic respiratory failure. Has had issues with atrial fibrillation with rapid ventricular response and intermittently has required administration of Robert-Synephrine to maintain pressures. Recommendations: 1. Alveolar hemorrhage: Holding all anticoagulation at this point time and continuing with high-dose steroids. Await repeat serological evaluation. Urinalysis did show persistent evidence of hematuria although the sample was a [place] catheterized specimen. Suspect her leukocytosis is related to concomitant steroid administration. 2. Hypoxemic respiratory failure: Continue ARDS low stretch ventilatory protocol. FiO2 acceptable. We will start to wean PEEP as tolerated. 3. History of asthma, I do not believe that the current infiltrates are related to asthma. She does not appear bronchospastic currently. Her prior PFTs (March 2019) suggest mixed obstructive restrictive physiology 4. Atrial fibrillation with rapid ventricular response: We will pursue a rate control strategy as were unlikely to achieve normal sinus rhythm. Will start beta-pina when she can stay off of Robert-Synephrine. Anticoagulation being held given pulmonary hemorrhage. 5. Anemia: Counts are currently stable. It certainly possible that low-grade pulmonary hemorrhage could be contributing to her overall anemia. Holding DVT prophylaxis given bleeding issues currently but may need to restart within the next 24 hours. 6. Hypertension: Hold amlodipine currently. May do better with beta-pina. 7. Nutrition: Nutritional consult for initiation of enteric tube feeding. Advance to goal as tolerated. Patient remains critically ill with significant possibility of clinical deterioration. A total of 47 minutes critical care time spent evaluation management and stabilization of this patient including discussion on multidisc iplinary rounds. (2) Acute diastolic CHF (congestive heart failure): (3) Abnormal CT scan of lung: Review of Systems Review of Systems: Unobtainable due to endotracheal tube Physical Exam Constitutional: + mechanically ventilated Neck: trachea midline, no thyromegaly Respiratory: Few crackles bilaterally. No wheezing Cardiovascular: Rate/Rhythm: + irregularly irregular Heart Sounds: normal S1 and normal S2; no murmur Gastrointestinal (Abdomen): normal bowel sounds, soft, nontender, no hepatosplenomegaly Musculoskeletal: Extremities: extremities normal to inspection Skin: Few areas of bruising noted Neurologic: Intubated and sedated Results & Data ([facility]) Vital Signs (Past 12 Hours) Vital Signs Temp Pulse Resp BP Pulse Ox 05/01/19 09:00 76 109/67 95 05/01/19 08:00 37 C 84 101/59 L 92 05/01/19 07:30 76 96 05/01/19 07:10 79 24 94 05/01/19 07:00 82 94 05/01/19 06:00 77 93 05/01/19 05:56 78 22 94 05/01/19 05:51 81 102/64 92 05/01/19 05:45 89 93 05/01/19 05:30 79 94 05/01/19 05:15 75 94 05/01/19 05:00 76 94 05/01/19 04:51 80 94/54 L 94 05/01/19 04:45 72 94 05/01/19 04:43 36.4 C L 05/01/19 04:30 81 94 05/01/19 04:15 84 93 05/01/19 04:00 90 93 20 03:51 77 98/62 L 95 20 03:45 73 95 20 03:30 76 96 20 03:15 75 95 20 03:00 74 95 20 02:51 75 102/55 L 95 20 02:45 77 95 20 02:30 73 95 2020 02:15 81 95 20 02:00 76 95 20 01:55 84 23 96 20 01:51 75 105/63 95 2020 01:45 79 96 20 01:30 78 95 20 01:15 91 H 95 20 01:00 78 95 20 00:51 74 105/69 94 2020 00:45 81 95 20/20 00:30 82 95 02/20/20 00:15 75 95 05/01/19 00:00 79 95 04/30/19 23:58 36.7 C 74 04/30/19 23:51 82 102/61 95 04/30/19 23:45 82 94 04/30/19 23:30 79 22 95 Laboratory Results 04/30/19 05:36 05/01/19 04:14 BAL differential: 32% neutrophils, 20% lymphocytes, 48% monocytes macrophages, 0% eosinophils Gram stain/culture BAL: Moderate WBCs with few epithelial cells and few gram-p ositive cocci. No significant growth to date Urinalysis again showed 1+ blood with 10-30 red blood cells per high-power field. Serologies currently pending Diagnostic Findings Chest x-ray from today was independently reviewed and compared to prior films. There has been significant clearing of the bilateral hazy airspace opacities but there are some residual infiltrates left. No significant pleural effusions. Coding Level of Care Code Critical Care 1st 30-74 mins Diagnoses Acute and chronic respiratory failure with hypoxia J96.21 Acute diastolic CHF (congestive heart failure) I50.[address] scan of lung R91.8 Time Spent (min) 47
[2019-05-01] MEDS ORDERED: PHARMACY GLYCEMIC MGMT CONSULT PRN (13:04)
--- NOTE | 2019-05-01 13:17 | Pharmacy Report ---
Pharmacy Glycemic Short Note 2 - Date of Service May 01, 2019 - Glycemic Short BSG Results (Last 24 hours): 04/30/19 05/01/19 05/01/19 23:27 01:49 02:49 Glucose POC Glucose 271 H 198 H 193 H 05/01/19 05/01/19 05/01/19 03:54 04:14 05:24 Glucose 162 H POC Glucose 140 H 159 H 05/01/19 05/01/19 05/01/19 06:17 07:24 09:21 Glucose POC Glucose 163 H 158 H 179 H 05/01/19 11:12 Glucose POC Glucose 169 H OUTPATIENT ANTIDIABETIC REGIMEN: * N/A, no prior dx of DM however last A1c 5.9 01/2019 consistent with underlying insulin resistance ASSESSMENT: * Admitted to ICU for acute on chronic resp failure, requiring intubation for hypoxemia, alveolar hemorrhage * Pt remains intubated, sedated, receiving high dose IV steroids, as well as pressor support in the form of phenylephrine * Pharmacy auto-consulted consulted per "ICU Protocol for Hyperglycemia" * IV insulin infusion initiated overnight for BSGs in upper 200s * IV insulin infusion is best suited to achieve glycemic goals at this time given current stressors, less reliable SQ insulin absorption while on pressors and with the initiation of continuous tube feeds that will be titrated upwards PLAN FOR INPATIENT GLYCEMIC CONTROL: * monitor BSGs with iSTAT (rather than Accu-Chek) * IV insulin infusion per protocol, goal range 110-180 * Bolus insulin * Nutritional / Prandial insulin: none at this time - will allow insulin infusion to titrate upwards as needed to cover carbs delivered in TFs
[2019-05-01 14:22] LABS: Anti Nuclear Antibody Screen NEGATIVE (NEGATIVE)
[2019-05-01] MEDS: IMPACT LIQD 1.0 CAL 1,000 ML BAG OG SCH (16:12)
--- NOTE | 2019-05-01 17:26 | Cardiology Progress Note ---
Date of Service May 01, 2019 Assessment & Plan (1) Hypervolemia: Mrs. Malone is an 78 year old female with a history of Hypertension, Dyslipidemia, Permanent Atrial Fibrillation (rates currently 90's to low 100's), Mild Concentric LVH, Panic/Somatization Disorder, Hypothyroidism, Idiopathic Thrombocytopenic Purpura, Positive ARTEMIO, Asthma, Multiple Allergies, Chronic Venous Insufficiency, Anemia, history of Capillaritis, Elevated ESR, Recurrent Pneumonic Infiltrates / Processes, and now a Pulmonary Hemorrhage -- who was admitted on 04/27/2019 with Acute Diastolic CHF and Hypervolemia (which was likely related to steroid induced fluid retention). Patient has had a good diuretic response and has a negative fluid balance of > 10 liters since being admitted. Recommend the following: -- Continue IV Lasix 40 mg daily until euvolemic / return to "dry weight". -- Continue Amlodipine 2.5 mg daily. -- Anticoagulation is being held due pulmonary hemorrhage. -- Supplement Potassium as needed. -- Monitor daily I&O's and body weights. -- Monitor renal function closely. -- 2 Gram low sodium diet. -- Patient will likely need ongoing corticosteroid therapy upon discharge from the hospital -- would recommend starting oral diuretic therapy to be taken according to her body weights / sliding scale dosing. If patient has persistent respiratory failure after achieving a euvolemic state, or if she doesn't otherwise show progress -- consider right heart catheterization. Cardiology will sign off of the case for the time being. Please contact us if we can be of further service. (2) Acute diastolic CHF (congestive heart failure): -- As outlined above. (3) Acute and chronic respiratory failure with hypoxia: -- As per Pulmonology and Hospitalist Service. (4) Atrial fibrillation: Permanent Atrial Fibrillation: -- Holding anticoagulation for now -- Resume Xarelto 20 mg daily when okay with Pulmonology. -- Ventricular response rates are improved today. (5) Pulmonary alveolar hemorrhage: -- Pulmonology input is greatly appreciated. Admission and Anticipated Discharge Date Admission Date: April 27, 2019 Supervising Physician Co-Signing Physician Notes CARDIOLOGY ATTENDING ADDENDUM (Dr. Cantu): Patient seen, interviewed, and examined. Agree with above assessment and recommendations by Jamie Gomez PA-C. Agree with hold/discontinue amlodipine given relative hypotension. Continue aggressive diuresis in the absence of contraindication (recurrent hypotension, azotemia, etc). If persistent infiltrates/hypoxic respiratory failure after aggressive diuresis, consider right heart catheterization to assess filling pressures. Case discussed with intensive care team (Dr. Goodrich, David Cain PA-C) Xavi Cantu MD Subjective Mrs. Malone is currently being seen in the ICU. Patient underwent bronchoscopy yesterday morning and was noted to have pulmonary hemorrhage. Patient was desaturating yesterday, his ultimately was intubated. She is still intubated. She continues to have a negative fluid balance. She remains in atrial fibrillation but her ventricular response rate has improved today - HR is in the 70s to 90s. Physical Exam Physical Exam: GENERAL: Patient currently intubated and on the ventilator. HEENT: Head is atraumatic, normocephalic. EOM's intact. Facies symmetric. No perioral cyanosis. NECK: JVP remains elevated. Carotid upstrokes are + 2 bilaterally. No bruits are noted. CHEST/LUNGS: Breath sounds are present bilaterally with scattered crackles. CVS: S1 and S2 are irregularly irregular at 88 bpm. No obvious murmurs, gallops, or rubs. PMI is nondisplaced. No abdominal aortic or renal bruits. ABDOMINAL EXAM: Bowel sounds are present. No masses, organomegaly, or tenderness. EXTREMITIES: No clubbing or cyanosis. No edema. Intact posterior tibial and radial pulses bilaterally. Telemetry: -- Atrial fibrillation with rates ranging from 75 to 95 bpm this morning. Results & Data ([facility]) Vital Signs (Past 12 Hours) Vital Signs Temp Pulse Resp BP Pulse Ox 05/01/19 16:51 80 115/68 94 05/01/19 15:51 36.9 C 77 118/60 95 05/01/19 14:51 83 118/75 95 05/01/19 14:40 80 22 95 05/01/19 13:51 79 113/73 95 05/01/19 12:51 77 127/71 95 05/01/19 12:00 36.9 C 05/01/19 11:51 82 117/77 95 05/01/19 11:22 78 24 95 05/01/19 10:51 74 112/65 95 05/01/19 09:51 75 110/69 96 05/01/19 09:00 76 109/67 95 05/01/19 08:00 37 C 84 101/59 L 92 05/01/19 07:30 76 96 05/01/19 07:10 79 24 94 05/01/19 07:00 82 94 05/01/19 06:00 77 93 05/01/19 05:56 78 22 94 05/01/19 05:51 81 102/64 92 05/01/19 05:45 89 93 05/01/19 05:30 79 94 05/01/19 05:15 75 94 PG Care Time/CCT Total # of Minutes Spent Total Time Spent with Patient: Total time spent is greater than 50% in coordination of care (as documented) at patient's floor/unit and/or counseling patient: Coding Level of Care Code 09490 Subseq Hosp Care Lvl 3 Diagnoses Hypervolemia E87.79 Hypervolemia type: other Acute diastolic CHF (congestive heart failure) I50.31 Acute and chronic respiratory failure with hypoxia J96.21 Atrial fibrillation I48.11 Atrial fibrillation type: longstanding persistent Pulmonary alveolar hemorrhage R04.89 (1) Atrial fibrillation Atrial fibrillation type: longstanding persistent Qualified Code(s): I48.11 - Longstanding persistent atrial fibrillation (2) Hypervolemia Hypervolemia type: other Qualified Code(s): E87.79 - Other fluid overload
[2019-05-01] MEDS: fentaNYL DRIP 1,250 MCG/250 ML BAG IV SCH (18:02)
--- NOTE | 2019-05-01 18:50 | Hospitalist Progress Note ---
Date of Service May 01, 2019 Assessment & Plan (1) Acute and chronic respiratory failure with hypoxia: Current intubated and sedated Unclear exact cause ?primarily unspecified lung inflammatory disease causing edema and alveolar hemorrhage while on anticoagulation vs. diastolic heart fa ilure causing pulmonary edema and subsequent alveolar hemorrhage while on anticoagulation. NG tube feeds and electrolyte replacement as per ICU management (2) Inflammation of lung: As above. High dose steroids started by ICU. Solu-medrol 125mg q6h. Unclear exact etiology but vasculitis would appear to best fit these episodes although bronchial washing have been unremarkable. (3) Pulmonary alveolar hemorrhage: Holding Xarelto (4) Iron deficiency anemia: FOB negative. Possibly diet related as she reports reduced diet since October however with new diagnosis of alveolar hemorrhage this also could explain her significant iron deficiency Iron sats 3%. FOB negative. No acute Hgb drop to suggest ongoing large bleeding. Hemoglobin iron deficit (mg) = 84.2kg x (14 - 9.3) x (2.145) = 850 mg Will give total of 5 doses of 200mg elemental iron as Venofer. First dose 04/30. Defer further doses until she is more stable. (5) Hypervolemia: Appreciate continued fluid management with ICU. Lasix 40mg IV given this morning. (6) Atrial fibrillation: Rate appropriate for current illness. Xarelto on hold due to alveolar hemorrhage as above Appreciate cardiology management (7) Peripheral edema: Improving (8) Hypertension: Holding anti-hypertensives due to hypotension. Possibly change to ACEi prior to discharge depending on resolution of leg edema. (9) Hypothyroid: Chronic. Stable - TSH 1.49 Patient alternates 75mcg and 50mcg dosing -- continue home schedule (10) Allergic rhinitis due to allergen: Continue home montelukast 10mg, fexofenadine 180mg (11) Steroid-induced hyperglycemia: On insulin drip as managed by ICU. HbA1C 5.9 (12) DVT prophylaxis: Xarelto on hold due to alveolar hemorrhage. Admission and Anticipated Discharge Date Admission Date: April 27, 2019 Unknown anticipated discharge at this time. Prognosis guarded. Subjective Patient sedated and ventilated. Unable to give history. Review of Systems Review of Systems: Unobtainable due to endotracheal tube and Unobtainable due to reduced consciousness Physical Exam Constitutional: + ill appearing and + mechanically ventilated; no acute distress Respiratory: normal respiratory effort Auscultation: + rhonchi (b/l); no rales and no wheezes Cardiovascular: Rate/Rhythm: + tachycardic and + irregularly irregular Heart Sounds: no murmur Vessels: no JVD Extremities: + edema (1+ b/l LE, wrinkles) Gastrointestinal (Abdomen): Inspection/Auscultation: + abdomen distended and normal bowel sounds Percussion/Palpation: abdomen soft; abdomen nontender, no guarding and abdomen not rigid Skin: no rashes, warm and dry Neurologic: + not awake Unable to perform neuro exam due to sedation Psychiatric: Orientation: + not alert (sedated) Results & Data ([facility]) Vital Signs (Past 12 Hours) Vital Signs Temp Pulse Resp BP Pulse Ox 05/01/19 17:51 87 100/56 L 93 05/01/19 16:51 80 115/68 94 05/01/19 15:51 36.9 C 77 118/60 95 05/01/19 14:51 83 118/75 95 05/01/19 14:40 80 22 95 05/01/19 13:51 79 113/73 95 05/01/19 12:51 77 127/71 95 05/01/19 12:00 36.9 C 05/01/19 11:51 82 117/77 95 05/01/19 11:22 78 24 95 05/01/19 10:51 74 112/65 95 05/01/19 09:51 75 110/69 96 05/01/19 09:00 76 109/67 95 05/01/19 08:00 37 C 84 101/59 L 92 05/01/19 07:30 76 96 05/01/19 07:10 79 24 94 05/01/19 07:00 82 94 PG Care Time/CCT Total # of Minutes Spent Total Time Spent with Patient: Total time spent is greater than 50% in coordination of care (as documented) at patient's floor/unit and/or counseling patient: Coding Level of Care Code 54113 Subseq Hosp Care Lvl 3 Diagnoses Acute and chronic respiratory failure with hypoxia J96.21 Inflammation of lung J18.9 Pulmonary alveolar hemorrhage R04.89 Iron deficiency anemia D50.9 Iron deficiency anemia type: unspecified iron deficiency Hypervolemia E87.79 Hypervolemia type: other Atrial fibrillation I48.11 Atrial fibrillation type: longstanding persistent Peripheral edema R60.9 Hypertension I10 Hypertension type: essential hypertension Hypothyroid E03.9 Hypothyroidism type: unspecified Allergic rhinitis due to allergen J30.9 Allergic rhinitis seasonality: unspecified Allergic rhinitis trigger: unspecified Steroid-induced hyperglycemia R73.9; T38.0X5A DVT prophylaxis Z29.9 (1) Atrial fibrillation Atrial fibrillation type: longstanding persistent Qualified Code(s): I48.11 - Longstanding persistent atrial fibrillation (2) Hypothyroid Hypothyroidism type: unspecified Qualified Code(s): E03.9 - Hypothyroidism, unspecified (3) Iron deficiency anemia Iron deficiency anemia type: unspecified iron deficiency Qualified Code(s): D50.9 - Iron deficiency anemia, unspecified (4) Allergic rhinitis due to allergen Allergic rhinitis seasonality: unspecified Allergic rhinitis trigger: unspecified Qualified Code(s): J30.9 - Allergic rhinitis, unspecified (5) Hypertension Hypertension type: essential hypertension Qualified Code(s): I10 - Essential (primary) hypertension (6) Hypervolemia Hypervolemia type: other Qualified Code(s): E87.79 - Other fluid overload
--- NOTE | 2019-05-01 18:51 | Cardiology Progress Note ---
Date of Service May 01, 2019 Assessment & Plan Admission and Anticipated Discharge Date Admission Date: April 27, 2019 Results & Data ([facility]) Vital Signs (Past 12 Hours) Vital Signs Temp Pulse Resp BP Pulse Ox 05/01/19 09:00 76 109/67 95 05/01/19 08:00 98.6 F 84 101/59 L 92 05/01/19 07:30 76 96 05/01/19 07:10 79 24 94 05/01/19 07:00 82 94 05/01/19 06:00 77 93 05/01/19 05:56 78 22 94 05/01/19 05:51 81 102/64 92 05/01/19 05:45 89 93 05/01/19 05:30 79 94 05/01/19 05:15 75 94 05/01/19 05:00 76 94 05/01/19 04:51 80 94/54 L 94 05/01/19 04:45 72 94 05/01/19 04:43 97.5 F L 05/01/19 04:30 81 94 05/01/19 04:15 84 93 05/01/19 04:00 90 93 05/01/19 03:51 77 98/62 L 95 05/01/19 03:45 73 95 05/01/19 03:30 76 96 05/01/19 03:15 75 95 05/01/19 03:00 74 95 20 02:51 75 102/55 L 95 05/01/19 02:45 77 95 05/01/19 02:30 73 95 05/01/19 02:15 81 95 05/01/19 02:00 76 95 05/01/19 01:55 84 23 96 20 01:51 75 105/63 95 20 01:45 79 96 20 01:30 78 95 20 01:15 91 H 95 20 01:00 78 95 20 00:51 74 105/69 94 022020 00:45 81 95 20 00:30 82 95 20 00:15 75 95 0220 00:00 79 95 0220 23:58 98.1 F 74 0220 23:51 82 102/61 95 02/19/20 23:45 82 94 04/30/19 23:30 79 22 95 04/30/19 23:15 80 95 04/30/19 23:00 69 96 04/30/19 22:51 78 123/79 96 04/30/19 22:45 70 96 04/30/19 22:30 72 96 04/30/19 22:15 79 22 96 04/30/19 22:00 70 96 04/30/19 21:51 73 108/68 96 04/30/19 21:45 76 97 PG Care Time/CCT Total # of Minutes Spent Total Time Spent with Patient: Total time spent is greater than 50% in coordination of care (as documented) at patient's floor/unit and/or counseling patient: Coding
[2019-05-02] MEDS: INSULIN REGULAR 250 UNITS in SODIUM CHLORIDE 0.9% 247.5 ML IV SCH (01:23)
[2019-05-02 04:38] LABS: Hematocrit (blood only) 31.3 % (37-47); Hemoglobin 9.2 g/dL (12.0-16.0); Mean Corpuscular Hemoglobin 24.1 pg (25-34); Mean Corpuscular Hgb Conc 29.4 g/dL (32-36); Mean Corpuscular Volume 82.2 fL (80-100); Platelet Count 226 K/uL (130-400); RDW Coefficient of Variation 16.4 % (11.5-14.5); RDW Standard Deviation 49.3 fL (36.4-46.3); Red Blood Count 3.81 M/uL (4.2-5.4); White Blood Count 22.08 K/uL (4.8-10.8)
[2019-05-02 04:40] LABS: Allen Test Pos (Pos); Base Excess ABG 6.4 mEq/L (-9-1.8); HCO3 ABG 31 mmol/L (19-24); PCO2 ABG 43 mmHg (35-46); PO2 ABG 85 mmHg (80-95); pH ABG 7.47 (7.35-7.45)
[2019-05-02 04:49] LABS: INR 1.5 (0.9-1.1); Prothrombin Time 15.3 Seconds (9.0-12.0)
[2019-05-02 04:57] LABS: BUN Creatinine Ratio 52.3 (10-20); Calcium 8.4 mg/dl (8.5-10.1); Creatinine Clr Calc Pharmacy 59.7 ml/min; Est GFR (African American) 80.7; Est GFR (Non-African American) 69.6; Magnesium 2.2 mg/dl (1.8-2.4); Phosphorus 3.9 mg/dl (2.5-4.9); Potassium 4.5 mmol/L (3.5-5.1)
[2019-05-02 04:59] LABS: Basophils # (auto) 0.01 K/uL (0-0.2); Hypochromasia Present; Immature Granulocytes # (auto) 0.06 K/uL (0.00-0.02); Immature Granulocytes % (auto) 0.3 %; Lymphocytes # (auto) 0.52 K/uL (1.2-3.4); Lymphocytes % (auto) 2.4 %; Monocytes # (auto) 0.73 K/uL (0.11-0.59); Monocytes % (auto) 3.3 %; Neutrophils # (auto) 20.76 K/uL (1.4-6.5)
[2019-05-02] MEDS: LEVOTHYROXINE SODIUM 50 MCG TABLET NG SCH (05:37)
[2019-05-02] MEDS: methylPREDNISolone 125 MG in SYRINGE 0 ML IV SCH ×3 (05:37→17:26)
[2019-05-02] MEDS ORDERED: LEVOTHYROXINE SODIUM 75 MCG TABLET NG SCH (06:30)
[2019-05-02] MEDS: fentaNYL DRIP 1,250 MCG/250 ML BAG IV SCH (07:02)
[2019-05-02] MEDS: MIDAZOLAM HCL 125 MG/250 ML BAG IV SCH (07:03)
--- NOTE | 2019-05-02 07:08 | XRay Report ---
XR chest 1V portable CLINICAL HISTORY: 78 years-old Female presenting with f/u. TECHNIQUE: Portable upright AP view of the chest was obtained. COMPARISON: 05/01/2019. FINDINGS: Endotracheal tube terminates in the midthoracic trachea over 3 cm from the deyanira. Left internal jugu lar central venous catheter terminates in the lower SVC. Nasogastric tube descends below the diaphrag m terminating in the stomach, sidehole not visualized. Numerous external overlying leads also evident degrading image quality. Atherosclerosis of the aortic arch. Cardiac silhouette moderately enlarged. Pulmonary vascular and in terstitial prominence persists. Stable appearance of the patchy bilateral dense pulmonary opacities. Stable appearance of the underlying left pleural effusion and dense left basilar opacity. No pneumoth orax. Extensive degenerative changes and scoliosis of the thoracic spine. Surgical clips project over the right axilla. Upper abdomen normal. IMPRESSION: 1. Overall stable appearance of the patchy bilateral pulmonary infiltrates. 2. Stable appearance of the left pleural effusion and extensive left basilar atelectasis or consolid ation. 3. Cardiomegaly with some degree of volume overload and congestive change. 4. Appropriately positioned lines and tubes. ACT 112: Negative or not required by law. Electronically signed by: Andres Mackey M.D. 05/02/2019 7:06 AM
[2019-05-02] MEDS ORDERED: STAT IV Infusion **Titration per Protocol STA (07:32)
[2019-05-02] MEDS: DAPSONE 25 MG TAB PO SCH ×2 (07:41→20:28)
[2019-05-02] MEDS: INSULIN ASPART 100 UNITS/ML 3 ML PEN SC SCH ×2 (07:41→12:18)
[2019-05-02] MEDS: LANSOPRAZOLE 30 MG SOLTAB OG SCH (07:42)
[2019-05-02] MEDS: FUROSEMIDE 40 MG in SYRINGE 0 ML IV SCH (07:42)
[2019-05-02] MEDS: DICLOFENAC SOD 1% GEL 100 GM TUBE EXT SCH ×4 (07:43→20:29)
[2019-05-02] MEDS: DEXMEDETOMIDINE HCL 200 MCG in SODIUM CHLORIDE 0.9% 48 ML IV SCH ×3 (07:46→20:04)
[2019-05-02] MEDS: MAGNESIUM OXIDE 400 MG TAB NG SCH (07:56)
[2019-05-02] MEDS: ICU ELECTROLYTE REPLACEMENT PROTOCOL SCH (07:59)
[2019-05-02] MEDS: BUDESONIDE 0.5 MG/2 ML VIAL (PULMICORT) INH SCH ×2 (08:12→19:55)
--- NOTE | 2019-05-02 08:32 | Hospitalist Progress Note ---
Date of Service May 02, 2019 Assessment & Plan (1) Acute and chronic respiratory failure with hypoxia: Intubated and sedated since s/p bronchoscopy on 04/30. Currently on Unclear exact etiology ?primarily unspecified lung inflammatory disease causing pulmonary edema and alveolar hemorrhage while on anticoagulation vs. diastolic heart failure causing pulmonary edema and subsequent alveolar hemorrhage while on anticoagulation. There does appear to be some right heart failure to explain her peripheral edema. OG tube feeds and electrolyte replacement as per ICU management. (2) Cardiogenic shock: ICU management to continue to wean phenylephrine drip as able. Present on Admission?: No (3) Inflammation of lung: As above. High dose steroids started by ICU. Continue solu-medrol 125mg q6h. Unclear exact etiology but vasculitis would appear to best fit these episodes although bronchial washing have been unremarkable. (4) Pulmonary alveolar hemorrhage: Holding Xarelto (5) Iron deficiency anemia: FOB negative. Possibly diet related as she reports reduced diet and low in iron containing foods since October however with new diagnosis of alveolar hemorrhage this also could explain her significant iron deficiency. Iron sats 3%. FOB negative. No acute Hgb drop to suggest ongoing large bleeding. Hgb stable at 9.2. Hemoglobin iron deficit (mg) = 84.2kg x (14 - 9.3) x (2.145) = 850 mg Will give total of 5 doses of 200mg elemental iron as Venofer. First dose 04/30. Defer further doses until she is more stable. (6) Hypervolemia: Suspect secondary to lung inflammation rather than heart failure as above. Negative 392ml in last 24 hours. Very negative much early in admission with response to shortness of breath. Appreciate continued fluid management with ICU. Lasix 40mg IV given this morning. (7) Atrial fibrillation: Rate appropriate for current illness. Xarelto on hold due to alveolar hemorrhage as above Appreciate cardiology management (8) Peripheral edema: Improving (9) Hypertension: Holding anti-hypertensives due to hypotension. Possibly change to ACEi prior to discharge depending on resolution of leg edema. (10) Hypothyroid: Chronic. Stable - TSH 1.49 Patient alternates 75mcg and 50mcg dosing -- continue home schedule through OG (11) Allergic rhinitis due to allergen: Continue home montelukast 10mg, fexofenadine 180mg (12) Steroid-induced hyperglycemia: On insulin drip as managed by ICU. HbA1C 5.9 (13) DVT prophylaxis: Xarelto on hold due to alveolar hemorrhage. Admission and Anticipated Discharge Date Admission Date: April 27, 2019 Subjective Patient sedated and ventilated. Unable to give history. Failed CPAP trial this morning. Appears comfortable. ICU weaning Phenylephrine. Review of Systems Review of Systems: Unobtainable due to endotracheal tube and Unobtainable due to reduced consciousness Physical Exam Constitutional: + ill appearing and + mechanically ventilated; no acute distress Neck: trachea midline Respiratory: normal respiratory effort (mechanically ventilated) Auscultation: + rhonchi (b/l throughout); no rales and no wheezes Cardiovascular: Rate/Rhythm: + tachycardic and + irregularly irregular Heart Sounds: no murmur Vessels: no JVD Extremities: + edema (1+ b/l LE, wrinkles, similar to yesterday) Gastrointestinal (Abdomen): Inspection/Auscultation: + abdomen distended and normal bowel sounds Percussion/Palpation: abdomen soft; abdomen nontender, no guarding and abdomen not rigid Skin: no rashes, warm and dry Neurologic: + not awake Psychiatric: Orientation: + not alert (sedated) Results & Data ([facility]) Vital Signs (Past 12 Hours) Vital Signs Temp Pulse Pulse Resp BP BP Pulse Ox 05/02/19 08:13 106 H 21 61 L 05/02/19 08:00 128 H 89 L 05/02/19 07:13 128 H 21 141/97 H 92 05/02/19 07:00 110 H 91 05/02/19 06:00 107 H 93 05/02/19 05:45 87 93 05/02/19 05:30 90 92 05/02/19 05:15 125 H 124/86 91 05/02/19 05:00 89 93 05/02/19 04:56 93 H 27 H 93 05/02/19 04:45 93 H 93 05/02/19 04:30 83 92 05/02/19 04:15 88 93 05/02/19 04:00 81 93 05/02/19 03:46 36.9 C 05/02/19 03:45 87 93 05/02/19 03:30 79 93 05/02/19 03:15 81 94 05/02/19 03:13 75 96/46 L 93 05/02/19 03:00 78 94 05/02/19 02:45 87 93 05/02/19 02:30 88 93 05/02/19 02:15 82 93 05/02/19 02:00 86 93 05/02/19 01:45 84 93 05/02/19 01:42 85 23 92 05/02/19 01:30 91 H 93 05/02/19 01:15 85 93 05/02/19 01:13 77 99/52 L 92 05/02/19 01:00 86 93 05/02/19 00:45 89 93 05/02/19 00:30 87 93 05/02/19 00:15 81 93 05/02/19 00:00 78 96/58 L 93 05/01/19 23:45 87 93 05/01/19 23:30 84 93 05/01/19 23:28 36.9 C 05/01/19 23:15 86 93 05/01/19 23:13 88 96/58 L 92 05/01/19 23:00 85 93 05/01/19 22:45 87 92 05/01/19 22:30 87 93 05/01/19 22:15 87 93 05/01/19 22:00 88 92 05/01/19 21:45 90 93 05/01/19 21:30 90 22 102/60 93 05/01/19 21:15 87 93 05/01/19 21:13 83 99/51 L 92 05/01/19 21:00 89 24 93 05/01/19 20:45 86 93 05/01/19 20:30 92 H 93 PG Care Time/CCT Total # of Minutes Spent Total Time Spent with Patient: Total time spent is greater than 50% in coordination of care (as documented) at patient's floor/unit and/or counseling patient: Coding Level of Care Code 15037 Subseq Hosp Care Lvl 3 Diagnoses Acute and chronic respiratory failure with hypoxia J96.21 Cardiogenic shock R57.0 Inflammation of lung J18.9 Pulmonary alveolar hemorrhage R04.89 Iron deficiency anemia D50.9 Iron deficiency anemia type: unspecified iron deficiency Hypervolemia E87.79 Hypervolemia type: other Atrial fibrillation I48.11 Atrial fibrillation type: longstanding persistent Peripheral edema R60.9 Hypertension I10 Hypertension type: essential hypertension Hypothyroid E03.9 Hypothyroidism type: unspecified Allergic rhinitis due to allergen J30.9 Allergic rhinitis trigger: unspecified Allergic rhinitis seasonality: unspecified Steroid-induced hyperglycemia R73.9; T38.0X5A DVT prophylaxis Z29.9 (1) Iron deficiency anemia Iron deficiency anemia type: unspecified iron deficiency Qualified Code(s): D50.9 - Iron deficiency anemia, unspecified (2) Hypervolemia Hypervolemia type: other Qualified Code(s): E87.79 - Other fluid overload (3) Atrial fibrillation Atrial fibrillation type: longstanding persistent Qualified Code(s): I48.11 - Longstanding persistent atrial fibrillation (4) Hypertension Hypertension type: essential hypertension Qualified Code(s): I10 - Essential (primary) hypertension (5) Hypothyroid Hypothyroidism type: unspecified Qualified Code(s): E03.9 - Hypothyroidism, unspecified (6) Allergic rhinitis due to allergen Allergic rhinitis trigger: unspecified Allergic rhinitis seasonality: unspecified Qualified Code(s): J30.9 - Allergic rhinitis, unspecified
[2019-05-02] MEDS ORDERED: fentaNYL citrate 100 MCG/2 ML VIAL IV PRN (09:53)
--- NOTE | 2019-05-02 12:20 | Critical Care Progress Note ---
Date of Service May 02, 2019 Assessment & Plan (1) Acute and chronic respiratory failure with hypoxia: Impression: 78-year-old female with hypoxemic respiratory failure and d iffuse pulmonary infiltrates with scant hemoptysis. Bronchoscopy with BAL performed 04/30/2019 was consistent with alveolar hemorrhage which again may be secondary to anticoagulation in conjunction with elevated diastolic filling pressures or primary pulmonary vasculitis although previous serological evaluation was negative. She was intubated 04/30/2023 hypoxemic respiratory failure. 24-hour events: Remained hemodynamically stable. Intermittently in atrial fibrillation. On SBT this morning she became very tachycardic with heart rates in the 130s. Chest x-ray remains with subtle bilateral pulmonary infiltrates. Recommendations: 1. Alveolar hemorrhage: Holding all anticoagulation at this point time and continuing with high-dose steroids. Await repeat serological evaluation. Urinalysis did show persistent evidence of hematuria although the sample was a Montez catheterized specimen. Suspect her leukocytosis is related to concomitant steroid administration. No growth on bronc cultures. Anticipate continued systemic steroid with a slow taper over the next several months and close follow-up with Dr. bates. 2. Hypoxemic respiratory failure: Continue ARDS low stretch ventilatory protocol. PEEP and FiO2 appropriate for SBT however the patient became quite agitated and had issues with atrial fibrillation with rapid ventricular response with SBT. Initiated Precedex. Will reassess this afternoon for potential extubation 3. History of asthma, I do not believe that the current infiltrates are related to asthma. She has never demonstrated eosinophilia. She does not appear bronchospastic currently. Her prior PFTs (March 2019) suggest mixed obstructive restrictive physiology 4. Atrial fibrillation with rapid ventricular response: We will pursue a rate control strategy as were unlikely to achieve normal sinus rhythm. Will start beta-pina when she can stay off of Robert-Synephrine. Anticoagulation being held given pulmonary hemorrhage. Continue gentle diuresis 5. Anemia: Counts are currently stable. It certainly possible that low-grade pulmonary hemorrhage could be contributing to her overall anemia. Will restart DVT prophylaxis and follow closely 6. Hypertension: Hold amlodipine currently. May do better with beta-pina. 7. Nutrition: Tolerating tube feeds. Advancing to goal. Patient remains critically ill with significant possibility of clinical deterioration. A total of 38 minutes critical care time spent evaluation management and stabilization of this patient including discussion on multidisciplinary rounds. (2) Acute diastolic CHF (congestive heart failure): (3) Abnormal CT scan of lung: Review of Systems Review of Systems: Unchanged from prior Physical Exam Constitutional: well developed and + mechanically ventilated ENMT: Mallampati Class: II Neck: trachea midline, no thyromegaly Respiratory: normal respiratory effort, lungs clear to auscultation Cardiovascular: Rate/Rhythm: regular rate and + irregularly irregular Heart Sounds: normal S1 and normal S2; no murmur Extremities: + edema Gastrointestinal (Abdomen): normal bowel sounds, soft, nontender, no hepatosplenomegaly Musculoskeletal: Extremities: extremities normal to inspection Skin: no rashes, warm and dry Lymphatic: no cervical lymphadenopathy Results & Data ([facility]) Vital Signs (Past 12 Hours) Vital Signs Temp Pulse Resp BP Pulse Ox 05/02/19 11:20 76 23 93 05/02/19 11:13 100 H 103/70 92 05/02/19 11:00 68 94 05/02/19 10:14 80 93 05/02/19 10:13 79 97/54 L 93 05/02/19 09:13 89 93/52 L 93 05/02/19 09:12 85 93/48 L 93 05/02/19 09:00 86 93/48 L 93 05/02/19 08:13 37.3 C 128 H 21 103/86 90 05/02/19 08:00 128 H 89 L 05/02/19 07:13 128 H 21 141/97 H 92 05/02/19 07:00 110 H 91 05/02/19 06:00 107 H 93 05/02/19 05:45 87 93 05/02/19 05:30 90 92 05/02/19 05:15 125 H 124/86 91 05/02/19 05:00 89 93 05/02/19 04:56 93 H 27 H 93 05/02/19 04:45 93 H 93 05/02/19 04:30 83 92 05/02/19 04:15 88 93 05/02/19 04:00 81 93 05/02/19 03:46 36.9 C 05/02/19 03:45 87 93 05/02/19 03:30 79 93 05/02/19 03:15 81 94 05/02/19 03:13 75 96/46 L 93 05/02/19 03:00 78 94 05/02/19 02:45 87 93 05/02/19 02:30 88 93 05/02/19 02:15 82 93 05/02/19 02:00 86 93 05/02/19 01:45 84 93 05/02/19 01:42 85 23 92 05/02/19 01:30 91 H 93 05/02/19 01:15 85 93 05/02/19 01:13 77 99/52 L 92 05/02/19 01:00 86 93 05/02/19 00:45 89 93 05/02/19 00:30 87 93 05/02/19 00:15 81 93 Laboratory Results 05/02/19 04:25 05/02/19 04:25 05/01/19 05/02/19 06:21 04:25 ABG pH 7.47 H ABG pCO2 43 ABG pO2 85 ABG HCO3 31 H ABG O2 Saturation 96.0 H ABG Base Excess 6.4 H VBG pH 7.43 H VBG pCO2 51 H VBG pO2 39 VBG HCO3 33 VBG O2 Saturation 67.2 VBG Base Excess 8.0 ARTEMIO negative. ANCA, GBM Ab pending. Diagnostic Findings Chest x-ray from today reviewed. Tubes and lines in good position. Patchy infiltrates persist but some improvement. No pleural effusions. Coding Level of Care Code 02239 Subseq Hosp Care Lvl 3 Diagnoses Acute and chronic respiratory failure with hypoxia J96.21 Acute diastolic CHF (congestive heart failure) I50.[address] scan of lung R91.8
--- NOTE | 2019-05-02 13:22 | Pharmacy Report ---
Pharmacy Glycemic Short Note 2 - Date of Service May 02, 2019 - Glycemic Short BSG Results (Last 24 hours): 05/01/19 05/01/19 05/01/19 13:48 15:50 18:28 Glucose POC Glucose 147 H 145 H 135 H 05/01/19 05/02/19 05/02/19 21:21 01:20 04:25 Glucose 175 H POC Glucose 156 H 174 H 05/02/19 05/02/19 05/02/19 05:17 09:53 09:59 Glucose POC Glucose 164 H 181 H 164 H OUTPATIENT ANTIDIABETIC REGIMEN: * N/A, no prior dx of DM however last A1c 5.9 01/2019 consistent with underlying insulin resistance ASSESSMENT: 05/02 * BSGs well controlled with insulin drip, insulin infusing at steady rate of 1.4 units/hr * Pt remains intubated at this time, sedation changed to dexmedetomidine and PRN midazolam + PRN fentanyl. * No pressors required at this time * Impact feeds continue, titrating upwards Q 8 hrs 05/01 * Admitted to ICU for acute on chronic resp failure, requiring intubation for hypoxemia, alveolar hemorrhage * Pt remains intubated, sedated, receiving high dose IV steroids, as well as pressor support in the form of phenylephrine * Pharmacy auto-consulted consulted per "ICU Protocol for Hyperglycemia" * IV insulin infusion initiated overnight for BSGs in upper 200s * IV insulin infusion is best suited to achieve glycemic goals at this time given current stressors, less reliable SQ insulin absorption while on pressors and with the initiation of continuous tube feeds that will be titrated upwards PLAN FOR INPATIENT GLYCEMIC CONTROL: * continue IV insulin infusion per protocol, goal range 110-180 * Bolus insulin * Nutritional / Prandial insulin: none at this time - will allow insulin infusion to titrate upwards as needed to cover carbs delivered in TFs * Reassess insulin needs with each step down in steroid dose. Would anticipate little to no insulin required when steroids d/c'd and tube feeds stopped
[2019-05-02] MEDS ORDERED: Nursing to Pharmacy Communication ONE (17:30)
[2019-05-02] MEDS: IMPACT LIQD 1.0 CAL 1,000 ML BAG OG SCH (17:37)
[2019-05-02] MEDS ORDERED: FUROSEMIDE 40 MG in SYRINGE 0 ML IV ONE (17:50)
[2019-05-02] MEDS: HEPARIN SOD 5,000 UNIT/0.5 ML VIAL SQ SCH (20:28)
[2019-05-02] MEDS: METOPROLOL TARTRATE 25 MG TAB PO SCH (20:28)
[2019-05-03] MEDS: DEXMEDETOMIDINE HCL 200 MCG in SODIUM CHLORIDE 0.9% 48 ML IV SCH ×5 (00:32→15:08)
[2019-05-03] MEDS: methylPREDNISolone 125 MG in SYRINGE 0 ML IV SCH ×5 (00:33→23:20)
[2019-05-03] MEDS: INSULIN REGULAR 250 UNITS in SODIUM CHLORIDE 0.9% 247.5 ML IV SCH (01:54)
[2019-05-03] MEDS: METOPROLOL TARTRATE 25 MG TAB PO SCH ×4 (02:35→20:15)
[2019-05-03 04:48] LABS: Basophils # (auto) 0.01 K/uL (0-0.2); Basophils % (auto) 0.1 %; Hemoglobin 9.8 g/dL (12.0-16.0); Immature Granulocytes # (auto) 0.06 K/uL (0.00-0.02); Immature Granulocytes % (auto) 0.3 %; Lymphocytes # (auto) 0.41 K/uL (1.2-3.4); Lymphocytes % (auto) 2.1 %; Mean Corpuscular Hemoglobin 24.3 pg (25-34); Mean Corpuscular Hgb Conc 29.7 g/dL (32-36); Mean Corpuscular Volume 81.9 fL (80-100); Mean Platelet Volume 9.9 fL (7.4-10.4); Monocytes # (auto) 0.65 K/uL (0.11-0.59); Monocytes % (auto) 3.4 %; Neutrophils # (auto) 18.22 K/uL (1.4-6.5); Neutrophils % (auto) 94.1 %; Platelet Count 206 K/uL (130-400); RDW Standard Deviation 49.9 fL (36.4-46.3); Red Blood Count 4.03 M/uL (4.2-5.4); White Blood Count 19.35 K/uL (4.8-10.8)
[2019-05-03 04:54] LABS: Base Excess ABG 11.7 mEq/L (-9-1.8); HCO3 ABG 35 mmol/L (19-24); PCO2 ABG 42 mmHg (35-46); PO2 ABG 85 mmHg (80-95)
[2019-05-03 04:55] LABS: Allen Test POS (Pos)
[2019-05-03 04:56] LABS: pH ABG 7.54 (7.35-7.45)
[2019-05-03 04:58] LABS: INR 1.5 (0.9-1.1); Prothrombin Time 14.6 Seconds (9.0-12.0)
[2019-05-03 05:09] LABS: BUN Creatinine Ratio 59.1 (10-20); Calcium 8.5 mg/dl (8.5-10.1); Creatinine Clr Calc Pharmacy 52.8 ml/min; Est GFR (Non-African American) 60.4; Magnesium 2.5 mg/dl (1.8-2.4); Phosphorus 3.7 mg/dl (2.5-4.9); Potassium 4.1 mmol/L (3.5-5.1)
[2019-05-03] MEDS: LEVOTHYROXINE SODIUM 75 MCG TABLET NG SCH (05:55)
[2019-05-03] MEDS ORDERED: METOPROLOL TARTRATE 1 MG/ML VIAL IV ONE (07:17)
[2019-05-03] MEDS ORDERED: METOPROLOL TARTRATE 1 MG/ML VIAL IV PRN (07:17)
[2019-05-03] MEDS: BUDESONIDE 0.5 MG/2 ML VIAL (PULMICORT) INH SCH ×2 (07:30→19:48)
[2019-05-03] MEDS: LANSOPRAZOLE 30 MG SOLTAB OG SCH (07:32)
[2019-05-03] MEDS: DAPSONE 25 MG TAB PO SCH ×2 (07:32→20:15)
[2019-05-03] MEDS: HEPARIN SOD 5,000 UNIT/0.5 ML VIAL SQ SCH ×2 (07:34→20:16)
[2019-05-03] MEDS: MAGNESIUM OXIDE 400 MG TAB NG SCH (07:36)
[2019-05-03] MEDS: FUROSEMIDE 40 MG in SYRINGE 0 ML IV SCH (07:36)
[2019-05-03] MEDS ORDERED: METOPROLOL TARTRATE 1 MG/ML VIAL IV STA (07:47)
[2019-05-03] MEDS: DICLOFENAC SOD 1% GEL 100 GM TUBE EXT SCH ×4 (07:47→20:16)
--- NOTE | 2019-05-03 08:02 | XRay Report ---
XR chest 1V portable HISTORY: Shortness of breath. COMPARISON: Chest 05/02/2019. FINDINGS: Endotracheal tube terminates 3.1 centers in the deyanira. The nasogastric tube terminates bel ow the diaphragm. The tip is not included on this study. Left jugular central venous catheter termina lyla at the SVC. No pneumothorax. Emphysema. Patchy bilateral mid to lower lung zone airspace opacitie s have slightly improved. Small left pleural effusion persists. The heart remains enlarged. IMPRESSION: 1. Satisfactory support line placement. 2. Slight improvement in the bilateral patchy airspace opacities. ACT 112: Negative or not required by law. Electronically signed by: Hugo Drake M.D. 05/03/2019 8:01 AM
--- NOTE | 2019-05-03 08:22 | Critical Care Progress Note ---
Date of Service May 03, 2019 Assessment & Plan (1) Acute and chronic respiratory failure with hypoxia: Impression: 78-year-old female with hypoxemic respiratory failure and d iffuse pulmonary infiltrates with scant hemoptysis. Bronchoscopy with BAL performed 04/30/2019 was consistent with alveolar hemorrhage which again may be secondary to anticoagulation in conjunction with elevated diastolic filling pressures or primary pulmonary vasculitis although previous serological evaluation was negative. She was intubated 04/30/2023 hypoxemic respiratory failure. 24-hour events: SBT this morning reassuring. Doing well on Precedex. Administered an additional dose of 5 mg IV metoprolol before SBT. Initially on SBT she became tachycardic and tachypneic however on reassessment after the metoprolol she did quite well. Recommendations: 1. Alveolar hemorrhage: Holding all anticoagulation at this point time and continuing with high-dose steroids. Await repeat serological evaluation. Urinalysis did show persistent evidence of hematuria although the sample was a Montez catheterized specimen. Suspect her leukocytosis is related to concomitant steroid administration. No growth on [facility] cultures. Anticipate continued systemic steroid with a slow taper over the next several months and close follow-up with Dr. bates. Continue dapsone P LOLIS prophylaxis. Her INR is mildly elevated at 1.5 and will continue to trend. No indication for FFP currently. 2. Hypoxemic respiratory failure: Doing well on SBT this morning. Plan on proceeding with extubation. Wean oxygen as tolerated to defend oxygen saturations greater than or equal to 88%. Wean Precedex to off. 3. History of asthma, I do not believe that the current infiltrates are related to asthma. She has never demonstrated eosinophilia. She does not appear bronchospastic currently. Her prior PFTs (March 2019) suggest mixed obstructive restrictive physiology 4. Atrial fibrillation with rapid ventricular response: Continue gentle diuresis and low-dose beta-pina. 5. Anemia: Counts are currently stable. It certainly possible that low-grade p ulmonary hemorrhage could be contributing to her overall anemia. Will restart DVT prophylaxis and follow closely 6. Hypertension: Continue metoprolol 7. Nutrition: Tube feeds on hold for extubation. Patient does have mild hypernatremia today. Will need some free water. Hopefully if the patient's extubated we can advance her diet to clears later today which will allow for free water administration. 8. Metabolic alkalosis: Administer 1 dose of Diamox today. Follow-up bicarb in a.m. Discussed with ICU nurse at bedside. Patient's son, Rajesh, was updated by phone yesterday (2) Acute diastolic CHF (congestive heart failure): (3) Abnormal CT scan of lung: Subjective Patient remains intubated and sedated. She is currently on SBT. Review of Systems Review of Systems: Unobtainable due to endotracheal tube Physical Exam Constitutional: well developed and + mechanically ventilated Eyes: PERRL Neck: trachea midline, no thyromegaly Respiratory: Coarse breath sounds bilaterally without wheezing. Cardiovascular: Rate/Rhythm: regular rate and + irregularly irregular Heart Sounds: normal S1 and normal S2; no murmur Extremities: + edema Gastrointestinal (Abdomen): normal bowel sounds, soft, nontender, no hepatosplenomegaly Musculoskeletal: Extremities: extremities normal to inspection Skin: no rashes, warm and dry Lymphatic: no cervical lymphadenopathy Results & Data ([facility]) Vital Signs (Past 12 Hours) Vital Signs Temp Pulse Resp BP Pulse Ox 05/03/19 07:49 37 C 88 146/87 H 94 05/03/19 07:46 113 H 158/77 H 05/03/19 07:31 85 19 95 05/03/19 06:30 89 142/66 H 94 05/03/19 06:00 95 H 28 H 95 05/03/19 05:49 85 141/72 H 96 05/03/19 04:57 94 H 25 H 96 05/03/19 04:49 79 134/75 96 05/03/19 03:49 36.7 C 76 132/72 96 05/03/19 02:49 73 137/62 94 05/03/19 02:16 79 20 97 05/03/19 01:49 80 124/64 96 05/03/19 01:00 79 94 05/03/19 00:49 77 126/67 94 05/02/19 23:49 81 129/68 94 05/02/19 23:15 86 20 94 05/02/19 22:49 93 H 125/72 95 05/02/19 22:45 87 92 05/02/19 22:30 94 H 93 05/02/19 22:15 76 93 05/02/19 22:00 74 93 05/02/19 21:49 69 121/65 93 05/02/19 21:46 72 93 02/21/20 21:44 76 115/66 93 05/02/19 21:30 75 93 05/02/19 21:26 73 115/66 93 05/02/19 21:15 78 93 05/02/19 21:00 80 92 05/02/19 20:56 77 117/60 93 05/02/19 20:45 69 92 05/02/19 20:30 75 92 05/02/19 20:26 85 128/72 92 Laboratory Results 05/03/19 04:34 05/03/19 04:34 Diagnostic Findings Chest x-ray today demonstrates tubes and lines to be in good position. There are patchy pulmonary opacities most prominently within the left midlung zone and right lower lobe. These continue to show slow and steady improvement. Coding Level of Care Code 81521 Subseq Hosp Care Lvl 3 Diagnoses Acute and chronic respiratory failure with hypoxia J96.21 Acute diastolic CHF (congestive heart failure) I50.[address] scan of lung R91.8
[2019-05-03] MEDS ORDERED: HEPARIN SOD 5,000 UNIT/0.5 ML VIAL SQ SCH (09:00)
[2019-05-03] MEDS: acetaZOLAMIDE 500 MG in SYRINGE 0 ML IV SCH (09:02)
[2019-05-03] MEDS: ICU ELECTROLYTE REPLACEMENT PROTOCOL SCH (10:13)
--- NOTE | 2019-05-03 13:56 | Pharmacy Report ---
Glycemic Control Progress Note - Date of Service May 03, 2019 - Scope Glycemic Pharmacist consulted for glycemic control to write orders per [facility] inpatient glycemic control protocol. - Objective Accuchecks BSG(last 24 hours):: 05/02/19 05/02/19 05/02/19 14:47 15:54 17:22 Glucose POC Glucose 195 H 196 H 223 H 05/02/19 05/02/19 05/02/19 18:03 18:54 20:23 Glucose POC Glucose 202 H 179 H 160 H 05/02/19 05/03/19 05/03/19 21:58 00:03 02:08 Glucose POC Glucose 141 H 135 H 150 H 05/03/19 05/03/19 05/03/19 04:34 05:52 09:56 Glucose 162 H POC Glucose 173 H 154 H 05/03/19 05/03/19 11:56 13:18 Glucose POC Glucose 113 H 97 - Recent Pertinent Medications The patient is currently receiving: * Basal insulin: Lantus -- units every -- hours * Correctional Insulin: Novolog Correction per scale ACHS Goal Range: Low -- mg/dL - High -- mg/dL Correction Factor: -- mg/dL/unit * Prandial insulin: Per carb ratio of 1 unit per -- grams CHO consumed * Insulin infusion: running between 2.4-2.9 units/hr - Outpatient Anti-Diabetic Meds N/A - Assessment & Plan ASSESSMENT: * See progress note from 05/01/2019 for more background info, in short: * Pt receiving SQ basal bolus insulin regimen for hyperglycemia secondary to steroids (Solu-Medrol 125 mg IV q6 hours). Patient's HbA1C was 5.9% on 02/06/2020. * Patient is currently receiving an average of 35 units of insulin over the last 12 hours via IV infusion * 35 units of basal insulin over the last 12 hours * 0 units of prandial/correctional insulin * BSGs ranging 135 - 179 mg/dl over the past 24hrs * Changes needed to insulin regimen: * AM Fasting BSG = 162 mg/dl. This is in goal range for patient based on inpatient targets and co-morbidities. Since the patient was extubated and tube feeds were stopped, expect patient's insulin requirements to decrease. Hesitant to stop and transition to SQ insulin at this point due to the patient being NPO, ongoing steroids, and low HbA1C as an outpatient indicat ing steroids are most likely the sole reason for elevated blood sugars. Transition to SQ with resumption of diet (and patient tolerating diet well) and clear picture of steroids going forward. * Post-prandial BSGs are in range therefore no changes needed. * Total daily dose = ? units. This will depend on steroid course. PLAN FOR INPATIENT GLYCEMIC CONTROL: * Continuing IV insulin infusion per moderate (moderate/severe) stress protocol * Goal Range 110 - 180 mg/dl * In the critical care setting, continuous IV insulin infusion has been shown to be the best method for achieving glycemic targets. * Please note that the plan above was derived based on current level of insulin resistance and hospital stress. These recommendations are appropriate for inpatient admission only. Plan of care upon discharge will need to be reassessed to avoid potential outpatient hypo/hyperglycemia. Thank you.
--- NOTE | 2019-05-03 16:07 | Hospitalist Progress Note ---
Date of Service May 03, 2019 Assessment & Plan (1) Metabolic encephalopathy: Patient extubated this morning. Appears generally confused and fatigued when seen. Slight drooping of left eye lid but otherwise no unilateral focal neurological deficit, no longer on Xarelto but this has not been stopped for long therefore feel a stroke is much less likely than metabolic encephalopathy. Secondary to metabolic alkalosis, precedex, ICU admission, s/p intubation. (2) Metabolic alkalosis: Suspect secondary to lasix use. Acetazolamide given by ICU. Continue to monitor as this may be causing metabolic encephalopathy as above. (3) Acute and chronic respiratory failure with hypoxia: Appears to be maintaining her O2 sats well after extubation on only 4L O2. As per ICU management. (4) Cardiogenic shock: Now resolved off - phenylephrine drip. (5) Inflammation of lung: As above. High dose steroids started by ICU. Continue solu-medrol 125mg q6h. Unclear exact etiology but vasculitis would appear to best fit these episodes although bronchial washing have been unremarkable. (6) Pulmonary alveolar hemorrhage: Holding Xarelto (7) Iron deficiency anemia: FOB negative. Secondary to alveolar hemorrhage +/- poor dietary intake. Iron sats 3%. FOB negative. No acute Hgb drop to suggest ongoing large bleeding. Hgb stable. Hemoglobin iron deficit (mg) = 84.2kg x (14 - 9.3) x (2.145) = 850 mg Will give total of 5 doses of 200mg elemental iron as Venofer. First dose 04/30. Defer further doses until she is more stable. (8) Hypervolemia: Suspect secondary to lung inflammation rather than heart failure as above. Negative 678 ml in last 24 hours. Significant diuresis earlier in admission with response to shortness of breath. Appreciate continued fluid management with ICU. Lasix 40mg IV + acetazolamide (9) Atrial fibrillation: Rate appropriate for current illness. Xarelto on hold due to alveolar hemorrhage as above Appreciate cardiology management (10) Peripheral edema: Improving (11) Hypertension: Holding anti-hypertensives due to hypotension. Possibly change to ACEi prior to discharge depending on resolution of leg edema. (12) Hypothyroid: Chronic. Stable - TSH 1.49 Patient alternates 75mcg and 50mcg dosing -- continue home schedule through OG (13) Allergic rhinitis due to allergen: Continue home montelukast 10mg, fexofenadine 180mg (14) Steroid-induced hyperglycemia: On insulin drip as managed by ICU. HbA1C 5.9 (15) DVT prophylaxis: Xarelto on hold due to alveolar hemorrhage. Admission and Anticipated Discharge Date Admission Date: April 27, 2019 Unknown discharge date at this time Subjective Patient extubated this morning. Alert and being fed without overt aspirations. No pain but she complains of feeling very tired. Thinks she remembers me from prior to her intubation but cannot remember who I am or what I do. She is unaware of where she is or the date or what has happened on this admission. Moving all extremities. Denies shortness of breath. Review of Systems Review of Systems: All systems reviewed & are unremarkable except as noted in HPI & below Physical Exam Constitutional: well developed, + ill appearing and + frail appearing; + not well nourished and no acute distress Eyes: + anicteric sclerae; normal pupil size ENMT: external ear and nose normal, oropharynx normal Respiratory: Auscultation: + rhonchi (b/l anteriorly); no diminished lung sounds and no wheezes Cardiovascular: Rate/Rhythm: regular rate and + irregularly irregular Heart Sounds: no murmur Gastrointestinal (Abdomen): normal bowel sounds, soft, nontender, no hepatosplenomegaly Skin: no rashes, warm and dry Neurologic: moves all extremities, + focal motor deficit (left eyelid drooping), awake and + confused Motor/Sensory: no sensory deficit Generalized weakness b/l, 5/5 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/l Psychiatric: Orientation: alert; + not oriented x 3 Results & Data ([facility]) Vital Signs (Past 12 Hours) Vital Signs Temp Pulse Resp BP Pulse Ox 05/03/19 12:49 36.3 C L 96 H 20 143/70 H 94 05/03/19 11:50 100 H 22 136/83 91 05/03/19 10:49 85 17 132/74 94 05/03/19 09:50 87 18 131/88 92 05/03/19 08:49 83 23 137/72 94 05/03/19 07:49 37 C 88 146/87 H 94 05/03/19 07:46 113 H 158/77 H 05/03/19 07:31 85 19 95 05/03/19 06:30 89 142/66 H 94 05/03/19 06:00 95 H 28 H 95 05/03/19 05:49 85 141/72 H 96 05/03/19 04:57 94 H 25 H 96 05/03/19 04:49 79 134/75 96 PG Care Time/CCT Total # of Minutes Spent Total Time Spent with Patient: Total time spent is greater than 50% in coordination of care (as documented) at patient's floor/unit and/or counseling patient: Coding Level of Care Code 41220 Subseq Hosp Care Lvl 3 Diagnoses Metabolic encephalopathy G93.41 Metabolic alkalosis E87.3 Acute and chronic respiratory failure with hypoxia J96.21 Cardiogenic shock R57.0 Inflammation of lung J18.9 Pulmonary alveolar hemorrhage R04.89 Iron deficiency anemia D50.9 Iron deficiency anemia type: unspecified iron deficiency Hypervolemia E87.79 Hypervolemia type: other Atrial fibrillation I48.11 Atrial fibrillation type: longstanding persistent Peripheral edema R60.9 Hypertension I10 Hypertension type: essential hypertension Hypothyroid E03.9 Hypothyroidism type: unspecified Allergic rhinitis due to allergen J30.9 Allergic rhinitis seasonality: unspecified Allergic rhinitis trigger: unspecified Steroid-induced hyperglycemia R73.9; [id number] DVT prophylaxis Z29.9 (1) Atrial fibrillation Atrial fibrillation type: longstanding persistent Qualified Code(s): I48.11 - Longstanding persistent atrial fibrillation (2) Hypothyroid Hypothyroidism type: unspecified Qualified Code(s): E03.9 - Hypothyroidism, unspecified (3) Iron deficiency anemia Iron deficiency anemia type: unspecified iron deficiency Qualified Code(s): D50.9 - Iron deficiency anemia, unspecified (4) Allergic rhinitis due to allergen Allergic rhinitis seasonality: unspecified Allergic rhinitis trigger: unspecified Qualified Code(s): J30.9 - Allergic rhinitis, unspecified (5) Hypertension Hypertension type: essential hypertension Qualified Code(s): I10 - Essential (primary) hypertension (6) Hypervolemia Hypervolemia type: other Qualified Code(s): E87.79 - Other fluid overload
[2019-05-03] MEDS ORDERED: HALOPERIDOL LACTATE 5 MG/ML 1 ML VIAL IV STA (17:35)
[2019-05-04] MEDS: METOPROLOL TARTRATE 25 MG TAB PO SCH ×3 (01:44→20:29)
[2019-05-04 04:08] LABS: Hematocrit (blood only) 31.1 % (37-47); Hemoglobin 9.2 g/dL (12.0-16.0); Mean Corpuscular Hemoglobin 24.1 pg (25-34); Mean Corpuscular Hgb Conc 29.6 g/dL (32-36); Mean Corpuscular Volume 81.4 fL (80-100); Nucleated RBC # (auto) 0.03 K/uL (0-0); Nucleated RBC % (auto) 0.1 %; Platelet Count 217 K/uL (130-400); RDW Coefficient of Variation 17.3 % (11.5-14.5); RDW Standard Deviation 51.4 fL (36.4-46.3); Red Blood Count 3.82 M/uL (4.2-5.4); White Blood Count 21.81 K/uL (4.8-10.8)
[2019-05-04] MEDS: INSULIN REGULAR 250 UNITS in SODIUM CHLORIDE 0.9% 247.5 ML IV SCH (04:26)
[2019-05-04] MEDS: INSULIN ASPART 100 UNITS/ML 3 ML PEN SC SCH ×5 (04:27→20:31)
[2019-05-04 04:33] LABS: BUN Creatinine Ratio 62.8 (10-20); Calcium 8.4 mg/dl (8.5-10.1); Creatinine Clr Calc Pharmacy 83.8 ml/min; Est GFR (African American) 102.1; Est GFR (Non-African American) 88.1; Magnesium 2.2 mg/dl (1.8-2.4); Phosphorus 3.6 mg/dl (2.5-4.9); Potassium 2.7 mmol/L (3.5-5.1)
[2019-05-04 04:38] LABS: Hypochromasia Present; Immature Granulocytes # (auto) 0.08 K/uL (0.00-0.02); Immature Granulocytes % (auto) 0.4 %; Lymphocytes # (auto) 0.71 K/uL (1.2-3.4); Lymphocytes % (auto) 3.3 %; Monocytes # (auto) 0.46 K/uL (0.11-0.59); Monocytes % (auto) 2.1 %; Neutrophils # (auto) 20.56 K/uL (1.4-6.5); Neutrophils % (auto) 94.2 %; Polychromasia 1+
[2019-05-04] MEDS: methylPREDNISolone 125 MG in SYRINGE 0 ML IV SCH (05:39)
[2019-05-04] MEDS: LEVOTHYROXINE SODIUM 50 MCG TABLET NG SCH (05:40)
[2019-05-04] MEDS: BUDESONIDE 0.5 MG/2 ML VIAL (PULMICORT) INH SCH ×2 (07:04→19:18)
[2019-05-04] MEDS: POTASSIUM CHLORIDE / WTR 20 MEQ/100 ML PLCT IV SCH ×3 (07:19→10:58)
[2019-05-04] MEDS: DAPSONE 25 MG TAB PO SCH ×2 (07:28→20:28)
[2019-05-04] MEDS: LANSOPRAZOLE 30 MG SOLTAB OG SCH (07:29)
[2019-05-04] MEDS: HEPARIN SOD 5,000 UNIT/0.5 ML VIAL SQ SCH ×2 (07:35→20:27)
[2019-05-04] MEDS: DICLOFENAC SOD 1% GEL 100 GM TUBE EXT SCH ×4 (07:41→20:29)
[2019-05-04] MEDS: acetaZOLAMIDE 500 MG in SYRINGE 0 ML IV SCH (07:47)
[2019-05-04] MEDS: MAGNESIUM OXIDE 400 MG TAB NG SCH (07:47)
[2019-05-04] MEDS: FUROSEMIDE 40 MG in SYRINGE 0 ML IV SCH (07:47)
--- NOTE | 2019-05-04 08:09 | Critical Care Progress Note ---
Date of Service May 04, 2019 Assessment & Plan (1) Acute and chronic respiratory failure with hypoxia: Impression: 78-year-old female with hypoxemic respiratory failure and d iffuse pulmonary infiltrates with scant hemoptysis. Bronchoscopy with BAL performed 04/30/2019 was consistent with alveolar hemorrhage which again may be secondary to anticoagulation in conjunction with elevated diastolic filling pressures or primary pulmonary vasculitis although previous serological evaluation was negative. She was intubated 04/30/2023 hypoxemic respiratory failure. 24-hour events: Extubated yesterday. Did experience some anticipated ICU delirium which responded reasonably well to Haldol. Much better this morning. Alert and oriented and conversant. Down to 3 L nasal cannula. Tolerating clear liquid diet. Recommendations: 1. Alveolar hemorrhage: Holding anticoagulation at this point time and continuing with high-dose steroids. Await repeat serological evaluation. Urinalysis did show persistent evidence of hematuria although the sample was a Montez catheterized specimen. Suspect her leukocytosis is related to concomitant steroid administration. No growth on bronc cultures. Anticipate continued systemic steroid with a slow taper over the next several months and close follow-up with Dr. bates. Continue dapsone PJP prophylaxis. Her INR is mildly elevated at 1.5 and will continue to trend. No indication for FFP currently. 2. Hypoxemic respiratory failure: Continue to wean oxygen as tolerated. Maint ain saturations at or above 88%. 3. History of asthma, I do not believe that the current infiltrates are related to asthma. She has never demonstrated eosinophilia. She does not appear bronchospastic currently. 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 Continue budesonide and as needed albuterol 4. Atrial fibrillation with rapid ventricular response: Good response to diuretics with kidney function holding stable. Change metoprolol to 25 twice daily. Titrate up as tolerated. Discontinue Norvasc. Discontinue Montez catheter. PT and OT. 5. Anemia: Counts are currently stable. It certainly possible that low-grade pulmonary hemorrhage could be contributing to her overall anemia. Continuing DVT prophylaxis and follow closely 6. Hypertension: Continue metoprolol 7. Nutrition: Advance diet as tolerated 8. Metabolic alkalosis: Bicarb better today after 1 dose of Diamox. Give additional dose today and follow. 9. Hypokalemia: Continue replacement protocols. We will add some oral replacement Okay to transfer to the floor under the care of the hospitalist. We will continue to follow for pulmonary issues. (2) Acute diastolic CHF (congestive heart failure): (3) Abnormal CT scan of lung: Physical Exam Constitutional: well developed Eyes: PERRL Neck: trachea midline, no thyromegaly Respiratory: normal respiratory effort, lungs clear to auscultation Cardiovascular: Rate/Rhythm: regular rate and + irregularly irregular Heart Sounds: normal S1 and normal S2; no murmur Extremities: + edema Gastrointestinal (Abdomen): normal bowel sounds, soft, nontender, no hepatosplenomegaly Musculoskeletal: Extremities: extremities normal to inspection Skin: no rashes, warm and dry Lymphatic: no cervical lymphadenopathy Results & Data ([facility]) Vital Signs (Past 12 Hours) Vital Signs Temp Pulse Pulse Resp BP Pulse Ox 05/04/19 07:04 90 18 94 05/04/19 06:27 36.6 C 05/04/19 06:00 96 H 15 90 05/04/19 05:50 115 H 25 H 159/96 H 84 L 05/04/19 05:30 79 18 95 05/04/19 05:00 86 20 93 05/04/19 04:50 83 20 137/73 92 05/04/19 04:30 82 20 92 05/04/19 04:00 74 16 92 05/04/19 03:50 74 14 136/69 92 05/04/19 03:30 79 12 90 05/04/19 03:00 73 16 94 05/04/19 02:50 77 12 136/74 94 05/04/19 02:30 77 15 95 05/04/19 02:00 85 18 94 05/04/19 01:50 78 12 131/74 95 05/04/19 01:30 36.8 C 70 12 95 05/04/19 01:00 87 20 93 05/04/19 00:50 84 19 139/79 94 05/04/19 00:30 91 H 17 91 05/04/19 00:00 92 H 21 93 05/03/19 23:50 72 17 138/71 93 05/03/19 23:30 83 17 93 05/03/19 23:00 86 3 L 93 05/03/19 22:51 81 16 95 05/03/19 22:50 78 12 141/75 H 94 05/03/19 22:30 95 H 15 96 05/03/19 22:00 91 H 12 97 05/03/19 21:50 92 H 12 151/97 H 97 05/03/19 21:30 90 9 L 97 05/03/19 20:50 36.6 C 88 20 149/93 H 93 Laboratory Results 05/04/19 03:51 05/04/19 03:51 Diagnostic Findings No new films Coding Level of Care Code 93850 Subseq Hosp Care Lvl 3 Diagnoses Acute and chronic respiratory failure with hypoxia J96.21 Acute diastolic CHF (congestive heart failure) I50.[address] scan of lung R91.8
[2019-05-04] MEDS ORDERED: FUROSEMIDE 20 MG TAB PO SCH (09:00)
--- NOTE | 2019-05-04 09:01 | XRay Report ---
XR chest 1V portable CLINICAL HISTORY: hypoxemia COMPARISON STUDY: 05/03/2019 FINDINGS: Interval extubation. Central catheter remains in the superior vena cava. Parenchymal infiltrative change of the left lung base as well as right base are mildly improved. Mild stable cardiomegaly. IMPRESSION: 1. Interval extubation. 2. Improving bilateral parenchymal infiltrative change. ACT 112: Negative or not required by law. The above report was generated using voice recognition software. It may contain grammatical, syntax or spelling errors. Electronically signed by: Hussain Cody M.D. 05/04/2019 8:59 AM
[2019-05-04] MEDS: POTASSIUM CHLORIDE 20 MEQ TABCR PO SCH ×3 (09:24→20:38)
[2019-05-04] MEDS: ICU ELECTROLYTE REPLACEMENT PROTOCOL SCH (10:40)
[2019-05-04] MEDS: methylPREDNISolone 60 MG in SYRINGE 0 ML IV SCH ×3 (11:00→23:56)
[2019-05-04] MEDS ORDERED: Nursing to Pharmacy Communication ONE (11:30)
[2019-05-04] MEDS: ACETAMINOPHEN 325 MG TAB PO PRN ×3 (11:41→23:54)
--- NOTE | 2019-05-04 13:54 | Pharmacy Report ---
Glycemic Control Progress Note - Date of Service May 04, 2019 - Scope Glycemic Pharmacist consulted for glycemic control to write orders per [facility] inpatient glycemic control protocol. - Objective Accuchecks BSG(last 24 hours):: 05/03/19 05/03/19 05/03/19 13:58 15:05 16:07 Glucose POC Glucose 106 H 108 H 130 H 05/03/19 05/03/19 05/03/19 16:57 18:02 18:55 Glucose POC Glucose 119 H 158 H 113 H 05/03/19 05/03/19 05/03/19 19:50 21:07 22:08 Glucose POC Glucose 116 H 114 H 103 H 05/03/19 05/04/19 05/04/19 23:02 01:00 03:51 Glucose 116 H POC Glucose 103 H 103 H 05/04/19 05/04/19 05/04/19 03:57 07:22 11:42 Glucose POC Glucose 120 H 132 H 190 H - Recent Pertinent Medications The patient is currently receiving: * Basal insulin: Lantus -- units every -- hours * Correctional Insulin: Novolog Correction per scale ACHS Goal Range: Low 120 mg/dL - High 160 mg/dL Correction Factor: 30 mg/dL/unit * Prandial insulin: Per carb ratio of 1 unit per 10 grams CHO consumed * IV insulin: d/c'ed around 0200 - Outpatient Anti-Diabetic Meds N/A - Assessment & Plan ASSESSMENT: * See progress note from 05/01/2019 for more background info, in short: * Pt receiving SQ basal bolus insulin regimen for hyperglycemia secondary to steroids (was on Solu-Medrol 125 mg IV q6 hours now on Solu-Medrol 60 mg IV q6 hours). * Patient is currently receiving an average of ~40 units of insulin per day via IV infusion * -- units of basal insulin * 40 units of prandial/correctional insulin * BSGs ranging 97 - 162 mg/dl over the past 24hrs * Changes needed to insulin regimen: * AM Fasting BSG = 132 mg/dl. This is in goal range for patient based on inpatient targets and co-morbidities. The patient started a diet yesterday evening. In the morning, it was not clear if the patient would require basal insulin while on the IV steroids. Want to emphasize carbohydrate coverage. Lunch BSG was 190 mg/dL indicating that it may be good to start basal when BSGs > 180 mg/dL. Chose NPH since patient will be on steroids for a bit and this would better mimic steroid PKs. * Post-prandial BSGs trended up at lunch. Tighten to weight-based stress of 3. * Total daily dose = ? units. Will be determined based upon steroid dose and duration PLAN FOR INPATIENT GLYCEMIC CONTROL: * Starting NPH 15 units SQ BIDM if BSG > 180 mg/dL * TIGHTENING correction factor to 20 mg/dl/unit * TIGHTENING carb ratio to 1 unit per 7 grams CHO consumed * Continuing goal range to Low 120 mg/dL - High 160 mg/dL * Please note that the plan above was derived based on current level of insulin resistance and hospital stress. These recommendations are appropriate for inpatient admission only. Plan of care upon discharge will need to be reassessed to avoid potential outpatient hypo/hyperglycemia. Thank you.
[2019-05-04] MEDS ORDERED: methylPREDNISolone 60 MG in SYRINGE 0 ML IV SCH (14:00)
[2019-05-04] MEDS ORDERED: INSULIN HUMAN NPH SC SCH (17:00)
[2019-05-04] MEDS ORDERED: POTASSIUM CHLORIDE 20 MEQ TABCR PO STA (18:12)
--- NOTE | 2019-05-04 18:28 | Hospitalist Progress Note ---
Date of Service May 04, 2019 Assessment & Plan (1) Metabolic encephalopathy: Extubated 03/03. Encephalopathy much improved this morning but not back to her baseline prior to intubation. Secondary to metabolic alkalosis, precedex, ICU admission, s/p intubation. (2) Metabolic alkalosis: Suspect secondary to lasix use. Improved with acetazolamide (3) Acute and chronic respiratory failure with hypoxia: Appears to be maintaining her O2 sats well after extubation on only 2L O2. (4) Cardiogenic shock: Now resolved off - phenylephrine drip. Transferred to med/tele. (5) Inflammation of lung: Unclear etiology. ?just raised diastolic pressures leading to alveolar hemorrhage while on xarelto vs. primary vasculitis/inflammatory lung disease. 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 No PNA on this occasion on admission but she had a number of days of levaquin prior which may have scewed the clinical picture. Will defer steroid taper to pulmonary for this complex patient but this appears to be the intervention that has helped the most. Follow up with pulmonary on discharge. PCP prophylaxis as per pulmonary. If this is to be chcf would recommend patient placed on cimetidine. (6) Pulmonary alveolar hemorrhage: Holding Xarelto (7) Iron deficiency anemia: FOB negative. Secondary to alveolar hemorrhage +/- poor dietary intake. Iron sats 3%. FOB negative. No acute Hgb drop to suggest ongoing large bleeding. Hgb stable. Hemoglobin iron deficit (mg) = 84.2kg x (14 - 9.3) x (2.145) = 850 mg Will give total of 5 doses of 200mg elemental iron as Venofer. First dose 04/30. Defer further doses until she is more stable. (8) Hypervolemia: Suspect secondary to lung inflammation, less likely diastolic heart failure as no real precipitating event to have caused the heart failure. Negative 17 liters this admission! Appears euvolemic at present. Lasix reduced to 20mg PO, acetazolamide continued for metabolic alkalosis. (9) Atrial fibrillation: Rate appropriate for current illness. Xarelto on hold due to alveolar hemorrhage as above Appreciate cardiology management (10) Peripheral edema: Improving with diuresis (11) Hypertension: Holding anti-hypertensives due to hypotension. Possibly change to ACEi prior to discharge depending on resolution of leg edema. (12) Hypothyroid: Chronic. Stable - TSH 1.49 Patient alternates 75mcg and 50mcg dosing -- continue home schedule through OG (13) Allergic rhinitis due to allergen: Continue home montelukast 10mg, fexofenadine 180mg (14) Steroid-induced hyperglycemia: Insulin SS for steroid induced hyperglycemia. Appreciate pharmacy management. HbA1C 5.9 (15) DVT prophylaxis: Xarelto on hold due to alveolar hemorrhage. Heparin SQ 5000 units BID Admission and Anticipated Discharge Date Admission Date: April 27, 2019 Unclear discharge date at this time. Subjective Much improved since yesterday. Remembers my name from before she was intubated but doesn't really remember much that happened. Think she has been here for 2 days (it has been 7 at this point). She denies any respiratory distress. No chest pain or hemoptysis. Has not yet passed urine since hunter removed in ICU. Review of Systems Review of Systems: All systems reviewed & are unremarkable except as noted in HPI & below Physical Exam Constitutional: well developed and + frail appearing; + not well nourished and no acute distress Eyes: + anicteric sclerae; normal pupil size ENMT: external ear and nose normal, oropharynx normal Neck: trachea midline, no thyromegaly Respiratory: normal respiratory effort and able to speak in complete sentences; no respiratory distress, no labored breathing, no retractions, does not use accessory muscles and no cough Auscultation: + diminished lung sounds (bibasal); no rales, no rhonchi and no wheezes Cardiovascular: Rate/Rhythm: regular rate and + irregularly irregular Heart Sounds: no murmur Vessels: no JVD Extremities: + edema (1+ b/l LE, wrinkles, much improved since admission) Gastrointestinal (Abdomen): Inspection/Auscultation: + abdomen distended and normal bowel sounds Percussion/Palpation: abdomen soft; abdomen nontender, no guarding and abdomen not rigid Musculoskeletal: no cyanosis or clubbing, extremities motor strength 5/5 Skin: no rashes, warm and dry Neurologic: moves all extremities, awake and + confused (mild); no focal motor deficits Speech / Cognition: normal speech Motor/Sensory: no tremor, no pronator drift and no sensory deficit Psychiatric: Orientation: alert, oriented to person and oriented to place; + not oriented to time Lymphatic: no cervical or axillary lymphadenopathy Results & Data ([facility]) Vital Signs (Past 12 Hours) Vital Signs Temp Pulse Pulse Resp BP BP Pulse Ox 05/04/19 16:45 87 05/04/19 14:57 36.4 C L 80 16 112/65 95 05/04/19 09:50 94 H 20 114/76 92 05/04/19 08:50 96 H 25 H 119/68 95 05/04/19 07:50 98 H 21 128/73 94 05/04/19 07:04 90 18 94 PG Care Time/CCT Total # of Minutes Spent Total Time Spent with Patient: Total time spent is greater than 50% in coordinat ion of care (as documented) at patient's floor/unit and/or counseling patient: Coding Level of Care Code 59245 Subseq Hosp Care Lvl 3 Diagnoses Metabolic encephalopathy G93.41 Metabolic alkalosis E87.3 Acute and chronic respiratory failure with hypoxia J96.21 Cardiogenic shock R57.0 Inflammation of lung J18.9 Pulmonary alveolar hemorrhage R04.89 Iron deficiency anemia D50.9 Iron deficiency anemia type: unspecified iron deficiency Hypervolemia E87.79 Hypervolemia type: other Atrial fibrillation I48.11 Atrial fibrillation type: longstanding persistent Peripheral edema R60.9 Hypertension I10 Hypertension type: essential hypertension Hypothyroid E03.9 Hypothyroidism type: unspecified Allergic rhinitis due to allergen J30.9 Allergic rhinitis seasonality: unspecified Allergic rhinitis trigger: unspecified Steroid-induced hyperglycemia R73.9; [id number] DVT prophylaxis Z29.9 (1) Atrial fibrillation Atrial fibrillation type: longstanding persistent Qualified Code(s): I48.11 - Longstanding persistent atrial fibrillation (2) Hypothyroid Hypothyroidism type: unspecified Qualified Code(s): E03.9 - Hypothyroidism, unspecified (3) Iron deficiency anemia Iron deficiency anemia type: unspecified iron deficiency Qualified Code(s): D50.9 - Iron deficiency anemia, unspecified (4) Allergic rhinitis due to allergen Allergic rhinitis seasonality: unspecified Allergic rhinitis trigger: unspecified Qualified Code(s): J30.9 - Allergic rhinitis, unspecified (5) Hypertension Hypertension type: essential hypertension Qualified Code(s): I10 - Essential (primary) hypertension (6) Hypervolemia Hypervolemia type: other Qualified Code(s): E87.79 - Other fluid overload
[2019-05-05] MEDS: ACETAMINOPHEN 325 MG TAB PO PRN ×2 (03:51→13:17)
[2019-05-05] MEDS: LEVOTHYROXINE SODIUM 75 MCG TABLET NG SCH (06:10)
[2019-05-05] MEDS: methylPREDNISolone 60 MG in SYRINGE 0 ML IV SCH (06:11)
[2019-05-05 06:57] LABS: BUN Creatinine Ratio 53.6 (10-20); Calcium 8.9 mg/dl (8.5-10.1); Est GFR (African American) 90.2; Est GFR (Non-African American) 77.8; Magnesium 2.2 mg/dl (1.8-2.4); Phosphorus 3.3 mg/dl (2.5-4.9); Potassium 3.2 mmol/L (3.5-5.1)
[2019-05-05] MEDS: BUDESONIDE 0.5 MG/2 ML VIAL (PULMICORT) INH SCH ×2 (07:17→19:47)
[2019-05-05] MEDS ORDERED: INSULIN HUMAN NPH SC SCH ×2 (08:00→17:00)
--- NOTE | 2019-05-05 08:00 | Pharmacy Report ---
Pharmacy Glycemic Short Note 2 - Date of Service May 05, 2019 - Glycemic Short BSG Results (Last 24 hours): 05/04/19 05/04/19 05/04/19 11:42 16:43 20:01 Glucose POC Glucose 190 H 151 H 223 H 05/05/19 05/05/19 05/05/19 03:02 05:57 07:30 Glucose 176 H POC Glucose 176 H 175 H OUTPATIENT ANTIDIABETIC REGIMEN: * N/A, no prior dx of DM however last A1c 5.9 01/2019 consistent with underlying insulin resistance ASSESSMENT: * Patient transitioned off of insulin gtt yesterday morning - has received 31 units of SC insulin since that time * 0 units of basal insulin * 31 units of prandial/correctional insulin * BSGs ranging 120-223 mg/dL over the past 24hrs * -Tightened to weight-based/stress of 3 CF and CR yesterday - will continue * Fasting BSG this morning of 175 mg/dL - will give 15 units of NPH this AM * Methylprednisolone 60 mg IV q6h stopped this morning after 0600 dose - prednisone 50 mg PO daily to start tomorrow morning PLAN FOR INPATIENT GLYCEMIC CONTROL: * Basal - add * NPH 15 units SC given this morning * Bolus insulin - continue (weight-based stress of 3) * NovoLog per scale ACHS or Q6hrs while NPO * Goal Range: Low 120 mg/dL - High 160 mg/dL * Correction Factor: 20 mg/dL/unit * Nutritional / Prandial insulin per carb ratio of 1 unit per 7 grams CHO consumed PLAN FOR DISCHARGE: * Patient does not currently take any medications for diabetes - HbA1c of 5.9% * Patient may benefit from once daily NPH insulin if discharged on high doses of prednisone * Will continue to follow steroid taper and corresponding insulin needs
[2019-05-05] MEDS: INSULIN ASPART 100 UNITS/ML 3 ML PEN SC SCH ×4 (08:17→20:07)
[2019-05-05] MEDS: HEPARIN SOD 5,000 UNIT/0.5 ML VIAL SQ SCH ×2 (08:18→20:06)
[2019-05-05] MEDS: POTASSIUM CHLORIDE 20 MEQ TABCR PO SCH ×2 (08:20→13:18)
[2019-05-05] MEDS: METOPROLOL TARTRATE 25 MG TAB PO SCH ×2 (08:20→20:03)
[2019-05-05] MEDS: FUROSEMIDE 20 MG TAB PO SCH (08:20)
[2019-05-05] MEDS: DAPSONE 25 MG TAB PO SCH ×2 (08:21→20:03)
[2019-05-05] MEDS: DICLOFENAC SOD 1% GEL 100 GM TUBE EXT SCH ×4 (08:22→20:03)
[2019-05-05] MEDS ORDERED: acetaZOLAMIDE 250 MG in SYRINGE 0 ML IV SCH (09:00)
--- NOTE | 2019-05-05 09:49 | Pulmonology Progress Note ---
Date of Service May 05, 2019 Assessment & Plan (1) Acute and chronic respiratory failure with hypoxia: Impression: 78-year-old female with hypoxemic respiratory failure and diffuse pulmonary infiltrates with scant hemoptysis. Bronchoscopy with BAL performed 04/30/2019 was consistent with alveolar hemorrhage which again may be secondary to anticoagulation in conjunction with elevated diastolic filling pressures or primary pulmonary vasculitis although previous serological evaluation was negative. She was intubated 04/30/2023 hypoxemic respiratory failure. Recommendations: 1. Alveolar hemorrhage: Holding anticoagulation at this point time. Transitioning to 50 mg of p.o. prednisone tomorrow await repeat serological evaluation. Urinalysis did show persistent evidence of hematuria although the sample was a Montez catheterized specimen and the protein was negative. Suspect her leukocytosis is related to concomitant steroid administration. No growth on [facility] cultures. Anticipate continued systemic steroid with a slow taper over the next several months and close follow-up with Dr. bates. Continue dapsone PJP prophylaxis. Will repeat INR today. I have stopped the acetazolamide as her bicarb is trending down nicely. Continue p.o. Lasix. Echo on 04/28/2019 demonstrates normal ejection fraction with mild left ventricular hypertrophy. Severe biatrial dilation and mild mitral regurgitation. Right ventricle was mildly dilated. 2. Hypoxemic respiratory failure: Continue to wean oxygen as tolerated. Maintain saturations at or above 88%. 3. History of asthma, I do not believe that the current infiltrates are related to asthma. She has never demonstrated eosinophilia. She does not appear bronchospastic currently. 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 Continue budesonide and as needed albuterol (2) Acute diastolic CHF (congestive heart failure): (3) Abnormal CT scan of lung: Subjective Patient is lying in bed with no shortness of breath. She says that she was not able to get out of bed today because the "staff is busy". She denies any chest pain. She does have a little bit of a cough but denies any hemoptysis. No nausea or vomiting. Physical Exam Constitutional: well developed Eyes: PERRL Neck: trachea midline, no thyromegaly Respiratory: normal respiratory effort, lungs clear to auscultation Cardiovascular: Rate/Rhythm: regular rate and + irregularly irregular Heart Sounds: normal S1 and normal S2; no murmur Extremities: + edema Gastrointestinal (Abdomen): normal bowel sounds, soft, nontender, no hepatosplenomegaly Musculoskeletal: Extremities: extremities normal to inspection Skin: no rashes, warm and dry Lymphatic: no cervical lymphadenopathy Results & Data ([facility]) Vital Signs (Past 12 Hours) Vital Signs Temp Pulse Pulse Pulse Resp BP BP 05/05/19 07:45 97.3 F L 80 16 150/77 H 05/05/19 07:19 93 H 18 05/05/19 04:00 97.7 F 80 20 144/77 H 05/05/19 00:00 81 05/04/19 22:47 97.5 F L 67 18 115/71 Pulse Ox 05/05/19 07:45 98 05/05/19 07:19 95 05/05/19 04:00 96 05/05/19 00:00 05/04/19 22:47 95 PG Care Time/CCT Total # of Minutes Spent Total Time Spent with Patient: Total time spent is greater than 50% in coordination of care (as documented) at patient's floor/unit and/or counseling patient: Coding Level of Care Code 38186 Subseq Hosp Care Lvl 2 Diagnoses Acute and chronic respiratory failure with hypoxia J96.21 Acute diastolic CHF (congestive heart failure) I50.[address] scan of lung R91.8
[2019-05-05 10:23] LABS: INR 1.3 (0.9-1.1); Prothrombin Time 13.3 Seconds (9.0-12.0)
[2019-05-05] MEDS: MAGNESIUM OXIDE 400 MG TAB NG SCH (10:37)
--- NOTE | 2019-05-05 21:09 | Hospitalist Progress Note ---
Date of Service May 05, 2019 Assessment & Plan (1) Acute and chronic respiratory failure with hypoxia: acute component - severe acute diastolic CHF along with probable inflammatory lung disease. cannot rule out pulmonary alveolar hemorrhage (blood on bronch may have been 2nd to pulmonary edema or due to chronic anticoagulation). there was suspicion of inflammatory lung disease on a prior admission in 02/2019 and was placed on prednisone then. had remained on prednisone since that time and managed by Dr Anderson. despite concerns of inflammatory lung disease her entire previous work-up -- labs, bronch with biopsy, etc never led to official diagnosis. acutely we have not found any specific bacterial pathogens on culture or otherwise. she has improved with diuresis and high-dose IV steroids. latter being tapered by pulmonary. at discharge will need to remain on prednisone and then f/u with Dr Anderson repeat labs to rule out inflammatory lung conditions - pending cont NC O2 (2) Acute diastolic CHF (congestive heart failure): marked 15+ liter diuresis while here now on PO lasix 20mg daily had received diamox for contraction alkalosis - diamox now stopped suspect chronic prednisone use led to fluid retention cannot rule out other factors leading to decompensated diastolic CHF looks euvolemic today (3) Inflammation of lung: concern for such see above 02/08/19 ESR was >90 now <20 [id number] remains on prednisone as recommended by pulmonary weaning such albeit slowly (4) Pulmonary alveolar hemorrhage: as seen on bronch this admission systemic anticoagulation on hold (xarelto). due to pulmonary edema? chronic xarelto use? other? (5) Hypothyroid: TSH wnl cont synthroid (6) Atrial fibrillation: rates controlled anticoagulation on hold (7) Iron deficiency anemia: 04/29/19 ferritin in the 50s follow Hb 9.2 likely deserves ferrous sulfate supplementation to improve her Hb stool recently heme negative (8) Steroid-induced hyperglycemia: pharmacy managing BSGs (9) Metabolic encephalopathy: 2nd to hypoxia, etc ongoing but improved based on reports (10) DVT prophylaxis: heparin SC was in personal care prior to admission but may need SNF level at discharge progressing cont PT/OT Admission and Anticipated Discharge Date Admission Date: April 27, 2019 Subjective patient overall feeling much better has cough but no hemoptysis and no wheezing appetite improved asks multiple questions about "what happened to her" and "how do we prevent this from happening again?" Review of Systems Constitutional: no fever and no chills Respiratory: no hemoptysis and no sputum production Cardiovascular: no chest pain Gastrointestinal: no abdominal pain Physical Exam Constitutional: no acute distress and no altered mental status ENMT: external ear and nose normal, oropharynx normal Respiratory: no respiratory distress Auscultation: + rales (fine, bases only); no wheezes Cardiovascular: Rate/Rhythm: regular rate and + irregularly irregular Heart Sounds: normal S1 and normal S2; no murmur Vessels: posterior tibial pulses present and dorsalis pedis pulses present; no JVD Extremities: no edema Gastrointestinal (Abdomen): normal bowel sounds, soft, nontender, no hepatosplenomegaly Psychiatric: Orientation: alert, oriented to person and oriented to place Results & Data ([facility]) Vital Signs (Past 12 Hours) Vital Signs Temp Pulse Pulse Pulse Resp BP BP 05/05/19 19:47 86 18 05/05/19 19:26 36.4 C L 94 H 20 108/66 05/05/19 17:11 74 05/05/19 15:41 36.6 C 88 20 133/77 05/05/19 12:10 79 05/05/19 11:46 36.4 C L 80 18 129/84 Pulse Ox 05/05/19 19:47 95 05/05/19 19:26 95 05/05/19 17:11 05/05/19 15:41 96 05/05/19 12:10 05/05/19 11:46 95 Laboratory Results Laboratory Results - last 24 hr 05/05/19 05/05/19 05/05/19 03:02 05:57 07:30 PT INR Sodium 141 Potassium 3.2 L Chloride 105 Carbon Dioxide 27 Anion Gap 9.0 BUN 39 H Creatinine 0.73 Est Cr Clr Drug Dosing 63.0 Est GFR ( Amer) 90.2 Est GFR (Non-Af Amer) 77.8 BUN/Creatinine Ratio 53.6 H Glucose 176 H POC Glucose 176 H 175 H Calcium 8.9 Phosphorus 3.3 Magnesium 2.2 05/05/19 05/05/19 05/05/19 09:59 11:27 16:25 PT 13.3 H INR 1.3 H Sodium Potassium Chloride Carbon Dioxide Anion Gap BUN Creatinine Est Cr Clr Drug Dosing Est GFR ( Amer) Est GFR (Non-Af Amer) BUN/Creatinine Ratio Glucose POC Glucose 179 H 157 H Calcium Phosphorus Magnesium 05/05/19 20:07 PT INR Sodium Potassium Chloride Carbon Dioxide Anion Gap BUN Creatinine Est Cr Clr Drug Dosing Est GFR ( Amer) Est GFR (Non-Af Amer) BUN/Creatinine Ratio Glucose POC Glucose 184 H Calcium Phosphorus Magnesium PG Care Time/CCT Total # of Minutes Spent Total Time Spent with Patient: Total time spent is greater than 50% in coordination of care (as documented) at patient's floor/unit and/or counseling patient: Coding Level of Care Code 18987 Subseq Hosp Care Lvl 2 Diagnoses Acute and chronic respiratory failure with hypoxia J96.21 Acute diastolic CHF (congestive heart failure) I50.31 Inflammation of lung J18.9 Pulmonary alveolar hemorrhage R04.89 Hypothyroid E03.9 Hypothyroidism type: unspecified Atrial fibrillation I48.11 Atrial fibrillation type: longstanding persistent Iron deficiency anemia D50.9 Iron deficiency anemia type: unspecified iron deficiency Steroid-induced hyperglycemia R73.9; T38.0X5A Metabolic encephalopathy G93.41 DVT prophylaxis Z29.9 (1) Hypothyroid Hypothyroidism type: unspecified Qualified Code(s): E03.9 - Hypothyroidism, unspecified (2) Atrial fibrillation Atrial fibrillation type: longstanding persistent Qualified Code(s): I48.11 - Longstanding persistent atrial fibrillation (3) Iron deficiency anemia Iron deficiency anemia type: unspecified iron deficiency Qualified Code(s): D50.9 - Iron deficiency anemia, unspecified
[2019-05-06] MEDS: LEVOTHYROXINE SODIUM 50 MCG TABLET NG SCH (06:08)
[2019-05-06 07:00] LABS: BUN Creatinine Ratio 59.4 (10-20); Calcium 8.1 mg/dl (8.5-10.1); Creatinine Clr Calc Pharmacy 84.8 ml/min; Est GFR (African American) 102.7; Est GFR (Non-African American) 88.6; Magnesium 2.2 mg/dl (1.8-2.4); Potassium 3.1 mmol/L (3.5-5.1)
[2019-05-06 07:02] LABS: Phosphorus 2.5 mg/dl (2.5-4.9)
[2019-05-06] MEDS: BUDESONIDE 0.5 MG/2 ML VIAL (PULMICORT) INH SCH ×2 (07:17→19:22)
[2019-05-06] MEDS: predniSONE 50 MG TAB PO SCH (07:53)
[2019-05-06] MEDS: METOPROLOL TARTRATE 25 MG TAB PO SCH ×2 (07:53→20:02)
[2019-05-06] MEDS: FUROSEMIDE 20 MG TAB PO SCH (07:53)
[2019-05-06] MEDS: HEPARIN SOD 5,000 UNIT/0.5 ML VIAL SQ SCH ×2 (07:54→21:07)
[2019-05-06] MEDS: MAGNESIUM OXIDE 400 MG TAB NG SCH (07:54)
[2019-05-06] MEDS: INSULIN ASPART 100 UNITS/ML 3 ML PEN SC SCH ×4 (07:55→21:08)
[2019-05-06] MEDS: DAPSONE 25 MG TAB PO SCH ×2 (07:55→20:04)
[2019-05-06] MEDS: INSULIN HUMAN NPH SC SCH (07:57)
[2019-05-06] MEDS: DICLOFENAC SOD 1% GEL 100 GM TUBE EXT SCH ×4 (07:58→20:05)
--- NOTE | 2019-05-06 14:35 | Pulmonology Progress Note ---
Date of Service May 06, 2019 Assessment & Plan (1) Acute and chronic respiratory failure with hypoxia: Impression: 78-year-old female with hypoxemic respiratory failure and diffuse pulmonary infiltrates with scant hemoptysis. Bronchoscopy with BAL performed 04/30/2019 was consistent with alveolar hemorrhage which again may be secondary to anticoagulation in conjunction with elevated diastolic filling pressures or primary pulmonary vasculitis although previous serological evaluation was negative. She was intubated 04/30/2023 hypoxemic respiratory failure. Recommendations: 1. Alveolar hemorrhage: Holding anticoagulation at this point time. Continue 50 mg PO prednisone for 5 days and then wean to 40 mg for 5 days, then 30 mg until seen by pulmonary. Urinalysis did show persistent evidence of hematuria although the sample was a [facility] catheterized specimen and the protein was negative. Suspect her leukocytosis is related to concomitant steroid administration. No growth on [facility] cultures. Anticipate continued systemic steroid with a slow taper over the next several months and close follow-up with Dr. bates. Continue dapsone PJP prophylaxis. INR 05/05 is 1.3. Continue p.o. Lasix. Echo on 04/28/2019 demonstrates normal ejection fraction with mild left ventricular hypertrophy. Severe biatrial dilation and mild mitral regurgitation. Right ventricle was mildly dilated. 2. Hypoxemic respiratory failure: Continue to wean oxygen as tolerated. Maintain saturations at or above 88%. 3. History of asthma, I do not believe that the current infiltrates are related to asthma. She has never demonstrated eosinophilia. She does not appear bronchospastic currently. 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 Continue budesonide and as needed albuterol Continue PT/OT. Pulm will follow peripherally. Please call with questions. Okay to discharge per hospitalist discretion. (2) Acute diastolic CHF (congestive heart failure): (3) Abnormal CT scan of lung: Subjective Patient sleeping when I came in the room. Cough is minimal. No complaints of pain. Appetite decent. No fevers. Physical Exam Constitutional: well developed Eyes: PERRL Neck: trachea midline, no thyromegaly Respiratory: normal respiratory effort, lungs clear to auscultation Cardiovascular: Rate/Rhythm: regular rate and + irregularly irregular Heart Sounds: normal S1 and normal S2; no murmur Extremities: + edema Gastrointestinal (Abdomen): normal bowel sounds, soft, nontender, no h epatosplenomegaly Musculoskeletal: Extremities: extremities normal to inspection Skin: no rashes, warm and dry Lymphatic: no cervical lymphadenopathy Results & Data ([facility]) Vital Signs (Past 12 Hours) Vital Signs Temp Pulse Pulse Pulse Resp BP Pulse Ox 05/06/19 11:18 97.7 F 78 20 111/71 96 05/06/19 07:33 97.7 F 69 20 134/82 99 05/06/19 07:17 73 18 97 05/06/19 07:09 68 PG Care Time/CCT Total # of Minutes Spent Total Time Spent with Patient: Total time spent is greater than 50% in coordination of care (as documented) at patient's floor/unit and/or counseling patient: Coding Level of Care Code 73013 Subseq Hosp Care Lvl 2 Diagnoses Acute and chronic respiratory failure with hypoxia J96.21 Acute diastolic CHF (congestive heart failure) I50.[address] scan of lung R91.8
--- NOTE | 2019-05-06 14:41 | Pharmacy Report ---
Pharmacy Glycemic Short Note 2 - Date of Service May 06, 2019 - Glycemic Short BSG Results (Last 24 hours): 05/05/19 05/05/19 05/06/19 16:25 20:07 05:55 Glucose 92 POC Glucose 157 H 184 H 05/06/19 05/06/19 07:38 11:31 Glucose POC Glucose 95 114 H OUTPATIENT ANTIDIABETIC REGIMEN: * N/A, no prior dx of DM however last A1c 5.9 01/2019 consistent with underlying insulin resistance ASSESSMENT: * 37 units of insulin administered yesterday * 15 units of basal insulin (NPH in AM with IV methylprednisolone 60 mg) * 22 units of prandial/correctional insulin * BSGs ranging 157-184 mg/dL yesterday * Fasting BSG this morning of 95 mg/dL - will continue NPH 15 units to be given with prednisone 50 mg daily * Lunch BSG of 114 mg/dL - will loosen Novolog parameters PLAN FOR INPATIENT GLYCEMIC CONTROL: * Basal - continue * NPH 15 units SC given this morning * Bolus insulin - continue (weight-based stress of 3) * NovoLog per scale ACHS or Q6hrs while NPO * Goal Range: Low 110 mg/dL - High 150 mg/dL * Correction Factor: 30 mg/dL/unit * Nutritional / Prandial insulin per carb ratio of 1 unit per 10 grams CHO consumed PLAN FOR DISCHARGE: * Patient does not currently take any medications for diabetes - HbA1c of 5.9% * Unlikely that she will require initiation of antidiabetic treatment outpatient unless steroids are too be continued * If patient is to be discharged on higher doses of steroids, then I would recommend either: * Initiation of once daily NPH insulin given with prednisone. At this point - NPH 15 units SC daily may be appropriate at current dose of prednisone 50 mg daily - dose will likely need to be adjusted as steroids are tapered. Will continue to follow insulin needs while inpatient. OR * Initiation of metformin 500 mg XR PO daily with largest meal of day - could be titrated up further by 500 mg at weekly intervals up to 1000 mg PO BIDM based on BSGs and if steroids are continued long-term.
--- NOTE | 2019-05-06 14:56 | Hospitalist Progress Note ---
Date of Service May 06, 2019 Assessment & Plan (1) Acute and chronic respiratory failure with hypoxia: acute component - severe acute diastolic CHF along with probable inflammatory lung disease. cannot rule out pulmonary alveolar hemorrhage (blood on bronch may have been 2nd to pulmonary edema or due to chronic anticoagulation). there was suspicion of inflammatory lung disease on a prior admission in 02/2019 and was placed on prednisone then. had remained on prednisone since that time and managed by Dr Anderson. despite concerns of inflammatory lung disease her entire previous work-up -- labs, bronch with biopsy, etc never led to official diagnosis. acutely we have not found any specific bacterial pathogens on culture or otherwise. she has improved with diuresis and high-dose IV steroids. latter being tapered by pulmonary. at discharge will need to remain on prednisone and then f/u with Dr Anderson repeat labs to rule out inflammatory lung conditions - pending cont NC O2 -> Continue prednisone 50 mg x 5 days (Last day: 05/10/2019), then taper to 40 mg PO daily x 5 days, etc. Will need to follow up with Dr. Anderson in office. (2) Acute diastolic CHF (congestive heart failure): marked 15+ liter diuresis while here had received diamox for contraction alkalosis - diamox now stopped suspect chronic prednisone use led to fluid retention cannot rule out other factors leading to decompensated diastolic CHF looks euvolemic today. Continue Lasix 20 mg PO daily. (3) Inflammation of lung: concern for such see above 02/08/19 ESR was >90 now <20 [id number] remains on prednisone as recommended by pulmonary weaning such albeit slowly (4) Pulmonary alveolar hemorrhage: as seen on bronch this admission systemic anticoagulation on hold (xarelto). due to pulmonary edema? chronic xarelto use? other? (5) Hypothyroid: TSH wnl cont synthroid (6) Atrial fibrillation: rates controlled anticoagulation on hold (7) Iron deficiency anemia: 04/29/19 ferritin in the 50s follow Hb 9.2 likely deserves ferrous sulfate supplementation to improve her Hb stool recently heme negative (8) Steroid-induced hyperglycemia: pharmacy managing BSGs (9) Metabolic encephalopathy: 2nd to hypoxia, etc ongoing but improved based on reports (10) DVT prophylaxis: heparin SC Q12h was in personal care prior to admission but may need SNF level at discharge progressing cont PT/OT Admission and Anticipated Discharge Date Admission Date: April 27, 2019 Subjective She is not feeling well today. Tired. No change in her shortness of breath. Not much cough. Reports no fevers/chills, chest pain, abdominal pain, nausea, or vomiting. Physical Exam Constitutional: WD/WN, vitals as above Eyes: EOM intact bilaterally; no conjunctival abnormality ENMT: external ear and nose normal, oropharynx normal Neck: trachea midline, no thyromegaly normal visual inspection Respiratory: normal respiratory effort, lungs clear to auscultation no respiratory distress Cardiovascular: RRR, no murmur, no edema Gastrointestinal (Abdomen): Inspection/Auscultation: abdomen normal to inspection; abdomen not distended Musculoskeletal: no cyanosis or clubbing, extremities motor strength 5/5 Skin: no rashes, warm and dry Neurologic: moves all extremities and awake Psychiatric: Orientation: alert, oriented to person and cooperative Results & Data ([facility]) Vital Signs (Past 12 Hours) Vital Signs Temp Pulse Pulse Pulse Resp BP Pulse Ox 05/06/19 11:18 36.5 C 78 20 111/71 96 05/06/19 07:33 36.5 C 69 20 134/82 99 05/06/19 07:17 73 18 97 05/06/19 07:09 68 PG Care Time/CCT Total # of Minutes Spent Total Time Spent with Patient: Total time spent is greater than 50% in coordination of care (as documented) at patient's floor/unit and/or counseling patient: Coding Level of Care Code 90457 Subseq Hosp Care Lvl 2 Diagnoses Acute and chronic respiratory failure with hypoxia J96.21 Acute diastolic CHF (congestive heart failure) I50.31 Inflammation of lung J18.9 Pulmonary alveolar hemorrhage R04.89 Hypothyroid E03.9 Hypothyroidism type: unspecified Atrial fibrillation I48.11 Atrial fibrillation type: longstanding persistent Iron deficiency anemia D50.9 Iron deficiency anemia type: unspecified iron deficiency Steroid-induced hyperglycemia R73.9; T38.0X5A Metabolic encephalopathy G93.41 DVT prophylaxis Z29.9 (1) Hypothyroid Hypothyroidism type: unspecified Qualified Code(s): E03.9 - Hypothyroidism, unspecified (2) Atrial fibrillation Atrial fibrillation type: longstanding persistent Qualified Code(s): I48.11 - Longstanding persistent atrial fibrillation (3) Iron deficiency anemia Iron deficiency anemia type: unspecified iron deficiency Qualified Code(s): D50.9 - Iron deficiency anemia, unspecified
[2019-05-06] MEDS: POTASSIUM CHLORIDE 10 MEQ TABCR PO SCH (20:03)
[2019-05-06] MEDS: ACETAMINOPHEN 325 MG TAB PO PRN (23:51)
[2019-05-07] MEDS: ACETAMINOPHEN 325 MG TAB PO PRN (05:47)
[2019-05-07] MEDS: LEVOTHYROXINE SODIUM 75 MCG TABLET NG SCH (05:48)
[2019-05-07 06:55] LABS: ANCA Screen Negative (Negative); Anti-Glom Basement Antibody <1.0 AI (<1.0); Myeloperoxidase Ab <1.0 AI (<1.0); Proteinase-3 AB <1.0 AI (<1.0)
[2019-05-07 07:48] LABS: Hematocrit (blood only) 34.9 % (37-47); Hemoglobin 10.4 g/dL (12.0-16.0); Mean Corpuscular Hemoglobin 23.9 pg (25-34); Mean Corpuscular Hgb Conc 29.8 g/dL (32-36); Mean Platelet Volume 10.3 fL (7.4-10.4); Platelet Count 276 K/uL (130-400); RDW Coefficient of Variation 16.9 % (11.5-14.5); RDW Standard Deviation 48.8 fL (36.4-46.3); Red Blood Count 4.36 M/uL (4.2-5.4)
[2019-05-07] MEDS: BUDESONIDE 0.5 MG/2 ML VIAL (PULMICORT) INH SCH (07:50)
[2019-05-07] MEDS: DAPSONE 25 MG TAB PO SCH (08:04)
[2019-05-07] MEDS: METOPROLOL TARTRATE 25 MG TAB PO SCH (08:05)
[2019-05-07] MEDS: POTASSIUM CHLORIDE 10 MEQ TABCR PO SCH (08:05)
[2019-05-07] MEDS: predniSONE 50 MG TAB PO SCH (08:06)
[2019-05-07] MEDS: HEPARIN SOD 5,000 UNIT/0.5 ML VIAL SQ SCH (08:06)
[2019-05-07] MEDS: FUROSEMIDE 20 MG TAB PO SCH (08:06)
[2019-05-07] MEDS: MAGNESIUM OXIDE 400 MG TAB NG SCH (08:06)
[2019-05-07] MEDS: INSULIN ASPART 100 UNITS/ML 3 ML PEN SC SCH ×2 (08:07→12:43)
[2019-05-07] MEDS: DICLOFENAC SOD 1% GEL 100 GM TUBE EXT SCH ×2 (08:07→12:44)
[2019-05-07] MEDS: INSULIN HUMAN NPH SC SCH (08:08)
[2019-05-07 08:16] LABS: BUN Creatinine Ratio 51.7 (10-20); Calcium 8.2 mg/dl (8.5-10.1); Creatinine Clr Calc Pharmacy 89.8 ml/min; Est GFR (African American) 104.6; Est GFR (Non-African American) 90.2; Magnesium 2.1 mg/dl (1.8-2.4); Phosphorus 2.1 mg/dl (2.5-4.9); Potassium 3.5 mmol/L (3.5-5.1)
--- NOTE | 2019-05-07 09:35 | Hospitalist Progress Note ---
Date of Service May 07, 2019 Assessment & Plan (1) Acute and chronic respiratory failure with hypoxia: acute component - severe acute diastolic CHF along with probable inflammatory lung disease. cannot rule out pulmonary alveolar hemorrhage (blood on bronch may have been 2nd to pulmonary edema or due to chronic anticoagulation). there was suspicion of inflammatory lung disease on a prior admission in 02/2019 and was placed on prednisone then. had remained on prednisone since that time and managed by Dr Anderson. despite concerns of inflammatory lung disease her entire previous work-up -- labs, bronch with biopsy, etc never led to official diagnosis. acutely we have not found any specific bacterial pathogens on culture or otherwise. she has improved with diuresis and high-dose IV steroids. latter being tapered by pulmonary. at discharge will need to remain on prednisone and then f/u with Dr Anderson repeat labs to rule out inflammatory lung conditions - pending cont NC O2 (2) Acute diastolic CHF (congestive heart failure): marked 15+ liter diuresis while here now on PO lasix 20mg daily had received diamox for contraction alkalosis - diamox now stopped suspect chronic prednisone use led to fluid retention cannot rule out other factors leading to decompensated diastolic CHF looks euvolemic today (3) Inflammation of lung: concern for such see above 02/08/19 ESR was >90 now <20 [id number] remains on prednisone as recommended by pulmonary weaning such albeit slowly (4) Pulmonary alveolar hemorrhage: as seen on bronch this admission systemic anticoagulation on hold (xarelto). due to pulmonary edema? chronic xarelto use? other? (5) Hypothyroid: TSH wnl cont synthroid (6) Atrial fibrillation: rates controlled anticoagulation on hold (7) Iron deficiency anemia: 04/29/19 ferritin in the 50s follow Hb 9.2 likely deserves ferrous sulfate supplementation to improve her Hb stool recently heme negative (8) Steroid-induced hyperglycemia: pharmacy managing BSGs (9) Metabolic encephalopathy: 2nd to hypoxia, etc ongoing but improved based on reports (10) DVT prophylaxis: heparin SC was in personal care prior to admission but may need SNF level at discharge progressing cont PT/OT Admission and Anticipated Discharge Date Admission Date: April 27, 2019 Results & Data ([facility]) Vital Signs (Past 12 Hours) Vital Signs Temp Pulse Pulse Pulse Resp BP BP 05/07/19 07:50 82 16 05/07/19 07:49 36.6 C 79 18 111/71 05/07/19 07:08 79 05/07/19 04:00 36.7 C 75 20 129/64 05/07/19 00:55 67 05/06/19 23:57 36.5 C 71 20 118/70 Pulse Ox 05/07/19 07:50 98 05/07/19 07:49 98 05/07/19 07:08 05/07/19 04:00 95 05/07/19 00:55 05/06/19 23:57 97 PG Care Time/CCT Total # of Minutes Spent Total Time Spent with Patient: Total time spent is greater than 50% in coordination of care (as documented) at patient's floor/unit and/or counseling patient: Coding Diagnoses Acute and chronic respiratory failure with hypoxia J96.21 Acute diastolic CHF (congestive heart failure) I50.31 Inflammation of lung J18.9 Pulmonary alveolar hemorrhage R04.89 Hypothyroid E03.9 Hypothyroidism type: unspecified Atrial fibrillation I48.11 Atrial fibrillation type: longstanding persistent Iron deficiency anemia D50.9 Iron deficiency anemia type: unspecified iron deficiency Steroid-induced hyperglycemia R73.9; T38.0X5A Metabolic encephalopathy G93.41 DVT prophylaxis Z29.9 (1) Hypothyroid Hypothyroidism type: unspecified Qualified Code(s): E03.9 - Hypothyroidism, unspecified (2) Atrial fibrillation Atrial fibrillation type: longstanding persistent Qualified Code(s): I48.11 - Longstanding persistent atrial fibrillation (3) Iron deficiency anemia Iron deficiency anemia type: unspecified iron deficiency Qualified Code(s): D50.9 - Iron deficiency anemia, unspecified
--- NOTE | 2019-05-07 13:03 | Pharmacy Report ---
Pharmacy Glycemic Short Note 2 - Date of Service May 07, 2019 - Glycemic Short BSG Results (Last 24 hours): 05/06/19 05/06/19 05/07/19 16:44 20:30 07:25 Glucose 84 POC Glucose 107 H 107 H 05/07/19 05/07/19 07:37 11:46 Glucose POC Glucose 93 102 H OUTPATIENT ANTIDIABETIC REGIMEN: * N/A, no prior dx of DM however last A1c 5.9 01/2019 consistent with underlying insulin resistance ASSESSMENT: 05/07 * Patient is currently receiving an average of 33 units of insulin per day * 15 units of basal insulin * 18 units of prandial/correctional insulin * BSGs ranging 93-107 over the past 24hrs * Risk factors for insulin resistance are CONSTANT over the past 24hrs * Steroid dosing unchanged at prednisone 50 mg daily * Anticipating insulin regimen will need decreased for the next 24hrs d/t : * BSGs trending downwards throughout the day and requiring minimal Novolog on top of NPH -> therefore will remove CR 05/06 * 37 units of insulin administered yesterday * 15 units of basal insulin (NPH in AM with IV methylprednisolone 60 mg) * 22 units of prandial/correctional insulin * BSGs ranging 157-184 mg/dL yesterday * Fasting BSG this morning of 95 mg/dL - will continue NPH 15 units to be given with prednisone 50 mg daily * Lunch BSG of 114 mg/dL - will loosen Novolog parameters PLAN FOR INPATIENT GLYCEMIC CONTROL: * Basal - continue * NPH 15 units SC given this morning * Bolus insulin - REMOVE CR * NovoLog per scale ACHS or Q6hrs while NPO * Goal Range: Low 110 mg/dL - High 150 mg/dL * Correction Factor: 30 mg/dL/unit PLAN FOR DISCHARGE: * Patient does not currently take any medications for diabetes - HbA1c of 5.9% * Unlikely that she will require initiation of antidiabetic treatment outpatient unless steroids are too be continued * If patient is to be discharged on higher doses of steroids, then I would recommend either: * Initiation of once daily NPH insulin given with prednisone. At this point - NPH 15 units SC daily may be appropriate at current dose of prednisone 50 mg daily - dose will likely need to be adjusted as steroids are tapered. Will continue to follow insulin needs while inpatient. OR * Initiation of glipizide 2.5 mg daily as sulfonylureas will target the postprandial effects of steroids. This is also one of the shorter-acting sulfonylureas and recommended over the long-acting sulfonylureas in elderly patients.
--- NOTE | 2019-05-07 16:13 | Discharge Summary ---
Date of Service date of admission - April 27, 2019 date of discharge - May 07, 2019 Admission HPI Per Admitting Provider 78 year old white female with PMH significant for atrial fibrillation (on Xarelto), depression/anxiety, asthma, hypothyroidism, GERD, allergic rhinitis presented to the emergency room for progressive shortness of breath and possible pneumonia failing outpatient treatment. Patient is a resident at [facility] since December of 2018. She states on Sunday a chest xray was performed secondary to her feeling under the weather and with a cough. She states she was given an antibiotic, which was levaquin, in addition to steroids and did not have any improvement. Patient was brought in with an oxygen saturation between 76-89% on 2L. The patient states she has noticed that she has been utilizing more than her usual 2-3 pillows to sleep at night, but states she believes this is due to her reflux. She states progressive shortness of breath with activity, worsening abdominal fullness and increased lower extremity edema. She notes not having much of an appetite secondary to abdominal fullness. The patient denies being on diuretics as an outpatient and denies any history of congestive heart failure in the past. She states she has a non-productive cough and albuterol inhaler has been ineffective. She states she has had some chills, but denies having a fever. Of note, the patient was just recently placed on oxygen in February for acute respiratory failure with hypoxia and possible pneumonia which failed outpatient treatment and multiple rounds of steroids. It was determined not to be a bacterial pneumonia at that time. She underwent a bronchoscopy and biopsy at that time which suggested ILD. She was discharged on 40mg daily prednisone. Pulmonary follow appears patient may have been volume overloaded at that time. She was brought in by ambulance for an oxygen saturation between 76-89% despite 2L via [place]. In the emergency room, patient placed on BiPAP with improvement of respiratory status, RR previously 32. Was given albuterol neb, Zosyn, Vancomycin. Labs reveal WBC 15K in the setting of recent steroid use, H/h 9.1/29.7. Plt 515. Na 137. K 3.7. Bun/Cr 24.5. Lactate 2.2. Negative flu swab. CXR with congestive failure, extensive bilateral airspace opacities which could represent interstitial edema and/or multifocal pneumonia. Small pleural effusions noted. Principal Diagnosis acute/chronic hypoxic respiratory failure Discharge Exam Constitutional no acute distress and no altered mental status ENMT external ear and nose normal, oropharynx normal Respiratory no respiratory distress Auscultation: + rales (fine, bases only); no wheezes Cardiovascular Rate/Rhythm: regular rate and + irregularly irregular Heart Sounds: normal S1 and normal S2; no murmur Vessels: posterior tibial pulses present and dorsalis pedis pulses present; no JVD Extremities: no edema Gastrointestinal (Abdomen) normal bowel sounds, soft, nontender, no hepatosplenomegaly Psychiatric Orientation: alert, oriented to person and oriented to place Discharge Data Allergies Allergy/AdvReac Type Severity Reaction Status Date / Time Sulfa (Sulfonamide Allergy Intermediate HIVES Verified 04/27/19 11:24 Antibiotics) cat dander Allergy Unknown ALLERGIES Verified 04/27/19 07:24 desloratadine Allergy Unknown Unknown Verified 04/27/19 07:24 house dust Allergy Unknown ALLERGIES Verified 04/27/19 07:24 mold Allergy Unknown Unknown Verified 04/27/19 07:24 amoxicillin AdvReac Mild GI SYMPTOMS Verified 04/27/19 07:24 atropine AdvReac Mild pain & Verified 04/27/19 07:24 diarrhea diphenoxylate AdvReac Mild pain & Verified 04/27/19 07:24 diarrhea moxifloxacin AdvReac Mild pain & Verified 04/27/19 07:24 diarrhea Cipro AdvReac Unknown GI SYMPTOMS Unverified 07/12/17 08:57 ciprofloxacin AdvReac Unknown GI SYMPTOMS Verified 04/27/19 07:24 clavulanic acid AdvReac Unknown GI SYMPTOMS Verified 04/27/19 07:24 erythromycin base AdvReac Unknown GI SYMPTOMS Verified 04/27/19 07:24 metronidazole AdvReac Unknown GI SYMPTOMS Verified 04/27/19 07:24 minocycline AdvReac Unknown GI SYMPTOMS Verified 04/27/19 07:24 Lagyvgu-Gmr-Pdn Reductase AdvReac Unknown Unknown Verified 04/27/19 07:24 Inhibitor Consultations [facility] Cardiology [facility] CHF Program Referral Pulmonology / Critical care - Pro Goodrich MD PT, OT Procedures Performed 1. Operation Date: 04/30/19 Bronchoscopy - Judd Goodrich MD 2. echocardiogram - EF 55-60%; normal LV wall motion; top-normal pulmonary pressures; mildly dilated IVC. Normal valve function. 3. intubation/mechanical ventilation. 4. numerous chest x-rays. 5. IJ central venous catheter. 6. arterial line. Hospital Course (1) Acute and chronic respiratory failure with hypoxia: At time of admission she required BIPAP for her severe acute respiratory failure. Acute component - suspected multifactorial etiology, with severe acute diastolic CHF along with probable inflammatory lung disease. Cannot rule out pulmonary alveolar hemorrhage contributing to acute respiratory failure (blood seen on bronch may have been 2nd to pulmonary edema or due to chronic anticoagulation). Unfortunately she required intubation/mechanical ventilation for her severe acute respiratory failure. Intubated - 04/30/2019. Extubated - 05/03/2019. There was suspicion of inflammatory lung disease on a prior admission in 02/2019 and she was placed on prednisone then. Had remained on prednisone since that time and managed by Dr Anderson. Despite concerns of inflammatory lung disease her entire previous work-up -- autoimmune labs, bronch with biopsy, etc never led to official diagnosis. Acutely we did not find any specific bacterial pathogens on cultures or otherwise. Acute respiratory failure improved with diuresis and high-dose IV steroids. Ultimately was weaned back to her usual amount of NC O2. At discharge will need to remain on prednisone and then f/u with Dr Anderson Repeat labs to rule out inflammatory lung conditions were negative (ANCAs, etc). She will remain on continuous NC O2 at discharge. (2) Acute diastolic CHF (congestive heart failure): Marked 15+ liter diuresis while here. Ultimately transitioned to PO lasix 20mg daily. Had received diamox for contraction alkalosis - diamox stopped prior to discharge. Suspect chronic prednisone use led to fluid retention pre-hospital. Cannot rule out other factors leading to decompensated diastolic CHF. Discharge weight - 75.8kg. Again will remain on lasix 20mg daily. Recommend follow-up with [facility] CHF clinic for ongoing surveillance of diastolic CHF. (3) Inflammation of lung: concern for such. see above in "acute/chronic hypoxic resp failure." 02/08/19 ESR was >90; now <20. work-up for inflammatory lung disease in February 2019 was negative and again this admission was negative. [id number] she remains on prednisone as recommended by pulmonary. She will require a very slow wean of the prednisone over weeks to months. Follow-up with Dr Zachary Anderson, [facility] Pulmonary, within 1 week of discharge advised. (4) Pulmonary alveolar hemorrhage: As seen on bronch this admission. Systemic anticoagulation was placed on hold (xarelto) following the bronch. Blood seen on bronch - due to pulmonary edema? Due to chronic xarelto use? Due to primary pulmonary vasculitis? Again work-up for primary inflammatory lung disease has been negative multiple times. The hemoptysis was transient and did not recur later in her stay. She will remain off anticoagulation for now. Follow-up with Dr Anderson in the [facility] pulmonary clinic within 1 week of discharge if possible. (5) Hypothyroid: TSH wnl cont synthroid (6) Atrial fibrillation: rates controlled in the days leading up to discharge. anticoagulation on hold as noted above. (7) Iron deficiency anemia: 04/29/19 ferritin in the 50s. Hb 10.4 on day of discharge. stool recently heme negative. continue ferrous sulfate supplementation post-discharge. (8) Steroid-induced hyperglycemia: Pharmacy provided glycemic control recommendations while hospitalized. At discharge she will remain on NPH once daily. The NPH can likely be weaned off as her steroids are weaned. Continue AC/HS BSGs upon transfer back SNF. (9) Metabolic encephalopathy: 2nd to hypoxia, ICU delirium, etc. This improved slowly during her stay. Total Time Total Time Spent Total Time Spent (In Minutes): 50 Total Time Includes: Examination of the Patient, Discharge Planning, Medication Reconciliation and Communication With Other Providers Discharge Plan Discharge Items Patient Disposition: Transfer Snf Fac Reason For Visit: CONGESTIVE HEART FAILURE,PNEUMONIA Discharge Diagnosis: 1. acute diastolic congestive heart failure - markedly improved; loss of at least 20-25 pounds of fluid weight 2. acute on chronic hypoxic respiratory failure - acute component due to #1, suspected inflammatory lung disease/interstitial lung disease. Required several days on ventilator. 3. severe deconditioning Activity: As commented below Activity Comment: gradually increase activities as tolerated Non-emergency contact: Primary Care Provider Call non-emergency contact if: you have any medication questions, your symptoms worsen and you have a fever Follow-up/Referrals: Luis Daniel Flores MD [Primary Care Provider] - Zachary Anderson DO [Physician] - 05/14/19 8:30 am (Please, follow up at [facility] Pulmonology Office with Dr. Anderson on SundayMay 13 at 8:30 am. *If you need to change this appointment, call the office at [phone].) Natty Dela Cruz PA-C [Physician Radio Division Lieutenant] - (see Ms Dela Cruz, CHF clinic, in 1 week) Diet: Carb Consistent or DM2 and Heart Healthy Fluids: 1800ml (7 cups) Addtl Attending Provider Instructions: 1. daily standing scale weights. Take every morning. If any weight gain of more than 2-3 pounds in 1-2 days please notify medical scheduler. 2. check BSGs before meals and at bedtime. 3. nasal cannula oxygen - 4 liters continuously. Please assess for higher oxygen requirement with activity/ambulation. 4. CBC, BMP, and magnesium level in 5 days for stability. 5. follow-up -- see separate section. Addtl Energy Advisor Provider Instructions: Call 911 and go to the Emergency Room if: * You have tightness or pain in your chest that does not go away with rest or Nitroglycerin * You are very short of breath even with rest Call your doctor if any of the following symptoms or problems start or get worse: * Shortness of breath or difficulty breathing * Wake up at night short of breath * Chest pain * Cough * Swelling of your hands, fee, or legs * More fatigued or tired with your normal activity * Palpitations - sudden fast heart beats WEIGHT * Weigh yourself every morning after using the bathroom. * Use the same scale. * Wear the same amount of clothing. * Write your weight down on your chart. * Call your doctor if you gain more than 2-3 pounds in 1-2 days. MEDICATIONS * Use this discharge instruction sheet for instructions. * Take your medications at the time your doctor ordered. * Do not skip a dose of your medicines. * If you miss a dose of medicine, take as soon as possible, but DO NOT DOUBLE A DOSE. * Read your medicine information when you get home. * Know all of the side effects of your medicine. * Call your doctor's office if you have any side effects. * Be sure all of your doctors know what medicine and herbs you take (including cold, flu, and herbal medicine). * Pain Medicine: If you do not get relief from your pain, please call your doctor for help. Take the following with you to your follow-up doctor appointments: * Weight Chart * Medication List * List of questions Do not drink excessive alcohol, beer or wine. Pending Studies at Discharge: No Stand-Alone Forms: My [facility] Skilled Items Patient informed of condition?: Yes DNR: No Discharge Level of Care: Skilled Communicable Disease: No Discharge Prognosis: Stable Lines: None Urinary Catheter: No Medications and DC Order Prescriptions: New magnesium oxide 400 mg (241.3 mg magnesium) Tablet 400 mg PO QAM Qty: 30 RF: 2 dapsone 25 mg Tablet 50 mg PO BID Qty: 120 RF: 2 Novolin N NPH U-100 Insulin 100 unit/mL Suspension 15 unit SC DAILY@0900 Qty: 1 RF: 0 furosemide 20 mg Tablet 20 mg PO QAM Qty: 30 RF: 2 metoprolol tartrate 25 mg Tablet 25 mg PO BID Qty: 60 RF: 2 ferrous sulfate 325 mg (65 mg iron) tablet 325 mg PO DAILY Qty: 30 RF: 2 Continued acetaminophen [Mapap (acetaminophen)] 325 mg tablet 650 mg PO Q4H PRN (Reason: pain) RF: 0 (DME) wheelchair device See Rx Instructions .ROUTE .MEDSUPPLY Qty: 1 RF: 0 levothyroxine 75 mcg tablet 75 mcg PO Q2D Qty: 15 RF: 5 levothyroxine 50 mcg tablet 50 mcg PO Q2D Qty: 15 RF: 5 montelukast [Singulair] 10 mg tablet 10 mg PO DAILY Qty: 30 RF: 5 pantoprazole 40 mg tablet,delayed release (DR/EC) 40 mg PO DAILY Qty: 30 RF: 5 potassium chloride 20 mEq tablet extended release 20 meq PO DAILY Qty: 30 RF: 5 budesonide 0.5 mg/2 mL suspension for nebulization 0.5 mg inhalation Q12H Qty: 120 RF: 5 ipratropium-albuterol 0.5 mg-3 mg(2.5 mg base)/3 mL solution for nebulization 3 ml INH Q6H PRN (Reason: wheezing) Qty: 180 RF: 1 diclofenac sodium 1 % gel 4 gm TOP QID Qty: 100 RF: 3 Beano 150 unit tablet 1 tab PO DAILY PRN (Reason: Indigestion) RF: 0 calcium citrate-vitamin D3 315 mg- 250 unit tablet 0.5 tab PO QAM RF: 0 coenzyme Q10 100 mg capsule 200 mg PO DAILY RF: 0 pimecrolimus [Elidel] 1 % cream 1 appln TOP QPM RF: 0 polyethylene glycol 3350 [Miralax] 17 gram/dose powder 17 gm PO DAILY PRN (Reason: Constipation) RF: 0 Goessel Saline Gel [place],Non-Aerosol 1 sprays INTNAS DAILY PRN (Reason: Dry Nasal Passages) RF: 0 cholecalciferol (vitamin D3) 1,000 unit capsule 1,000 units PO QAM RF: 0 Centrum Silver Women 8 mg iron-400 mcg-300 mcg tablet 1 tab PO QAM RF: 0 ascorbic acid (vitamin C) 250 mg tablet 250 mg PO QAM RF: 0 cyanocobalamin (vitamin B-12) 100 mcg tablet 100 mcg PO DAILY RF: 0 benzonatate [Tessalon Perles] 100 mg capsule 100 mg PO BID PRN (Reason: cough) Qty: 20 RF: 0 albuterol sulfate [Ventolin HFA] 90 mcg/actuation HFA aerosol inhaler 2 puff inhalation QID PRN (Reason: Shortness Of Breath Or Wheezing) RF: 0 Changed prednisone 10 mg tablet 10 mg PO DIRECTED Qty: 60 RF: 0 (DME) Oxygen Home Liters Per Minute See Rx Instructions .ROUTE .MEDSUPPLY Qty: 1 RF: 0 Discontinued amlodipine 2.5 mg tablet 2.5 mg PO QAM Qty: 30 RF: 5 hydroxyzine HCl 10 mg tablet 10 mg PO Q8H PRN (Reason: Anxiety) RF: 0 melatonin 3 mg capsule 6 mg PO HS RF: 0 estradiol [Yuvafem] 10 mcg tablet 10 mcg PV QPM RF: 0 Xarelto 20 mg tablet 20 mg PO DAILY RF: 0 fexofenadine 180 mg tablet 180 mg PO DAILY RF: 0 levofloxacin [Levaquin] 500 mg tablet 500 mg PO DAILY Qty: 7 RF: 0 prednisone 20 mg Tablet 40 mg PO DAILY Qty: 60 RF: 0 Discharge Orders: Discharge Order (Routine); Ordered 05/07/19 Ordered By: Gennaro Menjivar Admission Data Admit Date/Time: 04/27/19 09:26 Attending Provider: Gennaro Menjivar Admit Provider: Gennaro Menjivar Primary Care Provider: Luis Daniel Flores Other Providers: Andres Feliciano ; Xavi Cantu ; Judd Goodrich ; Khris Gómez Other Interventions: Discharge Summary Assessment (RN) Last Done: 02/26/20 14:22 DC Date/Time DO NOT enter until pt leaves facility: 05/07/19 16:37 Coding Level of Care Code D/C Day Management >30 mins Diagnoses Acute and chronic respiratory failure with hypoxia J96.21 Acute diastolic CHF (congestive heart failure) I50.31 Inflammation of lung J18.9 Pulmonary alveolar hemorrhage R04.89 Hypothyroid E03.9 Hypothyroidism type: unspecified Atrial fibrillation I48.11 Atrial fibrillation type: longstanding persistent Iron deficiency anemia D50.9 Iron deficiency anemia type: unspecified iron deficiency Steroid-induced hyperglycemia R73.9; T38.0X5A Metabolic encephalopathy G93.41
== END 2019-05-07 16:37 | DRG 208 ==
LOC: ED 07:01 → SUATTDRO 09:26 → 2S 09:26 → 1E 04-30 10:45 → 2W 05-04 10:53

== ENCOUNTER 2019-06-01 00:40 | Inpatient (IN) ==
[2019-06-01] MEDS ORDERED: ALBUT/IPRATROP 3MG/0.5MG NEB 3 ML VIAL NEB STA (01:15)
--- NOTE | 2019-06-01 01:19 | Emergency Department Note ---
ED Provider Note Name: NICK ROMERO Age: 78 Sex: F Arrives Via: Ambulance Informant: Patient, EMS ED Provider: Alexis Duarte MD Chief Complaint: Shortness of breath Impression: Pneumothorax on right Congestive heart failure (acute on chronic) Empyema Lung Acute respiratory distress Medical Decision Makin yr old female chronically unwell who has had difficult last few months with respiratory failure and intubation in April, complicated by re-admission beginning this month with influenza a. She has been at rehab though decompendated yesterday. She has complicated history of afib, chf, dmii, hypothyroid, copd, amongst others. She arrives in significant respiratory distress with diffuse bilateral wet lungs and dyspnea. Was trialled on neb initially with only mild improvement. Significant difficulty getting labs and delay to cxr there-off. CXR with large areas concerning for pneumothorax right lung new from previous CXR and thus despite some increased WOB held off on Bipap. CT done reveals loculated right pleural effusion with diffuse pneumothorax. This may be actually be from empyema and gas forming bacteria, but regardless will hold off on Bipap due to concerns that it may just worsen her current status if worsening pneumothorax. Placed on high flow NC with 100% FiO2 and empirically given broad spectrum ABX. Discussed with Thoracic med who agree would be difficult chest tube and to hold off until discussion son. Eventually got in touch with son who made clear patient is to be made co mfortable, she is not be be placed on ventilator and they already have ruled out doing any chest tubes on patient. He confirms discussions held with palliative care previously. Patient seems comfortable on high flow and hospitalist in to evaluate further. Was given some solumedrol due to respiratory status as well as Lasix with albumin for management of what appears to be concominant fluid overload. Of note patient with reported run of V-tach noted by nursing though on my eval this had resolved. Brief thus will continue to monitor rather than emergent meds Prior Medical Record and Triage/Nursing Notes reviewed by Me Additional history obtained from Son Differentials:Reactive airway disease, pneumonia, pneumothorax, COPD, CHF, infections, cardiac ischemia, pulmonary embolism, musculoskeletal, gastrointestinal, as well as other pathologies. amongst other pathologies. Vital Signs: reviewed and remarkable for Hypoxia on RA Interventions: saline lock, duoneb, zosyn iv, zyvox iv (used because avoid fluid from vanco), solumedrol 125mg IV, lasix 40mg IV with 25% albumen Labs:Reviewed and remarkable for no significant abnormalities Imaging:X ray results are stated below per my interpretation: Chest: 1 view: Loculated right pneumothorax, infiltrate vs chf left lung waller EKG:Per My Interpretation: Indication SHOB: Afib bpm, qtc 386. No Ischemia. Compared to EKG 05/17/19, no significant changes. Cardiac/Tele Monitoring: Cardiac Monitoring: An Order was placed for continuous cardiac monitoring. The monitor shows a rate of 90 with a afib rhythm. Consults:Dr Pena Thoracic Surg and Dr Lagunas Hospitalist Plan: Disposition:Hospitalization. Condition: Poor Blood pressure:Normal.No Referral necessary History of Present Illness:78 / F arrives for evaluation of shortness of breath. Patient with recent diagnosis and admission for influenza and a respiratory failure who [facility] Over last 12 hours worsening respiratory status. Requiring increased amounts NC O2. Worse with exertion, better with laying still. Does not shob worse with laying flat. No leg swelling, calf pain, nausea, vomiting, chest pain, back pain, abdominal pain, nor toher symptoms. She denies any recent fevers. She was given nebs en route with improvement in symptoms. ROS: See above HPI for pertinent positives & negatives. A total of 10 systems reviewed and were otherwise negative. Past Medical History:See Below Past Surgical History:See Below Family History:See Below Social History:See Below Home Medications:See Below Allergies:See Below Vitals:Blood Pressure: 131/77, Pulse 80, RR 18, T 36.7C, O2 88% on 2L NC Physical Exam: GENERAL: Patient is unwell appearing and in moderate distress. EYES: No scleral icterus, unremarkable pupils. ENT: Mucous membranes moist, no nasal congestion. NECK: No masses appreciated, nomeningismus, trachea is midline. RESPIRATORY: diffuse wet lung sounds with moderate dyspnea and decreased throughout CARDIOVASCULAR: Regular rate and rhythm.No murmurs, rubs, gallops appreciated. GASTROINTESTINAL: Abdomen soft, non-tender, no peritonitis.Bowel sounds positive.No masses appreciated. BACK: No midline tenderness, no CVA tenderness EXTREMITIES: Normal motion all extremities, no cyanosis, no edema. NEUROLOGIC: Alert and oriented, no acute motor or sensory deficits, no focal weakness, cranial nerves grossly intact. SKIN: No rash, no jaundice, no diaphoresis. PSYCH: Appropriate GCS: 15 ED Course: Times/Reassessments: Multiple, mild improvement on high flow NC Critical Care: I have personally spent 30 minutes of critical care time in the direct management of this patient. Acute respiratory distress secondary to empyema and pneumothorax. This was a life/limb threatening event. This 30 minutes is in excess of all separately billable procedures. 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 [id number] Status post completion of radiation therapy 03/30/1998" Chronic constipation Chronic ITP (idiopathic thrombocytopenia) Depression with anxiety Diabetes mellitus Dyslipidemia Extrinsic asthma Gastroparesis Generalized anxiety disorder History of esophageal reflux Hypertension Hypothyroidism Impacted cerumen of both ears Irritable bowel syndrome Mixed hearing loss, bilateral Permanent atrial fibrillation Positive ARTEMIO (antinuclear antibody) Pulmonary alveolar hemorrhage Renal cyst (2013) Rosacea Sensorineural hearing loss (SNHL) of both ears Somnolence, daytime Telangiectasia Tinea pedis Venous insufficiency (chronic) (peripheral) Vitamin D deficiency Surgical History History of appendectomy History of cholecystectomy History of dilation and curettage History of mastectomy History of tonsillectomy and adenoidectomy Social History Preferred Language: Nigerien 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 Beliefs That Will Affect Care: None Current Living Situation: Personal Care Facility Current Living Situation Comment: [facility] Feels Safe at Home: Yes Smoking Status: Former smoker Second Hand Exposure: No ; Hx Alcohol Use: No Hx Substance Use: No Seatbelt Use: always Results & Data Vital Signs Vital Signs - 24 hr 06/01/19 00:48 06/01/19 01:26 06/01/19 02:00 Temperature 36.7 C Temperature Source Oral Pulse Rate 80 Pulse Rate [Apical] 84 92 H Pulse Rhythm Regular Pulse Rhythm [Apical] Irregular Pulse Strength Normal Pulse Strength [Apical] Normal Respiratory Rate 18 24 18 Respiratory Effort / Characteristics Non-Labored Spontaneous Respiratory Depth Normal Normal Respiratory Pattern Regular Blood Pressure 131/77 Blood Pressure [Right Arm] 134/70 Blood Pressure Mean 95 Blood Pressure Mean [Right Arm] 91 Blood Pressure Position Sitting Blood Pressure Position [Right Arm] Lying Pulse Oximetry 88 L 94 93 Oxygen Delivery Method Nasal Cannula Nasal Cannula Nasal Cannula Oxygen Flow Rate 2 3.5 3 Fraction of Inspired Oxygen SaO2/FiO2 Ratio Sepsis Recent Fever Within 48 Hours No Sepsis New/Unexplained Change in Mental Status No Sepsis Action Taken by Nursing No Action Required Oxygen Flow Rate - Titration 3 Pulse Oximetry Post Tiitration 96 06/01/19 04:00 Temperature Temperature Source Pulse Rate Pulse Rate [Apical] 93 H Pulse Rhythm Pulse Rhythm [Apical] Irregular Pulse Strength Pulse Strength [Apical] Normal Respiratory Rate 18 Respiratory Effort / Characteristics Respiratory Depth Normal Respiratory Pattern Blood Pressure Blood Pressure [Right Arm] 136/72 Blood Pressure Mean Blood Pressure Mean [Right Arm] 93 Blood Pressure Position Blood Pressure Position [Right Arm] Lying Pulse Oximetry 99 Oxygen Delivery Method High Flow Nasal Cannula Oxygen Flow Rate 10 Fraction of Inspired Oxygen 100 SaO2/FiO2 Ratio 99 Sepsis Recent Fever Within 48 Hours Sepsis New/Unexplained Change in Mental Status Sepsis Action Taken by Nursing Oxygen Flow Rate - Titration Pulse Oximetry Post Tiitration Laboratory Data Result diagrams: 06/01/19 02:11 06/01/19 02:11 Lab Results 06/01/19 06/01/19 06/01/19 Range/Units 02:11 02:11 02:11 WBC 9.12 (4.8-10.8) K/uL RBC 4.24 (4.2-5.4) M/uL Hgb 10.1 L (12.0-16.0) g/dL Hct 35.1 L (37-47) % MCV 82.8 (80-100) fL MCH 23.8 L (25-34) pg MCHC 28.8 L (32-36) g/dL RDW Std Deviation 72.7 H (36.4-46.3) fL RDW Coeff of Reina 24.8 H (11.5-14.5) % Plt Count 275 (130-400) K/uL MPV 8.7 (7.4-10.4) fL Immature Gran % (Auto) 0.9 % Neut % (Auto) 79.1 % Lymph % (Auto) 9.3 % Tate % (Auto) 10.4 % Eos % (Auto) 0.1 % Baso % (Auto) 0.2 % Immature Gran # (Auto) 0.08 H (0.00-0.02) K/uL Neut # (Auto) 7.21 H (1.4-6.5) K/uL Lymph # (Auto) 0.85 L (1.2-3.4) K/uL Tate # (Auto) 0.95 H (0.11-0.59) K/uL Eos # (Auto) 0.01 (0-0.5) K/uL Baso # (Auto) 0.02 (0-0.2) K/uL Anisocytosis Present PT 11.9 (9.0-12.0) Seconds INR 1.1 (0.9-1.1) Sodium 140 (136-145) mmol/L Potassium 3.7 (3.5-5.1) mmol/L Chloride 104 (98-107) mmol/L Carbon Dioxide 30 (21-32) mmol/L Anion Gap 6.0 (3-11) BUN 14 (7-18) mg/dl Creatinine 0.60 (0.6-1.2) mg/dl Est Cr Clr Drug Dosing 76.5 ml/min Est GFR ( Amer) 99.8 Est GFR (Non-Af Amer) 86.1 BUN/Creatinine Ratio 23.3 H (10-20) Glucose 85 (70-99) mg/dl Lactate (0.4-2.0) mmol/L Calcium 8.4 L (8.5-10.1) mg/dl Magnesium 2.1 (1.8-2.4) mg/dl Total Bilirubin 0.6 (0.2-1) mg/dl Direct Bilirubin 0.1 (0-0.2) mg/dl AST 19 (15-37) U/L ALT 21 (12-78) U/L Alkaline Phosphatase 112 (45-117) U/L Troponin I < 0.015 (0-0.045) ng/ml Total Protein 6.4 (6.4-8.2) gm/dl Albumin 2.7 L (3.4-5.0) gm/dl TSH 2.680 (0.300-4.500) uIu/ml 06/01/19 Range/Units 02:11 WBC (4.8-10.8) K/uL RBC (4.2-5.4) M/uL Hgb (12.0-16.0) g/dL Hct (37-47) % MCV (80-100) fL MCH (25-34) pg MCHC (32-36) g/dL RDW Std Deviation (36.4-46.3) fL RDW Coeff of Reina (11.5-14.5) % Plt Count (130-400) K/uL MPV (7.4-10.4) fL Immature Gran % (Auto) % Neut % (Auto) % Lymph % (Auto) % Tate % (Auto) % Eos % (Auto) % Baso % (Auto) % Immature Gran # (Auto) (0.00-0.02) K/uL Neut # (Auto) (1.4-6.5) K/uL Lymph # (Auto) (1.2-3.4) K/uL Tate # (Auto) (0.11-0.59) K/uL Eos # (Auto) (0-0.5) K/uL Baso # (Auto) (0-0.2) K/uL Anisocytosis PT (9.0-12.0) Seconds INR (0.9-1.1) Sodium (136-145) mmol/L Potassium (3.5-5.1) mmol/L Chloride (98-107) mmol/L Carbon Dioxide (21-32) mmol/L Anion Gap (3-11) BUN (7-18) mg/dl Creatinine (0.6-1.2) mg/dl Est Cr Clr Drug Dosing ml/min Est GFR ( Amer) Est GFR (Non-Af Amer) BUN/Creatinine Ratio (10-20) Glucose (70-99) mg/dl Lactate 1.4 (0.4-2.0) mmol/L Calcium (8.5-10.1) mg/dl Magnesium (1.8-2.4) mg/dl Total Bilirubin (0.2-1) mg/dl Direct Bilirubin (0-0.2) mg/dl AST (15-37) U/L ALT (12-78) U/L Alkaline Phosphatase (45-117) U/L Troponin I (0-0.045) ng/ml Total Protein (6.4-8.2) gm/dl Albumin (3.4-5.0) gm/dl TSH (0.300-4.500) uIu/ml Administered Medications Ioversol (Optiray 320 100ml) 93 ml IV ONCE PRN PRN Reason: Interaction Checking Stop: 06/05/19 02:57 Last Admin: 06/01/19 02:58 Dose: 1 ml Documented by: [id number] Discontinued Medications Albuterol (Duoneb) 3 ml NEB NOW STA Stop: 06/01/19 01:16 Last Admin: 06/01/19 01:23 Dose: 3 ml Documented by: [id number] Piperacillin Sod/Tazobactam Sod (Zosyn) 4.5 gm in 120 mls @ 240 mls/hr IV NOW ONE Stop: 06/01/19 04:04 Last Infusion: 06/01/19 05:27 Dose: 0 mls/hr Documented by: [id number] Admin: 06/01/19 04:19 Dose: 240 mls/hr Documented by: [id number] Furosemide 40 mg/ Albumin (Human) 54 mls @ 54 mls/hr IV ONE ONE Stop: 06/01/19 04:36 Last Infusion: 06/01/19 05:27 Dose: 0 mls/hr Documented by: [id number] Admin: 06/01/19 04:18 Dose: 54 mls/hr Documented by: [id number] Linezolid (Zyvox) 600 mg in 300 mls @ 200 mls/hr IV NOW STA Stop: 06/01/19 05:34 Last Infusion: 06/01/19 06:15 Dose: 0 mls/hr Documented by: [id number] Admin: 06/01/19 04:45 Dose: 200 mls/hr Documented by: [id number] Linezolid (Zyvox) 600 mg IV NOW STA Stop: 06/01/19 03:36 Last Admin: 06/01/19 04:45 Dose: Not Given Documented by: [id number] Methylprednisolone (Solumedrol) Confirm Administered Dose 125 mg .ROUTE .STK-MED ONE Stop: 06/01/19 03:20 Last Admin: 06/01/19 03:53 Dose: 125 mg Documented by: [id number] Methylprednisolone (Solumedrol) 125 mg IV NOW STA Stop: 06/01/19 04:07 Last Admin: 06/01/19 04:19 Dose: Not Given Documented by: [id number] Discharge Plan Visit Data *Final* Discharge Date/Time: 06/01/19 04:54 Chief Complaint: Shortness of Breath/Dyspnea Stated Complaint: SHORT OF BREATH ED Provider: Alexis Duarte Discharge Problem: Pneumothorax on right, Congestive heart failure, Empyema lung, Acute respiratory distress Patient Disposition: Admitted As Inpatient Discharge Instructions Interventions: ED Discharge Assessment Last Done: 06/01/19 04:54 Discharge Problem: Congestive heart failure Qualifiers: Heart failure type: systolic Heart failure chronicity: acute on chronic Qualified Code(s): I50.23 - Acute on chronic systolic (congestive) heart failure
[2019-06-01 02:29] LABS: INR 1.1 (0.9-1.1); Prothrombin Time 11.9 Seconds (9.0-12.0)
[2019-06-01 02:37] LABS: Alanine Aminotransferase 21 U/L (12-78); Albumin Level 2.7 gm/dl (3.4-5.0); Aspartate Aminotransferase 19 U/L (15-37); BUN Creatinine Ratio 23.3 (10-20); Bilirubin Direct 0.1 mg/dl (0-0.2); Blood Urea Nitrogen 14 mg/dl (7-18); Calcium 8.4 mg/dl (8.5-10.1); Carbon Dioxide 30 mmol/L (21-32); Chloride 104 mmol/L (98-107); Creatinine Clr Calc Pharmacy 76.5 ml/min; Est GFR (African American) 99.8; Est GFR (Non-African American) 86.1; Glucose 85 mg/dl (70-99); Magnesium 2.1 mg/dl (1.8-2.4); Potassium 3.7 mmol/L (3.5-5.1); Sodium 140 mmol/L (136-145)
[2019-06-01 02:48] LABS: Alkaline Phosphatase 112 U/L (45-117); Bilirubin,Total 0.6 mg/dl (0.2-1); Total Protein 6.4 gm/dl (6.4-8.2); Troponin I < 0.015 ng/ml (0-0.045)
[2019-06-01 02:50] LABS: Hematocrit (blood only) 35.1 % (37-47); Hemoglobin 10.1 g/dL (12.0-16.0); Mean Corpuscular Hemoglobin 23.8 pg (25-34); Mean Corpuscular Hgb Conc 28.8 g/dL (32-36); Mean Corpuscular Volume 82.8 fL (80-100); Mean Platelet Volume 8.7 fL (7.4-10.4); Platelet Count 275 K/uL (130-400); RDW Coefficient of Variation 24.8 % (11.5-14.5); RDW Standard Deviation 72.7 fL (36.4-46.3); Red Blood Count 4.24 M/uL (4.2-5.4); White Blood Count 9.12 K/uL (4.8-10.8)
[2019-06-01] MEDS ORDERED: IOVERSOL 100ml IV PRN (02:58)
[2019-06-01 03:10] LABS: Anisocytosis Present; Basophils # (auto) 0.02 K/uL (0-0.2); Basophils % (auto) 0.2 %; Eosinophils # (auto) 0.01 K/uL (0-0.5); Eosinophils % (auto) 0.1 %; Immature Granulocytes # (auto) 0.08 K/uL (0.00-0.02); Immature Granulocytes % (auto) 0.9 %; Lymphocytes # (auto) 0.85 K/uL (1.2-3.4); Lymphocytes % (auto) 9.3 %; Monocytes # (auto) 0.95 K/uL (0.11-0.59); Monocytes % (auto) 10.4 %; Neutrophils # (auto) 7.21 K/uL (1.4-6.5); Neutrophils % (auto) 79.1 %
[2019-06-01] MEDS ORDERED: methylPREDNISolone 125 MG/2 ML VIAL ONE (03:19)
[2019-06-01] MEDS ORDERED: PIPERACILLIN/TAZOBACTAM 4.5 GM/120 ML BAG IV ONE (03:35)
[2019-06-01] MEDS ORDERED: LINEZOLID CONSULT ACTIVE PRN ×2 (03:35→05:39)
[2019-06-01] MEDS ORDERED: PIPERACILL/TAZOBAC CONSULT ACTIVE PRN ×2 (03:35→05:39)
[2019-06-01] MEDS ORDERED: ALBUMIN 25% 50 ML with FUROSEMIDE 40 MG IV ONE (03:37)
[2019-06-01] MEDS ORDERED: LINEZOLID 600 MG/300 ML BAG IV STA (04:05)
[2019-06-01] MEDS ORDERED: methylPREDNISolone 125 MG/2 ML VIAL IV STA (04:06)
[2019-06-01] MEDS: LINEZOLID 600 MG/300 ML D5W IV STA ×2 (04:19→04:45)
--- NOTE | 2019-06-01 04:55 | History & Physical Report ---
Date of Service June 01, 2019 Assessment & Plan (1) Confusion: The patient presents to the emergency department with altered mental status, confusion, lethargy with some improvement in responsiveness while in the ED. This was thought secondary to acute on chronic respiratory failure with hypoxia, and decreased oral intake due to illness. Present on Admission?: Yes (2) Acute on chronic respiratory failure with hypoxemia: Acute on chronic respiratory failure with hypoxemia, pleural effusions, cavitary lesion of lung bilaterally, multifocal pneumonia- CT suggested multiple cavitary lesions, some of which layer, indicating a likely empyema with gas-forming bacteria. The decision was made by son that she would want antibiotics and nebulizer treatments, but no aggressive treatment such as chest tubes or intubation or chest compressions. Placed on Zyvox 600 mg IV every 12 hours, Zosyn 4.5 g IV every 12 hours. DuoNebs 4 times daily and every 2 hours as needed. Pulmicort Respules 0.5 mg inhaled twice daily. Solu-Medrol 125 mg IV now and then 40 IV every 6 hours Case was discussed with thoracic surgery Dr. Pena over the phone, who is willing to come in and place a chest tube in the patient's chest, however, the son had reiterated before, that she would not want chest tube placed. She was not a candidate for BiPAP unless chest tube would be placed. The patient did receive a single dose of albumin with Lasix IV while in the ED. The patient will be admitted to telemetry unit she is a DNR/DNI, and has a very poor prognosis. Present on Admission?: Yes (3) Pleural effusion: See above Present on Admission?: Yes (4) Cavitary lesion of lung: See above Present on Admission?: Yes (5) Multifocal pneumonia: See above Present on Admission?: Yes (6) Diabetes mellitus: Placed on Accu-Cheks before meals and at bedtime/every 6 hours, with NovoLog coverage per scale. Patient will be n.p.o. Present on Admission?: Yes (7) Hypothyroidism: Hold levothyroxine, until taking p.o. Present on Admission?: Yes History of Present Illness Chief Complaint: The patient presents to the emergency department via ambulance with worsening shortness of breath. Primary Care Provider: Sheyla Alfaro, DO The patient is an 78-year-old female with a past medical history including pleural effusion, pneumonia, atrial fibrillation, pulmonary alveolar hemorrhage, urinary retention, permanent atrial fibrillation, diabetes mellitus, hypothyroidism, sensorineural hearing loss and chronic respiratory failure. She was most recently admitted to [facility] from 05/15/2019-05/23/2019 for similar symptoms. During that visit, patient was admitted to the ICU and among other treatments was offered a chest tube, which her son declined. In the emergency department patient was found to be in moderate to severe respiratory distress, with work-up including CT of the chest which showed a pneumothorax and areas of loculation and pockets of what was thought to be gas-forming bacterial infection. Her son did return phone call, and decision was made that the patient will undergo conservative treatment with antibiotics and nebulizer treatments, but when elevated go chest tube placement, BiPAP or intubation. She was started on high flow in the ED, and did feel better than with nasal cannula. Allergies Allergy/AdvReac Type Severity Reaction Status Date / Time Sulfa (Sulfonamide Allergy Intermediate HIVES Verified 06/01/19 01:15 Antibiotics) cat dander Allergy Unknown ALLERGIES Verified 06/01/19 01:15 desloratadine Allergy Unknown Unknown Verified 06/01/19 01:15 house dust Allergy Unknown ALLERGIES Verified 06/01/19 01:15 mold Allergy Unknown Unknown Verified 06/01/19 01:15 amoxicillin AdvReac Mild GI SYMPTOMS Verified 06/01/19 01:15 atropine AdvReac Mild pain & Verified 06/01/19 01:15 diarrhea diphenoxylate AdvReac Mild pain & Verified 06/01/19 01:15 diarrhea moxifloxacin AdvReac Mild pain & Verified 06/01/19 01:15 diarrhea Cipro AdvReac Unknown GI SYMPTOMS Unverified 07/12/17 08:57 ciprofloxacin AdvReac Unknown GI SYMPTOMS Verified 06/01/19 01:15 clavulanic acid AdvReac Unknown GI SYMPTOMS Verified 06/01/19 01:15 erythromycin base AdvReac Unknown GI SYMPTOMS Verified 06/01/19 01:15 metronidazole AdvReac Unknown GI SYMPTOMS Verified 06/01/19 01:15 minocycline AdvReac Unknown GI SYMPTOMS Verified 06/01/19 01:15 [id number]-Pan Reductase AdvReac Unknown Unknown Verified 06/01/19 01:15 Inhibitor Home Medications Home Medications Medication Instructions Recorded Confirmed Type Beano 1 tab PO DAILY PRN 05/14/19 06/01/19 History Centrum Silver Women 1 tab PO DAILY 05/14/19 06/01/19 History benzonatate [Tessalon Perles] 100 mg PO Q12 PRN 05/14/19 06/01/19 History budesonide [Pulmicort] 0.5 mg INHALATION AMHS 05/14/19 06/01/19 History dapsone 25 mg PO AMHS 05/14/19 06/01/19 History ferrous sulfate 325 mg PO DAILY 05/14/19 06/01/19 History furosemide [Lasix] 20 mg PO DAILY 05/14/19 06/01/19 History ipratropium-albuterol 3 ml INHALATION AMHS 05/14/19 06/01/19 History ipratropium-albuterol 3 ml INHALATION Q4 PRN 05/14/19 06/01/19 History levothyroxine 50 mcg PO Q OTHER DAY 05/14/19 06/01/19 History levothyroxine 75 mcg PO Q OTHER DAY 05/14/19 06/01/19 History magnesium oxide 400 mg PO QAM 05/14/19 06/01/19 History metoprolol tartrate 25 mg PO BID 05/14/19 06/01/19 History montelukast [Singulair] 10 mg PO DAILY 05/14/19 06/01/19 History pantoprazole 40 mg PO QAM 05/14/19 06/01/19 History polyethylene glycol 3350 [Miralax] 17 g PO DAILY PRN 05/14/19 06/01/19 History protein [ProSource] 1 ea PO QAM 05/14/19 06/01/19 History potassium chloride 20 meq PO QAM 06/01/19 06/01/19 History prednisone 20 mg PO QAM 06/01/19 06/01/19 History Past Med/Surg History Medical History (Updated 06/01/19 @ 04:47 by Fly Lagunas MD) Allergic rhinitis due to cats Allergic rhinitis due to dust Anxiety Asthma exacerbation Atrial fibrillation Bilateral impacted cerumen (Resolved) Breast cancer (~1998) "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 [id number] Status post completion of radiation therapy 03/30/1998" Chronic constipation Chronic ITP (idiopathic thrombocytopenia) Depression with anxiety Diabetes mellitus Dyslipidemia Extrinsic asthma Gastroparesis Generalized anxiety disorder History of esophageal reflux Hypertension Hypothyroidism Impacted cerumen of both ears Irritable bowel syndrome Mixed hearing loss, bilateral Permanent atrial fibrillation Positive ARTEMIO (antinuclear antibody) Pulmonary alveolar hemorrhage Renal cyst (2013) Rosacea Sensorineural hearing loss (SNHL) of both ears Somnolence, daytime Telangiectasia Tinea pedis Venous insufficiency (chronic) (peripheral) Vitamin D deficiency Surgical History History of appendectomy History of cholecystectomy History of dilation and curettage History of mastectomy History of tonsillectomy and adenoidectomy Social History Preferred Language: Mohawk Communication Ability: Effective Registration Clerk Required: No Beliefs That Will Affect Care: None Current Living Situation: Personal Care Facility Current Living Situation Comment: [facility] Feels Safe at Home: Yes Smoking Status: Former smoker Second Hand Exposure: No ; Hx Alcohol Use: No Hx Substance Use: No Seatbelt Use: always Review of Systems Review of Systems: The patient denies palpitations, sore throat, nausea, vomiting, diarrhea , constipation, abdominal pain, pelvic pain, blood in urine or stool, dysuria, urinary frequency or urgency, headache, loss of consciousness, abnormal bruising or bleeding, imbalance, focal weakness, numbness or tingling in arms or legs, back or neck pain, or night sweats. The review of systems is otherwise negative other than for that already noted above, and at least 10 systems have been reviewed. Physical Exam Physical Exam: The patient is lethargic but responsive, normocephalic and atraumatic, lying in bed and in moderately severe respiratory distress. HEENT--PERRL, EOMI, mucous membranes and oropharynx dry. Neck--supple. No JVD. No bruits. Thyroid normal, trachea midline, no adenopathy. Heart--normal S1 and S2. No murmurs, rubs or gallops. Lungs--diminished on the right, coarse rhonchi and wheezes on the left. Abdomen--normal bowel sounds and soft. Nontender. Nondistended. Mildly tympanitic Extremities--no cyanosis or clubbing. Trace to 1+ bilateral pretibial pitting edema. Dermatologic-- scattered ecchymoses. Neurologic--cranial nerves II through XII grossly intact. Rheumatologic--normal range of motion. Psychiatric--normal affect. Results & Data Vital Signs (Past 12 Hours) Vital Signs Temp Pulse Pulse Resp BP BP Pulse Ox 06/01/19 04:00 93 H 18 136/72 99 06/01/19 02:00 92 H 18 134/70 93 06/01/19 01:26 84 24 94 06/01/19 00:48 98.1 F 80 18 131/77 88 L Laboratory Results Laboratory Results WBC 9.12 K/uL (4.8-10.8) 06/01/19 02:11 RBC 4.24 M/uL (4.2-5.4) 06/01/19 02:11 Hgb 10.1 g/dL (12.0-16.0) L 06/01/19 02:11 Hct 35.1 % (37-47) L 06/01/19 02:11 MCV 82.8 fL (80-100) 06/01/19 02:11 MCH 23.8 pg (25-34) L 06/01/19 02:11 MCHC 28.8 g/dL (32-36) L 06/01/19 02:11 RDW Std Deviation 72.7 fL (36.4-46.3) H 06/01/19 02:11 RDW Coeff of Reina 24.8 % (11.5-14.5) H 06/01/19 02:11 Plt Count 275 K/uL (130-400) 06/01/19 02:11 MPV 8.7 fL (7.4-10.4) 06/01/19 02:11 Immature Gran % (Auto) 0.9 % 06/01/19 02:11 Neut % (Auto) 79.1 % 06/01/19 02:11 Lymph % (Auto) 9.3 % 06/01/19 02:11 Twiggs % (Auto) 10.4 % 06/01/19 02:11 Eos % (Auto) 0.1 % 06/01/19 02:11 Baso % (Auto) 0.2 % 06/01/19 02:11 Immature Gran # (Auto) 0.08 K/uL (0.00-0.02) H 06/01/19 02:11 Neut # (Auto) 7.21 K/uL (1.4-6.5) H 06/01/19 02:11 Lymph # (Auto) 0.85 K/uL (1.2-3.4) L 06/01/19 02:11 Twiggs # (Auto) 0.95 K/uL (0.11-0.59) H 06/01/19 02:11 Eos # (Auto) 0.01 K/uL (0-0.5) 06/01/19 02:11 Baso # (Auto) 0.02 K/uL (0-0.2) 06/01/19 02:11 Anisocytosis Present 06/01/19 02:11 PT 11.9 Seconds (9.0-12.0) 06/01/19 02:11 INR 1.1 (0.9-1.1) 06/01/19 02:11 Sodium 140 mmol/L (136-145) 06/01/19 02:11 Potassium 3.7 mmol/L (3.5-5.1) 06/01/19 02:11 Chloride 104 mmol/L (98-107) 06/01/19 02:11 Carbon Dioxide 30 mmol/L (21-32) 06/01/19 02:11 Anion Gap 6.0 (3-11) 06/01/19 02:11 BUN 14 mg/dl (7-18) 06/01/19 02:11 Creatinine 0.60 mg/dl (0.6-1.2) 06/01/19 02:11 Est Cr Clr Drug Dosing 76.5 ml/min 06/01/19 02:11 Est GFR ( Amer) 99.8 06/01/19 02:11 Est GFR (Non-Af Amer) 86.1 06/01/19 02:11 BUN/Creatinine Ratio 23.3 (10-20) H 06/01/19 02:11 Glucose 85 mg/dl (70-99) 06/01/19 02:11 Lactate 1.4 mmol/L (0.4-2.0) 06/01/19 02:11 Calcium 8.4 mg/dl (8.5-10.1) L 06/01/19 02:11 Magnesium 2.1 mg/dl (1.8-2.4) 06/01/19 02:11 Total Bilirubin 0.6 mg/dl (0.2-1) 06/01/19 02:11 Direct Bilirubin 0.1 mg/dl (0-0.2) 06/01/19 02:11 AST 19 U/L (15-37) 06/01/19 02:11 ALT 21 U/L (12-78) 06/01/19 02:11 Alkaline Phosphatase 112 U/L (45-117) 06/01/19 02:11 Troponin I < 0.015 ng/ml (0-0.045) 06/01/19 02:11 Total Protein 6.4 gm/dl (6.4-8.2) 06/01/19 02:11 Albumin 2.7 gm/dl (3.4-5.0) L 06/01/19 02:11 TSH 2.680 uIu/ml (0.300-4.500) 06/01/19 02:11 Diagnostic Findings [facility] Patient: NICK ROMERO (Female) : 36 Status: ER Date: 06/01/19 03:17 Room #: History: sob Slices: [phone] Priors: Tech: Nasir Koch @ [phone] Exams: CT CHEST Without Contrast Accession Numbers: [id number] Preliminary Findings Only See Final Report For Complete Findings CT CHEST Without Contrast: Comparison made with CT chest 05/20/2019. Increased overall volume of numerous large loculated gas collections in the right pleural space with associated pleural thickening. There is also a small to moderate volume of layering fluid in these collections posteriorly. The gas may be secondary to bronchopleural fistula, infection, or sequela of an interval procedure into the pleural space. 2.4 cm cavitary lesion in the left lung base. This could represent gas producing abscess, resolving region of necrosis/infection, or cavitary neoplasm. Volume loss of the right lung base. Mild cardiomegaly. Degenerative changes of the shoulders and spine. Radiologist: Prosper Chamberlain MD Study ready at 03:22 and initial results transmitted at 03:34 *This report constitutes a preliminary interpretation only. Non-acute findings felt to be unrelated to the clinical presentation may not be discussed in this report. The study will be interpreted and a final report will be generated by the local Radiologist the following shift. To reach the hospital radiology department call [phone]. If a discrepancy is found between the preliminary and final interpretations of this study, please notify us via our Client Portal at [email or web address] can also fax this report with a description of the discrepancy, or include the final report, to our daytime fax number [phone].If faxing, please indicate the severity of discrepancy using one of the following categories: [ ] 1 - Agree/Informational [ ] 2 - Unlikely to Affect Management [ ] 3 - Possible Eventual Change of Management [ ] 4 - Probable Immediate Change of Management For all other patient related information, please fax us at [phone]. [id number] Code Status & VTE Plan Code Status DNR/DNI VTE Prophylaxis Plan VTE Prophylaxis will be ordered: Yes PG Care Time/CCT Total # of Minutes Spent Total Time Spent with Patient: Total time spent is greater than 50% in coordination of care (as documented) at patient's floor/unit and/or counseling patient: Coding Level of Care Code 88300 Initial Inpt Care Lvl 3 Diagnoses Confusion R41.0 Acute on chronic respiratory failure with hypoxemia J96.21 Pleural effusion J90 Cavitary lesion of lung J98.4 Multifocal pneumonia J18.9 Diabetes mellitus E11.9; Z79.4 Diabetes mellitus type: type 2 Diabetes mellitus intermediate card tender insulin use: with intermediate card tender use Diabetes mellitus complication status: without complication Hypothyroidism E03.9 Hypothyroidism type: acquired (1) Diabetes mellitus Diabetes mellitus type: type 2 Diabetes mellitus jail insulin use: with jail use Diabetes mellitus complication status: without complication Qualified Code(s): E11.9 - Type 2 diabetes mellitus without complications; Z79.4 - meterman (current) use of insulin (2) Hypothyroidism Hypothyroidism type: acquired Qualified Code(s): E03.9 - Hypothyroidism, unspecified
[2019-06-01] MEDS ORDERED: ACETAMINOPHEN 325 MG TAB PO PRN (05:39)
[2019-06-01] MEDS ORDERED: ICU PROTOCOL FOR HYPERGLYCEMIA PRN (05:39)
[2019-06-01] MEDS ORDERED: ONDANSETRON INJ 2 MG/ML 2 ML VIAL IV PRN (05:39)
[2019-06-01] MEDS ORDERED: PIPERACILLIN/TAZOBACTAM 4.5 GM/120 ML BAG IV SCH (05:39)
[2019-06-01] MEDS ORDERED: LINEZOLID 600 MG/300 ML D5W IV SCH (05:39)
[2019-06-01 06:50] LABS: Appearance Urine Clear (Clear); Bilirubin Urine Negative (Negative); Blood Urine 1+ (Negative); Color Urine Colorless; Glucose Urine UA Negative (Negative); Ketones Urine Negative (Negative); Leukocyte Esterase Urine Negative (Negative); Nitrite Urine Positive (Negative); Protein Urine Negative (Negative); Urobilinogen Urine Negative (Negative)
[2019-06-01 06:59] LABS: Epithelial Cell Urine 0-5 /lpf (0-5)
[2019-06-01 07:00] LABS: WBC Urine 0-5 /hpf (0-5)
[2019-06-01] MEDS ORDERED: BUDESONIDE 0.5 MG/2 ML VIAL (PULMICORT) INH SCH (07:00)
[2019-06-01 07:01] LABS: Bacteria Urine 1+ (Negative)
[2019-06-01] MEDS: ALBUT/IPRATROP 3MG/0.5MG NEB 3 ML VIAL NEB SCH ×3 (07:11→15:56)
--- NOTE | 2019-06-01 08:03 | XRay Report ---
XR chest 1V portable HISTORY: 78 years-old Female shortness of breath acute shortness of breath COMPARISON: Chest CT of same day, chest radiograph 05/18/2019 TECHNIQUE: Portable AP view of the chest FINDINGS: Cardiac silhouette is enlarged, unchanged. Calcified plaque of the thoracic aortic arch. Multifocal m ixed interstitial and alveolar opacities of the left midlung and left lung base. Calcified plaque the thoracic aortic arch. Multiple air and fluid loculations of the right hemithorax have progressively worsened from the 05/20/2019 exam. On the chest CT of same date these appear to correlate with collect ions in the pleural cavity. Mixed interstitial and alveolar opacities are noted throughout the right lung, most pronounced within the right perihilar distribution and right lung base. Surgical clips pro ject over the right axilla. Degenerative changes of the shoulders and spine. IMPRESSION: 1. Multiple air and fluid loculations of the right hemithorax pleural space have progressively worsen ed from the 05/20/[address] and are better evaluated on chest CT of same day. 2. Cardiomegaly with bilateral mixed interstitial and alveolar opacities. ACT 112: Negative or not required by law. The above report was generated using voice recognition software. It may contain grammatical, syntax o r spelling errors. Electronically signed by: Kam Sheehan M.D. 06/01/2019 8:02 AM
[2019-06-01] MEDS ORDERED: DAPSONE 25 MG TAB PO SCH (09:00)
[2019-06-01] MEDS ORDERED: FAMOTIDINE 20 MG in SYRINGE 3 ML IV SCH (09:00)
[2019-06-01] MEDS ORDERED: methylPREDNISolone 40 MG in SYRINGE 0 ML IV SCH (10:00)
[2019-06-01] MEDS ORDERED: PIPERACILLIN/TAZOBACTAM 3.375 GM in DEXTROSE 5% 100 ML IV SCH (10:00)
[2019-06-01] MEDS ORDERED: ATROPINE SULFATE 1% OP SOLN 5 ML BTL SL PRN (11:26)
--- NOTE | 2019-06-01 11:31 | CT Scan Report ---
CT chest wo con CT DOSE: 358.61 mGy.cm CLINICAL HISTORY: 78 years-old Female with Respiratory Failure. Acute shortness of breath with respi ratory failure TECHNIQUE: Multiaxial CT images of the chest were performed without contrast. A dose lowering techni que was utilized adhering to the principles of ALARA. COMPARISON: Chest CT 05/20/2019, chest CT 02/07/2019. FINDINGS: Unremarkable thyroid. Prominent paratracheal lymph nodes. Enlarged subcarinal lymph node measures up to 1.6 cm in short axis. Moderate cardiomegaly with coronary artery calcifications. Moderate calcific plaque of the thoracic aorta without aneurysm. Surgical clips of the right axilla suggest prior axil bernardino sunday dissection. Trace left pleural effusion. Small to moderate loculated right pleural effusion. There is diffuse ple ural thickening throughout the right hemithorax with multiple large loculations of air within the rig ht pleural cavity, progressively worsened from comparison. The amount of pleural fluid on the right h as mildly decreased. There are multiple areas of apparent pleural tethering/scarring best forming the air locules. Bilateral groundglass and reticular interstitial opacities with right greater than left bibasilar consolidation. There are patchy irregular consolidative opacities throughout the left lung with a 2.8 x 1.7 cm centrally cystic/cavitary nodule of the basal left lower lobe, image 234 series 4. In retrospect, this is unchanged from the 05/20/2019 exam however appears to be new from 02/07/2019 . Multifocal mucus plugging of the lung bases. No acute process of the imaged upper abdomen. Degenerative changes of the shoulders and spine. Convex right curvature of the thoracolumbar junction. No acute displaced rib fracture identified. IMPRESSION: 1. Small to moderate loculated right pleural effusion has mildly decreased in size from the 05/20/2019 exam. Additionally, there is diffuse pleural thickening throughout the right hemithorax with multipl e large loculations of air within the pleural cavity which have increased in the interval. Although t hese findings may be on an infectious basis, the large amount of air is somewhat atypical for empyema and may be secondary to instrumentation or bronchopleural fistula. 2. Bilateral groundglass opacities with irregular consolidation of the bilateral lungs appears stable from 05/20/2019 suggestive of a nonspecific infectious or inflammatory pneumonitis. 3. Unchanged 2.8 cm centrally cystic/cavitary nodular consolidation of the posterior basal segment le ft lower lobe. This finding may represent necrotic pneumonia however should be followed to exclude ne oplasm. 4. Mild subcarinal adenopathy, likely reactive. 5. Cardiomegaly. ACT 112: Negative or not required by law. Electronically signed by: Kam Sheehan M.D. 06/01/2019 11:30 AM
--- NOTE | 2019-06-01 12:01 | Hospitalist Progress Note ---
Date of Service June 01, 2019 Assessment & Plan (1) Cavitary lesion of lung: CT chest on 05/31 shows a pleural effusion and large pockets of air in the right lung. Likely infection vs. a bronchopleural fistula. Patient in significant distress. Discussed with son, Rajesh, who feels his mother is suffering and would like to make her comfort care. - Stop life-prolonging measures unless they keep her comfortable, e.g. oxygen. - Added morphine, Ativan, atropine as needed Admission and Anticipated Discharge Date Admission Date: June 01, 2019 Subjective Patient lethargic and unable to answer my questions. Review of Systems Review of Systems: Unobtainable due to cognitive status and Unobtainable due to reduced consciousness Physical Exam Constitutional: + cachectic, + frail appearing and + lethargic Eyes: EOM intact bilaterally; no conjunctival abnormality ENMT: external ear and nose normal, oropharynx normal Neck: trachea midline, no thyromegaly normal visual inspection Respiratory: + respiratory distress, + uses accessory muscles, + grunting and + nasal flaring Auscultation: + breath sounds absent (Right) Cardiovascular: Rate/Rhythm: regular rhythm and + tachycardic Gastrointestinal (Abdomen): Inspection/Auscultation: + abdomen distended Percussion/Palpation: abdomen soft; abdomen nontender Musculoskeletal: Head/Neck/Chest: normocephalic and head atraumatic Skin: no rashes, warm and dry Neurologic: moves all extremities; + not awake Psychiatric: Orientation: + not alert and + not oriented to person Results & Data ([facility]) Vital Signs (Past 12 Hours) Vital Signs Temp Pulse Pulse Resp BP BP BP 06/01/19 11:36 36.7 C 94 H 14 158/98 H 06/01/19 11:16 89 20 06/01/19 07:45 36.8 C 96 H 20 134/90 06/01/19 07:12 103 H 20 06/01/19 07:11 103 H 20 06/01/19 05:58 99 H 20 06/01/19 05:30 37.1 C 98 H 21 140/79 06/01/19 04:54 96 H 18 127/90 06/01/19 04:45 104 H 22 06/01/19 04:00 93 H 18 136/72 06/01/19 02:00 92 H 18 134/70 06/01/19 01:26 84 24 06/01/19 00:48 36.7 C 80 18 131/77 Pulse Ox 06/01/19 11:36 98 06/01/19 11:16 80 L 06/01/19 07:45 98 06/01/19 07:12 96 06/01/19 07:11 96 06/01/19 05:58 98 06/01/19 05:30 97 06/01/19 04:54 98 06/01/19 04:45 98 06/01/19 04:00 99 06/01/19 02:00 93 06/01/19 01:26 94 06/01/19 00:48 88 L PG Care Time/CCT Total # of Minutes Spent Total Time Spent with Patient: Total time spent is greater than 50% in coordination of care (as documented) at patient's floor/unit and/or counseling patient: Coding Level of Care Code 90504 Subseq Hosp Care Lvl 2 Diagnoses Cavitary lesion of lung J98.4
[2019-06-01] MEDS: MoRPHine SULFATE 5 MG/0.25 ML UDP PO PRN (14:19)
[2019-06-01] MEDS ORDERED: LINEZOLID 600 MG/300 ML BAG IV SCH (17:00)
--- NOTE | 2019-06-01 18:29 | Electrocardiogram Report ---
Test Reason : Blood Pressure : / mmHG Vent. Rate : 097 BPM Atrial Rate : 468 BPM P-R Int : 000 ms QRS Dur : 094 ms QT Int : 304 ms P-R-T Axes : 000 -45 018 degrees QTc Int : 386 ms Poor data quality, interpretation may be adversely affected Atrial fibrillation Left axis deviation Nonspecific ST abnormality Low voltage QRS Abnormal ECG When compared with ECG of 17-MAY-2019 09:26, Nonspecific T wave abnormality, improved in Inferior leads QT has shortened Confirmed by Brett Ng ([id number]) on 06/01/2019 6:29:18 PM Referred By: REFERRED SELF Confirmed By:John Ng
--- NOTE | 2019-06-02 09:58 | Hospitalist Progress Note ---
Date of Service June 02, 2019 Assessment & Plan (1) Cavitary lesion of lung: Presented with severe respiratory distress with worsening CT chest on 05/31 shows a pleural effusion and large pockets of air in the right lung. Likely infection vs. a bronchopleural fistula. Was placed by levels of oxygen, given IV steroids and antibiotics initially upon admission. With end-stage severe pulmonary disease. After discussion with son, Rajesh, who feels his mother is suffering and would like to make her comfort care on 05/31. No chest tubes or aggressive measures to be taken - Stop life-prolonging measures unless they keep her comfortable, e.g. oxygen. -Continue morphine, Ativan, atropine as needed Can only return to snf facility with hospice if oxygen flow is 6 L or less Patient is awake and alert enough today and would like to eat-ordered a diet for comfort -Ordered some of her p.o. home meds that she was asking for-restarted prednisone, metoprolol, Singulair, Protonix, levothyroxine Appreciate palliative care consultation (2) Pneumothorax on right: (3) Acute respiratory distress: Admission and Anticipated Discharge Date Admission Date: June 01, 2019 Subjective Patient reports some shortness of breath but not gasping for air. Denies pain anywhere. She is asking if she can eat and drink. She asks what the plan is and wants to know if her family has been involved with planning for her future. Reports "yesterday I thought I was going to close my eyes and , then I woke up this morning and I am still here." Telemetry with atrial fibrillation, PVCs, small 3-4 beat runs of V. tach, rates in the 70s to 90s. I discussed his case at length with his son on the phone who agrees with continuing comfort measures only. Review of Systems Review of Systems: All systems reviewed & are unremarkable except as noted in HPI & below (Remains confused at times) Physical Exam Constitutional: average body habitus; no acute distress Eyes: + anicteric sclerae Neck: trachea midline, no thyromegaly Respiratory: normal respiratory effort Auscultation: + diminished lung sounds (Right base), + crackles (Middle lung waller) and + wheezes Cardiovascular: RRR, no murmur, no edema Chest (Breasts): Chest: normal inspection of chest Gastrointestinal (Abdomen): normal bowel sounds, soft, nontender, no hepatosplenomegaly Musculoskeletal: Extremities: extremities normal to inspection; no cyanosis and no clubbing Skin: no rashes, warm and dry Neurologic: moves all extremities and awake; no focal motor deficits Psychiatric: Orientation: alert, oriented to person, oriented to place and cooperative; + not oriented to time (Only the year but not the month and date) Eye Contact: good eye contact Lymphatic: no lymphedema Results & Data ([facility]) Vital Signs (Past 12 Hours) Vital Signs Temp Pulse Resp BP Pulse Ox 06/02/19 08:11 36.4 C L 88 21 151/89 H 99 06/02/19 04:38 36.4 C L 97 H 21 165/100 H 96 06/01/19 23:07 36.4 C L 94 H 18 153/110 H 97 Laboratory Results No labs PG Care Time/CCT Total # of Minutes Spent Total Time Spent with Patient: Total time spent is greater than 50% in coordination of care (as documented) at patient's floor/unit and/or counseling patient: Coding Level of Care Code 15614 Subseq Hosp Care Lvl 1 Diagnoses Cavitary lesion of lung J98.4 Pneumothorax on right J93.9 Acute respiratory distress R06.03
[2019-06-02] MEDS: LORazepam 0.5 MG TAB SL PRN ×2 (10:15→17:32)
[2019-06-02] MEDS: predniSONE 20 MG TAB PO SCH (11:27)
[2019-06-02] MEDS: LEVOTHYROXINE SODIUM 75 MCG TABLET PO SCH (11:28)
[2019-06-02] MEDS: PANTOprazole 40 MG TAB PO SCH (11:28)
[2019-06-02] MEDS: METOPROLOL TARTRATE 25 MG TAB PO SCH ×2 (11:28→21:41)
--- NOTE | 2019-06-02 15:42 | Palliative Care Consultation ---
Date of Consultation June 02, 2019 Assessment & Plan (1) Palliative care encounter: Patient known to our service from her recent admission earlier this month. Patient is an 78-year-old female with a past medical history significant for interstitial lung disease, hypertension, chronic A. fib, LVH, anxiety, hypothyroidism, CHF and recurrent pulmonary infiltrates who has had multiple admissions since January. Patient was admitted from 02/04 -02/12 for respiratory symptoms-underwent bronchoscopy with biopsy that showed interstitial lung disease. Patient was admitted again from 04/27-05/07 for increased respiratory distress-bronchoscopy showed alveolar hemorrhage and she required intubation during that hospitalization. Patient has PFTs that showed an obstructive/restrictive pattern. Patient was again admitted from 05/14 -05/21 when she presented with increased shortness of breath and work of breathing and tested positive for flu A. Patient was seen by palliative consult service during her early May admission-plan was to return to [facility] for rehab and then transition to hospice. Before patient was able to be transition to hospice she returned again to the emergency room on 05/31 with increased shortness of breath and work of breathing. Patient was initially treated with nebs-chest x- ray showed a loculated right pleural effusion with loculations of air. BiPAP was contraindicated. Team attending had discussions with patient's son regarding how aggressive to be with her care regarding her loculated pleural effusion-in patient's current condition would likely not tolerate extensive surgery and chest tube placement. Patient is a DNR/DNI, son declined chest tube, goal is for comfort. Patient is currently on O2 at 10 L via oxime asked. Patient exhibits significant confusion and is unable to participate in any medical decision making. Spoke with patient's son by phone and collaborated with case management-plan would be placement in a facility with hospice/comfort care when patient is able to tolerate a lower O2 flow level. -Goals of care-comfort measures, son declines chest tube or aggressive invasive procedures including intubation. Collaborated with case management regarding placement and hospice referral once patient able to tolerate lower O2 flow rate. -Acute respiratory distress with hypoxia-patient tolerating O2 at 10 L, was on scheduled nebs, now on PRN nebs. Patient did receive 1 dose of PRN Roxanol yesterday and 1 dose of Ativan this a.m. -Empyema-loculated right pleural effusion with loculations of air-patient would likely not tolerate aggressive surgical drainage and chest tube placement given her multiple comorbidities -son has declined any aggressive intervention with goal for comfort -Pneumothorax-patient with large loculations of air on CT scan -CHF-contributing to her shortness of breath, slight improvement in respiratory status with diuresis -Confusion-seen during prior admissions, patient unable to participate in medical decision making -Permanent A. fib-rate controlled with metoprolol Will continue to follow and assist family with medical decision making, we will continue to collaborate with case management regarding placement with hospice services. (2) Acute respiratory distress: (3) Empyema lung: (4) Pneumothorax on right: (5) Congestive heart failure: Heart failure chronicity: acute on chronic Heart failure type: systolic Qualified Code(s): I50.23 - Acute on chronic systolic (congestive) heart failure (6) Confusion: (7) Permanent atrial fibrillation: History of Present Illness Reason for Consultation: Address goals of care Requesting Physician: Dr. Hoyt Attending Physician: Lexi Hoyt MD History of Present Illness Patient known to our service from her recent admission earlier this month. Patient is an 78-year-old female with a past medical history significant for interstitial lung disease, hypertension, chronic A. fib, LVH, anxiety, hypothyroidism, CHF and recurrent pulmonary infiltrates who has had multiple admissions since January. Patient was admitted from 02/04 -02/12 for respiratory symptoms-underwent bronchoscopy with biopsy that showed interstitial lung disease. Patient was admitted again from 04/27-05/07 for increased respiratory distress-bronchoscopy showed alveolar hemorrhage and she required intubation during that hospitalization. Patient has PFTs that showed an obstructive/restrictive pattern. Patient was again admitted from 05/14 -05/21 when she presented with increased shortness of breath and work of breathing and tested positive for flu A. Patient was seen by palliative consult service during her early May admission-plan was to return to [facility] for rehab and then transition to hospice. Before patient was able to be transition to hospice she returned again to the emergency room on 05/31 with increased shortness of breath and work of breathing. Patient was initially treated with nebs-chest x- ray showed a loculated right pleural effusion with loculations of air. BiPAP was contraindicated. Team attending had discussions with patient's son regarding how aggressive to be with her care regarding her loculated pleural effusion-in patient's current condition would likely not tolerate extensive surgery and chest tube placement. Patient is a DNR/DNI, son declined chest tube, goal is for comfort. Patient is currently on O2 at 10 L via oxime asked. Patient exhibits significant confusion and is unable to participate in any medical decision making. Spoke with patient's son by phone and collaborated with case management-plan would be placement in a facility with hospice/comfort care when patient is able to tolerate a lower O2 flow level. Allergies Allergy/AdvReac Type Severity Reaction Status Date / Time Sulfa (Sulfonamide Allergy Intermediate HIVES Verified 06/01/19 01:15 Antibiotics) cat dander Allergy Unknown ALLERGIES Verified 06/01/19 01:15 desloratadine Allergy Unknown Unknown Verified 06/01/19 01:15 house dust Allergy Unknown ALLERGIES Verified 06/01/19 01:15 mold Allergy Unknown Unknown Verified 06/01/19 01:15 amoxicillin AdvReac Mild GI SYMPTOMS Verified 06/01/19 01:15 atropine AdvReac Mild pain & Verified 06/01/19 01:15 diarrhea diphenoxylate AdvReac Mild pain & Verified 06/01/19 01:15 diarrhea moxifloxacin AdvReac Mild pain & Verified 06/01/19 01:15 diarrhea Cipro AdvReac Unknown GI SYMPTOMS Unverified 07/12/17 08:57 ciprofloxacin AdvReac Unknown GI SYMPTOMS Verified 06/01/19 01:15 clavulanic acid AdvReac Unknown GI SYMPTOMS Verified 06/01/19 01:15 erythromycin base AdvReac Unknown GI SYMPTOMS Verified 06/01/19 01:15 metronidazole AdvReac Unknown GI SYMPTOMS Verified 06/01/19 01:15 minocycline AdvReac Unknown GI SYMPTOMS Verified 06/01/19 01:15 [id number] Reductase AdvReac Unknown Unknown Verified 06/01/19 01:15 Inhibitor Home Medications Home Medications Medication Instructions Recorded Confirmed Type Beano 1 tab PO DAILY PRN 05/14/19 06/01/19 History Centrum Silver Women 1 tab PO DAILY 05/14/19 06/01/19 History benzonatate [Tessalon Perles] 100 mg PO Q12 PRN 05/14/19 06/01/19 History budesonide [Pulmicort] 0.5 mg INHALATION AMHS 05/14/19 06/01/19 History dapsone 25 mg PO AMHS 05/14/19 06/01/19 History ferrous sulfate 325 mg PO DAILY 05/14/19 06/01/19 History furosemide [Lasix] 20 mg PO DAILY 05/14/19 06/01/19 History ipratropium-albuterol 3 ml INHALATION AMHS 05/14/19 06/01/19 History ipratropium-albuterol 3 ml INHALATION Q4 PRN 05/14/19 06/01/19 History levothyroxine 50 mcg PO Q OTHER DAY 05/14/19 06/01/19 History levothyroxine 75 mcg PO Q OTHER DAY 05/14/19 06/01/19 History magnesium oxide 400 mg PO QAM 05/14/19 06/01/19 History metoprolol tartrate 25 mg PO BID 05/14/19 06/01/19 History montelukast [Singulair] 10 mg PO DAILY 05/14/19 06/01/19 History pantoprazole 40 mg PO QAM 05/14/19 06/01/19 History polyethylene glycol 3350 [Miralax] 17 g PO DAILY PRN 05/14/19 06/01/19 History protein [ProSource] 1 ea PO QAM 05/14/19 06/01/19 History potassium chloride 20 meq PO QAM 06/01/19 06/01/19 History prednisone 20 mg PO QAM 06/01/19 06/01/19 History Patient History Medical History Allergic rhinitis due to cats Allergic rhinitis due to dust Anxiety Asthma exacerbation Atrial fibrillation Bilateral impacted cerumen (Resolved) Breast cancer (~1998) "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 [id number] Status post completion of radiation therapy 03/30/1998" Chronic constipation Chronic ITP (idiopathic thrombocytopenia) Depression with anxiety Diabetes mellitus Dyslipidemia Extrinsic asthma Gastroparesis Generalized anxiety disorder History of esophageal reflux Hypertension Hypothyroidism Impacted cerumen of both ears Irritable bowel syndrome Mixed hearing loss, bilateral Permanent atrial fibrillation Positive ARTEMIO (antinuclear antibody) Pulmonary alveolar hemorrhage Renal cyst (2013) Rosacea Sensorineural hearing loss (SNHL) of both ears Somnolence, daytime Telangiectasia Tinea pedis Venous insufficiency (chronic) (peripheral) Vitamin D deficiency Surgical History History of appendectomy History of cholecystectomy History of dilation and curettage History of mastectomy History of tonsillectomy and adenoidectomy Family History Aunt Breast cancer Mother Renal failure Unknown Diabetes Hypertension Son Malignant neoplasm of brain Social History Preferred Language: Senegalese Communication Ability: Impaired Entry Level Accountant Required: No Beliefs That Will Affect Care: None Current Living Situation: Personal Care Facility Current Living Situation Comment: [facility] Feels Safe at Home: Yes Smoking Status: Former smoker Second Hand Exposure: No ; Hx Alcohol Use: No Hx Substance Use: No Seatbelt Use: always Review of Systems Review of Systems: ROS limited by confusion Patient denies fever, chills, chest pain or abdominal pain Does report shortness of breath and constipation Physical Exam Physical Exam: PE: Patient awake, mild respiratory distress on O2 at 10 L via oxy mask -able to speak approximately half a sentence between breaths HEENT: EOMI, mild YUROK Respiratory: Minimal breath sounds on right, coarse breath sounds on left, mild increased work of breathing CV: Rate controlled, irregular rhythm Abdomen: Soft, nontender, not distended Extremities: Full range of motion, generalized weakness Neuro: Confused, oriented to person and place Results & Data Vital Signs (Past 12 Hours) Vital Signs Temp Pulse Resp BP Pulse Ox 06/02/19 11:25 97 H 18 146/80 H 10 L 06/02/19 08:11 97.5 F L 88 21 151/89 H 99 06/02/19 04:38 97.5 F L 97 H 21 165/100 H 96 PG Care Time/CCT Total # of Minutes Spent Total Time Spent with Patient: Total time spent 70 minutes with greater than 50% of the time spent at patient's bedside assessing current condition as well as collaborating with patient's son and case management on the unit Coding Level of Care Code 57197 Inpt Consult Level 3 Diagnoses Palliative care encounter Z51.5 Acute respiratory distress R06.03 Empyema lung J86.9 Pneumothorax on right J93.9 Congestive heart failure I50.23 Heart failure chronicity: acute on chronic Heart failure type: systolic Confusion R41.0 Permanent atrial fibrillation I48.2 Time Spent (min) 70
[2019-06-02] MEDS: MoRPHine SULFATE 5 MG/0.25 ML UDP PO PRN ×2 (15:52→23:02)
--- NOTE | 2019-06-02 16:24 | Electrocardiogram Report ---
Test Reason : Blood Pressure : / mmHG Vent. Rate : 098 BPM Atrial Rate : 089 BPM P-R Int : 000 ms QRS Dur : 096 ms QT Int : 334 ms P-R-T Axes : 000 -54 000 degrees QTc Int : 426 ms Atrial fibrillation with premature ventricular or aberrantly conducted complexes Left axis deviation Abnormal ECG Confirmed by Brett Ng ([id number]) on 06/02/2019 4:23:40 PM Referred By: REFERRED SELF Confirmed By:John Ng
[2019-06-02] MEDS: MoRPHine SULFATE 2 MG/ML CARP IV PRN (17:38)
[2019-06-02] MEDS: ALBUT/IPRATROP 3MG/0.5MG NEB 3 ML VIAL NEB PRN (18:18)
[2019-06-03] MEDS: MoRPHine SULFATE 5 MG/0.25 ML UDP PO PRN ×7 (01:37→22:40)
[2019-06-03] MEDS: MoRPHine SULFATE 2 MG/ML CARP IV PRN (02:52)
[2019-06-03] MEDS: LORazepam 0.5 MG TAB SL PRN (03:03)
[2019-06-03] MEDS: ALBUT/IPRATROP 3MG/0.5MG NEB 3 ML VIAL NEB PRN ×2 (03:22→07:23)
[2019-06-03] MEDS ORDERED: MoRPHine SULFATE 10 MG/0.5 ML UDP PO STA (03:40)
[2019-06-03] MEDS ORDERED: LORazepam 1 MG TAB SL STA (03:41)
[2019-06-03] MEDS ORDERED: FUROSEMIDE 20 MG in SYRINGE 0 ML IV ONE (03:46)
[2019-06-03] MEDS ORDERED: MoRPHine SULFATE 10 MG/0.5 ML UDP ONE (03:51)
[2019-06-03] MEDS ORDERED: LORazepam 1 MG TAB ONE (03:52)
[2019-06-03] MEDS ORDERED: FUROSEMIDE 40 MG/4 ML VIAL IV ONE (04:00)
[2019-06-03] MEDS ORDERED: LEVOTHYROXINE SODIUM 50 MCG TABLET PO SCH (06:30)
[2019-06-03] MEDS: METOPROLOL TARTRATE 25 MG TAB PO SCH ×3 (07:37→20:20)
[2019-06-03] MEDS: PANTOprazole 40 MG TAB PO SCH (07:37)
[2019-06-03] MEDS: predniSONE 20 MG TAB PO SCH (07:37)
[2019-06-03] MEDS ORDERED: MONTELUKAST SODIUM 10 MG TABLET PO SCH (09:00)
[2019-06-03] MEDS: LORazepam 1 MG TAB SL PRN ×3 (10:37→20:01)
--- NOTE | 2019-06-03 13:09 | Hospitalist Progress Note ---
Date of Service June 03, 2019 Assessment & Plan (1) Cavitary lesion of lung: Presented with severe respiratory distress with worsening CT chest on 05/31 shows a pleural effusion and large pockets of air in the right lung. Likely infection vs. a bronchopleural fistula. Was placed by levels of oxygen, given IV steroids and antibiotics initially upon admission. With end-stage severe pulmonary disease. After discussion with son, Rajesh, who feels his mother is suffering and would like to make her comfort care on 05/31. No chest tubes or aggressive measures to be taken Is unresponsive today, appears comfortable - Stop life-prolonging measures unless they keep her comfortable, e.g. oxygen. -Continue morphine, Ativan, atropine as needed Can only return to snf facility with hospice if oxygen flow is 6 L or less -hold home p.o. meds of prednisone, metoprolol, Singulair, Protonix, levothyroxine if not awake/alert Appreciate palliative care consultation Dispo-suspect will pass away here in the next 2-3 days (2) Pneumothorax on right: (3) Acute respiratory distress: Admission and Anticipated Discharge Date Admission Date: June 01, 2019 Subjective Pt unresponsive except does moan once with loud verbal stimulus. RN reports she was having some periods of apnea and was given Roxanol for comfort overnight and this AM. Discussed case with Palliative Care Review of Systems Review of Systems: Unobtainable due to reduced consciousness Physical Exam Constitutional: average body habitus; no acute distress Eyes: + anicteric sclerae Neck: trachea midline, no thyromegaly Respiratory: normal respiratory effort Auscultation: + diminished lung sounds (Right base) and + crackles (Middle lung waller) Cardiovascular: RRR, no murmur, no edema Chest (Breasts): Chest: normal inspection of chest Gastrointestinal (Abdomen): normal bowel sounds, soft, nontender, no hepatosplenomegaly Musculoskeletal: Extremities: extremities normal to inspection; no cyanosis and no clubbing Skin: no rashes, warm and dry Neurologic: + obtunded Results & Data ([facility]) Vital Signs (Past 12 Hours) Vital Signs Pulse Pulse Resp Pulse Ox 06/03/19 07:23 99 H 22 97 06/03/19 03:22 111 H 25 H 95 PG Care Time/CCT Total # of Minutes Spent Total Time Spent with Patient: Total time spent is greater than 50% in coordination of care (as documented) at patient's floor/unit and/or counseling patient: Coding Level of Care Code 70903 Subseq Hosp Care Lvl 1 Diagnoses Cavitary lesion of lung J98.4 Pneumothorax on right J93.9 Acute respiratory distress R06.03
--- NOTE | 2019-06-03 13:26 | Palliative Care Progress Note ---
Date of Service June 03, 2019 Assessment & Plan (1) Palliative care encounter: Patient known to our service from her recent admission earlier this month. Patient is an 78-year-old female with a past medical history significant for interstitial lung disease, hypertension, chronic A. fib, LVH, anxiety, hypothyroidism, CHF and recurrent pulmonary infiltrates who has had multiple admissions since January. Patient was admitted from 02/04 -02/12 for respiratory symptoms-underwent bronchoscopy with biopsy that showed interstitial lung disease. Patient was admitted again from 04/27-05/07 for increased respiratory distress-bronchoscopy showed alveolar hemorrhage and she required intubation during that hospitalization. Patient has PFTs that showed an obstructive/restrictive pattern. Patient was again admitted from 05/14 -05/21 when she presented with increased shortness of breath and work of breathing and tested positive for flu A. Patient was seen by palliative consult service during her early May admission-plan was to return to [facility] for rehab and then transition to hospice. Before patient was able to be transition to hospice she returned again to the emergency room on 05/31 with increased shortness of breath and work of breathing. Patient was initially treated with nebs-chest x- ray showed a loculated right pleural effusion with loculations of air. BiPAP was contraindicated. Team attending had discussions with patient's son regarding how aggressive to be with her care regarding her loculated pleural effusion-in patient's current condition would likely not tolerate extensive surgery and chest tube placement. Patient is a DNR/DNI, son declined chest tube, goal is for comfort. Patient is currently on O2 at 7 L via oxime asked. Patient exhibits significant confusion and is unable to participate in any medical decision making. Spoke with patient's son by phone-patient is receiving PRN morphine and Ativan for comfort-son is aware that patient is nearing end-of-life. Son requests if patient becomes more alert that nursing allows him to speak with her by phone. -Goals of care-comfort measures, son declines chest tube or aggressive invasive procedures including intubation. -Acute respiratory distress with hypoxia-patient tolerating O2 at 7 L, patient c omfortable with PRN morphine and PRN Ativan -Empyema-loculated right pleural effusion with loculations of air-patient would likely not tolerate aggressive surgical drainage and chest tube placement given her multiple comorbidities -son has declined any aggressive intervention with goal for comfort -Pneumothorax-patient with large loculations of air on CT scan -Permanent A. fib-rate controlled with metoprolol Patient not medically stable at this point for transfer to facility for end-of-life care. Will continue to follow and assist family with medical decision making, we will continue to collaborate with case management regarding placement with hospice services. (2) Acute respiratory distress: (3) Empyema lung: (4) Pneumothorax on right: (5) Congestive heart failure: (6) Confusion: (7) Permanent atrial fibrillation: Subjective Patient seen and examined-no family at bedside. Collaborated with nursing. Nursing reports patient was anxious earlier this a.m.-trying to remove her O2. Patient was given a dose of PRN Ativan with good response. Approximately 1 hour later patient had increased work of breathing, was given a dose of Roxanol again with good effect. Patient appears comfortable, unlabored breathing. She did not respond to voice or touch. Spoke with son, Rajesh Desir, by phone-he is located in [place]. Son understands patient is nearing end-of-life, requested that if patient were to become more alert that he would be able to talk to her by phone-this was passed on to patient's nurse. Review of Systems Review of Systems: Unobtainable due to cognitive status Physical Exam Physical Exam: PE: Patient appears comfortable, no acute distress HEENT: No excess oral secretions Neck: Hyperextended Respirations: Unlabored, minimal breath sounds on right CV: Tachycardic Abdomen: Not distended Extremities: Right ferris and foot cool to touch, left foot cool to touch Neuro: Unresponsive to voice or touch. Results & Data Vital Signs (Past 12 Hours) Vital Signs Pulse Pulse Resp Pulse Ox 06/03/19 07:23 99 H 22 97 06/03/19 03:22 111 H 25 H 95 PG Care Time/CCT Total # of Minutes Spent Total Time Spent with Patient: Total time spent 35 minutes with greater than 50% of the time spent at bedside assessing patient's current condition and level of comfort as well as speaking to patient's son by phone on the unit Coding Level of Care Code 59937 Subseq Hosp Care Lvl 3 Diagnoses Palliative care encounter Z51.5 Acute respiratory distress R06.03 Empyema lung J86.9 Pneumothorax on right J93.9 Congestive heart failure I50.23 Heart failure chronicity: acute on chronic Heart failure type: systolic Confusion R41.0 Permanent atrial fibrillation I48.2 Time Spent (min) 35 (1) Congestive heart failure Heart failure chronicity: acute on chronic Heart failure type: systolic Qualified Code(s): I50.23 - Acute on chronic systolic (congestive) heart failure
[2019-06-04] MEDS: MoRPHine SULFATE 5 MG/0.25 ML UDP PO PRN ×2 (00:12→09:42)
[2019-06-04] MEDS: LORazepam 1 MG TAB SL PRN ×2 (00:12→09:42)
[2019-06-04] MEDS: LEVOTHYROXINE SODIUM 75 MCG TABLET PO SCH (05:33)
--- NOTE | 2019-06-04 09:56 | Palliative Care Progress Note ---
Date of Service June 04, 2019 Assessment & Plan (1) Comfort measures only status: -Patient is obtunded, agonally breathing. -Receiving Roxanol PRN pain or SOB. -Receiving sublingual lorazepam-- will switch to IV as patient's mouth is dry. -Mottling of bilateral knees. Patient expected to in hours to possibly days. Not stable for transfer out of hospital at this time. 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 (2) Empyema lung: (3) Congestive heart failure: Subjective Patient is obtunded. Agonally breathing. Does appear comfortable after PRN medications administered. Review of Systems Review of Systems: Unobtainable due to reduced consciousness Physical Exam Constitutional: + ill appearing and comfortable ENMT: Mouth: + dry oral mucous membranes Respiratory: normal respiratory effort; no respiratory distress Auscultation: + diminished lung sounds and + rhonchi Cardiovascular: Rate/Rhythm: regular rhythm and + tachycardic Extremities: no edema Skin: + mottling (BL knees) Neurologic: + obtunded PG Care Time/CCT Total # of Minutes Spent Total Time Spent with Patient: Total time spent is greater than 50% in coordination of care (as documented) at patient's floor/unit and/or counseling patient: 25 minutes. Coding Level of Care Code 54579 Subseq Hosp Care Lvl 2 Diagnoses Comfort measures only status Z51.5 Empyema lung J86.9 Congestive heart failure I50.23 Heart failure chronicity: acute on chronic Heart failure type: systolic Time Spent (min) 25 (1) Congestive heart failure Heart failure chronicity: acute on chronic Heart failure type: systolic Qualified Code(s): I50.23 - Acute on chronic systolic (congestive) heart failure
[2019-06-04] MEDS ORDERED: LORazepam 0.5 MG/1 ML VIAL IV PRN (09:57)
--- NOTE | 2019-06-04 10:22 | Hospitalist Progress Note ---
Date of Service June 04, 2019 Assessment & Plan (1) Cavitary lesion of lung: Presented with severe respiratory distress with worsening CT chest on 05/31 shows a pleural effusion and large pockets of air in the right lung. Likely infection vs. a bronchopleural fistula. Was placed by levels of oxygen, given IV steroids and antibiotics initially upon admission. With end-stage severe pulmonary disease. After discussion with son, Rajesh, who feels his mother is suffering and would like to make her comfort care on 05/31. No chest tubes or aggressive measures to be taken Is unresponsive today, appears comfortable - Stop life-prolonging measures unless they keep her comfortable, e.g. oxygen. -Continue morphine, Ativan, atropine as needed Can only return to shelter facility with hospice if oxygen flow is 6 L or less -hold home p.o. meds of prednisone, metoprolol, Singulair, Protonix, levothyroxine if not awake/alert Appreciate palliative care consultation Dispo-suspect will pass away here in the next 2-3 days (2) Pneumothorax on right: (3) Acute respiratory distress: Admission and Anticipated Discharge Date Admission Date: June 01, 2019 Physical Exam Constitutional: average body habitus; no acute distress Eyes: + anicteric sclerae Neck: trachea midline, no thyromegaly Respiratory: normal respiratory effort Auscultation: + diminished lung soun ds (Right base) and + crackles (Middle lung waller) Cardiovascular: RRR, no murmur, no edema Chest (Breasts): Chest: normal inspection of chest Gastrointestinal (Abdomen): normal bowel sounds, soft, nontender, no hepatosplenomegaly Musculoskeletal: Extremities: extremities normal to inspection; no cyanosis and no clubbing Skin: no rashes, warm and dry Neurologic: + obtunded Psychiatric: Orientation: alert, oriented to person, oriented to place and cooperative; + not oriented to time (Only the year but not the month and date) Eye Contact: good eye contact Lymphatic: no lymphedema PG Care Time/CCT Total # of Minutes Spent Total Time Spent with Patient: Total time spent is greater than 50% in coordination of care (as documented) at patient's floor/unit and/or counseling patient: Coding Diagnoses Cavitary lesion of lung J98.4 Pneumothorax on right J93.9 Acute respiratory distress R06.03
--- NOTE | 2019-06-04 13:48 | Death Pronouncement Note ---
Date of Service June 04, 2019 Pronouncement Note Admission Date Admission Date: June 01, 2019 Date and Time of Date of : 06/04/19 Time of : 13:30 PCOD Preliminary cause of : Acute respiratory failure with hypoxia Contributing Factors (1) Cavitary lesion of lung: (2) Pneumothorax on right: (3) Acute respiratory distress: Hospital Course Hospital Course: Cavitary lesion of lung: Presented with severe respiratory distress with worsening CT chest on 05/31 shows a pleural effusion and large pockets of air in the right lung. Likely infection vs. a bronchopleural fistula. Was placed by levels of oxygen, given IV steroids and antibiotics initially upon admission. With end-stage severe pulmonary disease and multiple recent admissions for pneumonia and respiratory failure with most recent with suspicion fo rbronchopleural fistula and declines chest tube or VATS at that time. After discussion with son, Rajesh, who feels his mother is suffering and would like to make her comfort care on 05/31. No chest tubes or aggressive measures to be taken Became unresponsive due to hypoxia and medicated for comfort with morphine and ativan She peacefully at 1330 on 06/04/19 Appreciate palliative care consultation. Son, Rajesh, was called and notified of his mother's passing. Summary Additional details: As above Additional Data Confirmation of : no pulse, no respirations, no heart sounds and pupils fixed and dilated Family: contacted Attending/PCP notified?: Yes Attending physician: Lexi Hoyt MD Was code activated?: No Autopsy requested?: No waste examiner notified?: No Coding Level of Care Code None Diagnoses Cavitary lesion of lung J98.4 Pneumothorax on right J93.9 Acute respiratory distress R06.03
--- NOTE | 2019-06-10 16:41 | Discharge Summary ---
Date of Service June 04, 2019 Admission HPI Per Admitting Provider The patient is an 78-year-old female with a past medical history including pleural effusion, pneumonia, atrial fibrillation, pulmonary alveolar hemorrhage, urinary retention, permanent atrial fibrillation, diabetes mellitus, hypothyroidism, sensorineural hearing loss and chronic respiratory failure. She was most recently admitted to [facility] from 05/15/2019-05/23/2019 for similar symptoms. During that visit, patient was admitted to the ICU and among other treatments was offered a chest tube, which her son declined. In the emergency department patient was found to be in moderate to severe respiratory distress, with work-up including CT of the chest which showed a pneumothorax and areas of loculation and pockets of what was thought to be gas-forming bacterial infection. Her son did return phone call, and decision was made that the patient will undergo conservative treatment with antibiotics and nebulizer treatments, but when elevated go chest tube placement, BiPAP or intubation. She was started on high flow in the ED, and did feel better than with nasal cannula. 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, pneumothorax Discharge Exam See pronouncement-pronounced Discharge Data Allergies Allergy/AdvReac Type Severity Reaction Status Date / Time Sulfa (Sulfonamide Allergy Intermediate HIVES Verified 06/01/19 01:15 Antibiotics) cat dander Allergy Unknown ALLERGIES Verified 06/01/19 01:15 desloratadine Allergy Unknown Unknown Verified 06/01/19 01:15 house dust Allergy Unknown ALLERGIES Verified 06/01/19 01:15 mold Allergy Unknown Unknown Verified 06/01/19 01:15 amoxicillin AdvReac Mild GI SYMPTOMS Verified 06/01/19 01:15 atropine AdvReac Mild pain & Verified 06/01/19 01:15 diarrhea diphenoxylate AdvReac Mild pain & Verified 06/01/19 01:15 diarrhea moxifloxacin AdvReac Mild pain & Verified 06/01/19 01:15 diarrhea Cipro AdvReac Unknown GI SYMPTOMS Unverified 07/12/17 08:57 ciprofloxacin AdvReac Unknown GI SYMPTOMS Verified 06/01/19 01:15 clavulanic acid AdvReac Unknown GI SYMPTOMS Verified 06/01/19 01:15 erythromycin base AdvReac Unknown GI SYMPTOMS Verified 06/01/19 01:15 metronidazole AdvReac Unknown GI SYMPTOMS Verified 06/01/19 01:15 minocycline AdvReac Unknown GI SYMPTOMS Verified 06/01/19 01:15 [id number] Reductase AdvReac Unknown Unknown Verified 06/01/19 01:15 Inhibitor Consultations 06/01/19 03:39 ED Decision to Admit Stat 06/01/19 05:39 Consult Case Management - Discharge Planning Routine 06/02/19 09:48 Consult Palliative Care Routine Ordered Studies 06/01/19 02:51 CT chest wo con Urgent Hospital Course (1) Cavitary lesion of lung: Presented with severe respiratory distress with worsening CT chest on 05/31 shows a pleural effusion and large pockets of air in the right lung. Likely infection vs. a bronchopleural fistula. Was placed by levels of oxygen, given IV steroids and antibiotics initially upon admission. With end-stage severe pulmonary disease. After discussion with son, Rajesh, who feels his mother is suffering and would like to make her comfort care on 05/31. No chest tubes or aggressive measures to be taken (2) Pneumothorax on right: (3) Acute respiratory distress: Total Time Total Time Spent Total Time Spent (In Minutes): 10 min Discharge Plan Discharge Items Patient Disposition: Reason For Visit: ACUTE ON CHRONIC RESP FAILURE WITH HYPOXIA Follow-up/Referrals: Sheyla Alfaro DO [Primary Care Provider] - Stand-Alone Forms: [facility] Admission Data Admit Date/Time: 06/01/19 04:14 Other DC Date/Time DO NOT enter until pt leaves facility: 06/04/19 19:15 Coding Level of Care Code None Diagnoses Cavitary lesion of lung J98.4 Pneumothorax on right J93.9 Acute respiratory distress R06.03
== END 2019-06-04 19:15 | disposition expired | DRG 205 ==
LOC: ED 00:40 → SUATTDRO 04:14 → 2E 04:14 → 2W 06-02 10:57